=== PATIENT | male | born 2000 | race Caucasian/White ===

== ENCOUNTER → 2019-08-12 14:57 | Outpatient (BNVA) | payer MEDICAID, SELFPAY | PROVIDERS: Visit Provider Nurse Practitioner Family | DX: Z20.828 Contact with and (suspected) exposure to other viral communicable diseases (principal) | CPT/HCPCS: 87804 ==

== ENCOUNTER → 2019-10-12 12:10 | Outpatient (BNVA) | payer MEDICAID, SELFPAY | PROVIDERS: Visit Provider Nurse Practitioner Family | DX: R31.9 Hematuria, unspecified (principal); R31.0 Gross hematuria; R30.0 Dysuria | CPT/HCPCS: 80053; 81003; 85025; 87077; 87086; 87186 ==

== ENCOUNTER 2019-10-18 08:19 | Outpatient (CLI) | payer MEDICAID, SELFPAY ==
--- NOTE | 2019-10-18 09:15 | CT_ITS ---
WS: [id number] CT ABDOMEN PELVIS TECHNIQUE: Noncontrast CT of the abdomen and pelvis with coronal and sagittal reformatted images. CLINICAL INFORMATION: hematuria; right flank pain COMPARISON: None. DLP: 1061.[address] scans at [facility] use at least one of these dose optimization techniques: automat ed exposure control; mA and/or kV adjustment per patient size (includes targeted exams where dose is matched to clinical indication); or iterative reconstruction. FINDINGS: Noncontrast liver is normal. Normal adrenal glands. Noncontrast spleen is normal. Normal GE junction. Patchy subpleural groundglass infiltrates in the right lower lobe suspicious for pneumonitis. This c an be seen with viral pneumonia. Recommend chest CT for further evaluation. Recommend follow-up to re solution. Left lung base is well aerated. No ureteral calculi. No hydronephrosis. Normal caliber abdominal aorta. Scattered stool in the colon. Mild to moderate transverse colon constipation. Appendix is normal. No periaortic lymphadenopathy. N o inguinal lymphadenopathy. CT/CT kidney stone [id number] IMPRESSION: 1. No renal or ureteral calculi. No hydronephrosis. 2. Appendix in the right lower quadrant is air-filled and normal. 3. No abdominal lymphadenopathy. 4. Patchy groundglass subpleural infiltrates in the right lower lobe suspiciou s for pneumonia. This can be seen with viral pneumonia. Recommend further evalu ation with chest CT and follow-up to resolution.
== END 2019-10-18 08:20 | disposition home or self-care (01) ==
LOC: RADWPI 08:23
PROVIDERS: PCP Nurse Practitioner Family; Visit Provider Nurse Practitioner Family
DX: R31.0 Gross hematuria (principal); R10.9 Unspecified abdominal pain; R91.8 Other nonspecific abnormal finding of lung field
CPT/HCPCS: 74176

== ENCOUNTER → 2019-10-22 08:40 | Outpatient (BNVA) | payer MEDICAID, SELFPAY | PROVIDERS: PCP Nurse Practitioner Family; Visit Provider Nurse Practitioner Family | DX: N30.01 Acute cystitis with hematuria (principal); R30.0 Dysuria | CPT/HCPCS: 81001 ==

== ENCOUNTER → 2019-10-25 16:50 | Outpatient (BNVA) | payer MEDICAID, SELFPAY | PROVIDERS: PCP Nurse Practitioner Family; Visit Provider Nurse Practitioner Family | DX: N30.01 Acute cystitis with hematuria (principal); J30.2 Other seasonal allergic rhinitis; R56.9 Unspecified convulsions | CPT/HCPCS: 80053; 81000 ==

== ENCOUNTER 2019-11-09 13:56 | Outpatient (CLI) | payer MEDICAID, SELFPAY ==
--- NOTE | 2019-11-09 14:30 | CT_ITS ---
WS: [id number] CT CHEST WITH INTRAVENOUS CONTRAST HISTORY: hemoptysis 3 days ago and f/u from abd/pelv CT TECHNIQUE: Contiguous 5 mm axial imaging performed on the thorax. Coronal and sagittal reformats are submitted. All CT scans at [facility] use at least one of these dose optimization techniq ues: automated exposure control; mA and/or kV adjustment per patient size (includes targeted exams wh ere dose is matched to clinical indication); or iterative reconstruction. CONTRAST: Visipaque 320; 75 mL IV. DLP: 516.95 mGycm COMPARISON: CT 10/18/2019 Lungs and central airway: Resolved RIGHT lower lobe opacification. Lungs are clear. No pneumonia. Pleura: Normal. No pleural effusion. Heart and pericardium: Normal size heart. No pericardial effusion. Mediastinum and feliberto: No mediastinum or hilar adenopathy. Vessels: Normal size aortic and pulmonary artery. No coronary artery calcifications. Chest wall and lower neck: No soft tissue masses. Upper abdomen: Moderate distention of the transverse colon with fecal material. Visualized adrenal gl ands are normal. Osseous structures: No destructive process. CT/CT chest w con* [id number] IMPRESSION: Normal chest CT. Resolved RIGHT lower lobe pneumonia.
[2019-11-09] MEDS: iodixanol 320 mg/mL 100mL Btl IV (14:48)
== END 2019-11-09 13:57 | disposition home or self-care (01) ==
LOC: RADWPI 14:02
PROVIDERS: PCP Nurse Practitioner Family; Visit Provider Nurse Practitioner Family
DX: R04.2 Hemoptysis (principal)
CPT/HCPCS: 71260; Q9967

== ENCOUNTER → 2020-04-26 15:14 | Outpatient (BNVA) | payer MEDICAID, SELFPAY | PROVIDERS: PCP Nurse Practitioner Family; Visit Provider Urology | DX: N30.01 Acute cystitis with hematuria (principal) | CPT/HCPCS: 81003 ==

== ENCOUNTER → 2020-07-17 13:37 | Outpatient (BNVA) | payer MEDICAID, SELFPAY | PROVIDERS: PCP Nurse Practitioner Family; Visit Provider Nurse Practitioner Family | DX: N30.01 Acute cystitis with hematuria (principal) | CPT/HCPCS: 81003; 87086 ==

== ENCOUNTER → 2020-08-10 13:28 | Outpatient (BNVA) | payer MEDICAID, SELFPAY | PROVIDERS: PCP Nurse Practitioner Family; Visit Provider Psychiatry & Neurology Neurology | DX: R56.9 Unspecified convulsions (principal) | CPT/HCPCS: 80164 ==

== ENCOUNTER 2020-12-02 17:43 | Emergency (ER) | payer MEDICAID, SELFPAY ==
--- NOTE | 2020-12-02 03:22 | XRR_ITS ---
PROCEDURE INFORMATION: Exam: XR Chest Exam date and time: 12/02/2020 3:22 AM Age: 20 years old Clinical indication: Fever; Additional info: Fever AMS TECHNIQUE: Imaging protocol: XR of the chest. Views: 1 view. COMPARISON: CT chest w con* [id number] 11/09/2019 2:45 PM FINDINGS: Lungs: Unremarkable. No consolidation. Pleural spaces: Unremarkable. No pleural effusion. No pneumothorax. Heart/Mediastinum: Unremarkable. No cardiomegaly. Bones/joints: Unremarkable. XR/XR chest 1V portable [id number] IMPRESSION: No acute findings.
[2020-12-02 17:49] VITALS: BP 122/60; PULSE 100; RESP 17; TEMP 37.9; O2SAT 89; BMI 24.1
--- NOTE | 2020-12-02 18:33 | CTR_ITS ---
PROCEDURE INFORMATION: Exam: CT Head Without Contrast Exam date and time: 12/02/2020 6:33 PM Age: 20 years old Clinical indication: Condition or disease; Convulsions or seizures; Unspecified; Patient HX: Recent med changes - seizure x 2 today w fever; Additional info: Dimas MOSS TECHNIQUE: Imaging protocol: Computed tomography of the head without contrast. Radiation optimization: All CT scans at this facility use at least one of these dose optimization techniques: automated exposure control; mA and/or kV adjustment per patient size (includes targeted exams where dose is matched to clinical indication); or iterative reconstruction. COMPARISON: No relevant prior studies available. RADIATION DOSE METRICS: Total DLP (mGy-cm): 840.33 FINDINGS: Brain: Normal. No hemorrhage. Unremarkable white matter. No mass effect. Cerebral ventricles: No ventriculomegaly. Paranasal sinuses: Visualized sinuses are unremarkable. No fluid levels. Mastoid air cells: Visualized mastoid air cells are well aerated. Bones/joints: Unremarkable. No acute fracture. Soft tissues: Unremarkable. CT/CT head wo con* [id number] IMPRESSION: No acute intracranial abnormality. Radiation Dose CTDIVOL = (mGy): DLP = 840.33 (mGy-cm)
[2020-12-02 18:49] LABS: Basophils # 0.1 10^3/uL (0.0-0.1); Basophils % 0.6 %; Eosinophils # 0.2 10^3/uL (0.0-0.8); Hematocrit 42.3 % (42.0-52.0); Lymphocytes # 0.9 10^3/uL (0.8-4.8); Lymphocytes % 8.8 %; Mean Corpuscular HGB Conc 33.1 g/dL (30.0-36.0); Mean Corpuscular Hemoglobin 30.8 pg (28.0-34.0); Mean Corpuscular Volume 93.2 fL (80-94); Mean Platelet Volume 9.2 fL (7.4-10.4); Monocytes # 0.8 10^3/uL (0.2-0.9); Monocytes % 7.5 %; Neutrophils % 80.6 %; Nucleated Red Blood Cells % 0 %; Platelet Count 205 10^3/cmm (130-400); Red Blood Count 4.54 10^6/uL (4.1-5.3); Red Cell Distribution Width 11.9 % (12.1-15.1); White Blood Count 10.2 10^3/uL (4.0-10.0)
[2020-12-02] MEDS: ondansetron 2 mg/ML SDV 2 mL 4 MG IVP (18:51)
[2020-12-02] MEDS: sodium chloride 0.9% 1,000 ML 999 ML IV ×2 (18:51→20:46)
[2020-12-02] MEDS: ketorolac 30 mg/mL INJ IVP (18:51)
[2020-12-02] MEDS: LORazepam 2 mg/mL INJ 1 mL 1.5 MG IVP (18:51)
[2020-12-02 18:56] VITALS: BP 105/65; PULSE 94; RESP 16; O2SAT 95
[2020-12-02 19:09] LABS: Alanine Aminotransferase 13 U/L (0-41); Albumin Level 4.2 g/dL (3.5-5.2); Alkaline Phosphatase 69 IU/L (40-130); Anion Gap 15.8 (5-19); Aspartate Amino Transferase 18 U/L (0-40); Blood Urea Nitrogen 4 mg/dL (6-20); Calcium 9.2 mg/dL (8.5-10.5); Carbon Dioxide 25 mmol/L (22-29); Chloride 98 mmol/L (98-107); Creatine Phosphokinase 159 U/L (39-308); Globulin 2.5 g/dL (1.3-4.6); Glomerular Filtration Rate 120.9 mL/min (90-130); Glucose 105 mg/dL (65-115); Osmolality Calculated 277 mOsm/kg (285-295); Potassium 3.8 mmol/L (3.5-5.1); Sodium 135 mmol/L (136-145); Total Bilirubin 0.3 mg/dL (0.15-1.2); Total Protein 6.7 g/dL (6.6-8.7); Valproic Acid Level 63.5 ug/mL (50-100)
[2020-12-02 19:10] LABS: Lactate (Lactic Acid level) 3.1 mmol/L (0.5-2.2)
[2020-12-02 19:12] LABS: Alcohol Level < 10 mg/dL (0-10)
[2020-12-02 19:15] LABS: Procalcitonin 0.18 ng/mL (0-0.5)
[2020-12-02 20:15] LABS: Add Urine Microscopic? NO; Charge for UA Resulting for Rev
[2020-12-02 20:18] LABS: Bilirubin Urine Neg (Negative); Blood Urine Neg (Negative); Glucose Urine UA Norm (Normal); Ketones Urine Negative (Negative); Leukocyte Esterase Urine Negative (Negative); Nitrate Urine Negative (Negative); Protein Urine Neg (Negative); Specific Gravity, Urine 1.005 (1.005-1.030); Urine Appearance Clear (CLEAR); Urine Color Yellow (Yellow); Urobilinogen Urine Norm (Negative); pH Urine 7 (5-7)
[2020-12-02 20:28] LABS: Amphetamines Screen Urine Negative (Negative); Barbiturates Screen Urine Negative (Negative); Benzodiazepines Screen Urine Negative (Negative); Cocaine Screen Urine Negative (Negative); Opiate Screen Urine Negative (Negative); PCP Screen Urine Negative (Negative); THC Screen Urine Negative (Negative)
[2020-12-02 20:30] VITALS: BP 122/66; PULSE 96; RESP 21; O2SAT 98
--- NOTE | 2020-12-02 20:34 | CTR_ITS ---
PROCEDURE INFORMATION: Exam: CTA Chest With Contrast Exam date and time: 12/02/2020 8:34 PM Age: 20 years old Clinical indication: Chest pressure; Patient HX: C/O chest pain/pressure TECHNIQUE: Imaging protocol: Computed tomographic angiography of the chest with contrast. 3D rendering (Not supervised by radiologist): MIP and/or 3D reconstructed images were created by the technologist. Radiation optimization: All CT scans at this facility use at least one of these dose optimization techniques: automated exposure control; mA and/or kV adjustment per patient size (includes targeted exams where dose is matched to clinical indication); or iterative reconstruction. Contrast material: OMNI 350; Contrast volume: 55 ml; Contrast route: INTRAVENOUS (IV); COMPARISON: CT chest w con* [id number] 11/09/2019 2:45 PM RADIATION DOSE METRICS: Total DLP (mGy-cm): 540.41 FINDINGS: Pulmonary arteries: Normal. No pulmonary emboli. Aorta: Unremarkable. No aortic aneurysm. No aortic dissection. Lungs: Unremarkable. No consolidation. No masses. Pleural spaces: Unremarkable. No pneumothorax. No pleural effusion. Heart: Unremarkable. No cardiomegaly. No pericardial effusion. Lymph nodes: Unremarkable. No enlarged lymph nodes. Bones/joints: Unremarkable. No acute fracture. Soft tissues: Unremarkable. CT/CT angio chest PE protcl [id number] IMPRESSION: No acute findings. Radiation Dose CTDIVOL = (mGy): DLP = 540.41 (mGy-cm)
--- NOTE | 2020-12-02 21:18 | W.ED.FEVER ---
HPI - Fever General: Chief Complaint: Fever Stated Complaint: FEVER/seizure Time Seen by Provider: 12/02/20 17:55 History of Present Illness: HPI Narrative: 20-year-old male with a history of seizure disorder. He presents with a fever today. He has a history of developmental delay as well. His mother states he did not feel well yesterday. He had a seizure at 8:00 this morning, along with a fever. He had another seizure at noon and vomited as well at that time. He has been complaining of a headache. He is not been overly coughing or congested. He says that his throat is not sore. He has not missed any medication. No known exposure to illness. MD elicited complaint: fever Pertinent past history: other Onset (ago): day(s) Relieving factors: nothing Associated symptoms: Reports chills, confusion, headache(s), nasal congestion, nausea, rhinorrhea and vomiting; Deny abdominal pain, chest pain, cough or diarrhea Review of Systems Const: Reports: fever(s) and chills ENMT: Reports: nasal congestion Card: Denies: chest pain Resp: Denies: dyspnea, productive cough or non-productive cough GI: Reports: nausea and vomiting; Denies: abdominal pain or diarrhea Neuro: Reports: headache(s) and confusion PFSH ED PFSH: Medical History Acute cystitis Asthma Benign tumor of pituitary gland Constipation, chronic Seasonal allergies Seizures Surgical History History of tonsillectomy and adenoidectomy Hx of hernia repair Family History Father Heart disease Social History Smoking and tobacco status: current every day smoker smokeless tobacco Second hand smoke exposure: Yes Alcohol intake: never Caregiver/support person: No Lives independently: No Household members: family Marital status: Single service: No Current occupational status: disabled History of recent travel: No Current gender identity: Male Physical Exam Const: GENERAL APPEARANCE: lethargic and ill appearing ORIENTATION/CONSCIOUSNESS: Yes oriented to person, Yes oriented to place, Yes oriented to time and Yes lethargic HENMT: COMMON NORMALS: external ears normal and Normal external nose present FACE & SINUS: normal facial exam NOSE: Normal external nose present and No nasal discharge present EXTERNAL EAR: Yes external ears normal THROAT: posterior oropharynx normal; no peritonsillar mass Eye: COMMON NORMALS: Equal, round and reactive pupils present, EOMs intact bilaterally and conjunctivae normal EYELID: eyelids normal CONJUNCTIVA: Yes conjunctivae normal PUPIL: Yes Equal, round and reactive pupils present Neck/C-Spine: GENERAL: No tracheal deviation Chest: COMMONS NORMALS: normal inspection of the chest CHEST: No tenderness Resp: COMMON NORMALS: clear to auscultation bilaterally EFFORT & INSPECTION: No tachypneic, No respiratory distress, No retractions, No uses accessory muscles and No tracheal deviation AUSCULTATION: clear to auscultation bilaterally, no rhonchi, no wheezes and lung sounds not diminished Cardio: COMMON NORMALS: regular rate and regular rhythm RATE: regular rate RHYTHM: regular rhythm HEART SOUNDS: no murmurs PERIPHERAL PULSES: radial pulses present GI: INSPECTION: No abdominal distension AUSCULTATION: No Hyperactive bowel sounds present and No Hypoactive bowel sounds present PALPATION: No Guarding due to palpation present (GI) and No Rigid due to palpation PERCUSSION: no dullness to percussion and no tympanic to percussion Neuro: SENSORIUM/ORIENTATION: Yes oriented to person, Yes oriented to place, Yes oriented to time and Yes lethargic Psych: COMMON NORMALS: mental status grossly normal Skin: COMMON NORMALS: no rashes or lesions noted GENERAL SKIN EXAM: no rashes or lesions noted Course Vital Signs: Vital signs: Vital Signs Temperature 100.2 F H 12/02/20 17:49 Pulse Rate 76 12/02/20 23:56 Respiratory Rate 16 12/02/20 23:56 Blood Pressure 106/64 12/02/20 23:56 Pulse Oximetry 95 12/02/20 23:56 MDM - Fever MDM Narrative: Medical decision making narrative: 20-year-old male with developmental delay. He presents postictal following two seizures earlier today. He is vomited once. He has a fever here. The fever is broken after Toradol and IV fluid bolus. His white blood cell count is 10.2. His electrolytes are essentially normal. His chest x-ray is normal. His oxygenation was not good initially. His pulse ox was reading in the low 90s. He was placed on 2 L of oxygen. He is now on room air, breathing fine. Oxygen saturations 96 to 98% on room air. His heart rate is down now that his fever is broken in the 80s. His blood pressure is 93/47. He is talking. CTA of the chest was ordered, as there is some suspicion of aspiration when he vomited. It is pending. Patient now breathing room air, saturations are above 94%. CTA of the chest is negative. Is much more alert. He has walked in the ER. He will be allowed home. Lab Data: Labs: Lab Results 12/02/20 12/02/20 12/02/20 Range/Units 18:45 18:45 18:45 WBC 10.2 H (4.0-10.0) 10^3/ uL RBC 4.54 (4.1-5.3) 10^6/u L Hgb 14.0 (11.7-16.6) g/dL Hct 42.3 (42.0-52.0) % MCV 93.2 (80-94) fL MCH 30.8 (28.0-34.0) pg MCHC 33.1 (30.0-36.0) g/dL RDW 11.9 L (12.1-15.1) % Plt Count 205 (130-400) 10^3/c mm MPV 9.2 (7.4-10.4) fL Neut % (Auto) 80.6 % Lymph % (Auto) 8.8 % Harrison % (Auto) 7.5 % Eos % (Auto) 2.0 % Baso % (Auto) 0.6 % Neut # (Auto) 8.20 H (1.8-7.7) 10^3/u L Lymph # (Auto) 0.9 (0.8-4.8) 10^3/u L Harrison # (Auto) 0.8 (0.2-0.9) 10^3/u L Eos # (Auto) 0.2 (0.0-0.8) 10^3/u L Baso # (Auto) 0.1 (0.0-0.1) 10^3/u L Nucleated RBC % (a uto) 0 % Nucleated RBCs # 0.0 /100WBC Sodium 135 L (136-145) mmol/L Potassium 3.8 (3.5-5.1) mmol/L Chloride 98 (98-107) mmol/L Carbon Dioxide 25 (22-29) mmol/L Anion Gap 15.8 (5-19) BUN 4 L (6-20) mg/dL Creatinine 0.8 (0.7-1.2) mg/dL GFR Calculation 120.9 (90-130) mL/min Glucose 105 (65-115) mg/dL Calculated Osmolal ity 277 L (285-295) mOsm/k g Lactate 3.1 H (0.5-2.2) mmol/L Calcium 9.2 (8.5-10.5) mg/dL Total Bilirubin 0.3 (0.15-1.2) mg/dL AST 18 (0-40) U/L ALT 13 (0-41) U/L Alkaline Phosphata se 69 (40-130) IU/L Creatine Kinase 159 (39-308) U/L C-Reactive Protein 1.0 (0.0-4.9) mg/L Total Protein 6.7 (6.6-8.7) g/dL Albumin 4.2 (3.5-5.2) g/dL Globulin 2.5 (1.3-4.6) g/dL Procalcitonin 0.18 (0-0.5) ng/mL Urine Color (Yellow) Urine Appearance (CLEAR) Urine pH (5-7) Ur Specific Gravit y (1.005-1.030) Urine Protein (Negative) Urine Glucose (UA) (Normal) Urine Ketones (Negative) Urine Blood (Negative) Urine Nitrate (Negative) Urine Bilirubin (Negative) Urine Urobilinogen (Negative) mg/dL Ur Leukocyte Ita ase (Negative) Urine Opiates Scre en (Negative) ng/mL Ur Barbiturates Sc reen (Negative) ng/mL Valproic Acid 63.5 (50-100) ug/mL Ur Phencyclidine S crn (Negative) ng/mL Ur Amphetamines Sc reen (Negative) ng/mL U Benzodiazepines Scrn (Negative) ng/mL Urine Cocaine Scre en (Negative) ng/mL U Marijuana (THC) Screen (Negative) ng/mL Ethyl Alcohol < 10 (0-10) mg/dL SARS-CoV-2 Ag (Rap id) (Negative) 12/02/20 12/02/20 12/02/20 Range/Units 20:09 20:09 20:54 WBC (4.0-10.0) 10^3/ uL RBC (4.1-5.3) 10^6/u L Hgb (11.7-16.6) g/dL Hct (42.0-52.0) % MCV (80-94) fL MCH (28.0-34.0) pg MCHC (30.0-36.0) g/dL RDW (12.1-15.1) % Plt Count (130-400) 10^3/c mm MPV (7.4-10.4) fL Neut % (Auto) % Lymph % (Auto) % Harrison % (Auto) % Eos % (Auto) % Baso % (Auto) % Neut # (Auto) (1.8-7.7) 10^3/u L Lymph # (Auto) (0.8-4.8) 10^3/u L Harrison # (Auto) (0.2-0.9) 10^3/u L Eos # (Auto) (0.0-0.8) 10^3/u L Baso # (Auto) (0.0-0.1) 10^3/u L Nucleated RBC % (a uto) % Nucleated RBCs # /100WBC Sodium (136-145) mmol/L Potassium (3.5-5.1) mmol/L Chloride (98-107) mmol/L Carbon Dioxide (22-29) mmol/L Anion Gap (5-19) BUN (6-20) mg/dL Creatinine (0.7-1.2) mg/dL GFR Calculation (90-130) mL/min Glucose (65-115) mg/dL Calculated Osmolal ity (285-295) mOsm/k g Lactate (0.5-2.2) mmol/L Calcium (8.5-10.5) mg/dL Total Bilirubin (0.15-1.2) mg/dL AST (0-40) U/L ALT (0-41) U/L Alkaline Phosphata se (40-130) IU/L Creatine Kinase (39-308) U/L C-Reactive Protein (0.0-4.9) mg/L Total Protein (6.6-8.7) g/dL Albumin (3.5-5.2) g/dL Globulin (1.3-4.6) g/dL Procalcitonin (0-0.5) ng/mL Urine Color Yellow (Yellow) Urine Appearance Clear (CLEAR) Urine pH 7 (5-7) Ur Specific Gravit y 1.005 (1.005-1.030) Urine Protein Neg (Negative) Urine Glucose (UA) Norm (Normal) Urine Ketones Negative (Negative) Urine Blood Neg (Negative) Urine Nitrate Negative (Negative) Urine Bilirubin Neg (Negative) Urine Urobilinogen Norm (Negative) mg/dL Ur Leukocyte Ita ase Negative (Negative) Urine Opiates Scre en Negative (Negative) ng/mL Ur Barbiturates Sc reen Negative (Negative) ng/mL Valproic Acid (50-100) ug/mL Ur Phencyclidine S crn Negative (Negative) ng/mL Ur Amphetamines Sc reen Negative (Negative) ng/mL U Benzodiazepines Scrn Negative (Negative) ng/mL Urine Cocaine Scre en Negative (Negative) ng/mL U Marijuana (THC) Screen Negative (Negative) ng/mL Ethyl Alcohol (0-10) mg/dL SARS-CoV-2 Ag (Rap id) Negative (Negative) Discharge Plan Discharge Patient Disposition: Home Clinical Impression: Viral infection, Seizures Condition: Stable Prescriptions: New ondansetron 4 mg film 4 mg PO DAILY PRN (Reason: nausea and vomiting) Qty: 10 RF: 0 No Action latanoprost [Xalatan] 0.005 % drops 1 drop ophthalmic (eye) DAILY RF: 0 Combivent Respimat 20-100 mcg/actuation mist 1 puff INHALATION Q4H PRN (Reason: wheezing) Qty: 4 RF: 3 divalproex [Depakote] 500 mg tablet,delayed release (DR/EC) 500 mg PO DAILY Qty: 30 RF: 3 fluticasone propion-salmeterol [Advair Diskus] 100-50 mcg/dose blister with device 1 inh INHALATION BID Qty: 60 RF: 2 cetirizine [Zyrtec] 10 mg tablet 10 mg PO DAILY Qty: 30 RF: 11 montelukast 10 mg tablet 10 mg PO .HS Qty: 30 RF: 11 fluticasone propionate [Flonase Allergy Relief] 50 mcg/actuation spray,suspension 2 spray INTRANASAL DAILY Qty: 15.8 RF: 5 phenazopyridine [Azo Urinary Pain Relief] 95 mg tablet 95 mg PO TID PRNRF: 0 Discharge Orders: Discharge ED (Routine); Ordered 12/02/20 Ordered By: Patric Rea Referrals: Shima Larson, GARBAGE PERSON [Primary Care Provider] - 1-3 days Discharge Diet: Advance as tolerated and Clear Liquid Discharge Activity: Increase activity as tolerated Patient Instructions: Viral Syndrome (ED), Recurrent Seizures Adult (ED) Activity Restrictions/Additional Instructions: Stay hydrated. Check temperature often, and treat accordingly. Return for repeated episodes of seizure, vomiting liquids or medications, continued alteration of mental status, any other concerning symptoms. Coding Level of Care Code ED Air Chipper for [place] Fwd Exam Comprehensive
[2020-12-02 21:20] LABS: SARS Covid-2 Antigen Negative (Negative)
[2020-12-02] MEDS: iohexol 350 mg/mL 100 mL Btl IV (21:53)
[2020-12-02 22:29] VITALS: BP 105/52; PULSE 81; RESP 17; O2SAT 96
[2020-12-02 23:56] VITALS: BP 106/64; PULSE 76; RESP 16; O2SAT 95
[2020-12-04 12:27] LABS: Quest SARS-CoV-2 RNA NOT DETECTED (NOT DETECTED)
== END 2020-12-02 23:56 | disposition home or self-care (01) ==
PROVIDERS: Family Medicine; Emergency Provider Emergency Medicine; PCP Nurse Practitioner Family
DX: B34.9 Viral infection, unspecified (principal); R56.9 Unspecified convulsions; F17.210 Nicotine dependence, cigarettes, uncomplicated
CPT/HCPCS: 70450; 71045; 71275; 80053; 80164; 80306; 80307; 81003; 82550; 83605; 84145; 85025; 86140; 87426; 87635; 96361; 96374; 96375; 99284; J1885; J2060; J2405; J7030; Q9967

== ENCOUNTER → 2020-12-20 12:53 | Outpatient (BNVA) | payer MEDICAID, SELFPAY | PROVIDERS: PCP Nurse Practitioner Family; Visit Provider Urology | DX: N30.01 Acute cystitis with hematuria (principal) | CPT/HCPCS: 81003 ==

== ENCOUNTER → 2021-01-17 11:20 | Outpatient (BNVA) | payer MEDICAID, SELFPAY | PROVIDERS: PCP Nurse Practitioner Family; Visit Provider Nurse Practitioner Family | DX: Z20.822 Contact with and (suspected) exposure to COVID-19 (principal); Z11.52 Encounter for screening for COVID-19 | CPT/HCPCS: 87635 ==

== ENCOUNTER → 2021-01-23 16:08 | Outpatient (BNVA) | payer MEDICAID, SELFPAY | PROVIDERS: PCP Nurse Practitioner Family; Visit Provider Nurse Practitioner Family | DX: R30.0 Dysuria (principal) | CPT/HCPCS: 81003 ==

== ENCOUNTER 2021-05-12 11:40 | Emergency (ER) | payer MEDICAID, SELFPAY ==
--- NOTE | 2021-05-12 11:42 | W.ED.SEIZURE ---
HPI - Seizure General: Chief Complaint: Seizure Stated Complaint: SEIZURES Time Seen by Provider: 05/12/21 11:42 History of Present Illness: HPI Narrative: Mr. Man is a 20-year-old gentleman with significant past medical history of developmental delayed, asthma, and EEG proven epilepsy who presents to the emergency department due to seizure. His seizures are typically well controlled on his baseline Depakote 500 mg daily and he has periods of time where he goes months seizure-free. He has mostly been at his baseline health though mother does report one episode of dark brown emesis yesterday without significant associated abdominal discomfort or other changes noted. This morning, he was found to have a seizure which was described as generalized shaking and grinding his teeth. This is typical of his seizures. However, the atypical feature is that the first 1 lasted approximately 30 minutes and then 45 minutes later he had another 20-minute seizure. He does have associated postictal period and in the interval he had more last return to baseline though fatigue was still present. He has not taken his medications this morning however has not missed any recent doses otherwise. No other recent changes to health, known provoking, exacerbating, or alleviating factors identified. History provided by patient's mother at bedside. The patient currently follows with Dr. Martinez Review of Systems General: Reports: 10 or more systems reviewed and unremarkable except in HPI and below PFSH ED PFSH: Medical History Acute cystitis Asthma Benign tumor of pituitary gland Constipation, chronic Seasonal allergies Seizures Surgical History History of tonsillectomy and adenoidectomy Hx of hernia repair Family History Father Heart disease Social History Smoking and tobacco status: never smoked Second hand smoke exposure: Yes Alcohol intake: never Caregiver/support person: No Lives independently: No Household members: family Marital status: Single service: No Current occupational status: disabled History of recent travel: No Current gender identity: Male Physical Exam Narrative: EXAM NARRATIVE: GENERAL/CONSTITUTIONAL - well-appearing. No acute distress. Eyes - PERRL, no conjunctival injection ENMT - Atraumatic external nose and ears. No tongue trauma. Moist mucous membranes NECK - supple. trachea midline CARDIOVASCULAR - regular rate and rhythm. RESPIRATORY -clear to auscultation bilaterally. ABDOMEN/GI - Nontender/Nondistended. MSK - Extremities without obvious deformity or tenderness to palpation SKIN - Warm, Dry NEURO - alert and appropriately oriented. No focal neurologic deficits. Patient moves all extremities equally. Does not appear to be postictal. PSYCH/COGNITIVE - patient does appear to have some level of disability Course ED course: - Patient was seen and evaluated by me at bedside - Patient placed on cardiac monitors, IV access obtained - Initial evaluation notable for exam as noted above, no acute distress, not postictal. - Laboratory studies obtained. No acute abnormality to explain the patient's increase in seizure frequency. valproic acid level minimally subtherapeutic though he has not valproic acid yet this morning. Bolus ordered. - I tried to discuss the case with the patient's primary neurologist however he is not on-call and I ended up being connected with his organizations on-call neurologist in [place]. Initially I was thinking of requesting recommendations regarding medication adjustment however after discussion with the neurologist on-call he recommends transfer for further evaluation given that we do not have neurology on-call and do not have ability for EEG - I discussed this recommendation with the patient and his family. Unfortunately they were adamantly opposed to this primarily due to financial reasons. I discussed that hospitals have case management and social workers who can aid in the cost regarding medical care however they continue to decline transfer. - One of the discussions was regarding imaging when discussing with neurology, given that patient will not be transferred and have imaging at receiving facility he was agreeable to obtain CT here. No obvious abnormality to explain patient's seizures. - Ultimately, after thorough discussion of risks and benefits with both patient and his parents he is choosing to leave AGAINST MEDICAL ADVICE. I explained risks of prolonged seizures and the patient and his family verbalized understanding. This is a challenging situation given the patient's baseline cognitive status however given that his parents do not have legal guardianship the patient has to make his own decisions. To the best my ability I believe that he can understand the explanations provided to him and recommendations regarding medical treatment as well as risks for failing to abide by those recommendations - The patient left the emergency department AGAINST MEDICAL ADVICE Vital Signs: Vital signs: Vital Signs Temperature 98.6 F 05/12/21 12:26 Pulse Rate 83 05/12/21 12:26 Respiratory Rate 19 H 05/12/21 12:26 Blood Pressure 131/67 05/12/21 12:26 Pulse Oximetry 97 05/12/21 12:26 MDM - Seizure Medical Records: Attestation: I reviewed the patient's medical records. Lab Data: Attestation: I reviewed the patient's lab results. Labs: Lab Results 05/12/21 05/12/21 05/12/21 12:20 12:20 12:20 WBC 8.2 10^3/uL 10^3/ uL (4.0-10.0) RBC 4.69 10^6/uL 10^6 /uL (4.1-5.3) Hgb 13.9 g/dL g/dL (11.7-16.6) Hct 42.2 % % (42.0-52.0) MCV 90.0 fl fl (80-94) MCH 29.6 pg pg (28.0-34.0) MCHC 32.9 g/dL g/dL (30.0-36.0) RDW 12.6 % % (12.1-15.1) Plt Count 266 10^3/cmm 10^3 /cmm (130-400) MPV 9.4 fL fL (7.4-10.4) Neut % (Auto) 80.9 % % Lymph % (Auto) 9.2 % % [place] % (Auto) 8.2 % % Eos % (Auto) 0.9 % % Baso % (Auto) 0.4 % % Neut # (Auto) 6.61 10^3/uL 10^3 /uL (1.8-7.7) Lymph # (Auto) 0.8 10^3/uL 10^3/ uL (0.8-4.8) [place] # (Auto) 0.7 10^3/uL 10^3/ uL (0.2-0.9) Eos # (Auto) 0.1 10^3/uL 10^3/ uL (0.0-0.8) Baso # (Auto) 0.0 10^3/uL 10^3/ uL (0.0-0.1) Nucleated RBC % (a uto) 0 % % Nucleated RBCs # 0.0 /100WBC /100W BC PT 13.90 SECONDS SEC ONDS (12.1-14.9) INR 1.04 (0.8-1.2) Sodium 139 mmol/L mmol/L (136-145) Potassium 3.9 mmol/L mmol/L (3.5-5.1) Chloride 102 mmol/L mmol/L (98-107) Carbon Dioxide 25 mmol/L mmol/L (22-29) Anion Gap 15.9 (5-19) BUN 8 mg/dL mg/dL (6-20) Creatinine 0.7 mg/dL mg/dL (0.7-1.2) GFR Calculation 141.0 mL/min H mL /min (90-130) Glucose 80 mg/dL mg/dL (65-115) Calculated Osmolal ity 285 mOsm/kg mOsm/ kg (285-295) Calcium 9.0 mg/dL mg/dL (8.5-10.5) Total Bilirubin 0.4 mg/dL mg/dL (0.15-1.2) AST 13 U/L U/L (0-40) ALT 12 U/L U/L (0-41) Alkaline Phosphata se 68 IU/L IU/L (40-130) Total Protein 6.7 g/dL g/dL (6.6-8.7) Albumin 4.3 g/dL g/dL (3.5-5.2) Globulin 2.4 g/dL g/dL (1.3-4.6) Valproic Acid 48.8 ug/mL L ug/m L (50-100) Discharge Plan Discharge Patient Disposition: Home Clinical Impression: Generalized seizure, On valproic acid therapy Condition: Stable Prescriptions: New Diastat AcuDial 5-7.5-10 mg kit 10 mg WI ONCE PRN (Reason: seizure activity) Qty: 1 RF: 1 No Action latanoprost [Xalatan] 0.005 % drops 1 drop ophthalmic (eye) DAILY RF: 0 divalproex [Depakote] 500 mg tablet,delayed release (DR/EC) 500 mg PO DAILY Qty: 30 RF: 3 fluticasone propionate [Flonase Allergy Relief] 50 mcg/actuation spray,suspension 2 spray INTRANASAL DAILY Qty: 15.8 RF: 5 promethazine-DM 6.25-15 mg/5 mL syrup 5 ml PO Q6H PRN (Reason: cough) Qty: 150 RF: 0 meloxicam 15 mg tablet 15 mg PO DAILY Qty: 30 RF: 0 prednisone 20 mg tablet 40 mg PO BID 5 Days Qty: 20 RF: 0 ondansetron HCl [Zofran] 4 mg tablet 4 mg PO Q8H PRN (Reason: nausea and vomiting) Qty: 20 RF: 0 cetirizine [Zyrtec] 10 mg tablet 10 mg PO DAILY Qty: 30 RF: 11 fluticasone propion-salmeterol [Advair Diskus] 100-50 mcg/dose blister with device 1 inh INHALATION BID Qty: 60 RF: 2 Combivent Respimat 20-100 mcg/actuation mist 1 puff INHALATION Q4H PRN (Reason: wheezing) Qty: 4 RF: 3 cephalexin 500 mg capsule 500 mg PO TID 10 Days Qty: 30 RF: 0 montelukast 10 mg tablet 10 mg PO .HS Qty: 30 RF: 11 mupirocin 2 % ointment 1 applic topical TID Qty: 15 RF: 0 Discharge Orders: Discharge ED (Routine); Ordered 05/18/21 Ordered By: Migue Dixon Referrals: Shima Larson FNP [Primary Care Provider] - Discharge Diet: Usual diet Discharge Activity: Limit activity as instructed Patient Instructions: Epilepsy (ED) Activity Restrictions/Additional Instructions: Thank you for visiting the emergency department. You were seen and evaluated for seizure. The exact cause of your seizure is unclear however is likely related to your underlying seizure disorder. As discussed, in consultation with neurology, we recommend transfer and evaluation by a neurologist which you are declining. You are choosing to leave AGAINST MEDICAL ADVICE. Seizures, especially prolonged ones, can cause permanent damage and the longer a seizure persists the less likely it is to resolve on its own. Seizures can also lead to or worse. Please follow-up with your neurologist first thing on Friday. Please follow-up with your primary care provider. You are welcome to go to any emergency department for any reason at any time. Coding Level of Care Code ED Button Decorating Machine Operator for Marcus Cobos
[2021-05-12 11:44] VITALS: BP 131/67; PULSE 81; RESP 17; TEMP 37.1; O2SAT 97; BMI 24.1
[2021-05-12 12:25] LABS: Basophils % 0.4 %; Eosinophils # 0.1 10^3/uL (0.0-0.8); Eosinophils % 0.9 %; Hematocrit 42.2 % (42.0-52.0); Hemoglobin 13.9 g/dL (11.7-16.6); Lymphocytes # 0.8 10^3/uL (0.8-4.8); Lymphocytes % 9.2 %; Mean Corpuscular HGB Conc 32.9 g/dL (30.0-36.0); Mean Corpuscular Hemoglobin 29.6 pg (28.0-34.0); Mean Platelet Volume 9.4 fL (7.4-10.4); Monocytes # 0.7 10^3/uL (0.2-0.9); Monocytes % 8.2 %; Neutrophils # 6.61 10^3/uL (1.8-7.7); Neutrophils % 80.9 %; Nucleated Red Blood Cells % 0 %; Platelet Count 266 10^3/cmm (130-400); Red Blood Count 4.69 10^6/uL (4.1-5.3); Red Cell Distribution Width 12.6 % (12.1-15.1); White Blood Count 8.2 10^3/uL (4.0-10.0)
[2021-05-12 12:26] VITALS: BP 131/67; PULSE 83; RESP 19; TEMP 37; O2SAT 97
[2021-05-12 12:40] LABS: INR 1.04 (0.8-1.2)
[2021-05-12 12:50] LABS: Alanine Aminotransferase 12 U/L (0-41); Albumin Level 4.3 g/dL (3.5-5.2); Alkaline Phosphatase 68 IU/L (40-130); Anion Gap 15.9 (5-19); Aspartate Amino Transferase 13 U/L (0-40); Blood Urea Nitrogen 8 mg/dL (6-20); Carbon Dioxide 25 mmol/L (22-29); Chloride 102 mmol/L (98-107); Globulin 2.4 g/dL (1.3-4.6); Glucose 80 mg/dL (65-115); Osmolality Calculated 285 mOsm/kg (285-295); Potassium 3.9 mmol/L (3.5-5.1); Sodium 139 mmol/L (136-145); Total Bilirubin 0.4 mg/dL (0.15-1.2); Total Protein 6.7 g/dL (6.6-8.7); Valproic Acid Level 48.8 ug/mL (50-100)
[2021-05-12] MEDS: sodium chloride 0.9% 1,000 ML 999 ML IV (12:50)
--- NOTE | 2021-05-12 14:33 | CTR_ITS ---
PROCEDURE INFORMATION: Exam: CT Head Without Contrast Exam date and time: 05/12/2021 2:33 PM Age: 20 years old Clinical indication: Condition or disease; Convulsions or seizures; Epilepsy; Severity not specified; Unspecified; Patient HX: Multiple extended seizures today; Additional info: Seizure TECHNIQUE: Imaging protocol: Computed tomography of the head without contrast. Radiation optimization: All CT scans at this facility use at least one of these dose optimization techniques: automated exposure control; mA and/or kV adjustment per patient size (includes targeted exams where dose is matched to clinical indication); or iterative reconstruction. COMPARISON: CT head wo con* [id number] 12/02/2020 7:07 PM RADIATION DOSE METRICS: Total DLP (mGy-cm): 852.86 FINDINGS: Brain: No intracranial hemorrhage. Normal sanchez white differentiation. No evidence of edema or territorial infarct. No abnormal mass effect or midline shift. No extra-axial fluid collection. Cerebral ventricles: No ventriculomegaly. Paranasal sinuses: Visualized sinuses are unremarkable. No fluid levels. Mastoid air cells: Visualized mastoid air cells are well aerated. Bones/joints: No acute fracture. Soft tissues: Unremarkable. CT/CT head wo con* [id number] IMPRESSION: No acute intracranial abnormality. Radiation Dose CTDIVOL = (mGy): DLP = 852.86 (mGy-cm)
--- NOTE | 2021-05-12 14:56 | PC.NURSE ---
Pts mom at bedside, requesting a urinal for pt. Pt given a urinal and refused assistance from this RN and his mom. Mom spoke with this RN after pt was done and advised pt mostly missed the urinal and his clothes are now wet. Pt offered blue paper scrubs to get changed but refused. Mom advised this RN to call if pt changed his mind about the scrubs
--- NOTE | 2021-05-12 17:20 | PC.NURSE ---
Pt left AMA with parents. Dr. Dixon gave pt prescription and discharge paperwork
== END 2021-05-12 17:22 | disposition home or self-care (01) ==
PROVIDERS: Emergency Provider Emergency Medicine; PCP Nurse Practitioner Family
DX: G40.409 Other generalized epilepsy and epileptic syndromes, not intractable, without status epilepticus (principal); Z77.22 Contact with and (suspected) exposure to environmental tobacco smoke (acute) (chronic)
CPT/HCPCS: 70450; 80053; 80164; 85025; 85610; 96360; 99283; 99291; J7030

== ENCOUNTER 2021-06-10 02:42 | Emergency (ER) | payer MEDICAID, SELFPAY ==
[2021-06-10 02:43] VITALS: BMI 27.5
--- NOTE | 2021-06-10 02:47 | ED_ITS ---
HPI - Seizure General: Chief Complaint: Seizure Stated Complaint: seizures Time Seen by Provider: 06/10/21 02:44 Source: patient and EMS Mode of arrival: EMS Limitations: no limitations History of Present Illness: HPI Narrative: 21-year-old male has a history of epilepsy developmental delay he is on Depakote for his seizures at home. He has been taking his Depakote he has had 2 seizures today one yesterday morning and 1 tonight lasting roughly 2 to 3 minutes he is now awake alert at his baseline has no complaints denies having his head denies headache denies fever denies any recent illness. He had no vomiting or diarrhea. MD complaint: seizure Seizure History: Yes Associated symptoms: Deny chest pain, chills or fever(s) Review of Systems Const: Denies: fever(s), chills, body aches or change in appetite Eyes: Denies: blurry vision or eye discomfort ENMT: Denies: throat pain or dental pain Card: Denies: chest pain Resp: Denies: dyspnea GI: Denies: abdominal pain, nausea, vomiting or diarrhea : Denies: dysuria Musc: Denies: neck pain or back pain Skin/Breast: Denies: rash Neuro: Reports: seizure-like activity Psych: Denies: depression Partha/Lymph: Denies: easy bruising All/Imm: Denies: urticaria PFSH ED PFSH: Medical History Acute cystitis Asthma Benign tumor of pituitary gland Constipation, chronic Seasonal allergies Seizures Surgical History History of tonsillectomy and adenoidectomy Hx of hernia repair Family History Father Heart disease Social History Smoking and tobacco status: never smoked Second hand smoke exposure: Yes Alcohol intake: never Caregiver/support person: No Lives independently: No Household members: family Marital status: Single service: No Current occupational status: disabled History of recent travel: No Current gender identity: Male Physical Exam Const: COMMON NORMALS: no acute distress, patient oriented x3 and healthy appearing HENMT: COMMON NORMALS: normocephalic and atraumatic HEAD & SCALP: normocephalic and atraumatic Eye: COMMON NORMALS: Equal, round and reactive pupils present and EOMs intact bilaterally PUPIL: Yes Equal, round and reactive pupils present Neck/C-Spine: COMMON NORMALS: full ROM and supple Chest: COMMONS NORMALS: normal inspection of the chest and normal palpation of entire chest wall Resp: COMMON NORMALS: normal respiratory effort, No retractions, No use of accessory muscles and clear to auscultation bilaterally AUSCULTATION: clear to auscultation bilaterally Cardio: COMMON NORMALS: regular rate, regular rhythm and No murmurs present (Cardio) RATE: regular rate RHYTHM: regular rhythm GI: COMMON NORMALS: Normal to inspection, nondistended, normoactive bowel sounds present, Soft to palpation, non-tender and no masses PALPATION: Yes Soft to palpation Extremity: COMMON NORMALS: normal to inspection and full ROM Neuro: COMMON NORMALS: patient oriented x3, moves all extremities and no focal motor deficits Psych: COMMON NORMALS: mental status grossly normal, Normal thought process present and cooperative THOUGHT PROCESS: Normal thought process present Skin: COMMON NORMALS: no rashes or lesions noted and no wounds GENERAL SKIN EXAM: no rashes or lesions noted Course Vital Signs: Vital signs: Vital Signs Pulse Rate 122 H 06/10/21 05:08 Respiratory Rate 19 H 06/10/21 05:08 Blood Pressure 113/64 06/10/21 05:08 Pulse Oximetry 94 06/10/21 05:08 MDM - Seizure MDM Narrative: Medical decision making narrative: Patient presents here with multiple seizures at home he had another seizure here as well patient was given Ativan and Depakote blood work here is normal I did speak to physician at [place] and will transfer there for higher level of care as we do not have neurology on-call here and his neurologist is at [place] as well for recurrent seizures. Head CT here is normal. Lab Data: Labs: Lab Results 06/10/21 06/10/21 06/10/21 04:24 04:24 04:24 WBC 9.7 10^3/uL 10^3/ uL (4.0-10.0) RBC 5.01 10^6/uL 10^6 /uL (4.1-5.3) Hgb 14.4 g/dL g/dL (11.7-16.6) Hct 45.4 % % (42.0-52.0) MCV 90.6 fl fl (80-94) MCH 28.7 pg pg (28.0-34.0) MCHC 31.7 g/dL g/dL (30.0-36.0) RDW 12.4 % % (12.1-15.1) Plt Count 311 10^3/cmm 10^3 /cmm (130-400) MPV 9.9 fL fL (7.4-10.4) Neut % (Auto) 46.4 % % Lymph % (Auto) 34.8 % % [place] % (Auto) 15.4 % % Eos % (Auto) 2.5 % % Baso % (Auto) 0.7 % % Neut # (Auto) 4.50 10^3/uL 10^3 /uL (1.8-7.7) Lymph # (Auto) 3.4 10^3/uL 10^3/ uL (0.8-4.8) [place] # (Auto) 1.5 10^3/uL H 10^ 3/uL (0.2-0.9) Eos # (Auto) 0.2 10^3/uL 10^3/ uL (0.0-0.8) Baso # (Auto) 0.1 10^3/uL 10^3/ uL (0.0-0.1) Nucleated RBC % (a uto) 0 % % Nucleated RBCs # 0.0 /100WBC /100W BC Sodium 143 mmol/L mmol/L (136-145) Potassium 3.1 mmol/L L mmol /L (3.5-5.1) Chloride 99 mmol/L mmol/L (98-107) Carbon Dioxide 15 mmol/L L mmol/ L (22-29) Anion Gap 32.1 H (5-19) BUN 5 mg/dL L mg/dL (6-20) Creatinine 0.8 mg/dL mg/dL (0.7-1.2) GFR Calculation 119.8 mL/min mL/m in (90-130) Glucose 130 mg/dL H mg/dL (65-115) Calculated Osmolal ity 295 mOsm/kg mOsm/ kg (285-295) Calcium 9.2 mg/dL mg/dL (8.5-10.5) Valproic Acid 56.2 ug/mL ug/mL (50-100) Imaging Data^: CT Head: Attestation: I personally reviewed and interpreted this imaging study as follows: Radiologist's impression: [id number] [place] [address] CT Scan Report Signed Patient: Hussein Man Unit #: [id number] : 2000 Age/Sex: 21 / M ADM Date: 06/10/21 Loc: ER Room/Bed: Attending Dr: Ordering Provider/Ordering MD: Trinh Jade MD Date of Service: 06/10/21 Procedure(s): CT head wo con* [id number] Accession Number(s): [id number] Report Number: [id number] PROCEDURE INFORMATION: Exam: CT Head Without Contrast Exam date and time: 06/10/2021 3:17 AM Age: 21 years old Clinical indication: Patient HX: Seizure today. History of seizure disorder. History of benign pituitary tumor. TECHNIQUE: Imaging protocol: Computed tomography of the head without contrast. Radiation optimization: All CT scans at this facility use at least one of these dose optimization techniques: automated exposure control; mA and/or kV adjustment per patient size (includes targeted exams where dose is matched to clinical indication); or iterative reconstruction. COMPARISON: 1. CT head wo con* [id number] 2021-05-12 15:[address] head wo con* [id number] 2020-12-02 19:07 RADIATION DOSE METRICS: Total DLP (mGy-cm): 721.14 FINDINGS: Brain: Normal. No hemorrhage. Unremarkable white matter. No mass effect. Cerebral ventricles: No ventriculomegaly. Paranasal sinuses: Visualized sinuses are unremarkable. No fluid levels. Mastoid air cells: Visualized mastoid air cells are well aerated. Bones/joints: Unremarkable. No acute fracture. Soft tissues: Unremarkable. Other findings: Pituitary lesion probably too small to visualize, not visualized on present study. CT/CT head wo con* [id number] IMPRESSION: No acute abnormality or significant change. Dictated By: Cedric Nguyen MD Signed By: Cedric Nguyen MD Signed Date/Time: 06/10/21421 DD/ 0317 Discharge Plan Discharge Patient Disposition: Xfer Short-Term Hosp Clinical Impression: Epileptic seizure Condition: Stable Referrals: Shima Larson FNP [Primary Care Provider] - Coding Level of Care Code ED Data Communications Technician for Chg Fwd Exam Comprehensive
--- NOTE | 2021-06-10 03:17 | CTR_ITS ---
PROCEDURE INFORMATION: Exam: CT Head Without Contrast Exam date and time: 06/10/2021 3:17 AM Age: 21 years old Clinical indication: Patient HX: Seizure today. History of seizure disorder. History of benign pituitary tumor. TECHNIQUE: Imaging protocol: Computed tomography of the head without contrast. Radiation optimization: All CT scans at this facility use at least one of these dose optimization techniques: automated exposure control; mA and/or kV adjustment per patient size (includes targeted exams where dose is matched to clinical indication); or iterative reconstruction. COMPARISON: 1. CT head wo con* [id number] 2021-05-12 15:[address] head wo con* [id number] 2020-12-02 19:07 RADIATION DOSE METRICS: Total DLP (mGy-cm): 721.14 FINDINGS: Brain: Normal. No hemorrhage. Unremarkable white matter. No mass effect. Cerebral ventricles: No ventriculomegaly. Paranasal sinuses: Visualized sinuses are unremarkable. No fluid levels. Mastoid air cells: Visualized mastoid air cells are well aerated. Bones/joints: Unremarkable. No acute fracture. Soft tissues: Unremarkable. Other findings: Pituitary lesion probably too small to visualize, not visualized on present study. CT/CT head wo con* [id number] IMPRESSION: No acute abnormality or significant change.
[2021-06-10 03:55] VITALS: O2SAT 96
--- NOTE | 2021-06-10 03:56 | PC.NURSE ---
pt refuses most treatment; iv, meds, blood pressure being taken, name band being applied. pt however did consent to scans from fall from seizure.
--- NOTE | 2021-06-10 03:59 | PC.NURSE ---
this nurse called pt mother, who is pt jama, and pt mother stated they would not be able to to come to the ER. 'her tires are bad and its slick out' this nurse got the rest of the triage information and informed mother pt was not being cooperative. mother did not acknowledge to me what I said, she began having a disagreement with her . when asked how pt was supposed to get home, pt mother responded that we would need to 'ready transport' to get him home.
[2021-06-10] MEDS: LORazepam 2 mg/mL INJ 1 mL 1 MG IVP (04:20)
[2021-06-10 04:49] LABS: Anion Gap 32.1 (5-19); Blood Urea Nitrogen 5 mg/dL (6-20); Calcium 9.2 mg/dL (8.5-10.5); Carbon Dioxide 15 mmol/L (22-29); Chloride 99 mmol/L (98-107); Glomerular Filtration Rate 119.8 mL/min (90-130); Glucose 130 mg/dL (65-115); Osmolality Calculated 295 mOsm/kg (285-295); Potassium 3.1 mmol/L (3.5-5.1); Sodium 143 mmol/L (136-145)
[2021-06-10 04:56] LABS: Valproic Acid Level 56.2 ug/mL (50-100)
[2021-06-10 05:07] LABS: Basophils # 0.1 10^3/uL (0.0-0.1); Basophils % 0.7 %; Eosinophils # 0.2 10^3/uL (0.0-0.8); Eosinophils % 2.5 %; Hematocrit 45.4 % (42.0-52.0); Hemoglobin 14.4 g/dL (11.7-16.6); Lymphocytes # 3.4 10^3/uL (0.8-4.8); Lymphocytes % 34.8 %; Mean Corpuscular HGB Conc 31.7 g/dL (30.0-36.0); Mean Corpuscular Hemoglobin 28.7 pg (28.0-34.0); Mean Corpuscular Volume 90.6 fl (80-94); Mean Platelet Volume 9.9 fL (7.4-10.4); Monocytes # 1.5 10^3/uL (0.2-0.9); Monocytes % 15.4 %; Neutrophils % 46.4 %; Nucleated Red Blood Cells % 0 %; Platelet Count 311 10^3/cmm (130-400); Red Blood Count 5.01 10^6/uL (4.1-5.3); Red Cell Distribution Width 12.4 % (12.1-15.1); White Blood Count 9.7 10^3/uL (4.0-10.0)
[2021-06-10 05:08] VITALS: BP 113/64; PULSE 122; RESP 19; O2SAT 94
[2021-06-10] MEDS: valproic acid inj 1,000 MG in sodium chloride 0.9% 50 ML 55 MG IV (05:18)
--- NOTE | 2021-06-10 05:23 | PC.NURSE ---
this nurse called report to [facility] 6th floor.
[2021-06-10 06:38] VITALS: BP 110/61; PULSE 90; RESP 15; O2SAT 91
== END 2021-06-10 07:52 | disposition short-term general hospital (02) ==
PROVIDERS: Emergency Provider Emergency Medicine; PCP Nurse Practitioner Family
DX: G40.909 Epilepsy, unspecified, not intractable, without status epilepticus (principal); Z77.22 Contact with and (suspected) exposure to environmental tobacco smoke (acute) (chronic)
CPT/HCPCS: 70450; 80048; 80164; 85025; 96365; 96375; 99284; J2060

== ENCOUNTER → 2021-06-15 12:29 | Outpatient (BNVA) | payer MEDICAID, SELFPAY | PROVIDERS: PCP Nurse Practitioner Family; Visit Provider Nurse Practitioner Family | DX: Z20.822 Contact with and (suspected) exposure to COVID-19 (principal); Z11.52 Encounter for screening for COVID-19; R50.9 Fever, unspecified; R56.9 Unspecified convulsions; R05.9 Cough, unspecified; J01.00 Acute maxillary sinusitis, unspecified | CPT/HCPCS: 80053; 87635 ==

== ENCOUNTER → 2021-07-09 16:47 | Outpatient (BNVA) | payer MEDICAID, SELFPAY | PROVIDERS: PCP Nurse Practitioner Family; Visit Provider Nurse Practitioner Family | DX: Z20.822 Contact with and (suspected) exposure to COVID-19 (principal); R05.9 Cough, unspecified; J01.00 Acute maxillary sinusitis, unspecified; H91.92 Unspecified hearing loss, left ear; R50.9 Fever, unspecified | CPT/HCPCS: 87635 ==

== ENCOUNTER → 2021-08-28 10:57 | Outpatient (BNVA) | payer MEDICAID, SELFPAY | PROVIDERS: PCP Nurse Practitioner Family; Visit Provider Nurse Practitioner Family | DX: J45.909 Unspecified asthma, uncomplicated (principal); J30.2 Other seasonal allergic rhinitis; F41.9 Anxiety disorder, unspecified; R56.9 Unspecified convulsions | CPT/HCPCS: 87071; 87880 ==

== ENCOUNTER → 2021-11-01 14:42 | Outpatient (BNVA) | payer MEDICAID, SELFPAY | PROVIDERS: PCP Nurse Practitioner Family; Visit Provider Psychiatry & Neurology Neurology | DX: R56.9 Unspecified convulsions (principal) | CPT/HCPCS: 80164 ==

== ENCOUNTER → 2021-11-06 15:13 | Outpatient (BNVA) | payer MEDICAID, SELFPAY | PROVIDERS: PCP Nurse Practitioner Family; Visit Provider Nurse Practitioner Family | DX: R07.81 Pleurodynia (principal) | CPT/HCPCS: 71046; 80053; 80164 ==

== ENCOUNTER → 2021-11-07 17:00 | Outpatient (BNVA) | payer MEDICAID, SELFPAY | PROVIDERS: PCP Nurse Practitioner Family; Visit Provider Nurse Practitioner Family | DX: R73.9 Hyperglycemia, unspecified (principal) | CPT/HCPCS: 83036 ==

== ENCOUNTER → 2021-11-12 09:03 | Outpatient (BNVA) | payer MEDICAID, SELFPAY | PROVIDERS: PCP Nurse Practitioner Family; Visit Provider Surgery | DX: K21.9 Gastro-esophageal reflux disease without esophagitis (principal); R13.10 Dysphagia, unspecified | CPT/HCPCS: 99203 ==

== ENCOUNTER 2021-11-26 11:17 | Outpatient (CLI) | payer MEDICAID, SELFPAY ==
--- NOTE | 2021-11-26 11:28 | FL_ITS ---
WS: [id number] Exam: FL barium swallow [id number] Date/Time of Exam: 11/26/2021 11:31 AM Reason For Exam: DYSPHAGIA Fluoroscopy time: 1min [phone] minutes # of spot films: 7 The study is significantly limited due to the patient's inability to ingest the usual amount of carin um for the test. The visualized esophagus appears to be patent. No obvious stricture or mass. Barium spills freely int o the stomach. FL/FL barium swallow [id number] IMPRESSION: 1. Significantly limited exam due to the patient's inability to ingest the usua l volume of barium for the study. 2. The visualized esophagus appears to be patent without evidence of mass or st ricture. No aspiration was observed.
== END 2021-11-26 11:18 | disposition home or self-care (01) ==
LOC: RAD 11:21
PROVIDERS: PCP Nurse Practitioner Family; Visit Provider Specialist
DX: R13.10 Dysphagia, unspecified (principal)
CPT/HCPCS: 74220

== ENCOUNTER 2022-01-18 17:44 | Emergency (ER) | payer MEDICAID, SELFPAY ==
[2022-01-18 17:49] VITALS: BP 110/65; PULSE 113; RESP 16; TEMP 37.7; O2SAT 95; BMI 26.6
--- NOTE | 2022-01-18 17:57 | ECG_ITS ---
[facility] Test Date: 2022-01-18 Pat Name: Hussein Man Department: Room: Gender: Male Cloth Coverer: : 2000 Requested By: Trinh Jade Order Number: [id number] Elver MD: Sade Morgan M.D. Measurements Intervals [place] Rate: 109 P: 15 [place]: 129 QRS: 19 QRSD: 76 T: 18 QT: 290 QTc: 391 Interpretive Statements SINUS TACHYCARDIA ABNORMAL RHYTHM ECG Compared to ECG 09/23/2017 15:14:54 Sinus rhythm no longer present Electronically Signed On 01-18-2022 18:30:17 CDT by Sade Morgan M.D. [id number]
--- NOTE | 2022-01-18 18:02 | ED_ITS ---
HPI - Headache General: Chief Complaint: Headache Stated Complaint: ear pain, headache, fever Time Seen by Provider: 01/18/22 18:02 Limitations: physical limitation History of Present Illness: Mr. Man is a 21-year-old gentleman with significant past medical history of nonverbal autism who presents to the emergency department accompanied by mother due to headache, dizziness, nausea and vomiting since this morning. He had 1 episode of emesis around noon. Apparently he has been complaining of headache. Does not frequently get headaches. T-max at home 103 ?F. History otherwise limited by baseline medical condition. Onset (ago): hour(s) Review of Systems General: Reports: ROS unobtainable due to medical condition PFSH ED PFSH: Medical History Acute cystitis Asthma Benign tumor of pituitary gland Constipation, chronic Psychiatric care Seasonal allergies Seizures Surgical History History of tonsillectomy and adenoidectomy Hx of hernia repair Family History Father Heart disease Social History Smoking and tobacco status: current every day smoker smokeless tobacco Smokeless tobacco user: chewing tobacco Second hand smoke exposure: Yes Alcohol intake: never Caregiver/support person: No Lives independently: No Household members: family Marital status: Single service: No Current occupational status: disabled History of recent travel: No Current gender identity: Male Physical Exam Const: COMMON NORMALS: alert GENERAL APPEARANCE: cooperative and well developed HENMT: COMMON NORMALS: normocephalic, atraumatic, external ears normal, TM's normal bilaterally and Normal external nose present HEAD & SCALP: normocephalic and atraumatic NOSE: Normal external nose present EXTERNAL EAR: Yes external ears normal TYMPANIC MEMBRANE: TM's normal bilaterally Eye: COMMON NORMALS: conjunctivae normal CONJUNCTIVA: Yes conjunctivae normal SCLERA: sclerae normal Neck/C-Spine: COMMON NORMALS: supple GENERAL: Yes trachea midline Resp: COMMON NORMALS: normal respiratory effort and clear to auscultation bilaterally AUSCULTATION: clear to auscultation bilaterally Cardio: COMMON NORMALS: regular rate and regular rhythm RATE: regular rate RHYTHM: regular rhythm GI: COMMON NORMALS: Soft to palpation PALPATION: Yes Soft to palpation and No Tenderness to palpation present (GI) Extremity: GENERAL: Yes normal exam except as noted and No edema Neuro: COMMON NORMALS: moves all extremities SENSORIUM/ORIENTATION: Yes alert Procedures Lumbar Puncture Time Out Performed: Yes Patient Position: left lateral decubitus Skin Prep: Povidone-Iodine 1% Local Anesthetic: lidocaine 1% and with epi Amount of anesthesia used (mL): 10 Interspace Used: L4-L5 Complications: unable to obtain CSF Course ED course: - Patient was seen and evaluated by me at bedside - Patient placed on cardiac monitors, IV access obtained - Initial evaluation notable for exam as above. - Labs and xrays personally interpreted by me -Headache treatment and symptom treatment ordered - Labs notable for no leukocytosis, normal hemoglobin. Metabolic panel with mild evidence of dehydration and hypokalemia, replenishment ordered. CRP Mildly elevated however procalcitonin negative. No evidence of urinary tract infection. Viral studies negative. - Imaging notable for negative head CT for acute intracranial pathology. Chest x-ray without bibasilar opacities, no pneumothorax. CT chest negative for lobar consolidation/pneumonia. central adenopathy which is most likely reactive. -Patient subsequently had seizure activity and antiseizure medications ordered. -I discussed ED evaluation at this point with the patient's mother and father. Given uncertain etiology of symptoms at limitations in evaluation given patient's baseline mental status they were consented for lumbar puncture which was attempted but unfortunately not successful. - Upon serial reexamination after treatment the patient was improved and he returned to baseline - Based on patient history, evaluation, and testing as interpreted the most likely cause of the patient's condition is fever and headache of uncertain etiology. - The results of ED evaluation were discussed with the patient's parent including disposition options. I offered admission for further management however mother feels that patient is back to baseline and is comfortable with ED evaluation at this point being low risk for bacterial infection. I discussed prescriptions and/or symptomatic cares (if applicable) including appropriate and responsible use, followup plan, and return precautions. The patient verbalized understanding and felt safe for discharge. - Patient discharged in satisfactory condition. Note: Click bubbles or prepopulated warner in note writing are used for assistance with data collection and billing and are inherently more limited than narrative and other text portions of this note. Please use narrative for additional clinical history and defer to narrative/free test for any case of contradictory information. If information appears in only free text or click bubble it should be considered present or absent as reported. Please contact note marketing copywriter for clarifications of clinical information or contradictory information. MDM is a brief summary, contradictory or erroneous seeming information should be clarified and full note should be reviewed. Vital Signs: Vital signs: Vital Signs Temperature 98.5 F 01/19/22 00:15 Pulse Rate 80 01/19/22 02:41 Respiratory Rate 15 01/19/22 02:41 Blood Pressure 107/77 01/19/22 02:41 Pulse Oximetry 98 01/19/22 02:41 Oxygen Delivery Me thod 01/18/22 23:30 Oxygen Flow Rate 2 01/18/22 20:30 MDM - Headache Medical Decision Making 21-year-old male who is nonverbal with history of seizure disorder presenting with generalized illness including fevers. Patient did experience seizure while in the emergency department requiring multiple doses of medication. Overall no clear etiology identified for source of infection. I did attempt lumbar puncture however this was not successful. There is no leukocytosis and procalcitonin is negative however unfortunately viral panel was also negative. I discussed possible disposition options with the patient's parents. Overall very challenging situation. I explained that the safest option would be to admit the patient for further evaluation however the likelihood of bacterial infection appears to be low. Patient returned to baseline after seizure and parents were comfortable with discharge and continued close monitoring. Strict return precautions given. Medical Records I reviewed the patient's medical records. Lab Data I reviewed the patient's lab results. : 01/18/22 18:41 01/18/22 18:41 Radiology Impressions Chest X-Ray 01/18/22 18:19 IMPRESSION: 1. Bilateral hilar to lower lobe atelectasis versus minimal infiltrate. 2. Cardiomegaly. Head CT 01/18/22 19:58 IMPRESSION: 1. No CT evidence of acute intracranial pathology. 2. Additional findings, as above. Chest CT 01/18/22 22:11 IMPRESSION: 1. No pulmonary embolism or pneumonia. 2. Bibasilar atelectasis. 3. Central adenopathy is most likely reactive. Laboratory Results WBC 6.6 10^3/uL (4.0-10.0) 01/18/22 18:41 RBC 3.74 10^6/uL (4.1-5.3) L 01/18/22 18:41 Hgb 11.8 g/dL (11.7-16.6) 01/18/22 18:41 Hct 36.8 % (42.0-52.0) L 01/18/22 18:41 MCV 98.4 fl (80-94) H 01/18/22 18:41 MCH 31.6 pg (28.0-34.0) 01/18/22 18:41 MCHC 32.1 g/dL (30.0-36.0) 01/18/22 18:41 RDW 13.5 % (12.1-15.1) 01/18/22 18:41 Plt Count 127 10^3/cmm (130-400) L 01/18/22 18:41 MPV 9.6 fL (7.4-10.4) 01/18/22 18:41 Neut % (Auto) 66.0 % 01/18/22 18:41 Lymph % (Auto) 18.7 % 01/18/22 18:41 [place] % (Auto) 13.9 % 01/18/22 18:41 Eos % (Auto) 0.2 % 01/18/22 18:41 Baso % (Auto) 0.3 % 01/18/22 18:41 Neut # (Auto) 4.38 10^3/uL (1.8-7.7) 01/18/22 18:41 Lymph # (Auto) 1.2 10^3/uL (0.8-4.8) 01/18/22 18:41 [place] # (Auto) 0.9 10^3/uL (0.2-0.9) 01/18/22 18:41 Eos # (Auto) 0.0 10^3/uL (0.0-0.8) 01/18/22 18:41 Baso # (Auto) 0.0 10^3/uL (0.0-0.1) 01/18/22 18:41 Nucleated RBC % (auto) 0 % 01/18/22 18:41 Nucleated RBCs # 0.0 /100WBC 01/18/22 18:41 Specimen Type Arterial 01/18/22 19:54 Sample Site Radial, right 01/18/22 19:54 ABG pH 7.39 (7.35-7.45) 01/18/22 19:54 ABG pCO2 39.5 mmHg (35-45) 01/18/22 19:54 ABG pO2 195.0 mmHg (80.0-100.0) H 01/18/22 19:54 ABG HCO3 24.1 mmol/L (22-26) 01/18/22 19:54 ABG O2 Saturation 98.2 01/18/22 19:54 ABG Base Excess -0.7 mmol/L (-2.0-2.0) 01/18/22 19:54 Filiberto Test Pos 01/18/22 19:54 Hematocrit 34.5 % (42-52) L 01/18/22 19:54 Hgb O2 Saturation 97.1 % (95-100) 01/18/22 19:54 Carboxyhemoglobin 0.0 %THgb (0.4-20.1) L 01/18/22 19:54 Methemoglobin 1.1 % (0.4-1.5) 01/18/22 19:54 Total Hemoglobin 11.3 g/dL (14-18) L 01/18/22 19:54 Sodium 136.0 mmol/L (131-143) 01/18/22 19:54 Potassium 4.0 mmol/L (3.5-5.0) 01/18/22 19:54 Glucose 75.0 mg/dL (70-115) 01/18/22 19:54 Ionized Calcium 1.1 mmol/L (1.1-1.4) 01/18/22 19:54 O2 Delivery Device Nrb 01/18/22 19:54 O2 Liters/Min 10.0 % 01/18/22 19:54 Landscaping Supervisor ID [place] 01/18/22 19:54 Sodium 133 mmol/L (136-145) L 01/18/22 18:41 Potassium 3.0 mmol/L (3.5-5.1) L 01/18/22 18:41 Chloride 95 mmol/L (98-107) L 01/18/22 18:41 Carbon Dioxide 23 mmol/L (22-29) 01/18/22 18:41 Anion Gap 18.0 (5-19) 01/18/22 18:41 BUN 12 mg/dL (6-20) 01/18/22 18:41 Creatinine 0.7 mg/dL (0.7-1.2) 01/18/22 18:41 GFR Calculation 139.8 mL/min (90-130) H 01/18/22 18:41 Glucose 90 mg/dL (65-115) 01/18/22 18:41 Calculated Osmolality 275 mOsm/kg (285-295) L 01/18/22 18:41 Lactic Acid 1.3 mmol/L (0.5-2.2) 01/18/22 18:41 Calcium 8.3 mg/dL (8.5-10.5) L 01/18/22 18:41 Total Bilirubin 0.7 mg/dL (0.15-1.2) 01/18/22 18:41 AST 47 U/L (0-40) H 01/18/22 18:41 ALT 32 U/L (0-41) 01/18/22 18:41 Alkaline Phosphatase 57 IU/L (40-130) 01/18/22 18:41 C-Reactive Protein 38.6 mg/L (0.0-4.9) H 01/18/22 18:41 Total Protein 5.9 g/dL (6.6-8.7) L 01/18/22 18:41 Albumin 3.7 g/dL (3.5-5.2) 01/18/22 18:41 Globulin 2.2 g/dL (1.3-4.6) 01/18/22 18:41 Procalcitonin 0.12 ng/mL (0-0.5) 01/18/22 18:41 TSH 6.53 uIU/mL (0.27-4.20) H 01/18/22 18:41 Free T4 0.71 ng/dL (0.82-1.77) L 01/18/22 18:41 Urine Color Yellow (Yellow) 01/18/22 19:20 Urine Appearance Clear (CLEAR) 01/18/22 19:20 Urine pH 6 (5-7) 01/18/22 19:20 Ur Specific [place] 1.005 (1.005-1.030) 01/18/22 19:20 Urine Protein Neg (Negative) 01/18/22 19: Urine Glucose (UA) Norm (Normal) 01/18/22 19:20 Urine Ketones Negative (Negative) 01/18/22 19:20 Urine Blood 2+ (Negative) H 01/18/22 19:20 Urine Nitrate Negative (Negative) 01/18/22 19:20 Urine Bilirubin Neg (Negative) 01/18/22 19:20 Urine Urobilinogen Neg mg/dL (Negative) 01/18/22 19:20 Ur Leukocyte Esterase Negative (Negative) 01/18/22 19:20 Urine RBC 0-4 /hpf (0-2) H 01/18/22 19:20 Urine WBC 0-4 /hpf (0-5) H 01/18/22 19:20 Ur Squamous Epith Cells 0-4 /hpf (0-5) H 01/18/22 19:20 Amorphous Sediment Not Reportable 01/18/22 19:20 Urine Bacteria None /hpf (NONE) 01/18/22 19:20 Urine Mucus Trace /hpf 01/18/22 19:20 Nasal Influ A H1 2009 PCR Not detected (NOT DETECT) 01/18/22 18:20 RSV Nasal Swab Cancelled 01/18/22 18:20 RSV Nasal Swab Int Cntl Cancelled 01/18/22 18:20 Adenovirus (PCR) Cancelled 01/18/22 18:20 Adenovirus (PCR) Not detected (NOT DETECT) 01/18/22 18:20 C. pneumoniae DNA (PCR) Not detected (NOT DETECT) 01/18/22 18:20 Coronavirus 229E (PCR) Not detected (NOT DETECT) 01/18/22 18:20 Human Metapneumovir PCR Cancelled 01/18/22 18:20 Human Metapneumovir PCR Not detected (NOT DETECT) 01/18/22 18:20 Influenza A (RT-PCR) Cancelled 01/18/22 18:20 Influenza A (H1) PCR Cancelled 01/18/22 18:20 Influenza A (H1) PCR Not detected (NOT DETECT) 01/18/22 18:20 Influenza A (H3) PCR Cancelled 01/18/22 18:20 Influenza A (H3) PCR Not detected (NOT DETECT) 01/18/22 18:20 Influenza Type A (PCR) Not detected (NOT DETECT) 01/18/22 18:20 Influenza B (RT-PCR) Cancelled 01/18/22 18:20 Influenza Type B (PCR) Not detected (NOT DETECT) 01/18/22 18:20 M. pneumoniae (PCR) Not detected (NOT DETECT) 01/18/22 18:20 Parainfluenzae Type 1 Cancelled 01/18/22 18:20 Parainfluenza 1 (PCR) Not detected (NOT DETECT) 01/18/22 18:20 Parainfluenzae Type 2 Cancelled 01/18/22 18:20 Parainfluenza 2 (PCR) Not detected (NOT DETECT) 01/18/22 18:20 Parainfluenzae Type 3 Cancelled 01/18/22 18:20 Parainfluenza 3 (PCR) Not detected (NOT DETECT) 01/18/22 18:20 Parainfluenza 4 (PCR) Not detected (NOT DETECT) 01/18/22 18:20 RSV Ab Comment Cancelled 01/18/22 18:20 RSV Type A (PCR) Not detected (NOT DETECT) 01/18/22 18:20 RSV Type B (PCR) Not detected (NOT DETECT) 01/18/22 18:20 Rhinovirus (PCR) Cancelled 01/18/22 18:20 Entero/Rhino (PCR) Not detected (NOT DETECT) 01/18/22 18:20 SARS-CoV-2 (PCR) Not detected (NOT DETECT) 01/18/22 18:20 Critical Care Time Critical Care Time: Critical Care Time: Yes Total Critical Care Time: 80 Attestation: Due to a high probability of clinically significant, possibly life threatening deterioration, the patient required my highest level of attention and preparedness to intervene emergently and I personally spent this critical care time directly and personally managing the patient. This critical care time inclu ded obtaining a history; examining the patient; pulse oximetry; ordering and review of laboratory and imaging studies; arranging urgent treatment with development of a management plan; evaluation of patient's response to treatment; frequent reassessment; and, discussions with other providers as applicable. It was exclusive of separately billable procedures. Primary symptom involved is neuro Discharge Plan Discharge Patient Disposition: Home Clinical Impression: Headache, Fever, Seizure Condition: Stable Prescriptions: New diazepam 10 mg/spray (0.1 mL) spray,non-aerosol 10 mg intranasal Q15M PRN (Reason: seizure) Qty: 2 0RF Rx Instructions: seizure longer than 5 min or 2 seizures without return to baseline No Action montelukast 10 mg tablet 10 mg PO .HS Qty: 30 11RF levocetirizine [Xyzal] 5 mg tablet 5 mg PO DAILY 90 Days Qty: 90 1RF fluticasone propion-salmeterol [Advair Diskus] 100-50 mcg/dose blister with device 1 inh INHALATION BID Qty: 60 2RF Combivent Respimat 20-100 mcg/actuation mist 1 puff INHALATION Q4H PRN (Reason: wheezing) Qty: 4 3RF pantoprazole [Protonix] 40 mg tablet,delayed release (DR/EC) 40 mg PO DAILY 90 Days Qty: 90 0RF (DME) nebulizers Misc See Rx Instructions .Route Qty: 1 0RF Rx Instructions: 1 nebulizer with all required supplies As directed ipratropium-albuterol 0.5 mg-3 mg(2.5 mg base)/3 mL solution for nebulization 3 ml inhalation Q4H PRN (Reason: wheezing) Qty: 180 6RF albuterol sulfate [ProAir HFA] 90 mcg/actuation HFA aerosol inhaler 1 inh inhalation QID PRN (Reason: Shortness Of Breath) fluticasone propionate [Flonase Allergy Relief] 50 mcg/actuation spray,suspens ion 2 spray INTRANASAL DAILY Qty: 15.8 11RF Rx Instructions: administer into each nostril citalopram [Celexa] 40 mg tablet 40 mg PO DAILY Qty: 30 4RF cetirizine 10 mg Tablet 10 mg PO DAILY divalproex [Depakote] 500 mg tablet,delayed release (DR/EC) 500 mg PO BID Discharge Orders: Discharge ED (Routine); Ordered 01/19/22 Ordered By: Migue Dixon Referrals: Shima Larson, FORESTRY ADVISER [Primary Care Provider] - Discharge Diet: Usual diet Discharge Activity: Increase activity as tolerated Patient Instructions: Fever in Adults (ED), Recurrent Seizures in Adults (ED), General Headache (ED) Activity Restrictions/Additional Instructions: Thank you for visiting the emergency department. You were seen and evaluated for headache and fever. The exact cause of the symptoms is unclear as discussed. You had a seizure while in the emergency department. Please continue your usual medication regimen. You may use Tylenol and/or ibuprofen for fevers and pain however please do not exceed the daily recommended dosage. Please follow-up with your primary care provider. Please return to the emergency department for worsening symptoms or anything else that you are concerned about a feel needs emergency department evaluation. Coding Level of Care Code ED Floor Installer for Marcus Cobos Exam Comprehensive
--- NOTE | 2022-01-18 18:19 | XRR_ITS ---
PROCEDURE INFORMATION: Exam: XR Chest Exam date and time: 01/18/2022 6:30 PM Age: 21 years old Clinical indication: Fever TECHNIQUE: Imaging protocol: Radiologic exam of the chest. Views: 1 view. COMPARISON: CR XR chest 2V* [id number] 11/06/2021 3:18 PM FINDINGS: Lungs: Bilateral hilar to lower lobe atelectasis versus minimal infiltrate. Pleural spaces: Unremarkable. No pleural effusion. No pneumothorax. Heart/Mediastinum: Cardiomegaly. Bones/joints: Unremarkable. XR/XR chest 1V portable [id number] IMPRESSION: 1. Bilateral hilar to lower lobe atelectasis versus minimal infiltrate. 2. Cardiomegaly.
[2022-01-18 18:57] LABS: Basophils % 0.3 %; Eosinophils % 0.2 %; Hematocrit 36.8 % (42.0-52.0); Hemoglobin 11.8 g/dL (11.7-16.6); Lymphocytes # 1.2 10^3/uL (0.8-4.8); Lymphocytes % 18.7 %; Mean Corpuscular HGB Conc 32.1 g/dL (30.0-36.0); Mean Corpuscular Hemoglobin 31.6 pg (28.0-34.0); Mean Corpuscular Volume 98.4 fl (80-94); Mean Platelet Volume 9.6 fL (7.4-10.4); Monocytes # 0.9 10^3/uL (0.2-0.9); Monocytes % 13.9 %; Neutrophils # 4.38 10^3/uL (1.8-7.7); Nucleated Red Blood Cells % 0 %; Platelet Count 127 10^3/cmm (130-400); Red Blood Count 3.74 10^6/uL (4.1-5.3); Red Cell Distribution Width 13.5 % (12.1-15.1); White Blood Count 6.6 10^3/uL (4.0-10.0)
[2022-01-18] MEDS: acetaminophen 1,000 MG/100 ML PIGGYBACK 400 MG IV (19:00)
[2022-01-18 19:09] LABS: Lactic Sepsis W/Reflex 1.3 mmol/L (0.5-2.2)
[2022-01-18 19:22] LABS: Procalcitonin 0.12 ng/mL (0-0.5); Thyroid Stimulating Hormone 6.53 uIU/mL (0.27-4.20)
[2022-01-18] MEDS: diphenhydrAMINE 50 mg/mL SDV 1mL 25 MG IVP (19:25)
[2022-01-18] MEDS: ondansetron 2 mg/ML SDV 2 mL 4 MG IVP (19:25)
[2022-01-18] MEDS: metoclopramide 5 mg/mL SDV 2 mL 10 MG IVP (19:25)
[2022-01-18] MEDS: lactated ringers 1,000 ML 999 ML IV (19:28)
[2022-01-18 19:33] LABS: Alanine Aminotransferase 32 U/L (0-41); Albumin Level 3.7 g/dL (3.5-5.2); Alkaline Phosphatase 57 IU/L (40-130); Aspartate Amino Transferase 47 U/L (0-40); Blood Urea Nitrogen 12 mg/dL (6-20); C Reactive Protein 38.6 mg/L (0.0-4.9); Calcium 8.3 mg/dL (8.5-10.5); Carbon Dioxide 23 mmol/L (22-29); Chloride 95 mmol/L (98-107); Globulin 2.2 g/dL (1.3-4.6); Glomerular Filtration Rate 139.8 mL/min (90-130); Glucose 90 mg/dL (65-115); Osmolality Calculated 275 mOsm/kg (285-295); Sodium 133 mmol/L (136-145); Total Bilirubin 0.7 mg/dL (0.15-1.2); Total Protein 5.9 g/dL (6.6-8.7)
[2022-01-18] MEDS: midazolam 1 mg/mL INJ 2 mL 2 MG IVP ×3 (19:33→19:45)
[2022-01-18] MEDS: valproic acid 500 mg/5 mL SDV 1451.5 MG IV (19:49)
--- NOTE | 2022-01-18 19:58 | CTR_ITS ---
PROCEDURE INFORMATION: Exam: CT Head Without Contrast Exam date and time: 01/18/2022 8:27 PM Age: 21 years old Clinical indication: Patient HX: Fever; Weakness; Seizure; Limited HX due to PT condition; Scanned 2x due to PT movement; Additional info: Headache, fever, AMS TECHNIQUE: Imaging protocol: Computed tomography of the head without contrast. Axial, coronal and sagittal reformatted images were created and reviewed. Radiation optimization: All CT scans at this facility use at least one of these dose optimization techniques: automated exposure control; mA and/or kV adjustment per patient size (includes targeted exams where dose is matched to clinical indication); or iterative reconstruction. COMPARISON: CT head wo con* [id number] 06/10/2021 3:28 AM RADIATION DOSE METRICS: Total DLP (mGy-cm): 1168 FINDINGS: Brain: No CT evidence of acute intracranial hemorrhage or acute territorial infarction. No significant mass effect or midline shift. Basal cisterns patent. Cerebral ventricles: Prominence of the cortical sulci, cisterns and ventricular system, consistent with cerebral and cerebellar volume loss. Paranasal sinuses: Unremarkable. No fluid levels. Mastoid air cells: Grossly unremarkable. Bones/joints: No acute osseous abnormality. Soft tissues: Grossly unremarkable. CT/CT head wo con* [id number] IMPRESSION: 1. No CT evidence of acute intracranial pathology. 2. Additional findings, as above.
[2022-01-18 20:03] VITALS: BP 110/54; PULSE 116; RESP 20; O2SAT 100
[2022-01-18 20:07] LABS: ABG PCO2 39.5 mmHg (35-45); ABG PH Result 7.39 (7.35-7.45); Arterial Blood Gas Hematocrit 34.5 % (42-52); Base Excess ABG -0.7 mmol/L (-2.0-2.0); Blood Gas Allen Test Pos; Blood Gas Operator Identificat MONRO; Blood Gas Sample Site Radial, right; Blood Gas Sample Type Arterial; HCO3 ABG 24.1 mmol/L (22-26); HGB O2 Sat 97.1 % (95-100); Ionized Calcium Level - ABG 1.1 mmol/L (1.1-1.4); Methemoglobin 1.1 % (0.4-1.5); Oxygen Device NRB; Oxygen Saturation ABG 98.2; Total Hemoglobin 11.3 g/dL (14-18)
[2022-01-18] MEDS: lidocaine 1% 5 ML in potassium chloride premix 100 ML 25 ML IV (20:14)
[2022-01-18 20:16] LABS: Urine Appearance Clear (CLEAR); Urine Color Yellow (Yellow)
[2022-01-18 20:17] LABS: Add Urine Microscopic? YES; Bilirubin Urine Neg (Negative); Blood Urine 2+ (Negative); Glucose Urine UA Norm (Normal); Ketones Urine Negative (Negative); Leukocyte Esterase Urine Negative (Negative); Nitrate Urine Negative (Negative); Protein Urine Neg (Negative); Specific Gravity, Urine 1.005 (1.005-1.030); Urobilinogen Urine Neg (Negative); pH Urine 6 (5-7)
[2022-01-18 20:20] LABS: Add Urine Culture? No; Mucus Urine TRACE /hpf; RBC Urine 0-4 /hpf (0-2); Squamous Epithelial Cell Urine 0-4 /hpf (0-5); WBC Urine 0-4 /hpf (0-5)
[2022-01-18 20:30] VITALS: BP 100/57; PULSE 101; RESP 21; O2SAT 98
[2022-01-18 20:51] LABS: Free T4 Free Thyroxine 0.71 ng/dL (0.82-1.77)
[2022-01-18 21:07] VITALS: BP 91/51; PULSE 95; RESP 20; TEMP 36.9; O2SAT 98
[2022-01-18 21:26] LABS: Adenovirus Not Detected (NOT DETECT); Chlamydia Pneumoniae Not Detected (NOT DETECT); Coronavirus 229E,HKU1,NL63,OC4 Not Detected (NOT DETECT); Human Metapneumovirus Not Detected (NOT DETECT); Human Rhinovirus/Enterovirus Not Detected (NOT DETECT); Influenza A Not Detected (NOT DETECT); Influenza A H1 Not Detected (NOT DETECT); Influenza A H1-2009 Not Detected (NOT DETECT); Influenza A H3 Not Detected (NOT DETECT); Influenza B Not Detected (NOT DETECT); Mycoplasma Pneumoniae Not Detected (NOT DETECT); Parainfluenza Virus Type 1 Not Detected (NOT DETECT); Parainfluenza Virus Type 2 Not Detected (NOT DETECT); Parainfluenza Virus Type 3 Not Detected (NOT DETECT); Parainfluenza Virus Type 4 Not Detected (NOT DETECT); Respiratory Syncytial Virus A Not Detected (NOT DETECT); Respiratory Syncytial Virus B Not Detected (NOT DETECT); SARS-COV-2 Not Detected (NOT DETECT)
--- NOTE | 2022-01-18 22:11 | CTR_ITS ---
PROCEDURE INFORMATION: Exam: CT Chest With Contrast; Diagnostic Exam date and time: 01/18/2022 10:27 PM Age: 21 years old Clinical indication: Abnormal findings; Abnormal radiologic exam of lung or chest; Patient HX: Possible pneumonia on cxr TECHNIQUE: Imaging protocol: Diagnostic computed tomography of the chest with contrast. Radiation optimization: All CT scans at this facility use at least one of these dose optimization techniques: automated exposure control; mA and/or kV adjustment per patient size (includes targeted exams where dose is matched to clinical indication); or iterative reconstruction. Contrast material: OMNI 350; Contrast volume: 80 ml; Contrast route: INTRAVENOUS (IV); COMPARISON: CT angio chest PE protcl [id number] 12/02/2020 9:43 PM RADIATION DOSE METRICS: Total DLP (mGy-cm): 313.36 FINDINGS: Lungs: There is bibasilar dependent atelectasis. No definite pneumonia. No pulmonary mass. Pleural spaces: Unremarkable. No pneumothorax. No pleural effusion. Heart: Unremarkable. No cardiomegaly. No pericardial effusion. Lymph nodes: There is bilateral hilar adenopathy measuring up to 1.9 cm on the right and 1.4 cm on the left. A paratracheal node measures 1.5 cm. A prevascular node measures 1.7 cm. These are most likely reactive. Vasculature: Unremarkable. No aortic aneurysm. Liver: The visualized portions of the liver and spleen are unremarkable. Bones/joints: Unremarkable. No acute fracture. Soft tissues: Unremarkable. CT/CT chest w con* [id number] IMPRESSION: 1. No pulmonary embolism or pneumonia. 2. Bibasilar atelectasis. 3. Central adenopathy is most likely reactive.
[2022-01-18] MEDS: iohexol 350 mg/mL 100 mL Btl IV (22:35)
[2022-01-18] MEDS: sodium chloride 0.9% 1,000 ML 999 ML IV (23:00)
[2022-01-18 23:30] VITALS: BP 105/80; PULSE 95; O2SAT 92
[2022-01-18] MEDS: midazolam 1 mg/mL INJ 2 mL 2 MG (23:34)
[2022-01-19 00:15] VITALS: TEMP 36.9
[2022-01-19 01:00] VITALS: BP 101/59; PULSE 86; RESP 14; O2SAT 98
[2022-01-19 02:41] VITALS: BP 107/77; PULSE 80; RESP 15; O2SAT 98
== END 2022-01-19 02:30 | disposition home or self-care (01) ==
PROVIDERS: Emergency Provider Emergency Medicine; PCP Nurse Practitioner Family
DX: R51.9 Headache, unspecified (principal); R56.9 Unspecified convulsions; R50.9 Fever, unspecified; F17.220 Nicotine dependence, chewing tobacco, uncomplicated; Z20.822 Contact with and (suspected) exposure to COVID-19
CPT/HCPCS: 36600; 62270; 70450; 71045; 71260; 80051; 80053; 81001; 82330; 82805; 83605; 84145; 84439; 84443; 85025; 86140; 87040; 87486; 87581; 87633; 93005; 96365; 96366; 96367; 96375; 99285; J1200; J2250; J2405; J2765; J3475; J3480; J7030; Q9967

== ENCOUNTER 2022-02-19 07:47 | Outpatient (CLI) | payer MEDICAID, SELFPAY ==
--- NOTE | 2022-02-19 07:57 | CT_ITS ---
WS: [id number] CT NECK WITH CONTRAST HISTORY: DYSPHAGIA TECHNIQUE: Contiguous 5 mm axial images are performed through the neck with intravenous contrast. Sag ittal and coronal reformats are also submitted. All CT scans at [facility] use at least one o f these dose optimization techniques: automated exposure control; mA and/or kV adjustment per patient size (includes targeted exams where dose is matched to clinical indication); or iterative reconstruc tion. CONTRAST: CONTRAST: Omnipaque 350; 95 mL IV. DLP: 231.37 mGy.cm COMPARISON: None available. Nasopharynx, oropharynx, hypopharynx and larynx are unremarkable. No soft tissue masses or abnormal e nhancement. Torus tubarius and fossa of Rosenmuller and parapharyngeal fat are normal. No significant lymphadenopathy is identified. Thyroid gland and salivary glands are normally enhancing with no masses. No osseous abnormalities. Visualized portions of the skull base demonstrate no abnormalities. Orbits and globes are within norm al limits. No soft tissue masses. Visualized paranasal sinuses and mastoid air cells are normal. Lung apices are clear. CT/CT neck w con* [id number] IMPRESSION: Unremarkable neck CT.
[2022-02-19] MEDS: iohexol 350 mg/mL 100 mL Btl IV (08:26)
== END 2022-02-19 07:48 | disposition home or self-care (01) ==
LOC: RAD 07:48
PROVIDERS: PCP Nurse Practitioner Family; Visit Provider Specialist
DX: R13.10 Dysphagia, unspecified (principal)
CPT/HCPCS: 70491

== ENCOUNTER → 2022-04-16 14:37 | Outpatient (BNVA) | payer MEDICAID, SELFPAY | PROVIDERS: PCP Nurse Practitioner Family; Visit Provider Nurse Practitioner Family | DX: R25.2 Cramp and spasm (principal); R73.9 Hyperglycemia, unspecified | CPT/HCPCS: 80053; 80061; 82607; 83036; 83735; 84443; 85025 ==

== ENCOUNTER → 2022-05-08 09:35 | Outpatient (BNVA) | payer MEDICAID, SELFPAY | PROVIDERS: PCP Nurse Practitioner Family; Visit Provider Podiatrist Foot & Ankle Surgery | DX: M20.41 Other hammer toe(s) (acquired), right foot (principal); M20.42 Other hammer toe(s) (acquired), left foot; M21.071 Valgus deformity, not elsewhere classified, right ankle | CPT/HCPCS: 73630; 99204 ==

== ENCOUNTER 2022-07-04 15:25 | Outpatient (CLI) | payer MEDICAID, SELFPAY ==
--- NOTE | 2022-07-04 15:45 | US_ITS ---
WS: [id number] THYROID ULTRASOUND HISTORY: E03.9 - Hypothyroidism, unspecified COMPARISON: None available. Right lobe: 1.5 cm x 1.9 cm x 4.4 cm (w x ap x l). Volume: 6.4 cm3. Normal size and echotexture. No significant are dominant nodules are present. Left lobe: 1.3 cm x 1.7 cm x 3.8 cm (w x ap x l). Volume: 4.6 cm3. Normal size and echotexture. No significant or dominant nodules are present. Isthmus: 0.3 cm. US/US thyroid [id number] IMPRESSION: Normal thyroid ultrasound.
== END 2022-07-04 15:26 | disposition home or self-care (01) ==
LOC: RAD 15:25
PROVIDERS: PCP Nurse Practitioner Family; Visit Provider Nurse Practitioner Family
DX: E03.9 Hypothyroidism, unspecified (principal)
CPT/HCPCS: 76536

== ENCOUNTER → 2022-07-12 15:49 | Outpatient (BNVA) | payer MEDICAID, SELFPAY | PROVIDERS: PCP Nurse Practitioner Family; Visit Provider Nurse Practitioner Family | DX: R39.9 Unspecified symptoms and signs involving the genitourinary system (principal); N39.0 Urinary tract infection, site not specified; E03.9 Hypothyroidism, unspecified | CPT/HCPCS: 81000 ==

== ENCOUNTER → 2022-07-23 13:58 | Outpatient (BNVA) | payer MEDICAID, SELFPAY | PROVIDERS: PCP Nurse Practitioner Family; Visit Provider Nurse Practitioner Family | DX: R30.0 Dysuria (principal); R32 Unspecified urinary incontinence; L03.113 Cellulitis of right upper limb; E03.9 Hypothyroidism, unspecified | CPT/HCPCS: 80053; 81000; 81003; 82306; 82607; 84443; 85025; 87086 ==

== ENCOUNTER 2022-08-07 13:14 | Outpatient (CLI) | payer MEDICAID, SELFPAY ==
--- NOTE | 2022-08-07 15:15 | US_ITS ---
WS: [id number] Ultrasound pelvis, male. HISTORY: R10.32 - Left lower quadrant pain COMPARISON: None available. Urinary bladder is well distended. No intraluminal filling defect. No free fluid. Urinary bladder is only minimally distended. No significant or asymmetric wall thickening taking into consideration the underdistention. There is no free fluid or pelvic mass. US/US pelvic complete* [id number] IMPRESSION: Negative pelvic ultrasound male patient.
== END 2022-08-07 13:15 | disposition home or self-care (01) ==
LOC: RAD 13:17
PROVIDERS: PCP Nurse Practitioner Family; Visit Provider Nurse Practitioner Family
DX: R10.32 Left lower quadrant pain (principal); M20.42 Other hammer toe(s) (acquired), left foot; M20.41 Other hammer toe(s) (acquired), right foot
CPT/HCPCS: 76856; 99213

== ENCOUNTER → 2022-08-20 15:52 | Outpatient (BNVA) | payer MEDICAID, SELFPAY | PROVIDERS: PCP Nurse Practitioner Family; Visit Provider Nurse Practitioner Family | DX: D72.819 Decreased white blood cell count, unspecified (principal); E55.9 Vitamin D deficiency, unspecified | CPT/HCPCS: 85025 ==

== ENCOUNTER → 2022-10-03 11:50 | Outpatient (BNVA) | payer MEDICAID, SELFPAY | PROVIDERS: PCP Nurse Practitioner Family; Visit Provider Nurse Practitioner Family | DX: E55.9 Vitamin D deficiency, unspecified (principal); E03.9 Hypothyroidism, unspecified; R56.9 Unspecified convulsions; J30.9 Allergic rhinitis, unspecified; E53.8 Deficiency of other specified B group vitamins | CPT/HCPCS: 80164; 82306; 82607; 84443 ==

== ENCOUNTER → 2023-01-13 11:55 | Outpatient (BNVA) | payer MEDICAID, SELFPAY | PROVIDERS: PCP Nurse Practitioner Family; Visit Provider Nurse Practitioner Family | DX: E53.8 Deficiency of other specified B group vitamins (principal); E03.9 Hypothyroidism, unspecified; R07.9 Chest pain, unspecified; R73.9 Hyperglycemia, unspecified; E55.9 Vitamin D deficiency, unspecified | CPT/HCPCS: 80053; 80061; 82306; 82607; 83036; 83735; 84443; 85025; 93005 ==

== ENCOUNTER → 2023-01-28 13:27 | Outpatient (BNVA) | payer MEDICAID, SELFPAY | PROVIDERS: PCP Nurse Practitioner Family; Visit Provider Podiatrist Foot & Ankle Surgery | DX: M20.41 Other hammer toe(s) (acquired), right foot; M20.42 Other hammer toe(s) (acquired), left foot; M20.11 Hallux valgus (acquired), right foot; M20.12 Hallux valgus (acquired), left foot | CPT/HCPCS: 99213 ==

== ENCOUNTER 2023-03-03 13:27 | Emergency (ER) | payer MEDICAID, SELFPAY ==
[2023-03-03 13:30] VITALS: BP 122/89; PULSE 114; RESP 12; TEMP 36.9; O2SAT 98; BMI 31.1
[2023-03-03 13:41] LABS: Glucose Point of Care 101 mg/dL (70-110)
--- NOTE | 2023-03-03 13:57 | ECG_ITS ---
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 Measurements Intervals [place] Rate: 98 P: 42 NE: 123 QRS: 27 QRSD: 79 T: 51 QT: 341 QTc: 436 Interpretive Statements SINUS RHYTHM MODERATE ST DEPRESSION [0.05+ mV ST DEPRESSION] Compared to ECG 01/18/2022 17:56:32 ST (T wave) deviation now present Sinus tachycardia no longer present Electronically Signed On 03-03-2023 16:14:32 CDT by Marcel Ingram M.D. [email or web address]
--- NOTE | 2023-03-03 14:05 | CT_ITS ---
WS: [id number] CT HEAD NONCONTRAST HISTORY: ams, stuttering speech TECHNIQUE: Contiguous axial imaging performed through the brain in 2.5 mm imaging. Bone and soft tiss ue windows. Sagittal and coronal reformats reviewed. All CT scans at [facility] use at least one of these dose optimization techniques: automated exposure control; mA and/or kV adjustment per pa tient size (includes targeted exams where dose is matched to clinical indication); or iterative recon struction. DLP: 1018.49 mGy.cm COMPARISON: 01/18/2022 No acute intracranial hemorrhage, midline shift or mass effect. No atrophy or prior infarcts or herniation. Ventricles: Normal size with no hydrocephalus. No inferior displacement of cerebellar tonsils. Paranasal sinuses: Moderate mucoperiosteal thickening in the sphenoid sinuses. No air-fluid levels Mastoid air cells: Well pneumatized. Calvarium and scalp: Skull is intact with no soft tissue edema or swelling. IMPRESSION: Negative head CT.
--- NOTE | 2023-03-03 14:05 | XRR_ITS ---
PROCEDURE INFORMATION: Exam: XR Chest Exam date and time: 03/03/2023 2:23 PM Age: 22 years old Clinical indication: Other: AMS TECHNIQUE: Imaging protocol: Radiologic exam of the chest. Views: 1 view. COMPARISON: CT chest w con* [id number] 01/18/2022 10:27 PM FINDINGS: Lungs: Unremarkable. No consolidation. Pleural spaces: Unremarkable. No pleural effusion. No pneumothorax. Heart/Mediastinum: Unremarkable. No cardiomegaly. Bones/joints: Unremarkable. XR/XR chest 1V portable [id number] IMPRESSION: No acute findings.
[2023-03-03 14:20] LABS: Basophils % 0.2 %; Eosinophils % 0.4 %; Hematocrit 30.9 % (37-53); Lymphocytes # 0.9 10^3/uL (0.8-4.8); Lymphocytes % 15.7 %; Mean Corpuscular HGB Conc 33.3 g/dL (30-55); Mean Corpuscular Hemoglobin 30.5 pg (27-33); Mean Corpuscular Volume 91.4 fl (82-101); Mean Platelet Volume 9.8 fL (7.4-10.4); Monocytes # 0.4 10^3/uL (0.2-0.9); Monocytes % 6.4 %; Neutrophils # 4.21 10^3/uL (1.8-7.7); Neutrophils % 76.6 %; Nucleated Red Blood Cells % 0.7 %; Platelet Count 152 10^3/cmm (157-399); Red Blood Count 3.38 10^6/uL (3.85-5.65); Red Cell Distribution Width 14.4 % (12.1-15.1); White Blood Count 5.49 10^3/uL (3.29-11.43)
--- NOTE | 2023-03-03 14:20 | ED_ITS ---
HPI - Altered Mental Status General: Chief Complaint: Altered Mental Status Stated Complaint: stroke like symptoms Time Seen by Provider: 03/03/23 13:57 History of Present Illness: Patient presents to the ER with complaints of being slow to respond. Patient walking with unsteady gait. Patient does take Depakote. Patient is also had a fever the last several days. 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 Patient does have seizures and is mentally challenged. Review of Systems General: Reports: 10 or more systems reviewed and unremarkable except in HPI and below PFSH ED PFSH: Medical History Acute cystitis Asthma Benign tumor of pituitary gland Constipation, chronic Psychiatric care Seasonal allergies Seizures Vitamin D deficiency Surgical History History of tonsillectomy and adenoidectomy Hx of hernia repair Family History Father Heart disease Social History Smoking and tobacco status: current every day smoker smokeless tobacco Smokeless tobacco user: chewing tobacco Smokeless tobacco details: One can/Day Quit status (tobacco): not considering quitting Second hand smoke exposure: No Smoking risk assessment/counseling performed?: No Alcohol intake: never Desire information about alcohol rehabilitation?: No Counseling given: No Substance/Drug Use: never Desire information about substance/drug rehabilitation?: No Counseling given: No Caregiver/support person: No Lives independently: No Household members: family Marital status: Single service: No Current occupational status: disabled Current gender identity: Male Physical Exam Const: COMMON NORMALS: no acute distress, average body habitus, no limitations, healthy appearing, alert and well nourished HENMT: COMMON NORMALS: normocephalic, hearing grossly normal bilaterally, external ears normal, Normal external nose present and moist oral mucous membr anes HEAD & SCALP: normocephalic NOSE: Normal external nose present EXTERNAL EAR: Yes external ears normal Eye: COMMON NORMALS: Equal, round and reactive pupils present, EOMs intact bilaterally, conjunctivae normal and no scleral icterus CONJUNCTIVA: Yes conjunctivae normal PUPIL: Yes Equal, round and reactive pupils present Neck/C-Spine: COMMON NORMALS: full ROM, no lymphadenopathy, supple, no meningeal signs, no JVD and Thyroid normal THYROID: Thyroid normal Lymph: LYMPHATIC: no lymphadenopathy noted Chest: COMMONS NORMALS: normal inspection of the chest and normal palpation of entire chest wall Resp: COMMON NORMALS: normal respiratory effort, No retractions, No use of accessory muscles and clear to auscultation bilaterally AUSCULTATION: clear to auscultation bilaterally Cardio: COMMON NORMALS: no JVD, regular rate, regular rhythm, S1 normal heart sound present, S2 normal heart sound present, No gallops present (Cardio), No clicks present (Cardio), No murmurs present (Cardio) and No rub (Cardio) RATE: regular rate RHYTHM: regular rhythm HEART SOUNDS: S1 normal heart sound present and S2 normal heart sound present GI: COMMON NORMALS: Normal to inspection, nondistended, normoactive bowel sounds present, Soft to palpation, non-tender, No hepatosplenomegaly present and no masses PALPATION: Yes Soft to palpation and Yes No hepatosplenomegaly present : COMMON NORMALS: Yes no CVA tenderness BLADDER/KIDNEY EXAM: Yes no CVA t enderness Back/Pelvis: COMMON NORMALS: no CVA tenderness Neuro: SENSORIUM/ORIENTATION: Yes alert MENINGEAL SIGNS: Yes no meningeal signs Course Vital Signs: Vital signs: Vital Signs Temperature 98.5 F 03/03/23 13:30 Pulse Rate 114 H 03/03/23 13:30 Respiratory Rate 12 03/03/23 13:30 Blood Pressure 122/89 03/03/23 13:30 Pulse Oximetry 98 03/03/23 13:30 Oxygen Delivery Me thod Room Air 03/03/23 13:30 MDM - Altered Mental Status Medical Decision Making Lab work was obtained chest x-ray showed no acute findings. Lab work essentially showed no acute changes other than urinary tract infection. P atient's Depakote was 130 which is high however multiple times in the past has been as high with no change. Patient was given Cipro 400 mg IV and will be discharged with Cipro 500 mg twice daily x7 days. Patient should follow-up with his PCP during this time. Lab Data 03/03/23 14:13 03/03/23 14:13 Radiology Impressions Chest X-Ray 03/03/23 14:05 IMPRESSION: No acute findings. Laboratory Results WBC 5.49 10^3/uL (3.29-11.43) 03/03/23 14:13 RBC 3.38 10^6/uL (3.85-5.65) L 03/03/23 14:13 Hgb 10.30 g/dL (11.27-16.99) L 03/03/23 14:13 Hct 30.9 % (37-53) L 03/03/23 14:13 MCV 91.4 fl (82-101) 03/03/23 14:13 MCH 30.5 pg (27-33) 03/03/23 14:13 MCHC 33.3 g/dL (30-55) 03/03/23 14:13 RDW 14.4 % (12.1-15.1) 03/03/23 14:13 Plt Count 152 10^3/cmm (157-399) L 03/03/23 14:13 MPV 9.8 fL (7.4-10.4) 03/03/23 14:13 Neut % (Auto) 76.6 % 03/03/23 14:13 Lymph % (Auto) 15.7 % 03/03/23 14:13 [place] % (Auto) 6.4 % 03/03/23 14:13 Eos % (Auto) 0.4 % 03/03/23 14:13 Baso % (Auto) 0.2 % 03/03/23 14:13 Neut # (Auto) 4.21 10^3/uL (1.8-7.7) 03/03/23 14:13 Lymph # (Auto) 0.9 10^3/uL (0.8-4.8) 03/03/23 14:13 [place] # (Auto) 0.4 10^3/uL (0.2-0.9) 03/03/23 14:13 Eos # (Auto) 0.0 10^3/uL (0.0-0.8) 03/03/23 14:13 Baso # (Auto) 0.0 10^3/uL (0.0-0.1) 03/03/23 14:13 Nucleated RBC % (auto) 0.7 % 03/03/23 14:13 Nucleated RBCs # 0.0 /100WBC 03/03/23 14:13 PT 16.60 SECONDS (12.1-14.9) H 03/03/23 14:13 INR 1.30 (0.8-1.2) H 03/03/23 14:13 Sodium 135 mmol/L (136-145) L 03/03/23 14:13 Potassium 3.4 mmol/L (3.5-5.1) L 03/03/23 14:13 Chloride 92 mmol/L (98-107) L 03/03/23 14:13 Carbon Dioxide 29 mmol/L (22-29) 03/03/23 14:13 Anion Gap 17.4 (5-19) 03/03/23 14:13 BUN 24 mg/dL (6-20) H 03/03/23 14:13 Creatinine 0.8 mg/dL (0.7-1.2) 03/03/23 14:13 GFR Calculation 118.8 mL/min (90-130) 03/03/23 14:13 Glucose 85 mg/dL (65-115) 03/03/23 14:13 POC Glucose 101 mg/dL (70-110) 03/03/23 13:37 Calculated Osmolality 283 mOsm/kg (285-295) L 03/03/23 14:13 Calcium 9.6 mg/dL (8.5-10.5) 03/03/23 14:13 Phosphorus 3.7 mg/dL (2.5-4.5) 03/03/23 14:13 Magnesium 1.6 mg/dL (1.7-2.3) L 03/03/23 14:13 Total Bilirubin 1.0 mg/dL (0.15-1.2) 03/03/23 14:13 AST 19 U/L (0-40) 03/03/23 14:13 ALT 13 U/L (0-41) 03/03/23 14:13 Alkaline Phosphatase 61 U/L (40-130) 03/03/23 14:13 Troponin T Gen 5 ng/L 11 ng/L (0-15) 03/03/23 14:13 Total Protein 7.1 g/dL (6.6-8.7) 03/03/23 14:13 Albumin 4.0 g/dL (3.5-5.2) 03/03/23 14:13 Globulin 3.1 g/dL (1.3-4.6) 03/03/23 14:13 TSH 11.06 uIU/mL (0.27-4.20) H 03/03/23 14:13 Urine Color Yellow (Yellow) 03/03/23 18:36 Urine Appearance Turbid (CLEAR) A 03/03/23 18:36 Urine pH 5 (5-7) 03/03/23 18:36 Ur Specific [place] 1.020 (1.005-1.030) 03/03/23 18:36 Urine Protein 3+ (Negative) H 03/03/23 18:36 Urine Glucose (UA) Norm (Normal) 03/03/23 18:36 Urine Ketones 1+ (Negative) H 03/03/23 18:36 Urine Blood 3+ (Negative) H 03/03/23 18:36 Urine Nitrate Negative (Negative) 03/03/23 18:36 Urine Bilirubin Neg (Negative) 03/03/23 18:36 Urine Urobilinogen 4 mg/dL (Negative) H 03/03/23 18:36 Ur Leukocyte Esterase 2+ (Negative) H 03/03/23 18:36 Urine RBC 25-40 /hpf (0-2) H 03/03/23 18:36 Urine WBC Too numerous to cnt /hpf (0-5) H 03/03/23 18:36 Ur Squamous Epith Cells 0-4 /hpf (0-5) H 03/03/23 18:36 Amorphous Sediment Not Reportable 03/03/23 18:36 Urine Bacteria 1+ /hpf (NONE) H 03/03/23 18:36 Urine Opiates Screen Negative ng/mL (Negative) 03/03/23 18:36 Ur Barbiturates Screen Negative ng/mL (Negative) 03/03/23 18:36 Valproic Acid 133.2 ug/mL (50-100) H 03/03/23 14:13 Ur Phencyclidine Scrn Negative ng/mL (Negative) 03/03/23 18:36 Ur Amphetamines Screen Negative ng/mL (Negative) 03/03/23 18:36 U Benzodiazepines Scrn Negative ng/mL (Negative) 03/03/23 18:36 Urine Cocaine Screen Negative ng/mL (Negative) 03/03/23 18:36 U Marijuana (THC) Screen Negative ng/mL (Negative) 03/03/23 18:36 All radiology interpretation(s) finalized by discharge EKG Data EKG 1: I personally reviewed and interpreted this EKG as follows: EKG interpretation date: 03/03/23 EKG interpretation time: 14:30 Prior EKG tracings: not available for review Interpretation: EKG shows ventricular rate 98 bpm, LA interval 123, QRS duration 79, QTc 396, sinus rhythm, moderate ST depression Discharge Plan Discharge Patient Disposition: Home Clinical Impression: Urinary tract infection Qualifiers: Urinary tract infection type: acute cystitis Hematuria presence: with hematuria Qualified Code(s): N30.01 - Acute cystitis with hematuria Condition: Stable Prescriptions: New ciprofloxacin HCl 500 mg tablet 500 mg PO Q12H Qty: 14 0RF No Action albuterol sulfate [ProAir HFA] 90 mcg/actuation HFA aerosol inhaler 1 inh inhalation QID PRN (Reason: Shortness Of Breath) triamcinolone acetonide 0.1 % cream 1 applic topical BID 14 Days Qty: 80 0RF divalproex [Depakote] 500 mg tablet,delayed release (DR/EC) 500 mg PO QAM Tylenol Ex Str Rapid Release 500 mg Tablet 1,000 mg PO Q6H PRN (Reason: Pain) trazodone 50 mg tablet 100 mg PO BEDTIME PRN (Reason: insomnia) cetirizine 10 mg tablet 10 mg PO QAM sertraline 100 mg tablet 100 mg PO QAM levothyroxine 50 mcg tablet 50 mcg PO DAILY montelukast 10 mg tablet 10 mg PO BEDTIME Flonase Allergy Relief 50 mcg/actuation spray,suspension 2 spray INTRANASAL DAILY PRN (Reason: Allergy Symptoms) Rx Instructions: administer into each nostril Discharge Orders: Discharge ED (Routine); Ordered 03/03/23 Ordered By: Chandra Larson Referrals: Shima Larson FNP [Primary Care Provider] - 1 week Patient Instructions: Urinary Tract Infection - Men Activity Restrictions/Additional Instructions: Please take all your antibiotics as prescribed. Please follow-up with your family practice physician within the next 7 days as needed for further evaluation and treatment. Coding Level of Care Code ED Embossing Toolsetter for Marcus Cobos
--- NOTE | 2023-03-03 14:25 | PC.PHAR ---
Addendum entered by Christelle Smith 03/03/23 14:27: pts mother states the pt takes zoloft 100mg qam rx filled 02/24/23 30d/s 200mg daily Original Note: pts mother verified pts medications-pts mother states the pt no longer uses the advair inhaler-pts mother states the levothyroxine 50mcg was dced states the pt just finished on ext shows filled 01/10/23 30d/s-notes are made in the pharmacy comments
[2023-03-03 14:35] LABS: Valproic Acid Level 133.2 ug/mL (50-100)
[2023-03-03 14:47] LABS: Alanine Aminotransferase 13 U/L (0-41); Alkaline Phosphatase 61 U/L (40-130); Anion Gap 17.4 (5-19); Aspartate Amino Transferase 19 U/L (0-40); Blood Urea Nitrogen 24 mg/dL (6-20); Calcium 9.6 mg/dL (8.5-10.5); Carbon Dioxide 29 mmol/L (22-29); Chloride 92 mmol/L (98-107); Globulin 3.1 g/dL (1.3-4.6); Glomerular Filtration Rate 118.8 mL/min (90-130); Glucose 85 mg/dL (65-115); Magnesium 1.6 mg/dL (1.7-2.3); Osmolality Calculated 283 mOsm/kg (285-295); Phosphorus 3.7 mg/dL (2.5-4.5); Potassium 3.4 mmol/L (3.5-5.1); Sodium 135 mmol/L (136-145); Thyroid Stimulating Hormone 11.06 uIU/mL (0.27-4.20); Total Protein 7.1 g/dL (6.6-8.7)
[2023-03-03 15:00] LABS: Troponin T (5th) Once 11 ng/L (0-15)
[2023-03-03] MEDS: sodium chloride 0.9% 1,000 ML 999 ML IV (15:21)
[2023-03-03 18:46] LABS: Urine Appearance Turbid (CLEAR); Urine Color Yellow (Yellow); pH Urine 5 (5-7)
[2023-03-03 18:47] LABS: Add Urine Culture? Yes; Add Urine Microscopic? YES; Bacteria Urine 1+ /hpf; Bilirubin Urine Neg (Negative); Blood Urine 3+ (Negative); Glucose Urine UA Norm (Normal); Ketones Urine 1+ (Negative); Leukocyte Esterase Urine 2+ (Negative); Nitrate Urine Negative (Negative); Protein Urine 3+ (Negative); RBC Urine 25-40 /hpf (0-2); Squamous Epithelial Cell Urine 0-4 /hpf (0-5); Urobilinogen Urine 4 mg/dL (Negative); WBC Urine TOO NUMEROUS TO CNT /hpf (0-5)
[2023-03-03 18:49] LABS: Amphetamines Screen Urine Negative (Negative); Barbiturates Screen Urine Negative (Negative); Benzodiazepines Screen Urine Negative (Negative); Cocaine Screen Urine Negative (Negative); Opiate Screen Urine Negative (Negative); PCP Screen Urine Negative (Negative); THC Screen Urine Negative (Negative)
[2023-03-03] MEDS: ciprofloxacin 400 MG/200 ML PREMIX 200 MG IV (19:25)
== END 2023-03-03 20:34 | disposition home or self-care (01) ==
PROVIDERS: Emergency Provider Emergency Medicine; PCP Nurse Practitioner Family
DX: N30.01 Acute cystitis with hematuria (principal); F17.220 Nicotine dependence, chewing tobacco, uncomplicated; M20.41 Other hammer toe(s) (acquired), right foot; M20.42 Other hammer toe(s) (acquired), left foot; M20.11 Hallux valgus (acquired), right foot; M20.12 Hallux valgus (acquired), left foot
CPT/HCPCS: 36416; 70450; 71045; 80053; 80164; 80306; 81001; 82962; 83735; 84100; 84443; 84484; 85025; 85610; 87077; 87086; 87186; 93005; 96361; 96374; 99213; 99285; J0744; J7030

== ENCOUNTER 2023-03-16 19:01 | Inpatient (IN) | payer MEDICAID, SELFPAY ==
[2023-03-16] VITALS (7 sets, daily range): BP systolic 125–145; BP diastolic 72–100; PULSE 112–129; RESP 15–18; TEMP 36.9; O2SAT 95–99; BMI 23.0
--- NOTE | 2023-03-16 19:45 | CTR_ITS ---
PROCEDURE INFORMATION: Exam: CT Head Without Contrast Exam date and time: 03/16/2023 7:55 PM Age: 22 years old Clinical indication: Condition or disease; Convulsions or seizures; Patient HX: Witnessed seizure. History of seizure disorder. ; Additional info: Sz TECHNIQUE: Imaging protocol: Computed tomography of the head without contrast. Axial, coronal and sagittal reformatted images were created and reviewed. Radiation optimization: All CT scans at this facility use at least one of these dose optimization techniques: automated exposure control; mA and/or kV adjustment per patient size (includes targeted exams where dose is matched to clinical indication); or iterative reconstruction. REPORTING DATA: Count of CT and Cardiac NM exams in prior 12 months: This patient has received [address] and 0 known cardiac nuclear medicine studies in the 12 months prior to the current study. COMPARISON: CT head wo con* [id number] 03/03/2023 2:18 PM RADIATION DOSE METRICS: Total DLP (mGy-cm): 1100.67 FINDINGS: Brain: No CT evidence of acute intracranial hemorrhage or acute territorial infarction. No significant mass effect or midline shift. Basal cisterns patent. Cerebral ventricles: Prominence of the cortical sulci, cisterns and ventricular system, consistent with cerebral and cerebellar volume loss. Paranasal sinuses: Minimal polypoid left sphenoid sinus mucosal thickening. No fluid levels. Mastoid air cells: Grossly unremarkable. Bones/joints: No acute osseous abnormality. Soft tissues: Grossly unremarkable. CT/CT head wo con* [id number] IMPRESSION: 1[address] No CT evidence of acute intracranial pathology. 2. Additional findings, as above.
--- NOTE | 2023-03-16 19:45 | XRR_ITS ---
PROCEDURE INFORMATION: Exam: XR Chest Exam date and time: 03/16/2023 8:07 PM Age: 22 years old Clinical indication: Patient HX: Cough; Seizure; Recent UTI TECHNIQUE: Imaging protocol: Radiologic exam of the chest. Views: 1 view. COMPARISON: CR XR chest 1V portable [id number] 03/03/2023 2:23 PM FINDINGS: Lungs: Unremarkable. No consolidation. Pleural spaces: Unremarkable. No pleural effusion. No pneumothorax. Heart/Mediastinum: Unremarkable. No cardiomegaly. Bones/joints: Unremarkable. XR/XR chest 1V portable [id number] IMPRESSION: No acute radiographic findings.
[2023-03-16 20:00] LABS: Basophils % 0.2 %; Eosinophils % 0.2 %; Hematocrit 23.4 % (37-53); Lymphocytes # 0.9 10^3/uL (0.8-4.8); Lymphocytes % 16.3 %; Mean Corpuscular HGB Conc 34.2 g/dL (30-55); Mean Corpuscular Hemoglobin 30.4 pg (27-33); Mean Platelet Volume 10.4 fL (7.4-10.4); Monocytes # 0.1 10^3/uL (0.2-0.9); Monocytes % 2.5 %; Neutrophils # 4.17 10^3/uL (1.8-7.7); Nucleated Red Blood Cells % 0.4 %; Platelet Count 103 10^3/cmm (157-399); Red Blood Count 2.63 10^6/uL (3.85-5.65); Red Cell Distribution Width 13.7 % (12.1-15.1); White Blood Count 5.21 10^3/uL (3.29-11.43)
--- NOTE | 2023-03-16 20:12 | ED_ITS ---
HPI - Seizure General: Chief Complaint: Seizure Stated Complaint: SEIZURE Time Seen by Provider: 03/16/23 19:05 Source: patient History of Present Illness: HPI Narrative: 22-year-old male with a history of seizure disorder. He has had several seizure episodes today, the last one lasting around 3 minutes or so. He evidently loses consciousness and shakes with the seizures. He does not have memories of these events. He has a postictal phase. He presents with generalized weakness. His mother states that he either cannot or will not get out of bed. He has significant problems walking. His speech is slurred. He was diagnosed with a urinary tract infection several days ago, and evidently finished his antibiotics. She wonders if this was incompletely treated. complaint: seizure Onset (ago): minute(s) Description of Episode: loss of consciousness and tonic-clonic movement Trauma: No Seizure History: Yes Place: Home Associated symptoms: Reports fever(s) (Subjective Per mother); Deny chest pain Review of Systems Const: Reports: fever(s) (Subjective Per mother) ENMT: Denies: throat pain Card: Denies: chest pain or palpitations Resp: Denies: dyspnea, productive cough or non-productive cough GI: Reports: nausea and vomiting (3 days ago); Denies: abdominal pain Musc: Reports: back pain Neuro: Reports: weakness in extremities, behavioral changes and Slurred speech present [facility] ED PFSH: Medical History Acute cystitis Asthma Benign tumor of pituitary gland Constipation, chronic Psychiatric care Seasonal allergies Seizures Vitamin D deficiency Surgical History History of tonsillectomy and adenoidectomy Hx of hernia repair Family History Father Heart disease Social History Smoking and tobacco status: current every day smoker smokeless tobacco Smokeless tobacco user: chewing tobacco Smokeless tobacco details: One can/Day Quit status (tobacco): not considering quitting Second hand smoke exposure: No Smoking risk assessment/counseling performed?: No Alcohol intake: never Desire information about alcohol rehabilitation?: No Counseling given: No Substance/Drug Use: never Desire information about substance/drug rehabilitation?: No Counseling given: No Caregiver/support person: No Lives independently: No Household members: family Marital status: Single service: No Current occupational status: disabled Current gender identity: Male Physical Exam Const: COMMON NORMALS: alert GENERAL APPEARANCE: cooperative, ill appearing and frail appearing ORIENTATION/CONSCIOUSNESS: Yes oriented to person and Yes oriented to place; not oriented to time HENMT: COMMON NORMALS: atraumatic and Normal external nose present HEAD & SCALP: atraumatic FACE & SINUS: face symmetric NOSE: Normal external nose present and Normal nares present MOUTH: tongue normal Eye: COMMON NORMALS: Equal, round and reactive pupils present and EOMs intact bilaterally PUPIL: Yes Equal, round and reactive pupils present Neck/C-Spine: GENERAL: Yes trachea midline Chest: CHEST: Yes Symmetrical chest wall rise Resp: COMMON NORMALS: normal respiratory effort, No retractions, No use of accessory muscles and clear to auscultation bilaterally AUSCULTATION: clear to auscultation bilaterally Cardio: COMMON NORMALS: regular rhythm RATE: tachycardic RHYTHM: regular rhythm GI: COMMON NORMALS: Normal to inspection, nondistended, normoactive bowel sounds present PALPATION: Yes Tenderness to palpation present (GI) (Mild) Neuro: SENSORIUM/ORIENTATION: Yes alert, Yes oriented to person, Yes oriented to place and No oriented to time CRANIAL NERVES: Yes CN normal except as noted COORDINATION/BALANCE: No [id number] test normal SPEECH: abnormal speech (Mild) Details: slurred MOTOR EXAM: Abnormal muscle tone present (Decreased proximal muscle tone. Diffuse.) COORDINATION: [id number] test abnormal Course Vital Signs: Vital signs: Vital Signs Temperature 98.5 F 03/16/23 19:01 Pulse Rate 129 H 03/16/23 23:01 Respiratory Rate 17 03/16/23 23:01 Blood Pressure 137/72 03/16/23 23:01 Pulse Oximetry 98 03/16/23 23:01 Oxygen Delivery Me thod Room Air 03/16/23 23:01 MDM - Seizure MDM Narrative Medical decision making narrative: 22-year-old male patient with a history of seizure disorder and multiple seizures today. Vitals are stable. His hemoglobin is 8. It was 10 in February. Depakote level is appropriate. Potassium mildly low, and is replete d here. Urinalysis is negative. Lactic acid is 1. CK is low. Other laboratory is benign. Head CT reveals no acute findings. Chest x-ray is nonacute as well. This patient is significantly deconditioned. He has had intractable seizures and worsening anemia. He will be observed. Hospitalist zach harper see the patient. Lab Data 03/16/23 19:09 03/16/23 19:09 Labs: Radiology Impressions Chest X-Ray 03/16/23:45 IMPRESSION: No acute radiographic findings. Head CT 03/16/23:45 IMPRESSION: 1. No CT evidence of acute intracranial pathology. 2. Additional findings, as above. Laboratory Results WBC 5.21 10^3/uL (3.29-11.43) 03/16/23 19: RBC 2.63 10^6/uL (3.85-5.65) L 03/16/23 19: Hgb 8.00 g/dL (11.27-16.99) L 03/16/23 19: Hct 23.4 % (37-53) L 03/16/23 19: MCV 89.0 fl (82-101) 03/16/23 19: MCH 30.4 pg (27-33) 03/16/23 19: MCHC 34.2 g/dL (30-55) 03/16/23 19: RDW 13.7 % (12.1-15.1) 03/16/23 19: Plt Count 103 10^3/cmm (157-399) L 03/16/23 19: MPV 10.4 fL (7.4-10.4) 03/16/23 19: Neut % (Auto) 80.0 % 03/16/23 19: Lymph % (Auto) 16.3 % 03/16/23 19: [place] % (Auto) 2.5 % 03/16/23 19: Eos % (Auto) 0.2 % 03/16/23 19: Baso % (Auto) 0.2 % 03/16/23 19: Neut # (Auto) 4.17 10^3/uL (1.8-7.7) 03/16/23 19: Lymph # (Auto) 0.9 10^3/uL (0.8-4.8) 03/16/23 19:09 [place] # (Auto) 0.1 10^3/uL (0.2-0.9) L 03/16/23 19:09 Eos # (Auto) 0.0 10^3/uL (0.0-0.8) 03/16/23 19:09 Baso # (Auto) 0.0 10^3/uL (0.0-0.1) 03/16/23 19:09 Nucleated RBC % (auto) 0.4 % 03/16/23 19:09 Nucleated RBCs # 0.0 /100WBC 03/16/23 19:09 Sodium 134 mmol/L (136-145) L 03/16/23 19:09 Potassium 3.3 mmol/L (3.5-5.1) L 03/16/23 19:09 Chloride 92 mmol/L (98-107) L 03/16/23 19:09 Carbon Dioxide 27 mmol/L (22-29) 03/16/23 19:09 Anion Gap 18.3 (5-19) 03/16/23 19:09 BUN 15 mg/dL (6-20) 03/16/23 19:09 Creatinine 0.6 mg/dL (0.7-1.2) L 03/16/23 19:09 GFR Calculation 165.5 mL/min (90-130) H 03/16/23 19:09 Glucose 78 mg/dL (65-115) 03/16/23 19:09 Calculated Osmolality 278 mOsm/kg (285-295) L 03/16/23 19:09 Lactic Acid 1.0 mmol/L (0.5-2.2) 03/16/23 19:09 Calcium 9.4 mg/dL (8.5-10.5) 03/16/23 19:09 Phosphorus 3.2 mg/dL (2.5-4.5) 03/16/23 19:09 Magnesium 1.6 mg/dL (1.7-2.3) L 03/16/23 19:09 Total Bilirubin 0.7 mg/dL (0.15-1.2) 03/16/23 19:09 AST 17 U/L (0-40) 03/16/23 19:09 ALT 16 U/L (0-41) 03/16/23 19:09 Alkaline Phosphatase 59 U/L (40-130) 03/16/23 19:09 Creatine Kinase 13 U/L (39-308) L 03/16/23 19:09 C-Reactive Protein 63.5 mg/L (0.0-4.9) H 03/16/23 19:09 Total Protein 6.9 g/dL (6.6-8.7) 03/16/23 19:09 Albumin 3.8 g/dL (3.5-5.2) 03/16/23 19:09 Globulin 3.1 g/dL (1.3-4.6) 03/16/23 19:09 TSH 8.32 uIU/mL (0.27-4.20) H 03/16/23 19:09 Urine Color [place] (Yellow) 03/16/23 20:48 Urine Appearance Clear (CLEAR) 03/16/23 20:48 Urine pH 5 (5-7) 03/16/23 20:48 Ur Specific [place] 1.025 (1.005-1.030) 03/16/23 20:48 Urine Protein 1+ (Negative) H 03/16/23 20:48 Urine Glucose (UA) Norm (Normal) 03/16/23 20:48 Urine Ketones 3+ (Negative) H 03/16/23 20:48 Urine Blood Neg (Negative) 03/16/23 20:48 Urine Nitrate Negative (Negative) 03/16/23 20:48 Urine Bilirubin 1+ (Negative) H 03/16/23 20:48 Urine Urobilinogen 4 mg/dL (Negative) H 03/16/23 20:48 Ur Leukocyte Esterase Trace (Negative) H 03/16/23 20:48 Urine RBC 0-4 /hpf (0-2) H 03/16/23 20:48 Urine WBC 5-10 /hpf (0-5) H 03/16/23 20:48 Ur Squamous Epith Cells 0-4 /hpf (0-5) H 03/16/23 20:48 Amorphous Sediment 1+ /hpf 03/16/23 20:48 Urine Bacteria Trace /hpf (NONE) 03/16/23 20:48 Urine Mucus 3+ /hpf 03/16/23 20:48 Urine Opiates Screen Negative ng/mL (Negative) 03/16/23 20:48 Ur Barbiturates Screen Negative ng/mL (Negative) 03/16/23 20:48 Valproic Acid 110.1 ug/mL (50-100) H 03/16/23 19:09 Ur Phencyclidine Scrn Negative ng/mL (Negative) 03/16/23 20:48 Ur Amphetamines Screen Negative ng/mL (Negative) 03/16/23 20:48 U Benzodiazepines Scrn Positive ng/mL (Negative) H 03/16/23 20:48 Urine Cocaine Screen Negative ng/mL (Negative) 03/16/23 20:48 U Marijuana (THC) Screen Negative ng/mL (Negative) 03/16/23 20:48 Ethyl Alcohol < 10 mg/dL (0-10) 03/16/23 19:09 All radiology interpretation(s) finalized by discharge Discharge Plan Discharge Patient Disposition: Placed in Observation Admit Provider: Mateo Mackenzie Clinical Impression: Generalized weakness, Anemia, Seizures Coding Level of Care Code ED Unloading Checker for Marcus Cobos
[2023-03-16 20:20] LABS: Alanine Aminotransferase 16 U/L (0-41); Albumin Level 3.8 g/dL (3.5-5.2); Alcohol Level < 10 mg/dL (0-10); Alkaline Phosphatase 59 U/L (40-130); Anion Gap 18.3 (5-19); Aspartate Amino Transferase 17 U/L (0-40); Blood Urea Nitrogen 15 mg/dL (6-20); C Reactive Protein 63.5 mg/L (0.0-4.9); Calcium 9.4 mg/dL (8.5-10.5); Carbon Dioxide 27 mmol/L (22-29); Chloride 92 mmol/L (98-107); Creatine Phosphokinase 13 U/L (39-308); Globulin 3.1 g/dL (1.3-4.6); Glomerular Filtration Rate 165.5 mL/min (90-130); Glucose 78 mg/dL (65-115); Magnesium 1.6 mg/dL (1.7-2.3); Osmolality Calculated 278 mOsm/kg (285-295); Phosphorus 3.2 mg/dL (2.5-4.5); Potassium 3.3 mmol/L (3.5-5.1); Sodium 134 mmol/L (136-145); Thyroid Stimulating Hormone 8.32 uIU/mL (0.27-4.20); Total Bilirubin 0.7 mg/dL (0.15-1.2); Total Protein 6.9 g/dL (6.6-8.7)
[2023-03-16] MEDS: sodium chloride 0.9% 1,000 ML 999 ML IV (20:30)
[2023-03-16 20:52] LABS: Valproic Acid Level 110.1 ug/mL (50-100)
[2023-03-16 21:15] LABS: Protein Urine 1+ (Negative); Specific Gravity, Urine 1.025 (1.005-1.030); Urine Appearance Clear (CLEAR); Urine Color Amber (Yellow); pH Urine 5 (5-7)
[2023-03-16 21:16] LABS: Add Urine Microscopic? YES; Amorphous Sediment Urine 1+ /hpf; Bacteria Urine TRACE /hpf; Bilirubin Urine 1+ (Negative); Blood Urine Neg (Negative); Glucose Urine UA Norm (Normal); Ketones Urine 3+ (Negative); Leukocyte Esterase Urine Trace (Negative); Mucus Urine 3+ /hpf; Nitrate Urine Negative (Negative); RBC Urine 0-4 /hpf (0-2); Squamous Epithelial Cell Urine 0-4 /hpf (0-5); Urobilinogen Urine 4 mg/dL (Negative)
[2023-03-16 21:17] LABS: Add Urine Culture? No; Amphetamines Screen Urine Negative (Negative); Barbiturates Screen Urine Negative (Negative); Benzodiazepines Screen Urine Positive (Negative); Cocaine Screen Urine Negative (Negative); Opiate Screen Urine Negative (Negative); PCP Screen Urine Negative (Negative); THC Screen Urine Negative (Negative)
[2023-03-16] MEDS: potassium chloride oral liq 20 mEq/15 mL UDC 40 MEQ PO (22:22)
--- NOTE | 2023-03-16 22:37 | PM.HP ---
Providers/Chief Complaint Primary Care Provider: SPENSER Quezada Chief Complaint: SEIZURE History of Present Illness Hussein Man is a 22 year old male with a past medical history of seizures, hypothyroidism, history of developmental delay, who presents to [facility] due to breakthrough seizures, weakness, currently patient is alert to person, not to place, not to time, his mother is not at bedside, nursing staff tell me that patient's mom has reported recurrent breakthrough seizures, he had 3 breakthrough seizures today, has been taking only seizure medications, he is also has a UTI for which he is taking antibiotics, she tells her that for the last few days he is not able to ambulate, she has noted some right-sided weakness, according to patient, he denies any chest pain, no shortness of breath no abdominal pain, no focal weakness he can follow commands, able to move bilateral upper and lower extremities, I cannot discern any focal weakness no facial droop, he tells me that he has fallen but he does not tell me exactly timeframe of falling, he tells me he normally ambulates in a walker, he denies any flank pain, no back pain no lower extremity pain, he reports he is taking all his medications, Review of Systems Const: Denies: fever(s) Card: Denies: chest pain GI: Denies: abdominal pain Musc: Denies: neck pain or back pain Medications/Allergies Home Medications Medication Instructions Recorded Confirmed Last Taken Type albuterol sulfate 90 mcg/actuation 1 inh inhalation QID PRN Shortness 11/12/21 03/03/23 Unknown History aerosol inhaler (ProAir HFA) Of Breath divalproex 500 mg tablet,delayed 500 mg PO QAM 12/13/21 03/03/23 03/03/23 History release (Depakote) triamcinolone acetonide 0.1 % 1 applic topical BID 14 days #80 02/19/23 03/03/23 Unknown Rx topical cream grams acetaminophen 500 mg tablet 1,000 mg PO Q6H PRN Pain 03/03/23 03/03/23 Unknown History cetirizine 10 mg tablet 10 mg PO QAM 03/03/23 03/03/23 03/03/23 History ciprofloxacin HCl 500 mg tablet 500 mg PO Q12H #14 tabs 03/03/23 Unknown Rx fluticasone propionate 50 2 spray intranasal DAILY PRN 03/03/23 03/03/23 Unknown History mcg/actuation nasal Allergy Symptoms spray,suspension (Flonase Allergy Relief) montelukast 10 mg tablet 10 mg PO BEDTIME 03/03/23 03/03/23 Unknown History sertraline 100 mg tablet 100 mg PO QAM 03/03/23 03/03/23 03/03/23 History rx filled 200mg qam trazodone 50 mg tablet 100 mg PO BEDTIME PRN insomnia 03/03/23 03/03/23 Unknown History levothyroxine 75 mcg tablet 75 mcg PO DAILY #30 tabs 03/10/23 Unknown Rx Allergies Allergy/AdvReac Type Severity Reaction Status Date / Time No Known Allergies Allergy Verified 03/16/23 19:07 PFSH Acute PFSH: Medical History Acute cystitis Asthma Benign tumor of pituitary gland Constipation, chronic Psychiatric care Seasonal allergies Seizures Vitamin D deficiency Surgical History History of tonsillectomy and adenoidectomy Hx of hernia repair Family History Father Heart disease Social History Smoking and tobacco status: current every day smoker smokeless tobacco Smokeless tobacco user: chewing tobacco Smokeless tobacco details: One can/Day Quit status (tobacco): not considering quitting Second hand smoke exposure: No Smoking risk assessment/counseling performed?: No Alcohol intake: never Desire information about alcohol rehabilitation?: No Counseling given: No Substance/Drug Use: never Desire information about substance/drug rehabilitation?: No Counseling given: No Caregiver/support person: No Lives independently: No Household members: family Marital status: Single service: No Current occupational status: disabled Current gender identity: Male Vitals/I&O/Wt Last Vital Signs Temp 98.5 F 03/16/23 19:01 Pulse 114 H 03/16/23 22:16 Resp 18 03/16/23 22:16 BP 139/95 03/16/23 22:16 Pulse Ox 97 03/16/23 22:16 O2 Del Method Room Air 03/16/23 22:16 03/16/23 03/16/23 03/16/23 06:59 14:59 22:59 Intake Total 1000 / 1000 Balance 1000 / 1000 Weight last 48 hrs Weight 58.967 kg Physical Exam Const: COMMON NORMALS: no acute distress ORIENTATION/CONSCIOUSNESS: Yes awake, Yes oriented to person and Yes confused; not oriented to place and not oriented to time Eye: OTHER: Pupils dilated, reactive to light Neck/C-Spine: COMMON NORMALS: full ROM and no lymphadenopathy Resp: COMMON NORMALS: normal respiratory effort, No retractions, No use of accessory muscles and clear to auscultation bilaterally AUSCULTATION: clear to auscultation bilaterally Cardio: COMMON NORMALS: regular rate, regular rhythm, S1 normal heart sound present and S2 normal heart sound present RATE: regular rate RHYTHM: regular rhythm HEART SOUNDS: S1 normal heart sound present and S2 normal heart sound present GI: COMMON NORMALS: Normal to inspection, nondistended, normoactive bowel sounds present, Soft to palpation and non-tender : COMMON NORMALS: Yes no CVA tenderness Extremity: COMMON NORMALS: no pedal edema Neuro: COMMON NORMALS: CN's II-XII intact bilaterally, moves all extremities and no focal motor deficits OTHER: Difficult to follow neurologic testing Data 03/16/23 19:09 03/16/23 19:09 A&P Assessment and plan (1) Breakthrough seizure: (2) Anemia: (3) Urinary tract infection: Qualifiers: Hematuria presence: with hematuria Urinary tract infection type: acute cystitis Qualified Code(s): N30.01 - Acute cystitis with hematuria (4) Generalized weakness: Plan Breakthrough seizures -Seizure precautions -Continue home Depakote -Start Keppra 500 mg twice daily IV for now UTI, follow urine cultures, Rocephin Dehydration, IV fluids Anemia, iron, ferritin, B12, Hemoccult stool,, TIBC Generalized weakness, PT OT, speech therapy eval Weakness, x-ray pelvis, x-ray lumbar spine Full code CTs reviewed prophylaxis, Lovenox relatively contraindicated given anemia Attestations Medical Necessity Statement*: Patient requires hospitalization due to breakthrough seizures, generalized weakness, UTI, hypokalemia, anemia, inpatient, greater than 2 midnights Diagnoses Breakthrough seizure G40.919 Anemia D64.9 Urinary tract infection N30.01 Hematuria presence: with hematuria Urinary tract infection type: acute cystitis Generalized weakness R53.1
--- NOTE | 2023-03-16 22:46 | XRR_ITS ---
PROCEDURE INFORMATION: Exam: XR Bilateral Hips Exam date and time: 03/16/2023 10:53 PM Age: 22 years old Clinical indication: Injury or trauma; Blunt trauma (contusions or hematomas); Bilateral; Pelvic region; Prior surgery; Surgery date: 6+ months; Surgery type: Hernia repair; Patient HX: Recent fall. C/O low back and pelvic pain. TECHNIQUE: Imaging protocol: Radiologic exam of the bilateral hips. Views: 2 views of hips with pelvis when performed. COMPARISON: CT kidney stone [id number] 10/18/2019 9:07 AM FINDINGS: Bones/joints: The sacroiliac joints and pubic symphysis are congruent. Sclerosis of the weight-bearing portion of the left femoral head with curvilinear lucency. Mild osteoarthrosis of the left hip. Soft tissues: Unremarkable. XR/XR hip BI 2V wo/w pel [id number] IMPRESSION: 1. Sclerosis and curvilinear lucency involving the weight-bearing portion of the left femoral head, suspicious for avascular necrosis with subchondral fracture . 2. Mild left hip osteoarthrosis.
--- NOTE | 2023-03-16 22:46 | XRR_ITS ---
PROCEDURE INFORMATION: Exam: XR Lumbosacral Spine Exam date and time: 03/16/2023 11:02 PM Age: 22 years old Clinical indication: Injury or trauma; Blunt trauma (contusions or hematomas); Prior surgery; Surgery date: 6+ months; Surgery type: Hernia repair; Patient HX: Recent fall. C/O low back and pelvic pain. TECHNIQUE: Imaging protocol: Radiologic exam of the lumbosacral spine. Views: 2 or 3 views. COMPARISON: CR XR hip BI 2V wo/w pel [id number] 03/16/2023 10:53 PM FINDINGS: Bones/joints: There are 5 lumbar type vertebral bodies. No acute fracture or malalignment of the lumbosacral spine. Vertebral body heights are maintained. Normal vertebral alignment. The sacroiliac joints are congruent.. Soft tissues: Unremarkable. XR/XR lumbar spine 2-3V* [id number] IMPRESSION: No acute osseous abnormality of the lumbosacral spine.
[2023-03-16] MEDS: sodium chloride 0.9% 1,000 ML 100 ML IV (23:09)
[2023-03-16] MEDS: pantoprazole 40 mg SDV IVP (23:12)
[2023-03-16 23:18] LABS: Procalcitonin 0.09 ng/mL (0-0.5); T3 Free 1.6 PG/ML (2.0-4.4)
[2023-03-16 23:28] LABS: C Reactive Protein 55.3 mg/L (0.0-4.9)
[2023-03-16] MEDS: cefTRIAXone 1,000 MG in sodium chloride 0.9% (plus) 50 ML 100 MG IV (23:34)
[2023-03-16 23:45] LABS: INR 1.11 (0.8-1.2)
[2023-03-17] VITALS (17 sets, daily range): BP systolic 122–144; BP diastolic 76–88; PULSE 103–123; RESP 15–20; TEMP 36.2–36.8; O2SAT 96–98
[2023-03-17 00:23] LABS: Ferritin 556 ng/mL (30-400); Iron 40 ug/dL (59-158); Percent Saturation 17.6 % (20-50); Total Iron Binding Capacity 227 mcg/dl; Unsaturated Iron Binding 187 ug/dL (112-347)
[2023-03-17 04:56] LABS: Lymphocytes # 0.6 10^3/uL (0.8-4.8); Lymphocytes % 14.3 %; Mean Corpuscular HGB Conc 33.5 g/dL (30-55); Mean Corpuscular Hemoglobin 30.8 pg (27-33); Mean Platelet Volume 10.4 fL (7.4-10.4); Monocytes # 0.1 10^3/uL (0.2-0.9); Neutrophils # 3.27 10^3/uL (1.8-7.7); Neutrophils % 81.7 %; Nucleated Red Blood Cells % 0 %; Platelet Count 86 10^3/cmm (157-399); Red Blood Count 2.24 10^6/uL (3.85-5.65); Red Cell Distribution Width 13.8 % (12.1-15.1)
[2023-03-17 05:11] LABS: Anion Gap 15.2 (5-19); Blood Urea Nitrogen 11 mg/dL (6-20); Calcium 8.9 mg/dL (8.5-10.5); Carbon Dioxide 26 mmol/L (22-29); Chloride 94 mmol/L (98-107); Glomerular Filtration Rate 204.3 mL/min (90-130); Glucose 78 mg/dL (65-115); Magnesium 1.6 mg/dL (1.7-2.3); Osmolality Calculated 272 mOsm/kg (285-295); Potassium 3.2 mmol/L (3.5-5.1); Sodium 132 mmol/L (136-145)
[2023-03-17 05:15] LABS: Hematocrit 20.6 % (37-53)
[2023-03-17] MEDS: potassium chloride ER 20 mEq Tablet 40 MEQ PO (05:46)
[2023-03-17] MEDS: divalproex DR 500 mg Tablet PO (05:46)
[2023-03-17] MEDS: sertraline 100 mg Tablet PO (05:46)
[2023-03-17] MEDS: levothyroxine 75 mcg Tablet PO (08:29)
[2023-03-17] MEDS: sodium chloride 0.9% 1,000 ML 100 ML IV (08:30)
--- NOTE | 2023-03-17 11:22 | PM.PN ---
Subjective Subjective: Patient transfused 1 pRBC early this morning. He denies additional seizures since admission. Denies fevers, chills, nausea, or emesis. Repeatedly requests to go home. No family bedside. Medications: Reviewed: Yes Vitals/I&O/Wt Last Vital Signs Temp 97.6 F 03/17/23 10:20 Pulse 112 H 03/17/23 10:20 Resp 16 03/17/23 10:20 BP 138/82 03/17/23 10:20 Pulse Ox 97 03/17/23 10:20 O2 Del Method Room Air 03/17/23 08:05 FiO2 21 03/17/23 00:15 03/16/23 03/17/23 03/17/23 22:59 06:59 14:59 Intake Total 1000 / 1000 215 / 1215 1283.333 / 1283.333 Balance 1000 / 1000 215 / 1215 1283.333 / 1283.333 Weight last 48 hrs Weight 58.967 kg Physical Exam Narrative: General: Patient is awake. Head: Normocephalic. Atraumatic. EOM intact. Neck: No JVD. Cardiovascular: No gallops. No murmurs. Lungs: Clear to auscultation, no use of accessory muscles, no crackles or wheezes. Skin: No jaundice. No rashes. Abdomen: Normal bowel sounds, abdomen soft and nontender. Extremities: No cyanosis or clubbing. Musculoskeletal:No erythematous joints. Neurological: Moves all 4 extremities. No myoclonus. Poverty of words. Data 03/17/23 11:00 03/17/23 04:20 A&P Assessment and plan (1) Breakthrough seizure: History of seizure disorder On Depakote Started on Keppra, continue for now Seizure precautions Neurology consult given blood counts (2) Urinary tract infection: Urine culture pending Continue ceftriaxone Qualifiers: Hematuria presence: with hematuria Urinary tract infection type: acute cystitis Qualified Code(s): N30.01 - Acute cystitis with hematuria (3) Bicytopenia: Recent leukopenia, now w/ anemia and thrombocytopenia Tranfusing 1 pRBC this morning, follow up post transfusion H&H Emperic PPI Trend Follow up anemia labs (4) Hypokalemia: Status post replacement Check Mg Continue to monitor (5) Generalized weakness: Treat underlying infection Tranfusing Supportive care (6) Asthma: Not in acute exacerbation Qualifiers: Asthma severity: unspecified severity Asthma persistence: unspecified Asthma complication type: unspecified Qualified Code(s): J45.909 - Unspecified asthma, uncomplicated (7) Hypothyroid: Continue Synthroid (8) Intellectual disability: Suspect mentation is close to baseline Continue to monitor Plan DVT ppx: SCD Code Status: Full Code Attestations Medical Necessity Statement*: Patient requires ongoing hospitalization for blood transfusion, IV fluids, IV antibiotics, IV AEDs, IV PPI, and supportive care. Coding Level of Care Code Acute Code for Chg Fwd Diagnoses Breakthrough seizure G40.919 Urinary tract infection N30.01 Hematuria presence: with hematuria Urinary tract infection type: acute cystitis Bicytopenia D75.89 Hypokalemia E87.6 Generalized weakness R53.1 Asthma J45.909 Asthma severity: unspecified severity Asthma persistence: unspecified Asthma complication type: unspecified Hypothyroid E03.9 Intellectual disability F79
--- NOTE | 2023-03-17 14:02 | PM.CONSULT ---
Providers/Reason For Consult Consulting Physician/Specialty*: Tom Sánchez MD neurology and epilepsy Reason for Consult*: Intractable epilepsy with recurrent seizures Attending Physician: Maxx Baird MD Primary Care Provider: SPENSER Quezada History of Present Illness History of Present Illness Hussein Man is a 22 year old male who is mentally challenged with developmental delay. Patient has a history of intractable epilepsy treated with Depakote. Patient admitted with recurrent seizures and urinary tract infection. Patient was also observed to have thrombocytopenia of unclear etiology but possibility of Depakote causing the low platelet count is of concern. Patient was apparently started on Keppra and neurology/epilepsy consult was obtained to assist in the patient's care. The patient is currently alert and in no apparent distress. He is currently receiving IV blood. Patient is poor historian and unable to give any details with regards to his epilepsy. His mother nor any other family member was present at the patient's bedside. The patient reports a history of chronic weakness. He denies pain, headaches, swallowing difficulty, chest pain shortness of breath or abdominal pain or visual difficulty. Past medical history: Intractable epilepsy Urinary tract infection Generalized weakness Developmental delay Home medications: Depakote ER 500 mg p.o. every morning Zyrtec 10 mg p.o. every morning Flonase nasal spray 1 inhalation 4 times a day as needed Tylenol elixir 1000 mg p.o. every 6 hours as needed for pain Albuterol multidose inhaler 90 mcg per accusation 1 puff every 4 hours as needed Synthroid 75 mcg p.o. daily Singulair 10 mg p.o. daily Zoloft 100 mg p.o. every morning Trazodone 100 mg p.o. nightly as needed for sleep Drug allergies: None Habits: Unknown Family history: Unknown Social history: The patient reports that he lives with his mother, father and a brother Review of Systems General: Reports: 10 or more systems reviewed and unremarkable except in HPI and below Medications/Allergies Home Medications Medication Instructions Recorded Confirmed Last Taken Type albuterol sulfate 90 mcg/actuation 1 inh inhalation QID PRN Shortness 11/12/21 03/17/23 Unknown History aerosol inhaler (ProAir HFA) Of Breath divalproex 500 mg tablet,delayed 500 mg PO QAM 12/13/21 03/17/23 03/16/23 History release (Depakote) triamcinolone acetonide 0.1 % 1 applic topical BID 14 days #80 02/19/23 03/17/23 Unknown Rx topical cream grams acetaminophen 500 mg tablet 1,000 mg PO Q6H PRN Pain 03/03/23 03/17/23 Unknown History cetirizine 10 mg tablet 10 mg PO QAM 03/03/23 03/17/23 03/16/23 History fluticasone propionate 50 2 spray intranasal DAILY PRN 03/03/23 03/17/23 Unknown History mcg/actuation nasal Allergy Symptoms spray,suspension (Flonase Allergy Relief) montelukast 10 mg tablet 10 mg PO BEDTIME 03/03/23 03/17/23 03/16/23 History sertraline 100 mg tablet 100 mg PO QAM 03/03/23 03/17/23 03/16/23 History trazodone 50 mg tablet 100 mg PO BEDTIME PRN insomnia 03/03/23 03/17/23 Unknown History levothyroxine 75 mcg tablet 75 mcg PO DAILY #30 tabs 03/10/23 03/17/23 03/16/23 Rx Allergies Allergy/AdvReac Type Severity Reaction Status Date / Time No Known Allergies Allergy Verified 03/16/23 19:07 Current Medications Generic Name Dose Route Start Last Admin Trade Name Ad PRN Reason Stop Dose Admin Divalproex Sodium 500 mg 03/17/23 06:00 03/17/23 05:[address] 500 Mg Tablet PO 500 mg QAM BUD Administration Ceftriaxone Sodium 1,000 mg/ 50 mls @ 100 mls/hr 03/16/23 22:30 03/17/23 00:02 Sodium Chloride IV Infused Q24H BUD Infusion Protocol Levetiracetam 500 mg/ Sodium 105 mls @ 420 mls/hr 03/17/23 12:15 03/17/23 13:23 Chloride IV Infused Q12H BUD Infusion Levothyroxine Sodium 75 mcg 03/17/23 09:00 03/17/23 08:29 Levothyroxine 75 Mcg Tablet PO 75 mcg DAILY BUD Administration Sertraline HCl 100 mg 03/17/23 06:00 03/17/23 05:46 Sertraline 100 Mg Tablet PO 100 mg QAM BUD Administration PFSH Acute PFSH: Medical History (Updated 03/17/23 @ 14:13 by Tom Sánchez MD) Acute cystitis Allergic rhinitis Anxiety Asthma Benign tumor of pituitary gland Bilateral foot pain Chest pain Constipation, chronic Difficulty swallowing Encounter for screening for COVID-19 Gross hematuria Hallux valgus (acquired) Hearing loss in left ear Hemoptysis Hyperglycemia Lt inguinal pain Mid back pain on left side Muscle cramps Psychiatric care Seasonal allergies Seizures Urinary incontinence Vitamin B12 deficiency Vitamin D deficiency Surgical History History of tonsillectomy and adenoidectomy Hx of hernia repair Family History Father Heart disease Social History Smoking and tobacco status: current every day smoker smokeless tobacco Smokeless tobacco user: chewing tobacco Smokeless tobacco details: One can/Day Quit status (tobacco): not considering quitting Second hand smoke exposure: No Smoking risk assessment/counseling performed?: No Alcohol intake: never Desire information about alcohol rehabilitation?: No Counseling given: No Substance/Drug Use: never Desire information about substance/drug rehabilitation?: No Counseling given: No Caregiver/support person: No Lives independently: No Household members: family Marital status: Single service: No Current occupational status: disabled Current gender identity: Male Vitals/I&O/Wt Last Vital Signs Temp 98.1 F 03/17/23 11:30 Pulse 107 H 03/17/23 11:30 Resp 18 03/17/23 11:30 BP 127/80 03/17/23 11:30 Pulse Ox 96 03/17/23 11:30 O2 Del Method Room Air 03/17/23 11:30 FiO2 21 03/17/23 00:15 03/16/23 03/17/23 03/17/23 22:59 06:59 14:59 Intake Total 1000 / 1000 215 / 1215 1388.333 / 1388.333 Balance 1000 / 1000 215 / 1215 1388.333 / 1388.333 Weight last 48 hrs Weight 130 lb Physical Exam Narrative: The patient is alert and oriented to person. He was in no apparent distress. Patient displays some intellectual disability. Patient does follow commands. Head atraumatic. Neck supple. Cranial nerves II through XII grossly intact. Pupils 4 mm. Pupils equal round and reactive to light and accommodation. Extraocular movements intact. Motor examination revealed left lower extremity weakness. Patient is able to move the left leg but had trouble lifting it against gravity. Patient able to lift all the other extremities against gravity. The patient reports that this is chronic. Sensory examination intact to gross modalities. Plantar responses flexor bilaterally. Throat clear. Lungs clear. Heart regular rhythm and rate. Extremities were negative for clubbing or cyanosis. Data 03/17/23 11:00 03/17/23 04:20 A&P Assessment and plan (1) Intractable epilepsy: Impression: 1. Intractable epilepsy with reports of recurrent seizures on 03/16/2023 2. Developmental delay with intellectual disability 3. Thrombocytopenia etiology unclear. Must consider thrombocytopenia being related to Depakote Plan: 1. Agree with discontinuing Depakote 2. Agree with using Keppra IV 500 mg twice daily 3. Trough Keppra level in a.m. 4. Monitor platelets 5. Seizure precautions 6. Ativan 1 mg IV every 6 hours as needed seizures Consult Attestations Medical Necessity Statement: Patient evaluated by neurology for history of intractable epilepsy and recurrent seizures Coding Level of Care Code 48950 Diagnoses Intractable epilepsy G40.919
--- NOTE | 2023-03-17 15:48 | PC.NURSE ---
This nurse and CRAFT RECRUITER, Login K, have offered to change pt to gown throughout shift and pt refuses. Pt has refused attempts to change brief throughout the day but allowed Login to change him at approximately 1535.
[2023-03-17] MEDS: magnesium sulfate premix 2 GM/50 ML PIGGYBACK IV (15:53)
[2023-03-17] MEDS: pantoprazole 40 mg SDV IVP (16:08)
[2023-03-17] MEDS: cefTRIAXone 1,000 MG in sodium chloride 0.9% (plus) 50 ML 100 MG IV (21:56)
[2023-03-18] MEDS: pantoprazole 40 mg SDV IVP (01:19)
[2023-03-18 04:12] VITALS: BP 132/83; PULSE 100; RESP 16; TEMP 36.8; O2SAT 98
[2023-03-18 05:30] LABS: Eosinophils % 0.2 %; Hematocrit 26.6 % (37-53); Lymphocytes # 0.7 10^3/uL (0.8-4.8); Lymphocytes % 16.1 %; Mean Corpuscular HGB Conc 33.5 g/dL (30-55); Mean Corpuscular Volume 89.6 fl (82-101); Mean Platelet Volume 9.9 fL (7.4-10.4); Monocytes # 0.2 10^3/uL (0.2-0.9); Neutrophils # 3.34 10^3/uL (1.8-7.7); Neutrophils % 78.1 %; Nucleated Red Blood Cells % 0 %; Platelet Count 65 10^3/cmm (157-399); Red Blood Count 2.97 10^6/uL (3.85-5.65); Red Cell Distribution Width 13.6 % (12.1-15.1); White Blood Count 4.28 10^3/uL (3.29-11.43)
[2023-03-18] MEDS: sertraline 100 mg Tablet PO (05:39)
[2023-03-18 05:51] LABS: Alanine Aminotransferase 15 U/L (0-41); Albumin Level 3.6 g/dL (3.5-5.2); Alkaline Phosphatase 56 U/L (40-130); Anion Gap 16.6 (5-19); Aspartate Amino Transferase 17 U/L (0-40); Blood Urea Nitrogen 7 mg/dL (6-20); Calcium 9.5 mg/dL (8.5-10.5); Carbon Dioxide 27 mmol/L (22-29); Chloride 95 mmol/L (98-107); Globulin 2.9 g/dL (1.3-4.6); Glomerular Filtration Rate 165.5 mL/min (90-130); Glucose 88 mg/dL (65-115); Magnesium 1.5 mg/dL (1.7-2.3); Osmolality Calculated 277 mOsm/kg (285-295); Phosphorus 3.3 mg/dL (2.5-4.5); Potassium 3.6 mmol/L (3.5-5.1); Sodium 135 mmol/L (136-145); Total Bilirubin 0.6 mg/dL (0.15-1.2); Total Protein 6.5 g/dL (6.6-8.7)
[2023-03-18 06:00] VITALS: PULSE 83
[2023-03-18 07:48] VITALS: BP 134/86; PULSE 96; RESP 20; TEMP 36.1; O2SAT 100
[2023-03-18 08:00] VITALS: PULSE 100; RESP 16; O2SAT 98
--- NOTE | 2023-03-18 08:41 | PM.PN ---
Subjective Subjective: History of Present Illness Hussein Man is a 22 year old male who is mentally challenged with developmental delay.? Patient has a history of intractable epilepsy treated with Depakote.? Patient admitted with recurrent seizures and urinary tract infection.? Patient was also observed to have thrombocytopenia of unclear etiology but possibility of Depakote causing the low platelet count is of concern.? Patient was apparently started on Keppra and neurology/epilepsy consult was obtained to assist in the patient's care.? The patient is currently alert and in no apparent distress.? He is currently receiving IV blood.? Patient is poor historian and unable to give any details with regards to his epilepsy.? His mother nor any other family member was present at the patient's bedside.? The patient reports a history of chronic weakness.? He denies pain, headaches, swallowing difficulty, chest pain shortness of breath or abdominal pain or visual difficulty. Past medical history: Intractable epilepsy Urinary tract infection Generalized weakness Developmental delay Home medications: Depakote ER 500 mg p.o. every morning Zyrtec 10 mg p.o. every morning Flonase nasal spray 1 inhalation 4 times a day as needed Tylenol elixir 1000 mg p.o. every 6 hours as needed for pain Albuterol multidose inhaler 90 mcg per accusation 1 puff every 4 hours as needed Synthroid 75 mcg p.o. daily Singulair 10 mg p.o. daily Zoloft 100 mg p.o. every morning Trazodone 100 mg p.o. nightly as needed for sleep Drug allergies: None Habits: Unknown Family history: Unknown Social history: The patient reports that he lives with his mother, father and a brother Review of Systems General:?? Reports: 10 or mor e systems reviewed and unremarkable except in HPI and below Vitals/I&O/Wt Last Vital Signs Temp 96.9 F L 03/18/23 07:48 Pulse 96 03/18/23 07:48 Resp 20 H 03/18/23 07:48 BP 134/86 03/18/23 07:48 Pulse Ox 100 03/18/23 07:48 O2 Del Method Room Air 03/18/23 07:48 FiO2 21 03/17/23 00:15 03/17/23 03/18/23 03/18/23 22:59 06:59 14:59 Intake Total 155 / 1745.000 50 / 1795.000 Balance 155 / 1745.000 50 / 1795.000 Weight last 48 hrs Weight 130 lb Physical Exam Narrative: The patient is alert and oriented to person.? He was in no apparent distress.? Patient displays some intellectual disability.? Patient does follow commands.? Head atraumatic.? Neck supple.? Cranial nerves II through XII grossly intact.? Pupils 4 mm.? Pupils equal round and reactive to light and accommodation.? Extraocular movements intact.? Motor examination revealed left lower extremity weakness.? Patient is able to move the left leg but had trouble lifting it against gravity.? Patient able to lift all the other extremities against gravity.? The patient reports that this is chronic.? Sensory examination intact to gross modalities.? Plantar responses flexor bilaterally.? Throat clear.? Lungs clear.? Heart regular rhythm and rate.? Extremities were negative for clubbing or cyanosis. Data 03/18/23 05:21 03/18/23 05:21 A&P Assessment and plan (1) Intractable epilepsy: Impression: 1.? Intractable epilepsy with reports of recurrent seizures on 03/16/2023 2.? Developmental delay with intellectual disability 3.? Thrombocytopenia etiology unclear.? Must consider thrombocytopenia being related to Depakote 4. Anemia and thrombocytopenia status post blood transfusion on 03/17/2023 Plan: 1. Please schedule patient for outpatient surface EEG recording for 42 minutes to assess for subclinical seizure activity following medication change from Depakote to Keppra 2. Awaiting trough Keppra level 3. Okay to change Keppra from IV to oral Keppra at 500 mg p.o. twice daily 4. Will adjust Keppra as needed/tolerated 5. Continue seizure precautions per state law 6. Please schedule patient for follow-up in the [facility] neurology clinic 2 weeks after discharge 7. Please prescribe Valium nasal spray (Valtoco) 5 mg per 0.1 mL 1 spray in 1 nostril as needed for seizures may repeat x1 in 4 hours if needed for breakthrough seizures 8. Patient stable from neurological standpoint for discharge planning Attestations Medical Necessity Statement*: Patient evaluated by neurology for intractable epilepsy and thrombocytopenia most likely related to Depakote Coding Level of Care Code 60809 Diagnoses Intractable epilepsy G40.919
--- NOTE | 2023-03-18 09:10 | P.PN_ITS ---
Subjective Subjective: Patient denies further seizures since admission. Poverty of words persist. Repeatedly asks to go home. Attempted to discuss medical treatment plan. Health literacy appears quite limited. Medications: Reviewed: Yes Vitals/I&O/Wt Last Vital Signs Temp 96.9 F L 03/18/23 07:48 Pulse 96 03/18/23 07:48 Resp 20 H 03/18/23 07:48 BP 134/86 03/18/23 07:48 Pulse Ox 100 03/18/23 07:48 O2 Del Method Room Air 03/18/23 07:48 FiO2 21 03/17/23 00:15 03/17/23 03/18/23 03/18/23 22:59 06:59 14:59 Intake Total 155 / 1745.000 50 / 1795.000 Balance 155 / 1745.000 50 / 1795.000 Weight last 48 hrs Weight 58.967 kg Physical Exam Narrative: General: Patient is awake. Alert. Head: EOM intact. Neck: No JVD. Cardiovascular: No gallops. No murmurs. Lungs: Clear to auscultation, no use of accessory muscles, no crackles or whe ezes. Skin: No jaundice. No rashes. Abdomen: Normal bowel sounds, abdomen soft and nontender. Extremities: No cyanosis or clubbing. Musculoskeletal:No erythematous joints. Neurological: Moves all 4 extremities. No myoclonus. Poverty of words, unchanged. Data 03/18/23 05:21 03/18/23 05:21 A&P Assessment and plan (1) Bicytopenia: Suspected 2/2 Depakote versus infection Platelets continue to downtrend, continue to monitor HGB may have stabalized post transfusion, continue to monitor Emperic PPI (2) Breakthrough seizure: History of seizure disorder Neurology following, appreciate recommendations Off Depakote d/t concern for marrow SE Rotate to oral Keppra Level pending Neurology follow up w/ EEG as outpt (3) Urinary tract infection: Hx of E coli UTI Continue ceftriaxone Qualifiers: Hematuria presence: with hematuria Urinary tract infection type: acute cystitis Qualified Code(s): N30.01 - Acute cystitis with hematuria (4) Hypokalemia: Status post replacement (5) Generalized weakness: Improving w/ treatment (6) Asthma: Not in acute exacerbation Qualifiers: Asthma severity: unspecified severity Asthma persistence: unspecified Asthma complication type: unspecified Qualified Code(s): J45.909 - Unspecified asthma, uncomplicated (7) Hypothyroid: Continue Synthroid (8) Intellectual disability: Mentation appears to be at baseline Plan DVT ppx: SCD Code Status: Full Code Attestations Medical Necessity Statement*: Patient requires ongoing hospitalization due to worsening thrombocytopenia despite treatment, antibiotics, rotation of AEDs,PPI, and supportive care Coding Level of Care Code Acute Code for Chg Fwd Diagnoses Bicytopenia D75.89 Breakthrough seizure G40.919 Urinary tract infection N30.01 Hematuria presence: with hematuria Urinary tract infection type: acute cystitis Hypokalemia E87.6 Generalized weakness R53.1 Asthma J45.909 Asthma severity: unspecified severity Asthma persistence: unspecified Asthma complication type: unspecified Hypothyroid E03.9 Intellectual disability F79
[2023-03-18] MEDS: magnesium sulfate premix 2 GM/50 ML PIGGYBACK IV (09:51)
--- NOTE | 2023-03-18 12:36 | PC.OT ---
OT TREATMENT ATTEMPTED; OFFERED GROOMING; PATIENT GRUFFLY STATED, NO! . OFFERED ARM EXERCISES; PATIENT GRUFFLY STATED, NO, GO HOME!. OT TO ATTEMPT TREATMENT AGAIN IN P.M.
[2023-03-18 19:31] VITALS: BP 150/80; PULSE 97; RESP 18; TEMP 36.8; O2SAT 97
[2023-03-18 20:00] VITALS: PULSE 110; RESP 15; O2SAT 98
[2023-03-18] MEDS: cefdinir 300 MG CAPSULE PO (20:14)
[2023-03-18] MEDS: levETIRAcetam 1,000 mg/10 mL UDC 500 MG PO (20:14)
--- NOTE | 2023-03-18 22:18 | PC.NURSE ---
went in to check on pt and asked pt if I could check him and see if he was wet. Pt then yelled at me I am not wet! Josh GRANDE notified
[2023-03-19] VITALS: BP 150/60; PULSE 96; RESP 18; TEMP 36.4; O2SAT 96
[2023-03-19 04:55] VITALS: BP 133/60; PULSE 98; RESP 18; TEMP 37; O2SAT 97
--- NOTE | 2023-03-19 04:56 | PC.NURSE ---
Addendum entered by Gerri Larson 03/19/23 05:21: Josh and I changed pt around 0500 and pt was pleasant brief and gown was change Original Note: pt is wet and refuses for staff to change him. nurse is aware. pt has voided this shift
[2023-03-19 04:59] LABS: Basophils % 0.3 %; Hematocrit 25.9 % (37-53); Lymphocytes # 0.7 10^3/uL (0.8-4.8); Lymphocytes % 18.2 %; Mean Corpuscular HGB Conc 34.4 g/dL (30-55); Mean Corpuscular Hemoglobin 30.6 pg (27-33); Monocytes # 0.2 10^3/uL (0.2-0.9); Monocytes % 5.6 %; Neutrophils # 2.96 10^3/uL (1.8-7.7); Neutrophils % 74.6 %; Nucleated Red Blood Cells % 0 %; Platelet Count 77 10^3/cmm (157-399); Red Blood Count 2.91 10^6/uL (3.85-5.65); Red Cell Distribution Width 13.5 % (12.1-15.1); White Blood Count 3.96 10^3/uL (3.29-11.43)
[2023-03-19] MEDS: sertraline 100 mg Tablet PO (05:17)
[2023-03-19 05:25] LABS: Albumin Level 3.7 g/dL (3.5-5.2); Anion Gap 18.5 (5-19); Blood Urea Nitrogen 12 mg/dL (6-20); Calcium 9.5 mg/dL (8.5-10.5); Carbon Dioxide 26 mmol/L (22-29); Chloride 93 mmol/L (98-107); Glomerular Filtration Rate 165.5 mL/min (90-130); Glucose 89 mg/dL (65-115); Magnesium 1.5 mg/dL (1.7-2.3); Phosphorus 3.5 mg/dL (2.5-4.5); Potassium 3.5 mmol/L (3.5-5.1); Sodium 134 mmol/L (136-145)
[2023-03-19 08:00] VITALS: BP 147/89; PULSE 108; PULSE 110; RESP 16; RESP 19; TEMP 36.8; O2SAT 97; O2SAT 98
--- NOTE | 2023-03-19 08:33 | P.PN_ITS ---
Subjective Subjective: History of Present Illness History of Present Illness Hussein Man is a 22 year old male who is mentally challenged with developmental delay.? Patient has a history of intractable epilepsy treated with Depakote.? Patient admitted with recurrent seizures and urinary tract infection.? Patient was also observed to have thrombocytopenia of unclear etiology but possibility of Depakote causing the low platelet count is of concern.? Patient was apparently started on Keppra and neurology/epilepsy consult was obtained to assist in the patient's care.? The patient is currently alert and in no apparent distress.? He is currently receiving IV blood.? Patient is poor historian and unable to give any details with regards to his epilepsy.? His mother nor any other family member was present at the patient's bedside.? The patient reports a history of chronic weakness.? He denies pain, headaches, swallowing difficulty, chest pain shortness of breath or abdominal pain or v isual difficulty. During his hospitalization, Depakote was discontinued secondary to thrombocytopenia. Patient was started on IV Keppra. He has continued on IV Keppra 500 mg twice a day. Trough Keppra level pending. Patient was reported to have what was described as possible pseudoseizures on 1 where he was speaking with the nurse and told the nurse to, Watch this , and proceeded to have a spell with the nurse that is caring for the patient this morning could not give any further details. This morning the patient is alert and in no apparent distress and wants to go home. I tried to get more information from the patient regarding the episodes on 03/18/2023 but patient refused to talk about it and stated that he did not want to discuss it. Again patient asked to go home. He is alert and in no apparent distress. Past medical history: Intractable epilepsy Urinary tract infection Generalized weakness Developmental delay Current medications: IV Keppra 500 mg twice daily Zyrtec 10 mg p.o. every morning Flonase nasal spray 1 inhalation 4 times a day as needed Tylenol elixir 1000 mg p.o. every 6 hours as needed for pain Albuterol multidose inhaler 90 mcg per accusation 1 puff every 4 hours as needed Synthroid 75 mcg p.o. daily Singulair 10 mg p.o. daily Zoloft 100 mg p.o. every morning Trazodone 100 mg p.o. nightly as needed for sleep Drug allergies: Depakote which resulted in thrombocytopenia requiring blood transfusion Past medications: Depakote which resulted in thrombocytopenia Habits: Unknown Family history: Unknown Social history: The patient reports that he lives with his mother, father and a brother Review of Systems General:?? Reports: 10 or mor e systems reviewed and unremarkable except in HPI and below Vitals/I&O/Wt Last Vital Signs Temp 98.2 F 03/19/23 08:00 Pulse 108 H 03/19/23 08:00 Resp 19 H 03/19/23 08:00 BP 147/89 03/19/23 08:00 Pulse Ox 97 03/19/23 08:00 O2 Del Method Room Air 03/19/23 08:00 FiO2 21 03/17/23 00:15 03/18/23 03/19/23 03/19/23 22:59 06:59 14:59 Intake Total 170 / 170 120 / 290 Balance 170 / 170 120 / 290 Physical Exam Narrative: The patient is alert and oriented to person.? He was in no apparent distress.? Patient displays some intellectual disability.? Patient does follow commands.? Head atraumatic.? Neck supple.? Cranial nerves II through XII grossly intact.? Pupils 4 mm.? Pupils equal round and reactive to light and accommodation.? Extraocular movements intact.? Motor examination revealed left lower extremity weakness.? Patient is able to move the left leg but had trouble lifting it against gravity.? Patient able to lift all the other extremities against gr avity.? The patient reports that this is chronic.? Sensory examination intact to gross modalities.? Plantar responses flexor bilaterally.? Throat clear.? Lungs clear.? Heart regular rhythm and rate.? Extremities were negative for clubbing or cyanosis. Data 03/19/23 04:40 03/19/23 04:40 A&P Assessment and plan (1) Intractable epilepsy: (1) Intractable epilepsy: Impression: 1.? Intractable epilepsy with reports of recurrent seizures on 03/16/2023 1a. Possible pseudoseizures (nonepileptic event) on 03/18/2023 2.? Developmental delay with intellectual disability 3.? Thrombocytopenia etiology unclear.? Must consider thrombocytopenia being related to Depakote since platelet count appears to be improving since discontinuing Depakote 4.? Anemia and thrombocytopenia status post blood transfusion on 03/17/2023 Plan: 1.? Please schedule patient for outpatient surface EEG recording for 42 minutes to assess for subclinical seizure activity following medication change from Depakote to Keppra 2.? Awaiting trough Keppra level 3.? Okay to change Keppra from IV to oral Keppra at 500 mg p.o. twice daily 4.? Will adjust Keppra as needed/tolerated 5.? Continue seizure precautions per state law 6.? Please schedule patient for follow-up in the [facility] neurology clinic 2 weeks after discharge 7.? Please prescribe Valium nasal spray (Valtoco) 5 mg per 0.1 mL 1 spray in 1 nostril as needed for seizures may repeat x1 in 4 hours if needed for breakthrough seizures 8.? Patient stable from neurological standpoint for discharge planning Attestations Medical Necessity Statement*: Patient evaluated by neurology for seizures and history of epilepsy and thrombocytopenia on Depakote therefore patient also seen for anticonvulsant medication change Coding Level of Care Code 00236 Diagnoses Intractable epilepsy G40.919
[2023-03-19] MEDS: levETIRAcetam 1,000 mg/10 mL UDC 500 MG PO (08:45)
[2023-03-19] MEDS: levothyroxine 75 mcg Tablet PO (08:46)
[2023-03-19] MEDS: cefdinir 300 MG CAPSULE PO (08:46)
--- NOTE | 2023-03-19 09:44 | PM.DCS ---
Discharge Providers Date of Admission: 03/16/23 22:07 Date of Discharge: March 19, 2023 Attending Provider at Admission: Mateo Mackenzie MD Attending Provider at Discharge: Maxx Baird MD Consults: Neurology Primary Care Provider: SPENSER Quezada Diagnoses at Discharge Discharge Diagnosis (1) Intractable epilepsy: Status: Acute Reason for Visit Reason for Visit: SEIZURE Hospital Course Hospital Course Hussein Man is a 22-year-old male with a past medical history significant for seizure disorder, hypothyroidism, and developmental delay who presented with generalized weakness and breakthrough seizures, found to have urinary tract infection, breakthrough seizure, and bicytopenia. UTI was treated with ceftriaxone, and rotated to cefdinir. Neurology consulted for guidance on seizure management. Depakote discontinued and patient started on Keppra. He remained seizure-free. He will follow-up with neurology in clinic with EEG. Patient is not to operate machinery or drive until released by physician due to seizure disorder. Patient also found to have bicytopenia. He was noted to have leukopenia over the summer as well. He required a transfusion 1 packed red blood cell. Etiology of his bicytopenia felt to be secondary to Depakote. Depakote was discontinued. Blood counts started to show improvement afterwards. Patient would benefit from having his blood counts rechecked within 2 to 4 weeks. Patient has a history of developmental delay. He refused multiple aspects of his care. He was persistent to be discharged at every interaction. He was occasionally redirectable. His symptomatology improved. He was discharged home in stable condition. Physical Exam Narrative: General: Patient is awake.? Alert. No acute distress. Head:? EOM intact. Neck: No JVD. Cardiovascular: No gallops. No murmurs. Lungs: Clear to auscultation, no use of accessory muscles, no crackles or wheezes. Skin: No jaundice. No rashes. Abdomen: Normal bowel sounds, abdomen soft and nontender. Extremities: No cyanosis or clubbing. Musculoskeletal:No erythematous joints. Neurological: Moves all 4 extremities. No myoclonus.? Poverty of words. Discharge Data Studies Completed and Pending Completed Studies During Hospitalization Category Date Time Status CT head wo con* [id number] Stat Cat Scan 03/16/23 19:45 Completed XR chest 1V portable [id number] Stat Exams 03/16/23 19:45 Completed XR hip BI 2V wo/w pel [id number] Stat Exams 03/16/23 22:46 Completed XR lumbar spine 2-3V* [id number] Stat Exams 03/16/23 22:46 Completed Pending at discharge Category Date Time Status Occult Blood Stool [Immunochemical Fecal OCB] Routine Lab 03/16/23 22:30 Uncollected Radiology Impressions Chest X-Ray 03/16/23 19:45 IMPRESSION: No acute radiographic findings. Head CT 03/16/23 19:45 IMPRESSION: 1. No CT evidence of acute intracranial pathology. 2. Additional findings, as above. Hip/Pelvis X-Ray 03/16/23 22:46 IMPRESSION: 1. Sclerosis and curvilinear lucency involving the weight-bearing portion of the left femoral head, suspicious for avascular necrosis with subchondral fracture . 2. Mild left hip osteoarthrosis. Lumbar Spine X-Ray 03/16/23 22:46 IMPRESSION: No acute osseous abnormality of the lumbosacral spine. Laboratory Results WBC 3.96 10^3/uL (3.29-11.43) 03/19/23 04:40 RBC 2.91 10^6/uL (3.85-5.65) L 03/19/23 04:40 Hgb 8.90 g/dL (11.27-16.99) L 03/19/23 04:40 Hct 25.9 % (37-53) L 03/19/23 04:40 MCV 89.0 fl (82-101) 03/19/23 04:40 MCH 30.6 pg (27-33) 03/19/23 04:40 MCHC 34.4 g/dL (30-55) 03/19/23 04:40 RDW 13.5 % (12.1-15.1) 03/19/23 04:40 Plt Count 77 10^3/cmm (157-399) L 03/19/23 04:40 MPV 10.0 fL (7.4-10.4) 03/19/23 04:40 Neut % (Auto) 74.6 % 03/19/23 04:40 Lymph % (Auto) 18.2 % 03/19/23 04:40 Edgar % (Auto) 5.6 % 03/19/23 04:40 Eos % (Auto) 0.0 % 03/19/23 04:40 Baso % (Auto) 0.3 % 03/19/23 04:40 Neut # (Auto) 2.96 10^3/uL (1.8-7.7) 03/19/23 04:40 Lymph # (Auto) 0.7 10^3/uL (0.8-4.8) L 03/19/23 04:40 Edgar # (Auto) 0.2 10^3/uL (0.2-0.9) 03/19/23 04:40 Eos # (Auto) 0.0 10^3/uL (0.0-0.8) 03/19/23 04:40 Baso # (Auto) 0.0 10^3/uL (0.0-0.1) 03/19/23 04:40 Nucleated RBC % (auto) 0 % 03/19/23 04:40 Nucleated RBCs # 0.0 /100WBC 03/19/23 04:40 PT 14.70 SECONDS (12.1-14.9) 03/16/23 23:25 INR 1.11 (0.8-1.2) 03/16/23 23:25 Sodium 134 mmol/L (136-145) L 03/19/23 04:40 Potassium 3.5 mmol/L (3.5-5.1) 03/19/23 04:40 Chloride 93 mmol/L (98-107) L 03/19/23 04:40 Carbon Dioxide 26 mmol/L (22-29) 03/19/23 04:40 Anion Gap 18.5 (5-19) 03/19/23 04:40 BUN 12 mg/dL (6-20) 03/19/23 04:40 Creatinine 0.6 mg/dL (0.7-1.2) L 03/19/23 04:40 GFR Calculation 165.5 mL/min (90-130) H 03/19/23 04:40 Glucose 89 mg/dL (65-115) 03/19/23 04:40 Calculated Osmolality 277 mOsm/kg (285-295) L 03/18/23 05:21 Lactic Acid 1.0 mmol/L (0.5-2.2) 03/16/23 19:09 Calcium 9.5 mg/dL (8.5-10.5) 03/19/23 04:40 Phosphorus 3.5 mg/dL (2.5-4.5) 03/19/23 04:40 Magnesium 1.5 mg/dL (1.7-2.3) L 03/19/23 04:40 Iron 40 ug/dL (59-158) L 03/16/23 22:45 TIBC 227 mcg/dl 03/16/23 22:45 % Saturation 17.6 % (20-50) L 03/16/23 22:45 Unsat Iron Binding 187 ug/dL (112-347) 03/16/23 22:45 Ferritin 556 ng/mL (30-400) H 03/16/23 22:45 Total Bilirubin 0.6 mg/dL (0.15-1.2) 03/18/23 05:21 AST 17 U/L (0-40) 03/18/23 05:21 ALT 15 U/L (0-41) 03/18/23 05:21 Alkaline Phosphatase 56 U/L (40-130) 03/18/23 05:21 Creatine Kinase 13 U/L (39-308) L 03/16/23 19:09 C-Reactive Protein 55.3 mg/L (0.0-4.9) H 03/16/23 22:45 Total Protein 6.5 g/dL (6.6-8.7) L 03/18/23 05:21 Albumin 3.7 g/dL (3.5-5.2) 03/19/23 04:40 Globulin 2.9 g/dL (1.3-4.6) 03/18/23 05:21 Procalcitonin 0.09 ng/mL (0-0.5) 03/16/23 22:45 TSH 8.32 uIU/mL (0.27-4.20) H 03/16/23 19:09 Free T4 1.30 ng/dL (0.82-1.77) 03/16/23 22:45 Free T3 1.6 PG/ML (2.0-4.4) L 03/16/23 22:45 Urine Color Kaylan (Yellow) 03/16/23 20:48 Urine Appearance Clear (CLEAR) 03/16/23 20:48 Urine pH 5 (5-7) 03/16/23 20:48 Ur Specific Pompey 1.025 (1.005-1.030) 03/16/23 20:48 Urine Protein 1+ (Negative) H 03/16/23 20:48 Urine Glucose (UA) Norm (Normal) 03/16/23 20:48 Urine Ketones 3+ (Negative) H 03/16/23 20:48 Urine Blood Neg (Negative) 03/16/23 20:48 Urine Nitrate Negative (Negative) 03/16/23 20:48 Urine Bilirubin 1+ (Negative) H 03/16/23 20:48 Urine Urobilinogen 4 mg/dL (Negative) H 03/16/23 20:48 Ur Leukocyte Esterase Trace (Negative) H 03/16/23 20:48 Urine RBC 0-4 /hpf (0-2) H 03/16/23 20:48 Urine WBC 5-10 /hpf (0-5) H 03/16/23 20:48 Ur Squamous Epith Cells 0-4 /hpf (0-5) H 03/16/23 20:48 Amorphous Sediment 1+ /hpf 03/16/23 20:48 Urine Bacteria Trace /hpf (NONE) 03/16/23 20:48 Urine Mucus 3+ /hpf 03/16/23 20:48 Urine Opiates Screen Negative ng/mL (Negative) 03/16/23 20:48 Ur Barbiturates Screen Negative ng/mL (Negative) 03/16/23 20:48 Valproic Acid 110.1 ug/mL (50-100) H 03/16/23 19:09 Ur Phencyclidine Scrn Negative ng/mL (Negative) 03/16/23 20:48 Ur Amphetamines Screen Negative ng/mL (Negative) 03/16/23 20:48 U Benzodiazepines Scrn Positive ng/mL (Negative) H 03/16/23 20:48 Urine Cocaine Screen Negative ng/mL (Negative) 03/16/23 20:48 U Marijuana (THC) Screen Negative ng/mL (Negative) 03/16/23 20:48 Ethyl Alcohol < 10 mg/dL (0-10) 03/16/23 19:09 Blood Type O Positive 03/17/23 05:32 Rho(D) Type Positive 03/17/23 05:32 Antibody Screen Negative 03/17/23 05:32 Crossmatch See Detail 03/17/23 05:32 Vitals Last Vital Signs Temp 98.2 F 03/19/23 08:00 Pulse 108 H 03/19/23 08:00 Resp 19 H 03/19/23 08:00 BP 147/89 03/19/23 08:00 Pulse Ox 97 03/19/23 08:00 O2 Del Method Room Air 03/19/23 08:00 FiO2 21 03/17/23 00:15 Discharge Plan Discharge Patient Disposition: Home Condition: Stable Prescriptions: New cefdinir 300 mg Capsule 300 mg PO BID 5 Days Qty: 10 0RF levetiracetam 100 mg/mL Solution 500 mg PO BID 30 Days Qty: 300 1RF Valtoco 5 mg/spray (0.1 mL) spray,non-aerosol 5 mg intranasal Q4H PRN (Reason: Seizure) Qty: 2 0RF pantoprazole 40 mg tablet,delayed release (DR/EC) 40 mg PO DAILY Qty: 30 1RF Continued albuterol sulfate [ProAir HFA] 90 mcg/actuation HFA aerosol inhaler 1 inh inhalation QID PRN (Reason: Shortness Of Breath) triamcinolone acetonide 0.1 % cream 1 applic topical BID 14 Days Qty: 80 0RF levothyroxine 75 mcg tablet 75 mcg PO DAILY Qty: 30 2RF acetaminophen 500 mg Tablet 1,000 mg PO Q6H PRN (Reason: Pain) trazodone 50 mg tablet 100 mg PO BEDTIME PRN (Reason: insomnia) cetirizine 10 mg tablet 10 mg PO QAM sertraline 100 mg tablet 100 mg PO QAM montelukast 10 mg tablet 10 mg PO BEDTIME fluticasone propionate [Flonase Allergy Relief] 50 mcg/actuation spray,suspension 2 spray INTRANASAL DAILY PRN (Reason: Allergy Symptoms) Rx Instructions: administer into each nostril No Action divalproex [Depakote] 500 mg tablet,delayed release (DR/EC) 500 mg PO QAM Discharge Orders: Discharge Order (Routine); Ordered 03/19/23 Ordered By: Maxx Baird Other Ambulatory Orders: EEG electroencephalogram (Routine) Timeframe: 1 Week Facility: [facility] - Location: Neurology Ordered By: Maxx Baird Referrals: Tom Sánchez MD [Physician] - 2 weeks (Follow up with EEG. We have notified your physician's clinic of the need for a follow-up appointment to be scheduled. If you have not heard from them within the next 2 business days, please call them directly. You may also reach out to our reimbursement manager at [phone] and she can assist you.) Shima Larson FNP [Primary Care Provider] - 1-3 days (We have notified your physician's clinic of the need for a follow-up appointment to be scheduled. If you have not heard from them within the next 2 business days, please call them directly. You may also reach out to our reimbursement manager at [phone] and she can assist you.) Discharge Diet: Advance as tolerated and Usual diet Discharge Activity: Resume usual activity and Increase activity as tolerated Patient Instructions: Cefdinir (By mouth), Levetiracetam (By mouth), Diazepam (Into the nose), Epilepsy (GEN), Opioid Safety Activity Restrictions/Additional Instructions: 1. Take medications as prescribed. 2. Follow up for outpatient EEG. 3. Neurology follow up. 4. Follow up with PCP. 5. No driving or operating machinery until released by physician to do so. 6. Increase activity as tolerated. Discharge Attestations Time Spent in Discharge Care*: greater than 30 min Quality Metrics Clinical Quality Measures [ No reported AMI, CVA or VTE this stay] Coding Level of Care Code Acute Code for Chg Fwd Diagnoses Intractable epilepsy G40.919
--- NOTE | 2023-03-19 10:13 | PC.NURSE ---
Discharge awaiting transportation. Brother will be coming to pick pt up.
--- NOTE | 2023-03-19 11:07 | PC.NURSE ---
Patients mom called the floor and stated that nobody was able to come up and pick pt up following discharge from here. Ash notified to set up transport.
[2023-03-19 11:58] VITALS: BP 129/97; PULSE 130; RESP 18; TEMP 36.2; O2SAT 98
--- NOTE | 2023-03-19 14:09 | PC.NURSE ---
Patients clothes were soiled and he did not wish to take them with him. Pt wore watch out of hospital.
== END 2023-03-19 13:40 | disposition home or self-care (01) | DRG 101 ==
LOC: ER 20:42 → MEDSURG 22:52
PROVIDERS: Admitting Provider Family Medicine; Emergency Provider Emergency Medicine; PCP Nurse Practitioner Family; Visit Provider Internal Medicine
DX: G40.919 Epilepsy, unspecified, intractable, without status epilepticus (principal); N39.0 Urinary tract infection, site not specified; E03.9 Hypothyroidism, unspecified; F79 Unspecified intellectual disabilities; R31.9 Hematuria, unspecified; D69.59 Other secondary thrombocytopenia; T42.6X5A Adverse effect of other antiepileptic and sedative-hypnotic drugs, initial encounter; J45.909 Unspecified asthma, uncomplicated; K59.09 Other constipation; F17.220 Nicotine dependence, chewing tobacco, uncomplicated; Z91.81 History of falling; E86.0 Dehydration; E87.6 Hypokalemia; F41.9 Anxiety disorder, unspecified; H91.92 Unspecified hearing loss, left ear
CPT/HCPCS: 36415; 36430; 70450; 71045; 72100; 73521; 80048; 80053; 80069; 80164; 80306; 80307; 81001; 82550; 82728; 83540; 83550; 83605; 83735; 84100; 84145; 84439; 84443; 84481; 85014; 85018; 85025; 85610; 86140; 86850; 86900; 86920; 92526; 92610; 94664; 96365; 96367; 96375; 97161; 97165; 97530; 99285; C9113; G0378; J0696; J1953; J3475; J7030; P9016

== ENCOUNTER 2023-04-06 17:57 | Inpatient (IN) | payer MEDICAID, SELFPAY ==
[2023-04-06] VITALS (37 sets, daily range): BP systolic 72–130; BP diastolic 49–95; PULSE 119–143; RESP 12–25; TEMP 35.9; O2SAT 81–100; BMI 21.2
[2023-04-06 18:01] LABS: Glucose Point of Care 150 mg/dL (70-110)
--- NOTE | 2023-04-06 18:14 | CTR_ITS ---
PROCEDURE INFORMATION: Exam: CT Abdomen And Pelvis With Contrast Exam date and time: 04/06/2023 8:11 PM Age: 22 years old Clinical indication: Abnormal findings; Abnormal lab test; Elevated wbc; Patient HX: Vomiting with hypotension and hypothermia. Wbc of 17k. ; Additional info: AMS vomiting TECHNIQUE: Imaging protocol: Computed tomography of the abdomen and pelvis with contrast. Radiation optimization: All CT scans at this facility use at least one of these dose optimization techniques: automated exposure control; mA and/or kV adjustment per patient size (includes targeted exams where dose is matched to clinical indication); or iterative reconstruction. Contrast material: OMNI 350; Contrast volume: 75 ml; Contrast route: INTRAVENOUS (IV); REPORTING DATA: Count of CT and Cardiac NM exams in prior 12 months: This patient has received 2 known CTs and 0 known cardiac nuclear medicine studies in the 12 months prior to the current study. COMPARISON: CT kidney stone [id number] 10/18/2019 9:07 AM RADIATION DOSE METRICS: Total DLP (mGy-cm): 1417.01 FINDINGS: Lungs: Left lower lobe consolidation, favored to represent pneumonia such as aspiration related. Liver: The liver is normal in size. There are no enhancing liver masses. Gallbladder and bile ducts: No calcified gallstones are identified. There is no pericholecystic fluid. Pancreas: The pancreas is normal. Spleen: The spleen is normal in size and density. Adrenal glands: The adrenal glands are normal. Kidneys and ureters: There is no hydronephrosis. No renal or obstructive ureteral calculi are identified. Stomach and bowel: There is a whirl in the upper abdomen with mild partial small bowel obstruction suspicious for intermittent volvulus (10/22 - , 08/26 - ). Presently, there is gas and stool throughout the colon. Appendix: A normal appendix is identified. Intraperitoneal space: There is no free fluid or free air in the peritoneal cavity. Vasculature: There superior mesenteric artery and superior mesenteric vein are in the whirl but remain patent. There is no abdominal aortic aneurysm or dissection.The celiac trunk, SMA and MARYLOU are widely patent. No evidence of gas in the portal vein. Lymph nodes: No enlarged retroperitoneal or mesenteric lymph nodes. Urinary bladder: The bladder shows a normal contour and is free of calcific opacities. Reproductive: Unremarkable as visualized. Bones/joints: No acute fracture. Deformity and serpentine sclerosis of the femoral heads suspicious for osteonecrosis femoral heads. Presently there is partial collapse and otherwise nondisplaced fracture of the left femoral head. Soft tissues: Normal. CT/CT abdomen pelvis w con* [id number] IMPRESSION: 1. There is a whirl in the upper abdomen with mild partial small bowel obstruction suspicious for intermittent volvulus (10/22 - , 08/26 - ). 2. Left lower lobe consolidation, favored to represent pneumonia such as aspiration related. 3. Deformity and serpentine sclerosis of the femoral heads suspicious for osteonecrosis femoral heads. Presently there is partial collapse and otherwise nondisplaced fracture of the left femoral head.
--- NOTE | 2023-04-06 18:14 | CTR_ITS ---
PROCEDURE INFORMATION: Exam: CT Head Without Contrast Exam date and time: 04/06/2023 6:30 PM Age: 22 years old Clinical indication: Altered mental status/memory loss; Confusion or disorientation; Additional info: AMS TECHNIQUE: Imaging protocol: Computed tomography of the head without contrast. Radiation optimization: All CT scans at this facility use at least one of these dose optimization techniques: automated exposure control; mA and/or kV adjustment per patient size (includes targeted exams where dose is matched to clinical indication); or iterative reconstruction. REPORTING DATA: Count of CT and Cardiac NM exams in prior 12 months: This patient has received 2 known CTs and 0 known cardiac nuclear medicine studies in the 12 months prior to the current study. COMPARISON: CT head wo con* [id number] 03/16/2023 7:55 PM RADIATION DOSE METRICS: Total DLP (mGy-cm): 1013.18 FINDINGS: Brain: There is no evidence of intracranial hemorrhage. No mass effect or midline shift. No territorial edema. Unremarkable white matter. Cerebral ventricles: Mild cerebral and cerebellar volume loss and commensurate ventricular size, similar to prior examinations. Paranasal sinuses: There are no air-fluid levels. Mastoid air cells: The visualized mastoid air cells are well aerated. Bones/joints: No acute fracture. Soft tissues: Unremarkable. CT/CT head wo con* [id number] IMPRESSION: 1. No acute intracranial findings. 2. Additional findings as above.
--- NOTE | 2023-04-06 18:14 | XRR_ITS ---
PROCEDURE INFORMATION: Exam: XR Chest Exam date and time: 04/06/2023 6:33 PM Age: 22 years old Clinical indication: Device placement; Patient HX: AMS; Tachycardia; Central line placement TECHNIQUE: Imaging protocol: Radiologic exam of the chest. Views: 1 view. COMPARISON: CR (CHEST, ) 03/16/2023 8:07 PM FINDINGS: Tubes, catheters and devices: Interim placement of a right internal jugular central venous line with its tip in the superior vena cava, near the cavoatrial junction. EKG monitoring leads overlie the thoracic wall. Lungs: There is no consolidation. Pleural spaces: No pleural effusion or pneumothorax. Heart/Mediastinum: The heart and mediastinum are normal in size. Bones/joints: Unremarkable. XR/XR chest 1V portable [id number] IMPRESSION: 1. Interim placement of a right internal jugular central venous line with its tip in the superior vena cava. 2. No pneumothorax post procedure on this supine examination. Consider follow-up upright view of the chest. 3. No acute findings.
[2023-04-06] MEDS: sodium chloride 0.9% 1,000 ML 999 ML IV ×2 (18:22→20:59)
[2023-04-06] MEDS: ondansetron 2 mg/ML SDV 2 mL 4 MG IVP (18:28)
--- NOTE | 2023-04-06 18:28 | W.ED.AMS ---
HPI - Altered Mental Status General: Chief Complaint: Altered Mental Status Stated Complaint: WEAKNESS; AMS Time Seen by Provider: 04/06/23 18:14 Source: patient and EMS History of Present Illness: 22-year-old male with a history of seizure disorder, anemia, deconditioning. He was admitted on 03/16 for repetitive seizures and deconditioning. He went home a couple of days later. He presents today with continued deconditioning, vomiting, generalized weakness and altered mental status. He was evidently unresponsive when family called EMS. EMS found him to be in bed, minimally responsive, unobtainable blood pressure. According to his mother, he has not had any significant oral intake in several days. According to her, he refuses to get out of bed. The press setter on scene found his bed to be essentially decomposing under him. They found what they thought to be was coffee grounds in his bed from hematemesis. No coffee-ground's appear to be snuff. MD complaint: altered mental status, decreased responsiveness and weakness Review of Systems General: Reports: ROS unobtainable due to mental status Const: Denies: fever(s) ENMT: Reports: throat pain Card: Denies: chest pain GI: Reports: vomiting and coffee ground emesis (potentially); Denies: abdominal pain : Reports: dysuria Skin/Breast: Reports: rash PFSH ED PFSH: Medical History Acute cystitis Allergic rhinitis Anemia Anxiety Asthma Asthma Benign tumor of pituitary gland Bicytopenia Bilateral foot pain Chest pain Constipation, chronic Difficulty swallowing Encounter for screening for COVID-19 Generalized weakness Gross hematuria Hallux valgus (acquired) Hearing loss in left ear Hemoptysis Hyperglycemia Hypothyroid Intellectual disability Intractable epilepsy Lt inguinal pain Mid back pain on left side Muscle cramps Psychiatric care Seasonal allergies Seizures Urinary incontinence Vitamin B12 deficiency Vitamin D deficiency Surgical History History of tonsillectomy and adenoidectomy Hx of hernia repair Family History Father Heart disease Social History Smoking and tobacco/nicotine status: current every day tobacco/nicotine user smokeless tobacco Smokeless tobacco user: chewing tobacco Smokeless tobacco details: One can/Day Quit status (tobacco/nicotine): not considering quitting Second hand smoke exposure: No Alcohol intake: never Substance/Drug Use: never Caregiver/support person: No Lives independently: No Household members: family Marital status: Single service: No Current occupational status: disabled Current gender identity: Male Physical Exam Const: GENERAL APPEARANCE: lethargic, ill appearing and frail appearing ORIENTATION/CONSCIOUSNESS: Yes lethargic HENMT: COMMON NORMALS: atraumatic and Normal external nose present HEAD & SCALP: atraumatic FACE & SINUS: face symmetric NOSE: Normal external nose present Eye: COMMON NORMALS: Equal, round and reactive pupils present and EOMs intact bilaterally PUPIL: Yes Equal, round and reactive pupils present Neck/C-Spine: COMMON NORMALS: full ROM GENERAL: Yes trachea midline Chest: CHEST: Yes Symmetrical chest wall rise Resp: COMMON NORMALS: clear to auscultation bilaterally EFFORT & INSPECTION: Yes tachypneic AUSCULTATION: clear to auscultation bilaterally Cardio: COMMON NORMALS: regular rhythm RATE: tachycardic RHYTHM: regular rhythm GI: COMMON NORMALS: Soft to palpation PALPATION: Yes Soft to palpation Extremity: COMMON NORMALS: no pedal edema Neuro: MARITZA COMA SCALE: document GCS findings [place] coma scale eye opening: Spontaneous [place] coma scale verbal response: Confused [place] coma scale motor response: Obey commands [place] coma scale total score: 14 SENSORIUM/ORIENTATION: Yes lethargic Procedures Central Line Placement Right IJ: Time Out Performed: No Patient Placed on Monitor/Pulse Ox: Yes MD Prep: mask, gown and gloves Central Line Prep: Chlorhexidine scrub Local Anesthetic: lidocaine 1% Amount of anesthesia used (mL): 3 Ultrasound Used for Placement: Yes Central Line Lumen Inserted: triple Post Procedure: sutured in place, good blood return, all ports aspirated, flushed, capped and sterile dressing applied Post Procedure X-Ray: tip of catheter in good position and no pneumothorax seen Patient Tolerated Procedure: well and no complications Complications: none Course Vital Signs: Vital signs: Vital Signs Temperature 99.5 F 04/07/23 00:45 Pulse Rate 126 H 04/07/23 00:45 Respiratory Rate 19 H 04/07/23 00:45 Blood Pressure 111/78 10/30/23 00:45 Pulse Oximetry 97 04/07/23 00:45 Oxygen Delivery Me thod Nasal Cannula 04/07/23 00:45 Oxygen Flow Rate 2 04/07/23 00:45 MDM - Altered Mental Status Medical Decision Making Patient's blood pressure is improved. Norepinephrine did not have to be used. He has received a total of 3 L of fluid. Potassium is 2.5, potassium is added to his maintenance fluid at 40 mill equivalents per liter. White blood cell count is 17 with a hemoglobin of 10. There is likely some degree of hemoconcentration. CT of the head shows no acute findings. Chest x-ray shows placement of a right IJ in correct position without complication. Lactic acid is 4.7. CRP is 41. He is covered empirically with vancomycin and Zosyn. Urinalysis is negative. Tox screens are negative. Given history of vomiting, abdominal CT was ordered, and results are pending. Spoke with hospitalist. He will go to the ICU. His core temp was quite cold on arrival, 96. He is placed on a Sabina hugger, with a core temp now of 99.3. Bear hugger has been discontinued. Lab Data 04/06/23 19:52 04/06/23 19:52 Radiology Impressions Abdomen/Pelvis CT 04/06/23 18:14 IMPRESSION: 1. There is a whirl in the upper abdomen with mild partial small bowel obstruction suspicious for intermittent volvulus (10/22 - 27, 08/26 - 36). 2. Left lower lobe consolidation, favored to represent pneumonia such as aspiration related. 3. Deformity and serpentine sclerosis of the femoral heads suspicious for osteonecrosis femoral heads. Presently there is partial collapse and otherwise nondisplaced fracture of the left femoral head. ADDENDUM: 04/06/23 [id number] THIS REPORT CONTAINS FINDINGS THAT MAY BE CRITICAL TO PATIENT CARE. The findings were verbally communicated via telephone conference with MISSAEL MILLIGAN at 9:53 PM CDT on 04/06/2023. The findings were acknowledged and understood. Head CT 04/06/23 18:14 IMPRESSION: 1. No acute intracranial findings. 2. Additional findings as above. Chest X-Ray 04/06/23 22:57 IMPRESSION: Right internal jugular central venous line not significantly changed in position from the comparison study. The line appears kinked or acutely bent outside of the patient at the level of the dressing. Laboratory Results WBC 17.14 10^3/uL (3.29-11.43) H 04/06/23 19:52 RBC 3.20 10^6/uL (3.85-5.65) L 04/06/23 19:52 Hgb 10.00 g/dL (11.27-16.99) L 04/06/23 19:52 Hct 30.0 % (37-53) L 04/06/23 19:52 MCV 93.8 fl (82-101) 04/06/23 19:52 MCH 31.3 pg (27-33) 04/06/23 19:52 MCHC 33.3 g/dL (30-55) 04/06/23 19:52 RDW 16.9 % (12.1-15.1) H 04/06/23 19:52 Plt Count 263 10^3/cmm (157-399) 04/06/23 19:52 MPV 10.9 fL (7.4-10.4) H 04/06/23 19:52 Neut % (Auto) 91.1 % 04/06/23 19:52 Lymph % (Auto) 3.8 % 04/06/23 19:52 Tom[place]kins % (Auto) 4.2 % 04/06/23 19:52 Eos % (Auto) 0.1 % 04/06/23 19:52 Baso % (Auto) 0.2 % 04/06/23 19:52 Neut # (Auto) 15.62 10^3/uL (1.8-7.7) H 04/06/23 19:52 Lymph # (Auto) 0.7 10^3/uL (0.8-4.8) L 04/06/23 19:52 [place]kins # (Auto) 0.7 10^3/uL (0.2-0.9) 04/06/23 19:52 Eos # (Auto) 0.0 10^3/uL (0.0-0.8) 04/06/23 19:52 Baso # (Auto) 0.0 10^3/uL (0.0-0.1) 04/06/23 19:52 Nucleated RBC % (auto) 0.1 % 04/06/23 19:52 Nucleated RBCs # 0.0 /100WBC 04/06/23 19:52 PT 17.70 SECONDS (12.1-14.9) H 04/06/23 19:52 INR 1.41 (0.8-1.2) H 04/06/23 19:52 APTT 23.1 SECONDS (23.9-36.7) L 04/06/23 19:52 Specimen Type Arterial 04/06/23 18:18 Sample Site Radial, right 04/06/23 18:18 ABG pH 7.53 (7.35-7.45) H 04/06/23 18:18 ABG pCO2 27.5 mmHg (35-45) L 04/06/23 18:18 ABG pO2 426.0 mmHg (80.0-100.0) H 04/06/23 18:18 ABG HCO3 23.0 mmol/L (22-26) 04/06/23 18:18 ABG Base Excess 1.0 mmol/L (-2.0-2.0) 04/06/23 18:18 Filiberto Test Pos 04/06/23 18:18 Hematocrit 33.5 % (42-52) L 04/06/23 18:18 O2 Delivery Device Nrb 04/06/23 18:18 O2 Liters/Min 15.0 % 04/06/23 18:18 Sales Relationship Manager ID Adi 04/06/23 18:18 Sodium 136 mmol/L (136-145) 04/06/23 19:52 Potassium 2.5 mmol/L (3.5-5.1) L* 04/06/23 19:52 Chloride 93 mmol/L (98-107) L 04/06/23 19:52 Carbon Dioxide 26 mmol/L (22-29) 04/06/23 19:52 Anion Gap 19.5 (5-19) H 04/06/23 19:52 BUN 26 mg/dL (6-20) H 04/06/23 19:52 Creatinine 0.4 mg/dL (0.7-1.2) L 04/06/23 19:52 GFR Calculation 264.3 mL/min (90-130) H 04/06/23 19:52 Glucose 125 mg/dL (65-115) H 04/06/23 19:52 POC Glucose 150 mg/dL (70-110) H 04/06/23 17:58 Calculated Osmolality 288 mOsm/kg (285-295) 04/06/23 19:52 Lactic Acid 4.7 mmol/L (0.5-2.2) H* 04/06/23 19:52 Calcium 9.3 mg/dL (8.5-10.5) 04/06/23 19:52 Phosphorus 2.9 mg/dL (2.5-4.5) 04/06/23 19:52 Magnesium 1.6 mg/dL (1.7-2.3) L 04/06/23 19:52 Total Bilirubin 1.2 mg/dL (0.15-1.2) 04/06/23 19:52 AST 25 U/L (0-40) 04/06/23 19:52 ALT 83 U/L (0-41) H 04/06/23 19:52 Alkaline Phosphatase 99 U/L (40-130) 04/06/23 19:52 Creatine Kinase 35 U/L (39-308) L 04/06/23 19:52 C-Reactive Protein 41.5 mg/L (0.0-4.9) H 04/06/23 19:52 Total Protein 6.2 g/dL (6.6-8.7) L 04/06/23 19:52 Albumin 3.5 g/dL (3.5-5.2) 04/06/23 19:52 Globulin 2.7 g/dL (1.3-4.6) 04/06/23 19:52 TSH 5.36 uIU/mL (0.27-4.20) H 04/06/23 19:52 Free T4 1.71 ng/dL (0.82-1.77) 04/06/23 19:52 Urine Color Kaylan (Yellow) 04/06/23 20:35 Urine Appearance Clear (CLEAR) 04/06/23 20:35 Urine pH 5 (5-7) 04/06/23 20:35 Ur Specific [place] 1.020 (1.005-1.030) 04/06/23 20:35 Urine Protein 1+ (Negative) H 04/06/23 20:35 Urine Glucose (UA) Trace (Normal) H 04/06/23 20:35 Urine Ketones 1+ (Negative) H 04/06/23 20:35 Urine Blood 2+ (Negative) H 04/06/23 20:35 Urine Nitrate Positive (Negative) H 04/06/23 20:35 Urine Bilirubin 1+ (Negative) H 04/06/23 20:35 Urine Urobilinogen 1 mg/dL (Negative) H 04/06/23 20:35 Ur Leukocyte Esterase Trace (Negative) H 04/06/23 20:35 Urine RBC 0-4 /hpf (0-2) H 04/06/23 20:35 Urine WBC 0-4 /hpf (0-5) H 04/06/23 20:35 Ur Squamous Epith Cells 0-4 /hpf (0-5) H 04/06/23 20:35 Amorphous Sediment 2+ /hpf 04/06/23 20:35 Urine Bacteria Trace /hpf (NONE) 04/06/23 20:35 Hyaline Casts 0-4 /lpf H 04/06/23 20:35 Urine Mucus 3+ /hpf 04/06/23 20:35 Salicylates < 0.3 mg/dL (3-10) L 04/06/23 19:52 Urine Opiates Screen Negative ng/mL (Negative) 04/06/23 20:35 Acetaminophen < 5.0 ug/mL (10-30) L 04/06/23 19:52 Ur Barbiturates Screen Negative ng/mL (Negative) 04/06/23 20:35 Valproic Acid 2.8 ug/mL (50-100) L 04/06/23 19:52 Ur Phencyclidine Scrn Negative ng/mL (Negative) 04/06/23 20:35 Ur Amphetamines Screen Negative ng/mL (Negative) 04/06/23 20:35 U Benzodiazepines Scrn Negative ng/mL (Negative) 04/06/23 20:35 Urine Cocaine Screen Negative ng/mL (Negative) 04/06/23 20:35 U Marijuana (THC) Screen Negative ng/mL (Negative) 04/06/23 20:35 Ethyl Alcohol < 10 mg/dL (0-10) 04/06/23 19:52 All radiology interpretation(s) finalized by discharge Critical Care Time Critical Care Time: Critical Care Time: Yes Total Critical Care Time: 40 Attestation: This case had a high probability of a clinically significant, sudden, or life threatening deterioration of this patient's condition which required my full and direct attention, intervention and personal management. Time is independent of any procedures performed. Discharge Plan Discharge Patient Disposition: Admitted As Inpatient Admit Provider: Parminder Medeiros Clinical Impression: Altered mental status, Sepsis, Acute hypotension, Acute hypokalemia Condition: Stable Coding Level of Care Code ED Flight Operations Manager for Marcus Cobos
[2023-04-06 18:30] LABS: ABG PCO2 27.5 mmHg (35-45); ABG PH Result 7.53 (7.35-7.45); Arterial Blood Gas Hematocrit 33.5 % (42-52); Blood Gas Allen Test Pos; Blood Gas Sample Site Radial, right; Blood Gas Sample Type Arterial; Oxygen Device NRB
[2023-04-06 20:08] LABS: Basophils % 0.2 %; Eosinophils % 0.1 %; Lymphocytes # 0.7 10^3/uL (0.8-4.8); Lymphocytes % 3.8 %; Mean Corpuscular HGB Conc 33.3 g/dL (30-55); Mean Corpuscular Hemoglobin 31.3 pg (27-33); Mean Corpuscular Volume 93.8 fl (82-101); Mean Platelet Volume 10.9 fL (7.4-10.4); Monocytes # 0.7 10^3/uL (0.2-0.9); Monocytes % 4.2 %; Neutrophils # 15.62 10^3/uL (1.8-7.7); Neutrophils % 91.1 %; Nucleated Red Blood Cells % 0.1 %; Platelet Count 263 10^3/cmm (157-399); Red Cell Distribution Width 16.9 % (12.1-15.1); White Blood Count 17.14 10^3/uL (3.29-11.43)
[2023-04-06 20:23] LABS: INR 1.41 (0.8-1.2)
[2023-04-06] MEDS: iohexol 350 mg/mL 500 mL Btl (per mL) IV (20:23)
[2023-04-06 20:24] LABS: Partial Thromboplastin Time 23.1 SECONDS (23.9-36.7)
[2023-04-06 20:33] LABS: Lactic Sepsis W/Reflex 4.7 mmol/L (0.5-2.2)
[2023-04-06 20:55] LABS: Alanine Aminotransferase 83 U/L (0-41); Albumin Level 3.5 g/dL (3.5-5.2); Alkaline Phosphatase 99 U/L (40-130); Anion Gap 19.5 (5-19); Aspartate Amino Transferase 25 U/L (0-40); Blood Urea Nitrogen 26 mg/dL (6-20); C Reactive Protein 41.5 mg/L (0.0-4.9); Calcium 9.3 mg/dL (8.5-10.5); Carbon Dioxide 26 mmol/L (22-29); Chloride 93 mmol/L (98-107); Creatine Phosphokinase 35 U/L (39-308); Globulin 2.7 g/dL (1.3-4.6); Glomerular Filtration Rate 264.3 mL/min (90-130); Glucose 125 mg/dL (65-115); Magnesium 1.6 mg/dL (1.7-2.3); Osmolality Calculated 288 mOsm/kg (285-295); Sodium 136 mmol/L (136-145); Thyroid Stimulating Hormone 5.36 uIU/mL (0.27-4.20); Total Bilirubin 1.2 mg/dL (0.15-1.2); Total Protein 6.2 g/dL (6.6-8.7)
[2023-04-06 20:58] LABS: Acetaminophen < 5.0 ug/mL (10-30); Alcohol Level < 10 mg/dL (0-10); Salicylate < 0.3 mg/dL (3-10)
[2023-04-06 20:59] LABS: Potassium 2.5 mmol/L (3.5-5.1)
[2023-04-06 21:05] LABS: Amphetamines Screen Urine Negative (Negative); Barbiturates Screen Urine Negative (Negative); Benzodiazepines Screen Urine Negative (Negative); Cocaine Screen Urine Negative (Negative); Opiate Screen Urine Negative (Negative); PCP Screen Urine Negative (Negative); THC Screen Urine Negative (Negative)
[2023-04-06 21:09] LABS: Valproic Acid Level 2.8 ug/mL (50-100)
[2023-04-06 21:10] LABS: Add Urine Culture? Yes; Add Urine Microscopic? YES; Amorphous Sediment Urine 2+ /hpf; Bacteria Urine TRACE /hpf; Bilirubin Urine 1+ (Negative); Blood Urine 2+ (Negative); Glucose Urine UA Trace (Normal); Hyaline Casts Urine 0-4 /lpf; Ketones Urine 1+ (Negative); Leukocyte Esterase Urine Trace (Negative); Mucus Urine 3+ /hpf; Nitrate Urine Positive (Negative); Protein Urine 1+ (Negative); RBC Urine 0-4 /hpf (0-2); Squamous Epithelial Cell Urine 0-4 /hpf (0-5); Urine Appearance Clear (CLEAR); Urine Color Amber (Yellow); Urobilinogen Urine 1 mg/dL (Negative); WBC Urine 0-4 /hpf (0-5); pH Urine 5 (5-7)
[2023-04-06] MEDS: sodium chlor 0.9% + KCl 40 mEq 40 MEQ/1,000 ML BAG 250 MEQ IV (21:17)
[2023-04-06 21:51] LABS: Reflex Lactate Order REFLEX LACTIC ORDERD
[2023-04-06] MEDS: piperacillin-tazobactam 4.5 GM in sodium chloride 0.9% (plus) 50 ML IV (21:51)
--- NOTE | 2023-04-06 22:57 | XRR_ITS ---
PROCEDURE INFORMATION: Exam: XR Chest Exam date and time: 04/06/2023 11:02 PM Age: 22 years old Clinical indication: Device placement; Patient HX: Reassess patency of central line; Possibly pulled on during dressing change TECHNIQUE: Imaging protocol: Radiologic exam of the chest. Views: 1 view. COMPARISON: CR (CHEST, ) 04/06/2023 6:33 PM FINDINGS: Tubes, catheters and devices: A right internal jugular central venous line is present with its tip in the superior vena cava near the cavoatrial junction. The line appears kinked or acutely bent outside of the patient, likely at the level of the dressing. EKG monitoring leads overlie the thoracic wall. Lungs: No pulmonary consolidation. Pleural spaces: There is no pneumothorax on this supine examination. No pleural fluid collections. Heart/Mediastinum: Normal in size. Bones/joints: No acute fracture is identified. XR/XR chest 1V portable [id number] IMPRESSION: Right internal jugular central venous line not significantly changed in position from the comparison study. The line appears kinked or acutely bent outside of the patient at the level of the dressing.
--- NOTE | 2023-04-06 23:00 | PC.NURSE ---
Arrival to ICU: Pt arrived to ICU 11 @2220 04/06/23 via stretcher from ER. Skin assessment noted scattered pale bruising (in various stages of healing) on arms and legs, petechiae to bilateral ankles, large amounts of petechiae across the back, and severe excoriation in the groin/scrotum area. This RN asked the pt how he got his bruising, pt looked at this nurse but declined to answer. This RN asked pt if he felt safe at home, pt stated No , this RN did not ask the pt to elaborate. Dr. Medeiros sent images of skin concerns via [employer] system. No new orders received. R. Neck central line has approximately 8cm of catheter exposed, but is sutured in place- Dr. Medeiros made aware and gave a verbal order that it is okay to use central line. When attempting to complete admission questions, pt repeatedly answered, You'd have to ask my mom . Admission assessment retimed for 0900, no family present at bedside.
--- NOTE | 2023-04-06 23:30 | P.HP_ITS ---
Providers/Chief Complaint Admitting Physician: Parminder Medeiros Primary Care Provider: SPENSER Quezada Chief Complaint: WEAKNESS; AMS History of Present Illness 22-year-old gentleman with developmental delay, seizure disorder, hypothyroidism, recently admitted due to breakthrough seizures, weakness, UTI. His seizure regimen was adjusted. He received treatment with antibiotic and received 5 more days to complete of cefdinir, Keppra, as needed diazepam, referral for outpatient EEG and follow-up with neurology when he discharged home with his parents. He has been more inactive recently, lacking motivation. Not getting out of bed. EMS was called today due to recurrence of the symptoms with worsening, with generalized weakness, deconditioning, on arrival of EMS was minimally responsive, blood pressure could not be obtained. Disheveled. Bed in very poor condition underneath him. Some fluids possibly with coffee-ground appearance possibly after emesis noted on the bed. [place] access was placed, he received a bolus of fluid, started on epi drip. In ER he is hypotensive, with sinus tachycardia, leukocytosis, minimally responsive, received additional 2 L of boluses, with noted electrolyte abnormalities. Noted purpura large bruises, skin breakdown on and around genitals with moisture damage in the groin, scrotum, around the meatus. Central line was placed. Empirically received Zosyn, pressors ordered, but blood pressure appears to have started to improve. He is more responsive. With regards to his medical conditions he tells me that he takes seizure medications. Does not recalling details from prior hospitalization other than he went to the CT scanner 3 times. He tells me that he is in the hospital. He does not remember the current year. Review of Systems General: Reports: ROS unobtainable due to mental status Medications/Allergies Home Medications Medication Instructions Recorded Confirmed Last Taken Type albuterol sulfate 90 mcg/actuation 1 inh inhalation QID PRN Shortness 11/12/21 03/17/23 Unknown History aerosol inhaler (ProAir HFA) Of Breath divalproex 500 mg tablet,delayed 500 mg PO QAM 12/13/21 03/17/23 03/16/23 History release (Depakote) triamcinolone acetonide 0.1 % 1 applic topical BID 14 days #80 02/19/23 03/17/23 Unknown Rx topical cream grams acetaminophen 500 mg tablet 1,000 mg PO Q6H PRN Pain 03/03/23 03/17/23 Unknown History cetirizine 10 mg tablet 10 mg PO QAM 03/03/23 03/17/23 03/16/23 History fluticasone propionate 50 2 spray intranasal DAILY PRN 03/03/23 03/17/23 Unknown History mcg/actuation nasal Allergy Symptoms spray,suspension (Flonase Allergy Relief) montelukast 10 mg tablet 10 mg PO BEDTIME 03/03/23 03/17/23 03/16/23 History sertraline 100 mg tablet 100 mg PO QAM 03/03/23 03/17/23 03/16/23 History trazodone 50 mg tablet 100 mg PO BEDTIME PRN insomnia 03/03/23 03/17/23 Unknown History levothyroxine 75 mcg tablet 75 mcg PO DAILY #30 tabs 03/10/23 03/17/23 03/16/23 Rx diazepam 5 mg/spray (0.1 mL) nasal 5 mg (0.1 mL) intranasal Q4H PRN 03/19/23 Unknown Rx spray (Valtoco) Seizure #2 sprays levetiracetam 100 mg/mL oral 500 mg (5 mL) PO BID 30 days #300 03/19/23 Unknown Rx solution mL pantoprazole 40 mg tablet,delayed 40 mg PO DAILY #30 tabs 03/19/23 Unknown Rx release Allergies Allergy/AdvReac Type Severity Reaction Status Date / Time No Known Allergies Allergy Verified 03/16/23 19:07 PFSH Acute PFSH: Medical History Acute cystitis Allergic rhinitis Anemia Anxiety Asthma Asthma Benign tumor of pituitary gland Bicytopenia Bilateral foot pain Chest pain Constipation, chronic Difficulty swallowing Encounter for screening for COVID-19 Generalized weakness Gross hematuria Hallux valgus (acquired) Hearing loss in left ear Hemoptysis Hyperglycemia Hypothyroid Intellectual disability Intractable epilepsy Lt inguinal pain Mid back pain on left side Muscle cramps Psychiatric care Seasonal allergies Seizures Urinary incontinence Vitamin B12 deficiency Vitamin D deficiency Surgical History History of tonsillectomy and adenoidectomy Hx of hernia repair Family History Father Heart disease Social History Smoking and tobacco/nicotine status: current every day tobacco/nicotine user smokeless tobacco Smokeless tobacco user: chewing tobacco Smokeless tobacco details: One can/Day Quit status (tobacco/nicotine): not considering quitting Second hand smoke exposure: No Alcohol intake: never Substance/Drug Use: never Caregiver/support person: No Lives independently: No Household members: family Marital status: Single service: No Current occupational status: disabled Current gender identity: Male Vitals/I&O/Wt Last Vital Signs Temp 96.7 F L 04/06/23 18:04 Pulse 122 H 04/06/23 22:10 Resp 16 04/06/23 22:10 BP 120/79 04/06/23 22:25 Pulse Ox 94 04/06/23 22:10 O2 Del Method Nasal Cannula 04/06/23 21:21 O2 Flow Rate 8 04/06/23 21:35 04/06/23 04/06/23 04/07/23 14:59 22:59 06:59 Intake Total 1000 / 1000 Balance 1000 / 1000 Weight last 48 hrs Weight 54.431 kg Physical Exam Const: GENERAL APPEARANCE: cooperative and disheveled ORIENTATION/CONSCIOUSNESS: Yes awake, Yes oriented to person and Yes oriented to place; not oriented to time HENMT: COMMON NORMALS: oropharynx normal Neck/C-Spine: COMMON NORMALS: no JVD Resp: COMMON NORMALS: normal respiratory effort and clear to auscultation bilaterally AUSCULTATION: clear to auscultation bilaterally Cardio: COMMON NORMALS: no JVD, regular rhythm, S1 normal heart sound present, S2 normal heart sound present and No murmurs present (Cardio) RHYTHM: regular rhythm HEART SOUNDS: S1 normal heart sound present and S2 normal heart sound present GI: COMMON NORMALS: Normal to inspection, nondistended, normoactive bowel sounds present, Soft to palpation and non-tender PALPATION: Yes Soft to palpation Extremity: COMMON NORMALS: no joint enlargement and no pedal edema Neuro: COMMON NORMALS: patient oriented x3 and moves all extremities SENSORIUM/ORIENTATION: Yes alert Skin: COMMON NORMALS: no rashes or lesions noted OTHER: Purpura like rash over buttocks and lower back, purpura like lines over sock elastic bands over ankles. Redness, skin breakdown and moisture damage of groin, scrotum. Urinary Catheter Management: [place]: Cath Placed During This Visit: yes Urinary Catheter Date of Insertion: 04/06/23 Urinary Catheter Time of Insertion: 20:36 Data 04/06/23 19:52 04/06/23 19:52 Micro: Microbiology 04/06/23 20:56 Blood Culture - Preliminary Blood SPECIMEN COLLECTED 04/06/23 19:52 Blood Culture - Preliminary Blood SPECIMEN COLLECTED A&P Assessment and plan (1) Shock: Reviewed vitals, CBC, CMP, INR, TSH, UA, UDS, chest x-ray, abdomen pelvis CT, head CT. Discussed with ER physician, aortic mentation reviewed. Appears likely multifactorial shock both hypovolemic as well as possibly septic shock with pneumonia with leukocytosis, sinus tachycardia, lactic acidosis 4.7, with acute encephalopathy. Central line was placed in ER. Received 3 L boluses in ER, norepinephrine requested. Blood pressure does appear to have responded, however. Continue IV fluid. For now n.p.o. given partial small bowel obstruction. Possible intermittent volvulus. Question of possible coffee-ground emesis with some coffee-ground appearing fluid found on his bed by EMS. He had anemia during prior hospitalization, hemoglobin around 8.9, currently hemoglobin 10, although may be hemoconcentrated. Some signs of partial SBO noted on CT. would suspect some transient bowel ischemia secondary to shock. Condition appears to be improving. Follow-up lactic acid is pending. His abdomen is soft, nontender. No additional vomiting. Will reassess blood counts. Central line with proximal loop there appears may have been pulled out somewhat, requested repeat chest x-ray to confirm positioning. (2) Altered mental status: Acute encephalopathy, combination acute metabolic encephalopathy with multiple electrolyte abnormalities as well as acute encephalopathy secondary to sepsis and septic shock. No reports of seizure. So far appears to be improving with resuscitation. Continue to treat underlying conditions. Continue to ree valuate. (3) Acute hypokalemia: Will replace. Recheck potassium level. Replace magnesium. (4) Hypomagnesemia: Replacement requested. Follow-up magnesium level. (5) Pneumonia: Left lower lobe consolidation, pneumonia with sepsis, septic shock. Suspect possible aspiration pneumonia. Continue Zosyn, vancomycin empirically for now. Sputum culture if able to provide. Blood cultures have been sent out, follow- up. Respiratory viral panel has been requested. Isolation for now. Continue oxygen support, wean down as tolerating. Has come down to 2-3 L nasal cannula. (6) Partial small bowel obstruction: Mild/partial SBO noted on CT abdomen pelvis. Would suspect secondary to shock. Some consideration of possible intermittent volvulus. Currently abdomen exam is benign. No pain, soft, bowel sounds present. He is requesting for a soft drink. For now, her, will keep on bowel rest pending reassessment and surgical assessment. Continue IV fluid support. Currently no nausea or vomiting. Zofran as needed. At risk of electrolyte abnormalities, reassess chemistry. Monitor telemetry. (7) Volvulus of intestine: Possible intermittent volvulus on CT scan based on prior studies also back in October and August. Discussed with surgery, surgical consultation requested. N.p.o. for now. (8) Coffee ground emesis: Possible coffee-ground contents/emesis fluid noted on the bed at home by EMS. Suspect secondary to transient hypoperfusion of the gut with shock, on imaging mild/partial SBO, possibility of intermittent volvulus. Requested surgical consultation. Initially DVT prophylaxis with Lovenox ordered, but for now we will hold off anticoagulation, SCD only. PPI IV twice daily. Reassess hemoglobin. (9) Abnormal urinalysis: UTI during recent hospitalization with resistant organism on review of prior culture. Currently UA positive for nitrate, but only 0-4 WBC. 0-4 RBC, 0-4 SECs. no signs of obstructive uropathy on CAT scan. Urine culture has been sent out. Follow-up. Empiric broad-spectrum antibiotic coverage for now. (10) Declining functional status: Significant progressive functional decline recently with self-neglect, not getting out of bed, not eating. Seems to gotten worse not better despite improvement in condition during last hospitalization. Unclear how much of this may be secondary to worsening of depression. He will need psychiatric evaluation once he is more stable. Additionally he at least at current time does not appear to understand his medical condition. Question will be whether this will improve with recovery from the acute condition or whether he may end up requiring guardianship. (11) Self neglect: Does not appear to have good insight into his condition at least at this time. Question will be whether this will improve with improvement in his acute condition given recent progressive decline despite recent hospitalization. Will benefit from additional assessment by psychiatry to further assess for depression. Guardianship may end up being needed. (12) Rash: Noted dependent purpuric rash on his buttocks, lower back. As well as around the ankles at the level of sock elastic bands. No blistering. No oral lesions. For now Blane Smith is not suspected, but monitor for any changes in condition. Reposition frequently. (13) Tinea cruris: Terbinafine cream twice daily. Terbinafine cream twice daily. Plan MDD: At the moment unclear how much worsening of depression may be contributing to his progressive lack of self-care, self-neglect, functional decline. Once he is more stable, will need psychiatry consultation for additional assessment. Continue sertraline for now. Developmental delay Seizure disorder: Continue Keppra, transition to IV for now. Hypothyroidism: TSH noted mildly elevated 5.36, but free T4 is WNL. Continue levothyroxine. Consider reassessment of thyroid function in a few weeks or sooner in case of symptoms. Asthma: Currently not in exacerbation. Attestations Medical Necessity Statement*: Admission of over 2 midnights is may be needed for assessment management of admission of over 2 midnights colectomy needed for assessment management of multifactorial shock, encephalopathy, pneumonia, partial SBO, additional medical problems as above. Coding Level of Care Code Critical Care >/= 30 minutes Critical care time (in minutes): 35 The high probability of a clinically significant, sudden or life threatening deterioration, as referenced in this documentation, required my full and direct attention, intervention and personal management. The critical care time shown is in addition to time spent performing any reported separately billable procedures and includes the following: [x] Data and vital sign review and interpretation [x ] Patient assessment, examination and intervention [x] Medication orders and management [x] Patient/Family updates as able [x] Care Coordination and Documentation. Diagnoses Shock R57.9 Altered mental status R41.82 Acute hypokalemia E87.6 Hypomagnesemia E83.42 Pneumonia J18.9 Partial small bowel obstruction K56.600 Volvulus of intestine K56.2 Coffee ground emesis K92.0 Abnormal urinalysis R82.90 Declining functional status R53.81 Self neglect R46.89 Rash R21 Tinea cruris B35.6
[2023-04-06 23:35] LABS: Phosphorus 2.9 mg/dL (2.5-4.5)
[2023-04-06] MEDS: vancomycin 1,000 MG in sodium chloride 0.9% 250 ML 250 MG IV (23:36)
[2023-04-06 23:42] LABS: Free T4 Free Thyroxine 1.71 ng/dL (0.82-1.77)
[2023-04-06] MEDS: magnesium sulfate premix 2 GM/50 ML PIGGYBACK IV (23:44)
[2023-04-06] MEDS: enoxaparin 40 mg/0.4 mL Syringe SUBCUT (23:46)
[2023-04-06] MEDS: pantoprazole 40 mg SDV IVP (23:52)
[2023-04-06] MEDS: lactated ringers 1,000 ML 100 ML IV (23:53)
[2023-04-07] VITALS (100 sets, daily range): BP systolic 87–138; BP diastolic 61–100; PULSE 97–161; RESP 11–22; TEMP 37.1–37.5; O2SAT 91–100
[2023-04-07] MEDS: lidocaine 1% 5 ML in potassium chloride premix 100 ML 26.25 ML IV (00:07)
[2023-04-07 01:44] LABS: Adenovirus Not Detected (NOT DETECT); Chlamydia Pneumoniae Not Detected (NOT DETECT); Coronavirus 229E,HKU1,NL63,OC4 Not Detected (NOT DETECT); Human Metapneumovirus Not Detected (NOT DETECT); Human Rhinovirus/Enterovirus Not Detected (NOT DETECT); Influenza A Not Detected (NOT DETECT); Influenza A H1 Not Detected (NOT DETECT); Influenza A H1-2009 Not Detected (NOT DETECT); Influenza A H3 Not Detected (NOT DETECT); Influenza B Not Detected (NOT DETECT); Mycoplasma Pneumoniae Not Detected (NOT DETECT); Parainfluenza Virus Type 1 Not Detected (NOT DETECT); Parainfluenza Virus Type 2 Not Detected (NOT DETECT); Parainfluenza Virus Type 3 Not Detected (NOT DETECT); Parainfluenza Virus Type 4 Not Detected (NOT DETECT); Respiratory Syncytial Virus A Not Detected (NOT DETECT); Respiratory Syncytial Virus B Not Detected (NOT DETECT); SARS-COV-2 Not Detected (NOT DETECT)
--- NOTE | 2023-04-07 02:02 | PC.NURSE ---
EMS brought patient to ED and reported the bed was disintegrating underneath the patient. Patient was reported extremely cold, pale, and mottled at their interaction. Axillary temp was around 96 upon their assessment. Patient was alert to painful stimuli for EMS and covered in what they believed was coffee ground emesis. Patient brought to ED where he was cared for by day shift RN and reported the above to me. Upon my assessment I noted the patient to be responsive to voice and oriented to name and place only. Patient was under a bear hugger and adult depend was under patient. Dried blood noted around penis tip. Skin breakdown noted in skin creases under scrotum, groin area, and leg/groin crease area. Skin was mottled and cold. Patient smelled strong of body odor and oily hair. Patient was covered in what appeared to be chewing tobacco, coffee grounds, or coffee ground emesis under his back, in his armpits, on his chest and in his groin. Patient back had multiple discolorations to back including petechiae and bruising. Bruising was also noted to patient's heels and back of leg. Depend under patient had been undone and had packing tape on the elastic waist band. Day shift nurse reported family had used the tape to keep the depend on the patient. Patient was re-warmed in ED and appeared to have discoloration around forearm/wrist area appoximately 1 inch wide circumferentially. Patient was questioned about state of home and how he became so cold and how he had developed bruises. Patient was unable to answer. Mother entered room and discussed nature of this. Mother had stated patient had been in this current condition since 03/16 and she decided to call EMS today because she had become tired of caring for him. It has become too much and I can't keep doing this. Mother stated physical ailments as to why she couldn't keep caring for him. Mother states prior to 03/16 patient was able to walk and talk just like us. Mother reports patient conitnued to go downhill. Mother reports patient refused to eat or drink due to pains and has only been sucking on skittles since 03/16. Mother reports that patient is stubborn and won't allow her to care for him while also stating that the patient has been near unresponsive. Mother reports that tonight the patient was wanting to go to [facility] for care tonight but EMS stated patient needed to come here and patient was not responsive enough to convey his wishes of destination.
[2023-04-07 03:00] LABS: Lactic Acid level (Lactate) 1.6 mmol/L (0.5-2.2)
[2023-04-07 04:15] LABS: Basophils % 0.2 %; Hematocrit 23.6 % (37-53); Lymphocytes % 7.6 %; Mean Corpuscular HGB Conc 33.1 g/dL (30-55); Mean Corpuscular Hemoglobin 31.3 pg (27-33); Mean Corpuscular Volume 94.8 fl (82-101); Mean Platelet Volume 10.8 fL (7.4-10.4); Monocytes # 0.7 10^3/uL (0.2-0.9); Monocytes % 5.1 %; Neutrophils # 11.09 10^3/uL (1.8-7.7); Neutrophils % 86.6 %; Nucleated Red Blood Cells % 0 %; Platelet Count 224 10^3/cmm (157-399); Red Blood Count 2.49 10^6/uL (3.85-5.65); Red Cell Distribution Width 17.1 % (12.1-15.1)
[2023-04-07 04:35] LABS: Alanine Aminotransferase 64 U/L (0-41); Albumin Level 2.9 g/dL (3.5-5.2); Alkaline Phosphatase 95 U/L (40-130); Anion Gap 12.6 (5-19); Aspartate Amino Transferase 25 U/L (0-40); Blood Urea Nitrogen 18 mg/dL (6-20); Calcium 8.2 mg/dL (8.5-10.5); Carbon Dioxide 26 mmol/L (22-29); Chloride 105 mmol/L (98-107); Globulin 2.3 g/dL (1.3-4.6); Glomerular Filtration Rate 264.3 mL/min (90-130); Glucose 106 mg/dL (65-115); Magnesium 2.1 mg/dL (1.7-2.3); Osmolality Calculated 292 mOsm/kg (285-295); Potassium 3.6 mmol/L (3.5-5.1); Sodium 140 mmol/L (136-145); Total Bilirubin 0.9 mg/dL (0.15-1.2); Total Protein 5.2 g/dL (6.6-8.7)
--- NOTE | 2023-04-07 04:49 | CTR_ITS ---
PROCEDURE INFORMATION: Exam: CTA Chest With Contrast Exam date and time: 04/07/2023 5:12 AM Age: 22 years old Clinical indication: Patient HX: Persistent tachycardia. ; Additional info: Assess for pe TECHNIQUE: Imaging protocol: Computed tomographic angiography of the chest with contrast. Exam focused on the arteries. 3D rendering (Not supervised by radiologist): MIP and/or 3D reconstructed images were created by the technologist. Radiation optimization: All CT scans at this facility use at least one of these dose optimization techniques: automated exposure control; mA and/or kV adjustment per patient size (includes targeted exams where dose is matched to clinical indication); or iterative reconstruction. Contrast material: OMNI 350; Contrast volume: 46 ml; Contrast route: INTRAVENOUS (IV); REPORTING DATA: Count of CT and Cardiac NM exams in prior 12 months: This patient has received 4 known CTs and 0 known cardiac nuclear medicine studies in the 12 months prior to the current study. COMPARISON: CT angio chest PE protcl [id number] 12/02/2020 9:43 PM RADIATION DOSE METRICS: Total DLP (mGy-cm): 492.32 FINDINGS: Tubes, catheters and devices: There is a right internal jugular central venous line with its tip at the cavoatrial junction. Pulmonary arteries: No filling defects in the pulmonary arteries to suggest pulmonary emboli. Aorta: There is no thoracic aortic aneurysm or dissection. Lungs: In the left lower lobe, there is an area of dependent consolidation. In the right lower lobe there is a smaller area of consolidation. Pleural spaces: Unremarkable. No pneumothorax. No pleural effusion. Heart: The heart is normal in size. There are no pericardial fluid collections. Lymph nodes: Normal sized and mildly prominent hilar lymph nodes as large as 12 mm in short dimension, likely reactive. In the left lower lobe, there is an oblong juxtapleural nodule or lymph node for which no follow-up is recommended. Bones/joints: No acute fracture is seen. Soft tissues: Unremarkable. Other findings: No acute findings in the included upper abdomen. CT/CT angio chest PE protcl [id number] IMPRESSION: 1. No evidence of pulmonary embolus. 2. Dependent consolidation in the bilateral lower lobes, favored to represent pneumonia such as aspiration related. 3. Mildly prominent hilar mediastinal lymph nodes, likely reactive.
[2023-04-07] MEDS: iohexol 350 mg/mL 500 mL Btl (per mL) IV (05:24)
[2023-04-07] MEDS: piperacillin-tazobactam 3.375 GM in sodium chloride 0.9% (plus) 50 ML IV ×3 (05:54→19:55)
[2023-04-07] MEDS: vancomycin 1,250 MG/250 ML PIGGYBACK 250 MG IV ×3 (06:36→22:59)
--- NOTE | 2023-04-07 06:53 | P.CONIM_ITS ---
Providers/Reason For Consult Consulting Physician/Specialty*: General surgery Reason for Consult*: Possible partial small bowel obstruction Attending Physician: Parminder Medeiros Primary Care Provider: SPENSER Quezada History of Present Illness History of Present Illness Hussein Man is a 22 year old male with significant history concerning for developmental delay, epilepsy, who requires 24-hour care by his parents. Patient was transported to the hospital yesterday after parents noted him to be unresponsive, blood pressure was unable to be obtained at the scene and he was noted to be in poor clinical condition with the area around the patient soiled. Patient was unable to provide any history at that time. Emergency department evaluation showed evidence of altered mental status, elevated white count, elevated lactate. A CAT scan of the abdomen was obtained due to reports of possible vomiting and show evidence of a possible partial small bowel obstructi on with a possible swirling of the mesentery in the upper abdomen concerning for intermittent volvulus I was consulted for this finding. In the last 8 hours patient was resuscitated with fluids, white count trended down, lactate normalized. Patient now alert And answering questions she denies any nausea, no abdominal pain, states that he is feeling better. Review of Systems Narrative: 10 point review of system was unable to be concluded due to patient clinical condition Medications/Allergies Home Medications Medication Instructions Recorded Confirmed Last Taken Type albuterol sulfate 90 mcg/actuation 1 inh inhalation QID PRN Shortness 11/12/21 03/17/23 Unknown History aerosol inhaler (ProAir HFA) Of Breath divalproex 500 mg tablet,delayed 500 mg PO QAM 12/13/21 03/17/23 03/16/23 History release (Depakote) triamcinolone acetonide 0.1 % 1 applic topical BID 14 days #80 02/19/23 03/17/23 Unknown Rx topical cream grams acetaminophen 500 mg tablet 1,000 mg PO Q6H PRN Pain 03/03/23 03/17/23 Unknown History cetirizine 10 mg tablet 10 mg PO QAM 03/03/23 03/17/23 03/16/23 History fluticasone propionate 50 2 spray intranasal DAILY PRN 03/03/23 03/17/23 Unknown History mcg/actuation nasal Allergy Symptoms spray,suspension (Flonase Allergy Relief) montelukast 10 mg tablet 10 mg PO BEDTIME 03/03/23 03/17/23 03/16/23 History sertraline 100 mg tablet 100 mg PO QAM 03/03/23 03/17/23 03/16/23 History trazodone 50 mg tablet 100 mg PO BEDTIME PRN insomnia 03/03/23 03/17/23 Unknown History levothyroxine 75 mcg tablet 75 mcg PO DAILY #30 tabs 03/10/23 03/17/23 03/16/23 Rx diazepam 5 mg/spray (0.1 mL) nasal 5 mg (0.1 mL) intranasal Q4H PRN 03/19/23 Unknown Rx spray (Valtoco) Seizure #2 sprays levetiracetam 100 mg/mL oral 500 mg (5 mL) PO BID 30 days #300 03/19/23 Unknown Rx solution mL pantoprazole 40 mg tablet,delayed 40 mg PO DAILY #30 tabs 03/19/23 Unknown Rx release Allergies Allergy/AdvReac Type Severity Reaction Status Date / Time No Known Allergies Allergy Verified 03/16/23 19:07 Current Medications Generic Name Dose Route Start Last Admin Trade Name Freq PRN Reason Stop Dose Admin Piperacillin Sod/Tazobactam 50 mls @ 12.5 mls/hr 04/07/23 05:00 04/07/23 05:54 Sod 3.375 gm/ Sodium Chloride IV 12.5 mls/hr Q8H BUD Administration Protocol Levetiracetam 500 mg/ Sodium 105 mls @ 420 mls/hr 04/06/23 22:50 04/06/23 23:55 Chloride IV Infused BID@0900,2100 BUD Infusion Lactated Ringer's 1,000 mls @ 100 mls/hr 04/06/23 23:00 04/07/23 06:00 Lactated Ringers IV 100 mls/hr .Q10H BUD Infusion Vancomycin/PEG/NADA/Lysine/Water 1,250 mg in 250 mls @ 250 mls/hr 04/07/23 07:30 04/07/23 06:36 Vancocin IV 250 mls/hr Q8H BUD Administration PFSH Acute PFSH: Medical History Acute cystitis Allergic rhinitis Anemia Anxiety Asthma Asthma Benign tumor of pituitary gland Bicytopenia Bilateral foot pain Chest pain Constipation, chronic Difficulty swallowing Encounter for screening for COVID-19 Generalized weakness Gross hematuria Hallux valgus (acquired) Hearing loss in left ear Hemoptysis Hyperglycemia Hypothyroid Intellectual disability Intractable epilepsy Lt inguinal pain Mid back pain on left side Muscle cramps Psychiatric care Seasonal allergies Seizures Urinary incontinence Vitamin B12 deficiency Vitamin D deficiency Surgical History History of tonsillectomy and adenoidectomy Hx of hernia repair Family History Father Heart disease Social History Smoking and tobacco/nicotine status: current every day tobacco/nicotine user smokeless tobacco Smokeless tobacco user: chewing tobacco Smokeless tobacco details: One can/Day Quit status (tobacco/nicotine): not considering quitting Second hand smoke exposure: No Alcohol intake: never Substance/Drug Use: never Caregiver/support person: No Lives independently: No Household members: family Marital status: Single service: No Current occupational status: disabled Current gender identity: Male Vitals/I&O/Wt Last Vital Signs Temp 99.4 F 04/07/23 06:00 Pulse 118 H 04/07/23 06:15 Resp 14 04/07/23 06:15 BP 127/85 04/07/23 06:15 Pulse Ox 99 04/07/23 06:15 O2 Del Method Room Air 04/07/23 06:15 O2 Flow Rate 2 04/07/23 00:45 04/06/23 04/06/23 04/07/23 14:59 22:59 06:59 Intake Total 2049 1621.667 / 3671.667 Output Total 375 / 375 Balance 2049 1246.667 / 3296.667 Weight last 48 hrs Weight 134 lb 6.4 oz Weight 120 lb Physical Exam Const: OTHER: Patient laying in bed, appears frail, alert, cognitive delays noted GI: OTHER: Abdomen is soft, nontender, nondistended, benign in nature Urinary Catheter Management: Winslow: Cath Placed During This Visit: yes Reason for Continuing Indwelling Catheter: Accurate Measurement of Urinary Output in Critically Ill Patients Urinary Catheter Date of Insertion: 04/06/23 Urinary Catheter Time of Insertion: 20:36 Data 04/07/23 03:41 04/07/23 03:41 Micro: Microbiology 04/06/23 20:56 Blood Culture - Preliminary Blood SPECIMEN COLLECTED 04/06/23 19:52 Blood Culture - Preliminary Blood SPECIMEN COLLECTED A&P Assessment and plan (1) Partial small bowel obstruction: Plan After complete history, physical examination and review of all available clinical data the following is my assessment. I have personally reviewed the CT scan of the abdomen, there is no concerning findings for bowel ischemia, perfo ration or any other findings concerning for significant GI source of patient clinical status. Finding report that it is more likely to be incidental in nature, this is supported by quick improvement of patient with resuscitation as well as downtrend of the lactate level and white count and normal abdominal exam. I will recommend to continue maximal resuscitation by medical team, in the case of recurrent vomiting episodes consider NG tube for decompression and may consider a Gastrografin small bowel follow-through to rule out intestinal obstruction. At this point there is no need for any acute surgical intervention. I will reassess the patient during hospital stay to ensure adequate abdominal exam. Coding Level of Care Code 90789 Diagnoses Partial small bowel obstruction K56.600
[2023-04-07] MEDS: lactated ringers 1,000 ML 100 ML IV (08:49)
--- NOTE | 2023-04-07 08:51 | PC.PHAR ---
PTS' FATHER WENT OVER MED LIST 8:50AM. HE WAS UNSURE OF THE ANTI SEIZURE MEDICATION VALTOCO 5MG/SPRAY. FILLED 03/20 30DS. 04/07/23
[2023-04-07] MEDS: terbinafine 1% Cream 15 gm 1 APPLIC TOPICAL ×2 (08:59→18:15)
[2023-04-07] MEDS: dextrose 5%-sod chloride 0.9% 1,000 ML 75 ML IV (12:06)
[2023-04-07] MEDS: pantoprazole 40 mg SDV IVP ×2 (12:06→22:59)
--- NOTE | 2023-04-07 17:07 | PM.PN ---
Subjective Subjective: Hospital course, labs appreciated. On examination laying comfortably in bed, that baseline seems to be hypoverbal. Patient is following in the room with his eyes, awake and alert, has delayed responses but seems AOx3. He states he is not in pain, feeling fine. He denies feeling hungry. Has remained hemodynamically stable and afebrile. On room air, not on Levophed. Blood work appreciated for white count within normal 12.8, hemoglobin today down to 7.8, CMP showing sodium level 140, creatinine 3.6, UA positive for nitrate and leukoesterase, respiratory viral panel negative. Vitals/I&O/Wt Last Vital Signs Temp 98.7 F 04/07/23 11:00 Pulse 106 H 04/07/23 16:30 Resp 16 04/07/23 16:30 BP 112/85 04/07/23 16:30 Pulse Ox 96 04/07/23 16:30 O2 Del Method Room Air 04/07/23 07:42 O2 Flow Rate 2 04/07/23 00:45 04/07/23 04/07/23 04/07/23 06:59 14:59 22:59 Intake Total 1621.667 / 3671.667 686.667 / 686.667 300 / 986.667 Output Total 375 / 375 Balance 1246.667 / 3296.667 686.667 / 686.667 300 / 986.667 Weight last 48 hrs Weight 60.963 kg Weight 54.431 kg Physical Exam Const: COMMON NORMALS: patient oriented x3 and alert GENERAL APPEARANCE: cooperative and disheveled ORIENTATION/CONSCIOUSNESS: Yes awake, Yes oriented to person and Yes oriented to place; not oriented to time HENMT: COMMON NORMALS: oropharynx normal Neck/C-Spine: COMMON NORMALS: no JVD Resp: COMMON NORMALS: normal respiratory effort and clear to auscultation bilaterally AUSCULTATION: clear to auscultation bilaterally Cardio: COMMON NORMALS: no JVD, regular rhythm, S1 normal heart sound present, S2 normal heart sound present and No murmurs present (Cardio) RHYTHM: regular rhythm HEART SOUNDS: S1 normal heart sound present and S2 normal heart sound present GI: COMMON NORMALS: Normal to inspection, nondistended, normoactive bowel sounds present, Soft to palpation and non-tender PALPATION: Yes Soft to palpation Extremity: COMMON NORMALS: no joint enlargement and no pedal edema Neuro: COMMON NORMALS: patient oriented x3 and moves all extremities SENSORIUM/ORIENTATION: Yes alert, Yes oriented to person, Yes oriented to place and No oriented to time Skin: COMMON NORMALS: no rashes or lesions noted GENERAL SKIN EXAM: no rashes or lesions noted OTHER: Purpura like rash over buttocks and lower back, purpura like lines over sock elastic bands over ankles. Redness, skin breakdown and moisture damage of groin, scrotum. Urinary Catheter Management: Winslow: Cath Placed During This Visit: yes Reason for Continuing Indwelling Catheter: Accurate Measurement of Urinary Output in Critically Ill Patients Urinary Catheter Date of Insertion: 04/06/23 Urinary Catheter Time of Insertion: 20:36 Data 04/07/23 03:41 04/07/23 03:41 Micro: Microbiology 04/06/23 20:56 Blood Culture - Preliminary Blood SPECIMEN COLLECTED 04/06/23 19:52 Blood Culture - Preliminary Blood SPECIMEN COLLECTED A&P Assessment and plan (1) Shock: Resolved. Most likely hypovolemic on admission. Continues to have leukocytosis though trending down. Keep mean artery pressure 65. Hold off on Levophed for now. Continue with IV hydration at 100 cc/h. Switch to D5 NS from Ringer lactate. Monitor hemoglobin. Target hemoglobin will be in more than 7. Baseline hemoglobin seems to be around 8.9. (2) Altered mental status: Resolving. We will request physical therapy. On admission encephalopathy most likely in setting of dehydration. Patient does have history of seizure disorder. No seizures reported. Continue to monitor. We will request for PT and speech evaluation. (3) Pneumonia: Possible aspiration pneumonia. Respiratory viral panel negative. Cannot rule out aspiration pneumonia. MRSA swab and sputum culture still pending. Continue with vancomycin and Zosyn for now. Restart diet as per speech evaluation. (4) Partial small bowel obstruction: With possible volvulus. Appreciate surgical recommendations. Most likely intermittent in setting of dehydration. Hold off on diet for now. IV hydration as above. Next continue Zofran as needed, Protonix twice daily for now Monitor electrolytes daily. (5) Volvulus of intestine: Appreciate surgical recommendation (6) Coffee ground emesis: Possible coffee-ground contents/emesis fluid noted on the bed at home by EMS. Suspect secondary to transient hypoperfusion of the gut with shock, on imaging mild/partial SBO, possibility of intermittent volvulus. Initially DVT prophylaxis with Lovenox ordered, but for now we will hold off anticoagulation, SCD only. PPI IV twice daily. Reassess hemoglobin daily. (7) Abnormal urinalysis: Follow-up urine culture. Continue antibiotics as above. Winslow placed in ER. For now we will continue given need for fluid status monitoring. We will discontinue the next 24 hours if remains hemodynamically stable. (8) Declining functional status: Significant progressive functional decline recently with self-neglect, not getting out of bed, not eating. Seems to gotten worse not better despite improvement in condition during last hospitalization. Unclear how much of this may be secondary to worsening of depression. He will need psychiatric evaluation once he is more stable. Additionally he at least at current time does not appear to understand his medical condition. Question will be whether this will improve with recovery from the acute condition or whether he may end up requiring guardianship. (9) Self neglect: Does not appear to have good insight into his condition at least at this time. Question will be whether this will improve with improvement in his acute condition given recent progressive decline despite recent hospitalization. Will benefit from additional assessment by psychiatry to further assess for depression. Guardianship may end up being needed. (10) Acute hypokalemia: Resolved. (11) Hypomagnesemia: Resolved. (12) Rash: Noted dependent purpuric rash on his buttocks, lower back. As well as around the ankles at the level of sock elastic bands. No blistering. No oral lesions. For now Blane Luis is not suspected, but monitor for any changes in condition. Reposition frequently. (13) Tinea cruris: Terbinafine cream twice daily. Terbinafine cream twice daily. Plan MDD: At the moment unclear how much worsening of depression versus considerable developmental delay may be contributing to his progressive lack of self-care, self-neglect, functional decline. Once he is more stable, will need psychiatry consultation for additional assessment. Continue sertraline for now. Developmental delay Seizure disorder: Continue Keppra, transition to IV for now. Hypothyroidism: TSH noted mildly elevated 5.36, but free T4 is WNL. Continue levothyroxine. Consider reassessment of thyroid function in a few weeks or sooner in case of symptoms. Asthma: Currently not in exacerbation. Full code NPO. Advance as per speech evaluation. Protonix for PUD prophylaxis. SCDs for DVT prophylaxis. Continue care at ICU for today. If remains hemodynamically [facility] Attestations Medical Necessity Statement*: Requires further hospitalization for management of shock in setting of hypovolemia, pneumonia with possibility of aspiration, acute encephalopathy in setting of worsening depression versus considerable developmental delay as caregiver neglect cannot be ruled out Diagnoses Shock R57.9 Altered mental status R41.82 Pneumonia J18.9 Partial small bowel obstruction K56.600 Volvulus of intestine K56.2 Coffee ground emesis K92.0 Abnormal urinalysis R82.90 Declining functional status R53.81 Self neglect R46.89 Acute hypokalemia E87.6 Hypomagnesemia E83.42 Rash R21 Tinea cruris B35.6
[2023-04-07 17:18] LABS: Glucose Point of Care 95 mg/dL (70-110)
--- NOTE | 2023-04-07 19:51 | PC.NURSE ---
Spoke with Dr Martinez regarding PO medications. Received instruction to give PO medications.
[2023-04-07] MEDS: trazodone 50 mg Tablet 100 MG PO (19:55)
[2023-04-07 22:53] LABS: Vancomycin Trough 18.9 ug/mL (10-15)
[2023-04-08] VITALS (15 sets, daily range): BP systolic 114–143; BP diastolic 69–96; PULSE 112–144; RESP 14–22; TEMP 36.6–36.7; O2SAT 93–100
[2023-04-08] MEDS: dextrose 5%-sod chloride 0.9% 1,000 ML 75 ML IV (00:30)
[2023-04-08] MEDS: piperacillin-tazobactam 3.375 GM in sodium chloride 0.9% (plus) 50 ML IV ×3 (05:04→21:25)
[2023-04-08] MEDS: sertraline 100 mg Tablet PO (05:05)
[2023-04-08] MEDS: levothyroxine 75 mcg Tablet PO (05:05)
[2023-04-08 05:13] LABS: Basophils % 0.3 %; Eosinophils % 0.2 %; Hematocrit 24.7 % (37-53); Lymphocytes # 0.8 10^3/uL (0.8-4.8); Lymphocytes % 8.8 %; Mean Corpuscular Hemoglobin 30.9 pg (27-33); Mean Corpuscular Volume 96.5 fl (82-101); Mean Platelet Volume 10.3 fL (7.4-10.4); Monocytes # 0.4 10^3/uL (0.2-0.9); Monocytes % 4.2 %; Neutrophils % 85.8 %; Nucleated Red Blood Cells % 0 %; Platelet Count 190 10^3/cmm (157-399); Red Blood Count 2.56 10^6/uL (3.85-5.65); Red Cell Distribution Width 16.8 % (12.1-15.1); White Blood Count 8.75 10^3/uL (3.29-11.43)
[2023-04-08] MEDS: ondansetron 2 mg/ML SDV 2 mL 4 MG IVP (05:28)
[2023-04-08 05:31] LABS: Magnesium 1.5 mg/dL (1.7-2.3)
[2023-04-08 05:35] LABS: Alanine Aminotransferase 58 U/L (0-41); Albumin Level 3.4 g/dL (3.5-5.2); Alkaline Phosphatase 97 U/L (40-130); Anion Gap 12.2 (5-19); Aspartate Amino Transferase 28 U/L (0-40); Blood Urea Nitrogen 6 mg/dL (6-20); Calcium 8.4 mg/dL (8.5-10.5); Carbon Dioxide 27 mmol/L (22-29); Chloride 96 mmol/L (98-107); Glomerular Filtration Rate 588.1 mL/min (90-130); Glucose 115 mg/dL (65-115); Osmolality Calculated 273 mOsm/kg (285-295); Potassium 3.2 mmol/L (3.5-5.1); Sodium 132 mmol/L (136-145); Total Bilirubin 0.6 mg/dL (0.15-1.2); Total Protein 5.4 g/dL (6.6-8.7)
[2023-04-08] MEDS: nicotine 21 mg Patch 1 PATCH TRANSDERMA (05:56)
[2023-04-08] MEDS: vancomycin 1,250 MG/250 ML PIGGYBACK 250 MG IV ×3 (06:26→23:31)
--- NOTE | 2023-04-08 08:22 | PM.PN ---
Subjective Subjective: Patient has remained stable, vitals and on laboratory work-up have improved significantly. Leukocytosis has resolved, lactic acidosis has resolved. Patient does not complain of abdominal pain, he is not interested in allowing examination during my visit. Vitals/I&O/Wt Last Vital Signs Temp 98.1 F 04/08/23 01:06 Pulse 113 H 04/08/23 08:00 Resp 16 04/08/23 08:00 BP 120/91 04/08/23 08:00 Pulse Ox 99 04/08/23 08:00 O2 Del Method Room Air 04/08/23 08:00 O2 Flow Rate 2 04/07/23 00:45 04/07/23 04/08/23 04/08/23 22:59 06:59 14:59 Intake Total 2006.25 / 2692.917 618.75 / 3311.667 250 / 250 Output Total 2600 / 2600 1800 / 4400 Balance -593.75 / 92.917 -1181.25 / -1088.333 250 / 250 Weight last 48 hrs Weight 134 lb 12.8 oz Weight 134 lb 6.4 oz Weight 120 lb Physical Exam GI: OTHER: Abdomen is nondistended, nontender per patient report, he refused examination as he indicates that he does not have any issues with his abdomen. Urinary Catheter Management: Winslow: Cath Placed During This Visit: yes Reason for Continuing Indwelling Catheter: Acute Urinary Retention or Obstruction Urinary Catheter Date of Insertion: 04/06/23 Urinary Catheter Time of Insertion: 20:36 Data 04/08/23 05:00 04/08/23 05:00 Micro: Microbiology 04/06/23 20:56 Blood Culture - Preliminary Blood NEGATIVE TO DATE 04/06/23 19:52 Blood Culture - Preliminary Blood NEGATIVE TO DATE A&P Assessment and plan (1) Volvulus of intestine: Plan Patient stable from the general surgery standpoint. No evidence of a small bowel obstruction, laboratory work-up and vital signs have been steadily improving. Patient still appears to be weak. Continues resuscitation by medical ICU team is recommended. Once patient is resuscitated I think will be appropriate to start p.o. intake and advance as tolerated. No surgical intervention is planned at this point. Attestations Medical Necessity Statement*: Patient will need to continue hospital stay for management of underlying medical conditions, epilepsy, malnutrition and self-neglect. Coding Level of Care Code Acute Code for Chg Fwd Diagnoses Volvulus of intestine K56.2
[2023-04-08] MEDS: terbinafine 1% Cream 15 gm 1 APPLIC TOPICAL ×2 (09:11→17:21)
[2023-04-08] MEDS: ferrous gluconate 324 mg Tablet PO (11:49)
[2023-04-08] MEDS: magnesium sulfate premix 2 GM/50 ML PIGGYBACK IV (11:49)
[2023-04-08] MEDS: pantoprazole 40 mg SDV IVP ×2 (11:49→23:26)
[2023-04-08] MEDS: potassium chloride ER 20 mEq Tablet 40 MEQ PO (11:49)
[2023-04-08] MEDS: potassium phosphate (mEq K) 40 MEQ in sodium chloride 0.9% (100 ml) 100 ML 27.27 MEQ IV (11:49)
[2023-04-08] MEDS: sodium chloride 0.9% 1,000 ML 75 ML IV (12:28)
--- NOTE | 2023-04-08 13:28 | P.PN_ITS ---
Subjective Subjective: No acute events overnight. Patient has remained hemodynamically stable and afebrile though heart rate continues to remain more than 110. As per the nursing staff patient has been reluctant in cooperating with his care. He is refusing any oral care, to be moved in bed. He is continuing his oral medications when given to him. On examination patient is laying comfortably in bed, awake, hypoverbal. States he is feeling fine without any pain. States he is not hungry and does not want anything to eat. We discussed that if he does not eat he will get more malnourished and can even after which he is agreeable to take chicken in his meals. Has remained on room air. Blood work today shows resolution of leukocytosis, stable hemoglobin of 7.9, CMP showing mild hyponatremia down to 132, hypokalemia 3.2, stable creatinine, hypomagnesemia at 1.5. Document urine output of 4.4 L yesterday. Vitals/I&O/Wt Last Vital Signs Temp 98.1 F 04/08/23 01:06 Pulse 118 H 04/08/23 10:00 Resp 19 H 04/08/23 10:00 BP 127/96 04/08/23 10:00 Pulse Ox 99 04/08/23 10:00 O2 Del Method Room Air 04/08/23 10:00 O2 Flow Rate 2 04/07/23 00:45 04/07/23 04/08/23 04/08/23 22:59 06:59 14:59 Intake Total 2006.25 / 2692.917 618.75 / 3311.667 405 / 405 Output Total 2600 / 2600 1800 / 4400 900 / 900 Balance -593.75 / 92.917 -1181.25 / -1088.333 -495 / -495 Weight last 48 hrs Weight 61.144 kg Weight 60.963 kg Weight 54.431 kg Physical Exam Const: COMMON NORMALS: patient oriented x3 and alert EXAM LIMITATIONS: behavioral limitations GENERAL APPEARANCE: cooperative and disheveled NUTRITIONAL APPEARANCE: thin ORIENTATION/CONSCIOUSNESS: Yes awake, Yes oriented to person and Yes oriented to place; not oriented to time HENMT: COMMON NORMALS: oropharynx normal Eye: COMMON NORMALS: Equal, round and reactive pupils present, negative for conjunctivae normal and no scleral icterus CONJUNCTIVA: No conjunctivae normal PUPIL: Yes Equal, round and reactive pupils present Neck/C-Spine: COMMON NORMALS: no JVD Resp: COMMON NORMALS: normal respiratory effort and clear to auscultation bilaterally AUSCULTATION: clear to auscultation bilaterally Cardio: COMMON NORMALS: no JVD, regular rhythm, S1 normal heart sound present, S2 normal heart sound present and No murmurs present (Cardio) RHYTHM: regular rhythm HEART SOUNDS: S1 normal heart sound present and S2 normal heart sound present GI: COMMON NORMALS: Normal to inspection, nondistended, normoactive bowel sounds present, Soft to palpation and non-tender PALPATION: Yes Soft to palpation Extremity: COMMON NORMALS: no joint enlargement and no pedal edema Neuro: COMMON NORMALS: patient oriented x3 and moves all extremities SENSORIUM/ORIENTATION: Yes alert, Yes oriented to person, Yes oriented to place and No oriented to time Skin: COMMON NORMALS: no rashes or lesions noted GENERAL SKIN EXAM: no rashes or lesions noted OTHER: Purpura like rash over buttocks and lower back, purpura like lines over sock elastic bands over ankles. Redness, skin breakdown and moisture damage of groin, scrotum. Urinary Catheter Management: Winslow: Cath Placed During This Visit: yes Reason for Continuing Indwelling Catheter: Acute Urinary Retention or Obstruction Urinary Catheter Date of Insertion: 04/06/23 Urinary Catheter Time of Insertion: 20:36 Data 04/08/23 05:00 04/08/23 05:00 Micro: Microbiology 04/06/23 20:35 Urine Culture - Final Urine,Clean Catch 04/06/23 20:56 Blood Culture - Preliminary Blood NEGATIVE TO DATE 04/06/23 19:52 Blood Culture - Preliminary Blood NEGATIVE TO DATE A&P Assessment and plan (1) Pneumonia: Possible aspiration pneumonia. Respiratory viral panel negative. Cannot rule out aspiration pneumonia. MRSA swab and sputum culture still pending. Continue with vancomycin and Zosyn for now. Restart diet as per speech evaluation. (2) Shock: Resolved. Most likely hypovolemic on admission. Continues to have leukocytosis though trending down. Keep mean artery pressure 65. Hold off on Levophed for now. Continue with IV hydration at 100 cc/h. Monitor hemoglobin. Target hemoglobin will be in more than 7. Baseline hemoglobin seems to be around 8.9. (3) Altered mental status: Resolving. We will request physical therapy. On admission encephalopathy most likely in setting of dehydration. Patient does have history of seizure disorder. No seizures reported. Continue to monitor. We will request for PT and speech evaluation. (4) Partial small bowel obstruction: With possible volvulus. Appreciate surgical recommendations. Most likely intermittent in setting of dehydration. Hold off on diet for now. IV hydration as above. Next continue Zofran as needed, Protonix twice daily for now Monitor electrolytes daily. (5) Volvulus of intestine: Appreciate surgical recommendation (6) Coffee ground emesis: Possible coffee-ground contents/emesis fluid noted on the bed at home by EMS. Suspect secondary to transient hypoperfusion of the gut with shock, on imaging mild/partial SBO, possibility of intermittent volvulus. Initially DVT prophylaxis with Lovenox ordered, but for now we will hold off anticoagulation, SCD only. PPI IV twice daily. Reassess hemoglobin daily. (7) Abnormal urinalysis: Follow-up urine culture. Continue antibiotics as above. Winslow placed in ER. For now we will continue given need for fluid status monitoring. We will discontinue the next 24 hours if remains hemodynamically stable. (8) Declining functional status: Significant progressive functional decline recently with self-neglect, not getting out of bed, not eating. Seems to gotten worse not better despite improvement in condition during last hospitalization. Unclear how much of this may be secondary to worsening of depression. He will need psychiatric evaluation once he is more stable. Additionally he at least at current time does not appear to understand his medical condition. Question will be whether this will improve with recovery from the acute condition or whether he may end up requiring guardianship. (9) Self neglect: Does not appear to have good insight into his condition at least at this time. Question will be whether this will improve with improvement in his acute condition given recent progressive decline despite recent hospitalization. Will benefit from additional assessment by psychiatry to further assess for depression. Guardianship may end up being needed. (10) Acute hypokalemia: Resolved. (11) Hypomagnesemia: Resolved. (12) Rash: Noted dependent purpuric rash on his buttocks, lower back. As well as around the ankles at the level of sock elastic bands. No blistering. No oral lesions. For now Blane Luis is not suspected, but monitor for any changes in condition. Reposition frequently. (13) Tinea cruris: Terbinafine cream twice daily. Terbinafine cream twice daily. (14) Protein-energy malnutrition: (15) Major depressive disorder, recurrent, moderate: Plan MDD: At the moment unclear how much worsening of depression versus considerable developmental delay may be contributing to his progressive lack of self-care, self-neglect, functional decline. Once he is more stable, will need psychiatry consultation for additional assessment. Continue sertraline for now. Developmental delay Seizure disorder: Continue Keppra, transition to IV for now. Hypothyroidism: TSH noted mildly elevated 5.36, but free T4 is WNL. Continue levothyroxine. Consider reassessment of thyroid function in a few weeks or s ooner in case of symptoms. Asthma: Currently not in exacerbation. Full code Full liquid diet, advance to levels 6 dysphagia diet gradually. Protonix for PUD prophylaxis. SCDs for DVT prophylaxis. Plan for the day: Continue with hydration with normal saline at 75 cc/h. Patient developing hyponatremia so we will switch from D5 NS to normal saline today. Monitor urine output. Maintaining mean artery pressure 65. Holding off on Levophed for now. If remains hemodynamically stable in next 24 hours we will add low-dose beta- buddy for persistent tachycardia. Continue vancomycin and Zosyn for now. Follow-up blood culture and sputum culture. MRSA swab pending. If remains hemodynamically stable for next 24 hours can switch to oral antibiotics to finish a 5-day course. High concern for refeeding syndrome. Replace oral potassium 40 mEq, IV potassium phosphate, 2 g IV magnesium. Follow-up magnesium and phosphorus daily. Advance diet as per speech therapy. As per speech and advance to level 6 dysphagia diet. As patient is recovering from volvulus for now we will advance to liquid diet. High concerns for severe depression. Discussed in detail with psychiatry. Will consult. For now continue with home dose of sertraline and trazodone. Have not been able to get in touch with patient's family. As per nursing staff family was hotline in the ER. Patient would most likely need to pursue guardianship. Case management alerted. Transfer out of ICU to [facility] floor. Attestations Medical Necessity Statement*: Requires further hospitalization for management of resolving hypovolemic shock, dehydration, possible aspiration pneumonia, severe protein energy malnourishment, developing refeeding syndrome while safe discharge planning and guardianship is sought. Diagnoses Pneumonia J18.9 Shock R57.9 Altered mental status R41.82 Partial small bowel obstruction K56.600 Volvulus of intestine K56.2 Coffee ground emesis K92.0 Abnormal urinalysis R82.90 Declining functional status R53.81 Self neglect R46.89 Acute hypokalemia E87.6 Hypomagnesemia E83.42 Rash R21 Tinea cruris B35.6 Protein-energy malnutrition E46 Major depressive disorder, recurrent, moderate F33.1
--- NOTE | 2023-04-08 15:14 | PC.NURSE ---
Patient transferred to second floor, charge nurse took report. Paper chart and meds left with nurse who was at bedside. Skin assessment completed with MS nurse to ensure continuity of care. Patient resting in bed with pillow to turn towards right side. HOB 30. Zosyn and fluids infusing. RA, see vitals charting.
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
[2023-04-08] MEDS: metoprolol tartrate 1 mg/1 mL SDV 5 mL 5 MG IVP (20:18)
[2023-04-08] MEDS: metoprolol tartrate 25 mg Tablet PO (21:24)
--- NOTE | 2023-04-08 22:47 | PC.NURSE ---
2029 patient's heart rate was in 140's in sinus tach bp stable, Dr Martinez notified and order recieved for Iv metoprolol 5mg once. Patient's heart rate went down into the 100s for a while then around 2114 his hr went up to 127, Dr. Martinez ordered metoprolol BID 25mg with first dose now. 2229 patient's hr in the 130's with bp still stable Dr. Leon said to wait for po metoprolol to work and we can give iv if over 130 in an hour.
[2023-04-09] VITALS (12 sets, daily range): BP systolic 105–120; BP diastolic 70–76; PULSE 97–135; RESP 16–23; TEMP 36.3–36.8; O2SAT 95–98
[2023-04-09] MEDS: sodium chloride 0.9% 1,000 ML 75 ML IV ×2 (01:19→15:53)
[2023-04-09] MEDS: metoprolol tartrate 1 mg/1 mL SDV 5 mL 5 MG IVP (03:06)
[2023-04-09] MEDS: piperacillin-tazobactam 3.375 GM in sodium chloride 0.9% (plus) 50 ML IV ×3 (04:36→20:46)
[2023-04-09] MEDS: levothyroxine 75 mcg Tablet PO (05:09)
[2023-04-09] MEDS: sertraline 100 mg Tablet PO (05:09)
--- NOTE | 2023-04-09 06:15 | PC.NURSE ---
Patient recieved another dose of iv metoprolol 5mg at around 3 am for tachycardia, heart rate went down to 100s but is now back in the 130s, Dr. Leon notified and ordered to give this morning's scheduled Po metoprolol early now.
[2023-04-09 06:22] LABS: Basophils % 0.3 %; Eosinophils % 0.2 %; Hematocrit 27.9 % (37-53); Lymphocytes % 7.9 %; Mean Corpuscular HGB Conc 31.9 g/dL (30-55); Mean Corpuscular Hemoglobin 31.1 pg (27-33); Mean Corpuscular Volume 97.6 fl (82-101); Mean Platelet Volume 10.5 fL (7.4-10.4); Monocytes # 0.5 10^3/uL (0.2-0.9); Monocytes % 4.3 %; Neutrophils % 86.7 %; Nucleated Red Blood Cells % 0 %; Platelet Count 255 10^3/cmm (157-399); Red Blood Count 2.86 10^6/uL (3.85-5.65); Red Cell Distribution Width 16.8 % (12.1-15.1); White Blood Count 12.22 10^3/uL (3.29-11.43)
[2023-04-09] MEDS: metoprolol tartrate 25 mg Tablet PO ×2 (06:23→20:22)
[2023-04-09 06:46] LABS: Alanine Aminotransferase 71 U/L (0-41); Albumin Level 3.2 g/dL (3.5-5.2); Alkaline Phosphatase 101 U/L (40-130); Blood Urea Nitrogen 8 mg/dL (6-20); Calcium 8.9 mg/dL (8.5-10.5); Carbon Dioxide 21 mmol/L (22-29); Chloride 101 mmol/L (98-107); Globulin 2.8 g/dL (1.3-4.6); Glomerular Filtration Rate 368.3 mL/min (90-130); Glucose 125 mg/dL (65-115); Osmolality Calculated 278 mOsm/kg (285-295); Sodium 134 mmol/L (136-145); Total Bilirubin 0.6 mg/dL (0.15-1.2)
[2023-04-09 06:51] LABS: Magnesium 1.9 mg/dL (1.7-2.3)
[2023-04-09 06:52] LABS: Anion Gap 15.5 (5-19); Aspartate Amino Transferase 31 U/L (0-40); Phosphorus 2.1 mg/dL (2.5-4.5); Potassium 3.5 mmol/L (3.5-5.1)
[2023-04-09] MEDS: vancomycin 1,250 MG/250 ML PIGGYBACK 250 MG IV ×3 (07:10→23:05)
[2023-04-09] MEDS: terbinafine 1% Cream 15 gm 1 APPLIC TOPICAL ×2 (09:57→17:46)
[2023-04-09] MEDS: nicotine 21 mg Patch 1 PATCH TRANSDERMA (09:58)
[2023-04-09] MEDS: pantoprazole 40 mg SDV IVP ×2 (14:03→23:29)
--- NOTE | 2023-04-09 14:12 | P.PN_ITS ---
Subjective Subjective: Overnight patient had heart rate running in 130s for which she received IV metoprolol and was started on oral metoprolol. Today morning heart rate is better controlled but still remains more than 100. Patient is slightly more awake. Having some more conversation today. He is asking to have more Dr. Ibarra. Appetite remains poor. Otherwise hemodynamically stable and afebrile. Blood work appreciated for white count 12.2, hemoglobin improving to 8.9 from 7.9 yesterday, CMP showing sodium improving to 134, creatinine stable at 0.3, low phosphorus of 2.1, stable calcium and magnesium levels. Vitals/I&O/Wt Last Vital Signs Temp 98.2 F 04/09/23 11:06 Pulse 110 H 04/09/23 11:06 Resp 19 H 04/09/23 11:06 BP 113/73 04/09/23 11:06 Pulse Ox 96 04/09/23 11:06 O2 Del Method Room Air 04/09/23 11:06 O2 Flow Rate 2 04/07/23 00:45 04/08/23 04/09/23 04/09/23 22:59 06:59 14:59 Intake Total 1563.5106 / 2018.5106 1263.75 / 3282.2606 1005 / 1005 Output Total 500 / 1400 300 / 1700 Balance 1063.5106 / 618.5106 963.75 / 1582.2606 1005 / 1005 Weight last 48 hrs Weight 61.144 kg Physical Exam Const: COMMON NORMALS: patient oriented x3 and alert EXAM LIMITATIONS: behavioral limitations GENERAL APPEARANCE: cooperative and disheveled NUTRITIONAL APPEARANCE: thin ORIENTATION/CONSCIOUSNESS: Yes awake, Yes oriented to person and Yes oriented to place; not oriented to time HENMT: COMMON NORMALS: oropharynx normal Eye: COMMON NORMALS: Equal, round and reactive pupils present, negative for conjunctivae normal and no scleral icterus CONJUNCTIVA: No conjunctivae normal PUPIL: Yes Equal, round and reactive pupils present Neck/C-Spine: COMMON NORMALS: no JVD Resp: COMMON NORMALS: normal respiratory effort and clear to auscultation bilaterally AUSCULTATION: clear to auscultation bilaterally Cardio: COMMON NORMALS: no JVD, regular rhythm, S1 normal heart sound present, S2 normal heart sound present and No murmurs present (Cardio) RHYTHM: regular rhythm HEART SOUNDS: S1 normal heart sound present and S2 normal heart sound present GI: COMMON NORMALS: Normal to inspection, nondistended, normoactive bowel sounds present, Soft to palpation and non-tender PALPATION: Yes Soft to palpation Extremity: COMMON NORMALS: no joint enlargement and no pedal edema Neuro: COMMON NORMALS: patient oriented x3 and moves all extremities SENSORIUM/ORIENTATION: Yes alert, Yes oriented to person, Yes oriented to place and No oriented to time Skin: COMMON NORMALS: no rashes or lesions noted GENERAL SKIN EXAM: no rashes or lesions noted OTHER: Purpura like rash over buttocks and lower back, purpura like lines over sock el astic bands over ankles. Redness, skin breakdown and moisture damage of groin, scrotum. Urinary Catheter Management: Winslow: Cath Placed During This Visit: yes Reason for Continuing Indwelling Catheter: Acute Urinary Retention or Obstruction Urinary Catheter Date of Insertion: 04/06/23 Urinary Catheter Time of Insertion: 20:36 Data 04/09/23 06:15 04/09/23 06:15 Micro: Microbiology 04/06/23 20:35 Urine Culture - Final Urine,Clean Catch A&P Assessment and plan (1) Altered mental status: Resolving. We will request physical therapy. On admission encephalopathy most likely in setting of dehydration. Patient does have history of seizure disorder. No seizures reported. Continue to monitor. Appreciate PT and speech evaluation. Patient seems to have significant component of severe depression as well. Appreciate psychiatric recommendations. (2) Major depressive disorder, recurrent, moderate: Appreciate psychiatric recommendations. Will uptitrate Zoloft to 150 mg today. Target dose of Zoloft to 200 mg as per his outpatient [facility] physician. (3) Protein-energy malnutrition: Patient has minimal to low oral intake. We will consult dietitian. Diet will be advanced as per speech evaluation. Patient is at high risk of refeeding syndrome. Continue to monitor magnesium, phosphorus along with potassium daily. Repeat phosphorus today. (4) Pneumonia: Possible aspiration pneumonia. Respiratory viral panel negative. Cannot rule out aspiration pneumonia. MRSA swab and sputum culture still pending. Continue with vancomycin and Zosyn for now. Will finish a 5-day course. Restart diet as per speech evaluation. (5) Partial small bowel obstruction: With possible volvulus. Appreciate surgical recommendations. Most likely intermittent in setting of dehydration. Patient tolerating liquid diet so far. Will uptitrate as per speech evaluation. IV hydration as above. Next continue Zofran as needed, Protonix twice daily for now Monitor electrolytes daily. (6) Declining functional status: Significant progressive functional decline recently with self-neglect, not getting out of bed, not eating. Seems to gotten worse not better despite improvement in condition during last hospitalization. Unclear how much of this may be secondary to worsening of depression. Appreciate psychiatric evaluation and assessment. Patient deemed not a good candidate to make medical decisions or take care of himself. Will consult case management for possible guardianship. (7) Coffee ground emesis: Possible coffee-ground contents/emesis fluid noted on the bed at home by EMS. Suspect secondary to transient hypoperfusion of the gut with shock, on imaging mild/partial SBO, possibility of intermittent volvulus. Hemoglobin has remained stable. Patient has not had any further episodes of emesis. Will restart heparin 5000 every 8 hourly today for DVT prophylaxis. (8) Shock: Resolved. Most likely hypovolemic on admission. Continues to have leukocytosis though trending down. Keep mean artery pressure 65. Hold off on Levophed for now. Continue with IV hydration with NS at 75 cc/h. Monitor hemoglobin. Target hemoglobin will be in more than 7. Hb back to baseline. (9) Volvulus of intestine: Appreciate surgical recommendation (10) Abnormal urinalysis: Follow-up urine culture. Continue antibiotics as above. (11) Self neglect: Does not appear to have good insight into his condition at least at this time. (12) Acute hypokalemia: Resolved. (13) Hypomagnesemia: Resolved. (14) Rash: Noted dependent purpuric rash on his buttocks, lower back. As well as around the ankles at the level of sock elastic bands. No blistering. No oral lesions. For now Blane Luis is not suspected, but monitor for any changes in condition. Reposition frequently. (15) Tinea cruris: Terbinafine cream twice daily. Terbinafine cream twice daily. Plan MDD: At the moment unclear how much worsening of depression versus considerable developmental delay may be contributing to his progressive lack of self-care, self-neglect, functional decline. Once he is more stable, will need psychiatry consultation for additional assessment. Continue sertraline for now. Developmental delay Seizure disorder: Continue Keppra, transition to IV for now. Hypothyroidism: TSH noted mildly elevated 5.36, but free T4 is WNL. Continue levothyroxine. Consider reassessment of thyroid function in a few weeks or sooner in case of symptoms. Asthma: Currently not in exacerbation. Full code Full liquid diet, advance to levels 6 dysphagia diet gradually. Protonix for PUD prophylaxis. SCDs for DVT prophylaxis. Attestations Medical Necessity Statement*: Requires further hospitalization for management of altered mental status in setting of severe depression, severe protein energy malnutrition with high risk for refeeding syndrome, partial small bowel obstruction in setting of dehydration while safe discharge planning and guardianship is sought. Diagnoses Altered mental status R41.82 Major depressive disorder, recurrent, moderate F33.1 Protein-energy malnutrition E46 Pneumonia J18.9 Partial small bowel obstruction K56.600 Declining functional status R53.81 Coffee ground emesis K92.0 Shock R57.9 Volvulus of intestine K56.2 Abnormal urinalysis R82.90 Self neglect R46.89 Acute hypokalemia E87.6 Hypomagnesemia E83.42 Rash R21 Tinea cruris B35.6
[2023-04-09 15:30] LABS: Vancomycin Trough 20.5 ug/mL (10-15)
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
[2023-04-10] VITALS (9 sets, daily range): BP systolic 91–137; BP diastolic 47–86; PULSE 108–126; RESP 16–20; TEMP 36.7–38.2; O2SAT 91–99
[2023-04-10] MEDS: sodium chloride 0.9% 1,000 ML 75 ML IV ×2 (04:07→18:10)
[2023-04-10] MEDS: piperacillin-tazobactam 3.375 GM in sodium chloride 0.9% (plus) 50 ML IV ×3 (04:07→21:37)
--- NOTE | 2023-04-10 05:22 | PC.NURSE ---
pt agreeable to take meds but once in mouth pt would not swallow and spat meds out. swallowing appears difficult for pt at this time
[2023-04-10 06:18] LABS: Basophils % 0.2 %; Eosinophils # 0.1 10^3/uL (0.0-0.8); Eosinophils % 0.4 %; Hematocrit 25.6 % (37-53); Lymphocytes # 0.8 10^3/uL (0.8-4.8); Lymphocytes % 6.3 %; Mean Corpuscular Hemoglobin 31.2 pg (27-33); Mean Corpuscular Volume 97.3 fl (82-101); Mean Platelet Volume 10.6 fL (7.4-10.4); Monocytes # 0.4 10^3/uL (0.2-0.9); Monocytes % 3.1 %; Neutrophils # 11.94 10^3/uL (1.8-7.7); Neutrophils % 89.3 %; Nucleated Red Blood Cells % 0 %; Platelet Count 229 10^3/cmm (157-399); Red Blood Count 2.63 10^6/uL (3.85-5.65); Red Cell Distribution Width 16.5 % (12.1-15.1); White Blood Count 13.38 10^3/uL (3.29-11.43)
[2023-04-10 06:41] LABS: Alanine Aminotransferase 39 U/L (0-41); Albumin Level 2.8 g/dL (3.5-5.2); Alkaline Phosphatase 90 U/L (40-130); Aspartate Amino Transferase 16 U/L (0-40); Blood Urea Nitrogen 7 mg/dL (6-20); Calcium 8.3 mg/dL (8.5-10.5); Carbon Dioxide 20 mmol/L (22-29); Chloride 102 mmol/L (98-107); Globulin 2.5 g/dL (1.3-4.6); Glomerular Filtration Rate 204.3 mL/min (90-130); Glucose 93 mg/dL (65-115); Osmolality Calculated 274 mOsm/kg (285-295); Sodium 133 mmol/L (136-145); Total Bilirubin 0.6 mg/dL (0.15-1.2); Total Protein 5.3 g/dL (6.6-8.7)
[2023-04-10 06:44] LABS: Anion Gap 14.3 (5-19); Magnesium 1.6 mg/dL (1.7-2.3); Phosphorus 2.1 mg/dL (2.5-4.5); Potassium 3.3 mmol/L (3.5-5.1)
[2023-04-10] MEDS: vancomycin 1,250 MG/250 ML PIGGYBACK 250 MG IV (06:58)
[2023-04-10] MEDS: ferrous gluconate 324 mg Tablet PO (08:30)
[2023-04-10] MEDS: metoprolol tartrate 25 mg Tablet PO ×2 (08:30→21:37)
[2023-04-10] MEDS: terbinafine 1% Cream 15 gm 1 APPLIC TOPICAL ×2 (08:34→18:10)
--- NOTE | 2023-04-10 09:00 | PC.NURSE ---
Pt refused Nicotine patch yelling NO! at this nurse. Previous Nicotine patch removed. Notified Dr. Martinez.
[2023-04-10] MEDS: pantoprazole 40 mg SDV IVP (13:00)
[2023-04-10 14:14] LABS: Methicillin-Resist S.aureu PCR NOT DETECTED (NOT DETECTED)
--- NOTE | 2023-04-10 15:18 | P.PN_ITS ---
Subjective Subjective: No acute events overnight. Patient has remained hemodynamically stable and afebrile. He remains on room air. He continues to refuse and have limited oral intake. Patient has been refusing his oral medications on and off. Blood work appreciated for persistent leukocytosis of 14.3, hemoglobin of 8.2, CMP showing stable sodium of 133, creatinine 0.5, potassium of 3.3 with hypomagnesemia and hypophosphatemia. Vitals/I&O/Wt Last Vital Signs Temp 99.5 F 04/10/23 12:00 Pulse 125 H 04/10/23 12:00 Resp 18 04/10/23 12:00 BP 110/79 04/10/23 12:00 Pulse Ox 98 04/10/23 12:00 O2 Del Method Room Air 04/10/23 08:00 O2 Flow Rate 2 04/07/23 00:45 04/10/23 04/10/23 04/10/23 06:59 14:59 22:59 Intake Total 1217.5 / 3987.5 525 / 525 Output Total 350 / 1200 Balance 867.5 / 2787.5 525 / 525 Weight last 48 hrs Weight 66.706 kg Physical Exam Const: COMMON NORMALS: patient oriented x3 and alert EXAM LIMITATIONS: behavioral limitations GENERAL APPEARANCE: cooperative and disheveled NUTRITIONAL APPEARANCE: thin ORIENTATION/CONSCIOUSNESS: Yes awake, Yes oriented to person and Yes oriented to place; not oriented to time HENMT: COMMON NORMALS: oropharynx normal Eye: COMMON NORMALS: Equal, round and reactive pupils present, negative for conjunctivae normal and no scleral icterus CONJUNCTIVA: No conjunctivae normal PUPIL: Yes Equal, round and reactive pupils present Neck/C-Spine: COMMON NORMALS: no JVD Resp: COMMON NORMALS: normal respiratory effort and clear to auscultation margaux aterally AUSCULTATION: clear to auscultation bilaterally Cardio: COMMON NORMALS: no JVD, regular rhythm, S1 normal heart sound present, S2 normal heart sound present and No murmurs present (Cardio) RHYTHM: regular rhythm HEART SOUNDS: S1 normal heart sound present and S2 normal heart sound present GI: COMMON NORMALS: Normal to inspection, nondistended, normoactive bowel sounds present, Soft to palpation and non-tender PALPATION: Yes Soft to palpation Extremity: COMMON NORMALS: no joint enlargement and no pedal edema Neuro: COMMON NORMALS: patient oriented x3 and moves all extremities SENSORIUM/ORIENTATION: Yes alert, Yes oriented to person, Yes oriented to place and No oriented to time Skin: COMMON NORMALS: no rashes or lesions noted GENERAL SKIN EXAM: no ra shes or lesions noted OTHER: Purpura like rash over buttocks and lower back, purpura like lines over sock elastic bands over ankles. Redness, skin breakdown and moisture damage of groin, scrotum. Urinary Catheter Management: Winslow: Cath Placed During This Visit: yes Reason for Continuing Indwelling Catheter: Acute Urinary Retention or Obstruction Urinary Catheter Date of Insertion: 04/06/23 Urinary Catheter Time of Insertion: 20:36 Data 04/10/23 05:40 04/10/23 05:40 A&P Assessment and plan (1) Altered mental status: Resolving. We will request physical therapy. On admission encephalopathy most likely in setting of dehydration. Patient does have history of seizure disorder. No seizures reported. Continue to monitor. Appreciate PT and speech evaluation. Patient seems to have significant component of severe depression as well. Appreciate psychiatric recommendations. (2) Major depressive disorder, recurrent, moderate: Appreciate psychiatric recommendations. Will uptitrate Zoloft to 150 mg today. Target dose of Zoloft to 200 mg as per his outpatient [facility] physician. (3) Protein-energy malnutrition: Patient has minimal to low oral intake. We will consult dietitian. Diet will be advanced as per speech evaluation. Patient is at high risk of refeeding syndrome. Continue to monitor magnesium, phosphorus along with potassium daily. Repeat phosphorus today. (4) Pneumonia: Possible aspiration pneumonia. Respiratory viral panel negative. Cannot rule out aspiration pneumonia. MRSA swab and sputum culture still pending. Continue with vancomycin and Zosyn for now. Will finish a 5-day course. Restart diet as per speech evaluation. (5) Partial small bowel obstruction: With possible volvulus. Appreciate surgical recommendations. Most likely intermittent in setting of dehydration. Patient tolerating liquid diet so far. Will uptitrate as per speech evaluation. IV hydration as above. Next continue Zofran as needed, Protonix twice daily for now Monitor electrolytes daily. (6) Declining functional status: Significant progressive functional decline recently with self-neglect, not getting out of bed, not eating. Seems to gotten worse not better despite improvement in condition during last hospitalization. Unclear how much of this may be secondary to worsening of depression. Appreciate psychiatric evaluation and assessment. Patient deemed not a good candidate to make medical decisions or take care of himself. Will consult case management for possible guardianship. (7) Coffee ground emesis: Possible coffee-ground contents/emesis fluid noted on the bed at home by EMS. Suspect secondary to transient hypoperfusion of the gut with shock, on imaging mild/partial SBO, possibility of intermittent volvulus. Hemoglobin has remained stable. Patient has not had any further episodes of emesis. Will restart heparin 5000 every 8 hourly today for DVT prophylaxis. (8) Shock: Resolved. Most likely hypovolemic on admission. Continues to have leukocytosis though trending down. Keep mean artery pressure 65. Hold off on Levophed for now. Continue with IV hydration with NS at 75 cc/h. Monitor hemoglobin. Target hemoglobin will be in more than 7. Hb back to baseline. (9) Volvulus of intestine: Appreciate surgical recommendation (10) Abnormal urinalysis: Follow-up urine culture. Continue antibiotics as above. (11) Self neglect: Does not appear to have good insight into his condition at least at this time. (12) Acute hypokalemia: Resolved. (13) Hypomagnesemia: Resolved. (14) Rash: Noted dependent purpuric rash on his buttocks, lower back. As well as around the ankles at the level of sock elastic bands. No blistering. No oral lesions. For now Blane Luis is not suspected, but monitor for any changes in condition. Reposition frequently. (15) Tinea cruris: Terbinafine cream twice daily. Terbinafine cream twice daily. Plan MDD: At the moment unclear how much worsening of depression versus considerable developmental delay may be contributing to his progressive lack of self-care, self-neglect, functional decline. Once he is more stable, will need psychiatry consultation for additional assessment. Continue sertraline for now. Developmental delay Seizure disorder: Continue Keppra, transition to IV for now. Hypothyroidism: TSH noted mildly elevated 5.36, but free T4 is WNL. Continue levothyroxine. Consider reassessment of thyroid function in a few weeks or sooner in case of symptoms. Asthma: Currently not in exacerbation. Plan for the day: Continue with current IV antibiotics for overall 5 days. No signs of infection so far other than persistent mild leukocytosis. Cannot rule out occasional aspiration. Diet advanced to dysphagia level 6 as per speech therapy. Appreciate dietitian recommendations. Replace potassium, magnesium and phosphorus. Continue to monitor daily. Appreciate psych evaluation. Increase Zoloft to 150 mg daily. Will plan to eventually increase to home dose of 200 mg. Patient refusing nicotine patch. Given social discord, concerns for functional decline with concerns for neglect placement to SNF and guardianship is being sought. Full code Level 6 dysphagia diet. Protonix for PUD prophylaxis. SCDs for DVT prophylaxis. Attestations Medical Necessity Statement*: Requires further hospitalization for management of severe depression, devel opmental delay with concerns for severe protein energy malnutrition, possibility of refeeding syndrome while guardianship and safe discharge planning is sought. Diagnoses Altered mental status R41.82 Major depressive disorder, recurrent, moderate F33.1 Protein-energy malnutrition E46 Pneumonia J18.9 Partial small bowel obstruction K56.600 Declining functional status R53.81 Coffee ground emesis K92.0 Shock R57.9 Volvulus of intestine K56.2 Abnormal urinalysis R82.90 Self neglect R46.89 Acute hypokalemia E87.6 Hypomagnesemia E83.42 Rash R21 Tinea cruris B35.6
[2023-04-10] MEDS: magnesium sulfate premix 2 GM/50 ML PIGGYBACK IV (18:06)
[2023-04-10] MEDS: vancomycin 1,000 MG in sodium chloride 0.9% 250 ML 250 MG IV (18:13)
[2023-04-10] MEDS: potassium phosphate (mEq K) 40 MEQ in sodium chloride 0.9% (100 ml) 100 ML 27.27 MEQ IV (18:33)
[2023-04-11] VITALS (12 sets, daily range): BP systolic 108–142; BP diastolic 60–112; PULSE 107–140; RESP 19–27; TEMP 37.7–39.2; O2SAT 92–100; BMI 26.9
[2023-04-11] MEDS: pantoprazole 40 mg SDV IVP ×3 (00:07→23:49)
[2023-04-11] MEDS: vancomycin 1,000 MG in sodium chloride 0.9% 250 ML 250 MG IV ×3 (03:07→18:57)
[2023-04-11 05:13] LABS: Basophils % 0.1 %; Eosinophils % 0.3 %; Hematocrit 23.3 % (37-53); Lymphocytes # 0.8 10^3/uL (0.8-4.8); Lymphocytes % 5.7 %; Mean Corpuscular HGB Conc 32.6 g/dL (30-55); Mean Corpuscular Hemoglobin 30.9 pg (27-33); Mean Corpuscular Volume 94.7 fl (82-101); Mean Platelet Volume 10.3 fL (7.4-10.4); Monocytes # 0.5 10^3/uL (0.2-0.9); Monocytes % 3.2 %; Neutrophils # 12.99 10^3/uL (1.8-7.7); Neutrophils % 89.7 %; Nucleated Red Blood Cells % 0 %; Platelet Count 245 10^3/cmm (157-399); Red Blood Count 2.46 10^6/uL (3.85-5.65); Red Cell Distribution Width 16.5 % (12.1-15.1); White Blood Count 14.49 10^3/uL (3.29-11.43)
[2023-04-11] MEDS: levothyroxine 75 mcg Tablet PO (05:27)
[2023-04-11] MEDS: piperacillin-tazobactam 3.375 GM in sodium chloride 0.9% (plus) 50 ML IV ×2 (05:27→13:05)
[2023-04-11] MEDS: sertraline 100 mg Tablet 150 MG PO (05:28)
[2023-04-11 05:41] LABS: Alanine Aminotransferase 29 U/L (0-41); Albumin Level 2.7 g/dL (3.5-5.2); Alkaline Phosphatase 109 U/L (40-130); Anion Gap 14.1 (5-19); Aspartate Amino Transferase 14 U/L (0-40); Blood Urea Nitrogen 6 mg/dL (6-20); Calcium 8.3 mg/dL (8.5-10.5); Carbon Dioxide 22 mmol/L (22-29); Chloride 104 mmol/L (98-107); Globulin 2.3 g/dL (1.3-4.6); Glomerular Filtration Rate 588.1 mL/min (90-130); Glucose 96 mg/dL (65-115); Osmolality Calculated 281 mOsm/kg (285-295); Potassium 3.1 mmol/L (3.5-5.1); Sodium 137 mmol/L (136-145); Total Bilirubin 0.5 mg/dL (0.15-1.2)
[2023-04-11 05:43] LABS: Magnesium 1.6 mg/dL (1.7-2.3); Phosphorus 2.7 mg/dL (2.5-4.5)
--- NOTE | 2023-04-11 09:12 | CTR_ITS ---
PROCEDURE INFORMATION: Exam: CT Chest Without Contrast; Diagnostic Exam date and time: 04/11/2023 3:28 PM Age: 22 years old Clinical indication: Condition or disease; Lung condition and disease; Pneumonia; Additional info: Pna TECHNIQUE: Imaging protocol: Diagnostic computed tomography of the chest without contrast. Radiation optimization: All CT scans at this facility use at least one of these dose optimization techniques: automated exposure control; mA and/or kV adjustment per patient size (includes targeted exams where dose is matched to clinical indication); or iterative reconstruction. REPORTING DATA: Count of CT and Cardiac NM exams in prior 12 months: This patient has received 5 known CTs and 0 known cardiac nuclear medicine studies in the 12 months prior to the current study. COMPARISON: 1. CT chest w con* [id number] 01/18/2022 10:[address] angio chest PE protcl [id number] 04/07/2023 5:12 AM RADIATION DOSE METRICS: Total DLP (mGy-cm): 488.06 FINDINGS: Limitations: Evaluation of the mediastinum and vascular structures is limited without intravenous contrast. Respiratory motion artifact on multiple images that can limit evaluation. Tubes, catheters and devices: Right internal jugular central line with the tip at the cavoatrial junction. Trachea: Tracheobronchial structures are patent. Lungs: Bronchial wall thickening and mucous plugging in the left lower lobe. Reticulonodular interstitial thickening and scattered ground-glass opacities in both lungs with more focal airspace disease in the posterior left lower lobe. Findings are new compared with the prior study and are suspicious for pneumonia. Area of ground-glass opacification in the superior left lower lobe has resolved. Noncalcified nodule in the left lower lobe with an average measurement of 5 mm (series 4, image 34). This is new compared with 01/08/2022. Pleural spaces: No pneumothorax. No pleural effusion. Heart: Stable mild enlargement of the heart. No coronary artery calcification. Esophagus: The esophagus is unremarkable. Mediastinal space: No mediastinal hematoma. No pneumomediastinum. Lymph nodes: Multiple mildly enlarged mediastinal and hilar lymph nodes measuring up to 1.3 cm in short axis, stable compared with 01/18/2022. Vasculature: No evidence for aortic aneurysm. Pulmonary arteries are unremarkable. Pulmonary veins are unremarkable. Bones/joints: No acute fracture. Soft tissues: No acute abnormality in the extrathoracic soft tissues. CT/CT chest wo con [id number] IMPRESSION: 1. Bronchial wall thickening and mucous plugging in the left lower lobe. Reticulonodular interstitial thickening and scattered ground-glass opacities in both lungs with more focal airspace disease in the posterior left lower lobe. Findings are new compared with the prior study and are suspicious for pneumonia. Recommend followup chest imaging to insure resolution of these findings. 2. Multiple mildly enlarged mediastinal and hilar lymph nodes are stable compared with 01/18/2022. 3. Area of ground-glass opacification in the superior left lower lobe has resolved. 4. Noncalcified nodule in the left lower lobe with an average measurement of 5 mm (series 4, image 34). This is new compared with 01/08/2022. For patients at low risk (minimal or absent history of smoking and of other known risk factors), no routine follow-up is indicated. For patients at high risk (history of smoking or of other known risk factors), consider optional CT Chest at 12 months. (Reference: Angie) 5. Incidental/nonacute findings are listed in the report. REFERENCES: Angie Garcia, et al. Guidelines for Management of Incidental Pulmonary Nodules Detected on CT Images: From the Fleischner Society 2017. Radiology. 2017;284(1):228-243.
--- NOTE | 2023-04-11 09:12 | CT_ITS ---
WS: [id number] CT HEAD TECHNIQUE: Noncontrast CT of the head obtained from the skullbase to the vertex. CLINICAL INFORMATION: Break through seizures COMPARISON: CT 04/06/2023 DLP: 1875.[address] scans at [facility] use at least one of these dose optimization techniques: automated e xposure control; mA and/or kV adjustment per patient size (includes targeted exams where dose is matc hed to clinical indication); or iterative reconstruction. FINDINGS: No evidence of intracranial hemorrhage or mass effect. Ventricular system and basal cisterns are marrero nt. Mild small vessel changes with moderate parenchymal volume loss. No extra-axial fluid collections . No evidence of mass or mass effect. Normal sanchez-white differentiation. Paranasal sinuses and mastoid air cells are well aerated. .Normal visualized soft tissues. IMPRESSION: 1. No evidence of intracranial hemorrhage or mass effect. 2. Mild small vessel changes. Moderate parenchymal volume loss. 3. No acute intracranial findings.
[2023-04-11] MEDS: albuterol 2.5 mg/3 mL Neb NEBULIZER ×2 (09:16→19:55)
[2023-04-11] MEDS: multivitamin therapeutic Tablet 1 TAB PO (09:24)
[2023-04-11] MEDS: metoprolol tartrate 25 mg Tablet PO ×2 (09:25→20:15)
[2023-04-11] MEDS: acetaminophen 1,000 MG/100 ML PIGGYBACK 400 MG IV (09:32)
[2023-04-11] MEDS: terbinafine 1% Cream 15 gm 1 APPLIC TOPICAL (09:34)
[2023-04-11] MEDS: sodium chloride 0.9% 1,000 ML 75 ML IV (10:31)
[2023-04-11] MEDS: magnesium sulfate premix 2 GM/50 ML PIGGYBACK IV (10:32)
--- NOTE | 2023-04-11 10:50 | PC.NURSE ---
0900 - this RN witnesses pt with eyes closed, not responding to voice, frothing at mouth. This last approx. 5 seconds. Mouth suctioned, pt opens eyes dilated and non-reactive. Pt then says a few garbled words, eyes reactive at this point. Notified Dr. Martinez, new orders put in and completed.
[2023-04-11] MEDS: lidocaine 1% 5 ML in potassium chloride premix 100 ML 25 ML IV (11:48)
[2023-04-11 12:13] LABS: Add Urine Culture? No; Add Urine Microscopic? YES; Bacteria Urine TRACE /hpf; Bilirubin Urine Neg (Negative); Blood Urine 2+ (Negative); Glucose Urine UA Norm (Normal); Ketones Urine Negative (Negative); Leukocyte Esterase Urine Negative (Negative); Nitrate Urine Negative (Negative); Protein Urine Neg (Negative); RBC Urine 0-4 /hpf (0-2); Squamous Epithelial Cell Urine 0-4 /hpf (0-5); Urine Appearance Clear (CLEAR); Urine Color Yellow (Yellow); Urobilinogen Urine Norm (Negative); WBC Urine 0-4 /hpf (0-5); pH Urine 5 (5-7)
--- NOTE | 2023-04-11 14:28 | PM.PN ---
Subjective Subjective: No acute events overnight. Today morning patient spiked a fever of more than 102. As per the nurse after spiking fever patient had an elevated heart rate and he also had a breakthrough seizure in which she was noticed to have frothing from the mouth which was witnessed only at the end of the seizure and it was witnessed for only for few seconds. Patient was suctioned during the process and maintain his saturations. When seen postprocedure patient is slightly postictal, waking up to verbal stimulus and following with eyes though not able to have conversation, remains on room air. Vitals/I&O/Wt Last Vital Signs Temp 1001.1 F H 04/11/23 11:44 Pulse 107 H 04/11/23 11:44 Resp 22 H 04/11/23 11:44 BP 120/71 04/11/23 11:44 Pulse Ox 92 04/11/23 11:44 O2 Del Method Room Air 04/11/23 11:44 O2 Flow Rate 2 04/07/23 00:45 04/10/23 04/11/23 04/11/23 22:59 06:59 14:59 Intake Total 1593.5106 / 2118.5106 300 / 2418.5106 1760 / 1760 Output Total 700 / 700 650 / 650 Balance 1593.5106 / 2118.5106 -400 / 1718.5106 1110 / 1110 Weight last 48 hrs Weight 69.037 kg Weight 66.706 kg Physical Exam Const: COMMON NORMALS: patient oriented x3 and alert EXAM LIMITATIONS: behavioral limitations GENERAL APPEARANCE: cooperative and disheveled NUTRITIONAL APPEARANCE: thin ORIENTATION/CONSCIOUSNESS: Yes awake, Yes oriented to person and Yes oriented to place; not oriented to time HENMT: COMMON NORMALS: oropharynx normal Eye: COMMON NORMALS: Equal, round and reactive pupils present, negative for conjunctivae normal and no scleral icterus CONJUNCTIVA: No conjunctivae normal PUPIL: Yes Equal, round and reactive pupils present Neck/C-Spine: COMMON NORMALS: no JVD Resp: COMMON NORMALS: normal respiratory effort and clear to auscultation bilaterally AUSCULTATION: clear to auscultation bilaterally Cardio: COMMON NORMALS: no JVD, regular rhythm, S1 normal heart sound present, S2 normal heart sound present and No murmurs present (Cardio) RHYTHM: regular rhythm HEART SOUNDS: S1 normal heart sound present and S2 normal heart sound present GI: COMMON NORMALS: Normal to inspection, nondistended, normoactive bowel sounds present, Soft to palpation and non-tender PALPATION: Yes Soft to palpation Extremity: COMMON NORMALS: no joint enlargement and no pedal edema Neuro: COMMON NORMALS: patient oriented x3 and moves all extremities SENSORIUM/ORIENTATION: Yes alert, Yes oriented to person, Yes oriented to place and No oriented to time Skin: COMMON NORMALS: no rashes or lesions noted GENERAL SKIN EXAM: no rashes or lesions noted OTHER: Purpura like rash over buttocks and lower back, purpura like lines over sock elastic bands over ankles. Redness, skin breakdown and moisture damage of groin, scrotum. Urinary Catheter Management: Winslow: Cath Placed During This Visit: yes Reason for Continuing Indwelling Catheter: Acute Urinary Retention or Obstruction Urinary Catheter Date of Insertion: 04/06/23 Urinary Catheter Time of Insertion: 20:36 Data 04/11/23 04:58 04/11/23 04:58 Micro: Microbiology 04/11/23 09:16 Blood Culture - Preliminary Blood SPECIMEN COLLECTED 04/11/23 09:10 Blood Culture - Preliminary Blood SPECIMEN COLLECTED A&P Assessment and plan (1) Breakthrough seizure: Not sure if it is a breakthrough seizure versus febrile seizure or if fever was because of the seizure. Loaded with 1 g Keppra. Recheck Keppra levels prior to given the loading dose. CT head. Will consult neurology for further recommendations. Seizure and aspiration precautions. Sitter at bedside as patient is having possible breakthrough seizures though unwitnessed. Can plan for EEG but will await neurology recommendations. (2) Altered mental status: Resolving. We will request physical therapy. On admission encephalopathy most likely in setting of dehydration. Patient does have history of seizure disorder. No seizures reported. Continue to monitor. Appreciate PT and speech evaluation. Patient seems to have significant component of severe depression as well. Appreciate psychiatric recommendations. (3) Major depressive disorder, recurrent, moderate: Appreciate psychiatric recommendations. Will uptitrate Zoloft to 150 mg today. Target dose of Zoloft to 200 mg as per his outpatient [facility] physician. (4) Protein-energy malnutrition: Patient continues to have poor oral intake. Appreciate dietitian recommendations. Patient seems to be doing better with liquid diet so we will switch to full liquid. Add diet stimulant with Ritalin 10 mg twice daily 8 AM and 2 PM before meals. Patient is at high risk of refeeding syndrome. Continue to monitor magnesium, phosphorus along with potassium daily. Repeat phosphorus today. (5) Fever: Patient having persistent fever since last night. Has remained hemodynamically stable. White count persistently but stable elevated around 14,000. Repeat blood culture, respiratory viral panel urinalysis. Repeat CT chest with concerns for aspiration pneumonia though less likely as patient remains on room air. We will also do CT abdomen pelvis. Switch to imipenem, stop Zosyn. Continue with IV vancomycin. (6) Pneumonia: Diet changed as per speech evaluation. Rest of treatment as above. (7) Acute hypokalemia: Repeat 40 mg of IV along with 40 minutes of potassium phosphate. Recheck in AM. (8) Hypomagnesemia: Replete 2 g again. (9) Partial small bowel obstruction: With possible volvulus. Appreciate surgical recommendations. Most likely intermittent in setting of dehydration. Patient tolerating liquid diet so far. Will uptitrate as per speech evaluation. IV hydration as above. Next continue Zofran as needed, Protonix twice daily for now Monitor electrolytes daily. (10) Declining functional status: Significant progressive functional decline recently with self-neglect, not getting out of bed, not eating. Seems to gotten worse not better despite improvement in condition during last hospitalization. Unclear how much of this may be secondary to worsening of depression. Appreciate psychiatric evaluation and assessment. Patient deemed not a good candidate to make medical decisions or take care of himself. Will consult case management for possible guardianship. (11) Coffee ground emesis: Possible coffee-ground contents/emesis fluid noted on the bed at home by EMS. Suspect secondary to transient hypoperfusion of the gut with shock, on imaging mild/partial SBO, possibility of intermittent volvulus. Hemoglobin has remained stable. Patient has not had any further episodes of emesis. Will restart heparin 5000 every 8 hourly today for DVT prophylaxis. (12) Shock: Resolved. Most likely hypovolemic on admission. Continues to have leukocytosis though trending down. Keep mean artery pressure 65. Hold off on Levophed for now. Continue with IV hydration with NS at 75 cc/h. Monitor hemoglobin. Target hemoglobin will be in more than 7. Hb back to baseline. (13) Volvulus of intestine: Appreciate surgical recommendation (14) Abnormal urinalysis: Follow-up urine culture. Continue antibiotics as above. (15) Self neglect: Does not appear to have good insight into his condition at least at this time. (16) Rash: Noted dependent purpuric rash on his buttocks, lower back. As well as around the ankles at the level of sock elastic bands. No blistering. No oral lesions. For now Blane Smith is not suspected, but monitor for any changes in condition. Reposition frequently. (17) Tinea cruris: Terbinafine cream twice daily. Terbinafine cream twice daily. Plan MDD: At the moment unclear how much worsening of depression versus considerable developmental delay may be contributing to his progressive lack of self-care, self-neglect, functional decline. Once he is more stable, will need psychiatry consultation for additional assessment. Continue sertraline for now. Developmental delay Seizure disorder: Continue Keppra, transition to IV for now. Hypothyroidism: TSH noted mildly elevated 5.36, but free T4 is WNL. Continue levothyroxine. Consider reassessment of thyroid function in a few weeks or sooner in case of symptoms. Asthma: Currently not in exacerbation. Given social discord, concerns for functional decline with concerns for neglect placement to SNF and guardianship is being sought. Full code Level 6 dysphagia diet. Protonix for PUD prophylaxis. SCDs for DVT prophylaxis. Attestations Medical Necessity Statement*: Requires further hospitalization for safe discharge planning and guardianship is sought, breakthrough seizure, febrile episode while infectious causes are ruled out. Diagnoses Breakthrough seizure G40.919 Altered mental status R41.82 Major depressive disorder, recurrent, moderate F33.1 Protein-energy malnutrition E46 Fever R50.9 Pneumonia J18.9 Acute hypokalemia E87.6 Hypomagnesemia E83.42 Partial small bowel obstruction K56.600 Declining functional status R53.81 Coffee ground emesis K92.0 Shock R57.9 Volvulus of intestine K56.2 Abnormal urinalysis R82.90 Self neglect R46.89 Rash R21 Tinea cruris B35.6
--- NOTE | 2023-04-11 14:46 | CTR_ITS ---
PROCEDURE INFORMATION: Exam: CT Abdomen And Pelvis With Contrast Exam date and time: 04/11/2023 3:31 PM Age: 22 years old Clinical indication: Fever; Additional info: Infectious source rule out TECHNIQUE: Imaging protocol: Computed tomography of the abdomen and pelvis with contrast. Radiation optimization: All CT scans at this facility use at least one of these dose optimization techniques: automated exposure control; mA and/or kV adjustment per patient size (includes targeted exams where dose is matched to clinical indication); or iterative reconstruction. Contrast material: OMNI 350; Contrast volume: 100 ml; Contrast route: INTRAVENOUS (IV); REPORTING DATA: Count of CT and Cardiac NM exams in prior 12 months: This patient has received 5 known CTs and 0 known cardiac nuclear medicine studies in the 12 months prior to the current study. COMPARISON: CT abdomen pelvis w con* [id number] 04/06/2023 8:11 PM RADIATION DOSE METRICS: Total DLP (mGy-cm): 553.25 FINDINGS: Limitations: Motion artifact on multiple images that can limit evaluation. Liver: The liver is unremarkable. Gallbladder and bile ducts: The gallbladder is unremarkable. No biliary ductal dilatation. Pancreas: The pancreas is unremarkable. No pancreatic ductal dilatation. Spleen: The spleen is unremarkable. Adrenal glands: The right and left adrenal glands are unremarkable. Kidneys and ureters: The right and left kidneys are unremarkable. The right and left ureters are unremarkable. Stomach and bowel: Interval development of mild wall thickening with surrounding mild inflammation of the entire colon. No acute abnormality in the small bowel. The stomach is unremarkable for the degree of distension. Tiny focus of increased density in the lumen of the cecum (series 5, image 23). Appendix: Interval development of mild dilatation of the appendix measuring 9.1 mm (series 3, image 57). There is also interval development of mild wall thickening of the appendix. Intraperitoneal space: No free intraperitoneal air. No ascites. No loculated fluid collections to suggest an abscess. Vasculature: No evidence for aortic aneurysm or aortic dissection. Hepatic veins, portal veins, splenic vein, and SMV are patent. Lymph nodes: No lymphadenopathy. Urinary bladder: The bladder is decompressed by a Winslow catheter. Air in the bladder, likely related to Winslow catheter placement. Reproductive: Unremarkable as visualized. Bones/joints: Linear areas of sclerosis at the superior right and left femoral heads and mild fragmentation at the left femoral head. Findings are stable and suspicious for avascular necrosis. Soft tissues: No acute abnormality in the extra-abdominal soft tissues. CT/CT abdomen pelvis w con* [id number] IMPRESSION: 1. Interval development of findings consistent with mild pancolitis. Findings may be infectious or inflammatory in nature, or could suggest pseudomembranous colitis in the appropriate clinical situation. Recommend clinical correlation. 2. Interval development of mild inflammatory changes involving the appendix, it is uncertain whether this may be due to primary appendicitis or secondary to development of colitis. 3. Tiny focus of increased density in the lumen of the cecum (series 5, image 23). A colonic bleed can not be ruled out. Nuclear medicine imaging with tagged red blood cell scan may be obtained for further evaluation as clinically indicated. 4. 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 5. Incidental/nonacute findings are listed in the report. COMMENTS: THIS REPORT CONTAINS FINDINGS THAT MAY BE CRITICAL TO PATIENT CARE. The findings were verbally communicated via telephone conference with EMIL Neumann at 5:27 PM CDT on 04/11/2023. The findings were acknowledged and understood.
--- NOTE | 2023-04-11 15:08 | P.PN_ITS ---
Subjective Subjective: History of Present Illness Hussein Man is a 22 year old male who is mentally challenged with developmental delay.? Patient has a history of intractable epilepsy treated with Depakote.? Patient admitted with recurrent seizures and urinary tract infection.? Patient was also observed to have thrombocytopenia of unclear etiology but possibility of Depakote causing the low platelet count is of concern.? Patient was apparently started on Keppra and neurology/epilepsy c onsult was obtained to assist in the patient's care.? The patient is currently alert and in no apparent distress.? He is currently receiving IV blood.? Patient is poor historian and unable to give any details with regards to his epilepsy.? His mother nor any other family member was present at the patient's bedside.? The patient reports a history of chronic weakness.? He denies pain, headaches, swallowing difficulty, chest pain shortness of breath or abdominal pain or visual difficulty.? During his hospitalization, Depakote was discontinued secondary to thrombocytopenia.? Patient was started on IV Keppra.? He has continued on IV Keppra 500 mg twice a day.? Trough Keppra level pending.? De larson was reported to have what was described as possible pseudoseizures on 03/18/2023 where he was speaking with the nurse and told the nurse to, Watch this , and proceeded to have a spell with the nurse that is caring for the patient this morning could not give any further details.?I was contacted today on 04/11/2023 to reevaluate the patient secondary to patient experiencing a seizure. His temperature was reported to be 102. Patient was loaded with IV Keppra and continued on IV Keppra 500 mg p.o. twice daily. Repeat head CT ordered but has not been completed at the time of this dictation. Patient currently lying in bed. He is arousable to verbal stimuli but does not speak or follow commands. Past medical history: Intractable epilepsy Urinary tract infection Generalized weakness Developmental delay Current medications: IV Keppra 500 mg twice daily Diazepam (Valtoco) 5 mg (0.1 mL) every 4 hours as needed for seizures Zyrtec 10 mg p.o. every morning Flonase nasal spray 1 inhalation 4 times a day as needed Tylenol elixir 1000 mg p.o. every 6 hours as needed for pain Albuterol multidose inhaler 90 mcg per accusation 1 puff every 4 hours as needed Synthroid 75 mcg p.o. daily Singulair 10 mg p.o. daily Zoloft 100 mg p.o. every morning Trazodone 100 mg p.o. nightly as needed for sleep Protonix 40 mg p.o. nightly Drug allergies: Depakote which resulted in thrombocytopenia requiring blood transfusion Past medications: Depakote which resulted in thrombocytopenia Habits: Unknown Family history: Unknown Social history: The patient reports that he lives with his mother, father and a brother Review of systems: Unable to obtain secondary to patient's medical condition Vitals/I&O/Wt Last Vital Signs Temp 1001.1 F H 04/11/23 11:44 Pulse 107 H 04/11/23 11:44 Resp 22 H 04/11/23 11:44 BP 120/71 04/11/23 11:44 Pulse Ox 92 04/11/23 11:44 O2 Del Method Room Air 04/11/23 11:44 O2 Flow Rate 2 04/07/23 00:45 04/11/23 04/11/23 04/11/23 06:59 14:59 22:59 Intake Total 300 / 2418.5106 1760 / 1760 Output Total 700 / 700 650 / 650 Balance -400 / 1718.5106 1110 / 1110 Weight last 48 hrs Weight 152 lb 3.2 oz Weight 147 lb 1 oz Physical Exam Narrative: The patient is Arousable to verbal stimuli but was nonverbal. He moves spont aneously and then goes back to sleep.? He was in no apparent distress.? Patient has a history of some intellectual disability.? Patient does follow commands.? Head atraumatic.? Neck supple.? Cranial nerves II through XII grossly intact.? Pupils 4 mm.? Pupils equal round and reactive to light and accommodation.? Motor examination revealed left lower extremity weakness.? Sensory examination intact to gross modalities.? Plantar responses flexor bilaterally.? Throat clear.? Lungs clear.? Heart regular rhythm and rate.? Extremities were negative for clubbing or cyanosis. Urinary Catheter Management: Winslow: Cath Placed During This Visit: yes Reason for Continuing Indwelling Catheter: Acute Urinary Retention or Obstruction Urinary Catheter Date of Insertion: 04/06/23 Urinary Catheter Time of Insertion: 20:36 Data 04/11/23 04:58 11/03/23 04:58 Micro: Microbiology 04/11/23 09:16 Blood Culture - Preliminary Blood SPECIMEN COLLECTED 04/11/23 09:10 Blood Culture - Preliminary Blood SPECIMEN COLLECTED A&P Assessment and plan (1) Intractable epilepsy: Impression: 1.? Intractable epilepsy with reports of recurrent seizures on 04/11/2023 1a.? Possible pseudoseizures (nonepileptic event) on 03/18/2023 2.? Developmental delay with intellectual disability 3.? Thrombocytopenia etiology unclear.? Must consider thrombocytopenia being related to Depakote since platelet count appears to be improving since discontinuing Depakote 4.? Anemia and thrombocytopenia status post blood transfusion on 03/17/2023 Plan: 1.? Will schedule surface EEG recording for 42 minutes to assess for subclinical seizure activity if the patient's mental status and seizures do not remain stable 2.? Awaiting Keppra level 3.? Will adjust Keppra as needed/tolerated 5.? Continue seizure precautions per state law 6. Valium nasal spray (Valtoco) 5 mg per 0.1 mL 1 spray in 1 nostril as needed for seizures may repeat x1 in 4 hours if needed for breakthrough seizures 7. We will consider IV Ativan, IV fosphenytoin, or IV Vimpat if needed (2) Breakthrough seizure: Attestations Medical Necessity Statement*: The patient was reevaluated by neurology secondary to reports of breakthrough seizures and patient with history of intractable epilepsy and developmental delay Coding Level of Care Code 53140 Diagnoses Intractable epilepsy G40.919 Breakthrough seizure G40.919
--- NOTE | 2023-04-11 15:16 | PC.NURSE ---
Sitter reports pt had another seizure lasting approx 30 seconds. States that his eyes rolled in the back of his head and his right arm stiffened and convulsed. Notified Dr. Martinez. Ativan given per orders. Transferred to ICU p CT scan.
[2023-04-11] MEDS: LORazepam 2 mg/mL INJ 1 mL 1 MG IVP (15:49)
--- NOTE | 2023-04-11 15:59 | PC.NURSE ---
Arrived from [facility]. opens eyes to physical stimuli, lethargic at this time
[2023-04-11] MEDS: meropenem 1,000 MG in sodium chloride 0.9% (plus) 50 ML 100 MG IV ×2 (16:18→22:21)
[2023-04-11 18:03] LABS: Erythrocyte Sedimentation Rate 11 mm/hr (0-10)
[2023-04-11 18:36] LABS: C Reactive Protein 103.6 mg/L (0.0-4.9)
[2023-04-11 18:48] LABS: Adenovirus Not Detected (NOT DETECT); Chlamydia Pneumoniae Not Detected (NOT DETECT); Coronavirus 229E,HKU1,NL63,OC4 Not Detected (NOT DETECT); Human Metapneumovirus Not Detected (NOT DETECT); Human Rhinovirus/Enterovirus Not Detected (NOT DETECT); Influenza A Not Detected (NOT DETECT); Influenza A H1 Not Detected (NOT DETECT); Influenza A H1-2009 Not Detected (NOT DETECT); Influenza A H3 Not Detected (NOT DETECT); Influenza B Not Detected (NOT DETECT); Mycoplasma Pneumoniae Not Detected (NOT DETECT); Parainfluenza Virus Type 1 Not Detected (NOT DETECT); Parainfluenza Virus Type 2 Not Detected (NOT DETECT); Parainfluenza Virus Type 3 Not Detected (NOT DETECT); Parainfluenza Virus Type 4 Not Detected (NOT DETECT); Respiratory Syncytial Virus A Not Detected (NOT DETECT); Respiratory Syncytial Virus B Not Detected (NOT DETECT); SARS-COV-2 Not Detected (NOT DETECT)
[2023-04-11 19:00] LABS: Vancomycin Trough 16.6 ug/mL (10-15)
[2023-04-11] MEDS: vancomycin 125 mg Capsule PO (20:15)
[2023-04-12] VITALS (29 sets, daily range): BP systolic 81–147; BP diastolic 65–106; PULSE 116–149; RESP 18–28; TEMP 37.5–38.8; O2SAT 90–97
[2023-04-12] MEDS: vancomycin 125 mg Capsule PO ×3 (01:57→13:09)
[2023-04-12] MEDS: vancomycin 1,000 MG in sodium chloride 0.9% 250 ML 250 MG IV ×3 (02:48→19:26)
[2023-04-12] MEDS: sodium chloride 0.9% 1,000 ML 75 ML IV ×2 (02:50→16:30)
--- NOTE | 2023-04-12 03:15 | PC.NURSE ---
Notified Dr. Leon of patients temp of 101.8 axillary. Order given for tylenol 650mg PO every 6 hours prn elevated temp.
[2023-04-12] MEDS: acetaminophen 325 mg Tablet 650 MG PO (04:10)
[2023-04-12 04:49] LABS: Basophils % 0.1 %; Eosinophils % 0.2 %; Hematocrit 22.2 % (37-53); Lymphocytes % 6.7 %; Mean Corpuscular Hemoglobin 31.1 pg (27-33); Mean Corpuscular Volume 97.4 fl (82-101); Monocytes # 0.7 10^3/uL (0.2-0.9); Monocytes % 4.3 %; Neutrophils # 13.11 10^3/uL (1.8-7.7); Neutrophils % 87.6 %; Nucleated Red Blood Cells % 0.2 %; Platelet Count 276 10^3/cmm (157-399); Red Blood Count 2.28 10^6/uL (3.85-5.65); White Blood Count 14.98 10^3/uL (3.29-11.43)
[2023-04-12 05:11] LABS: Alanine Aminotransferase 21 U/L (0-41); Albumin Level 2.5 g/dL (3.5-5.2); Alkaline Phosphatase 137 U/L (40-130); Anion Gap 14.1 (5-19); Aspartate Amino Transferase 13 U/L (0-40); Blood Urea Nitrogen 4 mg/dL (6-20); Carbon Dioxide 22 mmol/L (22-29); Chloride 108 mmol/L (98-107); Globulin 2.4 g/dL (1.3-4.6); Glomerular Filtration Rate 368.3 mL/min (90-130); Glucose 91 mg/dL (65-115); Osmolality Calculated 288 mOsm/kg (285-295); Potassium 3.1 mmol/L (3.5-5.1); Sodium 141 mmol/L (136-145); Total Bilirubin 0.5 mg/dL (0.15-1.2); Total Protein 4.9 g/dL (6.6-8.7)
[2023-04-12 05:31] LABS: Slide Review Slide Review Perform
[2023-04-12] MEDS: levothyroxine 75 mcg Tablet PO (05:35)
[2023-04-12] MEDS: sertraline 100 mg Tablet 150 MG PO (05:35)
[2023-04-12] MEDS: meropenem 1,000 MG in sodium chloride 0.9% (plus) 50 ML 100 MG IV ×3 (06:17→22:55)
[2023-04-12 08:14] LABS: Levetiracetam Immunoassy 9.2 mcg/mL (6.0-46.0)
[2023-04-12] MEDS: nicotine 21 mg Patch 1 PATCH TRANSDERMA (08:38)
[2023-04-12] MEDS: metoprolol tartrate 25 mg Tablet PO (08:38)
[2023-04-12] MEDS: methylphenidate 10 mg Tablet PO ×2 (08:38→13:11)
[2023-04-12] MEDS: multivitamin therapeutic Tablet 1 TAB PO (08:38)
[2023-04-12] MEDS: ferrous gluconate 324 mg Tablet PO (08:40)
[2023-04-12] MEDS: terbinafine 1% Cream 15 gm 1 APPLIC TOPICAL (08:58)
--- NOTE | 2023-04-12 10:19 | P.PN_ITS ---
Subjective Subjective: 22-year-old male who is known to me for imaging suggestive of possible intestinal volvulus during this admission. Over the last 24 hours patient has had worsening his clinical status and therefore was transferred to the ICU, a repeat CT of the abdomen and pelvis is now remarkable for pancolitis. This new finding is highly suggestive for infectious etiology probably C. difficile, additional differential includes ulcerative colitis, but this is lowering the possibility due to lack of clinical history and severely acute onset. On bedside examination patient is minimally communicative, does not complain of abdominal pain at this time. Vitals/I&O/Wt Last Vital Signs Temp 100.8 F H 04/12/23 08:00 Pulse 136 H 04/12/23 08:00 Resp 20 H 04/12/23 08:00 BP 112/88 04/12/23 08:00 Pulse Ox 95 04/12/23 08:00 O2 Del Method Room Air 04/12/23 07:56 O2 Flow Rate 2 04/07/23 00:45 04/11/23 04/12/23 04/12/23 22:59 06:59 14:59 Intake Total 860 / 2620 960 / 3580 165 / 165 Output Total 1750 / 2400 Balance 860 / 1970 -790 / 1180 165 / 165 Weight last 48 hrs Weight 152 lb Weight 152 lb 3.2 oz Physical Exam Const: OTHER: Patient communicates minimally, appears with mild distress. Chest: OTHER: Patient is tachypneic GI: OTHER: Abdomen is soft, nondistended, there is minimal tenderness in the colonic margin, no evidence of peritonitis. Urinary Catheter Management: Winslow: Cath Placed During This Visit: yes Reason for Continuing Indwelling Catheter: Accurate Measurement of Urinary Output in Critically Ill Patients Urinary Catheter Date of Insertion: 04/06/23 Urinary Catheter Time of Insertion: 20:36 Data 04/12/23 04:20 04/12/23 04:20 Micro: Microbiology 04/11/23 09:16 Blood Culture - Preliminary Blood NEGATIVE TO DATE 04/11/23 09:10 Blood Culture - Preliminary Blood NEGATIVE TO DATE 04/06/23 20:56 Blood Culture - Final Blood NO GROWTH AFTER 5 DAYS 04/06/23 19:52 Blood Culture - Final Blood NO GROWTH AFTER 5 DAYS A&P Assessment and plan (1) Intractable epilepsy: (2) Protein-energy malnutrition: (3) Pancolitis: Plan After complete history physical examination and review of all available clinical data the following is my assessment. Patient noted to have pancolitis, likely etiology in the current clinical setting is C. difficile colitis. Empiric vancomycin has been started and C. difficile sample has been collected. If no improvement over the next 24 to 48 hours it may be appropriate to start steroids as a second differential is inflammatory bowel disease. If patient continues clinical worsening, requiring intubation and shows no evidence of improvement to therapy, referral to tertiary center with GI availability should be considered by primary team for further work-up of cause of pancolitis. At the moment there is no indication for surgical intervention, general surgery will closely follow- up. Attestations Medical Necessity Statement*: Patient will require ongoing care for 72 or more hours for intractable epilepsy and pancolitis. Coding Level of Care Code 96721 Diagnoses Intractable epilepsy G40.919 Protein-energy malnutrition E46 Pancolitis K51.00
[2023-04-12 11:19] LABS: Magnesium 1.6 mg/dL (1.7-2.3)
[2023-04-12] MEDS: magnesium sulfate premix 1 GM/100 ML PIGGYBACK IV (11:49)
[2023-04-12] MEDS: pantoprazole 40 mg SDV IVP (11:51)
[2023-04-12] MEDS: acetaminophen 1,000 MG/100 ML PIGGYBACK 400 MG IV (11:53)
[2023-04-12] MEDS: lidocaine 1% 5 ML in potassium chloride premix 100 ML 26.25 ML IV ×2 (12:02→15:04)
[2023-04-12] MEDS: lacosamide 100 MG in sodium chloride 0.9% 50 ML 120 MG IV (12:04)
[2023-04-12 12:46] LABS: HIV 1 & 2 Antibody Non-Reactive (Non-Reactiv); HIV 1 & 2 Antigen Non-Reactive (Non-Reactiv)
[2023-04-12] MEDS: ibuprofen 200 mg Tablet 400 MG PO (13:11)
[2023-04-12] MEDS: albuterol 2.5 mg/3 mL Neb NEBULIZER (16:05)
[2023-04-12] MEDS: AA-Dex 4.25%-5% w/Lytes 1,000 ML with multivitamin inj 10 ML IV (16:05)
--- NOTE | 2023-04-12 16:52 | PM.PN ---
Subjective Subjective: No acute events overnight. As per nursing staff patient did not have any further episode of seizure. Patient does remain poorly responsive to waking up with physical stimulus. Not responding verbally. Has remained hemodynamically stable. Tmax of 101 Fahrenheit. Patient is persistently febrile. Blood work shows persistent leukocytosis, hemoglobin of 7.1, CMP showing potassium of 3.1, creatinine stable at 0.3, lactate at 1, Keppra level appropriate. Appreciate CT abdomen pelvis done yesterday. Vitals/I&O/Wt Last Vital Signs Temp 99.6 F 04/12/23 16:00 Pulse 124 H 04/12/23 16:16 Resp 22 H 04/12/23 16:05 BP 113/81 04/12/23 16:00 Pulse Ox 96 04/12/23 16:05 O2 Del Method Room Air 04/12/23 16:05 O2 Flow Rate 2 04/07/23 00:45 04/12/23 04/12/23 04/12/23 06:59 14:59 22:59 Intake Total 960 / 3580 675 / 675 1479.625 / 2154.625 Output Total 1750 / 2400 Balance -790 / 1180 675 / 675 1479.625 / 2154.625 Weight last 48 hrs Weight 68.946 kg Weight 69.037 kg Physical Exam Const: COMMON NORMALS: patient oriented x3 and alert; apparent distress, negative for average body habitus, negative for healthy appearing and negative for well nourished EXAM LIMITATIONS: altered mental status and behavioral limitations GENERAL APPEARANCE: cooperative and disheveled; not well kempt NUTRITIONAL APPEARANCE: thin and underweight ORIENTATION/CONSCIOUSNESS: Yes awake, Yes oriented to person and Yes oriented to place; not oriented to time OTHER: GCS: E3 M4 V2, maintaining airway HENMT: COMMON NORMALS: oropharynx normal Eye: COMMON NORMALS: Equal, round and reactive pupils present, negative for conjunctivae normal and no scleral icterus CONJUNCTIVA: No conjunctivae normal PUPIL: Yes Equal, round and reactive pupils present Neck/C-Spine: COMMON NORMALS: no JVD Resp: COMMON NORMALS: normal respiratory effort and clear to auscultation bilaterally AUSCULTATION: clear to auscultation bilaterally Cardio: COMMON NORMALS: no JVD, regular rhythm, S1 normal heart sound present, S2 normal heart sound present and No murmurs present (Cardio) RHYTHM: regular rhythm HEART SOUNDS: S1 normal heart sound present and S2 normal heart sound present GI: COMMON NORMALS: Normal to inspection, nondistended, normoactive bowel sounds present, Soft to palpation and non-tender PALPATION: Yes Soft to palpation Extremity: COMMON NORMALS: no joint enlargement and no pedal edema Neuro: COMMON NORMALS: patient oriented x3 and moves all extremities SENSORIUM/ORIENTATION: Yes alert, Yes oriented to person, Yes oriented to place and No oriented to time Psych: APPEARANCE: No well kempt Skin: COMMON NORMALS: no rashes or lesions noted GENERAL SKIN EXAM: no rashes or lesions noted OTHER: Purpura like rash over buttocks and lower back, purpura like lines over sock elastic bands over ankles. Redness, skin breakdown and moisture damage of groin, scrotum. Urinary Catheter Management: Winslow: Cath Placed During This Visit: yes Reason for Continuing Indwelling Catheter: Accurate Measurement of Urinary Output in Critically Ill Patients Urinary Catheter Date of Insertion: 04/06/23 Urinary Catheter Time of Insertion: 20:36 Data 04/12/23 04:20 04/12/23 04:20 Micro: Microbiology 04/11/23 09:16 Blood Culture - Preliminary Blood NEGATIVE TO DATE 04/11/23 09:10 Blood Culture - Preliminary Blood NEGATIVE TO DATE 04/06/23 20:56 Blood Culture - Final Blood NO GROWTH AFTER 5 DAYS 04/06/23 19:52 Blood Culture - Final Blood NO GROWTH AFTER 5 DAYS A&P Assessment and plan (1) Breakthrough seizure: Not sure if it is a breakthrough seizure versus febrile seizure or if fever was because of the seizure. Keppra levels are reported normal. Appreciate neurology recommendations. CT head negative for acute abnormality. Patient's mentation continues to remain poor, not sure if patient is having subclinical seizures. Discussed in detail with neurology. Plan for EEG as per neurology when available. For now we will start on Vimpat 100 mg twice daily. Seizure precaution. Also discussed with neurology that given persistent fever, leukocytosis with these breakthrough seizures cannot rule out meningitis the patient has been covered with vancomycin and Zosyn since admission. Neurology wants to get lumbar puncture with radiology when available. Goal will be low yield as patient is consistently on antibiotics. (2) Altered mental status: Worsening again. Most likely in setting of seizures. Seizure precaution, aspiration precaution. Plan for PT again once patient's mentation is improving. Appreciate psych recommendations. (3) Major depressive disorder, recurrent, moderate: Appreciate psychiatric recommendations. Will uptitrate Zoloft to 150 mg today. Target dose of Zoloft to 200 mg as per his outpatient [facility] physician. (4) Protein-energy malnutrition: Patient continues to have poor oral intake. Appreciate dietitian recommendations. Patient's oral intake continues to remain poor. Started on Ritalin 10 mg 8 AM and 8 PM before meals today. Patient having refeeding syndrome. Started on TPN. Central line in place. Monitor electrolytes, magnesium and phosphorus daily. (5) Fever: With persistent leukocytosis. Appreciate CT chest abdomen pelvis results. Follow-up blood culture, stool studies. Continue with vancomycin, broaden coverage with IV meropenem. IV Tylenol 1 g every 8 hours as needed. Start on trial of Motrin 200 mg every 6 hourly. (6) Pancolitis: Seen on CT abdomen pelvis done on 04/11. Most likely infectious in nature as did not have colitis on scan on admission. Lactate normal. Await stool studies. Stool studies will take few days to come back for now we will start patient on oral vancomycin 125 mg every 6 hourly. Switch to TPN. Currently patient is having poor oral intake. IV Protonix 40 mg twice daily. Appreciate surgical recommendations. (7) Pneumonia: Diet changed as per speech evaluation. Rest of treatment as above. (8) Acute hypokalemia: Replete 80 mg IV again. Monitor daily. (9) Hypomagnesemia: Replete 1 g again. (10) Partial small bowel obstruction: With possible volvulus. Appreciate surgical recommendations. Most likely intermittent in setting of dehydration. Patient tolerating liquid diet so far. Will uptitrate as per speech evaluation. IV hydration as above. Next continue Zofran as needed, Protonix twice daily for now Monitor electrolytes daily. (11) Declining functional status: Significant progressive functional decline recently with self-neglect, not getting out of bed, not eating. Seems to gotten worse not better despite improvement in condition during last hospitalization. Unclear how much of this may be secondary to worsening of depression. Appreciate psychiatric evaluation and assessment. Patient deemed not a good candidate to make medical decisions or take care of himself. Will consult case management for possible guardianship. (12) Coffee ground emesis: Possible coffee-ground contents/emesis fluid noted on the bed at home by EMS. Suspect secondary to transient hypoperfusion of the gut with shock, on imaging mild/partial SBO, possibility of intermittent volvulus. Hemoglobin has remained stable. Patient has not had any further episodes of emesis. Will restart heparin 5000 every 8 hourly today for DVT prophylaxis. (13) Shock: Resolved. Most likely hypovolemic on admission. Continues to have leukocytosis though trending down. Keep mean artery pressure 65. Hold off on Levophed for now. Continue with IV hydration with NS at 75 cc/h. Once TPN is at target we will decrease the dose of IV fluids. Monitor hemoglobin. Target hemoglobin will be in more than 7. Hb back to baseline. (14) Volvulus of intestine: Appreciate surgical recommendation (15) Abnormal urinalysis: Follow-up urine culture. Continue antibiotics as above. (16) Self neglect: Does not appear to have good insight into his condition at least at this time. (17) Rash: Noted dependent purpuric rash on his buttocks, lower back. As well as around the ankles at the level of sock elastic bands. No blistering. No oral lesions. For now Blane Luis is not suspected, but monitor for any changes in condition. Reposition frequently. (18) Tinea cruris: Terbinafine cream twice daily. Terbinafine cream twice daily. Plan MDD: At the moment unclear how much worsening of depression versus considerable developmental delay may be contributing to his progressive lack of self-care, self-neglect, functional decline. Once he is more stable, will need psychiatry consultation for additional assessment. Continue sertraline for now. Developmental delay Seizure disorder: Continue Keppra, transition to IV for now. Hypothyroidism: TSH noted mildly elevated 5.36, but free T4 is WNL. Continue levothyroxine. Consider reassessment of thyroid function in a few weeks or sooner in case of symptoms. Asthma: Currently not in exacerbation. Given social discord, concerns for functional decline with concerns for neglect placement to SNF and guardianship is being sought. Full code N.p.o. once patient is more awake and alert. On liquid diet. TPN. Protonix for PUD prophylaxis. SCDs for DVT prophylaxis. Attestations Medical Necessity Statement*: Requires further hospitalization for management of breakthrough seizures, intractable seizures, pancolitis with aspiration pneumonia in a patient with baseline seizure disorder, developmental mental delay while safe discharge planning and guardianship is sought Diagnoses Breakthrough seizure G40.919 Altered mental status R41.82 Major depressive disorder, recurrent, moderate F33.1 Protein-energy malnutrition E46 Fever R50.9 Pancolitis K51.00 Pneumonia J18.9 Acute hypokalemia E87.6 Hypomagnesemia E83.42 Partial small bowel obstruction K56.600 Declining functional status R53.81 Coffee ground emesis K92.0 Shock R57.9 Volvulus of intestine K56.2 Abnormal urinalysis R82.90 Self neglect R46.89 Rash R21 Tinea cruris B35.6
[2023-04-12 16:57] LABS: Hepatitis A Antibody IgM Non-Reactive (Nonreactive); Hepatitis B Core AB, Total Non-Reactive (Nonreactive); Hepatitis B Surface AB 4.7 (11.5-1000); Hepatitis B Surface Antigen Non-Reactive (Nonreactive); Hepatitis C Virus Antibody Non-Reactive (Nonreactive)
--- NOTE | 2023-04-12 17:46 | XRR_ITS ---
PROCEDURE INFORMATION: Exam: XR Chest Exam date and time: 04/12/2023 6:11 PM Age: 22 years old Clinical indication: Device placement; Ng tube; Additional info: Ng placement TECHNIQUE: Imaging protocol: Radiologic exam of the chest. Views: 1 view. COMPARISON: CT chest wo con [id number] 04/11/2023 3:28 PM FINDINGS: Tubes, catheters and devices: NG tube tip over the left lower lobe consistent with placement within the tracheobronchial tree. Lungs: Mild left basilar atelectasis and/or pneumonia. Poor inspiratory effort with some crowding of pulmonary markings and possible accentuation of the apparent heart size. Pleural spaces: Unremarkable. No pleural effusion. No pneumothorax. Heart/Mediastinum: See Lungs finding. Bones/joints: Unremarkable. XR/XR chest 1V portable [id number] IMPRESSION: 1. NG tube tip over the left lower lobe consistent with placement within the tracheobronchial tree. 2. Mild left basilar atelectasis and/or pneumonia.
[2023-04-12] MEDS: LORazepam 2 mg/mL INJ 1 mL 1 MG IVP ×2 (18:06→20:13)
--- NOTE | 2023-04-12 18:23 | PC.NURSE ---
Multiple attempts at NG tube placement. Xray ordered awaiting radiology report. Placement unlikely in correct position
--- NOTE | 2023-04-12 19:03 | PC.NURSE ---
NG tube in left lung per vrad report. Removed tube.
[2023-04-12] MEDS: oxymetazoline 0.05% Nasal Spray 15 mL 2 SPRAY NOSTRIL-B (22:46)
--- NOTE | 2023-04-12 23:26 | XRR_ITS ---
PROCEDURE INFORMATION: Exam: XR Chest Exam date and time: 04/12/2023 11:33 PM Age: 22 years old Clinical indication: Device placement; Ng tube; Patient HX: Check S/P new ng placement TECHNIQUE: Imaging protocol: Radiologic exam of the chest. Views: 1 view. COMPARISON: CR (CHEST, ) 04/12/2023 6:11 PM FINDINGS: Tubes, catheters and devices: Enteric tube looped over the fundus with tip over the body directed inferiorly into the right. There is a right central line. Lungs: Unremarkable. No consolidation. Pleural spaces: Unremarkable. No pleural effusion. No pneumothorax. Heart/Mediastinum: Unremarkable. No cardiomegaly. Bones/joints: Unremarkable. XR/XR chest 1V portable [id number] IMPRESSION: Enteric tube looped over the fundus with tip over the body directed inferiorly into the right.
[2023-04-13] VITALS (22 sets, daily range): BP systolic 101–145; BP diastolic 72–119; PULSE 77–131; RESP 17–24; TEMP 36.4–38.1; O2SAT 85–100; BMI 26.9
[2023-04-13] MEDS: pantoprazole 40 mg SDV IVP ×3 (00:05→23:31)
[2023-04-13] MEDS: metoprolol tartrate 25 mg Tablet PO ×3 (00:07→21:02)
[2023-04-13] MEDS: vancomycin 100 mg/1 mL Oral Syringe 125 MG PO ×5 (00:33→23:31)
[2023-04-13] MEDS: lacosamide 100 MG in sodium chloride 0.9% 50 ML 120 MG IV ×3 (01:11→23:23)
[2023-04-13] MEDS: vancomycin 1,000 MG in sodium chloride 0.9% 250 ML 250 MG IV ×3 (04:07→19:31)
--- NOTE | 2023-04-13 04:36 | PC.NURSE ---
12Fr NG tube inserted with Xray confirmation. Patient tolerated well. Afrin utilized to reduce edema and visualized discharge. Patient has exhibited little response to staff. Will open eyes and did allow for oral care. Patient appears to have labored breathing but is holding sp02 of 94%+ on room air. Frequent turns provided throughout shift.
[2023-04-13 05:17] LABS: Magnesium 1.5 mg/dL (1.7-2.3); Phosphorus 2.9 mg/dL (2.5-4.5)
--- NOTE | 2023-04-13 05:24 | XRR_ITS ---
PROCEDURE INFORMATION: Exam: XR Chest Exam date and time: 04/13/2023 6:33 AM Age: 22 years old Clinical indication: Shortness of breath; Patient HX: Worsening labored breathing with hypoxia. ; Additional info: Assess for pneumonia TECHNIQUE: Imaging protocol: Radiologic exam of the chest. Views: 1 view. COMPARISON: CR (CHEST, ) 04/12/2023 11:33 PM FINDINGS: Tubes, catheters and devices: Right-sided central venous line noted with the distal tip at the cavoatrial junction. An enteric tube is noted with the distal tip below the level of the diaphragm in the region of the stomach. Lungs: Minimal ground-glass density in the left lung base may be related to pleural effusion versus mild atelectasis. The remainder of the lung parenchyma is clear. Pleural spaces: Small left-sided pleural effusion similar to prior exam. Heart/Mediastinum: The cardiomediastinal silhouette is within normal limits. Bones/joints: Unremarkable. XR/XR chest 1V portable [id number] IMPRESSION: 1. Small left-sided pleural effusion similar to prior exam. 2. Minimal ground-glass density in the left lung base may be related to pleural effusion versus mild atelectasis. The remainder of the lung parenchyma is clear.
[2023-04-13] MEDS: sodium chloride 0.9% 1,000 ML 75 ML IV (05:40)
[2023-04-13] MEDS: sertraline 100 mg Tablet 150 MG PO (05:42)
[2023-04-13] MEDS: levothyroxine 75 mcg Tablet PO (05:43)
[2023-04-13] MEDS: meropenem 1,000 MG in sodium chloride 0.9% (plus) 50 ML 100 MG IV ×3 (06:51→23:03)
--- NOTE | 2023-04-13 08:00 | MRR_ITS ---
PROCEDURE INFORMATION: Exam: MR Head Without Contrast Exam date and time: 04/13/2023 10:43 AM Age: 22 years old Clinical indication: Altered mental status/memory loss; Additional info: Persistent fever, seizure TECHNIQUE: Imaging protocol: Magnetic resonance imaging of the head without contrast. COMPARISON: CT head wo con* [id number] 04/11/2023 3:25 PM FINDINGS: Brain: No areas of restricted diffusion concerning for acute infarct. No signal loss on gradient imaging concerning for hemorrhage. No significant abnormal signal on axial FLAIR imaging. No significant edema. No mass effect. Cerebral ventricles: Unremarkable. Bones/joints: Unremarkable. Paranasal sinuses: Unremarkable. Mastoid air cells: Unremarkable. Orbital cavities: Unremarkable. Soft tissues: Unremarkable. MR/MR head wo con* [id number] IMPRESSION: No acute intracranial abnormality identified.
--- NOTE | 2023-04-13 08:00 | MRR_ITS ---
PROCEDURE INFORMATION: Exam: MRA Head Without Contrast; Arteriography Exam date and time: 04/13/2023 11:00 AM Age: 22 years old Clinical indication: Convulsions / seizures; Type not specified; Additional info: Possible vasculitis, seizure TECHNIQUE: Imaging protocol: Magnetic resonance angiography head without contrast. [id number] (TOF) technique was utilized for this exam. Exam focused on the arteries. COMPARISON: MR head wo con* [id number] 04/13/2023 10:43 AM FINDINGS: ANTERIOR CIRCULATION: Right internal carotid artery: Intracranial segment is patent with no significant stenosis. No aneurysm. Right middle cerebral artery: No occlusion or significant stenosis. No aneurysm. Right anterior cerebral artery: No occlusion or significant stenosis. No aneurysm. Left internal carotid artery: Intracranial segment is patent with no significant stenosis. No aneurysm. Left middle cerebral artery: No occlusion or significant stenosis. No aneurysm. Left anterior cerebral artery: No occlusion or significant stenosis. No aneurysm. POSTERIOR CIRCULATION: Right vertebral artery: No occlusion or significant stenosis. No aneurysm. Left vertebral artery: No occlusion or significant stenosis. No aneurysm. Basilar artery: No occlusion or significant stenosis. No aneurysm. Right posterior cerebral artery: No occlusion or significant stenosis. No aneurysm. Left posterior cerebral artery: No occlusion or significant stenosis. No aneurysm. origin of the left [employer]. MR/MR angio head wo con [id number] IMPRESSION: No stenosis or occlusion.
[2023-04-13] MEDS: multivitamin therapeutic Tablet 1 TAB PO (08:25)
[2023-04-13] MEDS: methylphenidate 10 mg Tablet PO (08:25)
[2023-04-13] MEDS: terbinafine 1% Cream 15 gm 1 APPLIC TOPICAL ×2 (08:26→17:36)
[2023-04-13 08:36] LABS: Basophils # 0.1 10^3/uL (0.0-0.1); Basophils % 0.5 %; Eosinophils # 0.1 10^3/uL (0.0-0.8); Eosinophils % 0.9 %; Hematocrit 29.5 % (37-53); Lymphocytes # 0.9 10^3/uL (0.8-4.8); Lymphocytes % 6.7 %; Mean Corpuscular HGB Conc 32.2 g/dL (30-55); Mean Corpuscular Hemoglobin 30.6 pg (27-33); Mean Corpuscular Volume 95.2 fl (82-101); Mean Platelet Volume 10.4 fL (7.4-10.4); Monocytes # 0.5 10^3/uL (0.2-0.9); Monocytes % 3.9 %; Neutrophils # 11.02 10^3/uL (1.8-7.7); Neutrophils % 87.2 %; Nucleated Red Blood Cells % 0.2 %; Platelet Count 286 10^3/cmm (157-399); Red Cell Distribution Width 17.7 % (12.1-15.1); White Blood Count 12.64 10^3/uL (3.29-11.43)
[2023-04-13] MEDS: acyclovir 1,000 MG in sodium chloride 0.9% 250 ML 270 MG IV ×2 (08:37→17:34)
[2023-04-13 09:00] LABS: Alanine Aminotransferase 20 U/L (0-41); Albumin Level 2.1 g/dL (3.5-5.2); Alkaline Phosphatase 103 U/L (40-130); Anion Gap 13.3 (5-19); Aspartate Amino Transferase 15 U/L (0-40); Blood Urea Nitrogen 5 mg/dL (6-20); Carbon Dioxide 21 mmol/L (22-29); Chloride 107 mmol/L (98-107); Globulin 2.5 g/dL (1.3-4.6); Glomerular Filtration Rate 204.3 mL/min (90-130); Glucose 89 mg/dL (65-115); Osmolality Calculated 283 mOsm/kg (285-295); Potassium 3.3 mmol/L (3.5-5.1); Sodium 138 mmol/L (136-145); Total Bilirubin 0.7 mg/dL (0.15-1.2); Total Protein 4.6 g/dL (6.6-8.7)
[2023-04-13 09:01] LABS: Vancomycin Trough 19.2 ug/mL (10-15)
--- NOTE | 2023-04-13 09:02 | P.PN_ITS ---
Subjective Subjective: Patient evaluated this morning at the bedside, patient noted to be in delicate clinical condition but is stable. Mental status fluctuates, but this still remains significantly altered. Per nursing report there has been 2 or 3 bowel movements in the last 24 hours, no evidence of blood in the stool. Vitals/I&O/Wt Last Vital Signs Temp 100.5 F H 04/13/23 07:00 Pulse 123 H 04/13/23 08:00 Resp 23 H 04/13/23 08:00 BP 139/119 04/13/23 08:00 Pulse Ox 96 04/13/23 08:00 O2 Del Method Room Air 04/12/23 20:00 O2 Flow Rate 2 04/07/23 00:45 04/12/23 04/13/23 04/13/23 23:59 06:59 14:59 Intake Total 829.167 / 829.167 Output Total Balance 829.167 / 829.167 Weight last 48 hrs Weight 152 lb Weight 152 lb Physical Exam Const: OTHER: Patient with decreased mental status, somnolent. Chest: OTHER: Continues to be tachypneic GI: OTHER: Abdomen continues to be soft, minimally distended, minimally tender. Urinary Catheter Management: Winslow: Cath Placed During This Visit: yes Reason for Continuing Indwelling Catheter: Accurate Measurement of Urinary Output in Critically Ill Patients Urinary Catheter Date of Insertion: 04/06/23 Urinary Catheter Time of Insertion: 20:36 Data 04/13/23 08:18 04/13/23 08:18 Micro: Microbiology 04/11/23 09:16 Blood Culture - Preliminary Blood NEGATIVE TO DATE 04/11/23 09:10 Blood Culture - Preliminary Blood NEGATIVE TO DATE A&P Assessment and plan (1) Pancolitis: (2) Intractable epilepsy: (3) Fever: (4) Declining functional status: Plan After an evaluation of the ablated clinical data and oratory work-up the following is my assessment. White count shows downtrend from 14-12, this is likely indicative that colitis may be infectious in nature and with a high likelihood of possible C. difficile colitis as patient shows improvement in the white count after initiation of oral vancomycin. From the surgical standpoint abdominal exam remains benign, there is no indication for surgical intervention. We should continue with maximal medical therapy as guided by the medical ICU team, continue to trend white count. Mental status should continue to be monitored and further work-up will be conducted by the medical ICU team and neurology. No additional surgical intervention indicated at this time I will c ontinue to follow. Attestations Medical Necessity Statement*: Patient will continue to require tensive care for ultimate status and pancolitis. Coding Level of Care Code 98901 Diagnoses Pancolitis K51.00 Intractable epilepsy G40.919 Fever R50.9 Declining functional status R53.81
--- NOTE | 2023-04-13 09:20 | PM.PN ---
Subjective Subjective: Hussein Man is a 22 year old male who is mentally challenged with developmental delay.? Patient has a history of intractable epilepsy treated with Depakote.? Patient admitted with recurrent seizures and urinary tract infection.? Patient was also observed to have thrombocytopenia of unclear etiology but possibility of Depakote causing the low platelet (thrombocytopenia) could not be excluded the therefore Depakote was discontinued and the patient was started on Keppra and Neurology/Epilepsy consult was obtained to assist in the patient's care.? During the patient's initial neurological assessment he was alert and in no apparent distress.? Patient displays signs of developmental delay and was a poor historian and unable to give any details with regards to his epilepsy.? The patient's mother nor any other family member was present at the patient's bedside.? The patient reports a history of chronic weakness worse in his legs.? He denies pain, headaches, swallowing difficulty, chest pain shortness of breath or abdominal pain or visual difficulty.? The patient was reported to have what was described as possible pseudoseizures on 03/18/2023 where he was speaking with the nurse and told the nurse to, Watch this , and proceeded to have a spell with the nurse that was caring for the patient but the nurse that took over the patient's care could not give any further details regarding the seizure-like episode. Since the patient was stable and there were plans for discharge planning, I signed off on the patient's case. ?I was contacted today on 04/11/2023 to reevaluate the patient secondary to patient experiencing a seizure.? His temperature was reported to be 102.? Patient was loaded with IV Keppra and continued on IV Keppra 500 mg p.o. twice daily. Repeat head CT ordered an was negative for any acute findings. On 04/11/2023 the patient was lying in bed.? He was arousable to verbal stimuli but did not speak or follow commands. He was contacted by the attending physician who informed me that the patient continue to experience a fever and decreased level of consciousness and therefore he was transferred to the intensive care unit bed #4. Patient is currently on IV antibiotics including acyclovir. The nurse caring for the patient this morning reported that the patient's Tmax was 101 yesterday and currently 100.5. Patient is receiving Tylenol for fever. Patient is still displaying decreased level consciousness. There is no obvious signs of any seizure activity. According to the patient nurse who is caring for the patient this morning, the patient has been scheduled for a head MRI as well as lumbar puncture under fluoroscopy by radiology. I contacted the commercial service technician this morning who will perform surface EEG study today to assess for any subclinical status epilepticus although the patient's clinical picture is suggestive of a metabolic encephalopathy. Also instructed the patient's nurse to discontinue IV Keppra in case this medication is causing sedation especially since the patient has reported breakthrough seizures. Patient will be continued on IV Vimpat 100 mg twice a day and will be started on fosphenytoin 500 mg IV load x1 dose followed by 100 mg IV twice a day with plans for trough Dilantin level and albumin level in a.m. on 04/14/2023. Past medical history: Intractable epilepsy Urinary tract infection Generalized weakness Developmental delay Current medications: Fosphenytoin 100 mg IV twice a day (starting 04/13/2023) Vimpat 100 mg IV twice a day Diazepam (Valtoco) 5 mg (0.1 mL) every 4 hours as needed for seizures Zyrtec 10 mg p.o. every morning Flonase nasal spray 1 inhalation 4 times a day as needed Tylenol elixir 1000 mg p.o. every 6 hours as needed for pain Albuterol multidose inhaler 90 mcg per accusation 1 puff every 4 hours as needed Synthroid 75 mcg p.o. daily Singulair 10 mg p.o. daily Zoloft 100 mg p.o. every morning Trazodone 100 mg p.o. nightly as needed for sleep Protonix 40 mg p.o. nightly Ritalin Drug allergies: Depakote which resulted in thrombocytopenia requiring blood transfusion Past medications: Depakote which resulted in thrombocytopenia, IV Keppra Habits: Unknown Family history: Unknown Social history: The patient reports that he lives with his mother, father and a brother Review of systems: Unable to obtain secondary to patient's medical condition Vitals/I&O/Wt Last Vital Signs Temp 100.5 F H 04/13/23 07:00 Pulse 123 H 04/13/23 08:00 Resp 23 H 04/13/23 08:00 BP 139/119 04/13/23 08:00 Pulse Ox 96 04/13/23 08:00 O2 Del Method Room Air 04/12/23 20:00 O2 Flow Rate 2 04/07/23 00:45 04/12/23 04/13/23 04/13/23 23:59 06:59 14:59 Intake Total 829.167 / 829.167 Output Total Balance 829.167 / 829.167 Weight last 48 hrs Weight 152 lb Weight 152 lb Physical Exam Narrative: Is currently lying inThe patient. In a supine position. He has a NG tube in his nose. Patient has central line and is on IV antibiotics. Tmax 101 current temperature 100.5 ?F. Patient is slightly arousable to tactile stimuli. Pupils 5 to 6 mm bilaterally but reactive to light. Patient nonverbal. Patient moves his extremities upper extremities spontaneously. He does not follow commands. Head atraumatic. Neck appears supple. Deep tendon reflexes revealed plantar responses bilaterally. There is no clonus. Sensory examination was intact to tactile stimuli. Throat clear. Lungs revealed no obvious wheezes. Heart revealed sinus tachycardia with heart rate of 121. O2 saturations 96% on room air. Urinary Catheter Management: [place]: Cath Placed During This Visit: yes Reason for Continuing Indwelling Catheter: Accurate Measurement of Urinary Output in Critically Ill Patients Urinary Catheter Date of Insertion: 04/06/23 Urinary Catheter Time of Insertion: 20:36 Data 04/13/23 08:18 04/13/23 08:18 Micro: Microbiology 04/11/23 09:16 Blood Culture - Preliminary Blood NEGATIVE TO DATE 04/11/23 09:10 Blood Culture - Preliminary Blood NEGATIVE TO DATE A&P Assessment and plan (1) Intractable epilepsy: Impression: 1.? Intractable epilepsy with reports of recurrent seizures on 04/11/2023 2. Acute encephalopathy 3.? Possible pseudoseizures (nonepileptic event) on 03/18/2023 4. Fever 5.? Developmental delay with intellectual disability 6.? Thrombocytopenia etiology unclear.? Must consider thrombocytopenia being related to Depakote since platelet count appears to be improving since discontinuing Depakote 7.? Anemia and thrombocytopenia status post blood transfusion on 03/17/2023 8. Chronic lower extremity weakness left greater than right of unclear etiology Plan: 1.? Surface EEG recording for 41 minutes today to assess for subclinical status epilepticus (I spoke with our commercial service technician who will perform EEG study today). We will consider continuing EEG monitoring if needed in ICU with video 2. Awaiting head MRI 3. Awaiting lumbar puncture under fluoroscopy by radiology to assess for infection 4. Discontinue IV Keppra in case this medication may be contributing to sedation and reports of continued recurrent seizures 5. Continue IV Vimpat 100 mg twice a day 6. Start fosphenytoin 500 mg IV load at 100 mg/min x 1 dose then 100 mg twice a day 7. Trial of Dilantin level and albumin level in a.m. on 04/14/2023 8. Recommend discontinuing trazodone in case his medication may be contributing to his sedation 9. Decrease Zoloft to 50 mg p.o. daily 10. We will continue to monitor neurological condition 11. Ativan 1 mg IV every 6 hours as needed seizures lasting greater than 1 minute or greater than 2 seizures within a 2-hour period (2) Encephalopathy acute: (3) Fever: Attestations Medical Necessity Statement*: The patient was evaluated by neurology on 04/13/2023 secondary to encephalopathy and recurrent seizures in a patient with history of intractable epilepsy. Coding Level of Care Code 57108 Diagnoses Intractable epilepsy G40.919 Encephalopathy acute G93.40 Fever R50.9
[2023-04-13] MEDS: LORazepam 2 mg/mL INJ 1 mL IVP (10:32)
[2023-04-13] MEDS: potassium chloride oral liq 20 mEq/15 mL UDC 40 MEQ PO (12:01)
[2023-04-13 12:18] LABS: ABG PCO2 32.3 mmHg (35-45); ABG PH Result 7.43 (7.35-7.45); Alveolar-Arterial Oxygen Gradi 13.6 mmHg (5-10); Arterial Blood Gas Hematocrit 28.4 % (42-52); Base Excess ABG -2.3 mmol/L (-2.0-2.0); Blood Gas Allen Test Pos; Blood Gas Operator Identificat MONRO; Blood Gas Sample Site Brachial, left; Blood Gas Sample Type Arterial; Carboxyhemoglobin 1.8 %THgb (0.4-20.1); HCO3 ABG 21.5 mmol/L (22-26); HGB O2 Sat 95.5 % (95-100); Ionized Calcium Level - ABG 1.2 mmol/L (1.1-1.4); Methemoglobin 0.4 % (0.4-1.5); Oxygen Device NC; Oxygen Saturation ABG 97.7; PO2 ABG 83.2 mmHg (80.0-100.0); Potassium Level - ABG 3.5 mmol/L (3.5-5.0); Total Hemoglobin 9.3 g/dL (14-18)
[2023-04-13] MEDS: lidocaine 1% 5 ML in potassium chloride premix 100 ML 26.25 ML IV ×2 (12:47→16:00)
[2023-04-13] MEDS: FUROsemide 10 mg/mL SDV 4mL 40 MG IVP (12:48)
[2023-04-13] MEDS: magnesium sulfate premix 2 GM/50 ML PIGGYBACK IV (12:50)
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
[2023-04-13] MEDS: AA-Dex 4.25%-5% w/Lytes 1,000 ML with multivitamin inj 10 ML 31 ML IV (16:14)
--- NOTE | 2023-04-13 16:58 | PM.PN ---
Subjective Subjective: Patient continues to remain encephalopathic without any improvement. Today morning on examination patient is opening eyes on and off to physical stimulus. Not following commands. Fever curve seems to be improving with.'s of afebrile since yesterday afternoon. Tmax today morning 100.5 Fahrenheit. Heart rate remains in the 110s. Blood work today shows slight improvement in leukocytosis down to 12.5, hemoglobin of 9.5, ABG done because of concerns for hypoventilation with pH of 7.4, PCO2 32, PO2 of 83 on 3 L of oxygen supplementation, CMP showing persistent hypokalemia 3.3, creatinine 0.5, sodium 138, hypomagnesemia down to 1.5, Vanco trough of 19.2 Vitals/I&O/Wt Last Vital Signs Temp 100.5 F H 04/13/23 07:00 Pulse 111 H 04/13/23 16:00 Resp 17 04/13/23 16:00 BP 115/80 04/13/23 16:00 Pulse Ox 98 04/13/23 16:00 O2 Del Method Nasal Cannula 04/13/23 08:00 O2 Flow Rate 2 04/13/23 08:00 04/13/23 04/13/23 04/13/23 06:59 14:59 22:59 Intake Total 2193.667 / 2193.667 431.521 / 2625.188 Output Total 3250 / 3250 Balance 2193.667 / 2193.667 -2818.479 / -624.812 Weight last 48 hrs Weight 68.946 kg Weight 68.946 kg Physical Exam Const: COMMON NORMALS: patient oriented x3; apparent distress, negative for average body habitus, negative for healthy appearing, negative for alert and negative for well nourished EXAM LIMITATIONS: altered mental status and behavioral limitations GENERAL APPEARANCE: cooperative and disheveled; not well kempt NUTRITIONAL APPEARANCE: thin and underweight ORIENTATION/CONSCIOUSNESS: Yes awake, Yes oriented to person and Yes oriented to place; not oriented to time OTHER: GCS: E3 M4 V2, maintaining airway HENMT: COMMON NORMALS: oropharynx normal Eye: COMMON NORMALS: Equal, round and reactive pupils present, negative for conjunctivae normal and no scleral icterus CONJUNCTIVA: No conjunctivae normal PUPIL: Yes Equal, round and reactive pupils present Neck/C-Spine: COMMON NORMALS: no JVD Resp: COMMON NORMALS: normal respiratory effort and clear to auscultation bilaterally AUSCULTATION: clear to auscultation bilaterally Cardio: COMMON NORMALS: no JVD, regular rhythm, S1 normal heart sound present, S2 normal heart sound present and No murmurs present (Cardio) RHYTHM: regular rhythm HEART SOUNDS: S1 normal heart sound present and S2 normal heart sound present GI: COMMON NORMALS: Normal to inspection, nondistended, normoactive bowel sounds present, Soft to palpation and non-tender PALPATION: Yes Soft to palpation Extremity: COMMON NORMALS: no joint enlargement and no pedal edema Neuro: COMMON NORMALS: patient oriented x3 and moves all extremities SENSORIUM/ORIENTATION: No alert, Yes oriented to person, Yes oriented to place and No oriented to time Psych: APPEARANCE: No well kempt Skin: COMMON NORMALS: no rashes or lesions noted GENERAL SKIN EXAM: no rashes or lesions noted OTHER: Purpura like rash over buttocks and lower back, purpura like lines over sock elastic bands over ankles. Redness, skin breakdown and moisture damage of groin, scrotum. Urinary Catheter Management: [place]: Cath Placed During This Visit: yes Reason for Continuing Indwelling Catheter: Accurate Measurement of Urinary Output in Critically Ill Patients Urinary Catheter Date of Insertion: 04/06/23 Urinary Catheter Time of Insertion: 20:36 Data 04/13/23 08:18 04/13/23 08:18 A&P Assessment and plan (1) Breakthrough seizure: Not sure if it is a breakthrough seizure versus febrile seizure or if fever was because of the seizure. Keppra levels are reported normal. Appreciate neurology recommendations. CT head negative for acute abnormality. Patient's mentation continues to remain poor, not sure if patient is having subclinical seizures. Discussed in detail with neurology. Plan for EEG. Continue with Vimpat 100 mg twice daily. Keppra itself can cause encephalopathy so we will discuss about switching Keppra to a different kind of antiepileptic. Cannot rule out status epilepticus currently given significant encephalopathy. Seizure precaution. (2) Encephalopathy acute: Cannot rule out status epilepticus currently given significant encephalopathy. Above. Plan to switch from Keppra to a different antiepileptic. Also discussed with neurology that given persistent fever, leukocytosis with these breakthrough seizures cannot rule out meningitis the patient has been covered with vancomycin and Zosyn since admission. Neurology wants to get lumbar puncture with radiology when available. Currently low yield as patient is consistently on antibiotics. Given concerns for persistent encephalopathy with possibility of delay in lumbar puncture for now we will start patient on IV acyclovir 1 g 3 times daily. Respiratory viral panel so far has been negative. We will stop trazodone, decrease dose of Zoloft back to 100 mg daily. Trying not to go further down in the dose as patient has a history of severe depression causing severe decline in status as outpatient dose is around 200 mg. (3) Altered mental status: As above. Along with concerns for major depressive disorder. Given significant encephalopathy with breakthrough seizures, and colitis in a young patient cannot rule out vasculitis. CRP elevated, ESR borderline normal. ELYSSA panel pending. For now we will plan with MRI head and MRA head and neck for further evaluation. Appreciate neurology recommendations. (4) Major depressive disorder, recurrent, moderate: Appreciate psychiatric recommendations. Target dose actions per psychiatry and [facility] [place] of 200 mg of Zoloft. Currently weaned down to 100 mg given concerns for severe encephalopathy. (5) Protein-energy malnutrition: Patient continues to have poor oral intake. Appreciate dietitian recommendations. Patient's oral intake continues to remain poor. Was started on Ritalin during the hospitalization which has so far stopped given concerns for encephalopathy. Patient having refeeding syndrome. Continue with TPN. Plan to reach goal of 40 cc/h. (6) Fever: With persistent leukocytosis. Appreciate CT chest abdomen pelvis results. Follow-up blood culture, stool studies. Concerns for significant colitis on CT abdomen pelvis. Cannot rule out meningitis as above. Continue with vancomycin, broaden coverage with IV meropenem. Started on acyclovir on 04/13. IV Tylenol 1 g every 8 hours as needed. Start on trial of Motrin 200 mg every 6 hourly for next 2 days. (7) Pancolitis: Seen on CT abdomen pelvis done on 04/11. Most likely infectious in nature as did not have colitis on scan on admission. Lactate normal. Await stool studies. Stool studies will take few days to come back for now we will start patient on oral vancomycin 125 mg every 6 hourly. Uptitrate TPN to reach goal. Currently patient is having poor oral intake. IV Protonix 40 mg twice daily. Appreciate surgical recommendations. (8) Pneumonia: High concerns for aspiration pneumonia. Currently patient n.p.o. NG tube placed for medications. Will do speech evaluation once patient is more awake. (9) Acute hypokalemia: Replete 80 mg IV again. Monitor daily. (10) Hypomagnesemia: Replete 1 g again. (11) Partial small bowel obstruction: With possible volvulus. Appreciate surgical recommendations. Most likely intermittent in setting of dehydration. Patient tolerating liquid diet so far. Will uptitrate as per speech evaluation. IV hydration as above. Next continue Zofran as needed, Protonix twice daily for now Monitor electrolytes daily. (12) Declining functional status: Significant progressive functional decline recently with self-neglect, not getting out of bed, not eating. Seems to gotten worse not better despite improvement in condition during last hospitalization. Unclear how much of this may be secondary to worsening of depression. Appreciate psychiatric evaluation and assessment. Patient deemed not a good candidate to make medical decisions or take care of himself. Will consult case management for possible guardianship. (13) Coffee ground emesis: Possible coffee-ground contents/emesis fluid noted on the bed at home by EMS. Suspect secondary to transient hypoperfusion of the gut with shock, on imaging mild/partial SBO, possibility of intermittent volvulus. Hemoglobin has remained stable. Patient has not had any further episodes of emesis. Will restart heparin 5000 every 8 hourly today for DVT prophylaxis. (14) Shock: Resolved. Most likely hypovolemic on admission. Continues to have leukocytosis though trending down. Keep mean artery pressure 65. Hold off on Levophed for now. Continue with IV hydration with NS at 75 cc/h. Once TPN is at target we will decrease the dose of IV fluids. Monitor hemoglobin. Target hemoglobin will be in more than 7. Hb back to baseline. (15) Volvulus of intestine: Appreciate surgical recommendation (16) Self neglect: Does not appear to have good insight into his condition at least at this time. (17) Rash: Noted dependent purpuric rash on his buttocks, lower back. As well as around the ankles at the level of sock elastic bands. No blistering. No oral lesions. For now Blane Smith is not suspected, but monitor for any changes in condition. Reposition frequently. Plan MDD: At the moment unclear how much worsening of depression versus considerable developmental delay may be contributing to his progressive lack of self-care, self-neglect, functional decline. Once he is more stable, will need psychiatry consultation for additional assessment. Continue sertraline for now. Developmental delay with non verbal autism Hypothyroidism: TSH noted mildly elevated 5.36, but free T4 is WNL. Continue levothyroxine. Consider reassessment of thyroid function in a few weeks or sooner in case of symptoms. Asthma: Currently not in exacerbation. Given social discord, concerns for functional decline with concerns for neglect placement to SNF and guardianship is being sought. Plan for the day: Appreciate neurology recommendations. Switching from Keppra to possible Dilantin. Continue with Vimpat. Because of persistent encephalopathy will stop trazodone. Decrease dose of Zoloft to 100 mg daily. Stat MRI head and MRI brain to rule out structural abnormality given possibility of status epilepticus. EEG. Possibility of a lumbar puncture at the earliest. Continue with broad-spectrum antibiotics and add acyclovir. Persistent pancolitis. Continue with broad-spectrum antibiotics as above along with oral vancomycin as we await C. difficile studies. Concerns for aspiration so NG tube in place. Currently n.p.o. for nutrition. Continue with TPN. Stop IV fluids. Concerns for mild fluid overload. IV Lasix 40 mg one-time. Strict input output charting. May need repeat dose later in the day. 80 mg of IV potassium along with 40 mg of oral potassium. Repeat BMP in evening. Full code N.p.o. once patient is more awake and alert. On liquid diet. TPN. Protonix for PUD prophylaxis. SCDs for DVT prophylaxis. Attestations Medical Necessity Statement*: Requires further hospitalization for management of severe encephalopathy, breakthrough seizures with concerns for status epilepticus, and colitis with refeeding syndrome and protein energy malnutrition while safe discharge planning and guardianship is sought Critical Care Time: The high probability of a clinically significant, sudden or life threatening deterioration of the patient's neurology, renal, social, ID system(s) required my full and direct attention, intervention and personal management. The critical care time is as shown. This time is in addition to time spent performing any reported procedures but includes the following: [x] Data and vital sign review and interpretation [x] Patient assessment, examination and intervention [x] Documentation [x] Medication orders and management Coding Level of Care Code Critical Care >/= 30 minutes Critical care time (in minutes): 70 The high probability of a clinically significant, sudden or life threatening deterioration, as referenced in this documentation, required my full and direct attention, intervention and personal management. The critical care time shown is in addition to time spent performing any reported separately billable procedures and includes the following: [x] Data and vital sign review and interpretation [x] Patient assessment, examination and intervention [x] Medication orders and management [x] Patient/Family updates as able [x] Care Coordination and Documentation. Diagnoses Breakthrough seizure G40.919 Encephalopathy acute G93.40 Altered mental status R41.82 Major depressive disorder, recurrent, moderate F33.1 Protein-energy malnutrition E46 Fever R50.9 Pancolitis K51.00 Pneumonia J18.9 Acute hypokalemia E87.6 Hypomagnesemia E83.42 Partial small bowel obstruction K56.600 Declining functional status R53.81 Coffee ground emesis K92.0 Shock R57.9 Volvulus of intestine K56.2 Self neglect R46.89 Rash R21
--- NOTE | 2023-04-13 17:19 | XRR_ITS ---
PROCEDURE INFORMATION: Exam: XR Chest Exam date and time: 04/13/2023 6:35 PM Age: 22 years old Clinical indication: Shortness of breath; Patient HX: O2 desat; Increased SOB TECHNIQUE: Imaging protocol: Radiologic exam of the chest. Views: 1 view. COMPARISON: CR (CHEST, ) 04/13/2023 6:33 AM FINDINGS: Tubes, catheters and devices: Central line in place with its tip entering the right atrium. NG tube tip distal stomach. Lungs: Left basilar infiltrate. This has not significantly changed. Pleural spaces: Unremarkable. No pleural effusion. No pneumothorax. Heart/Mediastinum: Unremarkable. No cardiomegaly. Bones/joints: Unremarkable. XR/XR chest 1V portable [id number] IMPRESSION: Left basilar infiltrate. This has not significantly changed.
--- NOTE | 2023-04-13 18:08 | CTR_ITS ---
PROCEDURE INFORMATION: Exam: CTA Chest With Contrast Exam date and time: 04/13/2023 10:29 PM Age: 22 years old Clinical indication: Shortness of breath; Patient HX: Worsening hypoxia. ; Additional info: Desat TECHNIQUE: Imaging protocol: Computed tomographic angiography of the chest with contrast. Exam focused on the arteries. 3D rendering (Not supervised by radiologist): MIP and/or 3D reconstructed images were created by the technologist. Radiation optimization: All CT scans at this facility use at least one of these dose optimization techniques: automated exposure control; mA and/or kV adjustment per patient size (includes targeted exams where dose is matched to clinical indication); or iterative reconstruction. Contrast material: OMNI 350; Contrast volume: 46 ml; Contrast route: INTRAVENOUS (IV); REPORTING DATA: Count of CT and Cardiac NM exams in prior 12 months: This patient has received 8 known CTs and 0 known cardiac nuclear medicine studies in the 12 months prior to the current study. COMPARISON: CT angio chest PE protcl [id number] 04/07/2023 5:12 AM RADIATION DOSE METRICS: Total DLP (mGy-cm): 342.63 FINDINGS: Tubes, catheters and devices: Right-sided Port-A-Cath. Enteric tube tip the stomach. Pulmonary arteries: Normal. No pulmonary emboli. Aorta: Unremarkable. No aortic aneurysm. No aortic dissection. Lungs: Patchy bilateral largely left lower lobe pneumonic infiltrates. Pleural spaces: Small left pleural effusion. Heart: Unremarkable. No cardiomegaly. No pericardial effusion. Lymph nodes: Scattered prominent mediastinal lymph nodes measuring up to 16 mm, nonspecific. Liver: Hepatic steatosis. Bones/joints: Unremarkable. No acute fracture. Soft tissues: Unremarkable. CT/CT angio chest PE protcl [id number] IMPRESSION: 1. Negative for pulmonary embolus. 2. Small left pleural effusion. 3. Patchy bilateral largely left lower lobe pneumonic infiltrates. 4. Right-sided Port-A-Cath. 5. Enteric tube tip the stomach. 6. Hepatic steatosis. 7. Scattered prominent mediastinal lymph nodes measuring up to 16 mm, nonspecific.
[2023-04-13 18:37] LABS: Anion Gap 14.7 (5-19); Blood Urea Nitrogen 5 mg/dL (6-20); Calcium 8.3 mg/dL (8.5-10.5); Carbon Dioxide 22 mmol/L (22-29); Chloride 104 mmol/L (98-107); Glomerular Filtration Rate 588.1 mL/min (90-130); Glucose 90 mg/dL (65-115); Osmolality Calculated 279 mOsm/kg (285-295); Potassium 4.7 mmol/L (3.5-5.1); Sodium 136 mmol/L (136-145)
[2023-04-13 20:36] LABS: Glucose Point of Care 101 mg/dL (70-110)
--- NOTE | 2023-04-13 21:00 | PC.NURSE ---
Seizure-like Activity At approximately 2015, patient's arms moved back and forth in rhythmic, seizure-like movements. Seizure-like activity lasted for about one minute; no change in vital signs noted. Dr. Martinez and Dr. Sánchez notified; no new orders received.
[2023-04-13] MEDS: iohexol 350 mg/mL 500 mL Btl (per mL) IV (21:25)
[2023-04-14] VITALS (28 sets, daily range): BP systolic 84–133; BP diastolic 50–92; PULSE 108–137; RESP 17–28; TEMP 36.3–37.3; O2SAT 90–98; BMI 26.2
[2023-04-14] MEDS: FUROsemide 10 mg/mL SDV 2mL 20 MG IVP (00:16)
[2023-04-14] MEDS: acyclovir 1,000 MG in sodium chloride 0.9% 250 ML 270 MG IV ×3 (00:17→18:22)
--- NOTE | 2023-04-14 00:20 | PC.NURSE ---
Lasix Upon initial assessment of patient at 1945, patient's lungs sounded slightly coarse with crackles. At 0000, patient's lungs sounded increasingly more coarse with coarse crackles. Dr. Leon contacted and order received for 20 mg lasix IVP once now. See MAR for details.
[2023-04-14] MEDS: vancomycin 1,000 MG in sodium chloride 0.9% 250 ML 250 MG IV ×3 (03:04→18:23)
[2023-04-14 05:05] LABS: Basophils # 0.1 10^3/uL (0.0-0.1); Basophils % 0.5 %; Eosinophils # 0.2 10^3/uL (0.0-0.8); Eosinophils % 1.7 %; Hematocrit 30.1 % (37-53); Lymphocytes # 0.8 10^3/uL (0.8-4.8); Lymphocytes % 6.6 %; Mean Corpuscular HGB Conc 32.2 g/dL (30-55); Mean Corpuscular Hemoglobin 29.9 pg (27-33); Mean Corpuscular Volume 92.9 fl (82-101); Mean Platelet Volume 10.2 fL (7.4-10.4); Monocytes # 0.5 10^3/uL (0.2-0.9); Monocytes % 4.2 %; Neutrophils # 11.02 10^3/uL (1.8-7.7); Neutrophils % 86.1 %; Nucleated Red Blood Cells # 0.1 /100WBC; Nucleated Red Blood Cells % 0.4 %; Platelet Count 307 10^3/cmm (157-399); Red Blood Count 3.24 10^6/uL (3.85-5.65); Red Cell Distribution Width 16.8 % (12.1-15.1); White Blood Count 12.79 10^3/uL (3.29-11.43)
[2023-04-14 05:28] LABS: Glucose Point of Care 100 mg/dL (70-110)
[2023-04-14 05:32] LABS: Magnesium 1.5 mg/dL (1.7-2.3); Phosphorus 3.1 mg/dL (2.5-4.5)
[2023-04-14 05:33] LABS: Phenytoin Dilantin 7.1 ug/mL (10-20)
[2023-04-14 05:40] LABS: Alanine Aminotransferase 18 U/L (0-41); Albumin Level 2.3 g/dL (3.5-5.2); Alkaline Phosphatase 124 U/L (40-130); Anion Gap 15.5 (5-19); Aspartate Amino Transferase 18 U/L (0-40); Blood Urea Nitrogen 5 mg/dL (6-20); Calcium 8.1 mg/dL (8.5-10.5); Carbon Dioxide 22 mmol/L (22-29); Chloride 99 mmol/L (98-107); Globulin 2.7 g/dL (1.3-4.6); Glomerular Filtration Rate 204.3 mL/min (90-130); Glucose 83 mg/dL (65-115); Osmolality Calculated 270 mOsm/kg (285-295); Potassium 4.5 mmol/L (3.5-5.1); Sodium 132 mmol/L (136-145); Total Bilirubin 0.6 mg/dL (0.15-1.2)
[2023-04-14 05:52] LABS: Slide Review Slide Review Perform
[2023-04-14] MEDS: sertraline 100 mg Tablet PO (06:30)
[2023-04-14] MEDS: meropenem 1,000 MG in sodium chloride 0.9% (plus) 50 ML 100 MG IV ×3 (06:30→23:28)
[2023-04-14] MEDS: vancomycin 100 mg/1 mL Oral Syringe 125 MG PO ×4 (06:30→23:29)
[2023-04-14] MEDS: levothyroxine 75 mcg Tablet PO (06:30)
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
[2023-04-14] MEDS: multivitamin therapeutic Tablet 1 TAB PO (10:09)
[2023-04-14] MEDS: metoprolol tartrate 25 mg Tablet PO ×3 (10:09→19:26)
[2023-04-14] MEDS: ferrous gluconate 324 mg Tablet PO (10:09)
[2023-04-14] MEDS: terbinafine 1% Cream 15 gm 1 APPLIC TOPICAL ×2 (10:25→18:23)
--- NOTE | 2023-04-14 11:40 | PC.NURSE ---
Felicia Siddharthareta, mother, called for an update. Update provided. She talked about his asthma at home and how she would tell him to use his inhaler, but he is 22 years old, what are you going to do, you know?
[2023-04-14] MEDS: pantoprazole 40 mg SDV IVP ×2 (12:36→23:29)
[2023-04-14] MEDS: lacosamide 100 MG in sodium chloride 0.9% 50 ML 120 MG IV ×2 (12:45→23:43)
--- NOTE | 2023-04-14 12:49 | PM.PN ---
Subjective Subjective: Patient awakens to verbal and physical stimulation. Most of his speech is incomprehensible. Does not follow most of my commands which limits further history. Medications: Reviewed: Yes Vitals/I&O/Wt Last Vital Signs Temp 98 F 04/14/23 04:00 Pulse 133 H 04/14/23 08:00 Resp 28 H 04/14/23 08:00 BP 127/85 04/14/23 07:00 Pulse Ox 98 04/14/23 08:00 O2 Del Method Nasal Cannula 04/14/23 08:00 O2 Flow Rate 5 04/14/23 08:00 04/13/23 04/14/23 04/14/23 22:59 06:59 14:59 Intake Total 701.521 / 2895.188 1207 / 4102.188 50 / 50 Output Total 4150 / 4150 3000 / 7150 Balance -3448.479 / -1254.812 -1793 / -3047.812 50 / 50 Weight last 48 hrs Weight 68.039 kg Weight 68.946 kg Physical Exam Const: OTHER: GEN: AWAKE. HEAD: EOMI. NECK: NO JVD. CARDIAC: NORMAL S1 AND S2. NO MURMUR. NO GALLOP. NO HEAVE. NO EDEMA. RESPIRATORY: BREATH SOUNDS ARE COURSE. DECREASED AT BILATERAL BASES. FAINT RHONCHI. NO WHEEZING. ON SUPPLEMENTAL SUPPORT GI: NOT DISTENDED. NOT TENDER. BOWEL SOUNDS ARE PRESENT. : URINARY CATHETER LAD: NO LAD EXTREMITIES: POOR MUSCULAR DEVELOPMENT FOR DEMOGRAPHIC NEURO: MOVES ALL 4 EXTREMITIES. NO MYOCLONUS. SPEECH NOTED ABOVE. Urinary Catheter Management: Winslow: Cath Placed During This Visit: yes Reason for Continuing Indwelling Catheter: Accurate Measurement of Urinary Output in Critically Ill Patients Urinary Catheter Date of Insertion: 04/06/23 Urinary Catheter Time of Insertion: 20:36 Data 04/14/23 04:43 04/14/23 04:43 A&P Assessment and plan (1) Encephalopathy acute: Likely multifactorial Neurology following Treat underlying sepsis Optimize comorbidities LP is pending Continue empiric Acyclovir for now Ddx includes vasculitis, ELYSSA profile is pending (2) Sepsis: Source: C diff colitis Treat underlying sepsis Continue IV meropenem Continue IV vancomycin (3) Pancolitis: C diff colitis Continue oral vancomycin C diff precautions (4) Hypomagnesemia: Replace as needed (5) Intractable epilepsy: Neuro following Defer AED management to neuro Seizure precautions (6) Protein-energy malnutrition: Currently TPN, rotate to enteral feeds Continue speech therapy (7) Difficulty swallowing: Continue NGT, high risk for self extubation as he improves Continue working with speech therapy Discontinue TPN Start enteral feedings (8) Coffee ground emesis: Continue IV PPI, high risk for stress ulcer Monitoring blood counts (9) Major depressive disorder, recurrent, moderate: Continue sertraline Plan DVT ppx: SCD Code: Full Code Attestations Medical Necessity Statement*: Patient requires ongoing hospitalization for nutritional support via TPN to enteral feeding via NGT, IV abx, serial labs, IV AED, and supportive care. Coding Level of Care Code Acute Code for g Fwd Diagnoses Encephalopathy acute G93.40 Sepsis A41.9 Pancolitis K51.00 Hypomagnesemia E83.42 Intractable epilepsy G40.919 Protein-energy malnutrition E46 Difficulty swallowing R13.10 Coffee ground emesis K92.0 Major depressive disorder, recurrent, moderate F33.1
--- NOTE | 2023-04-14 13:37 | P.PN_ITS ---
Subjective Subjective: In the last 24 hours daily of result has been obtained and patient is positive for C. difficile. He has been started on controlled precautions. Oral vancomycin has been continued. Clinical examination remains the same, patient has poor mental status, suspected status epilepticus and continues to be tachycardic and tachypneic. His temperature is starting to improve. White count has remained stable at 12. Vitals/I&O/Wt Last Vital Signs Temp 98 F 04/14/23 04:00 Pulse 133 H 04/14/23 08:00 Resp 28 H 04/14/23 08:00 BP 127/85 04/14/23 07:00 Pulse Ox 98 04/14/23 08:00 O2 Del Method Nasal Cannula 04/14/23 08:00 O2 Flow Rate 5 04/14/23 08:00 04/13/23 04/14/23 04/14/23 22:59 06:59 14:59 Intake Total 701.521 / 2895.188 1207 / 4102.188 50 / 50 Output Total 4150 / 4150 3000 / 7150 Balance -3448.479 / -1254.812 -1793 / -3047.812 50 / 50 Weight last 48 hrs Weight 150 lb Weight 152 lb Physical Exam GI: OTHER: Abdomen is soft, nondistended, no evidence of grimacing upon deep palpation Urinary Catheter Management: Winslow: Cath Placed During This Visit: yes Reason for Continuing Indwelling Catheter: Accurate Measurement of Urinary Output in Critically Ill Patients Urinary Catheter Date of Insertion: 04/06/23 Urinary Catheter Time of Insertion: 20:36 Data 04/14/23 04:43 04/14/23 04:43 A&P Assessment and plan (1) C. difficile colitis: Plan After a complete physical examination review of all new clinical data the following is my assessment. Patient has been confirmed to have C. difficile colitis, continues with same clinical picture, abdominal exam is benign, soft, nondistended, unable to evaluate for tenderness due to patient mental status but no evidence of grimacing upon deep palpation. Recommendation will be can for continued medical management of C. difficile colitis. ? Consider stopping all antibiotics except for vancomycin to facilitate treatment of C. difficile colitis. ? If lack of clinical improvement consider adding metronidazole or switching to Fidaxomicin as needed ?Consider vancomycin enemas to facilitate resolution of infection -No surgical intervention indicated at this time ? All other management per medical team and neurology. Attestations Medical Necessity Statement*: Patient will require continued hospitalization for C. difficile colitis and possible status of electrical Coding Level of Care Code Acute Code for [facility] Diagnoses C. difficile colitis A04.72
[2023-04-14] MEDS: magnesium sulfate premix 2 GM/50 ML PIGGYBACK IV (13:38)
--- NOTE | 2023-04-14 13:49 | PC.NUTR ---
Addendum entered by Den Carrillo 04/17/23 13:19: If out of Osmolite 1.2 or Jevity 1.2, substitute with Glucerna 1.2. starting at 20ml/hr increase 20ml/hr q8 until goal of 60 ml/hr is reached. Dr. Baird agreed ([facility]) to increase TFs Addendum entered by Den Carrillo 04/16/23 09:58: If out of Jevity 1.2, substitute with Osmolite 1.2 Original Note: Brief Medical Nutrition Therapy Note - Begin weaning TPN at by decreasing rate 50% x24 hours then dc - Initiate EN via NG following RD recs below - Jevity 1.2 @20 ml/hr x24 hours then advance 20 ml/hr q8 until goal of 60 ml/hr is reached. - Obtain CMP, Mag, and Phos daily 2/2 risk for refeeding syndrome
[2023-04-14] MEDS: metoprolol tartrate 25 mg Tablet 50 MG PO (14:28)
[2023-04-14 15:58] LABS: Anti-Double Strand DNA AB <1 IU/mL; Jo-1 Antibody <1.0 NEG AI (<1.0 NEG); SM/RNP Antibodies <1.0 NEG AI (<1.0 NEG); SS-B/LA IGG <1.0 NEG AI (<1.0 NEG); Scleroderma Ab(Scl-70) Ab <1.0 NEG AI (<1.0 NEG); Ss-A/Ro Igg <1.0 NEG AI (<1.0 NEG)
--- NOTE | 2023-04-14 18:00 | PC.NURSE ---
CVL: has slight kink in white part of line. Sterile dressing change compleed. STeri- strips placed over white part of cath to alleviate kink for better cath flow.
--- NOTE | 2023-04-14 19:07 | PC.NURSE ---
Shift summary: Pt remained resting in bed throughout the shift. Pt able to nod head yes/no and follow commands when he wants to. No seizure activity noted this shift. His heart rate has been 120's mst of the shift, he did have a moment where it was 89, whcih was after care was provided for his fecal incontinence. He has generalized edema,mariela. in his hands. He indicated he did not want to squeeze our hands/fingers when we asked. TPN stopped today. Jevity 1.2 started at 20ml/hr with 200ml every 4hr flushes, as ordered. He only had 1 loose BM today. He had 1350ml of urine output this shift. His bottom/ perineal is rashy/excoriated. Lamictal applied as ordered to his perineal area.
[2023-04-14 20:19] LABS: Glucose Point of Care 96 mg/dL (70-110)
[2023-04-15] VITALS (24 sets, daily range): BP systolic 91–151; BP diastolic 65–118; PULSE 110–134; RESP 16–35; TEMP 36.7–38.4; O2SAT 87–98; BMI 25.8
[2023-04-15] MEDS: acyclovir 1,000 MG in sodium chloride 0.9% 250 ML 270 MG IV (00:40)
[2023-04-15] MEDS: metoprolol tartrate 25 mg Tablet PO ×4 (00:49→20:15)
[2023-04-15] MEDS: acetaminophen 500 mg Tablet 1000 MG PO ×2 (00:52→13:58)
[2023-04-15 03:24] LABS: Basophils # 0.1 10^3/uL (0.0-0.1); Basophils % 0.4 %; Eosinophils # 0.2 10^3/uL (0.0-0.8); Lymphocytes # 0.8 10^3/uL (0.8-4.8); Lymphocytes % 4.6 %; Mean Corpuscular HGB Conc 32.1 g/dL (30-55); Mean Corpuscular Hemoglobin 30.9 pg (27-33); Mean Corpuscular Volume 96.3 fl (82-101); Mean Platelet Volume 10.8 fL (7.4-10.4); Monocytes # 0.7 10^3/uL (0.2-0.9); Monocytes % 4.3 %; Neutrophils # 15.04 10^3/uL (1.8-7.7); Neutrophils % 88.9 %; Nucleated Red Blood Cells % 0.1 %; Platelet Count 332 10^3/cmm (157-399); Red Blood Count 3.01 10^6/uL (3.85-5.65); Red Cell Distribution Width 16.3 % (12.1-15.1); White Blood Count 16.91 10^3/uL (3.29-11.43)
[2023-04-15] MEDS: vancomycin 1,000 MG in sodium chloride 0.9% 250 ML 250 MG IV (03:24)
[2023-04-15 03:31] LABS: Glucose Point of Care 100 mg/dL (70-110)
[2023-04-15 03:41] LABS: Alanine Aminotransferase 23 U/L (0-41); Albumin Level 2.1 g/dL (3.5-5.2); Alkaline Phosphatase 130 U/L (40-130); Anion Gap 12.7 (5-19); Aspartate Amino Transferase 25 U/L (0-40); Blood Urea Nitrogen 5 mg/dL (6-20); Calcium 8.3 mg/dL (8.5-10.5); Carbon Dioxide 26 mmol/L (22-29); Chloride 101 mmol/L (98-107); Globulin 2.9 g/dL (1.3-4.6); Glomerular Filtration Rate 588.1 mL/min (90-130); Glucose 105 mg/dL (65-115); Osmolality Calculated 280 mOsm/kg (285-295); Potassium 3.7 mmol/L (3.5-5.1); Sodium 136 mmol/L (136-145); Total Bilirubin 0.4 mg/dL (0.15-1.2)
[2023-04-15 03:56] LABS: Slide Review Slide Review Perform
[2023-04-15 04:11] LABS: Magnesium 1.4 mg/dL (1.7-2.3); Phosphorus 3.4 mg/dL (2.5-4.5)
[2023-04-15] MEDS: sertraline 100 mg Tablet PO (05:32)
[2023-04-15] MEDS: vancomycin 100 mg/1 mL Oral Syringe 125 MG PO ×3 (05:32→18:06)
[2023-04-15] MEDS: levothyroxine 75 mcg Tablet PO (05:32)
[2023-04-15] MEDS: meropenem 1,000 MG in sodium chloride 0.9% (plus) 50 ML 100 MG IV (06:40)
[2023-04-15] MEDS: magnesium sulfate premix 2 GM/50 ML PIGGYBACK IV (07:30)
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
[2023-04-15] MEDS: terbinafine 1% Cream 15 gm 1 APPLIC TOPICAL ×2 (09:38→18:03)
[2023-04-15] MEDS: multivitamin therapeutic Tablet 1 TAB PO (09:39)
[2023-04-15 10:21] LABS: Vancomycin Trough 19.6 ug/mL (10-15)
--- NOTE | 2023-04-15 11:02 | PM.PN ---
Subjective Subjective: Patient awake and alert. Follows basic commands. Denies pain. Medications: Reviewed: Yes Vitals/I&O/Wt Last Vital Signs Temp 100.4 F H 04/15/23 08:00 Pulse 116 H 04/15/23 10:00 Resp 23 H 04/15/23 10:00 BP 110/76 04/15/23 10:00 Pulse Ox 92 04/15/23 10:00 O2 Del Method Nasal Cannula 04/15/23 09:00 O2 Flow Rate 3 04/15/23 08:00 04/14/23 04/15/23 04/15/23 22:59 06:59 14:59 Intake Total 1589.15 / 2381.15 1404 / 3785.15 50 / 50 Output Total 1875 / 1875 1100 / 2975 Balance -285.85 / 506.15 304 / 810.15 50 / 50 Weight last 48 hrs Weight 66.224 kg Weight 67.132 kg Physical Exam Const: OTHER: GEN: AWAKE. ALERT. ILL APPEARING. HEAD: EOMI. NECK: NO JVD. CARDIAC: NORMAL S1 AND S2. NO MURMUR. NO GALLOP. NO HEAVE. RESPIRATORY: BREATH SOUNDS ARE COURSE. DECREASED AT BILATERAL BASES. FAINT RHONCHI. NO WHEEZING. ON SUPPLEMENTAL SUPPORT GI: NOT DISTENDED. NOT TENDER. BOWEL SOUNDS ARE PRESENT. : URINARY CATHETER LAD: NO LAD EXTREMITIES: POOR MUSCULAR DEVELOPMENT FOR DEMOGRAPHIC NEURO: MOVES ALL 4 EXTREMITIES WITH LOWER EXTREMITIES ~1/5 FOR STRENGTH. UNABLE TO MOVE UPPER EXTREMITIES AGAINST GRAVITY. NO MYOCLONUS. SPEECH NOTED ABOVE. Urinary Catheter Management: Winslow: Cath Placed During This Visit: yes Reason for Continuing Indwelling Catheter: Accurate Measurement of Urinary Output in Critically Ill Patients Urinary Catheter Date of Insertion: 04/06/23 Urinary Catheter Time of Insertion: 20:36 Data 04/15/23 03:16 04/15/23 03:16 A&P Assessment and plan (1) Encephalopathy acute: Likely multifactorial Neurology following Treat underlying sepsis Optimize comorbidities ELYSSA unremarkable Neuro exam is improving with treatment, he remains severely weak (2) Sepsis: Source: C diff colitis Treat underlying sepsis Discontinue meropenem and vancomycin Monitor fever curve closely, low threshold for reinitiation of abx Removing central line (3) Pancolitis: C diff colitis Continue oral vancomycin C diff precautions Monitor progress, may need to escalate treatment pending clinical course General surgery is following (4) Hypomagnesemia: Replace as needed (5) Intractable epilepsy: Neuro following Defer AED management to neuro Seizure precautions (6) Difficulty swallowing: Continue speech therapy Continue NGT w/ enteral feeds for now, progress towards goal Nutrition following, appreciate reccomendations Monitor for refeeding syndrome (7) Protein-energy malnutrition: TF as above (8) Coffee ground emesis: Continue IV PPI, high risk for stress ulcer Monitoring blood counts (9) Major depressive disorder, recurrent, moderate: Continue sertraline Plan DVT ppx: SCD Code: Full Code Attestations Medical Necessity Statement*: Patient requires ongoing hospitalization for nutritional support via NGT, serial labs, AED, and supportive care. Coding Level of Care Code Acute Code for [facility] Fwd Diagnoses Encephalopathy acute G93.40 Sepsis A41.9 Pancolitis K51.00 Hypomagnesemia E83.42 Intractable epilepsy G40.919 Difficulty swallowing R13.10 Protein-energy malnutrition E46 Coffee ground emesis K92.0 Major depressive disorder, recurrent, moderate F33.1
[2023-04-15] MEDS: pantoprazole 40 mg SDV IVP (11:18)
[2023-04-15] MEDS: lacosamide 100 MG in sodium chloride 0.9% 50 ML 120 MG IV (11:19)
--- NOTE | 2023-04-15 12:22 | PM.PN ---
Subjective Subjective: Clinical condition remains a stable but guarded. Patient remains minimally responsive, does not complain of abdominal pain. Per primary team recommendation when he is awake does not have any pain. 1 bowel movement this morning Still with mucus. White count noted to be uptrending. Vitals/I&O/Wt Last Vital Signs Temp 100.4 F H 04/15/23 08:00 Pulse 116 H 04/15/23 10:00 Resp 23 H 04/15/23 10:00 BP 110/76 04/15/23 10:00 Pulse Ox 92 04/15/23 10:00 O2 Del Method Nasal Cannula 04/15/23 09:00 O2 Flow Rate 3 04/15/23 08:00 04/14/23 04/15/23 04/15/23 22:59 06:59 14:59 Intake Total 1589.15 / 2381.15 1404 / 3785.15 102 / 102 Output Total 1875 / 1875 1100 / 2975 Balance -285.85 / 506.15 304 / 810.15 102 / 102 Weight last 48 hrs Weight 146 lb Weight 148 lb Physical Exam GI: OTHER: Abdominal exam is completely benign, abdomen is soft, nondistended, no evidence of tenderness Urinary Catheter Management: Winslow: Cath Placed During This Visit: yes Reason for Continuing Indwelling Catheter: Accurate Measurement of Urinary Output in Critically Ill Patients Urinary Catheter Date of Insertion: 04/06/23 Urinary Catheter Time of Insertion: 20:36 Data 04/15/23 03:16 04/15/23 03:16 A&P Assessment and plan (1) C. difficile colitis: Plan 22-year-old male with multiple medical comorbidities admitted with a status epilepticus, deconditioning, self-neglect. 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 difficile. Patient continues to be febrile and has noted to have an uptrend in the white count. His difficult to pinpoint these changes only to the colitis as patient also had an episode of aspiration and possible sepsis from this earlier in his hospital stay. Abdominal exam is completely benign and does not appear to have evidence of bowel compromise. The recommendation is to aggressively treat C. difficile colitis, consider escalation of antibiotics or switch to fidaxomicin, can also consider vancomycin enemas. If considered appropriate by primary team infectious disease consult should be obtained. No acute surgical intervention at the moment. General surgery will continue to follow. Attestations Medical Necessity Statement*: Patient will need ongoing hospital stay for C. difficile colitis and multiple medical comorbidities. Coding Level of Care Code Acute Code for [facility] Diagnoses C. difficile colitis A04.72
[2023-04-15 14:28] LABS: Glucose Point of Care 100 mg/dL (70-110)
--- NOTE | 2023-04-15 19:11 | PC.NURSE ---
Uneventful shift. Patient rested in bed throughout the day. 2 bowel movements. Mouth is very dry and lips have dried skin on them. NUrse has attempted to swab mouth and clean lips, but patient refuses, tightly closes lips and moves head side to side to prevent oral care. Patient unable to answer person, place, time, or situation questions as his voice is very mumbled and raspy, unable to understand responses, though patient appears to fully understand. Unable to communicate through writing dut to severe weakness and unable to do much movement with hands/arms.
[2023-04-16] VITALS (30 sets, daily range): BP systolic 99–127; BP diastolic 63–90; PULSE 97–141; RESP 15–30; TEMP 36.8–38; O2SAT 89–97
[2023-04-16] MEDS: metoprolol tartrate 25 mg Tablet PO (00:22)
[2023-04-16] MEDS: lacosamide 100 MG in sodium chloride 0.9% 50 ML 120 MG IV ×3 (00:22→22:39)
[2023-04-16] MEDS: vancomycin 100 mg/1 mL Oral Syringe 125 MG PO ×4 (00:22→17:57)
[2023-04-16] MEDS: pantoprazole 40 mg SDV IVP ×2 (00:22→12:24)
[2023-04-16 04:46] LABS: Basophils # 0.1 10^3/uL (0.0-0.1); Basophils % 0.3 %; Eosinophils # 0.1 10^3/uL (0.0-0.8); Eosinophils % 0.6 %; Hematocrit 28.9 % (37-53); Lymphocytes % 5.2 %; Mean Corpuscular HGB Conc 31.5 g/dL (30-55); Mean Corpuscular Hemoglobin 30.4 pg (27-33); Mean Corpuscular Volume 96.7 fl (82-101); Mean Platelet Volume 11.1 fL (7.4-10.4); Monocytes # 0.9 10^3/uL (0.2-0.9); Monocytes % 4.9 %; Nucleated Red Blood Cells % 0 %; Platelet Count 389 10^3/cmm (157-399); Red Blood Count 2.99 10^6/uL (3.85-5.65); Red Cell Distribution Width 16.6 % (12.1-15.1); White Blood Count 18.62 10^3/uL (3.29-11.43)
[2023-04-16 05:13] LABS: Alanine Aminotransferase 26 U/L (0-41); Albumin Level 2.2 g/dL (3.5-5.2); Alkaline Phosphatase 177 U/L (40-130); Anion Gap 12.9 (5-19); Aspartate Amino Transferase 27 U/L (0-40); Blood Urea Nitrogen 8 mg/dL (6-20); Calcium 8.5 mg/dL (8.5-10.5); Carbon Dioxide 26 mmol/L (22-29); Chloride 103 mmol/L (98-107); Glomerular Filtration Rate 264.3 mL/min (90-130); Glucose 103 mg/dL (65-115); Magnesium 1.9 mg/dL (1.7-2.3); Osmolality Calculated 285 mOsm/kg (285-295); Potassium 3.9 mmol/L (3.5-5.1); Sodium 138 mmol/L (136-145); Total Bilirubin 0.3 mg/dL (0.15-1.2); Total Protein 5.2 g/dL (6.6-8.7)
[2023-04-16] MEDS: sertraline 100 mg Tablet PO (05:22)
[2023-04-16] MEDS: levothyroxine 75 mcg Tablet PO (05:22)
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
[2023-04-16] MEDS: metoprolol tartrate 25 mg Tablet 50 MG PO ×3 (08:04→22:39)
[2023-04-16 08:10] LABS: Glucose Point of Care 130 mg/dL (70-110)
--- NOTE | 2023-04-16 08:17 | P.PN_ITS ---
Subjective Subjective: Evaluated the patient this morning at the bedside, he was alert and awake during my evaluation. He did not complain of any pain. Bedside nurse report patient had a more formed bowel movement overnight, but this still some mucus with the stool. No complaint at the moment from patient is that NG tube is still in place. Vitals/I&O/Wt Last Vital Signs Temp 98.7 F 04/16/23 00:00 Pulse 130 H 04/16/23 06:00 Resp 30 H 04/16/23 06:00 BP 127/75 04/16/23 06:00 Pulse Ox 91 04/16/23 06:00 O2 Del Method Nasal Cannula 04/15/23 20:00 O2 Flow Rate 3 04/15/23 20:00 04/15/23 04/16/23 04/16/23 22:59 06:59 14:59 Intake Total 939 / 1241 60 / 1301 Balance 939 / 741 60 / 801 Weight last 48 hrs Weight 145 lb 3.2 oz Weight 146 lb Physical Exam GI: OTHER: Abdominal exam is completely benign, soft, nondistended, nontender to deep palpation. Urinary Catheter Management: Winslow: Cath Placed During This Visit: yes Reason for Continuing Indwelling Catheter: Accurate Measurement of Urinary Output in Critically Ill Patients Urinary Catheter Date of Insertion: 04/06/23 Urinary Catheter Time of Insertion: 20:36 Data 04/16/23 03:50 04/16/23 03:50 A&P Assessment and plan (1) C. difficile colitis: Plan 22-year-old male who is known to my service for pancolitis due to C. difficile. Patient has also multiple medical comorbidities including epilepsy acute encephalopathy, self-neglect and malnutrition. She is also being managed for sepsis. From the general surgery standpoint there has been improvement in pa gasper clinical status and symptomatology of pancolitis. Despite this improvement it is also apparent that patient white count continues to increase and now is 18,000. Further work-up per primary team may be necessary to identify the source of infection or if need for further escalation of therapy is needed at the moment. Clinically as mentioned there is improvement in the abdominal exam and consistency of bowel movements. General surgery will continue to closely follow, no intervention planned at the moment. Attestations Medical Necessity Statement*: Patient requires continued hospital stay for multiple medical comorbidities and C. difficile pancolitis. Coding Level of Care Code 72989 Diagnoses C. difficile colitis A04.72
[2023-04-16] MEDS: multivitamin therapeutic Tablet 1 TAB PO (09:51)
[2023-04-16] MEDS: acetaminophen 500 mg Tablet 1000 MG PO (09:51)
[2023-04-16] MEDS: terbinafine 1% Cream 15 gm 1 APPLIC TOPICAL ×2 (09:52→17:57)
--- NOTE | 2023-04-16 12:34 | PM.PN ---
Subjective Subjective: Per report, bowel movements are slightly more formed. Patient awake and alert. Still following basic commands. Denies abdominal pain. Medications: Reviewed: Yes Vitals/I&O/Wt Last Vital Signs Temp 100.4 F H 04/16/23 08:20 Pulse 140 H 04/16/23 08:00 Resp 18 04/16/23 08:00 BP 127/75 04/16/23 06:00 Pulse Ox 94 04/16/23 08:00 O2 Del Method Nasal Cannula 04/16/23 08:00 O2 Flow Rate 4 04/16/23 08:00 04/15/23 04/16/23 04/16/23 22:59 06:59 14:59 Intake Total 939 / 1241 60 / 1301 939 / 939 Output Total 300 / 300 Balance 939 / 741 60 / 801 639 / 639 Weight last 48 hrs Weight 65.862 kg Weight 66.224 kg Physical Exam Const: OTHER: GEN: AWAKE. ALERT. ILL APPEARING. HEAD: EOMI. NGT. NECK: NO JVD. CARDIAC: NORMAL S1 AND S2. NO MURMUR. NO GALLOP. NO HEAVE. RESPIRATORY: BREATH SOUNDS ARE COURSE. FAINT RHONCHI. NO WHEEZING. ON SUPPLEMENTAL SUPPORT GI: NOT DISTENDED. NOT TENDER. BOWEL SOUNDS ARE PRESENT. : URINARY CATHETER LAD: NO LAD EXTREMITIES: POOR MUSCULAR DEVELOPMENT FOR DEMOGRAPHIC NEURO: MOVES ALL 4 EXTREMITIES WITH LOWER EXTREMITIES ~1/5 FOR STRENGTH. UNABLE TO MOVE UPPER EXTREMITIES AGAINST GRAVITY. NO MYOCLONUS. SPEECH NOTED ABOVE. Urinary Catheter Management: Winslow: Cath Placed During This Visit: yes Reason for Continuing Indwelling Catheter: Accurate Measurement of Urinary Output in Critically Ill Patients Urinary Catheter Date of Insertion: 04/06/23 Urinary Catheter Time of Insertion: 20:36 Data 04/16/23 03:50 04/16/23 03:50 Micro: Microbiology 04/11/23 09:16 Blood Culture - Final Blood NO GROWTH AFTER 5 DAYS 04/11/23 09:10 Blood Culture - Final Blood NO GROWTH AFTER 5 DAYS A&P Assessment and plan (1) Encephalopathy acute: Likely multifactorial, query critical illness polyneuropathy/myopathy Neurology following Treat underlying sepsis Optimize comorbidities (2) Sepsis: Source: C diff colitis Treat underlying sepsis (3) Pancolitis: C diff colitis Continue oral vancomycin C diff precautions Monitor progress, may need to escalate treatment pending clinical course (4) Hypomagnesemia: Replace as needed (5) Intractable epilepsy: Neuro following Defer AED management to neuro Seizure precautions (6) Difficulty swallowing: Continue speech therapy Continue NGT w/ enteral feeds, progress towards goal Nutrition following, appreciate recommendations Monitor for refeeding syndrome (7) Protein-energy malnutrition: TF as above (8) Coffee ground emesis: Continue PPI, high risk for stress ulcer Monitoring blood counts (9) Major depressive disorder, recurrent, moderate: Continue sertraline Plan DVT ppx: SCD Code: Full Code Attestations Medical Necessity Statement*: Patient requires ongoing hospitalization for nutritional support via NGT, serial labs, AED, and supportive care. Coding Level of Care Code Acute Code for g Fwd Diagnoses Encephalopathy acute G93.40 Sepsis A41.9 Pancolitis K51.00 Hypomagnesemia E83.42 Intractable epilepsy G40.919 Difficulty swallowing R13.10 Protein-energy malnutrition E46 Coffee ground emesis K92.0 Major depressive disorder, recurrent, moderate F33.1
[2023-04-16 19:51] LABS: Glucose Point of Care 111 mg/dL (70-110)
--- NOTE | 2023-04-16 20:10 | PC.NURSE ---
SHift Summary: Uneventful shift. Patient was up to a chair for about 8 hours today. Used draw sheet and total support from nursing staff to transfer to chair, no assistance provided form patient. Still severe weakness in all 4 limbs, but patient is now able to lift arms. Speech is a little improved compared to yesterday, able to make out about half the words in a sentence. 2 bowel movements today which continue to be mucoid and loose but with some solid pieces.
[2023-04-17] VITALS (50 sets, daily range): BP systolic 84–129; BP diastolic 58–103; PULSE 99–138; RESP 14–32; TEMP 36.7–37.8; O2SAT 87–99; BMI 25.5
[2023-04-17] MEDS: pantoprazole 40 mg SDV IVP ×3 (00:05→23:20)
[2023-04-17] MEDS: vancomycin 100 mg/1 mL Oral Syringe 125 MG PO ×2 (00:05→06:02)
[2023-04-17 04:54] LABS: Basophils % 0.3 %; Eosinophils # 0.2 10^3/uL (0.0-0.8); Eosinophils % 1.4 %; Hematocrit 29.7 % (37-53); Lymphocytes % 8.8 %; Mean Corpuscular HGB Conc 31.3 g/dL (30-55); Mean Corpuscular Hemoglobin 30.1 pg (27-33); Mean Corpuscular Volume 96.1 fl (82-101); Mean Platelet Volume 10.6 fL (7.4-10.4); Monocytes # 0.8 10^3/uL (0.2-0.9); Neutrophils # 9.66 10^3/uL (1.8-7.7); Neutrophils % 81.9 %; Nucleated Red Blood Cells % 0 %; Platelet Count 440 10^3/cmm (157-399); Red Blood Count 3.09 10^6/uL (3.85-5.65); Red Cell Distribution Width 16.4 % (12.1-15.1); White Blood Count 11.77 10^3/uL (3.29-11.43)
[2023-04-17 05:13] LABS: Alanine Aminotransferase 46 U/L (0-41); Albumin Level 2.4 g/dL (3.5-5.2); Alkaline Phosphatase 165 U/L (40-130); Anion Gap 11.3 (5-19); Aspartate Amino Transferase 54 U/L (0-40); Blood Urea Nitrogen 11 mg/dL (6-20); Calcium 8.8 mg/dL (8.5-10.5); Carbon Dioxide 28 mmol/L (22-29); Chloride 100 mmol/L (98-107); Globulin 2.9 g/dL (1.3-4.6); Glomerular Filtration Rate 368.3 mL/min (90-130); Glucose 115 mg/dL (65-115); Magnesium 1.7 mg/dL (1.7-2.3); Osmolality Calculated 280 mOsm/kg (285-295); Potassium 4.3 mmol/L (3.5-5.1); Sodium 135 mmol/L (136-145); Total Bilirubin 0.2 mg/dL (0.15-1.2); Total Protein 5.3 g/dL (6.6-8.7)
[2023-04-17] MEDS: ondansetron 2 mg/ML SDV 2 mL 4 MG IVP ×2 (05:14→20:05)
[2023-04-17 05:23] LABS: Glucose Point of Care 107 mg/dL (70-110)
[2023-04-17] MEDS: metoprolol tartrate 25 mg Tablet 50 MG PO ×3 (06:00→23:21)
[2023-04-17] MEDS: levothyroxine 75 mcg Tablet PO (06:01)
[2023-04-17] MEDS: sertraline 100 mg Tablet PO (06:01)
--- NOTE | 2023-04-17 07:22 | PC.NURSE ---
Nausea Patient complaining of nausea and dry heaving, zofran administered per AUG. Dr. Medeiros notified and order received to pause tube feed for 2 hours. Tube feed paused at 0545. Receiving nurse aware of pause.
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
[2023-04-17] MEDS: multivitamin therapeutic Tablet 1 TAB PO (08:58)
[2023-04-17] MEDS: terbinafine 1% Cream 15 gm 1 APPLIC TOPICAL ×2 (08:59→17:48)
--- NOTE | 2023-04-17 10:24 | PM.PN ---
Subjective Subjective: Per overnight signout, patient found to be nauseous this morning. Tube feeds were held with minimal residual. Patient is feeling better upon evaluation. He is slightly stronger in his upper extremities but overall they remain exceptionally weak. He denies any fevers, chills, or pains. Bowel movements reportedly still loose. Tmax 100.4. Medications: Reviewed: Yes Vitals/I&O/Wt Last Vital Signs Temp 98.1 F 04/17/23 04:00 Pulse 116 H 04/17/23 09:59 Resp 18 04/17/23 09:59 BP 114/76 04/17/23 08:30 Pulse Ox 92 04/17/23 09:59 O2 Del Method Room Air 04/17/23 09:59 O2 Flow Rate 4 04/16/23 08:00 04/16/23 04/17/23 04/17/23 22:59 06:59 14:59 Intake Total 52 / 1935 347 / 2282 0 / 0 Output Total 500 / 800 1000 / 1000 Balance -448 / 1135 347 / 1482 -1000 / -1000 Weight last 48 hrs Weight 65.408 kg Weight 65.862 kg Physical Exam Const: OTHER: GEN: AWAKE. ALERT. STILL ILL APPEARING. LAYING IN BED. HEAD: EOMI. NGT. NECK: NO JVD. CARDIAC: NORMAL S1 AND S2. NO MURMUR. NO GALLOP. NO HEAVE. RESPIRATORY: BREATH SOUNDS ARE COURSE. NO WHEEZING. GI: NOT DISTENDED. NOT TENDER. BOWEL SOUNDS ARE PRESENT. : URINARY CATHETER LAD: NO LAD EXTREMITIES: POOR MUSCULAR DEVELOPMENT FOR DEMOGRAPHIC NEURO: MOVES ALL 4 EXTREMITIES WITH LOWER EXTREMITIES ~1/5 FOR STRENGTH, UNCHANGED FROM PRIOR. UPPER EXTREMITIES SHOWING SOME MOVEMENT AGAINST GRAVITY ALBIET VERY ATAXIC. NO MYOCLONUS. ANSWERS YES AND NO QUESTIONS MOSTLY APPROPRIATELY. VOICE STILL VERY SOFT. Urinary Catheter Management: Winslow: Cath Placed During This Visit: yes Reason for Continuing Indwelling Catheter: Accurate Measurement of Urinary Output in Critically Ill Patients Urinary Catheter Date of Insertion: 04/06/23 Urinary Catheter Time of Insertion: 20:36 Data 04/17/23 04:45 04/17/23 04:45 Micro: Microbiology 04/11/23 09:16 Blood Culture - Final Blood NO GROWTH AFTER 5 DAYS 04/11/23 09:10 Blood Culture - Final Blood NO GROWTH AFTER 5 DAYS A&P Assessment and plan (1) Encephalopathy acute: Likely multifactorial, query critical illness polyneuropathy/myopathy Neurology following Optimize comorbidities (2) Sepsis: Source: C diff colitis Treat underlying sepsis (3) Pancolitis: C diff colitis Continue oral vancomycin C diff precautions (4) Hypomagnesemia: Replace as needed (5) Intractable epilepsy: Neuro following Defer AED management to neuro Seizure precautions (6) Difficulty swallowing: Continue speech therapy Continue NGT w/ enteral feeds Nutrition following, appreciate recommendations Monitor for refeeding syndrome (7) Protein-energy malnutrition: TF as above (8) Coffee ground emesis: Continue PPI, high risk for stress ulcer Monitoring blood counts (9) Major depressive disorder, recurrent, moderate: Continue sertraline, dose adjusted by neurology Plan DVT ppx: SCD Code: Full Code Attestations Medical Necessity Statement*: Patient requires ongoing hospitalization for nutritional support via NGT, serial labs, AED, and supportive care. Coding Level of Care Code Acute Code for Chg Fwd Diagnoses Encephalopathy acute G93.40 Sepsis A41.9 Pancolitis K51.00 Hypomagnesemia E83.42 Intractable epilepsy G40.919 Difficulty swallowing R13.10 Protein-energy malnutrition E46 Coffee ground emesis K92.0 Major depressive disorder, recurrent, moderate F33.1
[2023-04-17] MEDS: vancomycin 125 mg Capsule PO ×3 (12:40→20:56)
[2023-04-17] MEDS: lacosamide 100 MG in sodium chloride 0.9% 50 ML 120 MG IV ×2 (12:51→23:20)
--- NOTE | 2023-04-17 13:03 | PM.PN ---
Subjective Subjective: 22-year-old male with C. difficile colitis, in the last 24 hours there has been significant improvement of the patient clinical condition. He is more awake, complains of only minimal abdominal pain upon deep palpation. Has continued to have loose stools with a small amount of mucus. Tmax has been 100.4. White count has trended down to 11. Vitals/I&O/Wt Last Vital Signs Temp 98.1 F 04/17/23 04:00 Pulse 125 H 04/17/23 10:30 Resp 23 H 04/17/23 10:30 BP 109/85 04/17/23 10:30 Pulse Ox 96 04/17/23 10:30 O2 Del Method Room Air 04/17/23 10:30 O2 Flow Rate 4 04/16/23 08:00 04/16/23 04/17/23 04/17/23 22:59 06:59 14:59 Intake Total 52 / 1935 347 / 2282 52 / 52 Output Total 500 / 800 1000 / 1000 Balance -448 / 1135 347 / 1482 -948 / -948 Weight last 48 hrs Weight 144 lb 3.2 oz Weight 145 lb 3.2 oz Physical Exam GI: OTHER: [place] minimal ecchymosis in the anterior abdominal wall, no abdomen is soft, minimally tender to palpation, no peritoneal signs, no distention Urinary Catheter Management: Winslow: Cath Placed During This Visit: yes Reason for Continuing Indwelling Catheter: Accurate Measurement of Urinary Output in Critically Ill Patients Urinary Catheter Date of Insertion: 04/06/23 Urinary Catheter Time of Insertion: 20:36 Data 04/17/23 04:45 04/17/23 04:45 Micro: Microbiology 04/11/23 09:16 Blood Culture - Final Blood NO GROWTH AFTER 5 DAYS 04/11/23 09:10 Blood Culture - Final Blood NO GROWTH AFTER 5 DAYS A&P Assessment and plan (1) C. difficile colitis: Plan Appears to be improving from the general surgery standpoint, has continued to receive oral vancomycin, but still has some diarrhea. May consider escalation of coverage for C. difficile colitis as guided per primary team. No surgical intervention is indicated at this time. Recommend to continue maximal medical management. Attestations Medical Necessity Statement*: Patient will continue to require hospital stay for management of C. difficile colitis on additional medical comorbidities Coding Level of Care Code Acute Code for Chg Fwd Diagnoses C. difficile colitis A04.72
--- NOTE | 2023-04-17 20:34 | PC.NURSE ---
Hospitalist notified of patient's nausea/emesis. Tube feedings paused and stomach was decompressed along with zofran administered. Hospitalist gave order to hold feeding/flushes overnight. Nausea was relieved almost instantly with decompression through NG tube. Residual amount of about 50 mls noted however NG confirmation shows end of tube laying in the fundus.
[2023-04-18] VITALS (45 sets, daily range): BP systolic 99–135; BP diastolic 64–117; PULSE 106–139; RESP 15–29; TEMP 36.7–37.7; O2SAT 91–99
--- NOTE | 2023-04-18 01:16 | PC.NURSE ---
Patient was bathed and wounds assessed. Left heel blister was covered with optifoam due to leaking. lotion applied to dry skin along with ointments. Patient tolerated well. Patient did become irritated around 0100 telling this nurse I want to go home . He also shook his head indicated he did not want to be treated. This nurse instructed him as to the importance of his antibiotic therapy to treat his bacterial infection. Patient's agitation level has somewhat increased.
--- NOTE | 2023-04-18 03:14 | PC.NURSE ---
Patient had been increasingly agitated through the animal behaviorist. This nurse checked on the patient after med administration in another patient's room to find the patient had pulled his NG tube and it was sitting on his lap. This nurse asked why he pulled it out and the patient reported I do not want it . This nurse instructed him on why he needed the NG tube for medications and feedings. I asked the patient what he would do if we put another in and he stated I do not want it . Hospitalist notified of concerns about reinsertion of the NG tube. Hospitalist agreed to wait and have the dayshift hospitalist assess the situation. Patient's Vanc was adjusted to rectal to ensure treatment for CDIFF.
--- NOTE | 2023-04-18 05:32 | PC.NURSE ---
Patient refused to attempt bedside swallow with this nurse. Patient was asked to try ice and was not cooperative.
[2023-04-18 06:52] LABS: Basophils % 0.4 %; Eosinophils # 0.2 10^3/uL (0.0-0.8); Eosinophils % 1.8 %; Hematocrit 30.5 % (37-53); Lymphocytes # 1.1 10^3/uL (0.8-4.8); Lymphocytes % 11.2 %; Mean Corpuscular HGB Conc 31.5 g/dL (30-55); Mean Corpuscular Hemoglobin 30.4 pg (27-33); Mean Corpuscular Volume 96.5 fl (82-101); Mean Platelet Volume 10.8 fL (7.4-10.4); Monocytes # 0.6 10^3/uL (0.2-0.9); Monocytes % 6.5 %; Neutrophils # 7.68 10^3/uL (1.8-7.7); Neutrophils % 79.5 %; Nucleated Red Blood Cells % 0 %; Platelet Count 529 10^3/cmm (157-399); Red Blood Count 3.16 10^6/uL (3.85-5.65); Red Cell Distribution Width 15.9 % (12.1-15.1); White Blood Count 9.66 10^3/uL (3.29-11.43)
[2023-04-18 07:11] LABS: Alanine Aminotransferase 63 U/L (0-41); Albumin Level 2.5 g/dL (3.5-5.2); Alkaline Phosphatase 157 U/L (40-130); Anion Gap 14.1 (5-19); Aspartate Amino Transferase 53 U/L (0-40); Blood Urea Nitrogen 8 mg/dL (6-20); Carbon Dioxide 25 mmol/L (22-29); Chloride 101 mmol/L (98-107); Globulin 3.2 g/dL (1.3-4.6); Glomerular Filtration Rate 368.3 mL/min (90-130); Glucose 93 mg/dL (65-115); Magnesium 1.7 mg/dL (1.7-2.3); Osmolality Calculated 280 mOsm/kg (285-295); Phosphorus 4.5 mg/dL (2.5-4.5); Potassium 4.1 mmol/L (3.5-5.1); Sodium 136 mmol/L (136-145); Total Bilirubin 0.3 mg/dL (0.15-1.2); Total Protein 5.7 g/dL (6.6-8.7)
--- NOTE | 2023-04-18 07:50 | P.PN_ITS ---
Subjective Subjective: Patient evaluated this morning at the bedside, he removed his NG tube overnight. He seems to be doing better, he is more alert and cooperative. Still appears dehydrated. Does not complain of abdominal pain. Per nursing report he had 1 bowel movement overnight, consistency seems to be improving. The white count is normal for the first time in the last week currently 9. Vitals/I&O/Wt Last Vital Signs Temp 99.5 F 04/18/23 05:00 Pulse 131 H 04/18/23 07:00 Resp 21 H 04/18/23 07:00 BP 113/78 04/18/23 07:00 Pulse Ox 95 04/18/23 07:00 O2 Del Method Nasal Cannula 04/17/23 20:01 O2 Flow Rate 3 04/17/23 20:01 04/17/23 04/18/23 04/18/23 22:59 06:59 14:59 Intake Total 833 / 945 415 / 1360 Output Total 750 / 2450 Balance 833 / -755 -335 / -1090 Weight last 48 hrs Weight 142 lb Weight 144 lb 3.2 oz Physical Exam GI: OTHER: Abdomen is soft, nontender, nondistended, ecchymoses noted on exam yesterday has improved. Urinary Catheter Management: Winslow: Cath Placed During This Visit: yes Reason for Continuing Indwelling Catheter: Accurate Measurement of Urinary Output in Critically Ill Patients Urinary Catheter Date of Insertion: 04/06/23 Urinary Catheter Time of Insertion: 20:36 Data 04/18/23 05:00 04/18/23 05:00 A&P Assessment and plan (1) Encephalopathy acute: (2) C. difficile colitis: (3) Protein-energy malnutrition: Plan 22-year-old male with history of epilepsy, self-neglect, malnutrition and C. difficile colitis. Progressing well from the general surgery standpoint, abd ominal exam is completely benign. White count close normalized. He had been tolerating tube feeds until NG tube was discontinued by the patient yesterday night. He needs to continue on oral vancomycin and possible consideration of vancomycin enemas per primary team. Per my discussion with the bedside nurse plan is to get speech pathology to do a bedside swallow study after which p.o. diet will likely be initiated. No surgical intervention is being considered at this time, general surgery will continue to follow. Attestations Medical Necessity Statement*: Patient will continue to require hospital stay for multiple medical comorbidities sensitive colitis Coding Level of Care Code 31517 Diagnoses Encephalopathy acute G93.40 C. difficile colitis A04.72 Protein-energy malnutrition E46
[2023-04-18] MEDS: terbinafine 1% Cream 15 gm 1 APPLIC TOPICAL ×2 (09:37→17:09)
[2023-04-18] MEDS: metoprolol tartrate 25 mg Tablet 50 MG PO ×2 (09:54→22:02)
[2023-04-18] MEDS: vancomycin 125 mg Capsule PO ×3 (09:57→22:31)
--- NOTE | 2023-04-18 11:19 | PM.PN ---
Subjective Subjective: Patient's mother and brother reportedly visited him yesterday. Per signout, patient had issues with nausea again last night. He self extubated his gastric tube. This morning, he again states that he wants to go home. Denies abdominal pains. Fever curve improving. Medications: Reviewed: Yes Vitals/I&O/Wt Last Vital Signs Temp 98.9 F 04/18/23 10:12 Pulse 128 H 04/18/23 09:30 Resp 20 H 04/18/23 09:30 BP 118/75 04/18/23 09:30 Pulse Ox 96 04/18/23 09:30 O2 Del Method Nasal Cannula 04/18/23 09:00 O2 Flow Rate 2 04/18/23 09:00 04/17/23 04/18/23 04/18/23 22:59 06:59 14:59 Intake Total 833 / 945 415 / 1360 60 / 60 Output Total 750 / 2450 200 / 200 Balance 833 / -755 -335 / -1090 -140 / -140 Weight last 48 hrs Weight 64.41 kg Weight 65.408 kg Physical Exam Const: OTHER: General: Patient is awake. Frail-appearing. Head: Chronically ill-appearing. Neck: No JVD. Cardiovascular: Rhythm is regular. Tachycardic. No gallops. No murmurs. Dependent edema is present. Lungs: Breath sounds are diminish in bilateral bases, no use of accessory muscles, no crackles or wheezes. Skin: No jaundice. Abdomen: Normal bowel sounds, abdomen soft and nontender. Extremities: No cyanosis. Musculoskeletal: For muscular development for his demographic. Neurological: Strength ~1/5 lower extremities. He is able to raise his upper extremities against gravity but they remain very ataxic. This is slightly improved as compared to 's exam. He is able to voice words but volume remains quite low. Urinary Catheter Management: Winslow: Cath Placed During This Visit: yes Reason for Continuing Indwelling Catheter: Accurate Measurement of Urinary Output in Critically Ill Patients Urinary Catheter Date of Insertion: 04/06/23 Urinary Catheter Time of Insertion: 20:36 Data 04/18/23 05:00 04/18/23 05:00 A&P Assessment and plan (1) Encephalopathy acute: Likely multifactorial, query critical illness polyneuropathy/myopathy Neurology following Optimize comorbidities Encourage mobilization, OOB, therapy Avoid sedating medications Delirium precautions (2) Sepsis: Source: C diff colitis Treat underlying sepsis (3) Pancolitis: C diff colitis Continue oral vancomycin C diff precautions (4) Hypomagnesemia: Replace as needed (5) Intractable epilepsy: Neuro following Defer AED management to neuro Seizure precautions (6) Difficulty swallowing: Continue speech therapy, will request evaluation today given NGT has been removed Further management regarding feeds will depend on ST evaluation Nutrition following, appreciate recommendations Monitor for refeeding syndrome (7) Protein-energy malnutrition: Nutrition following, appreciate recommendations (8) Coffee ground emesis: Continue PPI, high risk for stress ulcer Monitoring blood counts (9) Major depressive disorder, recurrent, moderate: Continue sertraline, dose adjusted by neurology Plan DVT ppx: SCD Code: Full Code Attestations Medical Necessity Statement*: Patient requires ongoing hospitalization for serial labs, AED, therapy, and supportive care. Coding Level of Care Code Acute Code for [facility] Diagnoses Encephalopathy acute G93.40 Sepsis A41.9 Pancolitis K51.00 Hypomagnesemia E83.42 Intractable epilepsy G40.919 Difficulty swallowing R13.10 Protein-energy malnutrition E46 Coffee ground emesis K92.0 Major depressive disorder, recurrent, moderate F33.1
[2023-04-18] MEDS: pantoprazole 40 mg SDV IVP (12:30)
[2023-04-18] MEDS: lacosamide 100 MG in sodium chloride 0.9% 50 ML 120 MG IV ×2 (12:31→23:11)
[2023-04-19] VITALS (24 sets, daily range): BP systolic 111–132; BP diastolic 73–89; PULSE 113–153; RESP 14–24; TEMP 36.5–37.9; O2SAT 88–98
[2023-04-19] MEDS: pantoprazole 40 mg SDV IVP ×2 (02:11→14:06)
[2023-04-19 04:32] LABS: Basophils # 0.1 10^3/uL (0.0-0.1); Basophils % 0.5 %; Eosinophils # 0.2 10^3/uL (0.0-0.8); Eosinophils % 1.9 %; Hematocrit 31.3 % (37-53); Lymphocytes # 1.2 10^3/uL (0.8-4.8); Mean Corpuscular Hemoglobin 29.9 pg (27-33); Mean Corpuscular Volume 96.6 fl (82-101); Mean Platelet Volume 10.6 fL (7.4-10.4); Monocytes # 0.7 10^3/uL (0.2-0.9); Monocytes % 6.3 %; Neutrophils # 8.96 10^3/uL (1.8-7.7); Neutrophils % 79.6 %; Nucleated Red Blood Cells % 0 %; Platelet Count 624 10^3/cmm (157-399); Red Blood Count 3.24 10^6/uL (3.85-5.65); Red Cell Distribution Width 15.7 % (12.1-15.1); White Blood Count 11.26 10^3/uL (3.29-11.43)
[2023-04-19 04:57] LABS: Alanine Aminotransferase 85 U/L (0-41); Albumin Level 2.8 g/dL (3.5-5.2); Alkaline Phosphatase 160 U/L (40-130); Anion Gap 15.8 (5-19); Aspartate Amino Transferase 76 U/L (0-40); Blood Urea Nitrogen 8 mg/dL (6-20); Calcium 9.4 mg/dL (8.5-10.5); Carbon Dioxide 25 mmol/L (22-29); Chloride 103 mmol/L (98-107); Globulin 3.4 g/dL (1.3-4.6); Glomerular Filtration Rate 368.3 mL/min (90-130); Glucose 97 mg/dL (65-115); Magnesium 1.6 mg/dL (1.7-2.3); Osmolality Calculated 288 mOsm/kg (285-295); Phosphorus 3.8 mg/dL (2.5-4.5); Potassium 3.8 mmol/L (3.5-5.1); Sodium 140 mmol/L (136-145); Total Bilirubin 0.3 mg/dL (0.15-1.2); Total Protein 6.2 g/dL (6.6-8.7)
[2023-04-19] MEDS: levothyroxine 75 mcg Tablet PO (05:58)
[2023-04-19] MEDS: sertraline 100 mg Tablet 50 MG PO (05:59)
[2023-04-19] MEDS: metoprolol tartrate 25 mg Tablet 50 MG PO ×3 (05:59→23:33)
[2023-04-19] MEDS: magnesium sulfate premix 2 GM/50 ML PIGGYBACK IV (07:49)
[2023-04-19] MEDS: multivitamin therapeutic Tablet 1 TAB PO (09:33)
[2023-04-19] MEDS: vancomycin 100 mg/1 mL Oral Syringe 125 MG PO ×4 (09:34→21:14)
[2023-04-19] MEDS: terbinafine 1% Cream 15 gm 1 APPLIC TOPICAL ×2 (09:35→17:47)
[2023-04-19] MEDS: lacosamide 100 MG in sodium chloride 0.9% 50 ML 120 MG IV ×2 (10:37→23:33)
--- NOTE | 2023-04-19 11:04 | PM.PN ---
Subjective Subjective: Patient reportedly tolerating diet. This morning, he is sleeping but awakens easily to name. He denies pain, fevers or chills. Remains severely weak. Medications: Reviewed: Yes Vitals/I&O/Wt Last Vital Signs Temp 97.7 F 04/19/23 06:00 Pulse 116 H 04/19/23 07:53 Resp 20 H 04/19/23 07:53 BP 132/80 04/19/23 06:00 Pulse Ox 97 04/19/23 07:53 O2 Del Method Nasal Cannula 04/19/23 07:53 O2 Flow Rate 2 04/19/23 07:53 04/18/23 04/19/23 04/19/23 22:59 06:59 14:59 Intake Total 420 / 532 112 / 644 Output Total 200 / 400 325 / 725 Balance 220 / 132 -213 / -81 Weight last 48 hrs Weight 64.864 kg Weight 64.41 kg Physical Exam Const: OTHER: General: Patient is awake. Frail-appearing. Laying in bed. Head: Chronically ill-appearing. Neck: No JVD. Cardiovascular: Rhythm is regula and tachycardic. No gallops. No murmurs. Dependent edema is present. Lungs: Breath sounds are diminish in bilateral bases, no use of accessory muscles, no crackles or wheezes. Skin: No jaundice. Abdomen: Normal bowel sounds, abdomen soft and nontender. Extremities: No cyanosis. Musculoskeletal: For muscular development for his demographic. Neurological: Strength ~1/5 in lower extremities, unchanged. He is able to raise his upper extremities against gravity but they remain very ataxic; exam similar to yesterday. Able to voice words but volume remains low. Urinary Catheter Management: Winslow: Cath Placed During This Visit: yes Reason for Continuing Indwelling Catheter: Accurate Measurement of Urinary Output in Critically Ill Patients Urinary Catheter Date of Insertion: 04/06/23 Urinary Catheter Time of Insertion: 20:36 Data 04/19/23 03:55 04/19/23 03:55 A&P Assessment and plan (1) Encephalopathy acute: Likely multifactorial, query critical illness polyneuropathy/myopathy Mentation is improving, approaching his baseline; however he remains severely weak Neurology following Encourage mobilization, OOB, therapy Avoid sedating medications Delirium precautions (2) Sepsis: Source: C diff colitis Treat underlying sepsis (3) Pancolitis: C diff colitis Continue oral vancomycin C diff precautions (4) Intractable epilepsy: Neuro following Defer AED management to neuro Seizure precautions (5) Difficulty swallowing: Speech therapy is following Defer diet consistency to ST Monitor for aspiration (6) Protein-energy malnutrition: Nutrition following, appreciate recommendations (7) Coffee ground emesis: Resolved, on PPI (8) Major depressive disorder, recurrent, moderate: Continue sertraline Plan DVT ppx: SCD Code: Full Code Attestations Medical Necessity Statement*: Patient requires ongoing hospitalization for serial labs, AED, therapy, and supportive care. Coding Level of Care Code Acute Code for Chg Fwd Diagnoses Encephalopathy acute G93.40 Sepsis A41.9 Pancolitis K51.00 Intractable epilepsy G40.919 Difficulty swallowing R13.10 Protein-energy malnutrition E46 Coffee ground emesis K92.0 Major depressive disorder, recurrent, moderate F33.1
[2023-04-20] VITALS (11 sets, daily range): BP systolic 108–125; BP diastolic 63–86; PULSE 114–157; RESP 16–22; TEMP 36.5–37.4; O2SAT 91–100
[2023-04-20] MEDS: ondansetron 2 mg/ML SDV 2 mL 4 MG IVP (01:53)
[2023-04-20] MEDS: pantoprazole 40 mg SDV IVP ×2 (01:53→13:40)
[2023-04-20 04:52] LABS: Basophils # 0.1 10^3/uL (0.0-0.1); Basophils % 0.5 %; Eosinophils # 0.2 10^3/uL (0.0-0.8); Eosinophils % 1.2 %; Hematocrit 32.2 % (37-53); Lymphocytes # 1.3 10^3/uL (0.8-4.8); Lymphocytes % 9.3 %; Mean Corpuscular HGB Conc 30.7 g/dL (30-55); Mean Corpuscular Hemoglobin 29.8 pg (27-33); Mean Platelet Volume 10.4 fL (7.4-10.4); Monocytes # 0.7 10^3/uL (0.2-0.9); Monocytes % 4.9 %; Neutrophils # 11.96 10^3/uL (1.8-7.7); Neutrophils % 83.3 %; Nucleated Red Blood Cells % 0 %; Platelet Count 758 10^3/cmm (157-399); Red Blood Count 3.32 10^6/uL (3.85-5.65); Red Cell Distribution Width 15.8 % (12.1-15.1); White Blood Count 14.34 10^3/uL (3.29-11.43)
[2023-04-20 05:18] LABS: Alanine Aminotransferase 73 U/L (0-41); Albumin Level 3.2 g/dL (3.5-5.2); Alkaline Phosphatase 150 U/L (40-130); Anion Gap 14.5 (5-19); Aspartate Amino Transferase 37 U/L (0-40); Blood Urea Nitrogen 9 mg/dL (6-20); Calcium 9.6 mg/dL (8.5-10.5); Carbon Dioxide 26 mmol/L (22-29); Chloride 101 mmol/L (98-107); Globulin 3.5 g/dL (1.3-4.6); Glomerular Filtration Rate 264.3 mL/min (90-130); Glucose 106 mg/dL (65-115); Magnesium 1.5 mg/dL (1.7-2.3); Osmolality Calculated 285 mOsm/kg (285-295); Phosphorus 4.2 mg/dL (2.5-4.5); Potassium 3.5 mmol/L (3.5-5.1); Sodium 138 mmol/L (136-145); Total Bilirubin 0.3 mg/dL (0.15-1.2); Total Protein 6.7 g/dL (6.6-8.7)
[2023-04-20] MEDS: sertraline 100 mg Tablet 50 MG PO (06:31)
[2023-04-20] MEDS: metoprolol tartrate 25 mg Tablet 50 MG PO ×2 (06:31→21:48)
[2023-04-20] MEDS: levothyroxine 75 mcg Tablet PO (06:32)
[2023-04-20] MEDS: multivitamin therapeutic Tablet 1 TAB PO (10:28)
[2023-04-20] MEDS: vancomycin 100 mg/1 mL Oral Syringe 125 MG PO ×4 (10:28→21:49)
[2023-04-20] MEDS: terbinafine 1% Cream 15 gm 1 APPLIC TOPICAL ×2 (10:28→18:15)
[2023-04-20] MEDS: lacosamide 100 MG in sodium chloride 0.9% 50 ML IV (11:22)
--- NOTE | 2023-04-20 14:17 | PC.NURSE ---
pts hr is staying around 140s, notified giving po dose of metoprolol early
--- NOTE | 2023-04-20 14:56 | PM.PN ---
Subjective Subjective: Patient's only complaint is persistent desire to go home. He denies nausea, abdominal pain, fevers or chills. Per report, diarrhea has significantly improved. Medications: Reviewed: Yes Vitals/I&O/Wt Last Vital Signs Temp 99.0 F 04/20/23 12:00 Pulse 132 H 04/20/23 12:00 Resp 17 04/20/23 12:00 BP 110/63 04/20/23 12:00 Pulse Ox 93 04/20/23 12:00 O2 Del Method Room Air 04/20/23 09:20 O2 Flow Rate 3 04/19/23 21:15 04/19/23 04/20/23 04/20/23 22:59 06:59 14:59 Intake Total 402 / 554 60 / 614 272 / 272 Output Total 400 / 400 Balance 402 / 554 -340 / 214 272 / 272 Weight last 48 hrs Weight 66.361 kg Weight 64.864 kg Physical Exam Const: OTHER: General: Patient is awake. Frail-appearing. Laying in bed. Head: Chronically ill-appearing. Neck: No JVD. Cardiovascular: Rhythm is regular and tachycardic. No gallops. No murmurs. Dependent edema is unchanged. Lungs: Breath sounds are diminish in bilateral bases, no use of accessory muscles, no crackles or wheezes. Skin: No jaundice. Abdomen: Normal bowel sounds, abdomen soft and nontender. Extremities: No cyanosis. Musculoskeletal: For muscular development for his demographic. Neurological: Strength 1/5 in lower extremities, slightly improved possibly from Friday. He is able to raise his upper extremities against gravity but they remain very ataxic; exam similar to yesterday but with improved strength. Able to voice words with volume improving. Urinary Catheter Management: Winslow: Cath Placed During This Visit: yes Reason for Continuing Indwelling Catheter: Accurate Measurement of Urinary Output in Critically Ill Patients Urinary Catheter Date of Insertion: 04/06/23 Urinary Catheter Time of Insertion: 20:36 Data 04/20/23 04:28 04/20/23 04:28 A&P Assessment and plan (1) Encephalopathy acute: Mentation appears close to baseline; however he remains severely weak with lower extremities weaker than upper extremities Neurology following May benefit from additional spinal imaging given persist lower extremity weakness, defer decision to neurology Encourage mobilization, OOB, therapy Delirium precautions (2) Sepsis: Source: C diff colitis Treat underlying sepsis Leukocytosis and worsening thrombocytosis concerning for worsening condition Check urinalysis (3) Pancolitis: C diff colitis Continue oral vancomycin C diff precautions (4) Intractable epilepsy: Neuro following Defer AED management to neuro Seizure precautions (5) Difficulty swallowing: ST following, defer diet consistency to ST, currently dysphagia level 6 Monitoring for aspiration (6) Protein-energy malnutrition: Nutrition following, appreciate recommendations (7) Coffee ground emesis: Holding pharmacological DVT ppx Continue PPI (8) Major depressive disorder, recurrent, moderate: Continue sertraline Plan DVT ppx: SCD Code: Full Code Attestations Medical Necessity Statement*: Patient requires ongoing hospitalization for serial labs, AED, therapy, and supportive care. Coding Level of Care Code Acute Code for [facility] Fwd Diagnoses Encephalopathy acute G93.40 Sepsis A41.9 Pancolitis K51.00 Intractable epilepsy G40.919 Difficulty swallowing R13.10 Protein-energy malnutrition E46 Coffee ground emesis K92.0 Major depressive disorder, recurrent, moderate F33.1
--- NOTE | 2023-04-20 15:18 | XRR_ITS ---
PROCEDURE INFORMATION: Exam: XR Chest Exam date and time: 04/20/2023 6:53 PM Age: 22 years old Clinical indication: Condition or disease; Patient HX: Hypoxia; Tachycardia; Low o2 sat; Leukocytosis TECHNIQUE: Imaging protocol: Radiologic exam of the chest. Views: 1 view. COMPARISON: CR (CHEST, ) 04/13/2023 6:35 PM FINDINGS: Tubes, catheters and devices: The right internal jugular central line in the enteric tube have been removed. Lungs: Decreasing left lower lobe atelectasis versus pneumonia. Pleural spaces: Interval development of a small left pleural effusion. No pneumothorax. Heart/Mediastinum: The cardiac silhouette and mediastinal contours are unremarkable. Bones/joints: Unremarkable for age. XR/XR chest 1V portable [id number] IMPRESSION: 1. Decreasing left lower lobe atelectasis versus pneumonia. Follow-up to ensure complete resolution is recommended. 2. Interval development of a small left pleural effusion. 3. Incidental/nonacute findings are listed in the report.
[2023-04-20] MEDS: metoprolol tartrate 1 mg/1 mL SDV 5 mL 2.5 MG IVP (15:22)
[2023-04-20 15:35] LABS: C Reactive Protein 38.1 mg/L (0.0-4.9)
[2023-04-20 15:42] LABS: Procalcitonin 0.56 ng/mL (0-0.5)
[2023-04-20] MEDS: LORazepam 0.5 mg Tablet PO (16:29)
--- NOTE | 2023-04-20 16:53 | PC.NURSE ---
pt repeatedly pulling off oxygen mask and tele leads. nurse replaced multiple times, with in 5 minutes they are off again. pt doesn't have the capacity to understand the importance of needing tele and the oxygen mask on. refusung to cooperate
[2023-04-20] MEDS: lacosamide 100 MG in sodium chloride 0.9% 50 ML 120 MG IV (21:38)
[2023-04-21] VITALS (11 sets, daily range): BP systolic 113–134; BP diastolic 69–87; PULSE 99–141; RESP 16–20; TEMP 36.6–37.2; O2SAT 93–96
[2023-04-21] MEDS: pantoprazole 40 mg SDV IVP ×3 (00:51→22:17)
[2023-04-21 04:36] LABS: Basophils # 0.1 10^3/uL (0.0-0.1); Basophils % 0.6 %; Eosinophils # 0.2 10^3/uL (0.0-0.8); Eosinophils % 1.8 %; Hematocrit 31.5 % (37-53); Lymphocytes # 1.1 10^3/uL (0.8-4.8); Lymphocytes % 9.2 %; Mean Corpuscular HGB Conc 30.5 g/dL (30-55); Mean Corpuscular Hemoglobin 30.3 pg (27-33); Mean Corpuscular Volume 99.4 fl (82-101); Mean Platelet Volume 10.3 fL (7.4-10.4); Monocytes # 0.6 10^3/uL (0.2-0.9); Monocytes % 4.6 %; Neutrophils # 9.97 10^3/uL (1.8-7.7); Neutrophils % 83.2 %; Nucleated Red Blood Cells % 0 %; Platelet Count 729 10^3/cmm (157-399); Red Blood Count 3.17 10^6/uL (3.85-5.65); White Blood Count 11.97 10^3/uL (3.29-11.43)
[2023-04-21 04:56] LABS: Chloride 102 mmol/L (98-107); Sodium 141 mmol/L (136-145)
[2023-04-21 05:15] LABS: Magnesium 1.4 mg/dL (1.7-2.3); Phosphorus 4.1 mg/dL (2.5-4.5)
[2023-04-21 05:23] LABS: Alanine Aminotransferase 54 U/L (0-41); Aspartate Amino Transferase 28 U/L (0-40); Blood Urea Nitrogen 9 mg/dL (6-20); Calcium 9.7 mg/dL (8.5-10.5); Carbon Dioxide 26 mmol/L (22-29); Glomerular Filtration Rate 368.3 mL/min (90-130); Glucose 87 mg/dL (65-115); Osmolality Calculated 290 mOsm/kg (285-295); Total Bilirubin 0.3 mg/dL (0.15-1.2); Total Protein 6.3 g/dL (6.6-8.7)
[2023-04-21 05:28] LABS: Anion Gap 15.9 (5-19)
[2023-04-21 05:29] LABS: Albumin Level 3.1 g/dL (3.5-5.2); Alkaline Phosphatase 136 U/L (40-130); Globulin 3.2 g/dL (1.3-4.6)
[2023-04-21 05:30] LABS: Potassium 2.9 mmol/L (3.5-5.1)
[2023-04-21] MEDS: levothyroxine 75 mcg Tablet PO (05:31)
[2023-04-21] MEDS: sertraline 100 mg Tablet 50 MG PO (05:31)
[2023-04-21] MEDS: metoprolol tartrate 25 mg Tablet 50 MG PO ×3 (06:06→22:17)
[2023-04-21] MEDS: potassium chloride oral liq 20 mEq/15 mL UDC 40 MEQ PO (06:54)
--- NOTE | 2023-04-21 07:55 | PM.PN ---
Subjective Subjective: Patient evaluated at bedside this morning. Does not complain of abdominal pain. Still appears significantly weak. Bedside nursing report states that patient had 2 bowel movements overnight, more formed but still some looseness. Over the last 48 hours White count trended up to 14 and today she has trended down to 11.9 Vitals/I&O/Wt Last Vital Signs Temp 98.8 F 04/21/23 04:00 Pulse 99 04/21/23 07:48 Resp 20 H 04/21/23 07:48 BP 121/69 04/21/23 04:00 Pulse Ox 95 04/21/23 07:48 O2 Del Method Room Air 04/21/23 07:48 O2 Flow Rate 5 04/20/23 20:00 04/20/23 04/21/23 04/21/23 22:59 06:59 14:59 Intake Total 352 / 744 Output Total 350 / 350 Balance 352 / 744 -350 / 394 Weight last 48 hrs Weight 137 lb 8 oz Weight 146 lb 4.8 oz Physical Exam GI: OTHER: Abdomen is soft, nontender, nondistended Urinary Catheter Management: Winslow: Cath Placed During This Visit: yes Reason for Continuing Indwelling Catheter: Acute Urinary Retention or Obstruction Urinary Catheter Date of Insertion: 04/06/23 Urinary Catheter Time of Insertion: 20:36 Data 04/21/23 03:09 04/21/23 03:09 A&P Assessment and plan (1) C. difficile colitis: Plan 22-year-old male known to me for pancolitis due to C. difficile. Patient appears to be improving from his pancolitis, but he still has some loose bowel movements. While there is improvement, escalation of therapy may be considered by primary team as Bowel movements are not completely formed yet. Physical exam has remained unremarkable with a soft and nontender abdomen. Patient has multiple other medical problems that required attention of both the primary team and urology team, from the surgical standpoint he is slowly improving. No acute surgical intervention is indicated at this time. Attestations Medical Necessity Statement*: Patient will require continued hospital stay for management of pancolitis, intractable epilepsy, encephalopathy and malnutrition. Coding Level of Care Code Acute Code for [facility] Diagnoses C. difficile colitis A04.72
[2023-04-21 09:08] LABS: Add Urine Microscopic? YES; Bilirubin Urine Neg (Negative); Blood Urine 3+ (Negative); Glucose Urine UA Norm (Normal); Ketones Urine Negative (Negative); Leukocyte Esterase Urine 1+ (Negative); Nitrate Urine Negative (Negative); Protein Urine 2+ (Negative); Urine Appearance Cloudy (CLEAR); Urine Color Yellow (Yellow); Urobilinogen Urine Neg (Negative); pH Urine 5 (5-7)
[2023-04-21 09:21] LABS: Add Urine Culture? Yes; Bacteria Urine TRACE /hpf; Mucus Urine 1+ /hpf; RBC Urine 40-50 /hpf (0-2); Squamous Epithelial Cell Urine 0-4 /hpf (0-5); WBC Urine 0-4 /hpf (0-5)
[2023-04-21] MEDS: lacosamide 100 MG in sodium chloride 0.9% 50 ML 120 MG IV ×2 (10:55→21:00)
[2023-04-21] MEDS: vancomycin 100 mg/1 mL Oral Syringe 125 MG PO ×4 (10:57→21:05)
[2023-04-21] MEDS: terbinafine 1% Cream 15 gm 1 APPLIC TOPICAL ×2 (10:58→17:12)
[2023-04-21 11:33] LABS: D Dimer 1.87 ug/mLFEU (0-0.59)
--- NOTE | 2023-04-21 13:44 | P.PN_ITS ---
Subjective Subjective: Tachycardia noted No signs of PE I believe this is related to dehydration We will request venous Doppler Patient is requesting to be discharged home He was watching television when I entered the room Vitals/I&O/Wt Last Vital Signs Temp 98.6 F 04/21/23 11:12 Pulse 118 H 04/21/23 11:12 Resp 16 04/21/23 11:12 BP 116/70 04/21/23 11:12 Pulse Ox 96 04/21/23 11:12 O2 Del Method Room Air 04/21/23 11:12 O2 Flow Rate 5 04/20/23 20:00 04/20/23 04/21/23 04/21/23 22:59 06:59 14:59 Intake Total 352 / 744 112 / 112 Output Total 350 / 350 Balance 352 / 744 -350 / 394 112 / 112 Weight last 48 hrs Weight 62.369 kg Weight 66.361 kg Physical Exam Narrative: Awake and alert Watching television Nonfocal neuro exam Muffled voice No respiratory distress Abdomen soft Winslow catheter in place S1, S2 tachycardia Urinary Catheter Management: Winslow: Cath Placed During This Visit: yes Reason for Continuing Indwelling Catheter: Acute Urinary Retention or O bstruction Urinary Catheter Date of Insertion: 04/06/23 Urinary Catheter Time of Insertion: 20:36 Data 04/21/23 03:09 04/21/23 03:09 A&P Assessment and plan (1) Intractable epilepsy: (2) Encephalopathy acute: (3) C. difficile colitis: (4) Difficulty swallowing: (5) Pancolitis: (6) Protein-energy malnutrition: (7) Coffee ground emesis: (8) Pneumonia: (9) Hypomagnesemia: (10) Sepsis: (11) Major depressive disorder, recurrent, moderate: (12) Generalized anxiety disorder: Plan Acute encephalopathy: Patient back to baseline Sepsis: Fever improving Mild leukocytosis with thrombocytosis Leukocytosis slightly better than yesterday C. difficile colitis In case of further worsening we might have to Escalate, continue p.o. vancomycin for now Intractable epilepsy currently on IV antiseizure medications Difficulty swallowing Currently on dysphagia diet Coffee-ground emesis no recurrence I will add DVT prophylaxis with heparin High D-dimer no signs of PE request venous Doppler Full code Hypomagnesemia: Repleted Attestations Medical Necessity Statement*: Continue medical management Diagnoses Intractable epilepsy G40.919 Encephalopathy acute G93.40 C. difficile colitis A04.72 Difficulty swallowing R13.10 Pancolitis K51.00 Protein-energy malnutrition E46 Coffee ground emesis K92.0 Pneumonia J18.9 Hypomagnesemia E83.42 Sepsis A41.9 Major depressive disorder, recurrent, moderate F33.1 Generalized anxiety disorder F41.1
--- NOTE | 2023-04-21 15:48 | ECG_ITS ---
[facility] Test Date: 2023-04-21 Pat Name: Hussein Man Department: Room: 260 Gender: Male P[employer]: : 2000 Requested By: Lindsay Avalos Order Number: [id number] Elver MD: Tiffany Johnson M.D. Measurements Intervals [place] Rate: 136 P: 46 PA: 150 QRS: 54 QRSD: 71 T: 35 QT: 281 QTc: 423 Interpretive Statements SINUS TACHYCARDIA MINIMAL ST DEPRESSION [0.025+ mV ST DEPRESSION] ABNORMAL RHYTHM ECG Compared to ECG 03/03/2023 14:30:31 Sinus rhythm no longer present ST (T wave) deviation still present Electronically Signed On 04-21-2023 18:30:45 [employer]NEY[employer] by Tiffany Johnson M.D. [id number]
[2023-04-21] MEDS: heparin 5,000 unit/mL INJ 1 mL 5000 UNIT SUBCUT (17:12)
--- NOTE | 2023-04-21 19:07 | XRR_ITS ---
PROCEDURE INFORMATION: Exam: XR Chest Exam date and time: 04/21/2023 8:18 PM Age: 22 years old Clinical indication: Device placement; Picc; Additional info: Invasive line placement TECHNIQUE: Imaging protocol: Radiologic exam of the chest. Views: 1 view. COMPARISON: CR (CHEST, ) 04/20/2023 6:53 PM FINDINGS: Tubes, catheters and devices: New right-sided PICC line with distal tip overlying the distal SVC. Lungs: Low lung volumes bilaterally. Left lower lobe atelectasis versus infiltrate, unchanged. Mild right perihilar atelectasis, unchanged. Pleural spaces: No pleural effusion. No pneumothorax. Heart/Mediastinum: No cardiomegaly. Bones/joints: Unremarkable. XR/XR chest 1V portable [id number] IMPRESSION: 1. New right-sided PICC line with distal tip overlying the distal SVC. 2. Left lower lobe atelectasis versus infiltrate, unchanged.
--- NOTE | 2023-04-21 19:34 | PC.NURSE ---
Consulted for placement of PICC r/t TPN therapy. Staff called father for consent upon my arrival as pt is unable to give consent himself. Explained procedure and answered questions. Consent obtained. Assessed RUE and noted basilic to be good target vessel at 4.5 mm in diameter and free of evidence of thrombus or stenosis. Using US guidance, MST, and sterile technique the RUE basilic vein was accessed x 1 stick. Device fed easily. Device secured and dressed. All 3 ports aspirate and flush easily. EBL 5ml. Device is 39 cm hubbed to skin. Noted RUE is 28 cm in circumference at 10 cm above the AC fossa. Pt tolerated well. Report to primary nurse. Chest xray ordered and performed.
--- NOTE | 2023-04-21 20:15 | PC.NURSE ---
Called Brayan to notify of x-ray results being back. He stated okay to use PICC now.
[2023-04-21] MEDS: magnesium sulfate premix 1 GM/100 ML PIGGYBACK IV (20:27)
[2023-04-22] VITALS (10 sets, daily range): BP systolic 118–140; BP diastolic 75–90; PULSE 116–139; RESP 14–18; TEMP 36.4–36.7; O2SAT 94–98
--- NOTE | 2023-04-22 00:39 | PC.NURSE ---
When going to turn patient, patient states, no, don't. Patient educated that turns are needed in order to prevent pressure injuries. Patient becomes frustrated with staff when being turned.
[2023-04-22] MEDS: heparin 5,000 unit/mL INJ 1 mL 5000 UNIT SUBCUT ×2 (01:27→15:11)
--- NOTE | 2023-04-22 03:08 | PC.NURSE ---
When going in room to turn patient, patient shakes his head no. Patient educated on why we are turning him.
--- NOTE | 2023-04-22 03:47 | PC.NURSE ---
Addendum entered by Melissa Smith RN 04/22/23 04:58: Correction: Dr. Baird notified. Original Note: Patient only had 100 ml urine output in kelly this shift. Per documentation, he had 200 ml during day shift. He is taking in very little orally. His heart rate has been 120s-140s sinus tach. Dr. Medeiros notified.
[2023-04-22] MEDS: levothyroxine 75 mcg Tablet PO (05:27)
[2023-04-22] MEDS: sertraline 100 mg Tablet 50 MG PO (05:27)
[2023-04-22] MEDS: metoprolol tartrate 25 mg Tablet 50 MG PO ×3 (05:28→23:12)
[2023-04-22] MEDS: lanolin oint 7 gm 1 APPLIC TOPICAL (05:28)
[2023-04-22 05:44] LABS: Basophils # 0.1 10^3/uL (0.0-0.1); Basophils % 0.6 %; Eosinophils # 0.2 10^3/uL (0.0-0.8); Eosinophils % 1.5 %; Hematocrit 30.4 % (37-53); Lymphocytes # 1.2 10^3/uL (0.8-4.8); Lymphocytes % 10.1 %; Mean Corpuscular HGB Conc 30.6 g/dL (30-55); Mean Corpuscular Hemoglobin 30.2 pg (27-33); Mean Corpuscular Volume 98.7 fl (82-101); Mean Platelet Volume 10.1 fL (7.4-10.4); Monocytes # 0.6 10^3/uL (0.2-0.9); Monocytes % 4.6 %; Neutrophils # 9.92 10^3/uL (1.8-7.7); Neutrophils % 82.7 %; Nucleated Red Blood Cells % 0 %; Platelet Count 747 10^3/cmm (157-399); Red Blood Count 3.08 10^6/uL (3.85-5.65); White Blood Count 11.99 10^3/uL (3.29-11.43)
[2023-04-22 06:05] LABS: Anion Gap 16.4 (5-19); Blood Urea Nitrogen 8 mg/dL (6-20); Calcium 9.3 mg/dL (8.5-10.5); Carbon Dioxide 25 mmol/L (22-29); Chloride 102 mmol/L (98-107); Glomerular Filtration Rate 368.3 mL/min (90-130); Glucose 90 mg/dL (65-115); Osmolality Calculated 288 mOsm/kg (285-295); Potassium 3.4 mmol/L (3.5-5.1); Sodium 140 mmol/L (136-145)
[2023-04-22 06:06] LABS: Magnesium 1.5 mg/dL (1.7-2.3)
--- NOTE | 2023-04-22 10:21 | PM.PN ---
Subjective Subjective: Afebrile leukocytosis trending down Patient is still asking when he could be discharged home Potassium 3.4 No significant overnight events Patient is still tachycardic however slightly better heart rate around 110 Low magnesium and potassium noted PICC line was placed for difficult IV access yesterday Vitals/I&O/Wt Last Vital Signs Temp 98.1 F 04/22/23 07:28 Pulse 116 H 04/22/23 07:28 Resp 16 04/22/23 07:28 BP 128/83 04/22/23 07:28 Pulse Ox 94 04/22/23 07:28 O2 Del Method Room Air 04/22/23 07:28 O2 Flow Rate 5 04/20/23 20:00 04/21/23 04/22/23 04/22/23 22:59 06:59 14:59 Intake Total 382 / 494 120 / 614 Output Total 200 / 200 175 / 375 Balance 182 / 294 -55 / 239 Weight last 48 hrs Weight 61.643 kg Weight 62.369 kg Physical Exam Narrative: Sinus tachycardia heart rate around 110 Signs of dehydration improved Abdomen soft Winslow catheter in place Muffled voice Able to follow commands Patient was asking if he could be discharged home Watching television Lower extremity no significant swelling Urinary Catheter Management: Winslow: Cath Placed During This Visit: yes Reason for Continuing Indwelling Catheter: Other Urinary Catheter Date of Insertion: 04/06/23 Urinary Catheter Time of Insertion: 20:36 Data 04/22/23 05:22 04/22/23 05:22 Micro: Microbiology 04/21/23 08:46 Urine Culture - Preliminary Urine,Clean Catch Yeast species A&P Assessment and plan (1) Intractable epilepsy: (2) Encephalopathy acute: (3) C. difficile colitis: (4) Difficulty swallowing: (5) Pancolitis: (6) Protein-energy malnutrition: (7) Coffee ground emesis: (8) Pneumonia: (9) Hypomagnesemia: (10) Sepsis: (11) Major depressive disorder, recurrent, moderate: (12) Generalized anxiety disorder: Plan Sepsis: Resolving C. difficile colitis: Improving continue p.o. vancomycin Intractable epilepsy continue IV antiepileptics PICC line has been placed 04/21 Appreciate speech therapy recommendations No recurrence of coffee-ground emesis Currently on heparin for DVT prophylaxis Awaiting venous Doppler CTA did not show PE Full code We will replenish potassium and magnesium today as well Attestations Medical Necessity Statement*: Continue medical management Diagnoses Intractable epilepsy G40.919 Encephalopathy acute G93.40 C. difficile colitis A04.72 Difficulty swallowing R13.10 Pancolitis K51.00 Protein-energy malnutrition E46 Coffee ground emesis K92.0 Pneumonia J18.9 Hypomagnesemia E83.42 Sepsis A41.9 Major depressive disorder, recurrent, moderate F33.1 Generalized anxiety disorder F41.1
[2023-04-22] MEDS: multivitamin therapeutic Tablet 1 TAB PO (10:28)
[2023-04-22] MEDS: sodium chloride 0.9% 1,000 ML 75 ML IV ×2 (10:28→23:12)
[2023-04-22] MEDS: terbinafine 1% Cream 15 gm 1 APPLIC TOPICAL ×2 (10:28→18:21)
[2023-04-22] MEDS: vancomycin 100 mg/1 mL Oral Syringe 125 MG PO ×4 (10:28→21:19)
[2023-04-22] MEDS: lacosamide 100 MG in sodium chloride 0.9% 50 ML 120 MG IV ×2 (11:28→21:20)
[2023-04-22] MEDS: potassium chloride ER 20 mEq Tablet 40 MEQ PO (12:22)
[2023-04-22] MEDS: pantoprazole 40 mg SDV IVP ×2 (12:22→23:12)
[2023-04-22] MEDS: magnesium sulfate premix 2 GM/50 ML PIGGYBACK IV (12:22)
--- NOTE | 2023-04-22 12:51 | PM.PN ---
Subjective Subjective: Patient clinical status remain the same. Per nursing report in the last 12 hours patient has had 2 semiloose bowel movements. He has remained afebrile and does not complain of abdominal pain. Vitals/I&O/Wt Last Vital Signs Temp 98.1 F 04/22/23 11:17 Pulse 128 H 04/22/23 11:17 Resp 17 04/22/23 11:17 BP 132/75 04/22/23 11:17 Pulse Ox 96 04/22/23 11:17 O2 Del Method Room Air 04/22/23 11:17 O2 Flow Rate 5 04/20/23 20:00 04/21/23 04/22/23 04/22/23 22:59 06:59 14:59 Intake Total 382 / 494 120 / 614 52 / 52 Output Total 200 / 200 175 / 375 Balance 182 / 294 -55 / 239 52 / 52 Weight last 48 hrs Weight 135 lb 14.4 oz Weight 137 lb 8 oz Physical Exam GI: OTHER: Abdomen is soft, nontender, nondistended. Urinary Catheter Management: Winslow: Cath Placed During This Visit: yes Reason for Continuing Indwelling Catheter: Other Urinary Catheter Date of Insertion: 04/06/23 Urinary Catheter Time of Insertion: 20:36 Data 04/22/23 05:22 04/22/23 05:22 Micro: Microbiology 04/21/23 08:46 Urine Culture - Preliminary Urine,Clean Catch Yeast species A&P Assessment and plan (1) C. difficile colitis: Plan Is a 22-year-old male known to my service due to C. difficile colitis, he has several medical comorbidities including intractable epilepsy and acute encephalopathy. From the C. difficile colitis, he has shown improvement on his biochemical markers, his abdominal exam has remained benign and is actually improved over the last 2 days. Despite this improvement he still continues to have multiple semiliquid bowel movements per day, which indicates that clinical picture has not completely resolved. In the setting it may be reported consideration of escalation of therapy to feed Oxymycin or even consideration for possible outside GI consultation for fecal transplant. At the moment there is no indication for surgical intervention. Surgery will continue to follow-up in the periphery Attestations Medical Necessity Statement*: Patient with C. difficile colitis, continues to improve, will require several days of hospital stay due to multiple medical comorbidities. Coding Level of Care Code Acute Code for Chg Fwd Diagnoses C. difficile colitis A04.72
[2023-04-22] MEDS: metroNIDAZOLE 500 MG Tablet PO ×2 (15:11→21:20)
[2023-04-23] VITALS (9 sets, daily range): BP systolic 116–133; BP diastolic 67–89; PULSE 102–131; RESP 16–18; TEMP 36.5–36.9; O2SAT 94–97
[2023-04-23] MEDS: heparin 5,000 unit/mL INJ 1 mL 5000 UNIT SUBCUT ×2 (02:37→14:16)
[2023-04-23 05:26] LABS: Basophils # 0.1 10^3/uL (0.0-0.1); Basophils % 0.6 %; Eosinophils # 0.2 10^3/uL (0.0-0.8); Eosinophils % 1.4 %; Hematocrit 28.7 % (37-53); Lymphocytes # 0.9 10^3/uL (0.8-4.8); Lymphocytes % 8.9 %; Mean Corpuscular Hemoglobin 30.8 pg (27-33); Mean Corpuscular Volume 99.3 fl (82-101); Mean Platelet Volume 9.7 fL (7.4-10.4); Monocytes # 0.5 10^3/uL (0.2-0.9); Monocytes % 4.7 %; Neutrophils # 8.83 10^3/uL (1.8-7.7); Neutrophils % 83.8 %; Nucleated Red Blood Cells % 0 %; Platelet Count 658 10^3/cmm (157-399); Red Blood Count 2.89 10^6/uL (3.85-5.65); Red Cell Distribution Width 15.9 % (12.1-15.1); White Blood Count 10.53 10^3/uL (3.29-11.43)
[2023-04-23 05:45] LABS: Anion Gap 17.6 (5-19); Blood Urea Nitrogen 5 mg/dL (6-20); Calcium 8.8 mg/dL (8.5-10.5); Carbon Dioxide 23 mmol/L (22-29); Chloride 103 mmol/L (98-107); Glomerular Filtration Rate 588.1 mL/min (90-130); Glucose 92 mg/dL (65-115); Osmolality Calculated 287 mOsm/kg (285-295); Potassium 3.6 mmol/L (3.5-5.1); Sodium 140 mmol/L (136-145)
[2023-04-23] MEDS: sertraline 100 mg Tablet 50 MG PO (06:11)
[2023-04-23] MEDS: levothyroxine 75 mcg Tablet PO (06:11)
[2023-04-23] MEDS: metoprolol tartrate 25 mg Tablet 50 MG PO ×3 (06:11→22:13)
--- NOTE | 2023-04-23 06:51 | PM.PN ---
Subjective Subjective: Electrolytes improved Sinus tachycardia we will request another EKG Patient is afebrile Currently on room air Poor p.o. intake Vitals/I&O/Wt Last Vital Signs Temp 98.4 F 04/23/23 04:18 Pulse 123 H 04/23/23 05:35 Resp 17 04/23/23 04:18 BP 133/89 04/23/23 04:18 Pulse Ox 97 04/23/23 04:18 O2 Del Method Room Air 04/23/23 04:18 O2 Flow Rate 5 04/20/23 20:00 04/22/23 04/22/23 04/23/23 14:59 22:59 06:59 Intake Total 162 / 162 287.883 / 449.883 955 / 1404.883 Output Total 150 / 150 400 / 550 Balance 162 / 162 137.883 / 299.883 555 / 854.883 Weight last 48 hrs Weight 61.944 kg Weight 61.643 kg Physical Exam Narrative: Sinus tachycardia Hemodynamically stable Currently on room air Abdomen soft Winslow catheter in place Able to answer simple questions Nonfocal neuro exam Intellectually challenged, Urinary Catheter Management: Winslow: Cath Placed During This Visit: yes Reason for Continuing Indwelling Catheter: Other Urinary Catheter Date of Insertion: 04/06/23 Urinary Catheter Time of Insertion: 20:36 Data 04/23/23 05:15 04/23/23 05:15 Micro: Microbiology 04/21/23 08:46 Urine Culture - Preliminary Urine,Clean Catch Yeast species A&P Assessment and plan (1) Intractable epilepsy: (2) Encephalopathy acute: (3) C. difficile colitis: (4) Difficulty swallowing: (5) Pancolitis: (6) Protein-energy malnutrition: (7) Coffee ground emesis: (8) Pneumonia: (9) Hypomagnesemia: (10) Sepsis: (11) Generalized anxiety disorder: Plan Persistent sinus tachycardia Despite being on metoprolol I will request another EKG Patient did not respond very well to IV fluid hydration Patient has poor p.o. intake Does have clinical signs of dehydration No signs of PE Venous Doppler is pending Afebrile Currently on room air Electrolytes replenished Awaiting court date mother is applying for guardianship Plan is to send him to a nursing facility C. difficile colitis: Monitor bowel movement continue p.o. vancomycin, Full code DVT prophylaxis added Hemoglobin change noted today Attestations Medical Necessity Statement*: Continue medical management Diagnoses Intractable epilepsy G40.919 Encephalopathy acute G93.40 C. difficile colitis A04.72 Difficulty swallowing R13.10 Pancolitis K51.00 Protein-energy malnutrition E46 Coffee ground emesis K92.0 Pneumonia J18.9 Hypomagnesemia E83.42 Sepsis A41.9 Generalized anxiety disorder F41.1
--- NOTE | 2023-04-23 10:33 | ECG_ITS ---
[facility] Test Date: 2023-04-23 Pat Name: Hussein Man Department: Room: 260 Gender: Male Manager Book: : 2000 Requested By: Lindsay Avalos Order Number: [id number] Elver MD: Cachorro Mariee M.D. Measurements Intervals [place] Rate: 114 P: 49 CA: 174 QRS: 64 QRSD: 76 T: 58 QT: 310 QTc: 427 Interpretive Statements SINUS TACHYCARDIA ABNORMAL RHYTHM ECG Compared to ECG 04/21/2023 16:00:04 ST (T wave) deviation no longer present Electronically Signed On 04-23-2023 15:12:30 MILL SET UP by Cachorro Mariee M.D. [id number]
[2023-04-23] MEDS: lacosamide 100 MG in sodium chloride 0.9% 50 ML 120 MG IV ×2 (10:38→22:13)
[2023-04-23] MEDS: terbinafine 1% Cream 15 gm 1 APPLIC TOPICAL ×2 (10:38→18:56)
[2023-04-23] MEDS: diphenhydrAMINE 50 mg/mL SDV 1mL 12.5 MG IVP (11:14)
[2023-04-23] MEDS: dexamethasone 4 mg/mL INJ IVP (11:16)
[2023-04-23] MEDS: pantoprazole 40 mg SDV IVP ×2 (11:20→23:28)
[2023-04-23] MEDS: sodium chloride 0.9% 1,000 ML 100 ML IV ×2 (14:01→23:28)
[2023-04-23] MEDS: vancomycin 100 mg/1 mL Oral Syringe 125 MG PO ×3 (14:10→22:13)
--- NOTE | 2023-04-23 15:00 | PC.NURSE ---
Pt kept removing telemetry and stated he did not want to have it on.
[2023-04-23] MEDS: metroNIDAZOLE 500 MG Tablet PO ×2 (16:24→22:13)
[2023-04-24] VITALS (31 sets, daily range): BP systolic 109–133; BP diastolic 61–80; PULSE 29–132; RESP 12–25; TEMP 36.3–37.1; O2SAT 97–99; BMI 24.3
[2023-04-24] MEDS: heparin 5,000 unit/mL INJ 1 mL 5000 UNIT SUBCUT ×2 (03:25→15:41)
[2023-04-24] MEDS: levothyroxine 75 mcg Tablet PO (06:06)
[2023-04-24] MEDS: metoprolol tartrate 25 mg Tablet 50 MG PO ×3 (06:06→21:53)
[2023-04-24] MEDS: sertraline 100 mg Tablet 50 MG PO (06:06)
[2023-04-24] MEDS: multivitamin therapeutic Tablet 1 TAB PO (08:40)
[2023-04-24] MEDS: potassium chloride ER 20 mEq Tablet 40 MEQ PO (08:40)
[2023-04-24] MEDS: metroNIDAZOLE 500 MG Tablet PO ×3 (08:40→21:07)
[2023-04-24] MEDS: lacosamide 100 MG in sodium chloride 0.9% 50 ML 120 MG IV ×2 (09:33→20:31)
[2023-04-24] MEDS: terbinafine 1% Cream 15 gm 1 APPLIC TOPICAL (09:36)
[2023-04-24] MEDS: vancomycin 100 mg/1 mL Oral Syringe 125 MG PO ×4 (09:36→21:12)
[2023-04-24] MEDS: sodium chloride 0.9% 1,000 ML 100 ML IV ×2 (09:37→21:52)
--- NOTE | 2023-04-24 10:12 | P.PN_ITS ---
Subjective Subjective: Patient only eating 20% of his meals His rash has not improved significantly Afebrile Tachycardia slightly better Continue IV fluids 1 bowel movement since yesterday Vitals/I&O/Wt Last Vital Signs Temp 97.8 F 04/24/23 07:30 Pulse 109 H 04/24/23 08:00 Resp 16 04/24/23 08:00 BP 133/80 04/24/23 07:30 Pulse Ox 97 04/24/23 08:00 O2 Del Method Room Air 04/24/23 08:00 O2 Flow Rate 5 04/20/23 20:00 04/23/23 04/24/23 04/24/23 22:59 06:59 14:59 Intake Total 52 / 1264 1005 / 2269 1112 / 1112 Output Total 800 / 800 350 / 1150 Balance -748 / 464 655 / 1119 1112 / 1112 Weight last 48 hrs Weight 62.171 kg Weight 61.944 kg Physical Exam Narrative: Allergic rash slightly better but still present Sinus rhythm tachycardia Blood pressure stable Signs of dehydration present Currently on room air No new focal deficit Abdomen soft Urinary Catheter Management: Winslow: Cath Placed During This Visit: yes Reason for Continuing Indwelling Catheter: Chronic Indwelling Urinary Catheter on Admission Urinary Catheter Date of Insertion: 04/06/23 Urinary Catheter Time of Insertion: 20:36 Data 04/23/23 05:15 04/23/23 05:15 Micro: Microbiology 04/21/23 08:46 Urine Culture - Preliminary Urine,Clean Catch Yeast species A&P Assessment and plan (1) Intractable epilepsy: (2) Encephalopathy acute: (3) C. difficile colitis: (4) Difficulty swallowing: (5) Pancolitis: (6) Protein-energy malnutrition: Plan Patient is tachycardic secondary to poor p.o. intake he is only eating 20% of meals 1 bowel movement since yesterday I will continue IV fluids Sinus tachycardia has improved with improvement of rate of IV fluids 200 mill per hour Patient to finish 10 days of p.o. vancomycin, I have added p.o. metronidazole as well A[place] [facility] Mother has applied for guardianship 48 hours ago Full code DVT prophylaxis added Continue IV epileptics Attestations Medical Necessity Statement*: Continue medical management Coding Level of Care Code 48348 Straight Forward/Low MDM includes number and complexity of problems actively addressed during encounter, amount and/or complexity of data reviewed/ordered and described risk of complication, morbidity or mortality of management as doc umented Diagnoses Intractable epilepsy G40.919 Encephalopathy acute G93.40 C. difficile colitis A04.72 Difficulty swallowing R13.10 Pancolitis K51.00 Protein-energy malnutrition E46
[2023-04-24] MEDS: pantoprazole 40 mg SDV IVP (13:22)
[2023-04-25] VITALS (9 sets, daily range): BP systolic 105–141; BP diastolic 61–94; PULSE 112–135; RESP 16–19; TEMP 36.4–37.4; O2SAT 93–97
[2023-04-25] MEDS: pantoprazole 40 mg SDV IVP (00:44)
[2023-04-25] MEDS: heparin 5,000 unit/mL INJ 1 mL 5000 UNIT SUBCUT ×2 (02:22→13:31)
[2023-04-25 05:13] LABS: Basophils # 0.1 10^3/uL (0.0-0.1); Basophils % 0.7 %; Eosinophils # 0.2 10^3/uL (0.0-0.8); Eosinophils % 1.7 %; Hematocrit 28.8 % (37-53); Lymphocytes % 9.9 %; Mean Corpuscular HGB Conc 30.2 g/dL (30-55); Mean Corpuscular Hemoglobin 30.1 pg (27-33); Mean Corpuscular Volume 99.7 fl (82-101); Monocytes # 0.5 10^3/uL (0.2-0.9); Monocytes % 5.2 %; Neutrophils # 8.41 10^3/uL (1.8-7.7); Neutrophils % 81.9 %; Nucleated Red Blood Cells % 0 %; Platelet Count 627 10^3/cmm (157-399); Red Blood Count 2.89 10^6/uL (3.85-5.65); Red Cell Distribution Width 16.4 % (12.1-15.1); White Blood Count 10.25 10^3/uL (3.29-11.43)
[2023-04-25 05:31] LABS: Anion Gap 23.9 (5-19); Carbon Dioxide 18 mmol/L (22-29); Chloride 101 mmol/L (98-107); Glomerular Filtration Rate 368.3 mL/min (90-130); Glucose 69 mg/dL (65-115); Sodium 140 mmol/L (136-145)
[2023-04-25 05:47] LABS: Blood Urea Nitrogen 1 mg/dL (6-20); Osmolality Calculated 284 mOsm/kg (285-295); Potassium 2.9 mmol/L (3.5-5.1)
[2023-04-25] MEDS: potassium chloride ER 20 mEq Tablet 40 MEQ PO (06:05)
[2023-04-25] MEDS: sertraline 100 mg Tablet 50 MG PO (06:07)
[2023-04-25] MEDS: levothyroxine 75 mcg Tablet PO (06:07)
[2023-04-25] MEDS: metoprolol tartrate 25 mg Tablet 50 MG PO ×3 (06:07→21:54)
[2023-04-25] MEDS: lacosamide 100 MG in sodium chloride 0.9% 50 ML 120 MG IV ×2 (10:01→21:54)
[2023-04-25] MEDS: terbinafine 1% Cream 15 gm 1 APPLIC TOPICAL (10:02)
[2023-04-25] MEDS: sodium chloride 0.9% 1,000 ML 100 ML IV ×2 (10:22→20:10)
--- NOTE | 2023-04-25 10:34 | PM.PN ---
Subjective Subjective: Patient was sleepy when I entered the room Patient woke up with physical touch on the sternum Potassium repleted this morning PPN to be started Tachycardia Patient is only eating 15 to 20% of his meals Vitals/I&O/Wt Last Vital Signs Temp 97.9 F 04/25/23 07:21 Pulse 119 H 04/25/23 08:00 Resp 18 04/25/23 08:00 BP 118/84 04/25/23 07:21 Pulse Ox 94 04/25/23 08:00 O2 Del Method Room Air 04/25/23 08:00 O2 Flow Rate 5 04/20/23 20:00 04/24/23 04/25/23 04/25/23 22:59 06:59 14:59 Intake Total 1172 / 2344 1120 / 1120 Output Total 1650 / 1650 550 / 2200 Balance -478 / 694 -550 / 144 1120 / 1120 Weight last 48 hrs Weight 61.008 kg Weight 62.171 kg Physical Exam Narrative: Abdomen soft Awake and alert GCS 15 No new focal deficit Cognitive impairment Full voice Abdomen is soft Winslow catheter in place Clinical signs of dehydration S1, S2 tachycardia Currently on room air Urinary Catheter Management: Winslow: Cath Placed During This Visit: yes Reason for Continuing Indwelling Catheter: Other Urinary Catheter Date of Insertion: 04/06/23 Urinary Catheter Time of Insertion: 20:36 Data 04/25/23 04:43 04/25/23 04:43 A&P Assessment and plan (1) Intractable epilepsy: (2) Encephalopathy acute: (3) Difficulty swallowing: (4) Pancolitis: (5) C. difficile colitis: (6) Protein-energy malnutrition: (7) Coffee ground emesis: (8) Pneumonia: (9) Hypomagnesemia: (10) Sepsis: (11) Sinus tachycardia: (12) Dehydration: Plan Severe hypokalemia: Repleted Patient to finish 10 days of p.o. vancomycin and metronidazole Severe dehydration start PPN Appreciate dietary recommendations Patient is still tachycardic Only eating 15 to 20% of his meals Afebrile Continue antiepileptics IV Full code DVT prophylaxis on board Attestations Medical Necessity Statement*: Awaiting placement Diagnoses Intractable epilepsy G40.919 Encephalopathy acute G93.40 Difficulty swallowing R13.10 Pancolitis K51.00 C. difficile colitis A04.72 Protein-energy malnutrition E46 Coffee ground emesis K92.0 Pneumonia J18.9 Hypomagnesemia E83.42 Sepsis A41.9 Sinus tachycardia R00.0 Dehydration E86.0
[2023-04-25] MEDS: lidocaine 1% 5 ML in potassium chloride premix 100 ML 26.25 ML IV ×2 (10:51→15:02)
[2023-04-25] MEDS: multivitamin therapeutic Tablet 1 TAB PO (12:05)
[2023-04-25] MEDS: metroNIDAZOLE 500 MG Tablet PO ×3 (12:05→20:15)
[2023-04-25] MEDS: vancomycin 100 mg/1 mL Oral Syringe 125 MG PO ×4 (12:06→20:16)
[2023-04-25] MEDS: AA-Dex 4.25%-5% w/Lytes 1,000 ML 23 ML IV (16:11)
--- NOTE | 2023-04-25 16:29 | PC.NURSE ---
1x1 cm skin tear left inner heal/ankle just below the ankle bone. Optifoam applied.
[2023-04-26] VITALS (7 sets, daily range): BP systolic 116–131; BP diastolic 69–88; PULSE 114–136; RESP 15–20; TEMP 36.5–36.8; O2SAT 92–96
[2023-04-26] MEDS: heparin 5,000 unit/mL INJ 1 mL 5000 UNIT SUBCUT ×2 (02:48→14:24)
[2023-04-26 04:52] LABS: Phosphorus 3.4 mg/dL (2.5-4.5)
[2023-04-26 05:06] LABS: Alanine Aminotransferase 17 U/L (0-41); Albumin Level 3.3 g/dL (3.5-5.2); Alkaline Phosphatase 113 U/L (40-130); Anion Gap 23.9 (5-19); Aspartate Amino Transferase 15 U/L (0-40); Calcium 9.2 mg/dL (8.5-10.5); Carbon Dioxide 21 mmol/L (22-29); Chloride 100 mmol/L (98-107); Globulin 2.6 g/dL (1.3-4.6); Glomerular Filtration Rate 368.3 mL/min (90-130); Glucose 88 mg/dL (65-115); Potassium 3.9 mmol/L (3.5-5.1); Sodium 141 mmol/L (136-145); Total Bilirubin 0.2 mg/dL (0.15-1.2); Total Protein 5.9 g/dL (6.6-8.7)
[2023-04-26 05:07] LABS: Blood Urea Nitrogen 1 mg/dL (6-20); Osmolality Calculated 287 mOsm/kg (285-295)
[2023-04-26] MEDS: sodium chloride 0.9% 1,000 ML 100 ML IV ×2 (05:58→16:23)
[2023-04-26] MEDS: metoprolol tartrate 25 mg Tablet 50 MG PO ×3 (05:59→22:15)
[2023-04-26] MEDS: sertraline 100 mg Tablet 50 MG PO (05:59)
[2023-04-26] MEDS: levothyroxine 75 mcg Tablet PO (05:59)
[2023-04-26] MEDS: diphenhydrAMINE 12.5 mg/5 mL UDC 10 mL PO (06:39)
--- NOTE | 2023-04-26 08:24 | PM.PN ---
Subjective Subjective: Patient has been started on TPN along IV fluids Sinus tachycardia has not improved patient has been refusing most of his oral medications Potassium 3.9 today Magnesium 1.0 extremely low we will give 2 g Phosphorus normal Vitals/I&O/Wt Last Vital Signs Temp 97.7 F 04/26/23 07:37 Pulse 115 H 04/26/23 07:37 Resp 17 04/26/23 07:37 BP 123/88 04/26/23 07:37 Pulse Ox 92 04/26/23 07:37 O2 Del Method Room Air 04/26/23 07:37 O2 Flow Rate 5 04/20/23 20:00 04/25/23 04/26/23 04/26/23 22:59 06:59 14:59 Intake Total 1197 / 2774 1161.7 / 3935.7 Output Total 1300 / 1300 800 / 2100 Balance -103 / 1474 361.7 / 1835.7 Weight last 48 hrs Weight 64.977 kg Weight 61.008 kg Physical Exam Narrative: Patient laying supine Was sleeping when I entered the room however woke up with verbal command Abdomen soft Signs of dehydration present Patient made eye contact Then went back to sleep Currently on room air SCDs on S1, S2 tachycardia Urinary Catheter Management: Winslow: Cath Placed During This Visit: yes Reason for Continuing Indwelling Catheter: Other Urinary Catheter Date of Insertion: 04/06/23 Urinary Catheter Time of Insertion: 20:36 Data 04/25/23 04:43 04/26/23 03:37 Micro: Microbiology 04/21/23 08:46 Urine Culture - Final Urine,Clean Catch Jessika albicans A&P Assessment and plan (1) Dehydration: (2) Sinus tachycardia: (3) Intractable epilepsy: (4) Encephalopathy acute: (5) C. difficile colitis: (6) Difficulty swallowing: (7) Pancolitis: (8) Protein-energy malnutrition: (9) Hypomagnesemia: (10) Hypokalemia: Plan I will give 2 g of magnesium and 40 mEq IV potassium Continue TPN and IV fluids Patient has been refusing metoprolol CTA rule out PE Will reorder venous Doppler Appreciate dietary recommendations Continue antiepileptics Awaiting court date, patient will go to residential once mother gets guardianship Attestations Medical Necessity Statement*: Awaiting placement Diagnoses Dehydration E86.0 Sinus tachycardia R00.0 Intractable epilepsy G40.919 Encephalopathy acute G93.40 C. difficile colitis A04.72 Difficulty swallowing R13.10 Pancolitis K51.00 Protein-energy malnutrition E46 Hypomagnesemia E83.42 Hypokalemia E87.6
--- NOTE | 2023-04-26 08:26 | USR_ITS ---
PROCEDURE INFORMATION: Exam: US Duplex Lower Extremity Veins, Bilateral Exam date and time: 04/26/2023 10:53 AM Age: 22 years old Clinical indication: Swelling (edema) of limb; Lower extremity, bilateral; Additional info: Tachycardia, leg swelling TECHNIQUE: Imaging protocol: Real-time duplex ultrasound of the bilateral extremities with 2-D sanchez scale, color Doppler flow and spectral waveform analysis including responses to compression and other maneuvers (when performed) with image documentation. Complete exam focused on the lower extremity veins. COMPARISON: No relevant prior studies available. FINDINGS: Right deep veins: Unremarkable. The common femoral, femoral, proximal profunda femoral and popliteal veins are patent without thrombus. Normal Doppler waveforms. Normal compressibility and/or augmentation response. Interrogated peroneal and posterior tibial veins are patent. Left deep veins: Unremarkable. The common femoral, femoral, proximal profunda femoral and popliteal veins are patent without thrombus. Normal Doppler waveforms. Normal compressibility and/or augmentation response. Interrogated peroneal and posterior tibial veins are patent. Superficial veins: Bilateral saphenofemoral junctions are patent without thrombus. Soft tissues: Unremarkable. US/[place] [id number] IMPRESSION: No evidence of deep vein thrombosis.
[2023-04-26] MEDS: vancomycin 100 mg/1 mL Oral Syringe 125 MG PO (09:25)
[2023-04-26] MEDS: multivitamin therapeutic Tablet 1 TAB PO (09:25)
[2023-04-26] MEDS: metroNIDAZOLE 500 MG Tablet PO (09:25)
[2023-04-26] MEDS: lacosamide 100 MG in sodium chloride 0.9% 50 ML 120 MG IV ×2 (09:25→22:14)
[2023-04-26] MEDS: lidocaine 1% 5 ML in potassium chloride premix 100 ML 25 ML IV (09:34)
[2023-04-26] MEDS: magnesium sulfate premix 2 GM/50 ML PIGGYBACK IV (09:41)
[2023-04-26] MEDS: diphenhydrAMINE 50 mg/mL SDV 1mL 25 MG IVP (10:37)
[2023-04-26] MEDS: AA-Dex 4.25%-5% w/Lytes 1,000 ML 83 ML IV (16:03)
[2023-04-26] MEDS: dexamethasone 10 mg/mL INJ IVP (17:28)
[2023-04-27] VITALS (9 sets, daily range): BP systolic 101–125; BP diastolic 65–87; PULSE 59–129; RESP 15–19; TEMP 36.7–37.7; O2SAT 92–96
[2023-04-27] MEDS: sodium chloride 0.9% 1,000 ML 100 ML IV ×2 (03:10→13:11)
[2023-04-27] MEDS: heparin 5,000 unit/mL INJ 1 mL 5000 UNIT SUBCUT ×2 (03:10→14:06)
[2023-04-27] MEDS: AA-Dex 4.25%-5% w/Lytes 1,000 ML 83 ML IV ×2 (03:25→16:04)
[2023-04-27] MEDS: sertraline 100 mg Tablet 50 MG PO (05:32)
[2023-04-27] MEDS: levothyroxine 75 mcg Tablet PO (05:32)
[2023-04-27] MEDS: metoprolol tartrate 25 mg Tablet 50 MG PO ×3 (05:33→22:02)
[2023-04-27 06:37] LABS: Blood Urea Nitrogen 6 mg/dL (6-20); Calcium 8.7 mg/dL (8.5-10.5); Carbon Dioxide 23 mmol/L (22-29); Chloride 104 mmol/L (98-107); Glomerular Filtration Rate 588.1 mL/min (90-130); Glucose 122 mg/dL (65-115); Magnesium 1.6 mg/dL (1.7-2.3); Osmolality Calculated 291 mOsm/kg (285-295); Sodium 141 mmol/L (136-145)
[2023-04-27] MEDS: multivitamin therapeutic Tablet 1 TAB PO (09:56)
[2023-04-27] MEDS: lacosamide 100 MG in sodium chloride 0.9% 50 ML 120 MG IV ×2 (09:57→21:58)
--- NOTE | 2023-04-27 10:36 | PM.PN ---
Subjective Subjective: Skin rash has improved I will give another dose of Decadron Seizure treatment finished discontinue metronidazole and vancomycin Patient can also have p.o. diet Despite TPN TPN was used to just supplement his poor p.o. intake Tachycardia improving Magnesium replenished Vitals/I&O/Wt Last Vital Signs Temp 98.5 F 04/27/23 07:25 Pulse 59 L 04/27/23 07:25 Resp 17 04/27/23 07:25 BP 122/82 04/27/23 07:25 Pulse Ox 96 04/27/23 07:58 O2 Del Method Room Air 04/27/23 07:58 O2 Flow Rate 5 04/20/23 20:00 04/26/23 04/27/23 04/27/23 22:59 06:59 14:59 Intake Total 2143.567 / 2305.567 2423.433 / 4729.000 Output Total 750 / 750 3300 / 4050 Balance 1393.567 / 1555.567 -876.567 / 679.000 Weight last 48 hrs Weight 61.552 kg Weight 64.977 kg Physical Exam Narrative: Laying supine Rash improving GCS 15 Currently on room air No new focal acid Winslow catheter in place S1, S2 sinus tachycardia Urinary Catheter Management: Winslow: Cath Placed During This Visit: yes Reason for Continuing Indwelling Catheter: Other Urinary Catheter Date of Insertion: 04/06/23 Urinary Catheter Time of Insertion: 20:36 Data 04/25/23 04:43 04/27/23 05:42 A&P Assessment and plan (1) Hypokalemia: (2) Dehydration: (3) Sinus tachycardia: (4) Intractable epilepsy: (5) Encephalopathy acute: (6) C. difficile colitis: (7) Difficulty swallowing: (8) Pancolitis: (9) Protein-energy malnutrition: (10) Coffee ground emesis: (11) Sepsis: Plan Continue TPN We will check magnesium phosphorus triglyceride and CMP tomorrow Replenish magnesium Sinus tachycardia has not improved significantly We will give 1 dose of metoprolol IV Patient has been refusing p.o. medications Awaiting guardianship documentation and court date from mother We will touch with telephonic case manager on Friday I will give another dose of Decadron for skin rash I do believe patient has developed rash to one of the antiepileptics His antiepileptics will need to be changed to p.o. regimen at the time of discharge I will continue IV as patient is not taking any p.o. at this point Sinus tachycardia no signs of PE or DVT Attestations Medical Necessity Statement*: Continue medical management Diagnoses Hypokalemia E87.6 Dehydration E86.0 Sinus tachycardia R00.0 Intractable epilepsy G40.919 Encephalopathy acute G93.40 C. difficile colitis A04.72 Difficulty swallowing R13.10 Pancolitis K51.00 Protein-energy malnutrition E46 Coffee ground emesis K92.0 Sepsis A41.9
[2023-04-27] MEDS: dilTIAZem 5 mg/mL SDV 5 mL IVP (10:52)
[2023-04-27] MEDS: dexamethasone 10 mg/mL INJ IVP (10:52)
[2023-04-27] MEDS: magnesium sulfate premix 1 GM/100 ML PIGGYBACK IV (10:52)
--- NOTE | 2023-04-27 22:17 | PC.NURSE ---
This nurse gave patient 50 po metoprolol in two tablets and patient only took one and spit the other pill out and refused to take it.
[2023-04-28] VITALS (7 sets, daily range): BP systolic 111–129; BP diastolic 68–91; PULSE 108–137; RESP 14–20; TEMP 36.6–37.7; O2SAT 91–95
[2023-04-28] MEDS: sodium chloride 0.9% 1,000 ML 100 ML IV ×3 (00:02→20:03)
[2023-04-28] MEDS: heparin 5,000 unit/mL INJ 1 mL 5000 UNIT SUBCUT (03:19)
[2023-04-28 03:46] LABS: Triglycerides 280 mg/dL (0-150)
[2023-04-28 03:53] LABS: Alanine Aminotransferase 16 U/L (0-41); Alkaline Phosphatase 86 U/L (40-130); Aspartate Amino Transferase 32 U/L (0-40); Blood Urea Nitrogen 8 mg/dL (6-20); Calcium 8.7 mg/dL (8.5-10.5); Carbon Dioxide 23 mmol/L (22-29); Chloride 103 mmol/L (98-107); Globulin 2.4 g/dL (1.3-4.6); Glomerular Filtration Rate 204.3 mL/min (90-130); Glucose 107 mg/dL (65-115); Magnesium 1.6 mg/dL (1.7-2.3); Osmolality Calculated 285 mOsm/kg (285-295); Phosphorus 3.4 mg/dL (2.5-4.5); Sodium 138 mmol/L (136-145); Total Bilirubin 0.2 mg/dL (0.15-1.2); Total Protein 5.4 g/dL (6.6-8.7)
[2023-04-28 03:58] LABS: Anion Gap 16.2 (5-19); Potassium 4.2 mmol/L (3.5-5.1)
[2023-04-28] MEDS: AA-Dex 4.25%-5% w/Lytes 1,000 ML 83 ML IV ×2 (04:49→17:49)
--- NOTE | 2023-04-28 05:24 | PC.NURSE ---
A the beginning of the shift patient had a rash on his torso with small red bumps, and peeling skin all over body, This am the red bumps on torso are not present but skin is peeling.
[2023-04-28] MEDS: sertraline 100 mg Tablet 50 MG PO (06:10)
[2023-04-28] MEDS: levothyroxine 75 mcg Tablet PO (06:10)
[2023-04-28] MEDS: metoprolol tartrate 25 mg Tablet 50 MG PO ×2 (06:10→22:30)
[2023-04-28] MEDS: lacosamide 100 MG in sodium chloride 0.9% 50 ML 120 MG IV ×2 (09:41→21:52)
[2023-04-28] MEDS: multivitamin therapeutic Tablet 1 TAB PO (09:41)
--- NOTE | 2023-04-28 15:37 | P.PN_ITS ---
Subjective Subjective: seen today no acute events Vitals/I&O/Wt Last Vital Signs Temp 98.6 F 04/28/23 11:44 Pulse 108 H 04/28/23 11:44 Resp 15 04/28/23 11:44 BP 119/68 04/28/23 11:44 Pulse Ox 93 04/28/23 11:44 O2 Del Method Room Air 04/28/23 11:44 O2 Flow Rate 5 04/20/23 20:00 04/28/23 04/28/23 04/28/23 06:59 14:59 22:59 Intake Total 2240 / 4504 1078.667 / 1078.667 Output Total 2500 / 2500 1600 / 1600 Balance -260 / 2004 -521.333 / -521.333 Weight last 48 hrs Weight 63.673 kg Weight 61.552 kg Physical Exam Narrative: Laying supine Rash improving GCS 15 Currently on room air No new focal acid Winslow catheter in place S1, S2 sinus tachycardia Urinary Catheter Management: Winslow: Cath Placed During This Visit: yes Reason for Continuing Indwelling Catheter: Other Urinary Catheter Date of Insertion: 04/06/23 Urinary Catheter Time of Insertion: 20:36 Data 04/25/23 04:43 04/28/23 02:57 A&P Assessment and plan (1) Hypokalemia: (2) Dehydration: (3) Sinus tachycardia: (4) Intractable epilepsy: (5) Encephalopathy acute: (6) C. difficile colitis: (7) Difficulty swallowing: (8) Pancolitis: (9) Protein-energy malnutrition: (10) Coffee ground emesis: (11) Sepsis: Plan Continue TPN We will check magnesium phosphorus triglyceride and CMP tomorrow Replenish magnesium Patient has been refusing p.o. medications Awaiting guardianship documentation and court date from mother We will touch with case packer and sealer on Friday I do believe patient has developed rash to one of the antiepileptics His antiepileptics will need to be changed to p.o. regimen at the time of discharge I will continue IV as patient is not taking any p.o. at this point Sinus tachycardia no signs of PE or DVT Attestations Medical Necessity Statement*: Continue medical management Diagnoses Hypokalemia E87.6 Dehydration E86.0 Sinus tachycardia R00.0 Intractable epilepsy G40.919 Encephalopathy acute G93.40 C. difficile colitis A04.72 Difficulty swallowing R13.10 Pancolitis K51.00 Protein-energy malnutrition E46 Coffee ground emesis K92.0 Sepsis A41.9
[2023-04-29] VITALS (33 sets, daily range): BP systolic 103–127; BP diastolic 59–88; PULSE 84–160; RESP 13–35; TEMP 36.8–38.1; O2SAT 89–97
[2023-04-29] MEDS: heparin 5,000 unit/mL INJ 1 mL 5000 UNIT SUBCUT ×2 (02:03→14:01)
--- NOTE | 2023-04-29 06:01 | XRR_ITS ---
PROCEDURE INFORMATION: Exam: XR Chest Exam date and time: 04/29/2023 7:12 AM Age: 22 years old Clinical indication: Other: Seizure, possible aspiration TECHNIQUE: Imaging protocol: Radiologic exam of the chest. Views: 1 view. COMPARISON: CR (CHEST, ) 04/21/2023 8:18 PM FINDINGS: Tubes, catheters and devices: Stable PICC line entering from the right and terminates near the atrial caval junction. Lungs: Persistent atelectasis or infiltrate in the left lower lobe. Pleural spaces: Unremarkable. No pleural effusion. No pneumothorax. Heart/Mediastinum: Unremarkable. No cardiomegaly. Bones/joints: Unremarkable. XR/XR chest 1V portable [id number] IMPRESSION: No significant change. Persistent atelectasis or consolidation the left lower lobe.
--- NOTE | 2023-04-29 06:07 | CTR_ITS ---
PROCEDURE INFORMATION: Exam: CT Head Without Contrast Exam date and time: 04/29/2023 6:32 AM Age: 22 years old Clinical indication: Other: Seizure; Additional info: Seizures TECHNIQUE: Imaging protocol: Computed tomography of the head without contrast. Radiation optimization: All CT scans at this facility use at least one of these dose optimization techniques: automated exposure control; mA and/or kV adjustment per patient size (includes targeted exams where dose is matched to clinical indication); or iterative reconstruction. REPORTING DATA: Count of CT and Cardiac NM exams in prior 12 months: This patient has received 9 known CTs and 0 known cardiac nuclear medicine studies in the 12 months prior to the current study. COMPARISON: MR angio head wo con [id number] 04/13/2023 11:00 AM RADIATION DOSE METRICS: Total DLP (mGy-cm): 996.49 FINDINGS: Brain: Normal. No hemorrhage. Unremarkable white matter. No mass effect. Cerebral ventricles: No ventriculomegaly. Paranasal sinuses: Visualized sinuses are unremarkable. No fluid levels. Mastoid air cells: Visualized mastoid air cells are well aerated. Bones/joints: Unremarkable. No acute fracture. Soft tissues: Unremarkable. CT/CT head wo con* [id number] IMPRESSION: No acute intracranial abnormality.
[2023-04-29] MEDS: dilTIAZem 5 mg/mL SDV 5 mL IVP (06:11)
[2023-04-29 06:19] LABS: D Dimer 0.72 ug/mLFEU (0-0.59)
[2023-04-29] MEDS: AA-Dex 4.25%-5% w/Lytes 1,000 ML 83 ML IV ×2 (06:20→16:59)
--- NOTE | 2023-04-29 06:35 | W.PM.EVENTAC ---
Event Notes Attestations Time Spent in Patient Care: Response to call for seizure Patient blood sugar was normal Hemodynamically stable sinus tachycardia around 140s Rapid response was called for seizure Which resolved spontaneously He is already on [address] head without contrast chest x-ray Patient opening eyes to verbal command Able to protect airways Currently on 3 L facemask Sinus tachycardia given Cardizem 5 mg IV push heart rate was around 145 Request D-dimer Continue TPN Continue IV antibiotics No fever Last bowel movement was loose stools last night No signs of DVT or PE
[2023-04-29 06:42] LABS: Anion Gap 20.6 (5-19); Blood Urea Nitrogen 9 mg/dL (6-20); Calcium 9.1 mg/dL (8.5-10.5); Carbon Dioxide 18 mmol/L (22-29); Chloride 101 mmol/L (98-107); Glomerular Filtration Rate 588.1 mL/min (90-130); Glucose 124 mg/dL (65-115); Magnesium 1.8 mg/dL (1.7-2.3); Osmolality Calculated 280 mOsm/kg (285-295); Potassium 4.6 mmol/L (3.5-5.1); Sodium 135 mmol/L (136-145)
--- NOTE | 2023-04-29 06:53 | PC.NURSE ---
Rapid Response [id number] 04/29/23 This nurse was in patient's room drawing am labs and patient began to have a seizure, the seizure lasted approximately 45 seconds. After seizure patient was unresponsive and agonal breathing. Spo2 was at 50% and heart rate was 140's. Temp and bp wnl. Patient was placed on 15L nonrebreather and spo2 came up to 95%. Rapid response called. Dr. Avalos came to patient's room and ordered 5mg cardizem ivp, chest x-ray, head ct, and d-dimer. Dr. Avalos also ordered 2mg ativan ivp prn to give if patient has another seizure. Patient was placed on 2L nc and spo2 staying at 95%. Patient was taken to ct scan and transported back to room. When back in patient's room patient was opening eyes spontaneously and stated his name.
[2023-04-29 07:03] LABS: Glucose Point of Care 135 mg/dL (70-110)
[2023-04-29] MEDS: lacosamide 100 MG in sodium chloride 0.9% 50 ML 120 MG IV (08:02)
[2023-04-29] MEDS: multivitamin therapeutic Tablet 1 TAB PO (08:04)
[2023-04-29] MEDS: metoprolol tartrate 25 mg Tablet PO (11:04)
[2023-04-29] MEDS: LORazepam 2 mg/mL INJ 1 mL IVP (11:54)
[2023-04-29 11:56] LABS: Glucose Point of Care 153 mg/dL (70-110)
--- NOTE | 2023-04-29 12:25 | PC.NURSE ---
This nurse entered patients room at around 1140 for rounds. This nurse was talking to patient and unhooking IV at same time. When attempting to leave patients room this nurse noticed that patient's eyes were rolling backwards and the patient began to shake. This nurse assisted patient to his side and called out for help. Help arrived almost instantly. Vital signs were obtained. Patient placed on oxygen for support. Vital signs all WNL. This nurse attempted to notify the provider 3 times with no success. During the time of trying to notify the provider the patient became sloan in color and developed severe agonal breathing. Patient now unresponsive. This nurse activated rapid response. Rapid response called at approximately 1151. PLOW AND BORING MACHINE TENDER responded quickly. Per Dr Zheng, patient is believed to be postictal now, no new orders at this time. Will continue to monitor patient. Patient is currently resting in bed on his side. Vital signs remain WNL. Patient on telemetry. Will continue to monitor patient frequently and update physician as needed and with any changes that occur.
--- NOTE | 2023-04-29 13:20 | PM.PN ---
Subjective Subjective: seen this am pt had a seizure that self resolved overnight this morning There was a rapid response called and patient had another seizure. He received 2 mg of Ativan. Vitals/I&O/Wt Last Vital Signs Temp 98.8 F 04/29/23 12:00 Pulse 137 H 04/29/23 12:00 Resp 16 04/29/23 09:55 BP 121/59 04/29/23 12:00 Pulse Ox 97 04/29/23 12:00 O2 Del Method Room Air 04/29/23 12:00 O2 Flow Rate 5 04/20/23 20:00 04/28/23 04/29/23 04/29/23 22:59 06:59 14:59 Intake Total 2352 / 3430.667 2000 / 5430.667 112 / 112 Output Total 1800 / 3400 1250 / 4650 Balance 552 / 30.667 750 / 780.667 112 / 112 Weight last 48 hrs Weight 65.862 kg Weight 63.673 kg Physical Exam Narrative: Laying supine Currently on room air No new focal deficits Winslow catheter in place S1, S2 sinus tachycardia Urinary Catheter Management: Winslow: Cath Placed During This Visit: yes Reason for Continuing Indwelling Catheter: Other Urinary Catheter Date of Insertion: 04/06/23 Urinary Catheter Time of Insertion: 20:36 Data 04/25/23 04:43 04/29/23 05:51 A&P Assessment and plan (1) Hypokalemia: (2) Dehydration: (3) Sinus tachycardia: (4) Intractable epilepsy: (5) Encephalopathy acute: (6) C. difficile colitis: (7) Difficulty swallowing: (8) Pancolitis: (9) Protein-energy malnutrition: (10) Coffee ground emesis: (11) Sepsis: Plan Continue TPN We will check magnesium phosphorus triglyceride and CMP tomorrow Replenish magnesium Patient has been refusing p.o. medications Awaiting guardianship documentation and court date from mother We will touch with comp field case manager on Friday I do believe patient has developed rash to one of the antiepileptics His antiepileptics will need to be changed to p.o. regimen at the time of discharge I will continue IV as patient is not taking any p.o. at this point Sinus tachycardia no signs of PE or DVT Breakthrough seizure Discussed with Dr. Amado, neurology. She has adjusted antiepileptic doses. Attestations Medical Necessity Statement*: Awaiting guardianship and placement Diagnoses Hypokalemia E87.6 Dehydration E86.0 Sinus tachycardia R00.0 Intractable epilepsy G40.919 Encephalopathy acute G93.40 C. difficile colitis A04.72 Difficulty swallowing R13.10 Pancolitis K51.00 Protein-energy malnutrition E46 Coffee ground emesis K92.0 Sepsis A41.9
[2023-04-29 15:47] LABS: Phenytoin Dilantin 1.1 ug/mL (10-20)
--- NOTE | 2023-04-29 16:38 | XRR_ITS ---
PROCEDURE INFORMATION: Exam: XR Chest Exam date and time: 04/29/2023 5:47 PM Age: 22 years old Clinical indication: Fever; Additional info: Possible aspiration pna TECHNIQUE: Imaging protocol: Radiologic exam of the chest. Views: 1 view. COMPARISON: CR (CHEST, ) 04/29/2023 7:12 AM FINDINGS: Tubes, catheters and devices: Right PICC line is stable in positioning. Lungs: Previously described left lower lobe opacity less conspicuous on current study. No new or worsening consolidations. Pleural spaces: Unremarkable. No pleural effusion. No pneumothorax. Heart/Mediastinum: Unremarkable. No cardiomegaly. Bones/joints: Unremarkable. XR/XR chest 1V portable [id number] IMPRESSION: No acute findings.
[2023-04-29 16:54] LABS: ABG PCO2 35.6 mmHg (35-45); ABG PH Result 7.51 (7.35-7.45); Alveolar-Arterial Oxygen Gradi 4.3 mmHg (5-10); Arterial Blood Gas Hematocrit 32.7 % (42-52); Blood Gas Operator Identificat AMH; Blood Gas Sample Site Brachial, left; Blood Gas Sample Type Arterial; Carboxyhemoglobin 1.3 %THgb (0.4-20.1); HCO3 ABG 28.2 mmol/L (22-26); HGB O2 Sat 94.1 % (95-100); Ionized Calcium Level - ABG 1.2 mmol/L (1.1-1.4); Methemoglobin 0.3 % (0.4-1.5); Oxygen Device ROOM AIR; Oxygen Saturation ABG 95.6; PO2 ABG 72.5 mmHg (80.0-100.0); PO2 FiO2 Ratio Arterial Blood 0; Potassium Level - ABG 4.2 mmol/L (3.5-5.0); Total Hemoglobin 10.7 g/dL (14-18)
[2023-04-29] MEDS: metoprolol tartrate 1 mg/1 mL SDV 5 mL 5 MG IVP (16:58)
--- NOTE | 2023-04-29 17:20 | PC.NURSE ---
patient arrived to ICU at 1716 from [place]
[2023-04-29 18:30] LABS: Glucose Point of Care 114 mg/dL (70-110)
[2023-04-29 18:30] LABS: Glucose Point of Care 109 mg/dL (70-110)
[2023-04-29] MEDS: lacosamide 200 MG in sodium chloride 0.9% 50 ML 120 MG IV (18:46)
[2023-04-29 19:48] LABS: Glucose Point of Care 120 mg/dL (70-110)
--- NOTE | 2023-04-29 19:56 | ECG_ITS ---
[facility] Test Date: 2023-04-29 Pat Name: Hussein Man Department: Room: ICU10 Gender: Male Health Associate: : 2000 Requested By: Lindsay Avalos Order Number: [id number] Elver MD: Miriam Marcus M.D. Measurements Intervals Jensen Rate: 151 P: 23 RI: 127 QRS: 52 QRSD: 71 T: 52 QT: 261 QTc: 414 Interpretive Statements SINUS TACHYCARDIA with heart rate 151 bpm No other abnormality noted Compared to ECG 04/23/2023 10:33:58 Heart rate increased Electronically Signed On 05-01-2023 13:28:44 VIDEO ENGINEER by Miriam Marcus M.D. [email or web address] [email or web address] memorial [email or web address]/OM/[id number]
--- NOTE | 2023-04-29 20:01 | PC.NURSE ---
Increased HR: Called Dr. Avalos @1952 to notify of a HR of 160. New order for EKG NOW and Lanatolol 10mg IVP NOW. EKG results sent via VOLT.
[2023-04-29] MEDS: labetalol 5 mg/mL SDV 20mL 10 MG IVP (20:25)
[2023-04-29] MEDS: piperacillin-tazobactam 3.375 GM in sodium chloride 0.9% (plus) 50 ML IV (20:25)
[2023-04-29 21:11] LABS: Procalcitonin 0.07 ng/mL (0-0.5)
[2023-04-29] MEDS: metoprolol tartrate 25 mg Tablet 50 MG PO (22:50)
[2023-04-29 22:54] LABS: Adenovirus Not Detected (NOT DETECT); Chlamydia Pneumoniae Not Detected (NOT DETECT); Coronavirus 229E,HKU1,NL63,OC4 Not Detected (NOT DETECT); Human Metapneumovirus Not Detected (NOT DETECT); Human Rhinovirus/Enterovirus Not Detected (NOT DETECT); Influenza A Not Detected (NOT DETECT); Influenza A H1 Not Detected (NOT DETECT); Influenza A H1-2009 Not Detected (NOT DETECT); Influenza A H3 Not Detected (NOT DETECT); Influenza B Not Detected (NOT DETECT); Mycoplasma Pneumoniae Not Detected (NOT DETECT); Parainfluenza Virus Type 1 Not Detected (NOT DETECT); Parainfluenza Virus Type 2 Not Detected (NOT DETECT); Parainfluenza Virus Type 3 Not Detected (NOT DETECT); Parainfluenza Virus Type 4 Not Detected (NOT DETECT); Respiratory Syncytial Virus A Not Detected (NOT DETECT); Respiratory Syncytial Virus B Not Detected (NOT DETECT); SARS-COV-2 Not Detected (NOT DETECT)
[2023-04-30] VITALS (32 sets, daily range): BP systolic 93–146; BP diastolic 70–106; PULSE 84–155; RESP 15–23; TEMP 36.9–37.3; O2SAT 88–98
[2023-04-30 01:05] LABS: Glucose Point of Care 117 mg/dL (70-110)
[2023-04-30] MEDS: heparin 5,000 unit/mL INJ 1 mL 5000 UNIT SUBCUT ×2 (03:03→14:05)
[2023-04-30] MEDS: piperacillin-tazobactam 3.375 GM in sodium chloride 0.9% (plus) 50 ML IV ×3 (03:03→20:51)
[2023-04-30] MEDS: AA-Dex 4.25%-5% w/Lytes 1,000 ML 83 ML IV ×2 (04:54→16:23)
[2023-04-30 05:32] LABS: Basophils # 0.1 10^3/uL (0.0-0.1); Basophils % 0.8 %; Eosinophils # 0.1 10^3/uL (0.0-0.8); Eosinophils % 2.1 %; Hematocrit 38.8 % (37-53); Lymphocytes # 0.8 10^3/uL (0.8-4.8); Lymphocytes % 13.1 %; Mean Corpuscular HGB Conc 30.4 g/dL (30-55); Mean Corpuscular Hemoglobin 30.5 pg (27-33); Mean Corpuscular Volume 100.3 fl (82-101); Mean Platelet Volume 10.6 fL (7.4-10.4); Monocytes # 0.7 10^3/uL (0.2-0.9); Monocytes % 10.4 %; Neutrophils % 72.5 %; Nucleated Red Blood Cells % 0 %; Platelet Count 355 10^3/cmm (157-399); Red Blood Count 3.87 10^6/uL (3.85-5.65); Red Cell Distribution Width 16.7 % (12.1-15.1); White Blood Count 6.34 10^3/uL (3.29-11.43)
[2023-04-30] MEDS: metoprolol tartrate 25 mg Tablet 50 MG PO ×3 (05:56→21:56)
[2023-04-30] MEDS: levothyroxine 75 mcg Tablet PO (05:56)
[2023-04-30] MEDS: sertraline 100 mg Tablet 50 MG PO (05:56)
[2023-04-30 06:00] LABS: Carbon Dioxide 26 mmol/L (22-29); Glucose 115 mg/dL (65-115); Magnesium 1.8 mg/dL (1.7-2.3)
[2023-04-30 06:31] LABS: Blood Urea Nitrogen 12 mg/dL (6-20); Calcium 9.8 mg/dL (8.5-10.5); Chloride 96 mmol/L (98-107); Glomerular Filtration Rate 588.1 mL/min (90-130); Osmolality Calculated 281 mOsm/kg (285-295); Sodium 135 mmol/L (136-145)
[2023-04-30] MEDS: lacosamide 200 MG in sodium chloride 0.9% 50 ML 120 MG IV ×2 (06:44→18:19)
[2023-04-30 07:08] LABS: Glucose Point of Care 115 mg/dL (70-110)
[2023-04-30] MEDS: multivitamin therapeutic Tablet 1 TAB PO (10:07)
[2023-04-30] MEDS: sodium chloride 0.9% 250 ML IV (11:05)
[2023-04-30 11:50] LABS: Glucose Point of Care 121 mg/dL (70-110)
--- NOTE | 2023-04-30 16:17 | P.PN_ITS ---
Subjective Subjective: Seen this morning. Patient doing well. Blood pressure stable, saturating 95% on room air. Still sinus tachycardic. Phenytoin level low. Discussed with neurology. Patient having diarrhea Vitals/I&O/Wt Last Vital Signs Temp 98.6 F 04/30/23 08:32 Pulse 136 H 04/30/23 14:00 Resp 18 04/30/23 12:00 BP 131/85 04/30/23 12:00 Pulse Ox 95 04/30/23 12:00 O2 Del Method Room Air 04/30/23 12:00 O2 Flow Rate 5 04/20/23 20:00 04/30/23 04/30/23 04/30/23 06:59 14:59 22:59 Intake Total 871.7 / 2217.033 532 / 532 Output Total 1650 / 3250 600 / 600 Balance -778.3 / -1032.967 -68 / -68 Weight last 48 hrs Weight 61.008 kg Weight 61.235 kg Weight 65.862 kg Physical Exam Narrative: sitting up in chair Currently on room air No new focal deficits Winslow catheter in place S1, S2 sinus tachycardia abd soft Urinary Catheter Management: Winslow: Cath Placed During This Visit: yes Reason for Continuing Indwelling Catheter: Other Urinary Catheter Date of Insertion: 04/06/23 Urinary Catheter Time of Insertion: 20:36 Data 04/30/23 05:00 04/30/23 05:00 Micro: Microbiology 04/29/23 19:41 Bacterial Antigens - Final Urine,Clean Catch 04/29/23 19:41 Legionella Urinary Antigen - Final Urine Catheterized 04/29/23 19:56 Blood Culture - Preliminary Blood SPECIMEN COLLECTED 04/29/23 19:52 Blood Culture - Preliminary Blood SPECIMEN COLLECTED A&P Assessment and plan (1) Hypokalemia: (2) Dehydration: (3) Sinus tachycardia: (4) Intractable epilepsy: (5) Encephalopathy acute: (6) C. difficile colitis: (7) Difficulty swallowing: (8) Pancolitis: (9) Protein-energy malnutrition: (10) Coffee ground emesis: (11) Sepsis: Plan Continue TPN We will check magnesium phosphorus triglyceride and CMP tomorrow Replenish magnesium Patient has been refusing p.o. medications and has very poor oral intake i will touchbase with patients mom regarding a possible peg tube as we cannot continue TPN indefinately. Awaiting guardianship documentation and court date from mother Sinus tachycardia no signs of PE or DVT Breakthrough seizure Discussed with Dr. Amado, neurology. She has adjusted antiepileptic doses. Phenytoin level low stop dilantin place on keppra 1000 bid continue vimpat 200 bid #Diarrhea - check lactic acid - order c.diff , stool culture, ova parasite screen - he may have recurrant c.diff - restart empiric oral vanc while awaiting results - check ct abd pelvis to r/o worsening colitis, last scan apr 11 - ns 250 cc bolus ordered this am Attestations Medical Necessity Statement*: Awaiting guardianship and placement Coding Level of Care Code 07995 Moderate MDM includes number and complexity of problems actively addressed during encounter, amount and/or complexity of data reviewed/ordered and described risk of complication, morbidity or mortality of management as documen koby Diagnoses Hypokalemia E87.6 Dehydration E86.0 Sinus tachycardia R00.0 Intractable epilepsy G40.919 Encephalopathy acute G93.40 C. difficile colitis A04.72 Difficulty swallowing R13.10 Pancolitis K51.00 Protein-energy malnutrition E46 Coffee ground emesis K92.0 Sepsis A41.9
--- NOTE | 2023-04-30 16:19 | CTR_ITS ---
PROCEDURE INFORMATION: Exam: CT Chest With Contrast; Diagnostic Exam date and time: 04/30/2023 5:07 PM Age: 22 years old Clinical indication: Diarrhea; Pna TECHNIQUE: Imaging protocol: Diagnostic computed tomography of the chest with contrast. Radiation optimization: All CT scans at this facility use at least one of these dose optimization techniques: automated exposure control; mA and/or kV adjustment per patient size (includes targeted exams where dose is matched to clinical indication); or iterative reconstruction. Contrast material: OMNI 350; Contrast volume: 100 ml; Contrast route: INTRAVENOUS (IV); REPORTING DATA: Count of CT and Cardiac NM exams in prior 12 months: This patient has received 10 known CTs and 0 known cardiac nuclear medicine studies in the 12 months prior to the current study. COMPARISON: CT angio chest PE protcl [id number] 04/13/2023 10:29 PM RADIATION DOSE METRICS: Total DLP (mGy-cm): 761 FINDINGS: Lungs: Yzsq-vqpffzy-wdxp-right lower lobe consolidation with air bronchograms, improved but still persistent from prior comparison. Few scattered pulmonary nodules measuring up to 5 mm unchanged. Pleural spaces: No pneumothorax or pleural effusion. Heart: No pericardial effusion. Lymph nodes: Similar mediastinal/hilar adenopathy. Vasculature: No aortic aneurysm. Bones/joints: No acute findings Soft tissues: No acute findings. PROCEDURE INFORMATION: Exam: CT Abdomen And Pelvis With Contrast Exam date and time: 04/30/2023 5:07 PM Age: 22 years old Clinical indication: Other: Diarrhea; Other: Pna TECHNIQUE: Imaging protocol: Computed tomography of the abdomen and pelvis with contrast. Radiation optimization: All CT scans at this facility use at least one of these dose optimization techniques: automated exposure control; mA and/or kV adjustment per patient size (includes targeted exams where dose is matched to clinical indication); or iterative reconstruction. Contrast material: OMNI 350; Contrast volume: 100 ml; Contrast route: INTRAVENOUS (IV); REPORTING DATA: Count of CT and Cardiac NM exams in prior 12 months: This patient has received 10 known CTs and 0 known cardiac nuclear medicine studies in the 12 months prior to the current study. COMPARISON: CT abdomen pelvis w con* [id number] 04/11/2023 3:31 PM RADIATION DOSE METRICS: Total DLP (mGy-cm): 761 FINDINGS: Liver: No acute findings. Gallbladder and bile ducts: No calcified stones. No ductal dilation. Pancreas: No ductal dilation. Spleen: No splenomegaly. Adrenal glands: No mass. Kidneys and ureters: No hydronephrosis. Stomach and bowel: No obstruction or acute inflammation. Diffuse submucosal fatty deposition throughout the colon, nonspecific Appendix: Similar mild dilation/thickening of the appendix. Intraperitoneal space: No free air. No significant fluid collection. Vasculature: No abdominal aortic aneurysm. Lymph nodes: No enlarged lymph nodes. Urinary bladder: Decompressed around a Winslow catheter. Reproductive: Unremarkable as visualized. Bones/joints: Degenerative changes without acute findings. 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 Soft tissues: Unremarkable. CT/CT chest abdpel w/*[id number] IMPRESSION: Improved but residual kopd-fjuejbc-znap-right lower lobe consolidation. IMPRESSION: No new/acute abdominal findings or significant short interval change.
[2023-04-30] MEDS: iohexol 350 mg/mL 500 mL Btl (per mL) IV (17:13)
[2023-04-30 17:22] LABS: Lactate (Lactic Acid level) 0.9 mmol/L (0.5-2.2)
[2023-04-30 18:13] LABS: Glucose Point of Care 94 mg/dL (70-110)
[2023-04-30] MEDS: levETIRAcetam 1,000 MG/100 ML PREMIX 400 MG IV (22:07)
[2023-05-01] VITALS (34 sets, daily range): BP systolic 98–122; BP diastolic 66–84; PULSE 111–144; RESP 14–25; TEMP 36.6–37.1; O2SAT 91–100
[2023-05-01 00:37] LABS: Glucose Point of Care 100 mg/dL (70-110)
[2023-05-01] MEDS: AA-Dex 4.25%-5% w/Lytes 1,000 ML 83 ML IV ×2 (01:10→14:12)
[2023-05-01 02:03] LABS: Blood Urea Nitrogen 17 mg/dL (6-20); Calcium 9.8 mg/dL (8.5-10.5); Carbon Dioxide 26 mmol/L (22-29); Chloride 101 mmol/L (98-107); Glomerular Filtration Rate 588.1 mL/min (90-130); Glucose 115 mg/dL (65-115); Osmolality Calculated 288 mOsm/kg (285-295); Sodium 138 mmol/L (136-145)
[2023-05-01] MEDS: heparin 5,000 unit/mL INJ 1 mL 5000 UNIT SUBCUT ×2 (03:38→13:26)
[2023-05-01] MEDS: piperacillin-tazobactam 3.375 GM in sodium chloride 0.9% (plus) 50 ML IV ×2 (03:40→12:26)
[2023-05-01 05:17] LABS: Basophils # 0.1 10^3/uL (0.0-0.1); Basophils % 0.9 %; Eosinophils # 0.2 10^3/uL (0.0-0.8); Eosinophils % 2.6 %; Hematocrit 35.6 % (37-53); Lymphocytes % 15.4 %; Mean Corpuscular HGB Conc 29.8 g/dL (30-55); Mean Corpuscular Hemoglobin 30.5 pg (27-33); Mean Corpuscular Volume 102.3 fl (82-101); Mean Platelet Volume 10.3 fL (7.4-10.4); Monocytes # 0.7 10^3/uL (0.2-0.9); Monocytes % 10.6 %; Neutrophils # 4.51 10^3/uL (1.8-7.7); Neutrophils % 69.6 %; Nucleated Red Blood Cells % 0 %; Platelet Count 328 10^3/cmm (157-399); Red Blood Count 3.48 10^6/uL (3.85-5.65); White Blood Count 6.49 10^3/uL (3.29-11.43)
[2023-05-01 05:29] LABS: Alanine Aminotransferase 50 U/L (0-41); Albumin Level 3.1 g/dL (3.5-5.2); Alkaline Phosphatase 98 U/L (40-130); Aspartate Amino Transferase 46 U/L (0-40); Blood Urea Nitrogen 15 mg/dL (6-20); Calcium 9.9 mg/dL (8.5-10.5); Carbon Dioxide 24 mmol/L (22-29); Chloride 100 mmol/L (98-107); Globulin 3.1 g/dL (1.3-4.6); Glomerular Filtration Rate 588.1 mL/min (90-130); Glucose 99 mg/dL (65-115); Osmolality Calculated 283 mOsm/kg (285-295); Sodium 136 mmol/L (136-145); Total Bilirubin 0.2 mg/dL (0.15-1.2); Total Protein 6.2 g/dL (6.6-8.7)
[2023-05-01 05:34] LABS: Anion Gap 16.1 (5-19); Potassium 4.1 mmol/L (3.5-5.1)
[2023-05-01 05:35] LABS: Glucose Point of Care 114 mg/dL (70-110)
[2023-05-01] MEDS: levothyroxine 75 mcg Tablet PO (06:33)
[2023-05-01] MEDS: sertraline 100 mg Tablet 50 MG PO (06:33)
[2023-05-01] MEDS: metoprolol tartrate 25 mg Tablet 50 MG PO ×2 (06:34→21:56)
[2023-05-01] MEDS: lacosamide 200 MG in sodium chloride 0.9% 50 ML 120 MG IV ×2 (06:53→18:12)
[2023-05-01 11:31] LABS: Thyroid Stimulating Hormone 5.06 uIU/mL (0.27-4.20)
[2023-05-01] MEDS: levETIRAcetam 1,000 MG/100 ML PREMIX 400 MG IV ×2 (12:26→21:56)
--- NOTE | 2023-05-01 12:56 | PM.PN ---
Subjective Subjective: seen today no acute events overnight spoke to patients' mom on the phone she is concerned for his oral intake and dysphagia. she says he has not had any workup of dysphagia. I do see a barium swallow that was done in 2021 which was aborted because patient could not ingest the contrast. Patient is also had MRI and MRA brain on April 13 which ruled out stroke. I discussed all of the above with the patient's mother. She states he is also a picky eater. She states that he has had longstanding issues with dysphagia and this is not a new problem. Ultimately she says she would like him transferred to [facility] because his neurologist is there. I also discussed with her the possibility of a PEG tube she says she is not sure about and will think about it. I also let Hussein know that we were thinking of transferring him to [place] and he said he wanted to go there as well. I discussed with him regarding a feeding tube but he answered me saying no he does not want that in his stomach.Patient's mom also states that she does not want Dr. Amado on his case at all. Vitals/I&O/Wt Last Vital Signs Temp 98.8 F 05/01/23 00:30 Pulse 131 H 05/01/23 12:30 Resp 17 05/01/23 12:30 BP 106/75 05/01/23 11:30 Pulse Ox 96 05/01/23 12:30 O2 Del Method Nasal Cannula 05/01/23 08:29 O2 Flow Rate 2 05/01/23 08:29 04/30/23 05/01/23 05/01/23 22:59 06:59 14:59 Intake Total 1653.675 / 2185.675 778.792 / 2964.467 20.833 / 20.833 Output Total 900 / 1900 Balance 1653.675 / 1185.675 -121.208 / 1064.467 20.833 / 20.833 Weight last 48 hrs Weight 61.008 kg Weight 61.235 kg Physical Exam Narrative: sitting up in chair Currently on room air No new focal deficits Winslow catheter in place S1, S2 sinus tachycardia abd soft Urinary Catheter Management: Winslow: Cath Placed During This Visit: yes Reason for Continuing Indwelling Catheter: Accurate Measurement of Urinary Output in Critically Ill Patients Urinary Catheter Date of Insertion: 04/06/23 Urinary Catheter Time of Insertion: 20:36 Data 05/01/23 04:15 05/01/23 04:15 Micro: Microbiology 04/29/23 19:41 Legionella Urinary Antigen - Final Urine Catheterized Urine Culture - Preliminary Yeast species 04/29/23 19:56 Blood Culture - Preliminary Blood NEGATIVE TO DATE 04/29/23 19:52 Blood Culture - Preliminary Blood NEGATIVE TO DATE 04/29/23 19:41 Bacterial Antigens - Final Urine,Clean Catch A&P Assessment and plan (1) Hypokalemia: (2) Dehydration: (3) Sinus tachycardia: (4) Intractable epilepsy: (5) Encephalopathy acute: (6) C. difficile colitis: (7) Difficulty swallowing: (8) Pancolitis: (9) Protein-energy malnutrition: (10) Coffee ground emesis: (11) Sepsis: Plan Continue TPN We will check magnesium phosphorus triglyceride and CMP tomorrow Replenish magnesium Patient has been refusing p.o. medications and has very poor oral intake Awaiting guardianship documentation and court date from mother Sinus tachycardia no signs of PE or DVT talked with patient's mom, she is requesting transfer to [facility] She is undecided on the peg tube Breakthrough seizure Discussed with Dr. Amado, neurology. She has adjusted antiepileptic doses. Phenytoin level low stop dilantin place on keppra 1000 bid continue vimpat 200 bid #Diarrhea - improved - check lactic acid, normal - order c.diff , stool culture, sample obtained - had 1 bm overnight. - hold off on abx - CT abd pelvis reviewed, no changes. full code Attestations Medical Necessity Statement*: Awaiting guardianship and placement Diagnoses Hypokalemia E87.6 Dehydration E86.0 Sinus tachycardia R00.0 Intractable epilepsy G40.919 Encephalopathy acute G93.40 C. difficile colitis A04.72 Difficulty swallowing R13.10 Pancolitis K51.00 Protein-energy malnutrition E46 Coffee ground emesis K92.0 Sepsis A41.9
[2023-05-01 14:06] LABS: Glucose Point of Care 102 mg/dL (70-110)
--- NOTE | 2023-05-01 14:21 | PC.NURSE ---
This nursed tried administering patients order metoprolol per AUG. This nurse told patient that the medication would help maintain a regular heart rate. Patients heart rate is currently 125bpm. Patient told this nurse he would take the medication. This nurse crushed meds and put it in applesauce. Patient refused to take medication. MD notified. No further concerns at this time.
[2023-05-01 18:21] LABS: Glucose Point of Care 120 mg/dL (70-110)
[2023-05-01 23:43] LABS: Glucose Point of Care 108 mg/dL (70-110)
[2023-05-02] VITALS (9 sets, daily range): BP systolic 104–121; BP diastolic 56–83; PULSE 112–130; RESP 14–18; TEMP 36.6–37; O2SAT 94–98
[2023-05-02] MEDS: AA-Dex 4.25%-5% w/Lytes 1,000 ML 83 ML IV ×3 (01:53→23:15)
[2023-05-02] MEDS: heparin 5,000 unit/mL INJ 1 mL 5000 UNIT SUBCUT ×2 (02:28→17:18)
[2023-05-02 06:18] LABS: Glucose Point of Care 107 mg/dL (70-110)
[2023-05-02] MEDS: metoprolol tartrate 25 mg Tablet 50 MG PO ×3 (06:18→23:11)
[2023-05-02] MEDS: sertraline 100 mg Tablet 50 MG PO (06:18)
[2023-05-02] MEDS: levothyroxine 75 mcg Tablet PO (06:19)
[2023-05-02 06:53] LABS: Basophils # 0.1 10^3/uL (0.0-0.1); Basophils % 0.5 %; Eosinophils # 0.1 10^3/uL (0.0-0.8); Eosinophils % 1.5 %; Lymphocytes # 0.8 10^3/uL (0.8-4.8); Lymphocytes % 8.8 %; Mean Corpuscular HGB Conc 30.6 g/dL (30-55); Mean Platelet Volume 10.4 fL (7.4-10.4); Monocytes # 0.7 10^3/uL (0.2-0.9); Monocytes % 7.8 %; Neutrophils # 7.46 10^3/uL (1.8-7.7); Neutrophils % 80.8 %; Nucleated Red Blood Cells % 0 %; Platelet Count 361 10^3/cmm (157-399); Red Blood Count 3.47 10^6/uL (3.85-5.65); Red Cell Distribution Width 16.3 % (12.1-15.1); White Blood Count 9.24 10^3/uL (3.29-11.43)
[2023-05-02 07:15] LABS: Alanine Aminotransferase 59 U/L (0-41); Albumin Level 3.3 g/dL (3.5-5.2); Alkaline Phosphatase 108 U/L (40-130); Aspartate Amino Transferase 47 U/L (0-40); Blood Urea Nitrogen 15 mg/dL (6-20); Calcium 9.1 mg/dL (8.5-10.5); Carbon Dioxide 24 mmol/L (22-29); Chloride 101 mmol/L (98-107); Globulin 2.8 g/dL (1.3-4.6); Glomerular Filtration Rate 204.3 mL/min (90-130); Glucose 103 mg/dL (65-115); Magnesium 1.8 mg/dL (1.7-2.3); Osmolality Calculated 285 mOsm/kg (285-295); Phosphorus 4.1 mg/dL (2.5-4.5); Sodium 137 mmol/L (136-145); Total Bilirubin 0.2 mg/dL (0.15-1.2); Total Protein 6.1 g/dL (6.6-8.7)
[2023-05-02] MEDS: fluconazole 100 mg Tablet 150 MG PO (09:58)
[2023-05-02] MEDS: lacosamide 200 MG in sodium chloride 0.9% 50 ML 120 MG IV ×2 (09:58→21:03)
[2023-05-02 11:29] LABS: Glucose Point of Care 119 mg/dL (70-110)
[2023-05-02] MEDS: levETIRAcetam 1,000 MG/100 ML PREMIX 400 MG IV ×2 (12:18→23:20)
--- NOTE | 2023-05-02 13:10 | PM.PN ---
Subjective Subjective: seen today no acute events overnight family undecided on peg tube talked with nursing staff, patient swallows tablets and water ok, he is extremely picky on what he accepts to eat but refuses food usually Vitals/I&O/Wt Last Vital Signs Temp 98.3 F 05/02/23 08:00 Pulse 122 H 05/02/23 09:48 Resp 16 05/02/23 09:48 BP 104/56 05/02/23 08:00 Pulse Ox 95 05/02/23 09:48 O2 Del Method Room Air 05/02/23 09:48 O2 Flow Rate 2 05/01/23 08:29 05/01/23 05/02/23 05/02/23 22:59 06:59 14:59 Intake Total 170 / 585.730 0276 / 1977.583 649.617 / 649.617 Output Total 800 / 800 400 / 1200 Balance -630 / 177.583 600 / 777.583 649.617 / 649.617 Weight last 48 hrs Weight 60.526 kg Physical Exam Narrative: sitting up in chair Currently on room air No new focal deficits Winslow catheter in place S1, S2 sinus tachycardia abd soft Urinary Catheter Management: Winslow: Cath Placed During This Visit: yes Reason for Continuing Indwelling Catheter: Acute Urinary Retention or Obstruction Urinary Catheter Date of Insertion: 04/06/23 Urinary Catheter Time of Insertion: 20:36 Data 05/02/23 06:07 05/02/23 06:07 Micro: Microbiology 04/29/23 19:41 Legionella Urinary Antigen - Final Urine Catheterized Urine Culture - Preliminary Yeast species A&P Assessment and plan (1) Hypokalemia: (2) Dehydration: (3) Sinus tachycardia: (4) Intractable epilepsy: (5) Encephalopathy acute: (6) C. difficile colitis: (7) Difficulty swallowing: (8) Pancolitis: (9) Protein-energy malnutrition: (10) Coffee ground emesis: (11) Sepsis: Plan Continue TPN We will check magnesium phosphorus triglyceride and CMP tomorrow Replenish magnesium Patient has been refusing p.o. medications and has very poor oral intake Awaiting guardianship documentation and court date from mother Sinus tachycardia no signs of PE or DVT talked with patient's mom, she is [facility] talked with [facility], they declined to accept transfer at this time due to it being a lateral transfer. She is undecided on the peg tube Breakthrough seizure Discussed with Dr. Amado, neurology. She has adjusted antiepileptic doses. Phenytoin level low stop dilantin place on keppra 1000 bid continue vimpat 200 bid check kepra level #Diarrhea - improved - check lactic acid, normal - order c.diff , stool culture, sample obtained - had 1 bm overnight. - hold off on abx - CT abd pelvis reviewed, no changes. full code Attestations Medical Necessity Statement*: Awaiting guardianship and placement Diagnoses Hypokalemia E87.6 Dehydration E86.0 Sinus tachycardia R00.0 Intractable epilepsy G40.919 Encephalopathy acute G93.40 C. difficile colitis A04.72 Difficulty swallowing R13.10 Pancolitis K51.00 Protein-energy malnutrition E46 Coffee ground emesis K92.0 Sepsis A41.9
[2023-05-02 15:57] LABS: Glucose Point of Care 111 mg/dL (70-110)
[2023-05-02 21:12] LABS: Glucose Point of Care 118 mg/dL (70-110)
[2023-05-03] VITALS (11 sets, daily range): BP systolic 95–119; BP diastolic 41–87; PULSE 17–146; RESP 16–18; TEMP 36.6–37; O2SAT 95–97
[2023-05-03] MEDS: heparin 5,000 unit/mL INJ 1 mL 5000 UNIT SUBCUT ×2 (02:28→17:43)
[2023-05-03] MEDS: sertraline 100 mg Tablet 50 MG PO (05:46)
[2023-05-03] MEDS: metoprolol tartrate 25 mg Tablet 50 MG PO (05:46)
[2023-05-03] MEDS: levothyroxine 75 mcg Tablet PO (05:47)
[2023-05-03 06:36] LABS: Basophils # 0.1 10^3/uL (0.0-0.1); Basophils % 0.5 %; Eosinophils # 0.1 10^3/uL (0.0-0.8); Eosinophils % 0.6 %; Hematocrit 34.8 % (37-53); Lymphocytes # 0.8 10^3/uL (0.8-4.8); Lymphocytes % 8.7 %; Mean Corpuscular Hemoglobin 30.7 pg (27-33); Mean Corpuscular Volume 98.9 fl (82-101); Mean Platelet Volume 10.8 fL (7.4-10.4); Monocytes # 0.7 10^3/uL (0.2-0.9); Monocytes % 7.4 %; Neutrophils # 7.67 10^3/uL (1.8-7.7); Neutrophils % 82.1 %; Nucleated Red Blood Cells % 0 %; Platelet Count 363 10^3/cmm (157-399); Red Blood Count 3.52 10^6/uL (3.85-5.65); Red Cell Distribution Width 16.2 % (12.1-15.1); White Blood Count 9.35 10^3/uL (3.29-11.43)
[2023-05-03 07:04] LABS: Anion Gap 16.3 (5-19); Blood Urea Nitrogen 11 mg/dL (6-20); Calcium 9.6 mg/dL (8.5-10.5); Carbon Dioxide 22 mmol/L (22-29); Chloride 96 mmol/L (98-107); Glomerular Filtration Rate 204.3 mL/min (90-130); Glucose 249 mg/dL (65-115); Osmolality Calculated 276 mOsm/kg (285-295); Potassium 5.3 mmol/L (3.5-5.1); Sodium 129 mmol/L (136-145)
[2023-05-03] MEDS: FUROsemide 10 mg/mL SDV 2mL IVP (09:33)
[2023-05-03] MEDS: fluconazole 100 mg Tablet 150 MG PO (09:33)
[2023-05-03] MEDS: lacosamide 200 MG in sodium chloride 0.9% 50 ML 120 MG IV (09:35)
[2023-05-03 09:40] LABS: Levetiracetam Immunoassy 5.4 mcg/mL (6.0-46.0)
[2023-05-03 10:11] LABS: Anion Gap 16.1 (5-19); Blood Urea Nitrogen 11 mg/dL (6-20); Calcium 9.3 mg/dL (8.5-10.5); Carbon Dioxide 22 mmol/L (22-29); Chloride 98 mmol/L (98-107); Glomerular Filtration Rate 204.3 mL/min (90-130); Glucose 114 mg/dL (65-115); Osmolality Calculated 274 mOsm/kg (285-295); Potassium 4.1 mmol/L (3.5-5.1); Sodium 132 mmol/L (136-145)
[2023-05-03] MEDS: sodium chloride 0.9% 1,000 ML 999 ML IV (12:09)
--- NOTE | 2023-05-03 12:14 | ECG_ITS ---
[facility] Test Date: 2023-05-03 Pat Name: Hussein Man Department: Room: 279 Gender: Male Manager Adobe: : 2000 Requested By: Shelbie Zheng Order Number: [id number] Elver MD: Miriam Marcus M.D. Measurements Intervals Gibson Rate: 128 P: 32 LA: 130 QRS: 42 QRSD: 72 T: 62 QT: 286 QTc: 418 Interpretive Statements SINUS TACHYCARDIA ABNORMAL RHYTHM ECG Compared to ECG 04/29/2023 20:02:59 No significant changes Electronically Signed On 05-03-2023 13:50:03 KERFER MACHINE OPERATOR by Miriam Marcus M.D. [email or web address] luther hospital medical centerPURE [employer]/store/OM/[id number]
[2023-05-03] MEDS: levETIRAcetam 1,000 MG/100 ML PREMIX 400 MG IV ×2 (12:45→22:57)
[2023-05-03 13:00] LABS: Clostridium Difficile PCR NOT DETECTED (NOT DETECTED)
[2023-05-03 13:02] LABS: Glucose Point of Care 101 mg/dL (70-110)
--- NOTE | 2023-05-03 13:24 | PM.PN ---
Subjective Subjective: Seen this morning. Patient states his back is itching. He would like the cream removed that was placed earlier. He also stated that he is not hungry and that is why he does not eat. He does not report any dysphagia or pain upon swallowing otherwise. Later on he asked the nurses for Dr. Ibarra and chicken strips. Labs reviewed this morning. Hyponatremia, hyperkalemia noted. Repeat BMP done 2 hours later was normal. Vitals/I&O/Wt Last Vital Signs Temp 97.9 F 05/03/23 11:28 Pulse 136 H 05/03/23 11:28 Resp 16 05/03/23 11:28 BP 95/41 05/03/23 11:28 Pulse Ox 95 05/03/23 11:28 O2 Del Method Room Air 05/03/23 11:28 O2 Flow Rate 2 05/01/23 08:29 05/02/23 05/03/23 05/03/23 22:59 06:59 14:59 Intake Total 1000 / 1749.617 170 / 1919.617 Output Total 1050 / 1850 700 / 2550 Balance -50 / -100.383 -530 / -630.383 Weight last 48 hrs Weight 62.227 kg Weight 60.526 kg Physical Exam Narrative: sitting up in bed Currently on room air No new focal deficits Winslow catheter in place S1, S2 sinus tachycardia abd soft back covered with zinc oxide skin on dependent areas is flaky and peeling off Urinary Catheter Management: Winslow: Cath Placed During This Visit: yes Reason for Continuing Indwelling Catheter: Acute Urinary Retention or Obstruction Urinary Catheter Date of Insertion: 04/06/23 Urinary Catheter Time of Insertion: 20:36 Data 05/03/23 05:52 05/03/23 09:28 A&P Assessment and plan (1) Hypokalemia: (2) Dehydration: (3) Sinus tachycardia: (4) Intractable epilepsy: (5) Encephalopathy acute: (6) C. difficile colitis: (7) Difficulty swallowing: (8) Pancolitis: (9) Protein-energy malnutrition: (10) Coffee ground emesis: (11) Sepsis: Plan Continue TPN We will check magnesium phosphorus triglyceride and CMP tomorrow Replenish magnesium Patient has been refusing p.o. medications and has very poor oral intake Awaiting guardianship documentation and court date from mother Sinus tachycardia no signs of PE or DVT talked with patient's mom, she is requesting transfer to [facility]. talked with [facility], they declined to accept transfer at this time due to it being a lateral transfer. She is undecided on the peg tube Breakthrough seizure Discussed with Dr. Amado, neurology. She has adjusted antiepileptic doses. Family states they DO NOT want Dr. Amado to see their son. Continue keppra 1000 bid continue vimpat 200 bid check kepra level Pt has been seizure free on above regimen #Skin Rash on Back - Rash present on dependent areas with skin peeling off - Hydrocortisone 1% ordered for itching - Frequent position encouraged. Pt refuses to work with therapy. #Diarrhea - improved - check lactic acid, normal - order c.diff , stool culture, sample obtained - had 1 bm overnight. - hold off on abx - CT abd pelvis reviewed, no changes. Patient refuses to work with PT. Requesting chicken strips and dr. ibarra. denies dysphagia or odynophagia when asked.I believe patient's poor intake is secondary to choice and him being a picky eater, i dont think its due to other cause. However we will still go ahead and do a barium swallow as per family request in AM. Discussion needs to take place with family after MBS regarding PEG tube vs hospice. TPN is not sustainable termite helper and carries a risk of infection (i did explain this to the family) #Hypotension #sinus tachycardic - BP 96/41 earlier - ordered NS 500 CC bolus - Recheck BP after bolus. COntinue to monitor - Continue metoprolol 50 q8 hours - Check EKG - shows sinus tachycardia Full Code Attestations Medical Necessity Statement*: Awaiting guardianship and placement Diagnoses Hypokalemia E87.6 Dehydration E86.0 Sinus tachycardia R00.0 Intractable epilepsy G40.919 Encephalopathy acute G93.40 C. difficile colitis A04.72 Difficulty swallowing R13.10 Pancolitis K51.00 Protein-energy malnutrition E46 Coffee ground emesis K92.0 Sepsis A41.9
--- NOTE | 2023-05-03 15:11 | ECG_ITS ---
[facility] Test Date: 2023-05-03 Pat Name: Hussein Man Department: Room: 279 Gender: Male Home Furnishings Sales Representative: : 2000 Requested By: Mateo Mackenzie Order Number: [id number] Elver MD: Miriam Marcus M.D. Measurements Intervals [employer] Rate: 132 P: 41 SD: 132 QRS: 39 QRSD: 76 T: 48 QT: 288 QTc: 427 Interpretive Statements SINUS TACHYCARDIA NONSPECIFIC T-WAVE ABNORMALITY ABNORMAL RHYTHM ECG Compared to ECG 05/03/2023 13:14:07 T-wave abnormality now present Electronically Signed On 05-04-2023 13:46:23 ELECTROTHERAPIST by Miriam Marcus M.D. [email or web address] [email or web address] mississippi medical centerShidonniohiohealth van wert hospitalZimbra/store/OM/[id number]/[id number]
--- NOTE | 2023-05-03 15:13 | XRR_ITS ---
PROCEDURE INFORMATION: Exam: XR Chest Exam date and time: 05/03/2023 6:19 PM Age: 22 years old Clinical indication: Condition or disease; Other: Sinus tachycardia TECHNIQUE: Imaging protocol: Radiologic exam of the chest. Views: 1 view. COMPARISON: CT chest abdpel w/*[id number] 04/30/2023 5:07 PM FINDINGS: Tubes, catheters and devices: Right-sided PICC redemonstrated. Lungs: Subtle opacities in the left lung base laterally. Pleural spaces: Unremarkable. No pleural effusion. No pneumothorax. Heart/Mediastinum: Unremarkable. No cardiomegaly. Bones/joints: Unremarkable. XR/XR chest 1V portable [id number] IMPRESSION: Subtle opacities in the left lung base laterally.
[2023-05-03 15:37] LABS: ABG PCO2 36.7 mmHg (35-45); ABG PH Result 7.44 (7.35-7.45); Arterial Blood Gas Hematocrit 33.9 % (42-52); Blood Gas Operator Identificat AMH; Blood Gas Sample Site Brachial, left; Blood Gas Sample Type Arterial; Oxygen Device ROOM AIR; PO2 ABG 76.7 mmHg (80.0-100.0); PO2 FiO2 Ratio Arterial Blood 0
[2023-05-03] MEDS: hydrocortisone 1% cream 28 gm 1 APPLIC TOPICAL (16:07)
[2023-05-03] MEDS: AA-Dex 4.25%-5% w/Lytes 1,000 ML 83 ML IV (16:09)
[2023-05-03 16:23] LABS: Reflex FDPQ test REFLEX FDP QUEST TES
[2023-05-03 16:28] LABS: Basophils # 0.1 10^3/uL (0.0-0.1); Basophils % 0.5 %; Eosinophils # 0.1 10^3/uL (0.0-0.8); Hematocrit 33.9 % (37-53); Lymphocytes # 1.1 10^3/uL (0.8-4.8); Lymphocytes % 11.1 %; Mean Corpuscular HGB Conc 31.9 g/dL (30-55); Mean Corpuscular Hemoglobin 30.2 pg (27-33); Mean Corpuscular Volume 94.7 fl (82-101); Mean Platelet Volume 10.8 fL (7.4-10.4); Monocytes # 0.9 10^3/uL (0.2-0.9); Monocytes % 9.2 %; Neutrophils # 7.58 10^3/uL (1.8-7.7); Neutrophils % 77.6 %; Nucleated Red Blood Cells % 0 %; Platelet Count 355 10^3/cmm (157-399); Red Blood Count 3.58 10^6/uL (3.85-5.65); Red Cell Distribution Width 15.9 % (12.1-15.1); White Blood Count 9.78 10^3/uL (3.29-11.43)
[2023-05-03 16:50] LABS: INR 2.29 (0.8-1.2); Partial Thromboplastin Time 39.1 SECONDS (23.9-36.7)
[2023-05-03 16:53] LABS: Ammonia 26 umol/L (16-60); D Dimer 0.59 ug/mLFEU (0-0.59); Lactic Sepsis W/Reflex 0.9 mmol/L (0.5-2.2)
[2023-05-03 16:56] LABS: Troponin(5th) Baseline 45 ng/L (0-15)
[2023-05-03 16:57] LABS: Fibrinogen 529 mg/dL (174-498)
[2023-05-03 17:03] LABS: Procalcitonin 0.15 ng/mL (0-0.5)
[2023-05-03 17:14] LABS: Alanine Aminotransferase 59 U/L (0-41); Albumin Level 3.4 g/dL (3.5-5.2); Alkaline Phosphatase 104 U/L (40-130); Anion Gap 18.6 (5-19); Aspartate Amino Transferase 31 U/L (0-40); Blood Urea Nitrogen 10 mg/dL (6-20); C Reactive Protein 14.9 mg/L (0.0-4.9); Calcium 9.4 mg/dL (8.5-10.5); Carbon Dioxide 22 mmol/L (22-29); Chloride 94 mmol/L (98-107); Globulin 2.9 g/dL (1.3-4.6); Glomerular Filtration Rate 204.3 mL/min (90-130); Glucose 93 mg/dL (65-115); Magnesium 1.5 mg/dL (1.7-2.3); Osmolality Calculated 271 mOsm/kg (285-295); Phosphorus 3.7 mg/dL (2.5-4.5); Potassium 3.6 mmol/L (3.5-5.1); Sodium 131 mmol/L (136-145); Total Bilirubin 0.2 mg/dL (0.15-1.2); Total Protein 6.3 g/dL (6.6-8.7)
[2023-05-03 17:21] LABS: Erythrocyte Sedimentation Rate 45 mm/hr (0-10)
[2023-05-03 17:36] LABS: Ferritin 543 ng/mL (30-400)
--- NOTE | 2023-05-03 17:42 | PC.NURSE ---
Dr. Zheng notified of patient low blood pressure. Dr. Zheng gave verbal order to hold lopressor.
[2023-05-03 17:58] LABS: Thyroid Stimulating Hormone 6.03 uIU/mL (0.27-4.20)
--- NOTE | 2023-05-03 18:22 | PC.NURSE ---
Patient has been tachycardic all day today in the 130s-140s. Dr. Zheng notified. Bolus and labs ordered.
[2023-05-03 18:58] LABS: Troponin 5 2HR 44.97 ng/L (0-15)
[2023-05-03 18:59] LABS: Troponin 5 2HR Delta -0.03 ABS# (0-10)
[2023-05-03 19:18] LABS: Adenovirus Not Detected (NOT DETECT); Chlamydia Pneumoniae Not Detected (NOT DETECT); Coronavirus 229E,HKU1,NL63,OC4 Not Detected (NOT DETECT); Human Metapneumovirus Not Detected (NOT DETECT); Human Rhinovirus/Enterovirus Not Detected (NOT DETECT); Influenza A Not Detected (NOT DETECT); Influenza A H1 Not Detected (NOT DETECT); Influenza A H1-2009 Not Detected (NOT DETECT); Influenza A H3 Not Detected (NOT DETECT); Influenza B Not Detected (NOT DETECT); Mycoplasma Pneumoniae Not Detected (NOT DETECT); Parainfluenza Virus Type 1 Not Detected (NOT DETECT); Parainfluenza Virus Type 2 Not Detected (NOT DETECT); Parainfluenza Virus Type 3 Not Detected (NOT DETECT); Parainfluenza Virus Type 4 Not Detected (NOT DETECT); Respiratory Syncytial Virus A Not Detected (NOT DETECT); Respiratory Syncytial Virus B Not Detected (NOT DETECT); SARS-COV-2 Not Detected (NOT DETECT)
--- NOTE | 2023-05-03 21:12 | ECG_ITS ---
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 Measurements Intervals [place] Rate: 145 P: 57 IN: 126 QRS: 46 QRSD: 74 T: 54 QT: 270 QTc: 421 Interpretive Statements SINUS TACHYCARDIA NONSPECIFIC T-WAVE ABNORMALITY ABNORMAL RHYTHM ECG Compared to ECG 05/03/2023 15:48:55 No significant changes Electronically Signed On 05-04-2023 13:53:25 ADJ[employer]CT PROFESSOR [employer] by Miriam Marcus M.D. [id number]
--- NOTE | 2023-05-03 21:23 | CTR_ITS ---
PROCEDURE INFORMATION: Exam: CT Thoracic Spine With Contrast Exam date and time: 05/04/2023 9:58 AM Age: 22 years old Clinical indication: Other: R/O spinal abscess TECHNIQUE: Imaging protocol: Computed tomography of the thoracic spine with contrast. Radiation optimization: All CT scans at this facility use at least one of these dose optimization techniques: automated exposure control; mA and/or kV adjustment per patient size (includes targeted exams where dose is matched to clinical indication); or iterative reconstruction. Contrast material: OMNI 350; Contrast volume: 50 ml; Contrast route: INTRAVENOUS (IV); REPORTING DATA: Count of CT and Cardiac NM exams in prior 12 months: This patient has received 11 known CTs and 0 known cardiac nuclear medicine studies in the 12 months prior to the current study. COMPARISON: CT lumbar spine w con [id number] 05/04/2023 9:54 AM RADIATION DOSE METRICS: Total DLP (mGy-cm): 576.91 FINDINGS: Bones/joints: No acute fracture. Normal alignment. No significant disc bulge or herniation. No severe spinal canal stenosis. No significant neural foraminal narrowing. Spinal cord: 10 mm x 3 mm x 2 mm area of focal enhancement in the left spinal cord at the lower T10 level. Soft tissues: Unremarkable. Lymph nodes: Bilateral supraclavicular lymphadenopathy. Mediastinal lymphadenopathy. Bilateral pulmonary hilar lymphadenopathy. Lungs: 5 mm solid noncalcified nodule right lung with similar smaller nodule left lung. Bilateral atelectasis and/or pneumonitis. CT/CT thoracic spine w con [id number] IMPRESSION: 1. 10 mm x 3 mm x 2 mm focal enhancement in the left spinal cord at the T10 level could be inflammatory or neoplastic. 2. Lymphadenopathy could be reactive or neoplastic. 3. No abscess. 4. Small bilateral noncalcified pulmonary nodules.For patients at low risk (minimal or absent history of smoking and of other known risk factors), no routine follow-up is indicated. For patients at high risk (history of smoking or of other known risk factors), consider optional CT Chest at 12 months. (Reference: Angie) REFERENCES: Angie Garcia et al. Guidelines for Management of Incidental Pulmonary Nodules Detected on CT Images: From the Fleischner Society 2017. Radiology. 2017;284(1):228-243.
--- NOTE | 2023-05-03 21:23 | CTR_ITS ---
PROCEDURE INFORMATION: Exam: CT Lumbar Spine With Contrast Exam date and time: 05/04/2023 9:54 AM Age: 22 years old Clinical indication: Other: R/O spinal abscess TECHNIQUE: Imaging protocol: Computed tomography of the lumbar spine with contrast. Radiation optimization: All CT scans at this facility use at least one of these dose optimization techniques: automated exposure control; mA and/or kV adjustment per patient size (includes targeted exams where dose is matched to clinical indication); or iterative reconstruction. Contrast material: OMNI 350; Contrast volume: 80 ml; Contrast route: INTRAVENOUS (IV); REPORTING DATA: Count of CT and Cardiac NM exams in prior 12 months: This patient has received 11 known CTs and 0 known cardiac nuclear medicine studies in the 12 months prior to the current study. COMPARISON: CR XR lumbar spine 2-3V* [id number] 03/16/2023 11:02 PM RADIATION DOSE METRICS: Total DLP (mGy-cm): 478.86 FINDINGS: Bones/joints: No acute fracture. Normal alignment. No significant disc bulge or herniation. No severe spinal canal stenosis. No significant neural foraminal narrowing. Soft tissues: Unremarkable. CT/CT lumbar spine w con [id number] IMPRESSION: No acute findings. No abscess.
[2023-05-03] MEDS: magnesium sulfate premix 1 GM/100 ML PIGGYBACK IV (22:24)
[2023-05-03 23:13] LABS: Troponin 5 6HR 47.26 ng/L (0-15)
[2023-05-03 23:15] LABS: Troponin 5 6HR Delta 2.26 ng/L (0-12)
[2023-05-03] MEDS: amiodarone 150 MG/100 ML PREMIX 400 MG IV (23:18)
[2023-05-03 23:24] LABS: Glucose Point of Care 138 mg/dL (70-110)
[2023-05-04] VITALS (9 sets, daily range): BP systolic 87–113; BP diastolic 54–76; PULSE 103–144; RESP 16–23; TEMP 36.3–37.6; O2SAT 94–98
[2023-05-04] MEDS: metoprolol tartrate 25 mg Tablet 50 MG PO ×2 (00:16→05:48)
[2023-05-04] MEDS: micafungin 100 MG in sodium chloride 0.9% (plus) 100 ML IV (00:17)
[2023-05-04 01:02] LABS: Free T4 Free Thyroxine 1.91 ng/dL (0.82-1.77)
[2023-05-04] MEDS: heparin 5,000 unit/mL INJ 1 mL 5000 UNIT SUBCUT ×2 (01:49→16:07)
[2023-05-04] MEDS: AA-Dex 4.25%-5% w/Lytes 1,000 ML 83 ML IV ×2 (03:50→17:13)
[2023-05-04 05:43] LABS: Basophils # 0.1 10^3/uL (0.0-0.1); Basophils % 0.7 %; Eosinophils # 0.1 10^3/uL (0.0-0.8); Eosinophils % 0.8 %; Hematocrit 33.1 % (37-53); Lymphocytes # 0.7 10^3/uL (0.8-4.8); Lymphocytes % 8.1 %; Mean Corpuscular Hemoglobin 31.1 pg (27-33); Mean Corpuscular Volume 97.1 fl (82-101); Mean Platelet Volume 10.7 fL (7.4-10.4); Monocytes # 0.9 10^3/uL (0.2-0.9); Monocytes % 9.3 %; Neutrophils # 7.35 10^3/uL (1.8-7.7); Neutrophils % 80.2 %; Nucleated Red Blood Cells % 0 %; Platelet Count 347 10^3/cmm (157-399); Red Blood Count 3.41 10^6/uL (3.85-5.65); Red Cell Distribution Width 15.9 % (12.1-15.1); White Blood Count 9.15 10^3/uL (3.29-11.43)
[2023-05-04] MEDS: levothyroxine 75 mcg Tablet PO (05:47)
[2023-05-04] MEDS: sertraline 100 mg Tablet 50 MG PO (05:48)
[2023-05-04 06:03] LABS: Anion Gap 12.9 (5-19); Blood Urea Nitrogen 12 mg/dL (6-20); Calcium 9.3 mg/dL (8.5-10.5); Carbon Dioxide 25 mmol/L (22-29); Chloride 95 mmol/L (98-107); Glomerular Filtration Rate 204.3 mL/min (90-130); Glucose 110 mg/dL (65-115); Magnesium 1.9 mg/dL (1.7-2.3); Osmolality Calculated 268 mOsm/kg (285-295); Potassium 3.9 mmol/L (3.5-5.1); Sodium 129 mmol/L (136-145)
[2023-05-04 06:05] LABS: Glucose Point of Care 113 mg/dL (70-110)
--- NOTE | 2023-05-04 08:25 | USR_ITS ---
PROCEDURE INFORMATION: Exam: US Soft Tissue Head and Neck, Thyroid Exam date and time: 05/04/2023 11:24 AM Age: 22 years old Clinical indication: Abnormal findings; Abnormal thyroid lab test; Additional info: Elevated tsh, t4 TECHNIQUE: Imaging protocol: Real-time ultrasound scan of the neck with image documentation. Exam focused on the thyroid. COMPARISON: US thyroid [id number] 07/04/2022 3:55 PM FINDINGS: Right thyroid lobe: No nodules. Normal. Not hypervascular. 4.1 cm x 1.6 cm x 1.5 cm. Left thyroid lobe: No nodules. Normal. Not hypervascular. 3.6 cm x 1.4 cm x 1.4 cm. Isthmus: No nodules. Normal. 0.27 cm in thickness. US/US thyroid [id number] IMPRESSION: Unremarkable thyroid.
[2023-05-04] MEDS: iohexol 350 mg/mL 500 mL Btl (per mL) IV ×2 (10:08)
--- NOTE | 2023-05-04 10:33 | PM.PN ---
Subjective Subjective: Awaiting fungal cultures. Patient laying in bed appearing comfortable at this time. Saturating 97% on room air. Tachycardic however denies the feeling of palpitations. INR 2.29, D-dimer 0.59. He went for CT lumbar and thoracic spine this morning. Results are pending. Patient's heart rate went up to 150 overnight and received 150 amiodarone push. TSH 6, free T41.91. Vitals/I&O/Wt Last Vital Signs Temp 98.7 F 05/04/23 08:00 Pulse 109 H 05/04/23 08:00 Resp 16 05/04/23 08:00 BP 98/54 05/04/23 08:00 Pulse Ox 94 05/04/23 08:00 O2 Del Method Room Air 05/04/23 08:00 O2 Flow Rate 2 05/01/23 08:29 05/03/23 05/04/23 05/04/23 22:59 06:59 14:59 Intake Total 1369.717 / 3539.717 Output Total 900 / 900 Balance -900 / 1270 1369.717 / 2639.717 Weight last 48 hrs Weight 60.328 kg Weight 62.227 kg Physical Exam Narrative: Laying in bed Currently on room air No new focal deficits Kelly catheter in place S1, S2 sinus tachycardia abd soft skin on dependent areas is flaky and peeling off Urinary Catheter Management: Kelly: Cath Placed During This Visit: yes, but has since been removed by the nurse Reason for Continuing Indwelling Catheter: Decision to DC Catheter Urinary Catheter Date of Insertion: 04/06/23 Urinary Catheter Time of Insertion: 20:36 Date Urinary Catheter Removed: 05/03/28 Time Urinary Catheter Discontinued: 22:00 Data 05/04/23 05:04 05/04/23 05:04 Micro: Microbiology 05/03/23 22:34 Blood Culture - Preliminary Blood SPECIMEN COLLECTED 05/03/23 22:31 Blood Culture - Preliminary Blood SPECIMEN COLLECTED 04/29/23 19:41 Legionella Urinary Antigen - Final Urine Catheterized Urine Culture - Final Jessika zeylanoides A&P Assessment and plan (1) Hypokalemia: (2) Dehydration: (3) Sinus tachycardia: (4) Intractable epilepsy: (5) Encephalopathy acute: (6) C. difficile colitis: (7) Difficulty swallowing: (8) Pancolitis: (9) Protein-energy malnutrition: (10) Coffee ground emesis: (11) Sepsis: Plan Continue TPN We will check magnesium phosphorus triglyceride and CMP tomorrow Replenish magnesium Patient has been refusing p.o. medications and has very poor oral intake Awaiting guardianship documentation and court date from mother Sinus tachycardia no signs of PE or DVT talked with patient's mom, she is requesting transfer to [facility]. talked with [facility], they declined to accept transfer at this time due to it being a lateral transfer. She is undecided on the peg tube Breakthrough seizure Discussed with Dr. Amado, neurology. She has adjusted antiepileptic doses. Family states they DO NOT want Dr. Amado to see their son. Continue keppra 1000 bid continue vimpat 200 bid check kepra level Pt has been seizure free on above regimen #Skin Rash on Back - Rash present on dependent areas with skin peeling off - Hydrocortisone 1% ordered for itching - Frequent position encouraged. Pt refuses to work with therapy. #Diarrhea - improved - check lactic acid, normal - order c.diff , stool culture, sample obtained - had 1 bm overnight. - hold off on abx - CT abd pelvis reviewed, no changes. Patient refuses to work with PT. I believe patient's poor intake is secondary to choice and him being a picky eater, i dont think its due to other cause. However we will still go ahead and do a barium swallow as per family request in AM. Discussion needs to take place with family after MBS regarding PEG tube vs hospice. TPN is not sustainable intermediate designer and carries a risk of infection (i did explain this to the family). Family will be coming in on Friday for another family meeting. #Hypotension #sinus tachycardic - BP 96/41 earlier - ordered NS 500 CC bolus - Recheck BP after bolus. COntinue to monitor - Continue metoprolol 50 q8 hours. Stop metoprolol. We will place on propanolol 10 twice daily. - Check EKG - shows sinus tachycardia ? Received 150 amiodarone push last night. #Hypothyroidism TSH 6.0 Free T41.91. I will dose reduce levothyroxine to 50 daily. urine culture positive for jessika zeylanoides kelly removed yesterday check blood culture for fungal cultures stop fluconazole continue micafungin 100 mg q24H crp 14 esr 45 Full Code Attestations Medical Necessity Statement*: Awaiting guardianship and placement Diagnoses Hypokalemia E87.6 Dehydration E86.0 Sinus tachycardia R00.0 Intractable epilepsy G40.919 Encephalopathy acute G93.40 C. difficile colitis A04.72 Difficulty swallowing R13.10 Pancolitis K51.00 Protein-energy malnutrition E46 Coffee ground emesis K92.0 Sepsis A41.9
[2023-05-04 11:46] LABS: Glucose Point of Care 102 mg/dL (70-110)
[2023-05-04] MEDS: levETIRAcetam 1,000 MG/100 ML PREMIX 400 MG IV ×2 (12:01→22:31)
[2023-05-04 16:31] LABS: Glucose Point of Care 112 mg/dL (70-110)
[2023-05-04] MEDS: propranolol 20 mg Tablet 10 MG PO (17:12)
[2023-05-05] VITALS (9 sets, daily range): BP systolic 106–116; BP diastolic 54–87; PULSE 103–129; RESP 15–18; TEMP 36.4–36.7; O2SAT 93–98
[2023-05-05] MEDS: micafungin 100 MG in sodium chloride 0.9% (plus) 100 ML IV (00:50)
[2023-05-05 01:30] LABS: Glucose Point of Care 108 mg/dL (70-110)
[2023-05-05] MEDS: heparin 5,000 unit/mL INJ 1 mL 5000 UNIT SUBCUT ×2 (03:07→15:12)
[2023-05-05] MEDS: AA-Dex 4.25%-5% w/Lytes 1,000 ML 83 ML IV ×2 (05:03→17:22)
[2023-05-05] MEDS: levothyroxine 75 mcg Tablet 50 MCG PO (05:10)
[2023-05-05] MEDS: sertraline 100 mg Tablet 50 MG PO (05:11)
[2023-05-05] MEDS: propranolol 20 mg Tablet 10 MG PO ×2 (05:11→17:22)
[2023-05-05 06:17] LABS: Anion Gap 16.2 (5-19); Blood Urea Nitrogen 10 mg/dL (6-20); Calcium 9.9 mg/dL (8.5-10.5); Carbon Dioxide 26 mmol/L (22-29); Chloride 97 mmol/L (98-107); Glomerular Filtration Rate 588.1 mL/min (90-130); Glucose 108 mg/dL (65-115); Magnesium 1.7 mg/dL (1.7-2.3); Osmolality Calculated 280 mOsm/kg (285-295); Potassium 4.2 mmol/L (3.5-5.1); Sodium 135 mmol/L (136-145)
[2023-05-05 06:43] LABS: Glucose Point of Care 116 mg/dL (70-110)
--- NOTE | 2023-05-05 08:00 | FL_ITS ---
WS: [id number] MODIFIED BARIUM SWALLOW HISTORY: Oral dysphagia FLUOROSCOPY TIME: 1min [id number] # of spot films: 1 Modified barium swallow was performed by the speech pathologist. Fluoroscopy was provided with the pa tient in a lateral projection. Multiple food consistencies were provided. Patient follows all food consistencies without difficulty. There is mild spillage into the piriform s inuses with difficulty clearing the piriform sinuses with additional swallowing. No aspiration or lar yngeal penetration. Barium tablet was swallowed without difficulty. IMPRESSION: No laryngeal aspiration or penetration. Please see speech therapist report also for recommendations.
[2023-05-05] MEDS: levETIRAcetam 1,000 MG/100 ML PREMIX 400 MG IV ×2 (10:30→21:52)
[2023-05-05 12:44] LABS: Glucose Point of Care 109 mg/dL (70-110)
[2023-05-05 16:46] LABS: Glucose Point of Care 112 mg/dL (70-110)
--- NOTE | 2023-05-05 16:47 | PM.PN ---
Subjective Subjective: Chart reviewed extensively. Mother is at bedside today, asking me when that can be completed. Results of modified barium swallow currently pending. Medications: Reviewed: Yes Vitals/I&O/Wt Last Vital Signs Temp 98.1 F 05/05/23 12:00 Pulse 103 H 05/05/23 12:00 Resp 15 05/05/23 12:00 BP 108/71 05/05/23 12:00 Pulse Ox 96 05/05/23 12:00 O2 Del Method Room Air 05/05/23 12:00 O2 Flow Rate 2 05/01/23 08:29 05/05/23 05/05/23 05/05/23 06:59 14:59 22:59 Intake Total 1082.167 / 2402.167 100 / 100 Balance 1082.167 / 2402.167 100 / 100 Weight last 48 hrs Weight 60.328 kg Weight 60.328 kg Physical Exam Narrative: General: Awake, alert, however extremely slow to respond to questions. HEENT: PERRLA, pupils bilaterally equal and reactive, pallors not present Chest: Normal vesicular breath sounds, no added sounds, equal good air entry bilaterally CVS: S1-S2 regular, no murmurs, no tachycardia, no gallops, no rubs Abdomen: Soft, nontender, no organomegaly, bowel sounds present Urinary Catheter Management: Winslow: Cath Placed During This Visit: yes, but has since been removed by the nurse Reason for Continuing Indwelling Catheter: Decision to DC Catheter Urinary Catheter Date of Insertion: 04/06/23 Urinary Catheter Time of Insertion: 20:36 Date Urinary Catheter Removed: 05/03/28 Time Urinary Catheter Discontinued: 22:00 Data 05/07/23 05:55 05/06/23 05:51 Micro: Microbiology 05/03/23 22:34 Blood Culture - Preliminary Blood NEGATIVE TO DATE 05/03/23 22:31 Blood Culture - Preliminary Blood NEGATIVE TO DATE 04/29/23 19:56 Blood Culture - Final Blood NO GROWTH AFTER 5 DAYS 04/29/23 19:52 Blood Culture - Final Blood NO GROWTH AFTER 5 DAYS A&P Assessment and plan (1) Sinus tachycardia: (2) Intractable epilepsy: (3) C. difficile colitis: (4) Difficulty swallowing: (5) Protein-energy malnutrition: Plan Hussein Man is a 22 year old male who is mentally challenged with developmental delay.? Patient has a history of intractable epilepsy. He was recently admitted here for UTI and intractable seizures. His current hospitalization dates back to April 06, 2023 at which time he had presented with C. difficile diarrhea for which she has been treated. He has had a prolonged hospital admission due to his fluctuating mental status. According to the mother patient has deteriorated significantly since February 2023. He is currently not taking any oral intake, refuses to eat most meals. Has been losing weight steadily. There is also additional issue of guardianship. Patient has himself has been refusing most interventions, however it does not appear he has capacity to make these decisions at this time. His mother is in the process of getting guardianship, upcoming court date on May 09, 2023. Active issues as follows. #C. difficile colitis No active diarrhea Previously treated during this admission. Completed course of oral vancomycin. Closely monitor for any recurrence of symptoms. #Progressive neurological decline. At baseline patient is mentally challenged with developmental delay. Per pratik rhe was fairly independent, used to ambulate until February 2023 when he started having breakthrough seizures. At this present time patient is able to speak a few words in conversation, however unable to hold a sentence together. He is able to answer his name, speech is slow and slurred. Will attempt to discuss patient with his outpatient neurologist to estbalish baseline. MRI and MRA of the head performed during this admission were negative for any acute stroke. He does not walk currently, refuses to participate with physical therapy. We do not have the capability for video EEG monitoring at our center. Patient currently refuses to eat. A modified barium swallow was performed to assess for any aspiration or other swallowing difficulties which would impair his eating. On 05/05 multiple food consistencies were tolerated without difficulty. There was mild spillage into the piriform sinuses with difficulty clearing however there were no cadence signs of aspiration or laryngeal penetration. Patient has also been noted to be eating chicken nuggets and foods he likes during this admission but refuses to eat other meals. He is on TPN currently for this reason with plans for PEG to maintain his caloric intake. Neurology consult was initially obtained with Dr. Sánchez, thereafter call switched to Dr. Amado, patient and family adamantly refused to be seen by Dr. Amado. Patient and his family requested a transfer to [facility] so that they could be assessed by his regular neurologist home they trust, however transfers was not accepted when the previous hospitalist called them over the weekend. #Malnutrition, inadequate caloric intake Currently on TPN Plans for PEG once guardianship is established. I do not believe patient has capacity to make these decisions at this time. His mother is agreeable for PEG tube #Sinus tachycardia. Currently on propanolol for the same. Heart rate ranging mostly in the 100 range. Additional metoprolol added, will uptitrate today should his blood pressure tolerate. TSH 6.0, levothyroxine dose was adjusted to 50mcg daily He is afberile check echocardiogram DVT ppx: heparin,change to once daily lovenox for patient comfort Full code Attestations Medical Necessity Statement*: pending appropriate disposition Coding Level of Care Code Acute Code for Chg Fwd Diagnoses Sinus tachycardia R00.0 Intractable epilepsy G40.919 C. difficile colitis A04.72 Difficulty swallowing R13.10 Protein-energy malnutrition E46
--- NOTE | 2023-05-05 19:33 | PC.NURSE ---
dressing to left inner foot changed, thick green drainage pocketed on top of wound, no odor noted, wound cleaned and new dressing applied. pt denied having BM to day, per report pt has had BM today. denied pain or nausea. watching TV, refused oral intake offered (food and drink) educated about repositioning, pt resistive with idea of turning side to side, explained need for positioning considering open areas to bilat buttocks, continue to state NO .
[2023-05-06] VITALS (8 sets, daily range): BP systolic 95–137; BP diastolic 53–82; PULSE 106–129; RESP 15–20; TEMP 36.6–36.9; O2SAT 93–97
[2023-05-06 00:57] LABS: Glucose Point of Care 105 mg/dL (70-110)
[2023-05-06] MEDS: heparin 5,000 unit/mL INJ 1 mL 5000 UNIT SUBCUT ×2 (01:39→15:15)
[2023-05-06] MEDS: micafungin 100 MG in sodium chloride 0.9% (plus) 100 ML IV (01:39)
[2023-05-06] MEDS: propranolol 20 mg Tablet 10 MG PO (04:21)
[2023-05-06 08:22] LABS: Glucose Point of Care 118 mg/dL (70-110)
[2023-05-06 08:28] LABS: Alanine Aminotransferase 56 U/L (0-41); Albumin Level 3.5 g/dL (3.5-5.2); Alkaline Phosphatase 102 U/L (40-130); Anion Gap 16.2 (5-19); Aspartate Amino Transferase 24 U/L (0-40); Blood Urea Nitrogen 12 mg/dL (6-20); Calcium 9.7 mg/dL (8.5-10.5); Carbon Dioxide 26 mmol/L (22-29); Chloride 96 mmol/L (98-107); Glomerular Filtration Rate 204.3 mL/min (90-130); Glucose 114 mg/dL (65-115); Osmolality Calculated 279 mOsm/kg (285-295); Phosphorus 4.4 mg/dL (2.5-4.5); Potassium 4.2 mmol/L (3.5-5.1); Sodium 134 mmol/L (136-145); Total Bilirubin 0.3 mg/dL (0.15-1.2); Total Protein 6.5 g/dL (6.6-8.7)
[2023-05-06] MEDS: levETIRAcetam 1,000 MG/100 ML PREMIX 400 MG IV ×2 (10:36→23:00)
--- NOTE | 2023-05-06 11:26 | USCV_ITS ---
Hussein Man Age: 22 Gender: M : 2000 Exam Date: 05/06/2023 15:51 Ordering Phys: Pat Leon MD Technologist: Donovan East Exam Location: [facility] Indication: VENT TACH BP: 132 / 75 HR: 121 Rhythm: Sinus Technical Quality: Adequate MEASUREMENTS (Male / Female) Normal Values 2D ECHO LV Diastolic Diameter PLAX 3.2 cm 4.2 - 5.9 / 3.9 - 5.3 cm LV Systolic Diameter PLAX 2.4 cm IVS Diastolic Thickness 1.0 cm 0.6 - 1.0 / 0.6 - 0.9 cm IVS Systolic Thickness 1.1 cm LVPW Diastolic Thickness 1.0 cm 0.6 - 1.0 / 0.6 - 0.9 cm LVPW Systolic Thickness 1.1 cm LVOT Diameter 2.0 cm LV Ejection Fraction 2D Teich 51.1 % LV Ejection Fraction MOD 2C 61.0 % LV Ejection Fraction 2C AL 61.9 % LA Diameter 3.0 cm M-MODE Aortic Annulus Diameter 2.8 cm LA Ao Ratio MM 1.1 MV E Point Septal Separation 0.9 cm DOPPLER AV Peak Velocity 115.0 cm/s LVOT Peak Velocity 74.0 cm/s AV Area Cont Eq vti 2.2 cm squared AV Area Cont Eq pk 2.0 cm squared MV Area PHT 16.9 cm squared Mitral E to A Ratio 1.5 MV E' Velocity 34.5 cm/s Mitral E to MV E' Ratio 11.5 Mitral E to LV E' Lateral Ratio 9.8 Mitral E to LV E' Septal Ratio 14.4 TR Peak Velocity 111.0 cm/s TR Peak Gradient 4.9 mmHg TV Peak E Velocity 88.0 cm/s Right Atrial Pressure 3.0 mmHg Pulmonary Artery Systolic Pressu 7.9 mmHg RV Acceleration Time 0.2 s FINDINGS Left Ventricle Normal left ventricular size. There is no LVH. LV systolic function is mild to moderately reduced with LVEF at 45-50% with mid anterior and anteroseptal hypokinesis. Right Ventricle Normal right ventricular size and systolic function. Right Atrium Normal right atrial size. Left Atrium Normal left atrial size. Mitral Valve Structurally normal mitral valve. No mitral valve regurgitation. Aortic Valve Structurally normal trileaflet aortic valve. Tricuspid Valve Structurally normal tricuspid valve. Trace tricuspid valve regurgitation. Pulmonic Valve Structurally normal pulmonic valve. Trace pulmonary valve regurgitation. Pericardium No pericardial effusion. Aorta Normal size aortic root and proximal ascending aorta. IVC Normal IVC dimension with >50% respiratory change of the inferior vena cava. CONCLUSIONS LV systolic function mild to moderately reduced with LVEF estimated at 45-50% with mid anterior and anteroseptal hypokinesis. No significant valvular abnormality noted. Normal chamber sizes. Normal right heart and pulmonary pressures. Miriam Marcus MD (Electronically Signed) Final Date: 07 May 2023 09:32 S
[2023-05-06 14:14] LABS: Glucose Point of Care 105 mg/dL (70-110)
--- NOTE | 2023-05-06 14:33 | P.CONIM_ITS ---
Providers/Reason For Consult 2 Consulting Physician/Specialty*: General surgery Reason for Consult*: PEG tube placement Attending Physician: Pat Leon MD Primary Care Provider: SPENSER Quezada History of Present Illness History of Present Illness Hussein Man is a 22 year old male with history of epilepsy and C. difficile colitis who is known to my service as I have evaluated him during this hospitalization during the acute phase of his C. difficile colitis. I have been consulted to evaluate for possible PEG tube placement as patient is severely malnourished and refuses to eat. Patient has been noted to have colonic tissue difficulties and is unclear if he has a capacity to decide on his medical care. Currently he is on the process of guardianship by his parents. During my examination he is unable to provide much of a history but he is adamant that he will not want any kind of intervention. Review of Systems 2 General: Reports: ROS unobtainable due to medical condition Medications/Allergies Home Medications Medication Instructions Recorded Confirmed Last Taken Type albuterol sulfate 90 mcg/actuation 1 inh inhalation QID PRN Shortness 11/12/21 04/13/23 Unknown History aerosol inhaler (ProAir HFA) Of Breath triamcinolone acetonide 0.1 % 1 applic topical BID 14 days #80 02/19/23 04/13/23 Unknown Rx topical cream grams acetaminophen 500 mg tablet 1,000 mg PO Q6H PRN Pain 03/03/23 04/13/23 Unknown History cetirizine 10 mg tablet 10 mg PO QAM 03/03/23 04/13/23 04/06/23 History fluticasone propionate 50 2 spray intranasal DAILY PRN 03/03/23 04/13/23 Unknown History mcg/actuation nasal Allergy Symptoms spray,suspension (Flonase Allergy Relief) montelukast 10 mg tablet 10 mg PO BEDTIME 03/03/23 04/13/23 04/06/23 History sertraline 100 mg tablet 100 mg PO QAM 03/03/23 04/13/23 04/06/23 History trazodone 50 mg tablet 100 mg PO BEDTIME PRN insomnia 03/03/23 04/13/23 04/06/23 History diazepam 5 mg/spray (0.1 mL) nasal 5 mg (0.1 mL) intranasal Q4H PRN 03/19/23 04/13/23 Unknown Rx spray (Valtoco) Seizure #2 sprays levetiracetam 100 mg/mL oral 500 mg (5 mL) PO BID 30 days #300 03/19/23 04/13/23 04/06/23 Rx solution mL levothyroxine 75 mcg tablet 75 mcg PO QAM 04/07/23 04/13/23 04/06/23 History pantoprazole 40 mg tablet,delayed 40 mg PO QAM 04/07/23 04/13/23 04/06/23 History release Allergies Allergy/AdvReac Type Severity Reaction Status Date / Time No Known Allergies Allergy Verified 04/13/23 12:29 Current Medications Generic Name Dose Route Start Last Admin Trade Name Freq PRN Reason Stop Dose Admin Albuterol Sulfate 2.5 mg 04/07/23 03:07 04/12/23 16:05 Albuterol 2.5 Mg/3 Ml Neb NEBULIZER 2.5 mg QID.RESPIRATORY PRN Administration SHORTNESS OF BREATH Calamine 1 applic 04/26/23 10:12 04/26/23 10:39 Calamine Lotion 177 Ml Btl TOPICAL 1 applic Q4H PRN Administration ITCHING Heparin Sodium (Porcine) 5,000 unit 04/21/23 14:15 05/06/23 01:39 Heparin 5,000 Unit/Ml Inj 1 Ml SUBCUT 5,000 unit Q12H BUD Administration AA-Dex 4.25%-5% w/Lytes 1,000 mls @ 83 mls/hr 04/25/23 16:00 05/06/23 14:28 Clinimix E 4.25%-5% IV Not Given .Q12H3M BUD Levetiracetam 1,000 mg in 100 mls @ 400 mls/hr 04/30/23 22:30 05/06/23 11:36 Keppra IV Infused Q12H BUD Infusion Lanolin 1 applic 04/22/23 03:00 04/22/23 05:28 Lanolin Oint 7 Gm TOPICAL 1 applic PRN PRN Administration DRYNESS Levothyroxine Sodium 50 mcg 05/05/23 06:00 05/06/23 14:30 Levothyroxine 75 Mcg Tablet PO Not Given QAM BUD Ondansetron HCl 4 mg 04/06/23 22:47 04/20/23 01:53 Ondansetron 2 Mg/Ml Sdv 2 Ml IVP 4 mg Q8H PRN Administration vomiting, or N/V if npo Propranolol HCl 10 mg 05/04/23 17:15 05/06/23 14:29 Propranolol 20 Mg Tablet PO Not Given Q12H BUD Sertraline HCl 50 mg 04/18/23 06:00 05/06/23 14:30 Sertraline 100 Mg Tablet PO Not Given QAM BUD PFSH Acute 2 PFSH: Medical History (Updated 04/26/23 @ 08:25 by Lindsay Avalos MD) Autism MDD (major depressive disorder) Tinea cruris Rash Self neglect Declining functional status Abnormal urinalysis Volvulus of intestine Partial small bowel obstruction Shock Acute hypokalemia Acute hypotension Altered mental status Intractable epilepsy Bicytopenia Generalized weakness Anemia Breakthrough seizure Hallux valgus (acquired) Chest pain Vitamin B12 deficiency Allergic rhinitis Vitamin D deficiency Urinary incontinence Hypothyroid Lt inguinal pain Intellectual disability Nicotine dependence, chewing tobacco, uncomplicated Muscle cramps Bilateral foot pain Panic disorder Psychiatric care Hyperglycemia Chronic GERD Difficulty swallowing Anxiety Hearing loss in left ear Fever Encounter for screening for COVID-19 Mid back pain on left side Hemoptysis Constipation, chronic Benign tumor of pituitary gland Asthma Seasonal allergies Seizures Acute cystitis Gross hematuria Asthma Surgical History History of tonsillectomy and adenoidectomy Hx of hernia repair Family History Father Heart disease Social History Smoking and tobacco/nicotine status: current every day tobacco/nicotine user smokeless tobacco Smokeless tobacco user: chewing tobacco Smokeless tobacco details: One can/Day Quit status (tobacco/nicotine): not considering quitting Second hand smoke exposure: No Alcohol intake: never Substance/Drug Use: never Caregiver/support person: No Lives independently: No Household members: family Marital status: Single service: No Current occupational status: disabled Current gender identity: Male Vitals/I&O/Wt Last Vital Signs Temp 97.9 F 05/06/23 12:00 Pulse 110 H 05/06/23 12:00 Resp 17 05/06/23 12:00 BP 137/72 05/06/23 12:00 Pulse Ox 93 05/06/23 12:00 O2 Del Method Room Air 05/06/23 12:00 O2 Flow Rate 2 05/01/23 08:29 05/05/23 05/06/23 05/06/23 22:59 06:59 14:59 Intake Total 1220 / 1320 100 / 1420 100 / 100 Balance 1220 / 1320 100 / 1420 100 / 100 Weight last 48 hrs Weight 133 lb Physical Exam 2 Narrative: Patient appears severely debilitated, malnourished Chest: Equal chest rise bilaterally Abdomen: Abdomen is soft, nontender, nondistended. Urinary Catheter Management: Winslow: Cath Placed During This Visit: yes, but has since been removed by the nurse Reason for Continuing Indwelling Catheter: Decision to DC Catheter Urinary Catheter Date of Insertion: 04/06/23 Urinary Catheter Time of Insertion: 20:36 Date Urinary Catheter Removed: 05/03/28 Time Urinary Catheter Discontinued: 22:00 Data 05/04/23 05:04 05/06/23 05:51 Micro: Microbiology 05/01/23 05:36 E. coli Shiga-like Toxin (PCR) - Final Stool Salmonella/Shigella Culture - Final Campylobacter (PCR) - Final A&P Assessment and plan (1) Hypokalemia: (2) Dehydration: (3) Intractable epilepsy: (4) Encephalopathy acute: (5) C. difficile colitis: (6) Protein-energy malnutrition: Plan After complete history, physical examination and review of all available clinical data the following is my assessment. I agree that patient may benefit from PEG tube placement for long-term nutrition that he refuses to eat. At this time when he was approached regarding surgical intervention he is very adamant that he is does not want to have any intervention done. It is not clear if he has enough capacity to understand the severity of his condition. At the moment we are waiting for guardianship court for hearing for his parents to become guardian's. I will recommend that at this moment we obtain a capacity assessment either by primary team or psychiatry in order to determine his capacity make medical decisions, if he is deemed him capable of deciding for his medical care I will be willing to proceed with PEG tube placement after obtaining consent from the parents. If we are unable to obtain a capacity assessment, the second option is to wait until the guardianship papers are done in order to proceed. I will continue to follow. Coding Level of Care Code 66155 Diagnoses Hypokalemia E87.6 Dehydration E86.0 Intractable epilepsy G40.919 Encephalopathy acute G93.40 C. difficile colitis A04.72 Protein-energy malnutrition E46
[2023-05-06] MEDS: AA-Dex 4.25%-5% w/Lytes 1,000 ML 83 ML IV ×2 (15:11→15:15)
--- NOTE | 2023-05-06 16:32 | P.PN_ITS ---
Subjective 2 Subjective: Barium swallow completed yesterday did not show any obvious aspiration or swallowing difficulties. No acute interim events in the meantime. Medications: Reviewed: Yes Vitals/I&O/Wt Last Vital Signs Temp 97.9 F 05/06/23 12:00 Pulse 110 H 05/06/23 12:00 Resp 17 05/06/23 12:00 BP 137/72 05/06/23 12:00 Pulse Ox 93 05/06/23 12:00 O2 Del Method Room Air 05/06/23 12:00 O2 Flow Rate 2 05/01/23 08:29 05/06/23 05/06/23 05/06/23 06:59 14:59 22:59 Intake Total 100 / 1420 100 / 100 5.533 / 105.533 Balance 100 / 1420 100 / 100 5.533 / 105.533 Weight last 48 hrs Weight 60.328 kg Physical Exam 2 Narrative: General: Awake, alert, however extremely slow to respond to questions. HEENT: PERRLA, pupils bilaterally equal and reactive, pallors not present Chest: Normal vesicular breath sounds, no added sounds, equal good air entry bilaterally CVS: S1-S2 regular, no murmurs, no tachycardia, no gallops, no rubs Abdomen: Soft, nontender, no organomegaly, bowel sounds present Urinary Catheter Management: Winslow: Cath Placed During This Visit: yes, but has since been removed by the nurse Reason for Continuing Indwelling Catheter: Decision to DC Catheter Urinary Catheter Date of Insertion: 04/06/23 Urinary Catheter Time of Insertion: 20:36 Date Urinary Catheter Removed: 05/03/28 Time Urinary Catheter Discontinued: 22:00 Data 05/07/23 05:55 05/06/23 05:51 Micro: Microbiology 05/01/23 05:36 E. coli Shiga-like Toxin (PCR) - Final Stool Salmonella/Shigella Culture - Final Campylobacter (PCR) - Final A&P Assessment and plan (1) Sinus tachycardia: (2) Intractable epilepsy: (3) C. difficile colitis: (4) Difficulty swallowing: (5) Protein-energy malnutrition: Plan Hussein Man is a 22 year old male who is mentally challenged with developmental delay.? Patient has a history of intractable epilepsy. He was recently admitted here for UTI and intractable seizures. His current hospitalization dates back to April 06, 2023 at which time he had presented with C. difficile diarrhea for which she has been treated. He has had a prolonged hospital admission due to his fluctuating mental status. According to the mother patient has deteriorated significantly since February 2023. He is currently not taking any oral intake, refuses to eat most meals. Has been losing weight steadily. There is also additional issue of guardianship. Patient has himself has been refusing most interventions, however it does not appear he has capacity to make these decisions at this time. His mother is in the process of getting guardianship, upcoming court date on May 09, 2023. Active issues as follows. #C. difficile colitis No active diarrhea Previously treated during this admission. Completed course of oral vancomycin. Closely monitor for any recurrence of symptoms. #Progressive neurological decline. At baseline patient is mentally challenged with developmental delay. I called and discussed his case extensively with his outpatient neurologist Dr. Bustos who practices at [place]. It appears as recently as September patient was able to hold a conversation, was able to play video games, was able to ambulate independently and even played some sports. Mother reports that he stopped doing that in February 2023 when he developed breakthrough persistent seizures. He was thought to be having subclinical seizures contributing to his progressive neurological decline. At this present time patient is able to speak a few words in conversation, however unable to hold a sentence together. He is able to answer his name, speech is slow and slurred. MRI and MRA of the head performed during this admission were negative for any acute stroke. He does not walk currently, refuses to participate with physical therapy. CT of the lumbar and thoracic spine was performed which showed an incidental 10 mm x 3 mm x 2 mm focal enhancement at the left spinal cord at the T10 level thought to be inflammatory versus neoplastic. There was no gross signs of cord compression. Will obtain MRI to better characterize. We do not have the capability for video EEG monitoring. Patient currently refuses to eat. A modified barium swallow was performed to assess for any aspiration or other swallowing difficulties which would impair his eating. On 112 multiple food consistencies were tolerated without difficulty. There was mild spillage into the piriform sinuses with difficulty clearing however there were no cadence signs of aspiration or laryngeal penetration. Patient has also been noted to be eating chicken nuggets and foods he likes during this admission but refuses to eat other meals. He is on TPN currently for this reason with plans for PEG to maintain his caloric intake. Neurology consult was initially obtained with Dr. Sánchez, thereafter called switch to Dr. Amado, patient and family adamantly refused to be seen by Dr. Amado. Patient and his family requested a transfer to [facility] so that they could be assessed by his regular neurologist home they trust, however transfers was not accepted when the previous hospitalist called them over the weekend. We might try to attempt this again tomorrow as his neurologist is willing to see him in consult if he gets accepted at [facility]. #Malnutrition, inadequate caloric intake Currently on TPN Plans for PEG once guardianship is established. I do not believe patient has capacity to make these decisions at this time. His mother is agreeable for PEG tube #Sinus tachycardia. Currently on propanolol for the same. Heart rate ranging mostly in the 100 range. Additional metoprolol added, will uptitrate today should his blood pressure tolerate. TSH 6.0, levothyroxine dose was adjusted to 50mcg daily He is afberile DVT ppx: heparin,change to once daily lovenox for patient comfort Full code Attestations 2 Medical Necessity Statement*: appropriate disposition planning Coding Level of Care Code Acute Code for Chg Fwd Diagnoses Sinus tachycardia R00.0 Intractable epilepsy G40.919 C. difficile colitis A04.72 Difficulty swallowing R13.10 Protein-energy malnutrition E46
[2023-05-06 17:27] LABS: Glucose Point of Care 109 mg/dL (70-110)
[2023-05-06 23:57] LABS: Glucose Point of Care 106 mg/dL (70-110)
[2023-05-07] VITALS (10 sets, daily range): BP systolic 101–135; BP diastolic 64–90; PULSE 98–136; RESP 15–17; TEMP 36.5–37.7; O2SAT 93–98
[2023-05-07] MEDS: heparin 5,000 unit/mL INJ 1 mL 5000 UNIT SUBCUT ×2 (01:54→14:13)
[2023-05-07] MEDS: AA-Dex 4.25%-5% w/Lytes 1,000 ML 83 ML IV ×3 (03:27→22:01)
[2023-05-07] MEDS: propranolol 20 mg Tablet 10 MG PO (04:31)
[2023-05-07 06:10] LABS: Glucose Point of Care 107 mg/dL (70-110)
[2023-05-07 06:40] LABS: Basophils # 0.1 10^3/uL (0.0-0.1); Basophils % 0.7 %; Eosinophils # 0.1 10^3/uL (0.0-0.8); Eosinophils % 1.1 %; Hematocrit 35.1 % (37-53); Lymphocytes # 0.8 10^3/uL (0.8-4.8); Lymphocytes % 8.5 %; Mean Corpuscular HGB Conc 32.2 g/dL (30-55); Mean Corpuscular Hemoglobin 30.8 pg (27-33); Mean Corpuscular Volume 95.6 fl (82-101); Mean Platelet Volume 11.1 fL (7.4-10.4); Monocytes # 0.9 10^3/uL (0.2-0.9); Monocytes % 9.7 %; Neutrophils # 7.08 10^3/uL (1.8-7.7); Neutrophils % 79.3 %; Nucleated Red Blood Cells % 0 %; Platelet Count 373 10^3/cmm (157-399); Red Blood Count 3.67 10^6/uL (3.85-5.65); Red Cell Distribution Width 15.2 % (12.1-15.1); White Blood Count 8.93 10^3/uL (3.29-11.43)
--- NOTE | 2023-05-07 09:30 | MR_ITS ---
WS: [id number] MRI THORACIC SPINE with and without contrast. HISTORY: inflammatory vs neoplastic lesion on CT thoracic spine COMPARISON: CT thoracic spine 05/04/2023 TECHNIQUE: Multiplanar sequences are performed in sagittal and axial planes. MultiHance 10 mL IV. Study is extremely limited by motion artifact. All sequences are significantly degraded by motion. Mi ld curvature of the thoracic spine. There is no obvious cord compression. No cord enlargement. This study is not adequate to exclude subtle masses or signal abnormality or abscess. IMPRESSION: Nondiagnostic evaluation to exclude mass or abscess. No cord compression of any significance identifi ed.
[2023-05-07] MEDS: gadobenate dimeglumine 20 mL vial IV (11:12)
[2023-05-07] MEDS: levETIRAcetam 1,000 MG/100 ML PREMIX 400 MG IV ×2 (11:31→22:01)
[2023-05-07 11:51] LABS: Glucose Point of Care 107 mg/dL (70-110)
--- NOTE | 2023-05-07 17:16 | PM.PN ---
Subjective Subjective: MRI completed. Grossly limited by motion artifact. No signs of cord compression noted. No acute interval change. Medications: Reviewed: Yes Vitals/I&O/Wt Last Vital Signs Temp 97.8 F 05/07/23 12:00 Pulse 109 H 05/07/23 12:00 Resp 16 05/07/23 12:00 BP 120/82 05/07/23 12:00 Pulse Ox 97 05/07/23 12:00 O2 Del Method Room Air 05/07/23 08:49 O2 Flow Rate 2 05/01/23 08:29 05/07/23 05/07/23 05/07/23 06:59 14:59 22:59 Intake Total 1100 / 1205.533 100 / 100 1000 / 1100 Balance 1100 / 1205.533 100 / 100 1000 / 1100 Weight last 48 hrs Weight 58.712 kg Physical Exam Narrative: General: Awake, alert, however extremely slow to respond to questions. HEENT: PERRLA, pupils bilaterally equal and reactive, pallors not present Chest: Normal vesicular breath sounds, no added sounds, equal good air entry bilaterally CVS: S1-S2 regular, no murmurs, no tachycardia, no gallops, no rubs Abdomen: Soft, nontender, no organomegaly, bowel sounds present Urinary Catheter Management: Winslow: Cath Placed During This Visit: yes, but has since been removed by the nurse Reason for Continuing Indwelling Catheter: Decision to DC Catheter Urinary Catheter Date of Insertion: 04/06/23 Urinary Catheter Time of Insertion: 20:36 Date Urinary Catheter Removed: 05/03/28 Time Urinary Catheter Discontinued: 22:00 Data 05/07/23 05:55 05/06/23 05:51 A&P Assessment and plan (1) Sinus tachycardia: (2) Intractable epilepsy: (3) C. difficile colitis: (4) Difficulty swallowing: (5) Protein-energy malnutrition: Plan Hussein Man is a 22 year old male who is mentally challenged with developmental delay.? Patient has a history of intractable epilepsy. He was recently admitted here for UTI and intractable seizures. His current hospitalization dates back to April 06, 2023 at which time he had presented with C. difficile diarrhea for which she has been treated. He has had a prolonged hospital admission due to his fluctuating mental status. According to the mother patient has deteriorated significantly since February 2023. He is currently not taking any oral intake, refuses to eat most meals. Has been losing weight steadily. There is also additional issue of guardianship. Patient has himself has been refusing most interventions, however it does not appear he has capacity to make these decisions at this time. His mother is in the process of getting guardianship, upcoming court date on May 09, 2023. Active issues as follows. #C. difficile colitis No active diarrhea Previously treated during this admission. Completed course of oral vancomycin. Closely monitor for any recurrence of symptoms. #Progressive neurological decline. At baseline patient is mentally challenged with developmental delay. I discussed this patient extensively with his outpatient neurologist Dr. Bustos who was practices at [place]. It appears as recently as September patient was able to hold a conversation, was able to play video games, was able to ambulate independently and even played some sports. Mother reports that he stopped doing that in February 2023 when he developed breakthrough persistent seizures. He was thought to be having subclinical seizures contributing to his progressive neurological decline. At this present time patient is able to speak a few words in conversation, however unable to hold a sentence together. He is able to answer his name, speech is slow and slurred. MRI and MRA of the head performed during this admission were negative for any acute stroke. He does not walk currently, refuses to participate with physical therapy. CT of the lumbar and thoracic spine was performed which showed an incidental 10 mm x 3 mm x 2 mm focal enhancement at the left spinal cord at the T10 level thought to be inflammatory versus neoplastic. There was no gross signs of cord compression. MRI of the lumbar spine with contrast was performed today to further evaluate. Study was There is also the additional degraded by motion artifact, however no obvious signs of cord compression were noted. We do not have the capability for video EEG monitoring. Patient currently refuses to eat. A modified barium swallow was performed to assess for any aspiration or other swallowing difficulties which would impair his eating. On 1127 multiple food consistencies were tolerated without difficulty. There was mild spillage into the piriform sinuses with difficulty clearing however there were no cadence signs of aspiration or laryngeal penetration. Patient has also been noted to be eating chicken nuggets and foods he likes during this admission but refuses to eat other meals. He is on TPN currently for this reason with plans for PEG to maintain his caloric intake. Neurology consult was initially obtained with Dr. Sánchez, thereafter called switch to Dr. Amado, patient and family adamantly refused to be seen by Dr. Amado. Patient and his family requested a transfer to [facility] so that they could be assessed by his regular neurologist home they trust, however transfers was not accepted when the previous hospitalist called them over the weekend. We might try to attempt this again tomorrow as his neurologist is willing to see him in consult if he gets accepted at [place]. #Malnutrition, inadequate caloric intake Currently on TPN Plans for PEG once guardianship is established. I do not believe patient has capacity to make these decisions at this time. His mother is agreeable for PEG tube #Sinus tachycardia. Currently on propanolol for the same. Heart rate ranging mostly in the 100 range. Additional metoprolol added, will uptitrate today should his blood pressure tolerate. TSH 6.0, levothyroxine dose was adjusted to 50mcg daily He is afberile DVT ppx: heparin,change to once daily lovenox for patient comfort Full code Attestations Medical Necessity Statement*: Awaiting PEG placement and disposition planning. Coding Level of Care Code Acute Code for Chg Fwd Diagnoses Sinus tachycardia R00.0 Intractable epilepsy G40.919 C. difficile colitis A04.72 Difficulty swallowing R13.10 Protein-energy malnutrition E46
[2023-05-07 17:18] LABS: Glucose Point of Care 103 mg/dL (70-110)
--- NOTE | 2023-05-07 17:52 | PC.NURSE ---
Pt refused 1700 PO propranolol.
[2023-05-07 21:25] LABS: Fungitell 1-3-B Glucan Assay <31 pg/mL; Interpretation NEGATIVE
[2023-05-07] MEDS: metoprolol tartrate 1 mg/1 mL SDV 5 mL 2.5 MG IVP (22:37)
--- NOTE | 2023-05-07 23:19 | PC.NURSE ---
at 1999 pt repositioned and changed, pt resistive initially.
--- NOTE | 2023-05-07 23:22 | PC.NURSE ---
2200 pt repositioned, facial expressions indicated pain, pt denied pain. prn metoprolol used due to heart rate 140's-147. pt had been refusing oral meds
[2023-05-08] VITALS (13 sets, daily range): BP systolic 98–120; BP diastolic 60–87; PULSE 99–141; RESP 14–20; TEMP 36.1–38.5; O2SAT 94–98; BMI 22.6
--- NOTE | 2023-05-08 01:26 | PC.NURSE ---
diltiazem held per due to current BP of 98/60, vanc not given due to not available and waiting for pharmacy to open.
[2023-05-08] MEDS: enoxaparin 40 mg/0.4 mL Syringe SUBCUT (02:34)
[2023-05-08] MEDS: metoprolol tartrate 1 mg/1 mL SDV 5 mL 2.5 MG IVP (06:17)
[2023-05-08 07:55] LABS: Glucose Point of Care 107 mg/dL (70-110)
[2023-05-08 08:25] LABS: Fibrinogen Degradation Product <5 mcg/mL (LESS THAN 5)
[2023-05-08] MEDS: vancomycin 100 mg/1 mL Oral Syringe 125 MG PO ×3 (10:00→20:37)
[2023-05-08] MEDS: levETIRAcetam 1,000 MG/100 ML PREMIX 400 MG IV ×2 (10:01→22:47)
[2023-05-08] MEDS: AA-Dex 4.25%-5% w/Lytes 1,000 ML 83 ML IV ×2 (10:23→22:47)
--- NOTE | 2023-05-08 10:51 | PC.CHAP ---
Pastoral Care Encounter/Spiritual Assessment Type of Contact [] Declined senior php software developer visit [] Patient/Family/Request visit [] Outpatient visit [] Follow-up visit [] Physician referral [] Code/Alert [x] Routine visit [] Staff referral [] Actively dying [] Patient sleeping [] Family support [] [] Out of room [] Palliative care [] [x] Receiving care in room [] Pre-surgical visit [] Trauma [] Long length of stay [] ICU visit [] Other: Relational/Emotional Strength [x] Patient feels connected with others/family/visitors/staff [] Distress [] Loneliness/isolation [] Abandonment Spirituality of Patient [] Person of Lily [] Attends Mandaen of their Lily [] Believes in Prayer [] Reads Bible or Adventism materials [] There are Spiritual issues to be addressed Gynecological Assistant Interventions [] Prayer [] Active listening [] Non-anxious presence [] Spiritual/emotional support [] Crisis/trauma care [] Spiritual counseling [] Bereavement support [] Provided bereavement packet [] Provided Bible/devotional materials [] Provided toy/stuffed animal, coloring book to patient or family member [] Provided Communion [] Anointing/Beulah [] Salvation [] Completed spiritual assessment [] Other: Impact on Illness or Injury [] Angry [] Fearful [] Anxious [] Often cries [] Exhaustion [] Unable to work [] Unable to attend confucianist [] Unable to walk/stand [] Unable to read [] Unable to drive [] Unable to eat/drink [] Unable to sleep [] Unable to be with family [] Patient intubated [] Other: Summary he is sure about his health or what needs to be done Time spent with patient 10 mins
[2023-05-08 10:58] LABS: Glucose Point of Care 93 mg/dL (70-110)
[2023-05-08] MEDS: dilTIAZem 30 mg Tablet PO ×3 (12:21→22:53)
--- NOTE | 2023-05-08 12:42 | PC.NUTR ---
Once PEG access is obtained. Begin EN following RD recs below - Continuous: Jevity 1.2 @ 20 ml/hr and increase 20ml q8 until at goal of 60 ml/hr x24 hours - [facility]: 150 ml q8 If bolus is desired for discharge - Bolus: Jevity 1.2 @ 480 ml TID - [facility]: 150 ml q8 See most recent RD assessment for details
[2023-05-08 15:43] LABS: Adenovirus Not Detected (NOT DETECT); Chlamydia Pneumoniae Not Detected (NOT DETECT); Coronavirus 229E,HKU1,NL63,OC4 Not Detected (NOT DETECT); Human Metapneumovirus Not Detected (NOT DETECT); Human Rhinovirus/Enterovirus Not Detected (NOT DETECT); Influenza A Not Detected (NOT DETECT); Influenza A H1 Not Detected (NOT DETECT); Influenza A H1-2009 Not Detected (NOT DETECT); Influenza A H3 Not Detected (NOT DETECT); Influenza B Not Detected (NOT DETECT); Mycoplasma Pneumoniae Not Detected (NOT DETECT); Parainfluenza Virus Type 1 Not Detected (NOT DETECT); Parainfluenza Virus Type 2 Not Detected (NOT DETECT); Parainfluenza Virus Type 3 Not Detected (NOT DETECT); Parainfluenza Virus Type 4 Not Detected (NOT DETECT); Respiratory Syncytial Virus A Not Detected (NOT DETECT); Respiratory Syncytial Virus B Not Detected (NOT DETECT); SARS-COV-2 Not Detected (NOT DETECT)
--- NOTE | 2023-05-08 16:29 | P.PN_ITS ---
Subjective 2 Subjective: He is angry and upset. Refusing po medications , wishes to leave the room Medications: Reviewed: Yes Vitals/I&O/Wt Last Vital Signs Temp 97.7 F 05/08/23 16:00 Pulse 141 H 05/08/23 16:00 Resp 20 H 05/08/23 16:00 BP 118/77 05/08/23 16:00 Pulse Ox 95 05/08/23 16:00 O2 Del Method Room Air 05/08/23 08:00 O2 Flow Rate 2 05/01/23 08:29 05/08/23 05/08/23 05/08/23 06:59 14:59 22:59 Intake Total 1100 / 1100 Balance 1100 / 1100 Weight last 48 hrs Weight 58.117 kg Weight 58.712 kg Physical Exam 2 Narrative: General: Awake, alert, however uses minimal words in conversation , cachexic HEENT: PERRLA, pupils bilaterally equal and reactive, pallors not present Chest: Normal vesicular breath sounds, no added sounds, equal good air entry bilaterally CVS: S1-S2 regular, no murmurs, no tachycardia, no gallops, no rubs Abdomen: soft, non distended Urinary Catheter Management: Winslow: Cath Placed During This Visit: yes, but has since been removed by the nurse Reason for Continuing Indwelling Catheter: Decision to DC Catheter Urinary Catheter Date of Insertion: 04/06/23 Urinary Catheter Time of Insertion: 20:36 Date Urinary Catheter Removed: 05/03/28 Time Urinary Catheter Discontinued: 22:00 Data 05/07/23 05:55 05/06/23 05:51 Micro: Microbiology 05/08/23 13:25 Blood Culture - Preliminary Blood SPECIMEN COLLECTED 05/08/23 13:25 Blood Culture - Preliminary Blood SPECIMEN COLLECTED A&P Assessment and plan (1) Sinus tachycardia: (2) Intractable epilepsy: (3) C. difficile colitis: (4) Difficulty swallowing: (5) Protein-energy malnutrition: Plan Hussein Man is a 22 year old male who is mentally challenged with developmental delay.? Patient has a history of intractable epilepsy. He was recently admitted here for UTI and intractable seizures. His current hospitalization dates back to April 06, 2023 at which time he had presented with C. difficile diarrhea for which she has been treated. He has had a prolonged hospital admission due to his fluctuating mental status. According to the mother patient has deteriorated significantly since February 2023. He is currently not taking any oral intake, refuses to eat most meals. Has been losing weight steadily. There is also additional issue of guardianship. Patient has himself has been refusing most interventions, however it does not appear he has capacity to make these decisions at this time. His mother is in the process of getting guardianship, upcoming court date on May 09, 2023. Active issues as follows. #C. difficile colitis No active diarrhea Previously treated during this admission. Completed course of oral vancomycin. Closely monitor for any recurrence of symptoms. #Progressive neurological decline. At baseline patient is mentally challenged with developmental delay. Per pratik rhe was fairly independent, used to ambulate until February 2023 when he started having breakthrough seizures. At this present time patient is able to speak a few words in conversation, however unable to hold a sentence together. He is able to answer his name, speech is slow and slurred. Will attempt to discuss patient with his outpatient neurologist to estbalish baseline. MRI and MRA of the head performed during this admission were negative for any acute stroke. He does not walk currently, refuses to participate with physical therapy. We do not have the capability for video EEG monitoring at our center. Patient currently refuses to eat. A modified barium swallow was performed to assess for any aspiration or other swallowing difficulties which would impair his eating. On 05/05 multiple food consistencies were tolerated without difficulty. There was mild spillage into the piriform sinuses with difficulty clearing however there were no cadence signs of aspiration or laryngeal penetration. Patient has also been noted to be eating chicken nuggets and foods he likes during this admission but refuses to eat other meals. He is on TPN currently for this reason with plans for PEG to maintain his caloric intake. Neurology consult was initially obtained with Dr. Sánchez, thereafter call switched to Dr. Amado, patient and family adamantly refused to be seen by Dr. Amado. Patient and his family requested a transfer to [facility] so that they could be assessed by his regular neurologist home they trust, however transfer not accepted again today #Malnutrition, inadequate caloric intake Currently on TPN Plans for PEG once guardianship is established. I do not believe patient has capacity to make these decisions at this time. His mother is agreeable for PEG tube #Sinus tachycardia. unclear cause of persistence LVEF 45-50%, anteroseptal hypokinesis. no chest pain, no troponin elevation make ACS less likely, favor stress induced cardiomyopathy vs tachycardia induced CMP more likely. will provide cardiology referral at discharge increase metoprolol to 5 mg iv q6h prn Changed inderal to cardizem May be contributed by anxiety and pain- increase zoloft to 100mg daily, add prn xanax and add prn morphine d dimer negative 05/03, Pe less likely # fever: check blood cx, resume po vancomycin 125 qid, suspect recurrent c diff as also has diarrhea now check CXR DVT ppx: lovenox Full code Attestations 2 Medical Necessity Statement*: continued need for tpn, awaiting PEG, disposition planning, now febrile Coding Level of Care Code Acute Code for Chg Fwd Diagnoses Sinus tachycardia R00.0 Intractable epilepsy G40.919 C. difficile colitis A04.72 Difficulty swallowing R13.10 Protein-energy malnutrition E46
[2023-05-08] MEDS: morphine 4 mg/mL SDV 1 mL 1 MG IVP (16:54)
[2023-05-08] MEDS: metoprolol tartrate 1 mg/1 mL SDV 5 mL 5 MG IVP (17:56)
[2023-05-08 18:50] LABS: Alanine Aminotransferase 40 U/L (0-41); Albumin Level 3.9 g/dL (3.5-5.2); Alkaline Phosphatase 93 U/L (40-130); Anion Gap 17.8 (5-19); Aspartate Amino Transferase 25 U/L (0-40); Blood Urea Nitrogen 20 mg/dL (6-20); Calcium 9.8 mg/dL (8.5-10.5); Carbon Dioxide 24 mmol/L (22-29); Chloride 98 mmol/L (98-107); Glomerular Filtration Rate 204.3 mL/min (90-130); Glucose 106 mg/dL (65-115); Osmolality Calculated 285 mOsm/kg (285-295); Potassium 3.8 mmol/L (3.5-5.1); Sodium 136 mmol/L (136-145); Total Bilirubin 0.3 mg/dL (0.15-1.2); Total Protein 6.9 g/dL (6.6-8.7)
[2023-05-08 20:40] LABS: Glucose Point of Care 122 mg/dL (70-110)
[2023-05-09] VITALS (10 sets, daily range): BP systolic 88–115; BP diastolic 55–81; PULSE 107–142; RESP 13–20; TEMP 36.1–37.3; O2SAT 95–97
[2023-05-09] MEDS: metoprolol tartrate 1 mg/1 mL SDV 5 mL 5 MG IVP ×3 (00:07→15:12)
[2023-05-09] MEDS: enoxaparin 40 mg/0.4 mL Syringe SUBCUT (01:19)
[2023-05-09] MEDS: sertraline 100 mg Tablet PO (05:12)
[2023-05-09] MEDS: dilTIAZem 30 mg Tablet PO (05:12)
[2023-05-09] MEDS: levothyroxine 50 mcg Tablet PO (06:12)
[2023-05-09 06:14] LABS: Glucose Point of Care 115 mg/dL (70-110)
[2023-05-09 06:15] LABS: Basophils # 0.1 10^3/uL (0.0-0.1); Basophils % 0.6 %; Eosinophils # 0.2 10^3/uL (0.0-0.8); Eosinophils % 1.5 %; Hematocrit 37.9 % (37-53); Lymphocytes # 0.8 10^3/uL (0.8-4.8); Lymphocytes % 7.6 %; Mean Corpuscular HGB Conc 32.2 g/dL (30-55); Mean Corpuscular Hemoglobin 30.7 pg (27-33); Mean Corpuscular Volume 95.5 fl (82-101); Mean Platelet Volume 10.5 fL (7.4-10.4); Monocytes # 0.8 10^3/uL (0.2-0.9); Monocytes % 7.9 %; Neutrophils # 8.27 10^3/uL (1.8-7.7); Nucleated Red Blood Cells % 0 %; Platelet Count 371 10^3/cmm (157-399); Red Blood Count 3.97 10^6/uL (3.85-5.65); Red Cell Distribution Width 14.6 % (12.1-15.1); White Blood Count 10.09 10^3/uL (3.29-11.43)
[2023-05-09] MEDS: vancomycin 100 mg/1 mL Oral Syringe 125 MG PO ×3 (08:39→20:43)
[2023-05-09] MEDS: levETIRAcetam 1,000 MG/100 ML PREMIX 400 MG IV ×2 (10:05→21:57)
[2023-05-09] MEDS: AA-Dex 4.25%-5% w/Lytes 1,000 ML 83 ML IV (10:05)
[2023-05-09 11:30] LABS: Glucose Point of Care 124 mg/dL (70-110)
--- NOTE | 2023-05-09 16:18 | PC.NURSE ---
Patients mom informed ERNESTO Flores that she has guardianship and she wants Hussein to get the PEG tube. Case management is already gone for the day and won't return until Friday. Mom informed.
--- NOTE | 2023-05-09 17:59 | P.PN_ITS ---
Subjective 2 Subjective: Patient's mother has received guardianship today. This was able to be confirmed with court records. Legal paperwork would likely take a few days to come in. Mother is agreeable to proceeding with PEG. Tmax 99.2 Fahrenheit last 24 hours. Medications: Reviewed: Yes Vitals/I&O/Wt Last Vital Signs Temp 97.7 F 05/09/23 16:24 Pulse 114 H 05/09/23 16:24 Resp 16 05/09/23 16:24 BP 109/76 05/09/23 16:24 Pulse Ox 97 05/09/23 16:24 O2 Del Method Room Air 05/09/23 16:24 O2 Flow Rate 2 05/01/23 08:29 05/09/23 05/09/23 05/09/23 06:59 14:59 22:59 Intake Total 100 / 2200 1037.9 / 1037.9 Balance 100 / 2200 1037.9 / 1037.9 Weight last 48 hrs Weight 59.222 kg Weight 58.117 kg Physical Exam 2 Narrative: General: No acute distress HEENT: PERRLA, pupils bilaterally equal and reactive, pallors not present Chest: Normal vesicular breath sounds, no added sounds, equal good air entry bilaterally CVS: S1-S2 regular, no murmurs, no tachycardia, no gallops, no rubs Abdomen: Soft, nontender, no organomegaly, bowel sounds present Urinary Catheter Management: Winslow: Cath Placed During This Visit: yes, but has since been removed by the nurse Reason for Continuing Indwelling Catheter: Decision to DC Catheter Urinary Catheter Date of Insertion: 04/06/23 Urinary Catheter Time of Insertion: 20:36 Date Urinary Catheter Removed: 05/03/28 Time Urinary Catheter Discontinued: 22:00 Data 05/09/23 05:50 05/08/23 17:40 Micro: Microbiology 05/08/23 13:25 Blood Culture - Preliminary Blood NEGATIVE TO DATE 05/08/23 13:25 Blood Culture - Preliminary Blood Staphylococcus epidermidis 05/03/23 22:34 Blood Culture - Final Blood NO GROWTH AFTER 5 DAYS 05/03/23 22:31 Blood Culture - Final Blood NO GROWTH AFTER 5 DAYS A&P Assessment and plan (1) Sinus tachycardia: (2) Intractable epilepsy: (3) C. difficile colitis: (4) Difficulty swallowing: (5) Protein-energy malnutrition: Plan Hussein Man is a 22 year old male who is mentally challenged with developmental delay.? Patient has a history of intractable epilepsy. He was recently admitted here for UTI and intractable seizures. His current hospitalization dates back to April 06, 2023 at which time he had presented with C. difficile diarrhea for which she has been treated. He has had a prolonged hospital admission due to his fluctuating mental status. According to the mother patient has deteriorated significantly since February 2023. He is currently not taking any oral intake, refuses to eat most meals. Has been losing weight steadily. There is also additional issue of guardianship. Patient has himself has been refusing most interventions, however it does not appear he has capacity to make these decisions at this time. His mother is in the process of getting guardianship, upcoming court date on May 09, 2023. Active issues as follows. #C. difficile colitis Previously treated during this admission. Completed course of oral vancomycin. Now had one-time fever on May 08, 2023 of 101.3 Fahrenheit. Additionally developed recurrence of diarrhea. Resumed oral vancomycin. So far afebrile last 24 hours. #Progressive neurological decline. At baseline patient is mentally challenged with developmental delay. Per pratik rhe was fairly independent, used to ambulate until February 2023 when he started having breakthrough seizures. At this present time patient is able to speak a few words in conversation, however unable to hold a sentence together. He is able to answer his name, speech is slow and slurred. MRI and MRA of the head performed during this admission were negative for any acute stroke. He does not walk currently, refuses to participate with physical therapy. CT of lumbar spine had incidentally picked up 10 x 3 mm inflammatory focus at the T10 level, not seen on subsequent MRI. We do not have the capability for video EEG monitoring at our center. May feasibly have subclinical seizures. Patient's family requested transfer to [facility], however this was declined by the facility. Discussed with mom option of transferring to another center such as [facility], mother declines for now and wants to do for video EEG monitoring as an outpatient. Patient and family refusing to be evaluated by neurology here any further. #Malnutrition, inadequate caloric intake Currently on TPN Patient currently refuses to eat. A modified barium swallow was performed to assess for any aspiration or other swallowing difficulties which would impair his eating. On 05/05 multiple food consistencies were tolerated without difficulty. There was mild spillage into the piriform sinuses with difficulty clearing however there were no cadence signs of aspiration or laryngeal penetration. Patient has also been noted to be eating chicken nuggets and foods he likes during this admission but refuses to eat other meals. He is on TPN currently for this reason to maintain his caloric intake with plans for PEG to allow enteral intake. PEG placement was pending guardianship. Mother was able to obtain guardianship today. This was confirmed with the court records. Patient does not have capacity to make medical decisions at this time. #Sinus tachycardia. unclear cause of persistence LVEF 45-50%, anteroseptal hypokinesis. no chest pain, no troponin elevation make ACS less likely, favor stress induced cardiomyopathy vs tachycardia induced cardiomyopathy will provide cardiology referral at discharge continue metoprolol to 5 mg iv q6h prn Changed inderal to cardizem , however patient is refusing to take oral medications, hopefully once PEG is placed, he can get medicatiosn to better control HR May be contributed by anxiety and pain- increase zoloft to 100mg daily, add prn xanax and add prn morphine d dimer negative 05/03, PE less likely # fever: 06/12 blood cx + Thais epidermidis , resumed po vancomycin 125 qid, suspect recurrent c diff as also has diarrhea now check CXR DVT ppx: lovenox Full code Attestations 2 Medical Necessity Statement*: Planned PEG and transition to SNF Coding Level of Care Code Acute Code for Chg Fwd Diagnoses Sinus tachycardia R00.0 Intractable epilepsy G40.919 C. difficile colitis A04.72 Difficulty swallowing R13.10 Protein-energy malnutrition E46
[2023-05-09 18:03] LABS: Glucose Point of Care 115 mg/dL (70-110)
--- NOTE | 2023-05-09 18:11 | XRR_ITS ---
PROCEDURE INFORMATION: Exam: XR Chest Exam date and time: 05/09/2023 7:38 PM Age: 22 years old Clinical indication: Shortness of breath; Patient HX: Pneumonia; Chest congestion; Additional info: Assess for pneumonia TECHNIQUE: Imaging protocol: Radiologic exam of the chest. Views: 1 view. COMPARISON: CR (CHEST, ) 05/03/2023 6:19 PM FINDINGS: Tubes, catheters and devices: Right upper extremity PICC is stable in position with the tip at the cavoatrial junction. Lungs: Stable linear scarring in the left lingula. Pleural spaces: No pleural effusion. No pneumothorax. Heart/Mediastinum: The cardiac silhouette and mediastinal contours are unremarkable. Bones/joints: Unremarkable for age. XR/XR chest 1V portable [id number] IMPRESSION: 1. No acute cardiopulmonary process. 2. Incidental/nonacute findings are listed in the report.
[2023-05-09 19:28] LABS: Alanine Aminotransferase 37 U/L (0-41); Albumin Level 3.4 g/dL (3.5-5.2); Alkaline Phosphatase 75 U/L (40-130); Anion Gap 16.1 (5-19); Aspartate Amino Transferase 29 U/L (0-40); Blood Urea Nitrogen 13 mg/dL (6-20); Calcium 9.3 mg/dL (8.5-10.5); Carbon Dioxide 23 mmol/L (22-29); Chloride 92 mmol/L (98-107); Globulin 2.4 g/dL (1.3-4.6); Glomerular Filtration Rate 204.3 mL/min (90-130); Glucose 352 mg/dL (65-115); Magnesium 2.1 mg/dL (1.7-2.3); Osmolality Calculated 274 mOsm/kg (285-295); Potassium 6.1 mmol/L (3.5-5.1); Sodium 125 mmol/L (136-145); Total Bilirubin 0.3 mg/dL (0.15-1.2); Total Protein 5.8 g/dL (6.6-8.7)
[2023-05-09 20:10] LABS: Glucose Point of Care 118 mg/dL (70-110)
[2023-05-09] MEDS: sodium chloride 0.9% 1,000 ML 50 ML IV (20:42)
[2023-05-09 23:55] LABS: Glucose Point of Care 99 mg/dL (70-110)
[2023-05-10] VITALS (18 sets, daily range): BP systolic 102–121; BP diastolic 59–83; PULSE 85–139; RESP 13–22; TEMP 36.1–37.6; O2SAT 92–99
[2023-05-10] MEDS: dilTIAZem 30 mg Tablet PO ×4 (00:10→23:29)
[2023-05-10] MEDS: enoxaparin 40 mg/0.4 mL Syringe SUBCUT (03:23)
[2023-05-10] MEDS: vancomycin 100 mg/1 mL Oral Syringe 125 MG PO ×4 (03:25→21:30)
[2023-05-10] MEDS: metoprolol tartrate 1 mg/1 mL SDV 5 mL 5 MG IVP (04:51)
[2023-05-10 04:54] LABS: Basophils % 0.6 %; Eosinophils # 0.2 10^3/uL (0.0-0.8); Eosinophils % 2.8 %; Hematocrit 33.7 % (37-53); Lymphocytes # 0.8 10^3/uL (0.8-4.8); Lymphocytes % 10.8 %; Mean Corpuscular HGB Conc 31.8 g/dL (30-55); Mean Corpuscular Hemoglobin 30.5 pg (27-33); Mean Platelet Volume 10.3 fL (7.4-10.4); Monocytes # 0.6 10^3/uL (0.2-0.9); Monocytes % 8.9 %; Neutrophils # 5.43 10^3/uL (1.8-7.7); Neutrophils % 76.5 %; Nucleated Red Blood Cells % 0 %; Platelet Count 340 10^3/cmm (157-399); Red Blood Count 3.51 10^6/uL (3.85-5.65); Red Cell Distribution Width 14.6 % (12.1-15.1)
[2023-05-10] MEDS: sertraline 100 mg Tablet PO (06:04)
[2023-05-10] MEDS: levothyroxine 50 mcg Tablet PO (06:05)
[2023-05-10 06:32] LABS: Glucose Point of Care 99 mg/dL (70-110)
[2023-05-10 07:07] LABS: Alanine Aminotransferase 42 U/L (0-41); Albumin Level 3.7 g/dL (3.5-5.2); Alkaline Phosphatase 88 U/L (40-130); Anion Gap 16.5 (5-19); Aspartate Amino Transferase 27 U/L (0-40); Blood Urea Nitrogen 9 mg/dL (6-20); Calcium 9.4 mg/dL (8.5-10.5); Carbon Dioxide 24 mmol/L (22-29); Chloride 99 mmol/L (98-107); Globulin 2.7 g/dL (1.3-4.6); Glomerular Filtration Rate 204.3 mL/min (90-130); Glucose 93 mg/dL (65-115); Osmolality Calculated 280 mOsm/kg (285-295); Potassium 3.5 mmol/L (3.5-5.1); Sodium 136 mmol/L (136-145); Total Bilirubin 0.3 mg/dL (0.15-1.2); Total Protein 6.4 g/dL (6.6-8.7)
[2023-05-10] MEDS: levETIRAcetam 1,000 MG/100 ML PREMIX 400 MG IV ×2 (09:40→21:29)
--- NOTE | 2023-05-10 10:21 | P.PN_ITS ---
Vitals/I&O/Wt Last Vital Signs Temp 97.5 F L 05/10/23 08:08 Pulse 122 H 05/10/23 08:10 Resp 18 05/10/23 08:10 BP 112/68 05/10/23 08:08 Pulse Ox 96 05/10/23 08:10 O2 Del Method Room Air 05/10/23 08:10 O2 Flow Rate 2 05/01/23 08:29 05/09/23 05/10/23 05/10/23 22:59 06:59 14:59 Intake Total 950.75 / 1987.65 Balance 950.75 / 1987. Weight last 48 hrs Weight 133 lb 4 oz Weight 130 lb 9 oz Physical Exam 2 Narrative: General: No acute distress Cardiovascular, regular rate and rhythm Respiratory equal chest rise bilaterally no use of accessory muscles Urinary Catheter Management: Winslow: Cath Placed During This Visit: yes, but has since been removed by the nurse Reason for Continuing Indwelling Catheter: Decision to DC Catheter Urinary Catheter Date of Insertion: 04/06/23 Urinary Catheter Time of Insertion: 20:36 Date Urinary Catheter Removed: 05/03/28 Time Urinary Catheter Discontinued: 22:00 Data 05/10/23 04:28 05/10/23 04:28 Micro: Microbiology 05/08/23 13:25 Blood Culture - Preliminary Blood NEGATIVE TO DATE 05/08/23 13:25 Blood Culture - Preliminary Blood Staphylococcus epidermidis A&P Assessment and plan (1) Intractable epilepsy: (2) Protein-energy malnutrition: Plan I am taking over care of this patient for the weekend from Dr. Sanchez. Consent for percutaneous endoscopic gastrostomy tube was obtained by the patient's mother and legal guardian The risks and benefits of the procedure, including bleeding, infection, intestinal perforation requiring surgery, missed lesion were explained to the patient. The patient is understanding of the risks and wishes to proceed. Attestations 2 Medical Necessity Statement*: Per primary Coding Level of Care Code Acute Code for Chg Fwd Diagnoses Intractable epilepsy G40.919 Protein-energy malnutrition E46
--- NOTE | 2023-05-10 12:15 | PM.PN ---
Subjective Subjective: 1 episode of diarrhea yesterday. Status post PEG placement today. Tolerated procedure well. To be starting tube feeds tomorrow. We will wean off TPN once tube feeds started. Medications: Reviewed: Yes Vitals/I&O/Wt Last Vital Signs Temp 97 F L 05/10/23 10:50 Pulse 113 H 05/10/23 11:11 Resp 18 05/10/23 11:11 BP 118/71 05/10/23 11:11 Pulse Ox 95 05/10/23 11:11 O2 Del Method Room Air 05/10/23 11:11 O2 Flow Rate 3 05/10/23 10:50 05/09/23 05/10/23 05/10/23 22:59 06:59 14:59 Intake Total 950.75 / 1987.65 Balance 950.75 / 1987.65 Weight last 48 hrs Weight 60.441 kg Weight 59.222 kg Physical Exam Narrative: General: No acute distress HEENT: PERRLA, pupils bilaterally equal and reactive, pallors not present Chest: Normal vesicular breath sounds, no added sounds, equal good air entry bilaterally CVS: S1-S2 regular, no murmurs, no tachycardia, no gallops, no rubs Abdomen: Soft, nontender, no organomegaly, bowel sounds present Urinary Catheter Management: Winslow: Cath Placed During This Visit: yes, but has since been removed by the nurse Reason for Continuing Indwelling Catheter: Decision to DC Catheter Urinary Catheter Date of Insertion: 04/06/23 Urinary Catheter Time of Insertion: 20:36 Date Urinary Catheter Removed: 05/03/28 Time Urinary Catheter Discontinued: 22:00 Data 05/10/23 04:28 05/10/23 04:28 Micro: Microbiology 05/08/23 13:25 Blood Culture - Preliminary Blood NEGATIVE TO DATE 05/08/23 13:25 Blood Culture - Preliminary Blood Staphylococcus epidermidis A&P Assessment and plan (1) Sinus tachycardia: (2) Intractable epilepsy: (3) C. difficile colitis: (4) Difficulty swallowing: (5) Protein-energy malnutrition: Plan Hussein Man is a 22 year old male who is mentally challenged with developmental delay.? Patient has a history of intractable epilepsy. He was recently admitted here for UTI and intractable seizures. His current hospitalization dates back to April 06, 2023 at which time he had presented with C. difficile diarrhea for which she has been treated. He has had a prolonged hospital admission due to his fluctuating mental status. According to the mother patient has deteriorated significantly since February 2023. He is currently not taking any oral intake, refuses to eat most meals. Has been losing weight steadily. There is also additional issue of guardianship. Patient has himself has been refusing most interventions, however it does not appear he has capacity to make these decisions at this time. His mother was granted guardianship on 05/09/2023. This is confirmed per court records. Paperwork pending. #C. difficile colitis Previously treated during this admission. Completed course of oral vancomycin. Now had one-time fever on May 08, 2023 of 101.3 Fahrenheit. Additionally developed recurrence of diarrhea. Resumed oral vancomycin. Plan to discharge with either Dificid if not cost prohibitive versus vancomycin taper if cannot afford Dificid. He is now afebrile again. #Progressive neurological decline. At baseline patient is mentally challenged with developmental delay. Per pratik rhe was fairly independent, used to ambulate until February 2023 when he started having breakthrough seizures. At this present time patient is able to speak a few words in conversation, however unable to hold a sentence together. He is able to answer his name, speech is slow and slurred. MRI and MRA of the head performed during this admission were negative for any acute stroke. He does not walk currently, refuses to participate with physical therapy. CT of lumbar spine had incidentally picked up 10 x 3 mm inflammatory focus at the T10 level, not seen on subsequent MRI. We do not have the capability for video EEG monitoring at our center. May feasibly have subclinical seizures. Patient's family requested transfer to [facility] [place], however this was declined by the facility. Discussed with mom option of transferring to another center such as [facility], mother declines for now and wants to do for video EEG monitoring as an outpatient. Patient and family refusing to be evaluated by neurology here any further, willing to see Dr. Sánchez as outpatient. #Malnutrition, inadequate caloric intake Currently on TPN Patient currently refuses to eat. A modified barium swallow was performed to assess for any aspiration or other swallowing difficulties which would impair his eating. On 05/05 multiple food consistencies were tolerated without difficulty. There was mild spillage into the piriform sinuses with difficulty clearing however there were no cadence signs of aspiration or laryngeal penetration. Patient has also been noted to be eating chicken nuggets and foods he likes during this admission but refuses to eat other meals. He is on TPN currently for this reason to maintain his caloric intake. Nw s/p PEG today, with consent from mother To start using at 11Am tomorrow. Wean off TPN once starts PEG feeds #Sinus tachycardia. unclear cause of persistence LVEF 45-50%, anteroseptal hypokinesis. no chest pain, no troponin elevation make ACS less likely, favor stress induced cardiomyopathy vs tachycardia induced cardiomyopathy will provide cardiology referral at discharge continue metoprolol to 5 mg iv q6h prn Changed inderal to cardizem , however patient is refusing to take oral medications, hopefully once PEG is placed, he can get medicatiosn to better control HR May be contributed by anxiety and pain- increased zoloft to 100mg daily, add prn xanax and add prn morphine d dimer negative 05/03, PE less likely # fever: Now resolved / blood cx + Thais epidermidis , likely contaminant resumed po vancomycin 125 qid, suspect recurrent c diff CXR without consolidation DVT ppx: lovenox appropriate dispo planning ongoing- likely will benefit from continued rehab Full code Attestations Medical Necessity Statement*: s/p PEG today , dipsotioon planning, start tube feeds and wean off tpn next 24 hrs Coding Level of Care Code Acute Code for Chg Fwd Diagnoses Sinus tachycardia R00.0 Intractable epilepsy G40.919 C. difficile colitis A04.72 Difficulty swallowing R13.10 Protein-energy malnutrition E46
[2023-05-10 12:29] LABS: Glucose Point of Care 93 mg/dL (70-110)
[2023-05-10] MEDS: AA-Dex 4.25%-5% w/Lytes 1,000 ML 23 ML IV (13:06)
[2023-05-10 17:00] LABS: Glucose Point of Care 96 mg/dL (70-110)
[2023-05-10] MEDS: sodium chloride 0.9% 1,000 ML 50 ML IV (17:57)
[2023-05-10 23:23] LABS: Glucose Point of Care 117 mg/dL (70-110)
[2023-05-11] VITALS (9 sets, daily range): BP systolic 103–117; BP diastolic 60–77; PULSE 72–133; RESP 14–20; TEMP 36.4–37.6; O2SAT 92–97
[2023-05-11] MEDS: vancomycin 100 mg/1 mL Oral Syringe 125 MG PO ×3 (02:54→21:10)
[2023-05-11] MEDS: AA-Dex 4.25%-5% w/Lytes 1,000 ML 83 ML IV (02:54)
[2023-05-11 06:24] LABS: Glucose Point of Care 109 mg/dL (70-110)
[2023-05-11 11:22] LABS: Glucose Point of Care 120 mg/dL (70-110)
[2023-05-11 11:48] LABS: Basophils % 0.5 %; Eosinophils # 0.1 10^3/uL (0.0-0.8); Eosinophils % 1.2 %; Hematocrit 33.2 % (37-53); Lymphocytes # 0.6 10^3/uL (0.8-4.8); Lymphocytes % 7.5 %; Mean Corpuscular HGB Conc 31.9 g/dL (30-55); Mean Corpuscular Hemoglobin 30.5 pg (27-33); Mean Corpuscular Volume 95.4 fl (82-101); Mean Platelet Volume 10.5 fL (7.4-10.4); Monocytes # 0.6 10^3/uL (0.2-0.9); Monocytes % 6.7 %; Neutrophils # 7.11 10^3/uL (1.8-7.7); Neutrophils % 83.6 %; Nucleated Red Blood Cells % 0 %; Platelet Count 336 10^3/cmm (157-399); Red Blood Count 3.48 10^6/uL (3.85-5.65); Red Cell Distribution Width 14.3 % (12.1-15.1)
[2023-05-11 12:08] LABS: Alanine Aminotransferase 37 U/L (0-41); Albumin Level 3.5 g/dL (3.5-5.2); Alkaline Phosphatase 89 U/L (40-130); Anion Gap 14.4 (5-19); Aspartate Amino Transferase 17 U/L (0-40); Blood Urea Nitrogen 8 mg/dL (6-20); Calcium 9.4 mg/dL (8.5-10.5); Carbon Dioxide 25 mmol/L (22-29); Chloride 102 mmol/L (98-107); Globulin 2.7 g/dL (1.3-4.6); Glomerular Filtration Rate 588.1 mL/min (90-130); Glucose 113 mg/dL (65-115); Osmolality Calculated 285 mOsm/kg (285-295); Potassium 3.4 mmol/L (3.5-5.1); Sodium 138 mmol/L (136-145); Total Bilirubin 0.2 mg/dL (0.15-1.2); Total Protein 6.2 g/dL (6.6-8.7)
[2023-05-11] MEDS: levETIRAcetam 1,000 MG/100 ML PREMIX 400 MG IV ×2 (14:39→22:20)
[2023-05-11] MEDS: sodium chloride 0.9% 1,000 ML 50 ML IV (14:53)
--- NOTE | 2023-05-11 16:29 | P.PN_ITS ---
Subjective 2 Subjective: s/ PEG yesterday, no acute events, D/c TPN and start PEG feeding today. Medications: Reviewed: Yes Vitals/I&O/Wt Last Vital Signs Temp 98.5 F 05/12/23 18:09 Pulse 116 H 05/12/23 18:09 Resp 18 05/12/23 18:09 BP 105/70 05/12/23 18:09 Pulse Ox 96 05/12/23 18:09 O2 Del Method Room Air 05/12/23 16:14 O2 Flow Rate 95 05/12/23 07:23 Physical Exam 2 Narrative: General: No acute distress HEENT: PERRLA, pupils bilaterally equal and reactive, pallors not present Chest: Normal vesicular breath sounds, no added sounds, equal good air entry bilaterally CVS: S1-S2 regular, no murmurs, no tachycardia, no gallops, no rubs Abdomen: Soft, nontender, no organomegaly, bowel sounds present Urinary Catheter Management: [place]: Cath Placed During This Visit: yes, but has since been removed by the nurse Reason for Continuing Indwelling Catheter: Decision to DC Catheter Urinary Catheter Date of Insertion: 04/06/23 Urinary Catheter Time of Insertion: 20:36 Date Urinary Catheter Removed: 05/03/28 Time Urinary Catheter Discontinued: 22:00 Data 05/12/23 05:12 05/12/23 05:12 A&P Assessment and plan (1) Sinus tachycardia: (2) Intractable epilepsy: (3) C. difficile colitis: (4) Difficulty swallowing: (5) Protein-energy malnutrition: Plan Hussein Man is a 22 year old male who is mentally challenged with developmental delay.? Patient has a history of intractable epilepsy. He was recently admitted here for UTI and intractable seizures. His current hospitalization dates back to April 06, 2023 at which time he had presented with C. difficile diarrhea for which she has been treated. He has had a prolonged hospital admission due to his fluctuating mental status. Mom has guardianship now #C. difficile colitis Previously treated during this admission. Completed course of oral vancomycin. Now had one-time fever on May 08, 2023 of 101.3 Fahrenheit. Additionally developed recurrence of diarrhea. Resumed oral vancomycin. So far afebrile last 24 hours. Pln discharged with po dificid 200mg BID x 14 days #Progressive neurological decline. At baseline patient is mentally challenged with developmental delay. Per pratik kimber was fairly independent, used to ambulate until February 2023 when he started having breakthrough seizures. At this present time patient is able to speak a few words in conversation, however unable to hold a sentence together. He is able to answer his name, speech is slow and slurred. MRI and MRA of the head performed during this admission were negative for any acute stroke. He does not walk currently, refuses to participate with physical therapy. CT of lumbar spine had incidentally picked up 10 x 3 mm inflammatory focus at the T10 level, not seen on subsequent MRI. We do not have the capability for video EEG monitoring at our center. May feasibly have subclinical seizures. Patient's family requested transfer to [facility], however this was declined by the facility. Discussed with mom option of transferring to another center such as [facility], mother declines for now and wants to do for video EEG monitoring as an outpatient. Patient and family refusing to be evaluated by neurology here any further. #Malnutrition, inadequate caloric intake Currently on TPN, D/c today s/p PEG yesterday, start tube feeding diet today Consult staffing specialist #Sinus tachycardia. unclear cause of persistence LVEF 45-50%, anteroseptal hypokinesis. no chest pain, no troponin elevation make ACS less likely, favor stress induced cardiomyopathy vs tachycardia induced cardiomyopathy will provide cardiology referral at discharge continue metoprolol to 5 mg iv q6h prn Changed inderal to cardizem , however patient is refusing to take oral medications, hopefully once PEG is placed, he can get medicatiosn to better control HR May be contributed by anxiety and pain- increase zoloft to 100mg daily, add prn xanax and add prn morphine d dimer negative 05/03, PE less likely DVT ppx: lovenox Full code dispo: discharge to SNF, likely in the next 24-48 hrs Guardian: mother; patient has impaired capacity Attestations 2 Medical Necessity Statement*: start tube feeding diet via PEG today Coding Level of Care Code Acute Code for Chg Fwd Diagnoses Sinus tachycardia R00.0 Intractable epilepsy G40.919 C. difficile colitis A04.72 Difficulty swallowing R13.10 Protein-energy malnutrition E46
[2023-05-11] MEDS: dilTIAZem 60 mg Tablet PEG-TUBE ×2 (16:30→21:10)
[2023-05-11 16:48] LABS: Glucose Point of Care 97 mg/dL (70-110)
[2023-05-11 20:19] LABS: Glucose Point of Care 92 mg/dL (70-110)
[2023-05-12] VITALS (7 sets, daily range): BP systolic 96–105; BP diastolic 62–70; PULSE 116–132; RESP 15–19; TEMP 36.4–37.7; O2SAT 92–98
[2023-05-12 02:03] LABS: Glucose Point of Care 99 mg/dL (70-110)
[2023-05-12] MEDS: vancomycin 100 mg/1 mL Oral Syringe 125 MG PO ×3 (02:28→15:14)
[2023-05-12] MEDS: dilTIAZem 60 mg Tablet PEG-TUBE ×3 (02:28→15:14)
[2023-05-12] MEDS: enoxaparin 40 mg/0.4 mL Syringe SUBCUT (02:37)
[2023-05-12] MEDS: levothyroxine 50 mcg Tablet PEG-TUBE (05:42)
[2023-05-12] MEDS: sertraline 100 mg Tablet PEG-TUBE (05:42)
[2023-05-12 05:53] LABS: Basophils # 0.1 10^3/uL (0.0-0.1); Basophils % 0.6 %; Eosinophils # 0.2 10^3/uL (0.0-0.8); Eosinophils % 1.9 %; Hematocrit 34.1 % (37-53); Lymphocytes # 0.7 10^3/uL (0.8-4.8); Lymphocytes % 8.7 %; Mean Corpuscular HGB Conc 31.7 g/dL (30-55); Mean Corpuscular Hemoglobin 29.9 pg (27-33); Mean Corpuscular Volume 94.5 fl (82-101); Mean Platelet Volume 10.5 fL (7.4-10.4); Monocytes # 0.7 10^3/uL (0.2-0.9); Neutrophils # 6.51 10^3/uL (1.8-7.7); Neutrophils % 80.4 %; Nucleated Red Blood Cells % 0 %; Platelet Count 362 10^3/cmm (157-399); Red Blood Count 3.61 10^6/uL (3.85-5.65); Red Cell Distribution Width 14.4 % (12.1-15.1); White Blood Count 8.09 10^3/uL (3.29-11.43)
[2023-05-12 06:15] LABS: Alanine Aminotransferase 28 U/L (0-41); Albumin Level 3.4 g/dL (3.5-5.2); Alkaline Phosphatase 96 U/L (40-130); Anion Gap 17.6 (5-19); Aspartate Amino Transferase 16 U/L (0-40); Blood Urea Nitrogen 4 mg/dL (6-20); Calcium 9.3 mg/dL (8.5-10.5); Carbon Dioxide 23 mmol/L (22-29); Chloride 99 mmol/L (98-107); Globulin 2.8 g/dL (1.3-4.6); Glomerular Filtration Rate 204.3 mL/min (90-130); Glucose 112 mg/dL (65-115); Osmolality Calculated 280 mOsm/kg (285-295); Potassium 3.6 mmol/L (3.5-5.1); Sodium 136 mmol/L (136-145); Total Bilirubin 0.2 mg/dL (0.15-1.2); Total Protein 6.2 g/dL (6.6-8.7)
[2023-05-12 07:00] LABS: Glucose Point of Care 95 mg/dL (70-110)
[2023-05-12] MEDS: sodium chloride 0.9% 1,000 ML 50 ML IV (09:43)
[2023-05-12] MEDS: levETIRAcetam 1,000 MG/100 ML PREMIX 400 MG IV (09:45)
--- NOTE | 2023-05-12 10:08 | PC.NUTR ---
Consult received for bolus feeds. Recommend Jevity 1.5 - 240 mls or 1 carton - to be given @ 8am/ noon/ 4pm/ 8pm, with 60 mls FWF before and after bolus. Begin with 120 mls for first two bolus feeds, then full strength of 240 mls if tolerated by patient. *If wt loss, recommend additional 120-240 mls with 8pm feed. Details in RD assessment.
[2023-05-12 11:15] LABS: Glucose Point of Care 106 mg/dL (70-110)
--- NOTE | 2023-05-12 12:44 | PM.DCS ---
Discharge Providers Date of Admission: 04/06/23 22:20 Date of Discharge: May 12, 2023 Attending Provider at Admission: Parminder Medeiros Attending Provider at Discharge: Shelbie Zheng MD Primary Care Provider: SPENSER Quezada Diagnoses at Discharge Discharge Diagnosis (1) Sinus tachycardia: Status: Acute (2) Intractable epilepsy: Status: Acute (3) C. difficile colitis: Status: Acute (4) Difficulty swallowing: Status: Acute (5) Protein-energy malnutrition: Status: Acute Reason for Visit Reason for Visit: WEAKNESS; AMS Brief History: As per Dr. Prince 22-year-old gentleman with developmental delay, seizure disorder, hypothyroidism, recently admitted due to breakthrough seizures, weakness, UTI. His seizure regimen was adjusted. He received treatment with antibiotic and received 5 more days to complete of cefdinir, Keppra, as needed diazepam, referral for outpatient EEG and follow-up with neurology when he discharged home with his parents. He has been more inactive recently, lacking motivation. Not getting out of bed. EMS was called today due to recurrence of the symptoms with worsening, with generalized weakness, deconditioning, on arrival of EMS was minimally responsive, blood pressure could not be obtained. Disheveled. Bed in very poor condition underneath him. Some fluids possibly with coffee-ground appearance possibly after emesis noted on the bed. IL access was placed, he received a bolus of fluid, started on epi drip. In ER he is hypotensive, with sinus tachycardia, leukocytosis, minimally responsive, received additional 2 L of boluses, with noted electrolyte abnormalities. Noted purpura large bruises, skin breakdown on and around genitals with moisture damage in the groin, scrotum, around the meatus. Central line was placed. Empirically received Zosyn, pressors ordered, but blood pressure appears to have started to improve. He is more responsive. With regards to his medical conditions he tells me that he takes seizure medications. Does not recalling details from prior hospitalization other than he went to the CT scanner 3 times. He tells me that he is in the hospital. He does not remember the current year. Hospital Course Hospital Course Hussein Man is a 22 year old male who is mentally challenged with developmental delay.? Patient has a history of intractable epilepsy. He was recently admitted here for UTI and intractable seizures. His current hospitalization dates back to April 06, 2023 at which time he had presented with C. difficile diarrhea for which she has been treated. He has had a prolonged hospital admission due to his fluctuating mental status. According to the mother patient has deteriorated significantly since February 2023. He is currently not taking any oral intake, refuses to eat most meals. Has been losing weight steadily. PEG tube was placed and tube feeds have been started. During this hospital stay he is also had sinus tachycardia which has an unclear cause of persistence. Echo shows LVEF 45 to 50% and anteroseptal hypokinesis. No chest pain no troponin elevation. Stress-induced cardiomyopathy versus tachycardia induced cardiomyopathy favored. He will be given a cardiology follow-up at discharge. During hospital stay he has been tried on metoprolol, Cardizem, propranolol for sinus tachycardia. At time of discharge we will place him on Cardizem 30 every 8 hours, Toprol 12.5 daily. Hopefully he can tolerate these better through PEG tube. I have put parameters to hold medication if systolic pressure less than 90. He has had several CT angios to rule out PE. . Patient has had progressive neurological decline.At baseline patient is mentally challenged with developmental delay. Per pratik rhe was fairly independent, used to ambulate until February 2023 when he started having breakthrough seizures. At this present time patient is able to speak a few words in conversation, however unable to hold a sentence together. He is able to answer his name, speech is slow and slurred. MRI and MRA of the head performed during this admission were negative for any acute stroke. He does not walk currently, refuses to participate with physical therapy. CT of lumbar spine had incidentally picked up 10 x 3 mm inflammatory focus at the T10 level, not seen on subsequent MRI.We do not have the capability for video EEG monitoring at our center. May feasibly have subclinical seizures. Patient's family requested transfer to [facility], however this was declined by the facility. Discussed with mom option of transferring to another center such as [facility], mother declines for now and wants to do for video EEG monitoring as an outpatient. Patient and family refusing to be evaluated by neurology here any further. Patient did develop fever and diarrhea 2 days ago for which we have decided to treat him for recurrence of C. difficile at this time. We will send him on 10 days of Dificid. He has been afebrile since initiation of medication. 1 out of 2 blood culture positive for strep epidermidis which is most likely a contaminant. Guardianship has been obtained by patient's mother. He is tolerating his tube feeds today. He will be sent to [facility] in stable condition. PICC line was removed prior to discharge. Discussed with patient's father at discharge on the phone who told me that patient's mom Felicia Man was at [facility] getting everything ready for her son's arrival there. For further information please refer to H&P, progress notes for his 36-day hospital stay. Physical Exam Narrative: General: No acute distress HEENT: PERRLA, pupils bilaterally equal and reactive, pallors not present Chest: Normal vesicular breath sounds, no added sounds, equal good air entry bilaterally CVS: S1-S2 regular, no murmurs, no tachycardia, no gallops, no rubs Abdomen: Soft, nontender, no organomegaly, bowel sounds present Urinary Catheter Management: Winslow: Cath Placed During This Visit: yes, but has since been removed by the nurse Reason for Continuing Indwelling Catheter: Decision to DC Catheter Urinary Catheter Date of Insertion: 04/06/23 Urinary Catheter Time of Insertion: 20:36 Date Urinary Catheter Removed: 05/03/28 Time Urinary Catheter Discontinued: 22:00 Discharge Data Studies Completed and Pending Completed Studies During Hospitalization Category Date Time Status CT abdomen pelvis w con* [id number] Routine Cat Scan 04/11/23 14:[address] abdomen pelvis w con* [id number] Stat Cat Scan 04/06/23 18:[address] angio chest PE protcl [id number] Routine Cat Scan 04/13/23 18:[address] chest abdpel w/*[id number] Stat Cat Scan 04/30/23 16:[address] chest wo con [id number] Routine Cat Scan 04/11/23 09:[address] head wo con* [id number] Routine Cat Scan 04/11/23 09:[address] head wo con* [id number] Stat Cat Scan 04/06/23 18:[address] head wo con* [id number] Stat Cat Scan 04/29/23 06:[address] lumbar spine w con 30613 Urgent Cat Scan 05/03/23 21:[address] thoracic spine w con [id number] Urgent Cat Scan 05/03/23 21:23 Completed CTA chest [CT angio chest PE protcl [id number]] Routine Cat Scan 04/07/23 04:49 Completed CXRP [XR chest 1V portable [id number]] AM LABS Exams 05/09/23 18:11 Completed CXRP [XR chest 1V portable [id number]] Routine Exams 04/06/23 22:57 Completed CXRP [XR chest 1V portable 30488] Routine Exams 04/13/23 05:24 Completed CXRP [XR chest 1V portable [id number]] Routine Exams 04/20/23 15:18 Completed CXRP [XR chest 1V portable 12148] Stat Exams 04/29/23 06:01 Completed FL barium swallow modifd 15746 Routine Exams 05/05/23 08:00 Completed XR chest 1V portable [id number] Routine Exams 04/12/23 17:46 Completed XR chest 1V portable 70074 Routine Exams 04/13/23 17:19 Completed XR chest 1V portable 54590 Routine Exams 05/03/23 15:13 Completed XR chest 1V portable 48986 Stat Exams 04/06/23 18:14 Completed XR chest 1V portable 86920 Stat Exams 04/12/23 23:26 Completed XR chest 1V portable [id number] Stat Exams 04/21/23 19:07 Completed XR chest 1V portable 14238 Stat Exams 04/29/23 16:38 Completed Stool Culture - Enteric [Salmonella / Shigella / Campy] Lab 04/30/23 16:25 Completed Routine MR angio head wo con [id number] Stat MRI 04/13/23 08:00 Completed MR head wo con* [id number] Stat MRI 04/13/23 08:00 Completed MR thoracic spine wo/w 54589 Routine MRI 05/07/23 09:30 [place] [id number] Routine Ultrasound 04/26/23 08:26 Completed CV. echo complete* [id number] Routine Ultrasound 05/06/23 11:26 Completed [place] thyroid [id number] Urgent Ultrasound 05/04/23 08:25 Completed Pending at discharge Category Date Time Status Blood Culture Stat Lab 05/08/23 13:25 Results Lacosamide (Vimpat) Routine Lab 04/29/23 05:56 Received Sputum Culture and Gram Stain Stat Lab 04/29/23 18:49 Uncollected Urinalysis Routine Lab 05/03/23 15:11 Uncollected Radiology Impressions Chest CT 04/11/23 09:12 IMPRESSION: 1. Bronchial wall thickening and mucous plugging in the left lower lobe. Reticulonodular interstitial thickening and scattered ground-glass opacities in both lungs with more focal airspace disease in the posterior left lower lobe. Findings are new compared with the prior study and are suspicious for pneumonia. Recommend followup chest imaging to insure resolution of these findings. 2. Multiple mildly enlarged mediastinal and hilar lymph nodes are stable compared with 01/18/2022. 3. Area of ground-glass opacification in the superior left lower lobe has resolved. 4. Noncalcified nodule in the left lower lobe with an average measurement of 5 mm (series 4, image 34). This is new compared with 01/08/2022. For patients at low risk (minimal or absent history of smoking and of other known risk factors), no routine follow-up is indicated. For patients at high risk (history of smoking or of other known risk factors), consider optional CT Chest at 12 months. (Reference: Angie) 5. Incidental/nonacute findings are listed in the report. REFERENCES: Angie Garcia, et al. Guidelines for Management of Incidental Pulmonary Nodules Detected on CT Images: From the Fleischner Society 2017. Radiology. 2017;284(1):228-243. Abdomen/Pelvis CT 04/11/23 14:46 IMPRESSION: 1. Interval development of findings consistent with mild pancolitis. Findings may be infectious or inflammatory in nature, or could suggest pseudomembranous colitis in the appropriate clinical situation. Recommend clinical correlation. 2. Interval development of mild inflammatory changes involving the appendix, it is uncertain whether this may be due to primary appendicitis or secondary to development of colitis. 3. Tiny focus of increased density in the lumen of the cecum (series 5, image 23). A colonic bleed can not be ruled out. Nuclear medicine imaging with tagged red blood cell scan may be obtained for further evaluation as clinically indicated. 4. 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 5. Incidental/nonacute findings are listed in the report. COMMENTS: THIS REPORT CONTAINS FINDINGS THAT MAY BE CRITICAL TO PATIENT CARE. The findings were verbally communicated via telephone conference with EMIL Neumann at 5:27 PM CDT on 04/11/2023. The findings were acknowledged and understood. Head MRI 04/13/23 08:00 IMPRESSION: No acute intracranial abnormality identified. Head MRA 04/13/23 08:00 IMPRESSION: No stenosis or occlusion. Chest CTA 04/13/23 18:08 IMPRESSION: 1. Negative for pulmonary embolus. 2. Small left pleural effusion. 3. Patchy bilateral largely left lower lobe pneumonic infiltrates. 4. Right-sided Port-A-Cath. 5. Enteric tube tip the stomach. 6. Hepatic steatosis. 7. Scattered prominent mediastinal lymph nodes measuring up to 16 mm, nonspecific. Venous Duplex 04/26/23 08:26 IMPRESSION: No evidence of deep vein thrombosis. Head CT 04/29/23 06:07 IMPRESSION: No acute intracranial abnormality. Chest/Abdomen/Pelvis CT 04/30/23 16:19 IMPRESSION: Improved but residual utmx-hcekneh-twlm-right lower lobe consolidation. IMPRESSION: No new/acute abdominal findings or significant short interval change. Lumbar Spine CT 05/03/23 21:23 IMPRESSION: No acute findings. No abscess. Thoracic Spine CT 05/03/23 21:23 IMPRESSION: 1. 10 mm x 3 mm x 2 mm focal enhancement in the left spinal cord at the T10 level could be inflammatory or neoplastic. 2. Lymphadenopathy could be reactive or neoplastic. 3. No abscess. 4. Small bilateral noncalcified pulmonary nodules.For patients at low risk (minimal or absent history of smoking and of other known risk factors), no routine follow-up is indicated. For patients at high risk (history of smoking or of other known risk factors), consider optional CT Chest at 12 months. (Reference: Angie) REFERENCES: Farahokyree Garcia, et al. Guidelines for Management of Incidental Pulmonary Nodules Detected on CT Images: From the Fleischner Society 2017. Radiology. 2017;284(1):228-243. Thyroid Ultrasound 05/04/23 08:25 IMPRESSION: Unremarkable thyroid. Chest X-Ray 05/09/23 18:11 IMPRESSION: 1. No acute cardiopulmonary process. 2. Incidental/nonacute findings are listed in the report. Laboratory Results WBC 8.09 10^3/uL (3.29-11.43) 05/12/23 05:12 RBC 3.61 10^6/uL (3.85-5.65) L 05/12/23 05:12 Hgb 10.80 g/dL (11.27-16.99) L 05/12/23 05:12 Hct 34.1 % (37-53) L 05/12/23 05:12 MCV 94.5 fl (82-101) 05/12/23 05:12 MCH 29.9 pg (27-33) 05/12/23 05:12 MCHC 31.7 g/dL (30-55) 05/12/23 05:12 RDW 14.4 % (12.1-15.1) 05/12/23 05:12 Plt Count 362 10^3/cmm (157-399) 05/12/23 05:12 MPV 10.5 fL (7.4-10.4) H 05/12/23 05:12 Neut % (Auto) 80.4 % 05/12/23 05:12 Lymph % (Auto) 8.7 % 05/12/23 05:12 [place] % (Auto) 8.0 % 05/12/23 05:12 Eos % (Auto) 1.9 % 05/12/23 05:12 Baso % (Auto) 0.6 % 05/12/23 05:12 Neut # (Auto) 6.51 10^3/uL (1.8-7.7) 05/12/23 05:12 Lymph # (Auto) 0.7 10^3/uL (0.8-4.8) L 05/12/23 05:12 [place] # (Auto) 0.7 10^3/uL (0.2-0.9) 05/12/23 05:12 Eos # (Auto) 0.2 10^3/uL (0.0-0.8) 05/12/23 05:12 Baso # (Auto) 0.1 10^3/uL (0.0-0.1) 05/12/23 05:12 Nucleated RBC % (auto) 0 % 05/12/23 05:12 Nucleated RBCs # 0.0 /100WBC 05/12/23 05:12 ESR 45 mm/hr (0-10) H 05/03/23 16:11 PT 26.10 SECONDS (12.1-14.9) H 05/03/23 16:11 INR 2.29 (0.8-1.2) H 05/03/23 16:11 APTT 39.1 SECONDS (23.9-36.7) H 05/03/23 16:11 Fibrinogen 529 mg/dL (174-498) H 05/03/23 16:11 Fibrin Degrad Products <5 mcg/mL (LESS THAN 5) 05/03/23 16:23 D-Dimer 0.59 ug/mLFEU (0-0.59) 05/03/23 16:11 Specimen Type Arterial 05/03/23 15:26 Sample Site Brachial, left 05/03/23 15:26 ABG pH 7.44 (7.35-7.45) 05/03/23 15:26 ABG pCO2 36.7 mmHg (35-45) 05/03/23 15: ABG pO2 76.7 mmHg (80.0-100.0) L 05/03/23 15:26 ABG PO2/FiO2 Ratio 0 05/03/23 15: ABG HCO3 25.0 mmol/L (22-26) 05/03/23 15:26 ABG O2 Saturation 95.6 04/29/23 16:42 ABG Base Excess 1.0 mmol/L (-2.0-2.0) 05/03/23 15:26 Filiberto Test N/a 05/03/23 15:26 A-a O2 Gradient 4.3 mmHg (5-10) L 04/29/23 16:42 Hematocrit 33.9 % (42-52) L 05/03/23 15:26 Hgb O2 Saturation 94.1 % (95-100) L 04/29/23 16:42 Carboxyhemoglobin 1.3 %THgb (0.4-20.1) 04/29/23 16:42 Methemoglobin 0.3 % (0.4-1.5) L 04/29/23 16:42 Total Hemoglobin 10.7 g/dL (14-18) L 04/29/23 16:42 Sodium 135.0 mmol/L (131-143) 04/29/23 16:42 Potassium 4.2 mmol/L (3.5-5.0) 04/29/23 16:42 Glucose 111.0 mg/dL (70-115) 04/29/23 16:42 Ionized Calcium 1.2 mmol/L (1.1-1.4) 04/29/23 16:42 O2 Delivery Device Room air 05/03/23 15:26 O2 Liters/Min 3.0 % 04/13/23 12:06 FiO2 21.0 % 05/03/23 15:26 [employer] Professional ID Amh 05/03/23 15:26 Sodium 136 mmol/L (136-145) 05/12/23 05:12 Potassium 3.6 mmol/L (3.5-5.1) 05/12/23 05:12 Chloride 99 mmol/L (98-107) 05/12/23 05:12 Carbon Dioxide 23 mmol/L (22-29) 05/12/23 05:12 Anion Gap 17.6 (5-19) 05/12/23 05:12 BUN 4 mg/dL (6-20) L 05/12/23 05:12 Creatinine 0.5 mg/dL (0.7-1.2) L 05/12/23 05:12 GFR Calculation 204.3 mL/min (90-130) H 05/12/23 05:12 Glucose 112 mg/dL (65-115) 05/12/23 05:12 POC Glucose 106 mg/dL (70-110) 05/12/23 11:09 Calculated Osmolality 280 mOsm/kg (285-295) L 05/12/23 05:12 Lactic Acid 0.9 mmol/L (0.5-2.2) 05/03/23 16:11 Lactic Acid (Sepsis) 1.6 mmol/L (0.5-2.2) 04/07/23 02:18 Lactate 0.9 mmol/L (0.5-2.2) 04/30/23 16:30 Calcium 9.3 mg/dL (8.5-10.5) 05/12/23 05:12 Phosphorus 4.4 mg/dL (2.5-4.5) 05/06/23 05:51 Magnesium 2.1 mg/dL (1.7-2.3) 05/09/23 18:48 Ferritin 543 ng/mL (30-400) H 05/03/23 16:11 Total Bilirubin 0.2 mg/dL (0.15-1.2) 05/12/23 05:12 AST 16 U/L (0-40) 05/12/23 05:12 ALT 28 U/L (0-41) 05/12/23 05:12 Alkaline Phosphatase 96 U/L (40-130) 05/12/23 05:12 Ammonia 26 umol/L (16-60) 05/03/23 16:11 Creatine Kinase 35 U/L (39-308) L 04/06/23 19:52 Troponin T Baseline 45 ng/L (0-15) H 05/03/23 16:11 Troponin T 120 Minute 44.97 ng/L (0-15) H 05/03/23 18:19 Delta Troponin T -0.03 ABS# (0-10) L 05/03/23 18:19 Troponin T Hi Sens 6Hr 47.26 ng/L (0-15) H 05/03/23 22:31 Troponin T Hi Sens 6Hr Delta 2.26 ng/L (0-12) 05/03/23 22:31 C-Reactive Protein 14.9 mg/L (0.0-4.9) H 05/03/23 16:11 Total Protein 6.2 g/dL (6.6-8.7) L 05/12/23 05:12 Albumin 3.4 g/dL (3.5-5.2) L 05/12/23 05:12 Globulin 2.8 g/dL (1.3-4.6) 05/12/23 05:12 Triglycerides 280 mg/dL (0-150) H 04/28/23 02:57 Procalcitonin 0.15 ng/mL (0-0.5) 05/03/23 16:11 TSH 6.03 uIU/mL (0.27-4.20) H 05/03/23 16:11 Free T4 1.91 ng/dL (0.82-1.77) H 05/03/23 18:19 Urine Color Yellow (Yellow) 04/21/23 08:46 Urine Appearance Cloudy (CLEAR) A 04/21/23 08:46 Urine pH 5 (5-7) 04/21/23 08:46 Ur Specific Atkinson 1.020 (1.005-1.030) 04/21/23 08:46 Urine Protein 2+ (Negative) H 04/21/23 08:46 Urine Glucose (UA) Norm (Normal) 04/21/23 08:46 Urine Ketones Negative (Negative) 04/21/23 08:46 Urine Blood 3+ (Negative) H 04/21/23 08:46 Urine Nitrate Negative (Negative) 04/21/23 08:46 Urine Bilirubin Neg (Negative) 04/21/23 08:46 Urine Urobilinogen Neg mg/dL (Negative) 04/21/23 08:46 Ur Leukocyte Esterase 1+ (Negative) H 04/21/23 08:46 Urine RBC 40-50 /hpf (0-2) H 04/21/23 08:46 Urine WBC 0-4 /hpf (0-5) H 04/21/23 08:46 Ur Squamous Epith Cells 0-4 /hpf (0-5) H 04/21/23 08:46 Amorphous Sediment Not Reportable 04/21/23 08:46 Urine Bacteria Trace /hpf (NONE) 04/21/23 08:46 Hyaline Casts 0-4 /lpf H 04/06/23 20:35 Urine Mucus 1+ /hpf 04/21/23 08:46 Urine Yeast 3+ /hpf H 04/21/23 08:46 Nasal Influ A H1 2008 PCR Not detected (NOT DETECT) 05/08/23 11:46 Stl C. difficile Result See note A 04/11/23 18:55 Vancomycin Trough 19.6 ug/mL (10-15) H 04/15/23 09:51 Salicylates < 0.3 mg/dL (3-10) L 04/06/23 19:52 Urine Opiates Screen Negative ng/mL (Negative) 04/06/23 20:35 Acetaminophen < 5.0 ug/mL (10-30) L 04/06/23 19:52 Ur Barbiturates Screen Negative ng/mL (Negative) 04/06/23 20:35 Phenytoin 1.1 ug/mL (10-20) L 04/29/23 05:56 Valproic Acid 2.8 ug/mL (50-100) L 04/06/23 19:52 Lacosamide Level Cancelled 04/13/23 03:40 Levetiracetam 5.4 mcg/mL (6.0-46.0) L 05/01/23 11:08 Ur Phencyclidine Scrn Negative ng/mL (Negative) 04/06/23 20:35 Ur Amphetamines Screen Negative ng/mL (Negative) 04/06/23 20:35 U Benzodiazepines Scrn Negative ng/mL (Negative) 04/06/23 20:35 Urine Cocaine Screen Negative ng/mL (Negative) 04/06/23 20:35 U Marijuana (THC) Screen Negative ng/mL (Negative) 04/06/23 20:35 Ethyl Alcohol < 10 mg/dL (0-10) 04/06/23 19:52 MAXIMILIANO-1 Antibody <1.0 neg AI (<1.0 NEG) 04/11/23 18:33 SS-A/Ro IgG Antibody <1.0 neg AI (<1.0 NEG) 04/11/23 18:33 SS-B/La IgG Antibody <1.0 neg AI (<1.0 NEG) 04/11/23 18:33 Anti-nRNP/Sm IgG Ab <1.0 neg AI (<1.0 NEG) 04/11/23 18:33 Scl-70 Scleroderma Ab <1.0 neg AI (<1.0 NEG) 04/11/23 18:33 Anti-ds DNA IgG Ab <1 IU/mL 04/11/23 18:33 Adenovirus (PCR) Not detected (NOT DETECT) 05/08/23 11:46 C. pneumoniae DNA (PCR) Not detected (NOT DETECT) 05/08/23 11:46 C. difficile Tox (PCR) Not detected (NOT DETECTED) 05/01/23 05:36 Coronavirus 229E (PCR) Not detected (NOT DETECT) 05/08/23 11:46 Hepatitis A IgM Ab Non-reactive (Nonreactive) 04/12/23 04:20 Hep Bs Antigen Non-reactive (Nonreactive) 04/12/23 04:20 Hep Bs Antibody 4.7 (11.5-1000) L 04/12/23 04:20 Hep B Core Total Ab Non-reactive (Nonreactive) 04/12/23 04:20 Hepatitis C Antibody Non-reactive (Nonreactive) 04/12/23 04:20 HIV 1&2 Ab & HIV 1 Ag Non-reactive (Non-Reactiv) 04/12/23 04:20 HIV 1&2 Antibody Non-reactive (Non-Reactiv) 04/12/23 04:20 Human Metapneumovir PCR Not detected (NOT DETECT) 05/08/23 11:46 Influenza A (H1) PCR Not detected (NOT DETECT) 05/08/23 11:46 Influenza A (H3) PCR Not detected (NOT DETECT) 05/08/23 11:46 Influenza Type A (PCR) Not detected (NOT DETECT) 05/08/23 11:46 Influenza Type B (PCR) Not detected (NOT DETECT) 05/08/23 11:46 M. pneumoniae (PCR) Not detected (NOT DETECT) 05/08/23 11:46 Parainfluenza 1 (PCR) Not detected (NOT DETECT) 05/08/23 11:46 Parainfluenza 2 (PCR) Not detected (NOT DETECT) 05/08/23 11:46 Parainfluenza 3 (PCR) Not detected (NOT DETECT) 05/08/23 11:46 Parainfluenza 4 (PCR) Not detected (NOT DETECT) 05/08/23 11:46 RSV Type A (PCR) Not detected (NOT DETECT) 05/08/23 11:46 RSV Type B (PCR) Not detected (NOT DETECT) 05/08/23 11:46 Entero/Rhino (PCR) Not detected (NOT DETECT) 05/08/23 11:46 SARS-CoV-2 (PCR) Not detected (NOT DETECT) 05/08/23 11:46 MRSA (PCR) Not detected (NOT DETECTED) 04/09/23 01:40 Beta-(1,3)-D-Glucan <31 pg/mL 05/03/23 22:31 B-(1,3)-D-Glucan Intrp Negative 05/03/23 22:31 Blood Type O Positive 04/12/23 11:30 Rho(D) Type Positive 04/12/23 11:30 Antibody Screen Negative 04/12/23 11:30 Crossmatch See Detail 04/12/23 11:30 Vitals Last Vital Signs Temp 97.6 F 05/12/23 12:27 Pulse 118 H 05/12/23 12:27 Resp 18 05/12/23 12:27 BP 96/62 05/12/23 12:27 Pulse Ox 96 05/12/23 12:27 O2 Del Method Room Air 05/12/23 12:27 O2 Flow Rate 95 05/12/23 07:23 Discharge Plan Discharge Patient Disposition: Xfer SNF Condition: Stable Prescriptions: New metoprolol succinate [Toprol XL] 25 mg tablet extended release 24 hr 12.5 mg PO DAILY Qty: 30 0RF diltiazem HCl [Cardizem] 30 mg tablet 30 mg PO Q8H Qty: 90 0RF Rx Instructions: hold if bp systolic < 90 levothyroxine 50 mcg Tablet 50 mcg peg-tube QAM Qty: 30 0RF sertraline 100 mg Tablet 100 mg peg-tube QAM Qty: 30 0RF levetiracetam [Keppra] 1,000 mg tablet 1,000 mg PO BID Qty: 60 0RF Dificid 200 mg tablet 200 mg feeding tube BID 10 Days Qty: 20 0RF Continued albuterol sulfate [ProAir HFA] 90 mcg/actuation HFA aerosol inhaler 1 inh inhalation QID PRN (Reason: Shortness Of Breath) acetaminophen 500 mg Tablet 1,000 mg PO Q6H PRN (Reason: Pain) fluticasone propionate [Flonase Allergy Relief] 50 mcg/actuation spray,suspension 2 spray INTRANASAL DAILY PRN (Reason: Allergy Symptoms) Rx Instructions: administer into each nostril Discontinued triamcinolone acetonide 0.1 % cream 1 applic topical BID 14 Days Qty: 80 0RF trazodone 50 mg tablet 100 mg PO BEDTIME PRN (Reason: insomnia) cetirizine 10 mg tablet 10 mg PO QAM sertraline 100 mg tablet 100 mg PO QAM montelukast 10 mg tablet 10 mg PO BEDTIME levothyroxine 75 mcg tablet 75 mcg PO QAM pantoprazole 40 mg tablet,delayed release (DR/EC) 40 mg PO QAM levetiracetam 100 mg/mL Solution 500 mg PO BID 30 Days Qty: 300 1RF Valtoco 5 mg/spray (0.1 mL) spray,non-aerosol 5 mg intranasal Q4H PRN (Reason: Seizure) Qty: 2 0RF Discharge Orders: Discharge Order (Routine); Ordered 05/12/23 Ordered By: Shelbie Zheng Referrals: Marcel Ingram M.D [Physician] - 2 weeks (cardiomyopathy, sinus tachycardia) Shima Larson FNP [Primary Care Provider] - 4-7 days Discharge Diet: Start new tube feeds as directed Discharge Activity: Increase activity as tolerated Patient Instructions: Hyponatremia (ED), Benzodiazepine Use Disorder (ED), Dementia (ED), Non-diabetic Hypoglycemia (ED), Hypoglycemia in a Person with Diabetes (ED), Concussion (ED), Alcohol Intoxication (ED), Subarachnoid Hemorrhage (GEN), Altered Mental Status (ED), GI Discharge Instructions, Opioid Safety Activity Restrictions/Additional Instructions: Please follow up with neurology Dr. Siva Contreras at [facility] after dc within 4-7 days. Jevity 1.5 - 240 mls or 1 carton - to be given @ 8am/ noon/ 4pm/ 8pm, with 60 mls FWF before and after bolus. Begin with 120 mls for first two bolus feeds, then full strength of 240 mls if tolerated by patient. *If wt loss, recommend additional 120-240 mls with 8pm feed Discharge Attestations Time Spent in Discharge Care*: greater than 30 min Quality Metrics Clinical Quality Measures [ No reported AMI, CVA or VTE this stay] Coding Level of Care Code 38176 Total time (in minutes) for Discharge: 65 Diagnoses Sinus tachycardia R00.0 Intractable epilepsy G40.919 C. difficile colitis A04.72 Difficulty swallowing R13.10 Protein-energy malnutrition E46
--- NOTE | 2023-05-12 14:22 | PC.NURSE ---
This nurse called report to Vivian at [facility]. Updated on patients history and current status. All questions addressed and answered at this time.
[2023-05-12 18:01] LABS: Glucose Point of Care 97 mg/dL (70-110)
[2023-06-06 15:52] LABS: Lacosamide (Vimpat) 2.2
== END 2023-05-12 18:10 | disposition skilled nursing facility (03) | DRG 871 ==
LOC: ER 21:49 → ICU 22:10 → MEDSURG 04-08 15:32 → ICU 04-11 16:02 → MEDSURG 04-19 14:22 → ICU 04-29 17:08 → MEDSURG 05-01 13:57
PROVIDERS: Family Medicine; Internal Medicine; Psychiatry & Neurology Neurology; Student in an Organized Health Care Education/Training Program; Surgery; Admitting Provider Internal Medicine; Emergency Provider Emergency Medicine; PCP Nurse Practitioner Family; Visit Provider Internal Medicine
PROC: 0DJ08ZZ Inspection of Upper Intestinal Tract, Via Natural or Artificial Opening Endoscopic (ICD-10-PCS; CPT 43235; principal; 2023-05-10 11:00)
PROC: 0DH63UZ Insertion of Feeding Device into Stomach, Percutaneous Approach (ICD-10-PCS; CPT 43246; 2023-05-10 11:00)
DX: A41.9 Sepsis, unspecified organism (principal); E43 Unspecified severe protein-calorie malnutrition; J18.9 Pneumonia, unspecified organism; R65.21 Severe sepsis with septic shock; R57.1 Hypovolemic shock; K56.2 Volvulus; G93.41 Metabolic encephalopathy; A04.72 Enterocolitis due to Clostridium difficile, not specified as recurrent; G40.919 Epilepsy, unspecified, intractable, without status epilepticus; E87.1 Hypo-osmolality and hyponatremia; F33.9 Major depressive disorder, recurrent, unspecified; K92.0 Hematemesis; T76.01XA Adult neglect or abandonment, suspected, initial encounter; K56.600 Partial intestinal obstruction, unspecified as to cause; B37.49 Other urogenital candidiasis; R00.0 Tachycardia, unspecified; R13.10 Dysphagia, unspecified; Z68.22 Body mass index [BMI] 22.0-22.9, adult; F81.9 Developmental disorder of scholastic skills, unspecified; E03.9 Hypothyroidism, unspecified; F41.1 Generalized anxiety disorder; F41.0 Panic disorder [episodic paroxysmal anxiety]; E86.0 Dehydration; B35.6 Tinea cruris; R21 Rash and other nonspecific skin eruption; E83.42 Hypomagnesemia; E87.6 Hypokalemia; F17.220 Nicotine dependence, chewing tobacco, uncomplicated; J45.909 Unspecified asthma, uncomplicated; E83.39 Other disorders of phosphorus metabolism; D64.9 Anemia, unspecified; Z74.01 Bed confinement status; Z87.440 Personal history of urinary (tract) infections; Z11.52 Encounter for screening for COVID-19; Z75.1 Person awaiting admission to adequate facility elsewhere; Z88.8 Allergy status to other drugs, medicaments and biological substances
CPT/HCPCS: 36415; 36416; 36430; 36573; 36592; 36600; 43246; 51702; 70450; 70544; 70551; 71045; 71250; 71260; 71275; 72129; 72132; 72157; 74177; 74230; 76536; 80048; 80051; 80053; 80164; 80177; 80185; 80202; 80299; 80306; 80307; 81001; 82140; 82330; 82550; 82728; 82803; 82805; 82962; 83605; 83735; 84100; 84145; 84439; 84443; 84478; 84484; 85025; 85362; 85378; 85384; 85610; 85651; 85730; 86140; 86225; 86235; 86403; 86705; 86706; 86709; 86803; 86850; 86900; 86920; 87040; 87045; 87077; 87086; 87106; 87150; 87186; 87205; 87324; 87340; 87427; 87449; 87486; 87493; 87581; 87633; 87641; 87806; 92507; 92523; 92526; 92610; 92611; 93005; 93010; 93306; 93970; 94640; 94664; 94799; 95822; 96365; 96366; 96367; 96372; 96375; 96376; 97110; 97161; 97530; 99291; A4222; A9577; C1751; C9113; C9254; J0131; J0133; J0283; J1100; J1200; J1644; J1650; J1940; J1953; J2060; J2185; J2248; J2270; J2405; J2543; J2704; J3370; J3475; J3480; J3490; J7030; J7042; J7050; J7120; J7613; P9016; Q2009; Q3014; Q9967

== ENCOUNTER → 2023-07-15 10:27 | Outpatient (BNVA) | payer MEDICAID, SELFPAY | PROVIDERS: PCP Nurse Practitioner Family; Visit Provider Internal Medicine Cardiovascular Disease | DX: R00.0 Tachycardia, unspecified (principal); F41.1 Generalized anxiety disorder; F33.1 Major depressive disorder, recurrent, moderate; L89.313 Pressure ulcer of right buttock, stage 3; E63.9 Nutritional deficiency, unspecified; E88.9 Metabolic disorder, unspecified; I43 Cardiomyopathy in diseases classified elsewhere | CPT/HCPCS: 99204 ==

== ENCOUNTER → 2024-01-13 10:48 | Outpatient (BNVA) | payer MEDICAID, SELFPAY | PROVIDERS: PCP Nurse Practitioner Family; Visit Provider Internal Medicine Cardiovascular Disease | DX: R00.0 Tachycardia, unspecified (principal); E63.9 Nutritional deficiency, unspecified; E88.9 Metabolic disorder, unspecified; I43 Cardiomyopathy in diseases classified elsewhere; F41.1 Generalized anxiety disorder; F33.1 Major depressive disorder, recurrent, moderate; L89.323 Pressure ulcer of left buttock, stage 3 | CPT/HCPCS: 99213 ==

== ENCOUNTER 2024-05-03 10:43 | Observation (INO) | payer MEDICAID, SELFPAY ==
[2024-05-03] VITALS (13 sets, daily range): BP systolic 100–140; BP diastolic 53–79; PULSE 91–118; RESP 16–18; TEMP 36.7–37.4; O2SAT 90–98
--- NOTE | 2024-05-03 10:54 | ECG_ITS ---
Hosted [facility] Test Date: 2024-05-03 Pat Name: Hussein Man Department: Room: Gender: Male Director Of Cardiology Service Line: : 2000 Requested By: Jasmeet Mike Order Number: [id number] Reading MD: AVI BRISCOE Measurements Intervals [place] Rate: 87 P: 39 NE: 162 QRS: 14 QRSD: 84 T: 63 QT: 338 QTc: 409 Interpretive Statements SINUS RHYTHM NONSPECIFIC T-WAVE ABNORMALITY Compared to ECG 05/03/2023 21:12:42 Sinus tachycardia no longer present T-wave abnormality still present Electronically Signed On 05-03-2024 18:53:38 DATA ENTRY PROCESSOR by AVI BRISCOE [email or web address]
--- NOTE | 2024-05-03 10:54 | CT_ITS ---
WS: [id number] CT HEAD NONCONTRAST HISTORY: History of brain tumor TECHNIQUE: Contiguous axial imaging performed through the brain. Bone and soft tissue windows. Sagitt al and coronal reformats reviewed. All CT scans at [facility] use at least one of these dose optimization techniques: automated exposure control; mA and/or kV adjustment per patient size (includ es targeted exams where dose is matched to clinical indication); or iterative reconstruction. DLP: 1027.18 mGy.cm COMPARISON: 04/11/2023, 04/29/2023 No acute intracranial hemorrhage, midline shift or mass effect. As compared to the prior CT examinations there is effacement diffusely of the sulci. Sylvian fissures are nearly completely effaced. There were prominent extra-axial spaces on the prior examination but these are no longer present. There is no midline shift. No inferior displacement of the cerebellar to nsils. No obvious cerebral edema. No obvious infarct. Ventricles: Ventricles are more slitlike than they were on the prior examinations. Paranasal sinuses: As visualized are clear. Mastoid air cells: Well pneumatized. Calvarium and scalp: Skull is intact with no soft tissue edema or swelling. CT/CT head wo con* [id number] IMPRESSION: 1. Diffuse, new effacement of the sulci and extra-axial spaces as compared to 04/29/2023. There is no midline shift or inferior displacement of the cerebella r tonsils. Ventricles are more slitlike than on the prior examinations. Finding s are suspicious for cerebral edema. No obvious infarct. 2. No intracranial hemorrhage. Notified Jasmeet Fuentes DO at 05/03/2024 11:40 AM.
--- NOTE | 2024-05-03 10:55 | XR_ITS ---
WS: [id number] Portable AP upright chest, 05/03/2024 Clinical Data: dyspnea/cough Comparison: Portable chest, 05/09/2023 Findings: No nodules, masses or effusions are seen. The heart is slightly enlarged from a poor inspir ation. The pulmonary vascularity is not increased. No pneumonia or pneumothorax is seen. XR/XR chest 1V portable [id number] Impression: Cardiomegaly
--- NOTE | 2024-05-03 11:13 | ED_ITS ---
HPI - Seizure 2 General: Chief Complaint: Seizure Stated Complaint: post seizure Time Seen by Provider: 05/03/24 10:48 History of Present Illness: HPI Narrative: 23-year-old male presents to the emergen cy room with complaints of having had a seizure. Patient has known history of seizure disorder he is on Keppra and Lamictal. He resides at a senior care. He is postictal when he first arrives later when we reexamined he was speaking in full sentences. We did call to the senior care that he was back at his baseline he does speak and interact but for the most part sounds as if he needs to be directly addressed to get much of a reaction of him. He has no injury does not appear to be in any pain. Seizure History: Yes Related Data Home Medications Medication Instructions Recorded Confirmed baclofen 20 mg tablet 20 mg PO BID 01/13/24 05/03/24 acetaminophen 325 mg tablet 650 mg PO Q4H PRN Pain 05/03/24 05/03/24 levothyroxine 50 mcg tablet 50 mcg PO DAILY 05/03/24 05/03/24 magnesium hydroxide 400 mg/5 mL 30 ml PO DAILY 05/03/24 05/03/24 oral suspension (Milk of Magnesia) metoprolol tartrate 25 mg tablet 12.5 mg PO DAILY 05/03/24 05/03/24 risperidone 1 mg tablet 1.5 mg PO BID 05/03/24 05/03/24 vitamin B complex-zinc 3.6 30 ml PO TID 05/03/24 05/03/24 mg-manganese 0.75 mg/15 mL oral liquid (Eldertonic) Previous Rx's Medication Instructions Recorded diltiazem HCl 30 mg tablet 30 mg PO Q8H #90 tabs 05/12/23 (Cardizem) levetiracetam 1,000 mg tablet 1,000 mg PO BID #60 tabs 05/12/23 (Keppra) sertraline 100 mg tablet 100 mg peg-tube QAM #30 tabs 05/12/23 lamotrigine 25 mg tablet (Lamictal) 50 mg (2 x 25 mg) PO BID 14 days 05/04/24 #56 tabs Allergies Allergy/AdvReac Type Severity Reaction Status Date / Time No Known Allergies Allergy Verified 01/13/24 10:55 Review of Systems 2 General: Reports: ROS unobtainable due to medical condition and ROS unobtainable due to mental status PFSH ED 2 PFSH: Medical History Cardiomyopathy due metabolic or nutritional disease Autism MDD (major depressive disorder) Tinea cruris Rash Self neglect Declining functional status Abnormal urinalysis Volvulus of intestine Partial small bowel obstruction Shock Acute hypokalemia Acute hypotension Altered mental status Intractable epilepsy Bicytopenia Generalized weakness Anemia Breakthrough seizure Hallux valgus (acquired) Chest pain Vitamin B12 deficiency Allergic rhinitis Vitamin D deficiency Urinary incontinence Hypothyroid Lt inguinal pain Intellectual disability Nicotine dependence, chewing tobacco, uncomplicated Muscle cramps Bilateral foot pain Panic disorder Hyperglycemia Chronic GERD Difficulty swallowing Anxiety Hearing loss in left ear Fever Encounter for screening for COVID-19 Mid back pain on left side Hemoptysis Constipation, chronic Benign tumor of pituitary gland Asthma Seasonal allergies Seizures Acute cystitis Gross hematuria Asthma Surgical History History of tonsillectomy and adenoidectomy Hx of hernia repair Family History Father Heart disease Social History Smoking and tobacco/nicotine status: never used tobacco/nicotine Quit status (tobacco/nicotine): has quit using Second hand smoke exposure: No Alcohol intake: never Substance/Drug Use: never Caregiver/support person: Yes Lives independently: No Housing: [facility] Marital status: Single service: No Current occupational status: disabled Current gender identity: Male Physical Exam 2 Const: ORIENTATION/CONSCIOUSNESS: Yes awake HENMT: COMMON NORMALS: normocephalic and atraumatic HEAD & SCALP: n ormocephalic and atraumatic Resp: COMMON NORMALS: normal respiratory effort, No retractions, No use of accessory muscles and clear to auscultation bilaterally AUSCULTATION: clear to auscultation bilaterally Cardio: COMMON NORMALS: regular rate, regular rhythm and No murmurs present (Cardio) RATE: regular rate RHYTHM: regular rhythm GI: COMMON NORMALS: Soft to palpation and No hepatosplenomegaly present A USCULTATION: Yes normoactive bowel sounds PALPATION: Yes Soft to palpation, No Tenderness to palpation present (GI), No Guarding due to palpation present (GI) and Yes No hepatosplenomegaly present Extremity: COMMON NORMALS: normal to inspection, capillary refill normal, no clubbing, cyanosis or edema, no calf tenderness and no pedal edema Skin: COMMON NORMALS: no rashes or lesions noted GENERAL SKIN EXAM: no rashes or lesions noted Course 2 Vital Signs: Vital signs: Vital Signs Temperature 97.6 F 05/04/24 11:42 Pulse Rate 96 05/04/24 13:51 Respiratory Rate 16 05/04/24 11:42 Blood Pressure 113/56 05/04/24 13:51 Pulse Oximetry 94 05/04/24 13:51 Oxygen Delivery Me thod Room Air 05/04/24 11:42 Oxygen Flow Rate 4 05/04/24 08:02 MDM - Seizure MDM Narrative Medical decision making narrative: Patient recovered resolved his postictal state we are going to make plans to discharge him back to the senior care and he had another seizure and then a third seizure. He was given another gram of Keppra also started on Depacon 1 g he is given 2 doses of Ativan of 2 mg each (1 dose after each seizure.). He remains postictal at this time. He did have increased swelling on his CT compared to previous CTs. Prior to original plans to discharge I had had Dr. Amado who is on-call for neurology come down and see the patient. She did not feel at that point that he needed to be admitted. We have made the arrangements for transfer back to the nursing homes and he had seizures and we changed him to an admission Dr. Amado will consult. Discussed with hospitalist orders written Lab Data 05/04/24 03:27 05/04/24 03:27 Labs: Radiology Impressions Head CT 05/03/24 10:54 IMPRESSION: 1. Diffuse, new effacement of the sulci and extra-axial spaces as compared to 04/29/2023. There is no midline shift or inferior displacement of the cerebellar tonsils. Ventricles are more slitlike than on the prior examinations. Findings are suspicious for cerebral edema. No obvious infarct. 2. No intracranial hemorrhage. Notified Jasmeet Fuentes DO at 05/03/2024 11:40 AM. Chest X-Ray 05/03/24 10:55 Impression: Cardiomegaly Laboratory Results WBC 8.36 10^3/uL (3.29-11.43) 05/03/24 11:42 RBC 4.57 10^6/uL (3.85-5.65) 05/03/24 11:42 Hgb 12.40 g/dL (11.27-16.99) 05/03/24 11:42 Hct 39.2 % (37-53) 05/03/24 11:42 MCV 85.8 fl (82-101) 05/03/24 11:42 MCH 27.1 pg (27-33) 05/03/24 11:42 MCHC 31.6 g/dL (30-55) 05/03/24 11:42 RDW 13.7 % (12.1-15.1) 05/03/24 11:42 Plt Count 322 10^3/cmm (157-399) 05/03/24 11:42 MPV 9.6 fL (7.4-10.4) 05/03/24 11:42 Neut % (Auto) 85.2 % 05/03/24 11:42 Lymph % (Auto) 6.1 % 05/03/24 11:42 [place] % (Auto) 6.9 % 05/03/24 11:42 Eos % (Auto) 1.0 % 05/03/24 11:42 Baso % (Auto) 0.2 % 05/03/24 11:42 Neut # (Auto) 7.12 10^3/uL (1.8-7.7) 05/03/24 11:42 Lymph # (Auto) 0.5 10^3/uL (0.8-4.8) L 05/03/24 11:42 [place] # (Auto) 0.6 10^3/uL (0.2-0.9) 05/03/24 11:42 Eos # (Auto) 0.1 10^3/uL (0.0-0.8) 05/03/24 11:42 Baso # (Auto) 0.0 10^3/uL (0.0-0.1) 05/03/24 11:42 Nucleated RBC % (auto) 0 % 05/03/24 11:42 Nucleated RBCs # 0.0 /100WBC 05/03/24 11:42 Sodium 137 mmol/L (136-145) 05/03/24 11:42 Potassium 3.8 mmol/L (3.5-5.1) 05/03/24 11:42 Chloride 101 mmol/L (98-107) 05/03/24 11:42 Carbon Dioxide 25 mmol/L (22-29) 05/03/24 11:42 Anion Gap 14.8 (5-19) 05/03/24 11:42 BUN 12 mg/dL (6-20) 05/03/24 11:42 Creatinine 0.3 mg/dL (0.7-1.2) L 05/03/24 11:42 GFR Calculation 365.3 mL/min (90-130) H 05/03/24 11:42 Glucose 92 mg/dL (65-115) 05/03/24 11:42 Calculated Osmolality 283 mOsm/kg (285-295) L 05/03/24 11:42 Calcium 9.5 mg/dL (8.5-10.5) 05/03/24 11:42 Magnesium 1.7 mg/dL (1.7-2.3) 05/03/24 11:42 Total Bilirubin 0.3 mg/dL (0.15-1.2) 05/03/24 11:42 AST 22 U/L (0-40) 05/03/24 11:42 ALT 17 U/L (0-41) 05/03/24 11:42 Alkaline Phosphatase 106 U/L (40-130) 05/03/24 11:42 Total Protein 6.9 g/dL (6.6-8.7) 05/03/24 11:42 Albumin 3.8 g/dL (3.5-5.2) 05/03/24 11:42 Globulin 3.1 g/dL (1.3-4.6) 05/03/24 11:42 Urine Color Yellow (Yellow) 05/03/24 17:07 Urine Appearance Clear (CLEAR) 05/03/24 17:07 Urine pH 5.5 (5-7) 05/03/24 17:07 Ur Specific [place] 1.024 (1.005-1.030) 05/03/24 17:07 Urine Protein Negative (Negative) 05/03/24 17:07 Urine Glucose (UA) Negative (Normal) 05/03/24 17:07 Urine Ketones Negative (Negative) 05/03/24 17:07 Urine Blood 2+ (Negative) A 05/03/24 17:07 Urine Nitrate Negative (Negative) 05/03/24 17:07 Urine Bilirubin Negative (Negative) 05/03/24 17:07 Urine Urobilinogen 1.0 mg/dL (Negative) 05/03/24 17:07 Ur Leukocyte Esterase Negative (Negative) 05/03/24 17:07 Urine RBC 51-100 /hpf (0-2) H 05/03/24 17:07 Urine WBC 0-5 /hpf (0-5) 05/03/24 17:07 Ur Squamous Epith Cells 0-5 /hpf (0-5) 05/03/24 17:07 Amorphous Sediment Not Reportable 05/03/24 17:07 Urine Bacteria None seen /hpf (NONE) 05/03/24 17:07 Hyaline Casts 0.40 /lpf 05/03/24 17:07 Gastric Occult Blood Negative (Negative) 05/03/24 11:20 Levetiracetam 46.1 mcg/mL (6.0-46.0) H 05/03/24 16:39 All radiology interpretation(s) finalized by discharge Discharge Plan Discharge Patient Disposition: Placed in Observation Admit Provider: Wen Lopez Clinical Impression: Generalized seizure, Abnormal CT of the head Condition: Stable Discharge Orders: Discharge Order (Routine); Ordered 05/04/24 Ordered By: Wen Lopez Discharge Diet: Usual diet Discharge Activity: Increase activity as tolerated Coding Level of Care Code ED Tow Truck Dispatcher for Marcus Cobos
--- NOTE | 2024-05-03 11:18 | PC.PHAR ---
[facility]
[2024-05-03 12:13] LABS: Basophils % 0.2 %; Eosinophils # 0.1 10^3/uL (0.0-0.8); Hematocrit 39.2 % (37-53); Lymphocytes # 0.5 10^3/uL (0.8-4.8); Lymphocytes % 6.1 %; Mean Corpuscular HGB Conc 31.6 g/dL (30-55); Mean Corpuscular Hemoglobin 27.1 pg (27-33); Mean Corpuscular Volume 85.8 fl (82-101); Mean Platelet Volume 9.6 fL (7.4-10.4); Monocytes # 0.6 10^3/uL (0.2-0.9); Monocytes % 6.9 %; Neutrophils # 7.12 10^3/uL (1.8-7.7); Neutrophils % 85.2 %; Nucleated Red Blood Cells % 0 %; Platelet Count 322 10^3/cmm (157-399); Red Blood Count 4.57 10^6/uL (3.85-5.65); Red Cell Distribution Width 13.7 % (12.1-15.1); White Blood Count 8.36 10^3/uL (3.29-11.43)
[2024-05-03 12:25] LABS: Gastricult Occult Blood Negative (Negative)
[2024-05-03 12:39] LABS: Alanine Aminotransferase 17 U/L (0-41); Albumin Level 3.8 g/dL (3.5-5.2); Alkaline Phosphatase 106 U/L (40-130); Anion Gap 14.8 (5-19); Aspartate Amino Transferase 22 U/L (0-40); Blood Urea Nitrogen 12 mg/dL (6-20); Calcium 9.5 mg/dL (8.5-10.5); Carbon Dioxide 25 mmol/L (22-29); Chloride 101 mmol/L (98-107); Creatinine Clr Calc Pharmacy 330.5249; Globulin 3.1 g/dL (1.3-4.6); Glomerular Filtration Rate 365.3 mL/min (90-130); Glucose 92 mg/dL (65-115); Magnesium 1.7 mg/dL (1.7-2.3); Osmolality Calculated 283 mOsm/kg (285-295); Potassium 3.8 mmol/L (3.5-5.1); Sodium 137 mmol/L (136-145); Total Bilirubin 0.3 mg/dL (0.15-1.2); Total Protein 6.9 g/dL (6.6-8.7)
[2024-05-03] MEDS: LORazepam 2 mg/mL INJ 1 mL IVP ×2 (15:44→18:21)
[2024-05-03] MEDS: levETIRAcetam 1,000 MG/100 ML PREMIX 400 MG IV (15:44)
[2024-05-03] MEDS: valproic acid inj 1,000 MG in sodium chloride 0.9% 50 ML 55 MG IV (16:44)
--- NOTE | 2024-05-03 16:57 | PC.NURSE ---
PT was on bedside monitor waiting for medicaid ride when oxygen saturation dropped to 80's. Nurse to room PT appeared to be having a seizure, physician to bedside, new orders received.
--- NOTE | 2024-05-03 17:01 | PC.NURSE ---
attempted to call report back to edwardo morales CT, no answer.
[2024-05-03 17:14] LABS: Bilirubin Urine Negative (Negative); Blood Urine 2+ (Negative); Glucose Urine UA Negative (Normal); Ketones Urine Negative (Negative); Leukocyte Esterase Urine Negative (Negative); Nitrate Urine Negative (Negative); Protein Urine Negative (Negative); Specific Gravity, Urine 1.024 (1.005-1.030); Urine Appearance Clear (CLEAR); Urine Color Yellow (Yellow); pH Urine 5.5 (5-7)
[2024-05-03 17:18] LABS: Add Urine Microscopic? YES; Bacteria Urine None Seen /hpf; RBC Urine 51-100 /hpf (0-2); Squamous Epithelial Cell Urine 0-5 /hpf (0-5); WBC Urine 0-5 /hpf (0-5)
[2024-05-03 17:32] LABS: Add Urine Culture? Yes
--- NOTE | 2024-05-03 17:44 | PM.HP ---
Providers/Chief Complaint Primary Care Provider: SPENSER Quezada Chief Complaint: post seizure History of Present Illness Hussein Man is a 23 year old male with history of autism, cardiomyopathy due to metabolic or nutritional cause, MDD, declining functional status, seizure disorder, hypothyroidism, panic disorder, chronic GERD, benign pituitary tumor, was brought in by EMS from assisted for seizure episode. He had a CT head which showed diffuse cerebral edema, neurology consulted in ED and recommended no further management. But then he had a second episode of seizure in the ED and hence being admitted for further evaluation. He takes Keppra 1 g twice daily. During my assessment, he was postictal, was able to open eyes occasionally and answer questions with few words. Denied any complaint of pain. As per the ER bedside nurse, he was found to have posturing of his body, no tonic-clonic seizure activity noted, drooling and unresponsive during seizure-like episode. He received IV valproic acid 1 g, Ativan 2 mg and IV Keppra 1 g in ED. family not available at bedside to obtain further information, as per assisted records he is bed bound. He was also found to be tachycardic in ER at 110 to 115 bpm. Most recently visited Dr. Mariee of in cardiology outpatient department, has known history of sinus tachycardia and cardiomyopathy. Review of Systems General: Reports: ROS unobtainable due to mental status Medications/Allergies Home Medications Medication Instructions Recorded Confirmed Last Taken Type diltiazem HCl 30 mg tablet 30 mg PO Q8H #90 tabs 05/12/23 05/03/24 05/03/24 Rx (Cardizem) levetiracetam 1,000 mg tablet 1,000 mg PO BID #60 tabs 05/12/23 05/03/24 05/03/24 Rx (Keppra) sertraline 100 mg tablet 100 mg peg-tube QAM #30 tabs 05/12/23 05/03/24 05/03/24 Rx baclofen 20 mg tablet 20 mg PO BID 01/13/24 05/03/24 05/03/24 History acetaminophen 325 mg tablet 650 mg PO Q4H PRN Pain 05/03/24 05/03/24 Unknown History levothyroxine 50 mcg tablet 50 mcg PO DAILY 05/03/24 05/03/24 05/02/24 History magnesium hydroxide 400 mg/5 mL 30 ml PO DAILY 05/03/24 05/03/24 Unknown History oral suspension (Milk of Magnesia) metoprolol tartrate 25 mg tablet 12.5 mg PO DAILY 05/03/24 05/03/24 05/03/24 History risperidone 1 mg tablet 1.5 mg PO BID 05/03/24 05/03/24 05/03/24 History vitamin B complex-zinc 3.6 30 ml PO TID 05/03/24 05/03/24 Unknown History mg-manganese 0.75 mg/15 mL oral liquid (Eldertonic) Allergies Allergy/AdvReac Type Severity Reaction Status Date / Time No Known Allergies Allergy Verified 01/13/24 10:55 PFSH Acute PFSH: Medical History Cardiomyopathy due metabolic or nutritional disease Autism MDD (major depressive disorder) Tinea cruris Rash Self neglect Declining functional status Abnormal urinalysis Volvulus of intestine Partial small bowel obstruction Shock Acute hypokalemia Acute hypotension Altered mental status Intractable epilepsy Bicytopenia Generalized weakness Anemia Breakthrough seizure Hallux valgus (acquired) Chest pain Vitamin B12 deficiency Allergic rhinitis Vitamin D deficiency Urinary incontinence Hypothyroid Lt inguinal pain Intellectual disability Nicotine dependence, chewing tobacco, uncomplicated Muscle cramps Bilateral foot pain Panic disorder Hyperglycemia Chronic GERD Difficulty swallowing Anxiety Hearing loss in left ear Fever Encounter for screening for COVID-19 Mid back pain on left side Hemoptysis Constipation, chronic Benign tumor of pituitary gland Asthma Seasonal allergies Seizures Acute cystitis Gross hematuria Asthma Surgical History History of tonsillectomy and adenoidectomy Hx of hernia repair Family History Father Heart disease Social History Smoking and tobacco/nicotine status: never used tobacco/nicotine Quit status (tobacco/nicotine): has quit using Second hand smoke exposure: No Alcohol intake: never Substance/Drug Use: never Caregiver/support person: Yes Lives independently: No Housing: Jail Marital status: Single service: No Current occupational status: disabled Current gender identity: Male Vitals/I&O/Wt Last Vital Signs Temp 99.3 F 05/03/24 16:59 Pulse 118 H 05/03/24 16:54 Resp 16 05/03/24 16:54 BP 101/60 05/03/24 16:54 Pulse Ox 97 05/03/24 16:54 O2 Del Method Room Air 05/03/24 16:42 05/03/24 05/03/24 05/03/24 06:59 14:59 22:59 Intake Total 100 / 100 Balance 100 / 100 Weight last 48 hrs Weight 69.853 kg Physical Exam Narrative: He is postictal, drowsy, not comprehensive but opens eyes to verbal stimuli Chest clear to auscultation bilaterally Cardiovascular normal heart sounds Abdomen soft nontender nondistended normal bowel sounds Extremities no edema noted bilaterally Data 05/03/24 11:42 05/03/24 11:42 A&P Assessment and plan (1) Generalized seizure: (2) Pressure ulcer of right buttock, stage 2: (3) Pressure ulcer of left buttock, stage 3: (4) Cardiomyopathy due metabolic or nutritional disease: (5) Sinus tachycardia: (6) Major depressive disorder, recurrent, moderate: Plan Hussein Man is a 23 year old male with history of autism, cardiomyopathy due to metabolic or nutritional cause, MDD, declining functional status, seizure disorder, hypothyroidism, panic disorder, chronic GERD, benign pituitary tumor, was brought in by EMS from assisted for seizure episode. #Intractable seizure-neurology consulted in ED He received IV valproic acid 1 g, IV Keppra 1 g and IV Ativan 2 mg in ER for seizure episode Currently postictal. Will follow-up neurology for further recommendation Continue ANALYTICAL RESEARCH PROGRAM MANAGER p.o. Keppra 1 g twice daily and baclofen N.p.o. for now CXR showed cardiomegaly. CTH IMPRESSION: 1. Diffuse, new effacement of the sulci and extra-axial spaces as compared to 04/29/2023. There is no midline shift or inferior displacement of the cerebellar tonsils. Ventricles are more slitlike than on the prior examinations. Findings are suspicious for cerebral edema. No obvious infarct. 2. No intracranial hemorrhage. #Tachycardia and cardiomyopathy-continue ANALYTICAL RESEARCH PROGRAM MANAGER diltiazem, metoprolol #Hypothyroidism-continue ANALYTICAL RESEARCH PROGRAM MANAGER levothyroxine #MDD-continue ANALYTICAL RESEARCH PROGRAM MANAGER sertraline DVT prophylaxis with subcutaneous Lovenox GI prophylaxis with IV Pepcid 20 mg twice daily CODE STATUS, family not available, he will be full code by default. Attestations Medical Necessity Statement*: He needs continued hospitalization not crossing 2 midnights for management of seizures neurology consult and adjustment of medications,. Time Spent in Patient Care: 40 minutes Coding Level of Care Code Acute Code for Chg Fwd Diagnoses Generalized seizure R56.9 Pressure ulcer of right buttock, stage 2 L89.312 Pressure ulcer of left buttock, stage 3 L89.323 Cardiomyopathy due metabolic or nutritional disease E63.9; E88.9; I43 Sinus tachycardia R00.0 Major depressive disorder, recurrent, moderate F33.1 Time Spent (min) 40
[2024-05-03] MEDS: sodium chloride 0.9% 1,000 ML 40 ML IV (20:27)
[2024-05-03] MEDS: baclofen 10 mg Tablet 20 MG PO (20:28)
[2024-05-03] MEDS: levETIRAcetam 500 mg Tablet 1000 MG PO (20:28)
[2024-05-03] MEDS: enoxaparin 40 mg/0.4 mL Syringe SUBCUT (20:29)
[2024-05-03] MEDS: famotidine 20 mg/2 mL INJ IVP (20:29)
[2024-05-03] MEDS: dilTIAZem 30 mg Tablet PO (20:29)
[2024-05-04] VITALS (8 sets, daily range): BP systolic 105–126; BP diastolic 51–72; PULSE 96–104; RESP 13–21; TEMP 36.4–37.4; O2SAT 85–95
[2024-05-04] MEDS: dilTIAZem 30 mg Tablet PO ×2 (01:57→11:37)
[2024-05-04 04:20] LABS: Basophils % 0.4 %; Eosinophils % 0.6 %; Hematocrit 38.7 % (37-53); Lymphocytes # 1.1 10^3/uL (0.8-4.8); Lymphocytes % 15.7 %; Mean Corpuscular Hemoglobin 26.4 pg (27-33); Mean Corpuscular Volume 85.2 fl (82-101); Mean Platelet Volume 9.5 fL (7.4-10.4); Monocytes # 0.4 10^3/uL (0.2-0.9); Monocytes % 5.6 %; Neutrophils # 5.56 10^3/uL (1.8-7.7); Neutrophils % 77.4 %; Nucleated Red Blood Cells % 0 %; Platelet Count 310 10^3/cmm (157-399); Red Blood Count 4.54 10^6/uL (3.85-5.65); Red Cell Distribution Width 13.8 % (12.1-15.1); White Blood Count 7.18 10^3/uL (3.29-11.43)
[2024-05-04 04:46] LABS: Alanine Aminotransferase 13 U/L (0-41); Albumin Level 3.9 g/dL (3.5-5.2); Alkaline Phosphatase 106 U/L (40-130); Anion Gap 15.9 (5-19); Aspartate Amino Transferase 19 U/L (0-40); Blood Urea Nitrogen 8 mg/dL (6-20); Calcium 9.9 mg/dL (8.5-10.5); Carbon Dioxide 26 mmol/L (22-29); Chloride 101 mmol/L (98-107); Creatinine Clr Calc Pharmacy 330.5249; Globulin 2.7 g/dL (1.3-4.6); Glomerular Filtration Rate 365.3 mL/min (90-130); Glucose 74 mg/dL (65-115); Magnesium 1.8 mg/dL (1.7-2.3); Osmolality Calculated 285 mOsm/kg (285-295); Potassium 3.9 mmol/L (3.5-5.1); Sodium 139 mmol/L (136-145); Thyroid Stimulating Hormone 0.02 uIU/mL (0.27-4.20); Total Bilirubin 0.4 mg/dL (0.15-1.2); Total Protein 6.6 g/dL (6.6-8.7)
[2024-05-04] MEDS: sertraline 100 mg Tablet PEG-TUBE (06:16)
[2024-05-04] MEDS: famotidine 20 mg/2 mL INJ IVP (06:16)
[2024-05-04] MEDS: metoprolol tartrate 25 mg Tablet 12.5 MG PO (08:50)
[2024-05-04] MEDS: potassium chloride ER 20 mEq Tablet 40 MEQ PO (08:50)
[2024-05-04] MEDS: magnesium oxide 400 mg tablet PO (08:50)
[2024-05-04] MEDS: baclofen 10 mg Tablet 20 MG PO (08:51)
[2024-05-04] MEDS: levETIRAcetam 500 mg Tablet 1000 MG PO (08:51)
[2024-05-04] MEDS: magnesium hydroxide 30 mL UDC PO (08:51)
[2024-05-04] MEDS: levothyroxine 50 mcg Tablet PO (08:51)
--- NOTE | 2024-05-04 08:59 | PM.CONSULT ---
Providers/Reason For Consult Consulting Physician/Specialty*: Dr. Jasmeet Fuentes Reason for Consult*: Seizures [id number] Attending Physician: Wen Lopez MD Primary Care Provider: SPENSER Quezada History of Present Illness History of Present Illness Hussein Man is a 23 year old male unknown to me. He was sent to the ER after a generalized seizure. He was given a loading dose of Keppra and I talked with Dr. Fuentes and advised outpatient neurology follow-up. Unfortunately, he had another seizure with prolonged postictal state and was admitted. He was seen by Dr. Sánchez 04/11/2023 for seizures [id number]. He had thrombocytopenia and was taken off of Depakote and started on Keppra. His EEG showed diffuse nonspecific slowing consistent with his developmental disorder. He was described as having a seizure that consisted of inward rotation of the arms, repetitive. He was treated with IV Vimpat and Keppra. He was sick with C. difficile and was treated with IV antibiotics. Dr. Sánchez also started him on fosphenytoin. He had an extremely prolonged hospitalization because of C. difficile. Prior to discharge Dr. Zheng described that the patient was able to tell her that he had 3 CAT scans, that he was in the hospital and could not remember any of the details of his stay. He resides at [facility]. He is normally in a wheelchair. When he came to cardiac clinic in January he was in a wheelchair with bilateral leg edema. He was eating solid food but still had a feeding tube. He was on Keppra 1000 mg twice daily at that time. He was not on any other anticonvulsants. He has a baseline of cardiomyopathy and autism. He is considered to be allergic to Depakote because he was on it previously and developed thrombocytopenia. He had an MRI of the brain 04/06/2023 there was normal. MRA was also normal at that time, ordered by Dr. Bustos. That study did show mild diffuse atrophy, nonspecific. His current CAT scan suggest that he does not have atrophy. Review of Systems Narrative: He has not had any fever in the hospital. No difficulty with respirations. His behavior has been uncomplicated. No further seizures since admission. Medications/Allergies Home Medications Medication Instructions Recorded Confirmed Last Taken Type diltiazem HCl 30 mg tablet 30 mg PO Q8H #90 tabs 05/12/23 05/03/24 05/03/24 Rx (Cardizem) levetiracetam 1,000 mg tablet 1,000 mg PO BID #60 tabs 05/12/23 05/03/24 05/03/24 Rx (Keppra) sertraline 100 mg tablet 100 mg peg-tube QAM #30 tabs 05/12/23 05/03/24 05/03/24 Rx baclofen 20 mg tablet 20 mg PO BID 01/13/24 05/03/24 05/03/24 History acetaminophen 325 mg tablet 650 mg PO Q4H PRN Pain 05/03/24 05/03/24 Unknown History levothyroxine 50 mcg tablet 50 mcg PO DAILY 05/03/24 05/03/24 05/02/24 History magnesium hydroxide 400 mg/5 mL 30 ml PO DAILY 05/03/24 05/03/24 Unknown History oral suspension (Milk of Magnesia) metoprolol tartrate 25 mg tablet 12.5 mg PO DAILY 05/03/24 05/03/24 05/03/24 History risperidone 1 mg tablet 1.5 mg PO BID 05/03/24 05/03/24 05/03/24 History vitamin B complex-zinc 3.6 30 ml PO TID 05/03/24 05/03/24 Unknown History mg-manganese 0.75 mg/15 mL oral liquid (Eldertonic) lamotrigine 25 mg tablet (Lamictal) 50 mg (2 x 25 mg) PO BID 14 days 05/04/24 Unknown Rx #56 tabs Allergies Allergy/AdvReac Type Severity Reaction Status Date / Time No Known Allergies Allergy Verified 01/13/24 10:55 Current Medications Generic Name Dose Route Start Last Admin Trade Name Freq PRN Reason Stop Dose Admin Baclofen 20 mg 05/03/24 18:30 05/04/24 08:51 Baclofen 10 Mg Tablet PO 20 mg BID BUD Administration Diltiazem HCl 30 mg 05/03/24 18:30 05/04/24 01:57 Diltiazem 30 Mg Tablet PO 30 mg Q8H BUD Administration Enoxaparin Sodium 40 mg 05/03/24 18:30 05/03/24 20:29 Enoxaparin 40 Mg/0.4 Ml Syringe SUBCUT 40 mg Q24H BUD Administration Famotidine 20 mg 05/03/24 18:30 05/04/24 06:16 Famotidine 20 Mg/2 Ml Inj IVP 20 mg Q12H BUD Administration Sodium Chloride 1,000 mls @ 40 mls/hr 05/03/24 18:15 05/03/24 20:27 Sodium Chloride 0.9% IV 40 mls/hr .Q24H BUD Administration Levetiracetam 1,000 mg 05/03/24 18:30 05/04/24 08:51 Levetiracetam 500 Mg Tablet PO 1,000 mg BID BUD Administration Levothyroxine Sodium 50 mcg 05/04/24 09:00 05/04/24 08:51 Levothyroxine 50 Mcg Tablet PO 50 mcg DAILY BUD Administration Lorazepam 2 mg 05/03/24 18:09 05/03/24 18:21 Lorazepam 2 Mg/Ml Inj 1 Ml IVP 2 mg Q4H PRN Administration ANXIETY Magnesium Hydroxide 30 ml 05/04/24 09:00 05/04/24 08:51 Magnesium Hydroxide 30 Ml Udc PO 30 ml DAILY BUD Administration Metoprolol Tartrate 12.5 mg 05/04/24 09:00 05/04/24 08:50 Metoprolol Tartrate 25 Mg Tablet PO 12.5 mg DAILY BUD Administration Sertraline HCl 100 mg 05/04/24 06:00 05/04/24 06:16 Sertraline 100 Mg Tablet PEG-TUBE 100 mg QAM BUD Administration PFSH Acute PFSH: Medical History Cardiomyopathy due metabolic or nutritional disease Autism MDD (major depressive disorder) Tinea cruris Rash Self neglect Declining functional status Abnormal urinalysis Volvulus of intestine Partial small bowel obstruction Shock Acute hypokalemia Acute hypotension Altered mental status Intractable epilepsy Bicytopenia Generalized weakness Anemia Breakthrough seizure Hallux valgus (acquired) Chest pain Vitamin B12 deficiency Allergic rhinitis Vitamin D deficiency Urinary incontinence Hypothyroid Lt inguinal pain Intellectual disability Nicotine dependence, chewing tobacco, uncomplicated Muscle cramps Bilateral foot pain Panic disorder Hyperglycemia Chronic GERD Difficulty swallowing Anxiety Hearing loss in left ear Fever Encounter for screening for COVID-19 Mid back pain on left side Hemoptysis Constipation, chronic Benign tumor of pituitary gland Asthma Seasonal allergies Seizures Acute cystitis Gross hematuria Asthma Surgical History History of tonsillectomy and adenoidectomy Hx of hernia repair Family History Father Heart disease Social History Smoking and tobacco/nicotine status: never used tobacco/nicotine Quit status (tobacco/nicotine): has quit using Second hand smoke exposure: No Alcohol intake: never Substance/Drug Use: never Caregiver/support person: Yes Lives independently: No Housing: Alf Marital status: Single service: No Current occupational status: disabled Current gender identity: Male Vitals/I&O/Wt Last Vital Signs Temp 99.2 F 05/04/24 07:17 Pulse 101 H 05/04/24 08:02 Resp 16 05/04/24 08:02 BP 105/51 05/04/24 07:17 Pulse Ox 92 05/04/24 08:02 O2 Del Method Nasal Cannula 05/04/24 08:02 O2 Flow Rate 4 05/04/24 08:02 05/03/24 05/04/24 05/04/24 22:59 06:59 14:59 Intake Total 310 / 310 Balance 310 / 310 Weight last 48 hrs Weight 154 lb Weight 154 lb Weight 154 lb Physical Exam Narrative: He was alert laying in the bed. He would not speak. He would not follow commands. He would make eye contact. He fixes and follows me with his eyes. He is mute. Motor exam reveals that he pulls away from me in all 4 extremities. Deep tendon reflexes 2+ throughout. Plantar response flexor. Coordination: No specific cerebellar signs. Cardiac: S1 and S2 normal without murmur or gallop. Chest clear to auscultation. Abdomen deferred. Extremities: No rash. 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 Will get a send him back home after a loading dose of Keppra but he had another seizure in the emergency department and was postictal. I think the best drug to add for him would be lamotrigine and will start with 50 mg twice daily. That drug might be somewhat positive for him. As I am dictating this I discovered an old visit from 2010 as I thought his name was familiar. 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 I saw him in the ER in 2010 and at that time his EEG showed generalized spikes. He also had a generalized tonic-clonic seizure with severe opisthotonus and incontinence. He was only 10 at that time and he was going to school. He was violent, cruel to the family cat and was complaining of headaches. I had seen him prior to that for something, but the consult does not mention what it was. He did not have a speech disorder at that time but was reticent. I last saw him in December 2013 and I was trying to get him off of Depakote because he had behavioral problems with that drug. I put him on Vimpat hoping it would help with his attitude and it seemed to do that. When I attempted to wean Depakote he had another generalized tonic-clonic seizure. His mother said she thought his behavior was worse on Depakote. His mother became a problem and I did not see him further for that reason. Qualifiers: Epilepsy type: partial idiopathic, localized onset Status epilepticus: without status epilepticus Qualified Code(s): G40.019 - Localization-related (focal) (partial) idiopathic epilepsy and epileptic syndromes with seizures of localized onset, intractable, without status epilepticus (2) Generalized seizure: (3) Major depressive disorder, recurrent, moderate: (4) Cardiomyopathy due metabolic or nutritional disease: (5) Developmental disorder of speech and language, unspecified: Coding Level of Care Code Acute Code for [facility] Fwd Diagnoses Partial idiopathic epilepsy with seizures of localized onset, intractable, without status epilepticus G40.019 Epilepsy type: partial idiopathic, localized onset Status epilepticus: without status epilepticus Generalized seizure R56.9 Major depressive disorder, recurrent, moderate F33.1 Cardiomyopathy due metabolic or nutritional disease E63.9; E88.9; I43 Developmental disorder of speech and language, unspecified F80.9
[2024-05-04 10:24] LABS: Levetiracetam Immunoassy 46.1 mcg/mL (6.0-46.0)
--- NOTE | 2024-05-04 11:02 | P.DS_ITS ---
Discharge Providers Date of Admission: 05/03/24 18:42 Date of Discharge: May 04, 2024 Attending Provider at Admission: Wen Lopez MD Attending Provider at Discharge: Wen Lopez MD Primary Care Provider: SPENSER Quezada Diagnoses at Discharge Discharge Diagnosis (1) Generalized seizure: Status: Acute (2) Pressure ulcer of right buttock, stage 2: Status: Acute (3) Pressure ulcer of left buttock, stage 3: Status: Acute (4) Cardiomyopathy due metabolic or nutritional disease: Status: Acute (5) Sinus tachycardia: Status: Acute (6) Major depressive disorder, recurrent, moderate: Status: Acute Reason for Visit Reason for Visit: post seizure Brief History: Hussein Man is a 23 year old male with history of autism, cardiomyopathy due to metabolic or nutritional cause, MDD, declining functional status, seizure disorder, hypothyroidism, panic disorder, chronic GERD, benign pituitary tumor, was brought in by EMS from shelter for seizure episode. He had a CT head which showed diffuse cerebral edema, neurology consulted in ED and recommended no further management. But then he had a second episode of seizure in the ED and hence being admitted for further evaluation. He takes Keppra 1 g twice daily. During my assessment, he was postictal, was able to open eyes occasionally and answer questions with few words. Denied any complaint of pain. As per the ER bedside nurse, he was found to have posturing of his body, no tonic-clonic seizure activity noted, drooling and unresponsive during seizure-like episode. He received IV valproic acid 1 g, Ativan 2 mg and IV Keppra 1 g in ED. family not available at bedside to obtain further information, as per shelter records he is bed bound. He was also found to be tachycardic in ER at 110 to 115 bpm. Most recently visited Dr. Mariee of in cardiology outpatient department, has known history of sinus tachycardia and cardiomyopathy. Hospital Course Hospital Course Assessment and plan (1) Generalized seizure: (2) Pressure ulcer of right buttock, stage 2: (3) Pressure ulcer of left buttock, stage 3: (4) Cardiomyopathy due metabolic or nutritional disease: (5) Sinus tachycardia: (6) Major depressive disorder, recurrent, moderate: Plan Hussein Man is a 23 year old male with history of autism, cardiomyopathy due to metabolic or nutritional cause, MDD, declining functional status, seizure disorder, hypothyroidism, panic disorder, chronic GERD, benign pituitary tumor, was brought in by EMS from shelter for seizure episode. #Intractable seizure-neurology consulted in ED He received IV valproic acid 1 g, IV Keppra 1 g and IV Ativan 2 mg in ER for seizure episode Currently postictal. Will follow-up neurology for further recommendation Continue [employer]IST[employer] p.o. Keppra 1 g twice daily and baclofen N.p.o. for now CXR showed cardiomegaly. CTH IMPRESSION: 1. Diffuse, new effacement of the sulci and extra-axial spaces as compared to 04/29/2023. There is no midline shift or inferior displacement of the cerebellar tonsils. Ventricles are more slitlike than on the prior examinations. Findings are suspicious for cerebral edema. No obvious infarct. 2. No intracranial hemorrhage. #Tachycardia and cardiomyopathy-continue [employer]IST[employer] diltiazem, metoprolol #Hypothyroidism-continue [employer]IST[employer] levothyroxine #MDD-continue [employer]IST[employer] sertraline DVT prophylaxis with subcutaneous Lovenox GI prophylaxis with IV Pepcid 20 mg twice daily 05/04/24 He is doing better, had no seizure episodes overnight. hemodynamically stable. Will d/c on po lamictal 50mg bid, follow up with his regular neurologist in 1 week Physical Exam Narrative: He is more awake, alert and answering questions. Chest clear to auscultation bilaterally Cardiovascular normal heart sounds Abdomen soft nontender nondistended normal bowel sounds Extremities no edema noted bilaterally Discharge Data Studies Completed and Pending Completed Studies During Hospitalization Category Date Time Status CT head wo con* [id number] Stat Cat Scan 05/03/24 10:54 Completed XR chest 1V portable [id number] Stat Exams 05/03/24 10:55 Completed Pending at discharge Category Date Time Status Urine Culture Stat Lab 05/03/24 17:07 Received Radiology Impressions Head CT 05/03/24 10:54 IMPRESSION: 1. Diffuse, new effacement of the sulci and extra-axial spaces as compared to 04/29/2023. There is no midline shift or inferior displacement of the cerebellar tonsils. Ventricles are more slitlike than on the prior examinations. Findings are suspicious for cerebral edema. No obvious infarct. 2. No intracranial hemorrhage. Notified Jasmeet Fuentes DO at 05/03/2024 11:40 AM. Chest X-Ray 05/03/24 10:55 Impression: Cardiomegaly Laboratory Results WBC 7.18 10^3/uL (3.29-11.43) 05/04/24 03: RBC 4.54 10^6/uL (3.85-5.65) 05/04/24 03:27 Hgb 12.00 g/dL (11.27-16.99) 05/04/24 03: Hct 38.7 % (37-53) 05/04/24 03: MCV 85.2 fl (82-101) 05/04/24 03:27 MCH 26.4 pg (27-33) L 05/04/24 03: MCHC 31.0 g/dL (30-55) 05/04/24 03: RDW 13.8 % (12.1-15.1) 05/04/24 03:27 Plt Count 310 10^3/cmm (157-399) 05/04/24 03: MPV 9.5 fL (7.4-10.4) 05/04/24 03: Neut % (Auto) 77.4 % 05/04/24 03: Lymph % (Auto) 15.7 % 05/04/24 03: [place] % (Auto) 5.6 % 05/04/24 03: Eos % (Auto) 0.6 % 05/04/24 03: Baso % (Auto) 0.4 % 05/04/24 03:27 Neut # (Auto) 5.56 10^3/uL (1.8-7.7) 05/04/24 03: Lymph # (Auto) 1.1 10^3/uL (0.8-4.8) 05/04/24 03:27 [place] # (Auto) 0.4 10^3/uL (0.2-0.9) 05/04/24 03: Eos # (Auto) 0.0 10^3/uL (0.0-0.8) 05/04/24 03:27 Baso # (Auto) 0.0 10^3/uL (0.0-0.1) 05/04/24 03: Nucleated RBC % (auto) 0 % 05/04/24 03: Nucleated RBCs # 0.0 /100WBC 05/04/24 03:27 Sodium 139 mmol/L (136-145) 05/04/24 03:27 Potassium 3.9 mmol/L (3.5-5.1) 05/04/24 03:27 Chloride 101 mmol/L (98-107) 05/04/24 03:27 Carbon Dioxide 26 mmol/L (22-29) 05/04/24 03:27 Anion Gap 15.9 (5-19) 05/04/24 03:27 BUN 8 mg/dL (6-20) 05/04/24 03:27 Creatinine 0.3 mg/dL (0.7-1.2) L 05/04/24 03:27 GFR Calculation 365.3 mL/min (90-130) H 05/04/24 03:27 Glucose 74 mg/dL (65-115) 05/04/24 03:27 Calculated Osmolality 285 mOsm/kg (285-295) 05/04/24 03:27 Calcium 9.9 mg/dL (8.5-10.5) 05/04/24 03:27 Magnesium 1.8 mg/dL (1.7-2.3) 05/04/24 03:27 Total Bilirubin 0.4 mg/dL (0.15-1.2) 05/04/24 03:27 AST 19 U/L (0-40) 05/04/24 03:27 ALT 13 U/L (0-41) 05/04/24 03:27 Alkaline Phosphatase 106 U/L (40-130) 05/04/24 03:27 Total Protein 6.6 g/dL (6.6-8.7) 05/04/24 03:27 Albumin 3.9 g/dL (3.5-5.2) 05/04/24 03:27 Globulin 2.7 g/dL (1.3-4.6) 05/04/24 03:27 TSH 0.02 uIU/mL (0.27-4.20) L 05/04/24 03:27 Urine Color Yellow (Yellow) 05/03/24 17:07 Urine Appearance Clear (CLEAR) 05/03/24 17:07 Urine pH 5.5 (5-7) 05/03/24 17:07 Ur Specific [place] 1.024 (1.005-1.030) 05/03/24 17:07 Urine Protein Negative (Negative) 05/03/24 17:07 Urine Glucose (UA) Negative (Normal) 05/03/24 17:07 Urine Ketones Negative (Negative) 05/03/24 17:07 Urine Blood 2+ (Negative) A 05/03/24 17:07 Urine Nitrate Negative (Negative) 05/03/24 17:07 Urine Bilirubin Negative (Negative) 05/03/24 17:07 Urine Urobilinogen 1.0 mg/dL (Negative) 05/03/24 17:07 Ur Leukocyte Esterase Negative (Negative) 05/03/24 17:07 Urine RBC 51-100 /hpf (0-2) H 05/03/24 17:07 Urine WBC 0-5 /hpf (0-5) 05/03/24 17:07 Ur Squamous Epith Cells 0-5 /hpf (0-5) 05/03/24 17:07 Amorphous Sediment Not Reportable 05/03/24 17:07 Urine Bacteria None seen /hpf (NONE) 05/03/24 17:07 Hyaline Casts 0.40 /lpf 05/03/24 17:07 Gastric Occult Blood Negative (Negative) 05/03/24 11:20 Levetiracetam 46.1 mcg/mL (6.0-46.0) H 05/03/24 16:39 Vitals Last Vital Signs Temp 99.2 F 05/04/24 07:17 Pulse 101 H 05/04/24 08:02 Resp 16 05/04/24 08:02 BP 105/51 05/04/24 07:17 Pulse Ox 92 05/04/24 08:02 O2 Del Method Nasal Cannula 05/04/24 08:02 O2 Flow Rate 4 05/04/24 08:02 Discharge Plan Discharge Patient Disposition: Xfer SNF Condition: Stable Prescriptions: New lamotrigine [Lamictal] 25 mg tablet 50 mg PO BID 14 Days Qty: 56 0RF Continued baclofen 20 mg tablet 20 mg PO BID sertraline 100 mg Tablet 100 mg peg-tube QAM Qty: 30 0RF levetiracetam [Keppra] 1,000 mg tablet 1,000 mg PO BID Qty: 60 0RF diltiazem HCl [Cardizem] 30 mg tablet 30 mg PO Q8H Qty: 90 0RF Rx Instructions: hold if bp systolic < 90 levothyroxine 50 mcg Tablet 50 mcg PO DAILY metoprolol tartrate 25 mg tablet 12.5 mg PO DAILY Rx Instructions: take 1/2 tablet by mouth daily acetaminophen 325 mg Tablet 650 mg PO Q4H PRN (Reason: Pain) magnesium hydroxide [Milk of Magnesia] 400 mg/5 mL Suspension 30 ml PO DAILY risperidone 1 mg Tablet 1.5 mg PO BID Rx Instructions: take 1 and 1/2 tablet by mouth twice daily for major depressive disorder Eldertonic 3.6 mg-0.75 mg /15 mL Liquid 30 ml PO TID Discharge Orders: Discharge Order (Routine); Ordered 05/04/24 Ordered By: Wen Lopez Referrals: Shima Larson FNP [Primary Care Provider] - Discharge Diet: Usual diet Discharge Activity: Increase activity as tolerated Patient Instructions: Opioid Safety, Pain Management Activity Restrictions/Additional Instructions: Thank you for choosing [facility] for your healthcare needs today. It is very important that you follow up as instructed or that you return to the Emergency Department should you have concerns or if your condition changes or worsens in any way. You are seen after a seizure. Your exam was unremarkable. CT of the head showed some slight changes we had the neurologist see you. 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 Discharge Attestations Time Spent in Discharge Care*: less than 30 min Quality Metrics Clinical Quality Measures [ No reported AMI, CVA or VTE this stay] Coding Level of Care Code Acute Code for [facility] Fwd Diagnoses Generalized seizure R56.9 Pressure ulcer of right buttock, stage 2 L89.312 Pressure ulcer of left buttock, stage 3 L89.323 Cardiomyopathy due metabolic or nutritional disease E63.9; E88.9; I43 Sinus tachycardia R00.0 Major depressive disorder, recurrent, moderate F33.1 Time Spent (min) 20
--- NOTE | 2024-05-04 13:50 | PC.NURSE ---
Report is called to DELBERT Reis at [facility] at 1350.
--- NOTE | 2024-05-04 16:31 | PC.NURSE ---
Miguel Martin transported the patient to [facility], left the unit at 1630.
== END 2024-05-04 16:31 | disposition skilled nursing facility (03) ==
LOC: ER 16:14 → CSU 05-04 07:09
PROVIDERS: Admitting Provider Internal Medicine; Emergency Provider Family Medicine; PCP Nurse Practitioner Family; Visit Provider Internal Medicine
DX: R56.9 Unspecified convulsions (principal); L89.312 Pressure ulcer of right buttock, stage 2; L89.323 Pressure ulcer of left buttock, stage 3; E63.9 Nutritional deficiency, unspecified; E88.9 Metabolic disorder, unspecified; I43 Cardiomyopathy in diseases classified elsewhere; R00.0 Tachycardia, unspecified; F33.1 Major depressive disorder, recurrent, moderate; F84.0 Autistic disorder; E03.9 Hypothyroidism, unspecified
CPT/HCPCS: 36415; 70450; 71045; 80053; 80177; 81001; 82271; 83735; 84443; 85025; 87086; 93005; 94664; 96365; 96372; 96375; 96376; 99285; A9270; G0378; J1650; J1953; J2060; J3490; J7030

== ENCOUNTER 2024-09-08 05:22 | Inpatient (IN) | payer MEDICAID, SELFPAY ==
[2024-09-08] VITALS (25 sets, daily range): BP systolic 91–118; BP diastolic 56–71; PULSE 76–117; RESP 12–22; TEMP 36.9; O2SAT 89–100; BMI 23.0
--- NOTE | 2024-09-08 05:26 | XRR_ITS ---
PROCEDURE INFORMATION: Exam: XR Chest Exam date and time: 09/08/2024 4:32 AM Age: 24 years old Clinical indication: Other: Seizure TECHNIQUE: Imaging protocol: Radiologic exam of the chest. Views: 1 view. COMPARISON: CR XR chest 1V portable [id number] 05/03/2024 11:04 AM FINDINGS: Lungs: Mild diffuse interstitial prominence has developed. Slight vascular prominence. Mild cardiac decompensation might be present although that would be unexpected in a patient of this age. Pleural spaces: Unremarkable. No pleural effusion. No pneumothorax. Heart/Mediastinum: Magnification of the heart and mediastinal structures by the AP positioning. Bones/joints: Unremarkable. XR/XR chest 1V portable [id number] IMPRESSION: Mild nonspecific interstitial prominence has developed.
--- NOTE | 2024-09-08 05:27 | W.ED.SEIZURE ---
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 EMS reports multiple episodes lasting up to 10 minutes. They also report he was a little bit hypoxemic in the upper 80s and so they placed him on some oxygen. Seizure History: Yes Related Data Home Medications ?Medication ?Instructions ?Recorded ?Confirmed baclofen 20 mg tablet 20 mg PO BID 01/13/24 09/08/24 acetaminophen 325 mg tablet 650 mg feeding tube Q4H PRN Fever 05/03/24 09/08/24 Or Pain levothyroxine 50 mcg tablet 50 mcg feeding tube DAILY 05/03/24 09/08/24 magnesium hydroxide 400 mg/5 mL 30 ml feeding tube DAILY PRN 05/03/24 09/08/24 oral suspension (Milk of Magnesia) Constipation metoprolol tartrate 25 mg tablet 12.5 mg PO DAILY 05/03/24 09/08/24 vitamin B complex-zinc 3.6 30 ml PO TID 05/03/24 09/08/24 mg-manganese 0.75 mg/15 mL oral liquid (Eldertonic) fluticasone propionate 50 2 inh inhalation BEDTIME 09/08/24 09/08/24 mcg/actuation blister powder for inhalation guaifenesin 100 mg/5 mL oral 300 mg PO Q4H 09/08/24 09/08/24 liquid (Saida-Tussin) lamotrigine 25 mg tablet 50 mg PO BID 09/08/24 09/08/24 loratadine 10 mg tablet (Claritin) 10 mg feeding tube DAILY PRN 09/08/24 09/08/24 Allergic Symptoms risperidone 3 mg tablet (Risperdal) 1.5 mg PO TID 09/08/24 09/08/24 Previous Rx's ?Medication ?Instructions ?Recorded diltiazem HCl 30 mg tablet 30 mg PO Q8H #90 tabs 05/12/23 (Cardizem) levetiracetam 1,000 mg tablet 1,000 mg PO BID #60 tabs 05/12/23 (Keppra) sertraline 100 mg tablet 100 mg peg-tube QAM #30 tabs 05/12/23 Allergies Allergy/AdvReac Type Severity Reaction Status Date / Time No Known Allergies Allergy Verified 09/08/24 05:29 Review of Systems General: Reports: ROS unobtainable due to medical condition PFSH ED PFSH: Medical History (Updated 09/08/24 @ 12:56 by Mateo Mackenzie MD) Breakthrough seizure Pressure ulcer of right buttock, stage 2 Pressure ulcer of left buttock, stage 3 Sinus tachycardia Major depressive disorder, recurrent, moderate Cardiomyopathy due metabolic or nutritional disease Autism MDD (major depressive disorder) Tinea cruris Rash Self neglect Declining functional status Abnormal urinalysis Volvulus of intestine Partial small bowel obstruction Shock Acute hypokalemia Acute hypotension Altered mental status Intractable epilepsy Bicytopenia Generalized weakness Anemia Hallux valgus (acquired) Chest pain Vitamin B12 deficiency Allergic rhinitis Vitamin D deficiency Urinary incontinence Hypothyroid Lt inguinal pain Intellectual disability Nicotine dependence, chewing tobacco, uncomplicated Muscle cramps Bilateral foot pain Panic disorder Hyperglycemia Chronic GERD Difficulty swallowing Anxiety Hearing loss in left ear Fever Encounter for screening for COVID-19 Mid back pain on left side Hemoptysis Constipation, chronic Benign tumor of pituitary gland Asthma Seasonal allergies Seizures Acute cystitis Gross hematuria Asthma Surgical History History of tonsillectomy and adenoidectomy Hx of hernia repair Family History Father Heart disease Social History Smoking and tobacco/nicotine status: never used tobacco/nicotine Quit status (tobacco/nicotine): has quit using Second hand smoke exposure: No Alcohol intake: never Substance/Drug Use: never Caregiver/support person: Yes Lives independently: No Housing: Prison Marital status: Single service: No Current occupational status: disabled Current gender identity: Male Physical Exam Narrative: EXAM NARRATIVE: General: responds minimally to painful stimuli. Eyes are open. He does look towards movements. He does move his hand when I ask him to. But does appear quite postictal. Skin: Warm, dry Head: Normocephalic, atraumatic. Neck: Supple, trachea midline. Eye: Extraocular movements are intact. Ears, nose, mouth and throat: Dry oral mucosa. Cardiovascular: Regular rate and rhythm, Normal peripheral perfusion. Respiratory: Lungs are clear to auscultation, respirations are non-labored, breath sounds are equal, Symmetrical chest wall expansion. Gastrointestinal: Soft, Non distended, Normal bowel sounds. Musculoskeletal: no deformity. Neurological: Not Alert and oriented Psychiatric: unable to assess. Course Vital Signs: Vital signs: Vital Signs Temperature 98.5 F 09/08/24 05:26 Pulse Rate 76 09/09/24 05:36 Respiratory Rate 14 09/09/24 04:00 Blood Pressure 99/61 09/09/24 04:00 Pulse Oximetry 96 09/09/24 04:00 Oxygen Delivery Me thod Room Air 09/08/24 20:55 Oxygen Flow Rate 3 09/08/24 12:29 MDM - Seizure Lab Data 09/09/24 03:53 09/09/24 03:53 Labs: Radiology Impressions Chest X-Ray 09/08/24 05:26 IMPRESSION: Mild nonspecific interstitial prominence has developed. Chest CT 09/08/24 07:13 IMPRESSION: 1. Diffuse bilateral reticular nodular opacifications most likely due to pneumonia. 2. Additional superimposed more discrete pulmonary nodules scattered throughout both lungs. The largest 8 mm at the LEFT lung base. These nodules were not present in 2022. Differential includes infection, septic emboli or metastatic disease. 3. Mediastinal and hilar lymphadenopathy. Mildly enlarged LEFT axillary lymph node. Neoplastic versus infectious /reactive. 4. Partially visualized LEFT neck mass measuring 1.8 x 2.4 cm just deep to the sternocleidomastoid muscle. This may be a lymph node. Not present on the prior study from 02/19/2022. Neck CT 09/08/24 10:22 IMPRESSION: 1. No neck mass or cervical adenopathy. The prominent soft tissue along the LEFT neck seen on the chest CT was probably due to rotation of the patient. 2. Normal larynx. 3. LEFT maxillary sinusitis. Abdomen/Pelvis CT 09/08/24 10:57 IMPRESSION: 1. Normal position of the PEG tube. No adjacent inflammation or abscess identified along the tract. 2. Reidentified is a reticular nodular pattern and superimposed pulmonary nodules at the lung bases. Differential includes infection, septic emboli and metastatic disease. 3. Small indeterminate distal paraesophageal lymph nodes and bilateral inguinal lymph nodes. May be reactive as the normal shape of the lymph node is maintained. 4. No ascites. 5. Circumferential rectal wall thickening. New since 2022. Recommend evaluation for proctitis. 6. Chronic but progression of bilateral hip osteonecrosis. Laboratory Results WBC 12.70 10^3/uL (3.29-11.43) H 09/08/24 05:37 RBC 5.11 10^6/uL (3.85-5.65) 09/08/24 05:37 Hgb 12.90 g/dL (11.27-16.99) 09/08/24 05:37 Hct 43.0 % (37-53) 09/08/24 05:37 MCV 84.1 fl (82-101) 09/08/24 05:37 MCH 25.2 pg (27-33) L 09/08/24 05:37 MCHC 30.0 g/dL (30-55) 09/08/24 05:37 RDW 14.4 % (12.1-15.1) 09/08/24 05:37 Plt Count 332 10^3/cmm (157-399) 09/08/24 05:37 MPV 9.1 fL (7.4-10.4) 09/08/24 05:37 Neut % (Auto) 88.9 % 09/08/24 05:37 Lymph % (Auto) 4.6 % 09/08/24 05:37 [place] % (Auto) 5.9 % 09/08/24 05:37 Eos % (Auto) 0.0 % 09/08/24 05:37 Baso % (Auto) 0.2 % 09/08/24 05:37 Neut # (Auto) 11.28 10^3/uL (1.8-7.7) H 09/08/24 05:37 Lymph # (Auto) 0.6 10^3/uL (0.8-4.8) L 09/08/24 05:37 [place] # (Auto) 0.8 10^3/uL (0.2-0.9) 09/08/24 05:37 Eos # (Auto) 0.0 10^3/uL (0.0-0.8) 09/08/24 05:37 Baso # (Auto) 0.0 10^3/uL (0.0-0.1) 09/08/24 05:37 Nucleated RBC % (auto) 0 % 09/08/24 05:37 Nucleated RBCs # 0.0 /100WBC 09/08/24 05:37 ESR 25 mm/hr (0-10) H 09/08/24 08:31 Specimen Type Arterial 09/08/24 05:37 Sample Site Brachial, right 09/08/24 05:37 ABG pH 7.40 (7.35-7.45) 09/08/24 05:37 ABG pCO2 40.6 mmHg (35-45) 09/08/24 05:37 ABG pO2 84.4 mmHg (80.0-100.0) 09/08/24 05:37 ABG HCO3 25.0 mmol/L (22-26) 09/08/24 05:37 ABG O2 Saturation 97.3 09/08/24 05:37 ABG Base Excess 0.1 mmol/L (-2.0-2.0) 09/08/24 05:37 Filiberto Test N/a 09/08/24 05:37 A-a O2 Gradient 1.5 mmHg (5-10) L 09/08/24 05:37 Hematocrit 38.8 % (42-52) L 09/08/24 05:37 Hgb O2 Saturation 95.4 % (95-100) 09/08/24 05:37 Carboxyhemoglobin 1.4 %THgb (0.4-20.1) 09/08/24 05:37 Methemoglobin 0.6 % (0.4-1.5) 09/08/24 05:37 Total Hemoglobin 12.7 g/dL (14-18) L 09/08/24 05:37 Sodium 140.0 mmol/L (131-143) 09/08/24 05:37 Potassium 3.2 mmol/L (3.5-5.0) L 09/08/24 05:37 Glucose 104.0 mg/dL (70-115) 09/08/24 05:37 Ionized Calcium 1.2 mmol/L (1.1-1.4) 09/08/24 05:37 O2 Delivery Device Nc 09/08/24 05:37 O2 Liters/Min 1.0 % 09/08/24 05:37 Evaluation Engineer ID [email or web address] 09/08/24 05:37 Sodium 141 mmol/L (136-145) 09/08/24 05:37 Potassium 4.4 mmol/L (3.5-5.1) 09/08/24 05:37 Chloride 101 mmol/L (98-107) 09/08/24 05:37 Carbon Dioxide 24 mmol/L (22-29) 09/08/24 05:37 Anion Gap 20.4 (5-19) H 09/08/24 05:37 BUN 10 mg/dL (6-20) 09/08/24 05:37 Creatinine 0.5 mg/dL (0.7-1.2) L 09/08/24 05:37 GFR Calculation 201.0 mL/min (90-130) H 09/08/24 05:37 Glucose 102 mg/dL (65-115) 09/08/24 05:37 Calculated Osmolality 291 mOsm/kg (285-295) 09/08/24 05:37 Lactic Acid 3.8 mmol/L (0.5-2.2) H 09/08/24 05:37 Lactic Acid (Sepsis) 0.8 mmol/L (0.5-2.2) 09/08/24 08:34 Calcium 9.8 mg/dL (8.5-10.5) 09/08/24 05:37 Total Bilirubin 0.5 mg/dL (0.15-1.2) 09/08/24 05:37 AST 20 U/L (0-40) 09/08/24 05:37 ALT 11 U/L (0-41) 09/08/24 05:37 Alkaline Phosphatase 110 U/L (40-130) 09/08/24 05:37 Creatine Kinase 1019 U/L (39-308) H* 09/08/24 13:04 Troponin T Baseline 78 ng/L (0-15) H 09/08/24 13:04 C-Reactive Protein 130.5 mg/L (0.0-4.9) H 09/08/24 08:31 NT-Pro-B Natriuret Pep 687 pg/mL (0-125) H 09/08/24 05:37 Total Protein 7.9 g/dL (6.6-8.7) 09/08/24 05:37 Albumin 4.1 g/dL (3.5-5.2) 09/08/24 05:37 Globulin 3.8 g/dL (1.3-4.6) 09/08/24 05:37 Procalcitonin 0.07 ng/mL (0-0.5) 09/08/24 08:31 TSH 7.75 uIU/mL (0.27-4.20) H 09/08/24 13:04 Free T4 1.13 ng/dL (0.82-1.77) 09/08/24 13:04 Free T3 1.6 PG/ML (2.0-4.4) L 09/08/24 13:04 Urine Color Dark yellow (Yellow) A 09/08/24 05:45 Urine Appearance Slightly cloudy (CLEAR) 09/08/24 05:45 Urine pH 5 (5-7) 09/08/24 05:45 Ur Specific [place] 1.020 (1.005-1.030) 09/08/24 05:45 Urine Protein 1+ (Negative) A 09/08/24 05:45 Urine Glucose (UA) Norm (Normal) 09/08/24 05:45 Urine Ketones 1+ (Negative) H 09/08/24 05:45 Urine Blood 3+ (Negative) A 09/08/24 05:45 Urine Nitrate Negative (Negative) 09/08/24 05:45 Urine Bilirubin Neg (Negative) 09/08/24 05:45 Urine Urobilinogen Neg mg/dL (Negative) 09/08/24 05:45 Ur Leukocyte Esterase Negative (Negative) 09/08/24 05:45 Urine RBC >100 /hpf (0-2) H 09/08/24 05:45 Urine WBC 0-5 /hpf (0-5) 09/08/24 05:45 Ur Squamous Epith Cells 0-5 /hpf (0-5) 09/08/24 05:45 Amorphous Sediment 2+ /hpf 09/08/24 05:45 Urine Bacteria Trace /hpf (NONE) 09/08/24 05:45 Hyaline Casts 5.36 /lpf 09/08/24 05:45 Urine Mucus 3+ /hpf 09/08/24 05:45 Influenza A (PCR) Negative (Negative) 09/08/24 05:37 Influenza Type B (PCR) Negative (Negative) 09/08/24 05:37 RSV (PCR) Negative (Negative) 09/08/24 05:37 SARS-CoV-2 (PCR) Negative (Negative) 09/08/24 05:37 ED provider radiology interpretation(s): Patient care transitioned to Dr. Fuentes shift change Discharge Plan Discharge Patient Disposition: Admitted As Inpatient Admit Provider: Mateo Mackenzie Clinical Impression: Epileptic seizure, Acute hypoxic respiratory failure Pneumonia Qualifiers: Pneumonia type: due to unspecified organism Laterality: bilateral Lung location: unspecified part of lung Qualified Code(s): J18.9 - Pneumonia, unspecified organism Condition: Stable Coding Level of Care Code ED Block Mason for Chg Fwd Documented by User: Chandra Larson DO 09/08/24 13:53 HPI - Seizure General: Chief Complaint: Seizure Stated Complaint: seizures Time Seen by Provider: 09/08/24 05:23 Related Data Home Medications ?Medication ?Instructions ?Recorded ?Confirmed baclofen 20 mg tablet 20 mg PO BID 01/13/24 09/08/24 acetaminophen 325 mg tablet 650 mg feeding tube Q4H PRN Fever 05/03/24 09/08/24 Or Pain levothyroxine 50 mcg tablet 50 mcg feeding tube DAILY 05/03/24 09/08/24 magnesium hydroxide 400 mg/5 mL 30 ml feeding tube DAILY PRN 05/03/24 09/08/24 oral suspension (Milk of Magnesia) Constipation metoprolol tartrate 25 mg tablet 12.5 mg PO DAILY 05/03/24 09/08/24 vitamin B complex-zinc 3.6 30 ml PO TID 05/03/24 09/08/24 mg-manganese 0.75 mg/15 mL oral liquid (Eldertonic) fluticasone propionate 50 2 inh inhalation BEDTIME 09/08/24 09/08/24 mcg/actuation blister powder for inhalation guaifenesin 100 mg/5 mL oral 300 mg PO Q4H 09/08/24 09/08/24 liquid (Saida-Tussin) lamotrigine 25 mg tablet 50 mg PO BID 09/08/24 09/08/24 loratadine 10 mg tablet (Claritin) 10 mg feeding tube DAILY PRN 09/08/24 09/08/24 Allergic Symptoms risperidone 3 mg tablet (Risperdal) 1.5 mg PO TID 09/08/24 09/08/24 Previous Rx's ?Medication ?Instructions ?Recorded diltiazem HCl 30 mg tablet 30 mg PO Q8H #90 tabs 05/12/23 (Cardizem) levetiracetam 1,000 mg tablet 1,000 mg PO BID #60 tabs 05/12/23 (Keppra) sertraline 100 mg tablet 100 mg peg-tube QAM #30 tabs 05/12/23 Allergies Allergy/AdvReac Type Severity Reaction Status Date / Time No Known Allergies Allergy Verified 09/08/24 05:29 [facility] ED PFSH: Medical History (Updated 09/08/24 @ 12:56 by Mateo Mackenzie MD) Breakthrough seizure Pressure ulcer of right buttock, stage 2 Pressure ulcer of left buttock, stage 3 Sinus tachycardia Major depressive disorder, recurrent, moderate Cardiomyopathy due metabolic or nutritional disease Autism MDD (major depressive disorder) Tinea cruris Rash Self neglect Declining functional status Abnormal urinalysis Volvulus of intestine Partial small bowel obstruction Shock Acute hypokalemia Acute hypotension Altered mental status Intractable epilepsy Bicytopenia Generalized weakness Anemia Hallux valgus (acquired) Chest pain Vitamin B12 deficiency Allergic rhinitis Vitamin D deficiency Urinary incontinence Hypothyroid Lt inguinal pain Intellectual disability Nicotine dependence, chewing tobacco, uncomplicated Muscle cramps Bilateral foot pain Panic disorder Hyperglycemia Chronic GERD Difficulty swallowing Anxiety Hearing loss in left ear Fever Encounter for screening for COVID-19 Mid back pain on left side Hemoptysis Constipation, chronic Benign tumor of pituitary gland Asthma Seasonal allergies Seizures Acute cystitis Gross hematuria Asthma Surgical History History of tonsillectomy and adenoidectomy Hx of hernia repair Family History Father Heart disease Social History Smoking and tobacco/nicotine status: never used tobacco/nicotine Quit status (tobacco/nicotine): has quit using Second hand smoke exposure: No Alcohol intake: never Substance/Drug Use: never Caregiver/support person: Yes Lives independently: No Housing: Prison Marital status: Single service: No Current occupational status: disabled Current gender identity: Male Course Vital Signs: Vital signs: Vital Signs Temperature 98.5 F 09/08/24 05:26 Pulse Rate 76 09/09/24 05:36 Respiratory Rate 14 09/09/24 04:00 Blood Pressure 99/61 09/09/24 04:00 Pulse Oximetry 96 09/09/24 04:00 Oxygen Delivery Me thod Room Air 09/08/24 20:55 Oxygen Flow Rate 3 09/08/24 12:29 MDM - Seizure Lab Data 09/09/24 03:53 09/09/24 03:53 Labs: Radiology Impressions Chest X-Ray 09/08/24 05:26 IMPRESSION: Mild nonspecific interstitial prominence has developed. Chest CT 09/08/24 07:13 IMPRESSION: 1. Diffuse bilateral reticular nodular opacifications most likely due to pneumonia. 2. Additional superimposed more discrete pulmonary nodules scattered throughout both lungs. The largest 8 mm at the LEFT lung base. These nodules were not present in 2022. Differential includes infection, septic emboli or metastatic disease. 3. Mediastinal and hilar lymphadenopathy. Mildly enlarged LEFT axillary lymph node. Neoplastic versus infectious /reactive. 4. Partially visualized LEFT neck mass measuring 1.8 x 2.4 cm just deep to the sternocleidomastoid muscle. This may be a lymph node. Not present on the prior study from 02/19/2022. Neck CT 09/08/24 10:22 IMPRESSION: 1. No neck mass or cervical adenopathy. The prominent soft tissue along the LEFT neck seen on the chest CT was probably due to rotation of the patient. 2. Normal larynx. 3. LEFT maxillary sinusitis. Abdomen/Pelvis CT 09/08/24 10:57 IMPRESSION: 1. Normal position of the PEG tube. No adjacent inflammation or abscess identified along the tract. 2. Reidentified is a reticular nodular pattern and superimposed pulmonary nodules at the lung bases. Differential includes infection, septic emboli and metastatic disease. 3. Small indeterminate distal paraesophageal lymph nodes and bilateral inguinal lymph nodes. May be reactive as the normal shape of the lymph node is maintained. 4. No ascites. 5. Circumferential rectal wall thickening. New since 2022. Recommend evaluation for proctitis. 6. Chronic but progression of bilateral hip osteonecrosis. Laboratory Results WBC 12.70 10^3/uL (3.29-11.43) H 09/08/24 05:37 RBC 5.11 10^6/uL (3.85-5.65) 09/08/24 05:37 Hgb 12.90 g/dL (11.27-16.99) 09/08/24 05:37 Hct 43.0 % (37-53) 09/08/24 05:37 MCV 84.1 fl (82-101) 09/08/24 05:37 MCH 25.2 pg (27-33) L 09/08/24 05:37 MCHC 30.0 g/dL (30-55) 09/08/24 05:37 RDW 14.4 % (12.1-15.1) 09/08/24 05:37 Plt Count 332 10^3/cmm (157-399) 09/08/24 05:37 MPV 9.1 fL (7.4-10.4) 09/08/24 05:37 Neut % (Auto) 88.9 % 09/08/24 05:37 Lymph % (Auto) 4.6 % 09/08/24 05:37 [place] % (Auto) 5.9 % 09/08/24 05:37 Eos % (Auto) 0.0 % 09/08/24 05:37 Baso % (Auto) 0.2 % 09/08/24 05:37 Neut # (Auto) 11.28 10^3/uL (1.8-7.7) H 09/08/24 05:37 Lymph # (Auto) 0.6 10^3/uL (0.8-4.8) L 09/08/24 05:37 [place] # (Auto) 0.8 10^3/uL (0.2-0.9) 09/08/24 05:37 Eos # (Auto) 0.0 10^3/uL (0.0-0.8) 09/08/24 05:37 Baso # (Auto) 0.0 10^3/uL (0.0-0.1) 09/08/24 05:37 Nucleated RBC % (auto) 0 % 09/08/24 05:37 Nucleated RBCs # 0.0 /100WBC 09/08/24 05:37 ESR 25 mm/hr (0-10) H 09/08/24 08:31 Specimen Type Arterial 09/08/24 05:37 Sample Site Brachial, right 09/08/24 05:37 ABG pH 7.40 (7.35-7.45) 09/08/24 05:37 ABG pCO2 40.6 mmHg (35-45) 09/08/24 05:37 ABG pO2 84.4 mmHg (80.0-100.0) 09/08/24 05:37 ABG HCO3 25.0 mmol/L (22-26) 09/08/24 05:37 ABG O2 Saturation 97.3 09/08/24 05:37 ABG Base Excess 0.1 mmol/L (-2.0-2.0) 09/08/24 05:37 Filiberto Test N/a 09/08/24 05:37 A-a O2 Gradient 1.5 mmHg (5-10) L 09/08/24 05:37 Hematocrit 38.8 % (42-52) L 09/08/24 05:37 Hgb O2 Saturation 95.4 % (95-100) 09/08/24 05:37 Carboxyhemoglobin 1.4 %THgb (0.4-20.1) 09/08/24 05:37 Methemoglobin 0.6 % (0.4-1.5) 09/08/24 05:37 Total Hemoglobin 12.7 g/dL (14-18) L 09/08/24 05:37 Sodium 140.0 mmol/L (131-143) 09/08/24 05:37 Potassium 3.2 mmol/L (3.5-5.0) L 09/08/24 05:37 Glucose 104.0 mg/dL (70-115) 09/08/24 05:37 Ionized Calcium 1.2 mmol/L (1.1-1.4) 09/08/24 05:37 O2 Delivery Device Nc 09/08/24 05:37 O2 Liters/Min 1.0 % 09/08/24 05:37 Evaluation Engineer ID [email or web address] 09/08/24 05:37 Sodium 141 mmol/L (136-145) 09/08/24 05:37 Potassium 4.4 mmol/L (3.5-5.1) 09/08/24 05:37 Chloride 101 mmol/L (98-107) 09/08/24 05:37 Carbon Dioxide 24 mmol/L (22-29) 09/08/24 05:37 Anion Gap 20.4 (5-19) H 09/08/24 05:37 BUN 10 mg/dL (6-20) 09/08/24 05:37 Creatinine 0.5 mg/dL (0.7-1.2) L 09/08/24 05:37 GFR Calculation 201.0 mL/min (90-130) H 09/08/24 05:37 Glucose 102 mg/dL (65-115) 09/08/24 05:37 Calculated Osmolality 291 mOsm/kg (285-295) 09/08/24 05:37 Lactic Acid 3.8 mmol/L (0.5-2.2) H 09/08/24 05:37 Lactic Acid (Sepsis) 0.8 mmol/L (0.5-2.2) 09/08/24 08:34 Calcium 9.8 mg/dL (8.5-10.5) 09/08/24 05:37 Total Bilirubin 0.5 mg/dL (0.15-1.2) 09/08/24 05:37 AST 20 U/L (0-40) 09/08/24 05:37 ALT 11 U/L (0-41) 09/08/24 05:37 Alkaline Phosphatase 110 U/L (40-130) 09/08/24 05:37 Creatine Kinase 1019 U/L (39-308) H* 09/08/24 13:04 Troponin T Baseline 78 ng/L (0-15) H 09/08/24 13:04 C-Reactive Protein 130.5 mg/L (0.0-4.9) H 09/08/24 08:31 NT-Pro-B Natriuret Pep 687 pg/mL (0-125) H 09/08/24 05:37 Total Protein 7.9 g/dL (6.6-8.7) 09/08/24 05:37 Albumin 4.1 g/dL (3.5-5.2) 09/08/24 05:37 Globulin 3.8 g/dL (1.3-4.6) 09/08/24 05:37 Procalcitonin 0.07 ng/mL (0-0.5) 09/08/24 08:31 TSH 7.75 uIU/mL (0.27-4.20) H 09/08/24 13:04 Free T4 1.13 ng/dL (0.82-1.77) 09/08/24 13:04 Free T3 1.6 PG/ML (2.0-4.4) L 09/08/24 13:04 Urine Color Dark yellow (Yellow) A 09/08/24 05:45 Urine Appearance Slightly cloudy (CLEAR) 09/08/24 05:45 Urine pH 5 (5-7) 09/08/24 05:45 Ur Specific [place] 1.020 (1.005-1.030) 09/08/24 05:45 Urine Protein 1+ (Negative) A 09/08/24 05:45 Urine Glucose (UA) Norm (Normal) 09/08/24 05:45 Urine Ketones 1+ (Negative) H 09/08/24 05:45 Urine Blood 3+ (Negative) A 09/08/24 05:45 Urine Nitrate Negative (Negative) 09/08/24 05:45 Urine Bilirubin Neg (Negative) 09/08/24 05:45 Urine Urobilinogen Neg mg/dL (Negative) 09/08/24 05:45 Ur Leukocyte Esterase Negative (Negative) 09/08/24 05:45 Urine RBC >100 /hpf (0-2) H 09/08/24 05:45 Urine WBC 0-5 /hpf (0-5) 09/08/24 05:45 Ur Squamous Epith Cells 0-5 /hpf (0-5) 09/08/24 05:45 Amorphous Sediment 2+ /hpf 09/08/24 05:45 Urine Bacteria Trace /hpf (NONE) 09/08/24 05:45 Hyaline Casts 5.36 /lpf 09/08/24 05:45 Urine Mucus 3+ /hpf 09/08/24 05:45 Influenza A (PCR) Negative (Negative) 09/08/24 05:37 Influenza Type B (PCR) Negative (Negative) 09/08/24 05:37 RSV (PCR) Negative (Negative) 09/08/24 05:37 SARS-CoV-2 (PCR) Negative (Negative) 09/08/24 05:37 All radiology interpretation(s) finalized by discharge ED provider radiology interpretation(s): Patient care transitioned to Dr. Larson shift change Patient care transitioned myself at shift change, appears patient may have presented with hypoxemia and a seizure. Patient was placed on 3 L of oxygen per nasal cannula keeping saturation upwards of 89+ percent. Patient has a white count of 12.7, lactic acid 3.8, patient was given a septic bolus as well as Zosyn. Chest x-ray showed mild nonspecific interstitial prominence, chest CT was obtained that showed diffuse bilateral opacities most likely pneumonia with some discrete pulmonary nodules and lymphadenopathy Discharge Plan Discharge Patient Disposition: Admitted As Inpatient Admit Provider: Mateo Mackenzie Clinical Impression: Epileptic seizure, Acute hypoxic respiratory failure Pneumonia Qualifiers: Pneumonia type: due to unspecified organism Laterality: bilateral Lung location: unspecified part of lung Qualified Code(s): J18.9 - Pneumonia, unspecified organism Condition: Stable Coding Level of Care Code ED Block Mason for Marcus Cobos
[2024-09-08] MEDS: levETIRAcetam 1,000 MG/100 ML PREMIX 400 MG IV ×2 (05:40→15:22)
[2024-09-08 05:48] LABS: ABG PCO2 40.6 mmHg (35-45); Alveolar-Arterial Oxygen Gradi 1.5 mmHg (5-10); Arterial Blood Gas Hematocrit 38.8 % (42-52); Base Excess ABG 0.1 mmol/L (-2.0-2.0); Blood Gas Sample Site Brachial, right; Blood Gas Sample Type Arterial; Carboxyhemoglobin 1.4 %THgb (0.4-20.1); HGB O2 Sat 95.4 % (95-100); Ionized Calcium Level - ABG 1.2 mmol/L (1.1-1.4); Methemoglobin 0.6 % (0.4-1.5); Oxygen Device NC; Oxygen Saturation ABG 97.3; PO2 ABG 84.4 mmHg (80.0-100.0); Potassium Level - ABG 3.2 mmol/L (3.5-5.0); Total Hemoglobin 12.7 g/dL (14-18)
[2024-09-08 05:49] LABS: Basophils % 0.2 %; Lymphocytes # 0.6 10^3/uL (0.8-4.8); Lymphocytes % 4.6 %; Mean Corpuscular Hemoglobin 25.2 pg (27-33); Mean Corpuscular Volume 84.1 fl (82-101); Mean Platelet Volume 9.1 fL (7.4-10.4); Monocytes # 0.8 10^3/uL (0.2-0.9); Monocytes % 5.9 %; Neutrophils # 11.28 10^3/uL (1.8-7.7); Neutrophils % 88.9 %; Nucleated Red Blood Cells % 0 %; Platelet Count 332 10^3/cmm (157-399); Red Blood Count 5.11 10^6/uL (3.85-5.65); Red Cell Distribution Width 14.4 % (12.1-15.1)
[2024-09-08 06:09] LABS: Alanine Aminotransferase 11 U/L (0-41); Albumin Level 4.1 g/dL (3.5-5.2); Alkaline Phosphatase 110 U/L (40-130); Anion Gap 20.4 (5-19); Aspartate Amino Transferase 20 U/L (0-40); Blood Urea Nitrogen 10 mg/dL (6-20); Calcium 9.8 mg/dL (8.5-10.5); Carbon Dioxide 24 mmol/L (22-29); Chloride 101 mmol/L (98-107); Creatinine Clr Calc Pharmacy 182.8015; Globulin 3.8 g/dL (1.3-4.6); Glucose 102 mg/dL (65-115); Osmolality Calculated 291 mOsm/kg (285-295); Potassium 4.4 mmol/L (3.5-5.1); Sodium 141 mmol/L (136-145); Total Bilirubin 0.5 mg/dL (0.15-1.2); Total Protein 7.9 g/dL (6.6-8.7)
[2024-09-08 06:11] LABS: Lactic Sepsis W/Reflex 3.8 mmol/L (0.5-2.2)
[2024-09-08 06:12] LABS: Hyaline Casts Urine 5.36 /lpf; RBC Urine >100 /hpf (0-2); Squamous Epithelial Cell Urine 0-5 /hpf (0-5); WBC Urine 0-5 /hpf (0-5)
[2024-09-08 06:29] LABS: Bilirubin Urine Neg (Negative); Blood Urine 3+ (Negative); Glucose Urine UA Norm (Normal); Ketones Urine 1+ (Negative); Leukocyte Esterase Urine Negative (Negative); Nitrate Urine Negative (Negative); Protein Urine 1+ (Negative); UA Slide Review UA Slide Review Perf; Urine Appearance Slightly Cloudy (CLEAR); Urine Color Dark Yellow (Yellow); Urobilinogen Urine Neg (Negative); pH Urine 5 (5-7)
[2024-09-08 06:30] LABS: Add Urine Culture? Yes; Amorphous Sediment Urine 2+ /hpf; Bacteria Urine TRACE /hpf; Mucus Urine 3+ /hpf
[2024-09-08] MEDS: piperacillin-tazobactam 3.375 GM in sodium chloride 0.9% (plus) 50 ML IV ×3 (06:31→22:54)
[2024-09-08 06:46] LABS: Influenza A NEGATIVE (Negative); Influenza B NEGATIVE (Negative); Respiratory Syncytial Virus Ce NEGATIVE (Negative); SARS-CoV-2 PCR NEGATIVE (Negative)
[2024-09-08 06:54] LABS: Procalcitonin 0.06 ng/mL (0-0.5)
[2024-09-08 07:10] LABS: NT Pro B Type Natriuretic Pept 687 pg/mL (0-125)
--- NOTE | 2024-09-08 07:13 | CT_ITS ---
WS: [id number] CT chest w con* [id number] HISTORY: Respiratory failure, hypoxia, abnormal x-ray TECHNIQUE: Axial imaging performed through the thorax. Coronal and sagittal reformats are submitted. All CT scans at [facility] use at least one of these dose optimization techniques: automated exposure control; mA and/or kV adjustment per patient size (includes targeted exams where dose is matched to clinical indication); or iterative reconstruction. CONTRAST: Omnipaque 350; 100 mL IV. DLP: 369.62 mGy.cm COMPARISON: 04/30/2023 Lungs and central airway: Low lung volumes due to poor inspiration. Diffuse mild groundglass attenuation and hazy attenuation. Nodular interstitial lung disease predominantly in the mid to lower lung warner. Additional scattered pulmonary nodules are superimposed on the reticulations. These nodules are scattered throughout both lungs, greatest in the lower lung warner with the largest measuring 8 mm at the LEFT lung base. These nodules were not present on the study of 04/30/2023. Pleura: Normal. No pleural effusion. Heart and pericardium: Mild cardiomegaly. Mediastinum and feliberto: Mediastinal and hilar lymphadenopathy. Periaortic lymph nodes measure 1.9 cm. Bilateral hilar adenopathy measuring up to 1.8 cm. Subcarinal lymph node 1.7 cm. Distal paraesophageal lymph node 1.4 cm. Mildly hyperemic 1.3 cm LEFT axillary lymph node. Esophagus is mildly dilated and filled with air. Vessels: Normal aorta. Normal size pulmonary artery. Chest wall and lower neck: Low-attenuation mass measuring 1.8 x 2.4 cm along the LEFT neck at the level of the hyoid bone. Mass is deep to the sternocleidomastoid muscle. This is incompletely visualized but not present on the study of 02/19/2022. Upper abdomen: Normal adrenal glands. Osseous structures: No destructive process. CT/CT chest w con* [id number] IMPRESSION: 1. Diffuse bilateral reticular nodular opacifications most likely due to pneum onia. 2. Additional superimposed more discrete pulmonary nodules scattered throughou t both lungs. The largest 8 mm at the LEFT lung base. These nodules were not pr esent in 2022. Differential includes infection, septic emboli or metastatic dis ease. 3. Mediastinal and hilar lymphadenopathy. Mildly enlarged LEFT axillary lymph node. Neoplastic versus infectious /reactive. 4. Partially visualized LEFT neck mass measuring 1.8 x 2.4 cm just deep to the sternocleidomastoid muscle. This may be a lymph node. Not present on the prior study from 02/19/2022.
[2024-09-08] MEDS: iohexol 350 mg/mL 500 mL Btl (per mL) IV ×2 (07:25→11:52)
[2024-09-08 07:35] LABS: Reflex Lactate Order REFLEX LACTIC ORDERD
[2024-09-08 09:01] LABS: Lactic Acid level (Lactate) 0.8 mmol/L (0.5-2.2)
--- NOTE | 2024-09-08 09:16 | PC.NURSE ---
updated pt's mother on admission
--- NOTE | 2024-09-08 10:12 | PC.NURSE ---
gave update to nurse at [facility] on patient admission, no further questions.
--- NOTE | 2024-09-08 10:22 | CT_ITS ---
WS: [id number] CT NECK WITH CONTRAST HISTORY: Abnormal left neck mass on chest CT near the sternocleidomas TECHNIQUE: Contiguous 2 mm axial images are performed through the neck with intravenous contrast. Sagittal and coronal reformats are also submitted. All CT scans at [facility] use at least one of these dose optimization techniques: automated exposure control; mA and/or kV adjustment per patient size (includes targeted exams where dose is matched to clinical indication); or iterative reconstruction. CONTRAST: CONTRAST: Omnipaque 350; 100 mL IV. DLP: 1049.42 mGy.cm COMPARISON: Chest CT 09/08/2024 Left-sided neck mass is suspected from the prior CT is not identified. Very symmetric appearance of the sternocleidomastoid muscles on this neck CT in a normal appearance. Findings on the prior CT were probably related to positioning and rotation of the patient. Small bilateral cervical chain lymph nodes. Small high RIGHT paratracheal lymph nodes. No pathologically enlarged nodes. Nasopharynx and oropharynx and the larynx are negative. No neck mass. Thyroid gland and salivary glands are normally enhancing with no masses. No osseous abnormalities. Visualized portions of the skull base demonstrate no abnormalities. Orbits and globes are within normal limits. No soft tissue masses. Air-fluid level LEFT maxillary sinus. Mastoid air cells are clear. Previously described reticular and nodular opacifications in the lung apices were described by chest CT on the same day. CT/CT neck w con* [id number] IMPRESSION: 1. No neck mass or cervical adenopathy. The prominent soft tissue along the LE FT neck seen on the chest CT was probably due to rotation of the patient. 2. Normal larynx. 3. LEFT maxillary sinusitis.
[2024-09-08 10:30] LABS: Erythrocyte Sedimentation Rate 25 mm/hr (0-10)
--- NOTE | 2024-09-08 10:54 | PC.NURSE ---
Dr. Mackenzie at bedside, discussed plan of care/concerns with pt.
--- NOTE | 2024-09-08 10:57 | CT_ITS ---
WS: [id number] CT ABDOMEN AND PELVIS WITH CONTRAST HISTORY: Abnormal drainage from PEG, elevated lactic acid, hematuria TECHNIQUE: Imaging performed of the abdomen and pelvis with IV contrast. Single phase imaging of the abdomen. Coronal and sagittal reformats are submitted. All CT scans at [facility] use at least one of these dose optimization techniques: automated exposure control; mA and/or kV adjustment per patient size (includes targeted exams where dose is matched to clinical indication); or iterative reconstruction. IV CONTRAST: Omnipaque 350; 100 mL IV. Oral contrast: No DLP: 1049.42 mGy.cm COMPARISON: 04/30/2023 Lower thorax: Reticular nodular pattern with additional well-circumscribed pulmonary nodules at the lung bases. Heart is normal size. Small hiatal hernia. Distal RIGHT paraesophageal lymph nodes. Mild distal mucosal wall thickening. Liver/biliary system: Normal size with no intrahepatic dilatation. Gallbladder: Normal. No gallstones or wall thickening. No pericholecystic fluid. Pancreas: Normal size pancreas and pancreatic duct. No adjacent inflammation. Spleen: Normal size spleen. No mass or infarct. Adrenal glands: Normal. Right kidney: Normal. Left kidney: Normal. Aorta: Normal. Lymphadenopathy: Top normal size RIGHT paraesophageal lymph node at 9 mm. There is a small lymph nodes present. No midline significantly enlarged mesenteric lymph nodes. Bilateral inguinal lymph nodes. These lymph nodes are just slightly enlarged and hyperemic. Normal lymph node shape is obtained. These are likely reactive. Free fluid: None. GI tract: PEG tube within the stomach. No small bowel obstruction. Normal appendix. There is mild circumferential rectal wall thickening. New since 04/30/2023.. Minimal adjacent mesorectal fat stranding. Abdominal wall: Ventral abdominal wall hernia contains fat only. Pelvis: No free fluid. Normal urinary bladder distention. Bones: Severe degenerative/dysmorphic changes noted at the hip joints, LEFT greater than RIGHT. These are chronic findings of osteonecrosis with progression since 04/30/2023. Very slight anterior wedging of T11, T12 and L1. CT/CT abdomen pelvis w con* [id number] IMPRESSION: 1. Normal position of the PEG tube. No adjacent inflammation or abscess identi fied along the tract. 2. Reidentified is a reticular nodular pattern and superimposed pulmonary nodu les at the lung bases. Differential includes infection, septic emboli and metas tatic disease. 3. Small indeterminate distal paraesophageal lymph nodes and bilateral inguina l lymph nodes. May be reactive as the normal shape of the lymph node is maintai beverly. 4. No ascites. 5. Circumferential rectal wall thickening. New since 2022. Recommend evaluatio n for proctitis. 6. Chronic but progression of bilateral hip osteonecrosis.
[2024-09-08 11:08] LABS: C Reactive Protein 130.5 mg/L (0.0-4.9)
[2024-09-08 11:12] LABS: Procalcitonin 0.07 ng/mL (0-0.5)
--- NOTE | 2024-09-08 12:47 | PM.HP ---
Providers/Chief Complaint Primary Care Provider: Chi Tavera MD Chief Complaint: seizures History of Present Illness Hussein Man is a 24 year old male with a past medical history of autism, cardiomyopathy, declining functional status, seizure disorder, hypothyroidism, GERD, benign pituitary tumor, who presents to [facility] due to seizures. Currently patient is postictal, he does awaken, but does not follow commands, Peoples equal, reactive to light, he does withdraw from pain, maintaining his airway, his GCS score 12 currently on 3 L, blood pressures 90s over 60s, according to ER provider patient was brought into the emergency room by ambulance due to recurrence of solid seizures overnight, lasting up to 10 minutes, concerns for hypoxia, in the emergency room he has received sepsis bolus, Juliane Langley hospitalist team was called for admission. Review of Systems General: Reports: ROS unobtainable due to mental status Medications/Allergies Home Medications ?Medication ?Instructions ?Recorded ?Confirmed ?Last Taken ?Type diltiazem HCl 30 mg tablet 30 mg PO Q8H #90 tabs 05/12/23 09/08/24 09/07/24 20:00 Rx (Cardizem) levetiracetam 1,000 mg tablet 1,000 mg PO BID #60 tabs 05/12/23 09/08/24 09/07/24 20:00 Rx (Keppra) sertraline 100 mg tablet 100 mg peg-tube QAM #30 tabs 05/12/23 09/08/24 09/07/24 Rx baclofen 20 mg tablet 20 mg PO BID 01/13/24 09/08/24 09/07/24 21:00 History acetaminophen 325 mg tablet 650 mg feeding tube Q4H PRN Fever 05/03/24 09/08/24 Unknown History Or Pain levothyroxine 50 mcg tablet 50 mcg feeding tube DAILY 05/03/24 09/08/24 09/07/24 History magnesium hydroxide 400 mg/5 mL 30 ml feeding tube DAILY PRN 05/03/24 09/08/24 Unknown History oral suspension (Milk of Magnesia) Constipation metoprolol tartrate 25 mg tablet 12.5 mg PO DAILY 05/03/24 09/08/24 09/07/24 08:00 History vitamin B complex-zinc 3.6 30 ml PO TID 05/03/24 09/08/2409/07/25 21:00 History mg-manganese 0.75 mg/15 mL oral liquid (Eldertonic) fluticasone propionate 50 2 inh inhalation BEDTIME 09/08/24 09/08/24 09/07/24 History mcg/actuation blister powder for inhalation guaifenesin 100 mg/5 mL oral 300 mg PO Q4H 09/08/24 09/08/24 09/07/24 History liquid (Saida-Tussin) lamotrigine 25 mg tablet 50 mg PO BID 09/08/24 09/08/24 09/07/24 History loratadine 10 mg tablet (Claritin) 10 mg feeding tube DAILY PRN 09/08/24 09/08/24 09/07/24 History Allergic Symptoms risperidone 3 mg tablet (Risperdal) 1.5 mg PO TID 09/08/24 09/08/24 09/07/24 20:00 History Allergies Allergy/AdvReac Type Severity Reaction Status Date / Time No Known Allergies Allergy Verified 09/08/24 05:29 PFSH Acute PFSH: Medical History (Updated 09/08/24 @ 12:56 by Mateo Mackenzie MD) Breakthrough seizure Pressure ulcer of right buttock, stage 2 Pressure ulcer of left buttock, stage 3 Sinus tachycardia Major depressive disorder, recurrent, moderate Cardiomyopathy due metabolic or nutritional disease Autism MDD (major depressive disorder) Tinea cruris Rash Self neglect Declining functional status Abnormal urinalysis Volvulus of intestine Partial small bowel obstruction Shock Acute hypokalemia Acute hypotension Altered mental status Intractable epilepsy Bicytopenia Generalized weakness Anemia Hallux valgus (acquired) Chest pain Vitamin B12 deficiency Allergic rhinitis Vitamin D deficiency Urinary incontinence Hypothyroid Lt inguinal pain Intellectual disability Nicotine dependence, chewing tobacco, uncomplicated Muscle cramps Bilateral foot pain Panic disorder Hyperglycemia Chronic GERD Difficulty swallowing Anxiety Hearing loss in left ear Fever Encounter for screening for COVID-19 Mid back pain on left side Hemoptysis Constipation, chronic Benign tumor of pituitary gland Asthma Seasonal allergies Seizures Acute cystitis Gross hematuria Asthma Surgical History History of tonsillectomy and adenoidectomy Hx of hernia repair Family History Father Heart disease Social History Smoking and tobacco/nicotine status: never used tobacco/nicotine Quit status (tobacco/nicotine): has quit using Second hand smoke exposure: No Alcohol intake: never Substance/Drug Use: never Caregiver/support person: Yes Lives independently: No Housing: Residential Marital status: Single service: No Current occupational status: disabled Current gender identity: Male Vitals/I&O/Wt Last Vital Signs Temp 98.5 F 09/08/24 05:26 Pulse 85 09/08/24 12:29 Resp 13 09/08/24 12:29 BP 102/57 09/08/24 12:29 Pulse Ox 95 09/08/24 12:29 O2 Del Method Nasal Cannula 09/08/24 12:29 O2 Flow Rate 3 09/08/24 12:29 09/07/24 09/08/24 09/08/24 22:59 06:59 14:59 Intake Total 100 / 100 Balance 100 / 100 Weight last 48 hrs Weight 58.967 kg Physical Exam Const: COMMON NORMALS: no acute distress EXAM LIMITATIONS: altered mental status ORIENTATION/CONSCIOUSNESS: Yes awake and Yes confused; not oriented to person, not oriented to place and not oriented to time HENMT: COMMON NORMALS: normocephalic HEAD & SCALP: normocephalic Eye: COMMON NORMALS: Equal, round and reactive pupils present Neck/C-Spine: COMMON NORMALS: no JVD Lymph: LYMPHATIC: no lymphadenopathy noted Resp: EFFORT & INSPECTION: Yes symmetric chest movement, Yes tachypneic, Yes retractions and No uses accessory muscles AUSCULTATION: crackles and wheezes Cardio: COMMON NORMALS: regular rate, regular rhythm, S1 normal heart sound present and S2 normal heart sound present RATE: regular rate RHYTHM: regular rhythm HEART SOUNDS: S1 normal heart sound present and S2 normal heart sound present GI: COMMON NORMALS: Normal to inspection, nondistended, normoactive bowel sounds present, Soft to palpation and non-tender OTHER: PEG tube in place Extremity: COMMON NORMALS: no calf tenderness and no pedal edema Neuro: OTHER: Does not follow neurologic testing Sepsis: Is patient septic: Yes Focused sepsis exam performed: Yes Focused sepsis exam: DP PT pulses palpable, cap refill greater than 2 seconds, no mottling lower extremities, Date exam was performed: 09/08/24 Time exam was performed: 12:00 Data 09/08/24 05:37 09/08/24 05:37 Micro: Microbiology 09/08/24 06:30 Blood Culture - Preliminary Blood SPECIMEN COLLECTED 09/08/24 05:37 Blood Culture - Preliminary Blood SPECIMEN COLLECTED A&P Assessment and plan (1) Bilateral pneumonia: (2) Aspiration pneumonia: (3) Acute hypoxic respiratory failure: (4) Sepsis: (5) Septic shock: (6) Breakthrough seizure: Plan Acute hypoxic respiratory failure -Secondary to bilateral pneumonia -Likely component of aspiration, with breakthrough seizures CT/CT chest w con* [id number] IMPRESSION: 1. Diffuse bilateral reticular nodular opacifications most likely due to pneumonia. 2. Additional superimposed more discrete pulmonary nodules scattered throughout both lungs. The largest 8 mm at the LEFT lung base. These nodules were not present in 2022. Differential includes infection, septic emboli or metastatic disease. 3. Mediastinal and hilar lymphadenopathy. Mildly enlarged LEFT axillary lymph node. Neoplastic versus infectious /reactive. Plan -Monitor respiratory status closely in ICU -Low threshold for intubation -DuoNeb -Vancomycin -Zosyn -Blood cultures -Sputum cultures -Monitor respiratory status closely Sepsis, with septic shock -Status post sepsis bolus -MAP is around 65 -Will consider Levophed based on clinical progress -Normal saline at 125 cc an hour -Antibiotics as above Breakthrough seizures -Keppra 1000 mg IV every 12 hours -Continue Lamictal -Continue baclofen Concern for neck mass Partially visualized LEFT neck mass measuring 1.8 x 2.4 cm just deep to the sternocleidomastoid muscle. This may be a lymph node. Not present on the prior study from 02/19/2022. Neck CT CT/CT neck w con* [id number] IMPRESSION: 1. No neck mass or cervical adenopathy. The prominent soft tissue along the LEFT neck seen on the chest CT was probably due to rotation of the patient. 2. Normal larynx. 3. LEFT maxillary sinusitis. Proctitis -Will consider bowel regimen based on clinical progress Bilateral hip osteonecrosis Full code Lovenox for DVT prophylaxis PDMP PDMP Reviewed: Not Reviewed Attestations Medical Necessity Statement*: Patient requires hospitalization, inpatient, greater than 2 midnights, for pneumonia, sepsis, septic shock, breakthrough seizures, inpatient, greater than 2 midnights Coding Level of Care Code 56596 Diagnoses Bilateral pneumonia J18.9 Aspiration pneumonia J69.0 Acute hypoxic respiratory failure J96.01 Sepsis A41.9 Septic shock A41.9; R65.21 Breakthrough seizure G40.919
--- NOTE | 2024-09-08 13:02 | ECG_ITS ---
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 Measurements Intervals [place] Rate: 104 P: 40 MO: 159 QRS: 22 QRSD: 93 T: 52 QT: 330 QTc: 436 Interpretive Statements SINUS TACHYCARDIA NONSPECIFIC ST & T-WAVE ABNORMALITY Compared to ECG 05/03/2024 11:29:06 Sinus rhythm no longer present T-wave abnormality still present Electronically Signed On 09-11-2024 18:21:11 CDT by Marcel Ingram M.D. [id number] [id number]
[2024-09-08 13:37] LABS: Troponin(5th) Baseline 78 ng/L (0-15)
--- NOTE | 2024-09-08 13:45 | PC.NURSE ---
pt had incontinent bowel and urine episode, full bed change completed. pt position change to pillow under L hip. pt keeps stating no when nurse assessing needs.
[2024-09-08 13:54] LABS: Free T4 Free Thyroxine 1.13 ng/dL (0.82-1.77); T3 Free 1.6 PG/ML (2.0-4.4); Thyroid Stimulating Hormone 7.75 uIU/mL (0.27-4.20)
[2024-09-08 14:05] LABS: Creatine Phosphokinase 1019 U/L (39-308)
--- NOTE | 2024-09-08 14:48 | ECG_ITS ---
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
--- NOTE | 2024-09-08 14:57 | PHA.VACGOAL ---
Vancomycin Goal - Goal Vancomycin Goal:: 15-20 mg/L Vancomycin Indication:: Pneumonia - Therapy Current therapy:: Pip/Tazo Day of therpy:: Day []of [] . Actual body weight (kg): 130 lb - Data Labs: WBC 12.70 10^3/uL (3.29-11.43) H 09/08/24 05:37 RBC 5.11 10^6/uL (3.85-5.65) 09/08/24 05:37 Hgb 12.90 g/dL (11.27-16.99) 09/08/24 05:37 Hct 43.0 % (37-53) 09/08/24 05:37 MCV 84.1 fl (82-101) 09/08/24 05:37 MCH 25.2 pg (27-33) L 09/08/24 05:37 MCHC 30.0 g/dL (30-55) 09/08/24 05:37 RDW 14.4 % (12.1-15.1) 09/08/24 05:37 Sodium 141 mmol/L (136-145) 09/08/24 05:37 Potassium 4.4 mmol/L (3.5-5.1) 09/08/24 05:37 Chloride 101 mmol/L (98-107) 09/08/24 05:37 Carbon Dioxide 24 mmol/L (22-29) 09/08/24 05:37 Anion Gap 20.4 (5-19) H 09/08/24 05:37 BUN 10 mg/dL (6-20) 09/08/24 05:37 Creatinine 0.5 mg/dL (0.7-1.2) L 09/08/24 05:37 GFR Calculation 201.0 mL/min (90-130) H 09/08/24 05:37 Last dialysis session:: N/A Treatment plan:: new consult Regimen:: LOADING DOSE OF 1750 MG X 1 PER DOSING PROTOCOL. MAINTENANCE DOSE OF 750 MG Q8H Follow up:: WILL CONTINUE TO MONITOR AND FOLLOW UP DAILY
[2024-09-08] MEDS: enoxaparin 40 mg/0.4 mL Syringe SUBCUT (15:19)
[2024-09-08] MEDS: ipratropium-albuterol 3 mL Neb INHALATION ×2 (15:19→20:57)
[2024-09-08] MEDS: sodium chloride 0.9% 1,000 ML 125 ML IV ×2 (15:22→22:53)
[2024-09-08] MEDS: pantoprazole 40 mg SDV IVP (15:22)
[2024-09-08 15:41] LABS: Troponin 5 2HR 78.94 ng/L (0-15); Troponin 5 2HR Delta 0.94 ABS# (0-10)
[2024-09-08] MEDS: vancomycin 1,750 MG/350 ML PIGGYBACK 175 MG IV (15:52)
[2024-09-08] MEDS: risperiDONE 1 mg Tablet 1.5 MG PO ×2 (16:50→22:52)
--- NOTE | 2024-09-08 17:42 | PC.NURSE ---
Patient arrived to ICU 1725.
[2024-09-08] MEDS: baclofen 10 mg Tablet 20 MG PO (18:02)
[2024-09-08] MEDS: lamoTRIgine 25 mg Tablet 50 MG PEG-TUBE (18:02)
[2024-09-08 19:43] LABS: Troponin 5 6HR 84.84 ng/L (0-15); Troponin 5 6HR Delta 6.84 ng/L (0-12)
[2024-09-08] MEDS: VANCOMYCIN ADD-Vantage 750 MG in 0.9% NaCl ADD-Vantage 250 ML 250 MG IV (22:54)
[2024-09-09] VITALS (79 sets, daily range): BP systolic 82–128; BP diastolic 50–74; PULSE 0–113; RESP 11–29; TEMP 36.6–37.1; O2SAT 91–99
[2024-09-09 00:50] LABS: Bacillus cereus group Not Detected (NOT DETECT); Bacillus subtillis group Not Detected (NOT DETECT); Corynebacterium Not Detected (NOT DETECT); Cutibacterium acnes (P.acnes) Not Detected (NOT DETECT); Enterococcus Not Detected (NOT DETECT); Enterococcus faecalis Not Detected (NOT DETECT); Enterococcus faecium Not Detected (NOT DETECT); Lactobacillus species Not Detected (NOT DETECT); Listeria Not Detected (NOT DETECT); Listeria monocytogenes Not Detected (NOT DETECT); Micrococcus Not Detected (NOT DETECT); Pan Candida Not Detected (NOT DETECT); Pan Gram-Negative Not Detected (NOT DETECT); Staphylococcus epidermidis Not Detected (NOT DETECT); Staphylococcus lugdunensis Not Detected (NOT DETECT); Staphylococcus species Detected (NOT DETECT); Streptococcus agalactiae Not Detected (NOT DETECT); Streptococcus anginosus group Not Detected (NOT DETECT); Streptococcus pneumoniae Not Detected (NOT DETECT); Streptococcus pyogenes Not Detected (NOT DETECT); Streptococcus species Not Detected (NOT DETECT); mecA Detected (NOT DETECT); mecC Not Detected (NOT DETECT)
[2024-09-09 04:07] LABS: Basophils # 0.1 10^3/uL (0.0-0.1); Basophils % 0.8 %; Eosinophils # 0.1 10^3/uL (0.0-0.8); Eosinophils % 1.7 %; Hematocrit 33.6 % (37-53); Lymphocytes # 0.6 10^3/uL (0.8-4.8); Lymphocytes % 9.6 %; Mean Corpuscular HGB Conc 30.4 g/dL (30-55); Mean Corpuscular Hemoglobin 25.8 pg (27-33); Mean Corpuscular Volume 84.8 fl (82-101); Mean Platelet Volume 8.8 fL (7.4-10.4); Monocytes # 0.4 10^3/uL (0.2-0.9); Monocytes % 6.3 %; Neutrophils # 5.28 10^3/uL (1.8-7.7); Neutrophils % 81.3 %; Nucleated Red Blood Cells % 0 %; Platelet Count 250 10^3/cmm (157-399); Red Blood Count 3.96 10^6/uL (3.85-5.65); Red Cell Distribution Width 14.3 % (12.1-15.1); White Blood Count 6.49 10^3/uL (3.29-11.43)
[2024-09-09 04:19] LABS: INR 1.16 (0.8-1.2)
[2024-09-09 04:28] LABS: Lactic Sepsis W/Reflex 0.6 mmol/L (0.5-2.2)
[2024-09-09] MEDS: levETIRAcetam 1,000 MG/100 ML PREMIX 400 MG IV ×2 (04:34→16:38)
[2024-09-09 04:37] LABS: Alanine Aminotransferase 8 U/L (0-41); Albumin Level 3.4 g/dL (3.5-5.2); Alkaline Phosphatase 81 U/L (40-130); Anion Gap 20.5 (5-19); Aspartate Amino Transferase 14 U/L (0-40); Blood Urea Nitrogen 5 mg/dL (6-20); Calcium 8.6 mg/dL (8.5-10.5); Carbon Dioxide 18 mmol/L (22-29); Chloride 106 mmol/L (98-107); Creatinine Clr Calc Pharmacy 248.6625; Globulin 2.5 g/dL (1.3-4.6); Glucose 63 mg/dL (65-115); Magnesium 1.6 mg/dL (1.7-2.3); Osmolality Calculated 287 mOsm/kg (285-295); Phosphorus 2.4 mg/dL (2.5-4.5); Potassium 3.5 mmol/L (3.5-5.1); Sodium 141 mmol/L (136-145); Thyroid Stimulating Hormone 6.95 uIU/mL (0.27-4.20); Total Bilirubin 0.4 mg/dL (0.15-1.2); Total Protein 5.9 g/dL (6.6-8.7)
[2024-09-09 04:39] LABS: Cholesterol < 4 mg/dL (0-200); Triglycerides 14 mg/dL (0-150)
[2024-09-09 04:40] LABS: Chol HDL Ratio 1.33 mg/dL (1.0-5.00); HDL Cholesterol 3 mg/dL (60-100); LDL Cholesterol Calculated -2 mg/dL (50-129); LDL HDL Ratio -0.67 RATIO (0.00-3.22)
[2024-09-09 04:53] LABS: Estmated Average Glucose 82; Hemoglobin A1C 4.5 % (4.0-6.0)
[2024-09-09] MEDS: sertraline 100 mg Tablet PEG-TUBE (05:45)
[2024-09-09] MEDS: VANCOMYCIN ADD-Vantage 750 MG in 0.9% NaCl ADD-Vantage 250 ML 250 MG IV ×3 (06:39→23:30)
[2024-09-09] MEDS: piperacillin-tazobactam 3.375 GM in sodium chloride 0.9% (plus) 50 ML IV ×3 (06:39→23:29)
[2024-09-09] MEDS: sodium chloride 0.9% 1,000 ML 125 ML IV ×2 (07:42→16:37)
[2024-09-09] MEDS: ipratropium-albuterol 3 mL Neb INHALATION ×4 (08:19→19:45)
[2024-09-09] MEDS: levothyroxine 50 mcg Tablet PEG-TUBE (08:46)
[2024-09-09] MEDS: baclofen 10 mg Tablet 20 MG PO ×2 (08:46→17:05)
[2024-09-09] MEDS: risperiDONE 1 mg Tablet 1.5 MG PO ×3 (08:46→21:19)
[2024-09-09] MEDS: lamoTRIgine 25 mg Tablet 50 MG PEG-TUBE ×2 (08:46→17:05)
--- NOTE | 2024-09-09 13:37 | PC.NUTR ---
Addendum entered and electronically signed by Sissy Gastelum 09/10/24 09:16: If continuous feeding appropriate, recommend Jevity 1.5 beginning @ 15mls/hr increasing 15mls Q8H as tolerated until goal rate of 45mls/hr is reached with FWF 140mls Q4H or per MD discretion. Original Note: Spoke with nurse from [facility]. She said Pt has been eating by mouth since June and has not used his PEG tube since then. When he goes below 50% of PO intake, then they switch to using his PEG tube but again have not used his PEG tube since June. Currently he is on a regular diet but is very picky and prefers grilled cheese and cheeseburgers. He can take his meds by mouth but can be stubborn with them. When he is on a PEG TF regimen he has Jevity 1.5 x 5 cartons (240mls) throughout the day with 60mls FWF flush before and after bolus feeding.
[2024-09-09] MEDS: pantoprazole 40 mg SDV IVP (14:34)
[2024-09-09] MEDS: enoxaparin 40 mg/0.4 mL Syringe SUBCUT (14:34)
--- NOTE | 2024-09-09 14:35 | PC.SLP ---
[employer] attempted to work with the patient and trial a cheeseburger, which is one of the patient's primary food items he consumes at the nursing facility where he resides. The patient refused oral intake. He refused any offers of liquids also. [employer] will attempt to follow-up with the patient tomorrow.
--- NOTE | 2024-09-09 16:03 | P.PN_ITS ---
Subjective 2 Subjective: Patient was seen this morning, he responds to his name, but does not follow other commands, is quite withdrawn, afebrile overnight, normotensive Vitals/I&O/Wt Last Vital Signs Temp 98 F 09/09/24 09:00 Pulse 110 H 09/09/24 15:30 Resp 20 H 09/09/24 15:30 BP 116/59 09/09/24 15:30 Pulse Ox 96 09/09/24 15:18 O2 Del Method Room Air 09/09/24 15:18 O2 Flow Rate 3 09/08/24 12:29 09/09/24 09/09/24 09/09/24 06:59 14:59 22:59 Intake Total 1400 / 4596.583 400 / 400 Balance 1400 / 4596.583 400 / 400 Weight last 48 hrs Weight 71.7 kg Weight 58.967 kg Physical Exam 2 Const: COMMON NORMALS: no acute distress EXAM LIMITATIONS: altered mental status ORIENTATION/CONSCIOUSNESS: Yes awake, Yes oriented to person and Yes confused; not oriented to place and not oriented to time HENMT: COMMON NORMALS: normocephalic HEAD & SCALP: normocephalic Eye: COMMON NORMALS: Equal, round and reactive pupils present PUPIL: Yes Equal, round and reactive pupils present Neck/C-Spine: COMMON NORMALS: no JVD Resp: COMMON NORMALS: normal respiratory effort, No retractions, No use of accessory muscles and clear to auscultation bilaterally AUSCULTATION: clear to auscultation bilaterally Cardio: COMMON NORMALS: no JVD, regular rate, regular rhythm, S1 normal heart sound present and S2 normal heart sound present RATE: regular rate RHYTHM: regular rhythm HEART SOUNDS: S1 normal heart sound present and S2 normal heart sound present GI: COMMON NORMALS: Normal to inspection, nondistended, normoactive bowel sounds present, Soft to palpation, non-tender, No hepatosplenomegaly present, no masses and no bruits PALPATION: Yes Soft to palpation and Yes No hepatosplenomegaly present Extremity: COMMON NORMALS: capillary refill normal, no clubbing, cyanosis or edema, no calf tenderness and no pedal edema Neuro: SENSORIUM/ORIENTATION: Yes oriented to person, No oriented to place and No oriented to time Data 09/09/24 03:53 09/09/24 03:53 Micro: Microbiology 09/08/24 05:45 Urine Culture - Preliminary Urine,Clean Catch 09/08/24 05:37 Blood Culture - Preliminary Blood NEGATIVE TO DATE 09/08/24 06:30 Blood Culture - Preliminary Blood Staphylococcus aureus A&P Assessment and plan (1) Bilateral pneumonia: (2) Aspiration pneumonia: (3) Acute hypoxic respiratory failure: (4) Sepsis: (5) Septic shock: (6) Breakthrough seizure: (7) Staphylococcus aureus bacteremia with sepsis: (8) Encephalopathy acute: Plan Staphylococcus aureus bacteremia with sepsis -CT scan as below, showed a possibility of septic emboli due to discrete pulm nodules scattered throughout both lungs -Source? -Possible endocarditis -No other significant skin breaks, or DTI's -No other artificial hardware -Patient also has a PEG tube, with increased drainage around tube and purulent output Plan -N.p.o. midnight, for transesophageal echocardiogram -Follow blood cultures -Repeat blood cultures tomorrow -Continue vancomycin -CT head -Monitor in ICU closely Acute encephalopathy -Has baseline developmental disorder -CT head -Neurochecks Acute hypoxic respiratory failure -Secondary to bilateral pneumonia -Concerns for septic emboli as above? -Likely component of aspiration, with breakthrough seizures CT/CT chest w con* [id number] IMPRESSION: 1. Diffuse bilateral reticular nodular opacifications most likely due to pneumonia. 2. Additional superimposed more discrete pulmonary nodules scattered throughout both lungs. The largest 8 mm at the LEFT lung base. These nodules were not present in 2022. Differential includes infection, septic emboli or metastatic disease. 3. Mediastinal and hilar lymphadenopathy. Mildly enlarged LEFT axillary lymph node. Neoplastic versus infectious /reactive. Plan -Monitor respiratory status closely in ICU -Low threshold for intubation -DuoNeb -Vancomycin -Zosyn -Blood cultures -Sputum cultures -Monitor respiratory status closely Sepsis, with septic shock -Status post sepsis bolus -MAP is around 65 -Will consider Levophed based on clinical progress -Continue IV fluids -Antibiotics as above Breakthrough seizures -Keppra 1000 mg IV every 12 hours -Continue Lamictal -Continue baclofen Concern for neck mass Partially visualized LEFT neck mass measuring 1.8 x 2.4 cm just deep to the sternocleidomastoid muscle. This may be a lymph node. Not present on the prior study from 02/19/2022. Neck CT CT/CT neck w con* [id number] IMPRESSION: 1. No neck mass or cervical adenopathy. The prominent soft tissue along the LEFT neck seen on the chest CT was probably due to rotation of the patient. 2. Normal larynx. 3. LEFT maxillary sinusitis. Proctitis -Will consider bowel regimen based on clinical progress Bilateral hip osteonecrosis Will have dietary see patient, speech therapy see patient, keep n.p.o. Full code Lovenox for DVT prophylaxis Plan for today continue IV antibiotics, monitor respiratory status closely, follow speech therapy eval, follow dietary eval, consult cardiology PDMP PDMP Reviewed: Not Reviewed Attestations 2 Medical Necessity Statement*: Patient requires hospitalization for acute hypoxic respiratory failure, Staph aureus bacteremia, sepsis, acute encephalopathy, seizures Diagnoses Bilateral pneumonia J18.9 Aspiration pneumonia J69.0 Acute hypoxic respiratory failure J96.01 Sepsis A41.9 Septic shock A41.9; R65.21 Breakthrough seizure G40.919 Staphylococcus aureus bacteremia with sepsis A41.01 Encephalopathy acute G93.40
[2024-09-09 23:15] LABS: Vancomycin Trough 8.8 ug/mL (10-15)
[2024-09-10] VITALS (45 sets, daily range): BP systolic 93–130; BP diastolic 57–77; PULSE 68–109; RESP 11–24; TEMP 36.5–37.6; O2SAT 94–100
[2024-09-10] MEDS: sodium chloride 0.9% 1,000 ML 125 ML IV ×3 (03:15→20:03)
[2024-09-10 04:17] LABS: Basophils % 0.5 %; Eosinophils # 0.1 10^3/uL (0.0-0.8); Eosinophils % 2.1 %; Hematocrit 38.7 % (37-53); Lymphocytes # 0.5 10^3/uL (0.8-4.8); Lymphocytes % 9.1 %; Mean Corpuscular HGB Conc 29.7 g/dL (30-55); Mean Corpuscular Hemoglobin 25.4 pg (27-33); Mean Corpuscular Volume 85.6 fl (82-101); Mean Platelet Volume 9.6 fL (7.4-10.4); Monocytes # 0.5 10^3/uL (0.2-0.9); Monocytes % 8.1 %; Neutrophils # 4.55 10^3/uL (1.8-7.7); Neutrophils % 79.8 %; Nucleated Red Blood Cells % 0 %; Platelet Count 310 10^3/cmm (157-399); Red Blood Count 4.52 10^6/uL (3.85-5.65); Red Cell Distribution Width 14.5 % (12.1-15.1)
[2024-09-10 04:30] LABS: INR 1.13 (0.8-1.2)
[2024-09-10 04:41] LABS: Alanine Aminotransferase 9 U/L (0-41); Albumin Level 3.7 g/dL (3.5-5.2); Alkaline Phosphatase 92 U/L (40-130); Anion Gap 25.5 (5-19); Aspartate Amino Transferase 13 U/L (0-40); Blood Urea Nitrogen 2 mg/dL (6-20); Calcium 9.1 mg/dL (8.5-10.5); Carbon Dioxide 15 mmol/L (22-29); Chloride 103 mmol/L (98-107); Globulin 3.2 g/dL (1.3-4.6); Glucose 79 mg/dL (65-115); Magnesium 1.4 mg/dL (1.7-2.3); Osmolality Calculated 285 mOsm/kg (285-295); Phosphorus 2.3 mg/dL (2.5-4.5); Potassium 3.5 mmol/L (3.5-5.1); Sodium 140 mmol/L (136-145); Total Bilirubin 0.5 mg/dL (0.15-1.2); Total Protein 6.9 g/dL (6.6-8.7)
[2024-09-10 04:48] LABS: Procalcitonin 0.04 ng/mL (0-0.5)
[2024-09-10 04:59] LABS: C Reactive Protein 119.3 mg/L (0.0-4.9)
[2024-09-10] MEDS: levETIRAcetam 1,000 MG/100 ML PREMIX 400 MG IV ×2 (05:18→16:01)
[2024-09-10] MEDS: sertraline 100 mg Tablet PEG-TUBE (05:18)
[2024-09-10] MEDS: piperacillin-tazobactam 3.375 GM in sodium chloride 0.9% (plus) 50 ML IV ×3 (06:43→22:25)
[2024-09-10] MEDS: VANCOMYCIN ADD-Vantage 750 MG in 0.9% NaCl ADD-Vantage 250 ML 250 MG IV (06:44)
[2024-09-10] MEDS: ipratropium-albuterol 3 mL Neb INHALATION ×4 (08:08→20:21)
--- NOTE | 2024-09-10 08:29 | CT_ITS ---
WS: [id number] CT HEAD NONCONTRAST HISTORY: ams TECHNIQUE: Contiguous axial imaging performed through the brain. Bone and soft tissue windows. Sagittal and coronal reformats reviewed. All CT scans at [facility] use at least one of these dose optimization techniques: automated exposure control; mA and/or kV adjustment per patient size (includes targeted exams where dose is matched to clinical indication); or iterative reconstruction. DLP: 1116.05 mGy.cm COMPARISON: 04/29/2023, 05/03/2024 No acute intracranial hemorrhage, midline shift or mass effect. No atrophy or prior infarcts or herniation. Significant change in appearance of the sulci since 04/29/2023. The exact cause is not determined but there has been no change since 05/03/2024. There is no midline shift. No obvious edema. Ventricles: Normal size with no hydrocephalus. No inferior displacement of the cerebellar tonsils. Paranasal sinuses: Mucoperiosteal thickening in the maxillary sinuses. Small air-fluid level LEFT maxillary sinus. Mastoid air cells: Well pneumatized. Calvarium and scalp: Skull is intact with no soft tissue edema or swelling. CT/CT head wo con* [id number] IMPRESSION: 1. No acute intracranial hemorrhage. No edema. 2. CT head is similar to 05/03/2024.
[2024-09-10] MEDS: baclofen 10 mg Tablet 20 MG PO ×2 (09:01→17:31)
[2024-09-10] MEDS: risperiDONE 1 mg Tablet 1.5 MG PO ×3 (09:01→20:06)
[2024-09-10] MEDS: potassium phosphate (mEq K) 40 MEQ in sodium chloride 0.9% (100 ml) 100 ML 27.25 MEQ IV (09:02)
[2024-09-10] MEDS: levothyroxine 50 mcg Tablet PEG-TUBE (09:02)
[2024-09-10] MEDS: magnesium sulfate premix 1 GM/100 ML PIGGYBACK IV (09:02)
[2024-09-10] MEDS: lamoTRIgine 25 mg Tablet 50 MG PEG-TUBE ×2 (09:02→17:31)
--- NOTE | 2024-09-10 09:35 | USCV_ITS ---
Hussein Man Age: 24 Gender: M : 2000 Exam Date: 09/10/2024 11:00 Ordering Phys: Lindsay Jiménez MD ([email or web address]) Technologist: Exam Location: [facility] [place] Indication: Bact infection BP: 110 / 70 HR: 93 Rhythm: Sinus Technical Quality: Adequate MEASUREMENTS (Male / Female) Normal Values 2D ECHO LV Diastolic Diameter PLAX 3.5 cm 4.2 - 5.9 / 3.9 - 5.3 cm IVS Diastolic Thickness 1.1 cm 0.6 - 1.0 / 0.6 - 0.9 cm IVS Systolic Thickness 1.2 cm LVPW Diastolic Thickness 1.1 cm 0.6 - 1.0 / 0.6 - 0.9 cm LVPW Systolic Thickness 1.6 cm LVOT Diameter 2.0 cm LV Ejection Fraction 2D Teich 64.0 % LV Ejection Fraction MOD 4C 72.7 % LV Ejection Fraction MOD 2C 67.8 % LV Ejection Fraction 2C AL 68.4 % LA Diameter 3.2 cm RA Systolic Volume 4C AL 25.3 ml RA Systolic Volume 4C MOD 23.3 ml LA Sys Volume AL 31.9 cm cubed LA Sys Volume Index AL 18.3 cm cubed/m squared Aorta at Sinotubular Diameter 2.4 cm M-MODE LA Ao Ratio MM 1.1 AV Cusp Separation MM 2.6 cm DOPPLER AV Peak Velocity 115.0 cm/s LVOT Peak Velocity 84.0 cm/s AV Area Cont Eq vti 2.2 cm squared AV Area Cont Eq pk 2.4 cm squared MV Peak Velocity 100.0 cm/s MV Area PHT 5.2 cm squared TR Peak Velocity 205.0 cm/s TR Peak Gradient 16.8 mmHg TV Peak E Velocity 84.0 cm/s PV Peak Velocity 114.0 cm/s FINDINGS Left Ventricle Normal left ventricular size, systolic function and wall thickness, with no regional wall motion abnormalities. Left ventricular ejection fraction is estimated at 60 %. Normal diastolic function. Right Ventricle The right ventricle is normal in size and function. Right Atrium The right atrium is normal in size. Left Atrium The left atrium is normal in size. Mitral Valve Structurally normal mitral valve without significant stenosis or prolapse. There is no mitral regurgitation. Aortic Valve Structurally normal aortic valve without significant sclerosis or stenosis. There is no aortic regurgitation. Tricuspid Valve Tricuspid valve not well visualized. Pulmonic Valve Appear to be thickened however it is not well-visualized cannot rule out vegetation. If clinically indicated though it is less likely to be involve however FIDE is a better modality for further exploration of persistent bacteremia. Pericardium Normal pericardium without effusion. Aorta Normal ascending aorta dimension. IVC The inferior vena cava appears normal. CONCLUSIONS Normal left ventricular size, systolic function and wall thickness, with no regional wall motion abnormalities. Left ventricular ejection fraction is estimated at 60 %. Normal diastolic function. Appear to be thickened however it is not well-visualized cannot rule out vegetation. If clinically indicated though it is less likely to be involve however FIDE is a better modality for further exploration of persistent bacteremia. Tricuspid valve not well visualized. There is no pericardial effusion. Right atrial pressure is around 5 mm of mercury. Lindsay Jiménez MD (Electronically Signed) Final Date: 10 September 2024 13:43 S
--- NOTE | 2024-09-10 12:26 | P.CONIM_ITS ---
<Statement entered by Lindsay Jiménez MD - 09/11/24 00:20> Patient was evaluated and cared for in conjunction with an advanced practice practitioner. I personally examined the patient and reviewed the chart and all pertinent data including imaging, telemetry, and laboratory results. I discussed the patient in detail with the advanced practice practitioner. Please see their note for complete H&P testing result and agreed upon plan of care for the patient. 24-year-old male with persistent bacteremia growing staph aureus underwent transthoracic echo which due to suboptimal quality did not reveal proper evaluation of tricuspid and pulmonic valve it is the reason we have been consulted and asked for transesophageal echocardiogram due to high suspicion for endocarditis GENERAL: Patient is awake but not consentable due to being mentally challenged HEART: Regular S1 and S2. Faint systolic murmur but no rub or gallop. LUNGS: Clear to auscultate bilaterally. CENTRAL NERVOUS SYSTEM: Grossly nonfocal. EXTREMITIES: Contractures Assessment and plan Persistent bacteremia Inadequate/suboptimal transthoracic echocardiogram not able to well-visualized tricuspid and pulmonic valve Plan: We therefore proceeded with transesophageal echocardiogram under anesthesia using propofol, please see anesthesiology note. It did not reveal obvious vegetation. Patient left ventricular ejection fraction appeared to be normal no significant valvular abnormality. Providers/Reason For Consult 2 Consulting Physician/Specialty*: Lindsay Jiménez MD Reason for Consult*: Bacteriemia of unknown source Requesting Physician: Dr. Macknezie Attending Physician: Mateo Mackenzie MD Primary Care Provider: Chi Tavera MD History of Present Illness History of Present Illness Hussein Man is a 24 year old male with a history of autism, cardiomyopathy, declining functional status, seizure disorder, hypothyroidism, GERD, benign pituitary tumor, who presented to the hospital due to seizures. He was brought to the ER by ambulance due to recurrence of solid seizures lasting up to 10 minutes with concern of hypoxia. In the ER he received sepsis bolus, Zosyn, and Keppra. His white blood cell was elevated at 12.7. Vital signs are stable. Currently he is slightly tachycardic. He does have a low-grade fever. A chest CT showed pulmonary nodules scattered throughout the lungs that could represent infection, septic emboli or metastatic disease with mediastinal and hilar adenopathy. He also had a left neck mass measuring 1.8 x 2.4 cm. These findings were not present from the prior study a few years ago. His blood culture was positive for Staph aureus. He had a scan of his abdomen that ruled out abcess or infection at his peg tube site. Due to this we have been asked to see the patient for possible transesophageal echocardiogram. Review of Systems 2 Narrative: Unable to obtain due to patient is nonverbal. Medications/Allergies Home Medications ?Medication ?Instructions ?Recorded ?Confirmed ?Last Taken ?Type diltiazem HCl 30 mg tablet 30 mg PO Q8H #90 tabs 05/1209/08/24 09/07/24 20:00 Rx (Cardizem) levetiracetam 1,000 mg tablet 1,000 mg PO BID #60 tabs 05/12/23 09/08/24 09/07/24 20:00 Rx (Keppra) sertraline 100 mg tablet 100 mg peg-tube QAM #30 tabs 05/12/23 09/08/24 09/07/24 Rx baclofen 20 mg tablet 20 mg PO BID 01/13/2409/07/24 21:00 History acetaminophen 325 mg tablet 650 mg feeding tube Q4H OH N Fever 05/03/24 09/08/24 Unknown History Or Pain levothyroxine 50 mcg tablet 50 mcg feeding tube DAILY 05/03/24 09/08/24 09/07/24 History magnesium hydroxide 400 mg/5 mL 30 ml feeding tube ANDREA LY PRN 05/03/24 09/08/24 Unknown History oral suspension (Milk of Magnesia) Constipation metoprolol tartrate 25 mg tablet 12.5 mg PO DAILY 04/1009/08/24 09/07/24 08:00 History vitamin B complex-zinc 3.6 30 ml PO TID 05/03/2409/0809/07/24 21:00 History mg-manganese 0.75 mg/15 mL oral liquid (Eldertonic) fluticasone propionate 50 2 inh inhalation BEDTIME 08/0309/08/24 09/07/24 History mcg/actuation blister powder for inhalation guaifenesin 100 mg/5 mL oral 300 mg PO Q4H 09/08/2409/07/24 History liquid (Saida-Tussin) lamotrigine 25 mg tablet 50 mg PO BID 09/08/2409/07/24 History loratadine 10 mg tablet (Claritin) 10 mg feeding tube DAILY PRN 09/08/24 09/08/24 09/07/24 History Allergic Symptoms risperidone 3 mg tablet (Risperdal) 1.5 mg PO TID 08/0309/08/24 09/07/24 20:00 History Allergies Allergy/AdvReac Type Severity Reaction Status Date / Time No Known Allergies Allergy Verified 09/08/24 05:29 Current Medications Generic Name Dose Route Start Last Admin Trade Name Freq PRN Reason Stop Dose Admin Albuterol/Ipratropium 3 ml 09/08/24 16:00 09/10/24 11:15 Ipratropium-Albuterol 3 Ml Neb INHALATION 3 ml QID.RESPIRATORY BUD Administration Baclofen 20 mg 09/08/24 18:00 09/10/24 09:01 Baclofen 10 Mg Tablet PO 20 mg BID BUD Administration Enoxaparin Sodium 40 mg 09/08/24 14:36 09/09/24 14:34 Enoxaparin 40 Mg/0.4 Ml Syringe SUBCUT 40 mg Q24H BUD Administration Levetiracetam 1,000 mg in 100 mls @ 400 mls/hr 09/08/24 16:00 09/10/24 06:26 Keppra IV Infused Q12H BUD Infusion Piperacillin Sod/Tazobactam 50 mls @ 12.5 mls/hr 09/08/24 15:00 09/10/24 11:40 Sod 3.375 gm/ Sodium Chloride IV Infused Q8H BUD Infusion Sodium Chloride 1,000 mls @ 125 mls/hr 09/09/24 16:15 09/10/24 11:40 Sodium Chloride 0.9% IV 125 mls/hr .Q8H BUD Administration Potassium Phosphate 40 meq/ 109.0909 mls @ 27.25 mls/hr 09/10/24 08:31 09/10/24 09:02 Sodium Chloride IV 09/10/24 12:31 27.25 mls/hr ONCE ONE Administration Lamotrigine 50 mg 09/08/24 18:00 09/10/24 09:02 Lamotrigine 25 Mg Tablet PEG-TUBE 50 mg BID BUD Administration Levothyroxine Sodium 50 mcg 09/09/24 09:00 09/10/24 09:02 Levothyroxine 50 Mcg Tablet PEG-TUBE 50 mcg DAILY BUD Administration Pantoprazole Sodium 40 mg 09/08/24 14:36 09/09/24 14:34 Pantoprazole 40 Mg Sdv IVP 40 mg Q24H BUD Administration Risperidone 1.5 mg 09/08/24 15:00 09/10/24 09:01 Risperidone 1 Mg Tablet PO 1.5 mg TID BUD Administration Sertraline HCl 100 mg 09/09/24 06:00 09/10/24 05:18 Sertraline 100 Mg Tablet PEG-TUBE 100 mg QAM BUD Administration PFSH Acute 2 PFSH: Medical History (Updated 09/09/24 @ 16:13 by Mateo Mackenzie MD) Breakthrough seizure Pressure ulcer of right buttock, stage 2 Pressure ulcer of left buttock, stage 3 Sinus tachycardia Major depressive disorder, recurrent, moderate Cardiomyopathy due metabolic or nutritional disease Autism MDD (major depressive disorder) Tinea cruris Rash Self neglect Declining functional status Abnormal urinalysis Volvulus of intestine Partial small bowel obstruction Shock Acute hypokalemia Acute hypotension Altered mental status Intractable epilepsy Bicytopenia Generalized weakness Anemia Hallux valgus (acquired) Chest pain Vitamin B12 deficiency Allergic rhinitis Vitamin D deficiency Urinary incontinence Hypothyroid Lt inguinal pain Intellectual disability Nicotine dependence, chewing tobacco, uncomplicated Muscle cramps Bilateral foot pain Panic disorder Hyperglycemia Chronic GERD Difficulty swallowing Anxiety Hearing loss in left ear Fever Encounter for screening for COVID-19 Mid back pain on left side Hemoptysis Constipation, chronic Benign tumor of pituitary gland Asthma Seasonal allergies Seizures Acute cystitis Gross hematuria Asthma Surgical History History of tonsillectomy and adenoidectomy Hx of hernia repair Family History Father Heart disease Social History Smoking and tobacco/nicotine status: never used tobacco/nicotine Quit status (tobacco/nicotine): has quit using Second hand smoke exposure: No Alcohol intake: never Substance/Drug Use: never Caregiver/support person: Yes Lives independently: No Housing: [facility] Marital status: Single service: No Current occupational status: disabled Current gender identity: Male Vitals/I&O/Wt Last Vital Signs Temp 99.7 F H 09/10/24 08:00 Pulse 109 H 09/10/24 12:00 Resp 11 L 09/10/24 12:00 BP 105/66 09/10/24 12:00 Pulse Ox 96 09/10/24 12:00 O2 Del Method Room Air 09/10/24 12:00 O2 Flow Rate 3 09/08/24 12:29 09/09/24 09/10/24 09/10/24 22:59 06:59 14:59 Intake Total 430 / 830 1400 / 2230 1460 / 1460 Output Total 750 / 750 1400 / 2150 1150 / 1150 Balance -320 / 80 0 / 80 310 / 310 Weight last 48 hrs Weight 143 lb 4.807 oz Weight 158 lb 1.143 oz Physical Exam 2 Narrative: General: No apparent distress HENMT: normoceophalic Respiratory: Normal respiratory effort, clear to auscultation bilaterally throughout all lung warner, no use of accessory muscles Cardio: No JVD, regular rate, regular rhythm, S1 S2 normal, no murmurs, peripheral pulses 2+ radial palpated bilaterally GI: Normal to inspection, nondistended Extremities: Full ROM, normal, normal capillary refill, no cyanosis or edema Neuro: Does not respond verbally to questions Skin: No rashes or lesions noted, no wounds Urinary Catheter Management: Wins[place]: Cath Placed During This Visit: yes Reason for Continuing Indwelling Catheter: Accurate Measurement of Urinary Output in Critically Ill Patients Urinary Catheter Date of Insertion: 09/09/24 Urinary Catheter Time of Insertion: 21:30 Data 09/10/24 03:48 09/10/24 03:48 Micro: Microbiology 09/08/24 06:30 Blood Culture - Preliminary Blood Staphylococcus aureus 09/09/24 16:30 Body Fluid Culture - Preliminary Other Source 09/08/24 05:45 Urine Culture - Final Urine,Clean Catch 09/10/24 03:52 Blood Culture - Preliminary Blood SPECIMEN COLLECTED 09/10/24 03:48 Blood Culture - Preliminary Blood SPECIMEN COLLECTED A&P Assessment and plan (1) Septic shock: (2) Staphylococcus aureus bacteremia with sepsis: (3) Bilateral pneumonia: Plan Patient has unknown source of staph aureus with blood cultures being positive. At this point, it is recommended that patient proceed with transesophageal echocardiogram to evaluate for possible endocarditis. I have gotten consent over the phone from patient's guardian Felicia Man. We will keep him NPO and procede around 1. Thank you, Dr. Mackenzie, for allowing us to care for this very pleasant 24 year old gentleman. PDMP PDMP Reviewed: Not Reviewed Coding Level of Care Code Acute Code for Chg Fwd Diagnoses Septic shock A41.9; R65.21 Staphylococcus aureus bacteremia with sepsis A41.01 Bilateral pneumonia J18.9
--- NOTE | 2024-09-10 13:23 | ANES.PREANE2 ---
Pre-Anesthetic Assessment Height/Weight: Height 5 ft 3 in Weight 143 lb 4.807 oz Temp Pulse Resp BP Pulse Ox O2 Del Method O2 Flow Rate 99.7 F H 109 H 11 L 105/66 96 Room Air 3 09/10/24 08:00 09/10/24 12:00 09/10/24 12:00 09/10/24 12:00 09/10/24 12:00 09/10/24 12:00 09/08/24 12:29 Preop Diagnosis: Staphylococcus aureus bacteremia with sepsis Was Beta Yuridia taken within 24 hours: Yes Was Clonidine taken within 24 hours: N/A Social No alcohol and No tobacco Exam Unable to be obtained as patient would not tolerate examination Airway Comments: Comments: Unable to be obtained as patient will not tolerate examination Anesthetic Plan ASA status: 3 Anesthesia: MAC Other: Patient initially arrived 09/08/2024 with prolonged seizure activity prior to arrival. Spoke with patient's mom who states that he has been dealing with recurrent seizures for the last year Patient takes chronic Keppra at baseline Patient has Staphylococcus aureus bacteremia with sepsis. CT scan showing septic emboli and pulmonary nodules of bilateral lungs Patient has developmental disorder at baseline Patient is currently on CIWA protocol Vitals are currently stable. Mildly tachycardic with HR 109 Labs from today reviewed and acceptable for procedure Plan for MAC anesthesia Medications/Allergies Home Medications ?Medication ?Instructions ?Recorded ?Confirmed ?Last Taken ?Type diltiazem HCl 30 mg tablet 30 mg PO Q8H #90 tabs 05/12/23 09/08/24 09/07/24 20:00 Rx (Cardizem) levetiracetam 1,000 mg tablet 1,000 mg PO BID #60 tabs 05/12/23 09/08/24 09/07/24 20:00 Rx (Keppra) sertraline 100 mg tablet 100 mg peg-tube QAM #30 tabs 05/12/23 09/08/24 09/07/24 Rx baclofen 20 mg tablet 20 mg PO BID 01/13/24 09/08/24 09/07/24 21:00 History acetaminophen 325 mg tablet 650 mg feeding tube Q4H PRN Fever 05/03/24 09/08/24 Unknown History Or Pain levothyroxine 50 mcg tablet 50 mcg feeding tube DAILY 05/03/24 09/08/24 09/07/24 History magnesium hydroxide 400 mg/5 mL 30 ml feeding tube DAILY PRN 05/03/24 09/08/24 Unknown History oral suspension (Milk of Magnesia) Constipation metoprolol tartrate 25 mg tablet 12.5 mg PO DAILY 05/03/24 09/08/24 09/07/24 08:00 History vitamin B complex-zinc 3.6 30 ml PO TID 05/03/24 09/08/24 09/07/24 21:00 History mg-manganese 0.75 mg/15 mL oral liquid (Eldertonic) fluticasone propionate 50 2 inh inhalation BEDTIME 09/08/24 09/08/24 09/07/24 History mcg/actuation blister powder for inhalation guaifenesin 100 mg/5 mL oral 300 mg PO Q4H 09/08/24 09/08/24 09/07/24 History liquid (Saida-Tussin) lamotrigine 25 mg tablet 50 mg PO BID 09/08/24 09/08/24 09/07/24 History loratadine 10 mg tablet (Claritin) 10 mg feeding tube DAILY PRN 09/08/24 09/08/24 09/07/24 History Allergic Symptoms risperidone 3 mg tablet (Risperdal) 1.5 mg PO TID 09/08/24 09/08/24 09/07/24 20:00 History Allergies Allergy/AdvReac Type Severity Reaction Status Date / Time No Known Allergies Allergy Verified 09/08/24 05:29 Current Medications Generic Name Dose Route Start Last Admin Trade Name Freq PRN Reason Stop Dose Admin Albuterol/Ipratropium 3 ml 09/08/24 16:00 09/10/24 11:15 Ipratropium-Albuterol 3 Ml Neb INHALATION 3 ml QID.RESPIRATORY BUD Administration Baclofen 20 mg 09/08/24 18:00 09/10/24 09:01 Baclofen 10 Mg Tablet PO 20 mg BID BUD Administration Enoxaparin Sodium 40 mg 09/08/24 14:36 09/09/24 14:34 Enoxaparin 40 Mg/0.4 Ml Syringe SUBCUT 40 mg Q24H BUD Administration Levetiracetam 1,000 mg in 100 mls @ 400 mls/hr 09/08/24 16:00 09/10/24 06:26 Keppra IV Infused Q12H BUD Infusion Piperacillin Sod/Tazobactam 50 mls @ 12.5 mls/hr 09/08/24 15:00 09/10/24 11:40 Sod 3.375 gm/ Sodium Chloride IV Infused Q8H BUD Infusion Sodium Chloride 1,000 mls @ 125 mls/hr 09/09/24 16:15 09/10/24 11:40 Sodium Chloride 0.9% IV 125 mls/hr .Q8H BUD Administration Lamotrigine 50 mg 09/08/24 18:00 09/10/24 09:02 Lamotrigine 25 Mg Tablet PEG-TUBE 50 mg BID BUD Administration Levothyroxine Sodium 50 mcg 09/09/24 09:00 09/10/24 09:02 Levothyroxine 50 Mcg Tablet PEG-TUBE 50 mcg DAILY BUD Administration Pantoprazole Sodium 40 mg 09/08/24 14:36 09/09/24 14:34 Pantoprazole 40 Mg Sdv IVP 40 mg Q24H BUD Administration Risperidone 1.5 mg 09/08/24 15:00 09/10/24 09:01 Risperidone 1 Mg Tablet PO 1.5 mg TID BUD Administration Sertraline HCl 100 mg 09/09/24 06:00 09/10/24 05:18 Sertraline 100 Mg Tablet PEG-TUBE 100 mg QAM BUD Administration PFSH Anesthesia Medical History (Updated 09/09/24 @ 16:13 by Mateo Mackenzie MD) Breakthrough seizure Pressure ulcer of right buttock, stage 2 Pressure ulcer of left buttock, stage 3 Sinus tachycardia Major depressive disorder, recurrent, moderate Cardiomyopathy due metabolic or nutritional disease Autism MDD (major depressive disorder) Tinea cruris Rash Self neglect Declining functional status Abnormal urinalysis Volvulus of intestine Partial small bowel obstruction Shock Acute hypokalemia Acute hypotension Altered mental status Intractable epilepsy Bicytopenia Generalized weakness Anemia Hallux valgus (acquired) Chest pain Vitamin B12 deficiency Allergic rhinitis Vitamin D deficiency Urinary incontinence Hypothyroid Lt inguinal pain Intellectual disability Nicotine dependence, chewing tobacco, uncomplicated Muscle cramps Bilateral foot pain Panic disorder Hyperglycemia Chronic GERD Difficulty swallowing Anxiety Hearing loss in left ear Fever Encounter for screening for COVID-19 Mid back pain on left side Hemoptysis Constipation, chronic Benign tumor of pituitary gland Asthma Seasonal allergies Seizures Acute cystitis Gross hematuria Asthma Surgical History History of tonsillectomy and adenoidectomy Hx of hernia repair Family History Father Heart disease Social History Smoking and tobacco/nicotine status: never used tobacco/nicotine Quit status (tobacco/nicotine): has quit using Second hand smoke exposure: No Alcohol intake: never Substance/Drug Use: never Caregiver/support person: Yes Lives independently: No Housing: [facility] Marital status: Single service: No Current occupational status: disabled Current gender identity: Male Data Anesthesia 09/10/24 03:48 09/10/24 03:48 Short CBC 09/09/24 09/10/24 Range/Units 03:53 03:48 WBC 6.49 5.70 (3.29-11.43) 10^3/uL Hgb 10.20 L 11.50 (11.27-16.99) g/dL Hct 33.6 L 38.7 (37-53) % MCV 84.8 85.6 (82-101) fl Plt Count 250 310 (157-399) 10^3/cmm Neut % (Auto) 81.3 79.8 % Neut # (Auto) 5.28 4.55 (1.8-7.7) 10^3/uL BMP 09/09/24 09/10/24 03:53 03:48 Sodium 141 140 Potassium 3.5 3.5 Chloride 106 103 Carbon Dioxide 18 L 15 L BUN 5 L 2 L Creatinine 0.4 L 0.5 L Glucose 63 L 79 Calcium 8.6 9.1 Cardiac Enzymes 09/08/24 09/08/24 09/08/24 Range/Units 13:04 15:03 19:14 Creatine Kinase 1019 H* (39-308) U/L Troponin T Baseline 78 H (0-15) ng/L Troponin T 120 Minute 78.94 H (0-15) ng/L Delta Troponin T 0.94 (0-10) ABS# Troponin T Hi Sens 6Hr 84.84 H (0-15) ng/L Troponin T Hi Sens 6Hr Delta 6.84 (0-12) ng/L Liver Function 09/09/24 09/10/24 Range/Units 03:53 03:48 Total Bilirubin 0.4 0.5 (0.15-1.2) mg/dL AST 14 13 (0-40) U/L ALT 8 9 (0-41) U/L Alkaline Phosphatase 81 92 (40-130) U/L Albumin 3.4 L 3.7 (3.5-5.2) g/dL Coags 09/09/24 09/10/24 03:53 03:48 PT 15.60 H 15.30 H INR 1.16 1.13 C-Reactive Protein 119.3 H Microbiology 09/08/24 06:30 Blood Culture - Preliminary Blood Staphylococcus aureus 09/09/24 16:30 Body Fluid Culture - Preliminary Other Source 09/08/24 05:45 Urine Culture - Final Urine,Clean Catch 09/10/24 03:52 Blood Culture - Preliminary Blood SPECIMEN COLLECTED 09/10/24 03:48 Blood Culture - Preliminary Blood SPECIMEN COLLECTED Cardiac Studies: Echocardiogram 05/06/23
--- NOTE | 2024-09-10 14:21 | PC.NURSE ---
FIDE was performed at bedside with anesthesiologist, auto research engineer, and motorcycle technician. Procedure was uneventful.
--- NOTE | 2024-09-10 14:26 | ANE.PACU2 ---
Inpatient post-anesthesia follow up: Airway intact: Yes Vital signs: Temperature 99.7 F Pulse Rate 109 Respiratory Rate 11 Blood Pressure 105/66 Pulse Oximetry 96 Oxygen Delivery Me thod Room Air Oxygen Flow Rate 3 Fraction of Inspir ed Oxygen Hydration adequate: Yes Nausea and vomiting: No Pain level: 1 Mental status: Baseline
--- NOTE | 2024-09-10 14:40 | P.PN_ITS ---
Subjective 2 Subjective: Patient was seen this morning, he does awaken, does not follow commands, afebrile overnight, normotensive Vitals/I&O/Wt Last Vital Signs Temp 98.9 F 09/10/24 14:00 Pulse 89 09/10/24 14:00 Resp 18 09/10/24 13:30 BP 106/70 09/10/24 14:00 Pulse Ox 100 09/10/24 14:00 O2 Del Method Nasal Cannula 09/10/24 14:00 O2 Flow Rate 3 09/10/24 14:00 09/09/24 09/10/24 09/10/24 22:59 06:59 14:59 Intake Total 430 / 830 1400 / 2230 1460 / 1460 Output Total 750 / 750 1400 / 2150 1150 / 1150 Balance -320 / 80 0 / 80 310 / 310 Weight last 48 hrs Weight 65 kg Weight 71.7 kg Physical Exam 2 Const: COMMON NORMALS: no acute distress Neck/C-Spine: COMMON NORMALS: no JVD Resp: COMMON NORMALS: normal respiratory effort, No retractions, No use of accessory muscles and clear to auscultation bilaterally AUSCULTATION: clear to auscultation bilaterally Cardio: COMMON NORMALS: no JVD, regular rate, regular rhythm, S1 normal heart sound present and S2 normal heart sound present RATE: regular rate RHYTHM: regular rhythm HEART SOUNDS: S1 normal heart sound present and S2 normal heart sound present GI: COMMON NORMALS: Normal to inspection, nondistended, normoactive bowel sounds present and non-tender Extremity: COMMON NORMALS: no pedal edema Psych: COMMON NORMALS: mental status grossly normal Urinary Catheter Management: Wins[place]: Cath Placed During This Visit: yes Reason for Continuing Indwelling Catheter: Accurate Measurement of Urinary Output in Critically Ill Patients Urinary Catheter Date of Insertion: 09/09/24 Urinary Catheter Time of Insertion: 21:30 Data 09/10/24 03:48 09/10/24 03:48 Micro: Microbiology 09/08/24 06:30 Blood Culture - Preliminary Blood Staphylococcus aureus 09/09/24 16:30 Body Fluid Culture - Preliminary Other Source 09/08/24 05:45 Urine Culture - Final Urine,Clean Catch 09/10/24 03:52 Blood Culture - Preliminary Blood SPECIMEN COLLECTED 09/10/24 03:48 Blood Culture - Preliminary Blood SPECIMEN COLLECTED A&P Assessment and plan (1) Bilateral pneumonia: (2) Aspiration pneumonia: (3) Acute hypoxic respiratory failure: (4) Sepsis: (5) Septic shock: (6) Breakthrough seizure: (7) Staphylococcus aureus bacteremia with sepsis: (8) Encephalopathy acute: Plan Staphylococcus aureus bacteremia with sepsis -CT scan as below, showed a possibility of septic emboli due to discrete pulm nodules scattered throughout both lungs -Source? - Concern for endocarditis -No other significant skin breaks, or DTI's -No other artificial hardware -Patient also has a PEG tube, with increased drainage around tube and purulent output Plan -N.p.o. for transesophageal echocardiogram -Follow blood cultures -Repeat blood cultures tomorrow -Continue vancomycin -CT head pending pending pending -Cultures from PEG tube site -Monitor in ICU closely Acute encephalopathy -Has baseline developmental disorder -CT head -Neurochecks Acute hypoxic respiratory failure -Secondary to bilateral pneumonia -Concerns for septic emboli as above? -Likely component of aspiration, with breakthrough seizures CT/CT chest w con* [id number] IMPRESSION: 1. Diffuse bilateral reticular nodular opacifications most likely due to pneumonia. 2. Additional superimposed more discrete pulmonary nodules scattered throughout both lungs. The largest 8 mm at the LEFT lung base. These nodules were not present in 2022. Differential includes infection, septic emboli or metastatic disease. 3. Mediastinal and hilar lymphadenopathy. Mildly enlarged LEFT axillary lymph node. Neoplastic versus infectious /reactive. Plan -Monitor respiratory status closely in ICU -Low threshold for intubation -DuoNeb -Vancomycin -Zosyn -Blood cultures -Sputum cultures -Monitor respiratory status closely Sepsis, with septic shock -Status post sepsis bolus -MAP is around 65 -Will consider Levophed based on clinical progress -Continue IV fluids -Antibiotics as above Breakthrough seizures -Keppra 1000 mg IV every 12 hours -Continue Lamictal -Continue baclofen Concern for neck mass Partially visualized LEFT neck mass measuring 1.8 x 2.4 cm just deep to the sternocleidomastoid muscle. This may be a lymph node. Not present on the prior study from 02/19/[address]22. Neck CT CT/CT neck w con* [id number] IMPRESSION: 1. No neck mass or cervical adenopathy. The prominent soft tissue along the LEFT neck seen on the chest CT was probably due to rotation of the patient. 2. Normal larynx. 3. LEFT maxillary sinusitis. Proctitis -Will consider bowel regimen based on clinical progress Bilateral hip osteonecrosis Will have dietary see patient, speech therapy see patient, keep n.p.o. Full code Lovenox for DVT prophylaxis Plan for today continue IV antibiotics, monitor respiratory status closely, f transesophageal echocardiogram, follow repeat cultures PDMP PDMP Reviewed: Not Reviewed Attestations 2 Medical Necessity Statement*: Patient requires hospitalization for staphylococcal aureus bacteremia Diagnoses Bilateral pneumonia J18.9 Aspiration pneumonia J69.0 Acute hypoxic respiratory failure J96.01 Sepsis A41.9 Septic shock A41.9; R65.21 Breakthrough seizure G40.919 Staphylococcus aureus bacteremia with sepsis A41.01 Encephalopathy acute G93.40
[2024-09-10] MEDS: VANCOMYCIN ADD-Vantage 1,000 MG in 0.9% NaCl ADD-Vantage 250 ML 250 MG IV ×2 (16:02→22:26)
[2024-09-10] MEDS: enoxaparin 40 mg/0.4 mL Syringe SUBCUT (16:02)
[2024-09-10] MEDS: pantoprazole 40 mg SDV IVP (16:04)
--- NOTE | 2024-09-10 16:10 | USCV_ITS ---
Hussein Man Age: 24 Gender: M : 2000 Exam Date: 09/10/2024 13:50 Ordering Phys: Maeto Mackenzie MD Technologist: Exam Location: [facility] [place] Indication: ? bact BP: / HR: Rhythm: Sinus Technical Quality: Good MEASUREMENTS (Male / Female) Normal Values FINDINGS Left Ventricle Normal left ventricular size, systolic function and wall thickness, with no regional wall motion abnormalities. Left ventricular ejection fraction is estimated at 60 %. No intracardiac shunt noted.No vegetation noted. Right Ventricle The right ventricle is normal in size and function. Right Atrium Normal right atrial size. Left Atrium No left atrial mass or thrombus visualized. No thrombus present in the left atrial appendage. Mitral Valve Structurally normal mitral valve. No mitral valve stenosis. Trace mitral valve regurgitation. Aortic Valve Structurally normal trileaflet aortic valve. No aortic valve stenosis. No aortic valve regurgitation. Tricuspid Valve Structurally normal tricuspid valve. No tricuspid valve stenosis. Trace tricuspid valve regurgitation. Pulmonic Valve Structurally normal pulmonic valve. No pulmonary valve stenosis. No pulmonary valve regurgitation. Pericardium Normal pericardium without effusion. Aorta Normal ascending aorta dimension. IVC Inferior vena cava not visualized. CONCLUSIONS Normal left ventricular size, systolic function and wall thickness, with no regional wall motion abnormalities. Left ventricular ejection fraction is estimated at 60 %. No intracardiac shunt noted.No vegetation noted. There is no pericardial effusion. There are no intracardiac masses. No significant valve abnormalities. No vegetation noted based on this study Lindsay Jiménez MD (Electronically Signed) Final Date: 10 September 2024 22:13 S
--- NOTE | 2024-09-10 17:02 | PC.SLP ---
INSURANCE CHECKER evaluation attempted from 4:40 to 5:05 pm. Patient given choices of various beverages and food items. Increased time given to process and give responses. Grilled cheese from cafeteria attempted as well as coke. Patient allowed coke to touch his lips and a very small amount to enter oral cavity (1/4 teaspoon). Further attempts ran down his chin due to refusal of oral intake. Patient shook his head no to items presented. Unable to complete metal tile lather evaluation at this time. Will attempt tomorrow.
--- NOTE | 2024-09-10 18:46 | PC.NURSE ---
Report was given to HARJINDER Kimbrough in med surge. Patient was transferred with all belongings. Patient was stable during transfer.
[2024-09-11] VITALS (13 sets, daily range): BP systolic 98–114; BP diastolic 57–70; PULSE 81–118; RESP 15–19; TEMP 36.4–37.4; O2SAT 92–97
[2024-09-11 00:42] LABS: Glucose Point of Care 74 mg/dL (70-110)
[2024-09-11 02:24] LABS: Basophils % 0.8 %; Eosinophils # 0.2 10^3/uL (0.0-0.8); Eosinophils % 4.1 %; Hematocrit 36.8 % (37-53); Lymphocytes # 0.6 10^3/uL (0.8-4.8); Lymphocytes % 10.9 %; Mean Corpuscular HGB Conc 30.4 g/dL (30-55); Mean Corpuscular Hemoglobin 25.8 pg (27-33); Mean Corpuscular Volume 84.8 fl (82-101); Mean Platelet Volume 9.7 fL (7.4-10.4); Monocytes # 0.4 10^3/uL (0.2-0.9); Monocytes % 7.9 %; Neutrophils # 4.05 10^3/uL (1.8-7.7); Neutrophils % 76.1 %; Nucleated Red Blood Cells % 0 %; Platelet Count 303 10^3/cmm (157-399); Red Blood Count 4.34 10^6/uL (3.85-5.65); Red Cell Distribution Width 14.6 % (12.1-15.1); White Blood Count 5.32 10^3/uL (3.29-11.43)
[2024-09-11 02:48] LABS: Alanine Aminotransferase 6 U/L (0-41); Albumin Level 3.6 g/dL (3.5-5.2); Alkaline Phosphatase 88 U/L (40-130); Anion Gap 21.7 (5-19); Aspartate Amino Transferase 10 U/L (0-40); Calcium 8.9 mg/dL (8.5-10.5); Carbon Dioxide 13 mmol/L (22-29); Chloride 107 mmol/L (98-107); Creatinine Clr Calc Pharmacy 190.4433; Globulin 2.8 g/dL (1.3-4.6); Glucose 74 mg/dL (65-115); Magnesium 1.5 mg/dL (1.7-2.3); Phosphorus 2.6 mg/dL (2.5-4.5); Potassium 3.7 mmol/L (3.5-5.1); Sodium 138 mmol/L (136-145); Total Bilirubin 0.6 mg/dL (0.15-1.2); Total Protein 6.4 g/dL (6.6-8.7)
[2024-09-11 03:00] LABS: Blood Urea Nitrogen 1 mg/dL (6-20); Osmolality Calculated 280 mOsm/kg (285-295)
[2024-09-11 03:01] LABS: Procalcitonin 0.05 ng/mL (0-0.5)
[2024-09-11 03:09] LABS: INR 1.21 (0.8-1.2)
[2024-09-11 03:12] LABS: C Reactive Protein 124.6 mg/L (0.0-4.9)
[2024-09-11] MEDS: sodium chloride 0.9% 1,000 ML 125 ML IV ×3 (04:38→22:30)
[2024-09-11] MEDS: levETIRAcetam 1,000 MG/100 ML PREMIX 400 MG IV ×2 (04:38→17:02)
[2024-09-11] MEDS: VANCOMYCIN ADD-Vantage 1,000 MG in 0.9% NaCl ADD-Vantage 250 ML 250 MG IV (06:15)
[2024-09-11] MEDS: piperacillin-tazobactam 3.375 GM in sodium chloride 0.9% (plus) 50 ML IV ×3 (06:15→22:30)
[2024-09-11] MEDS: sertraline 100 mg Tablet PEG-TUBE (06:15)
[2024-09-11] MEDS: risperiDONE 1 mg Tablet 1.5 MG PO ×3 (08:09→20:38)
[2024-09-11] MEDS: levothyroxine 50 mcg Tablet PEG-TUBE (08:09)
[2024-09-11] MEDS: lamoTRIgine 25 mg Tablet 50 MG PEG-TUBE ×2 (08:09→17:12)
[2024-09-11] MEDS: baclofen 10 mg Tablet 20 MG PO ×2 (08:09→17:12)
[2024-09-11] MEDS: ipratropium-albuterol 3 mL Neb INHALATION ×4 (08:16→21:12)
--- NOTE | 2024-09-11 12:22 | CTR_ITS ---
PROCEDURE INFORMATION: Exam: CT Lumbar Spine Without Contrast Exam date and time: 09/11/2024 1:26 PM Age: 24 years old Clinical indication: Other: Discitis TECHNIQUE: Imaging protocol: Computed tomography of the lumbar spine without contrast. Radiation optimization: All CT scans at this facility use at least one of these dose optimization techniques: automated exposure control; mA and/or kV adjustment per patient size (includes targeted exams where dose is matched to clinical indication); or iterative reconstruction. COMPARISON: CT lumbar spine w con [id number] 05/04/2023 9:54 AM RADIATION DOSE METRICS: Total DLP (mGy-cm): 363.3 FINDINGS: Bones/joints: No acute fracture. Normal alignment. No significant disc bulge or herniation. No severe spinal canal stenosis. No significant neural foraminal narrowing. Kidneys and ureters: Bilateral nonobstructing renal calculi. Soft tissues: Unremarkable. CT/CT lumbar spine wo con* [id number] IMPRESSION: No acute findings.
--- NOTE | 2024-09-11 12:22 | CTR_ITS ---
PROCEDURE INFORMATION: Exam: CT Cervical Spine Without Contrast Exam date and time: 09/11/2024 1:24 PM Age: 24 years old Clinical indication: Other: Discitis TECHNIQUE: Imaging protocol: Computed tomography of the cervical spine without contrast. Radiation optimization: All CT scans at this facility use at least one of these dose optimization techniques: automated exposure control; mA and/or kV adjustment per patient size (includes targeted exams where dose is matched to clinical indication); or iterative reconstruction. COMPARISON: CT neck w con* [id number] 09/08/2024 11:32 AM RADIATION DOSE METRICS: Total DLP (mGy-cm): 159.17 FINDINGS: Bones: No acute fracture. Normal alignment. No significant disc bulge or herniation. No severe spinal canal stenosis. No significant neural foraminal narrowing. Lungs: Bilateral upper lobe pulmonary nodules, the largest in the left upper lobe measuring mm. These are incompletely imaged. Soft tissues: Unremarkable. CT/CT cervical spin wo con* [id number] IMPRESSION: 1. No acute osseous abnormality. 2. Incompletely imaged upper lobe pulmonary nodules suspicious for neoplastic disease.
--- NOTE | 2024-09-11 12:22 | CTR_ITS ---
PROCEDURE INFORMATION: Exam: CT Thoracic Spine Without Contrast Exam date and time: 09/11/2024 1:26 PM Age: 24 years old Clinical indication: Other: Discitis TECHNIQUE: Imaging protocol: Computed tomography of the thoracic spine without contrast. Radiation optimization: All CT scans at this facility use at least one of these dose optimization techniques: automated exposure control; mA and/or kV adjustment per patient size (includes targeted exams where dose is matched to clinical indication); or iterative reconstruction. COMPARISON: MR thoracic spine wo/w [id number] 05/07/2023 10:30 AM RADIATION DOSE METRICS: Total DLP (mGy-cm): 482.3 FINDINGS: Bones/joints: No acute fracture. Normal alignment. No significant disc bulge or herniation. No severe spinal canal stenosis. No significant neural foraminal narrowing. Soft tissues: Unremarkable. Extensive pulmonary nodules are present particularly in the lower lobes. These are unchanged since the CT scan several days ago. CT/CT thoracic spin wo con* [id number] IMPRESSION: Unremarkable CT Spine.
--- NOTE | 2024-09-11 12:28 | P.PN_ITS ---
Subjective 2 Subjective: - Patient was seen this morning he is al ert to person, not to place, not to time, is not verbal this morning, he does track me around the room - Patient has 2 out of 4 blood cultures positive for MRSA - Patient's transesophageal echocardiogr am did not show any significant valvular vegetations - Concerned his PEG tube could be the so urce of his patient is a MRSA bacteremia however patient continues to have poor oral intake - [facility], and patient's guardian to find out how he has been feeding at the long-term - According to speech therapy/dietary, hill araya is a picky eater, eats grilled cheese sandwiches, drinks Coke, apparently his PEG tube has not been used since June, and only be used once his p.o. intake has decreased by 50% - But I have been trying to reach out to patient's long-term [facility] however nobody is picking up at the nursing facility for the last day - I have also reached out to patient's g uardian but I have not heard back from them -Patient here has had poor appetite, poo r feeding - Will do CT scan of the spine to rule o ut discitis - Will consult general surgery Vitals/I&O/Wt Last Vital Signs Temp 98.6 F 09/11/24 11:09 Pulse 105 H 09/11/24 11:20 Resp 16 09/11/24 11:17 BP 110/68 09/11/24 11:09 Pulse Ox 97 09/11/24 11:17 O2 Del Method Room Air 09/11/24 11:17 O2 Flow Rate 3 09/10/24 14:00 09/10/24 09/11/24 09/11/24 22:59 06:59 14:59 Intake Total 1569.0909 / 3029.0909 1400 / 4429.0909 300 / 300 Output Total 1250 / 2400 1800 / 4200 1550 / 1550 Balance 319.0909 / 629.0909 -400 / 229.0909 -1250 / -1250 Weight last 48 hrs Weight 62.596 kg Weight 65 kg Physical Exam 2 Const: COMMON NORMALS: no acute distress ORIENTATION/CONSCIOUSNESS: Yes awake and Yes oriented to person; not oriented to place and not oriented to time Resp: COMMON NORMALS: normal respiratory effort, No retractions, No use of accessory muscles and clear to auscultation bilaterally AUSCULTATION: clear to auscultation bilaterally Cardio: COMMON NORMALS: regular rate, regular rhythm, S1 normal heart sound present and S2 normal heart sound present RATE: regular rate RHYTHM: r egular rhythm HEART SOUNDS: S1 normal heart sound present and S2 normal heart sound present GI: COMMON NORMALS: Normal to inspection, nondistended, normoactive bowel sounds present and non-tender Extremity: COMMON NORMALS: no pedal edema Neuro: SENSORIUM/ORIENTATION: Yes oriented to person, No oriented to place and No oriented to time Psych: COMMON NORMALS: mental status grossly normal Urinary Catheter Management: Winslow: Cath Placed During This Visit: yes Reason for Continuing Indwelling Catheter: Other Urinary Catheter Date of Insertion: 09/09/24 Urinary Catheter Time of Insertion: 21:30 Data 09/11/24 01:41 09/11/24 01:41 Micro: Microbiology 09/08/24 06:30 Blood Culture - Preliminary Blood Methicillin Resis Staph Aureus 09/09/24 16:30 Body Fluid Culture - Preliminary Other Source Gram Negative Rods 09/10/24 03:52 Blood Culture - Preliminary Blood NEGATIVE TO DATE 09/10/24 03:48 Blood Culture - Preliminary Blood NEGATIVE TO DATE 09/08/24 05:45 Urine Culture - Final Urine,Clean Catch A&P Assessment and plan (1) Bilateral pneumonia: (2) Aspiration pneumonia: (3) Acute hypoxic respiratory failure: (4) Sepsis: (5) Septic shock: (6) Breakthrough seizure: (7) Staphylococcus aureus bacteremia with sepsis: (8) Encephalopathy acute: (9) MRSA bacteremia: Plan MRSA bacteremia with sepsis -CT scan as below, showed a possibility of septic emboli due to discrete pulm nodules scattered throughout both lungs -Source? - Concern for endocarditis, transesophageal echocardiogram did not show any significant evidence of valvular vegetations -No other significant skin breaks, or DTI's -No other artificial hardware -Patient has a PEG tube, -Possible discitis? Plan - Continue vancomycin -Follow repeat blood cultures - Follow cultures of PEG tube site - CT scan of spine - Monitor closely Poor feeding - Patient has autism, and is very selective in what he eats, and who he will eat for - I have yet to receive a call back from long-term - But according to dietary, who spoke to nurses at [facility], patient has been eating by mouth since June, has not used his PEG tube since then, when he goes below 50% of p.o. intake then they will switch to PEG tube feedings, he is a picky eater and prefers grilled cheese and cheeseburgers, takes meds by mouth, but can be stubborn ? Here he has not taking anything orally so far, speech therapy has been consulted - If his oral intake remains diminished we might need to put in a nasogastric tube to help with feeding - Moreover the bigger question is is that if I do take out his PEG tube, can we just exchange it out or must be out for at least 4 weeks this will be an issue in terms of his long-term feeding Acute encephalopathy -Has baseline developmental disorder -CT head -Neurochecks Acute hypoxic respiratory failure -Secondary to bilateral pneumonia -Concerns for septic emboli as above? -Likely component of aspiration, with breakthrough seizures - Continue IV antibiotics CT/CT chest w con* [id number] IMPRESSION: 1. Diffuse bilateral reticular nodular opacifications most likely due to pneumonia. 2. Additional superimposed more discrete pulmonary nodules scattered throughout both lungs. The largest 8 mm at the LEFT lung base. These nodules were not present in 2022. Differential includes infection, septic emboli or metastatic disease. 3. Mediastinal and hilar lymphadenopathy. Mildly enlarged LEFT axillary lymph node. Neoplastic versus infectious /reactive. Plan -Monitor respiratory status closely in ICU -Low threshold for intubation -DuoNeb -Vancomycin -Zosyn -Blood cultures -Sputum cultures -Monitor respiratory status closely Sepsis, with septic shock, resolved -Status post sepsis bolus -MAP is around 65 -Will consider Levophed based on clinical progress -Continue IV fluids -Antibiotics as above Breakthrough seizures -Keppra 1000 mg IV every 12 hours -Continue Lamictal -Continue baclofen Concern for neck mass Partially visualized LEFT neck mass measuring 1.8 x 2.4 cm just deep to the sternocleidomastoid muscle. This may be a lymph node. Not present on the prior study from 02/19/2022. Neck CT CT/CT neck w con* [id number] IMPRESSION: 1. No neck mass or cervical adenopathy. The prominent soft tissue along the LEFT neck seen on the chest CT was probably due to rotation of the patient. 2. Normal larynx. 3. LEFT maxillary sinusitis. Proctitis -Will consider bowel regimen based on clinical progress Bilateral hip osteonecrosis Will have dietary see patient, speech therapy see patient, keep n.p.o. Full code Lovenox for DVT prophylaxis Plan for today continue IV antibiotics, consult general surgery, encourage p.o. intake PDMP PDMP Reviewed: Not Reviewed Attestations 2 Medical Necessity Statement*: Patient requires hospitalization for MRSA bacteremia Diagnoses Bilateral pneumonia J18.9 Aspiration pneumonia J69.0 Acute hypoxic respiratory failure J96.01 Sepsis A41.9 Septic shock A41.9; R65.21 Breakthrough seizure G40.919 Staphylococcus aureus bacteremia with sepsis A41.01 Encephalopathy acute G93.40 MRSA bacteremia R78.81; B95.62
[2024-09-11 14:41] LABS: Vancomycin Trough 10.6 ug/mL (10-15)
--- NOTE | 2024-09-11 15:06 | PM.CONSULT ---
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 He was admitted to the hospital and noted to have bacteremia. Multiple diagnostic test had been obtained to try to identify the source of bacteremia, unfortunately everything has been negative so far. The patient has a PEG tube in place and it has not been used since June so I have been consulted for possibility of removing the PEG tube to evaluate for this as a source of patient's bacteremia. Medications/Allergies Home Medications ?Medication ?Instructions ?Recorded ?Confirmed ?Last Taken ?Type diltiazem HCl 30 mg tablet 30 mg PO Q8H #90 tabs 05/12/23 09/08/24 09/07/24 20:00 Rx (Cardizem) levetiracetam 1,000 mg tablet 1,000 mg PO BID #60 tabs 05/12/23 09/08/24 09/07/24 20:00 Rx (Keppra) sertraline 100 mg tablet 100 mg peg-tube QAM #30 tabs 05/12/23 09/08/24 09/07/24 Rx baclofen 20 mg tablet 20 mg PO BID 01/13/24 09/08/24 09/07/24 21:00 History acetaminophen 325 mg tablet 650 mg feeding tube Q4H PRN Fever 05/03/24 09/08/24 Unknown History Or Pain levothyroxine 50 mcg tablet 50 mcg feeding tube DAILY 05/03/24 09/08/24 09/07/24 History magnesium hydroxide 400 mg/5 mL 30 ml feeding tube DAILY PRN 05/03/24 09/08/24 Unknown History oral suspension (Milk of Magnesia) Constipation metoprolol tartrate 25 mg tablet 12.5 mg PO DAILY 05/03/24 09/08/24 09/07/24 08:00 History vitamin B complex-zinc 3.6 30 ml PO TID 05/03/24 09/08/24 09/07/24 21:00 History mg-manganese 0.75 mg/15 mL oral liquid (Eldertonic) fluticasone propionate 50 2 inh inhalation BEDTIME 04/08/0309/08/24 09/07/24 History mcg/actuation blister powder for inhalation guaifenesin 100 mg/5 mL oral 300 mg PO Q4H 09/08/24 09/08/24 09/07/24 History liquid (Saida-Tussin) lamotrigine 25 mg tablet 50 mg PO BID 09/08/24 09/08/24 09/07/24 History loratadine 10 mg tablet (Claritin) 10 mg feeding tube DAILY PRN 09/08/24 09/08/24 09/07/24 History Allergic Symptoms risperidone 3 mg tablet (Risperdal) 1.5 mg PO TID 09/08/24 09/08/24 09/07/24 20:00 History Allergies Allergy/AdvReac Type Severity Reaction Status Date / Time No Known Allergies Allergy Verified 09/08/24 05:29 Current Medications Generic Name Dose Route Start Last Admin Trade Name Freq PRN Reason Stop Dose Admin Albuterol/Ipratropium 3 ml 09/08/24 16:00 09/11/24 11:17 Ipratropium-Albuterol 3 Ml Neb INHALATION 3 ml QID.RESPIRATORY BUD Administration Baclofen 20 mg 09/08/24 18:00 09/11/24 08:09 Baclofen 10 Mg Tablet PO 20 mg BID BUD Administration Enoxaparin Sodium 40 mg 09/08/24 14:36 09/10/24 16:02 Enoxaparin 40 Mg/0.4 Ml Syringe SUBCUT 40 mg Q24H BUD Administration Levetiracetam 1,000 mg in 100 mls @ 400 mls/hr 09/08/24 16:00 09/11/24 04:58 Keppra IV Infused Q12H BUD Infusion Piperacillin Sod/Tazobactam 50 mls @ 12.5 mls/hr 09/08/24 15:00 09/11/24 10:18 Sod 3.375 gm/ Sodium Chloride IV Infused Q8H BUD Infusion Sodium Chloride 1,000 mls @ 125 mls/hr 09/09/24 16:15 09/11/24 14:20 Sodium Chloride 0.9% IV 125 mls/hr .Q8H BUD Administration Lamotrigine 50 mg 09/08/24 18:00 09/11/24 08:09 Lamotrigine 25 Mg Tablet PEG-TUBE 50 mg BID BUD Administration Levothyroxine Sodium 50 mcg 09/09/24 09:00 09/11/24 08:09 Levothyroxine 50 Mcg Tablet PEG-TUBE 50 mcg DAILY BUD Administration Pantoprazole Sodium 40 mg 09/08/24 14:36 09/10/24 16:04 Pantoprazole 40 Mg Sdv IVP 40 mg Q24H BUD Administration Risperidone 1.5 mg 09/08/24 15:00 09/11/24 08:09 Risperidone 1 Mg Tablet PO 1.5 mg TID BUD Administration Sertraline HCl 100 mg 09/09/24 06:00 09/11/24 06:15 Sertraline 100 Mg Tablet PEG-TUBE 100 mg QAM BUD Administration PFSH Acute PFSH: Medical History (Updated 09/11/24 @ 13:29 by Mateo Mackenzie MD) Breakthrough seizure Pressure ulcer of right buttock, stage 2 Pressure ulcer of left buttock, stage 3 Sinus tachycardia Major depressive disorder, recurrent, moderate Cardiomyopathy due metabolic or nutritional disease Autism MDD (major depressive disorder) Tinea cruris Rash Self neglect Declining functional status Abnormal urinalysis Volvulus of intestine Partial small bowel obstruction Shock Acute hypokalemia Acute hypotension Altered mental status Intractable epilepsy Bicytopenia Generalized weakness Anemia Hallux valgus (acquired) Chest pain Vitamin B12 deficiency Allergic rhinitis Vitamin D deficiency Urinary incontinence Hypothyroid Lt inguinal pain Intellectual disability Nicotine dependence, chewing tobacco, uncomplicated Muscle cramps Bilateral foot pain Panic disorder Hyperglycemia Chronic GERD Difficulty swallowing Anxiety Hearing loss in left ear Fever Encounter for screening for COVID-19 Mid back pain on left side Hemoptysis Constipation, chronic Benign tumor of pituitary gland Asthma Seasonal allergies Seizures Acute cystitis Gross hematuria Asthma Surgical History History of tonsillectomy and adenoidectomy Hx of hernia repair Family History Father Heart disease Social History Smoking and tobacco/nicotine status: never used tobacco/nicotine Quit status (tobacco/nicotine): has quit using Second hand smoke exposure: No Alcohol intake: never Substance/Drug Use: never Caregiver/support person: Yes Lives independently: No Housing: Half-Way Marital status: Single service: No Current occupational status: disabled Current gender identity: Male Vitals/I&O/Wt Last Vital Signs Temp 98.6 F 09/11/24 11:09 Pulse 105 H 09/11/24 11:20 Resp 16 09/11/24 11:17 BP 110/68 09/11/24 11:09 Pulse Ox 97 09/11/24 11:17 O2 Del Method Room Air 09/11/24 11:17 O2 Flow Rate 3 09/10/24 14:00 09/11/24 09/11/24 09/11/24 06:59 14:59 22:59 Intake Total 1400 / 4429.0909 1300 / 1300 Output Total 1800 / 4200 1550 / 1550 Balance -400 / 229.0909 -250 / -250 Weight last 48 hrs Weight 138 lb Weight 143 lb 4.807 oz Physical Exam GI: OTHER: Abdominal exam is benign, PEG tube is in place, no evidence of discharge or purulence around the stoma site. Urinary Catheter Management: Winslow: Cath Placed During This Visit: yes Reason for Continuing Indwelling Catheter: Other Urinary Catheter Date of Insertion: 09/09/24 Urinary Catheter Time of Insertion: 21:30 Data 09/11/24 01:41 09/11/24 01:41 Micro: Microbiology 09/09/24 16:30 Wound Culture - Preliminary Other Source 09/08/24 06:30 Blood Culture - Preliminary Blood Methicillin Resis Staph Aureus 09/09/24 16:30 Body Fluid Culture - Preliminary Other Source Gram Negative Rods 09/10/24 03:52 Blood Culture - Preliminary Blood NEGATIVE TO DATE 09/10/24 03:48 Blood Culture - Preliminary Blood NEGATIVE TO DATE A&P Assessment and plan (1) Staphylococcus aureus bacteremia with sepsis: Plan After complete history physical examination and review of all available clinical data the following is my assessment. I have personally reviewed imaging of the abdomen, there is no evidence of any concerning features around the PEG tube in the subcutaneous tissue or in the stomach. Physical examination is unremarkable with healthy tissue around the stoma site. The PEG tube has significant gastric residue inside as it has not been flushed in a long time. There is also concern that the patient might not be able to sustain his caloric intake and that he might require enteral nutrition in the short-term. Under the circumstances and with this findings at this moment I we will recommend against removing PEG tube, as there is a very low likelihood of this being the source of infection. In the case of the tube being nonfunctional due to impact of gastric contents on the lumen I will be happy to replace that with the new PEG tube. All other management per primary PDMP PDMP Reviewed: Not Reviewed Coding Level of Care Code Acute Code for Chg Fwd Diagnoses Staphylococcus aureus bacteremia with sepsis A41.01
[2024-09-11] MEDS: pantoprazole 40 mg SDV IVP (15:13)
[2024-09-11] MEDS: vancomycin 1,250 MG/250 ML PIGGYBACK 166.67 MG IV ×2 (15:13→22:31)
[2024-09-11] MEDS: enoxaparin 40 mg/0.4 mL Syringe SUBCUT (15:28)
[2024-09-12] VITALS (12 sets, daily range): BP systolic 87–122; BP diastolic 52–76; PULSE 85–116; RESP 11–19; TEMP 36.4–37.3; O2SAT 94–99; BMI 22.1
[2024-09-12 03:51] LABS: Basophils % 0.6 %; Eosinophils # 0.3 10^3/uL (0.0-0.8); Eosinophils % 4.6 %; Hematocrit 38.2 % (37-53); Lymphocytes # 0.5 10^3/uL (0.8-4.8); Lymphocytes % 9.6 %; Mean Corpuscular HGB Conc 29.8 g/dL (30-55); Mean Corpuscular Hemoglobin 25.7 pg (27-33); Mean Platelet Volume 9.3 fL (7.4-10.4); Monocytes # 0.6 10^3/uL (0.2-0.9); Monocytes % 10.3 %; Neutrophils # 4.05 10^3/uL (1.8-7.7); Neutrophils % 74.7 %; Nucleated Red Blood Cells % 0 %; Platelet Count 314 10^3/cmm (157-399); Red Blood Count 4.44 10^6/uL (3.85-5.65); White Blood Count 5.42 10^3/uL (3.29-11.43)
[2024-09-12] MEDS: levETIRAcetam 1,000 MG/100 ML PREMIX 400 MG IV ×2 (03:58→17:48)
[2024-09-12 04:13] LABS: C Reactive Protein 153.3 mg/L (0.0-4.9)
[2024-09-12 04:14] LABS: Alanine Aminotransferase < 5 U/L (0-41); Albumin Level 3.7 g/dL (3.5-5.2); Alkaline Phosphatase 79 U/L (40-130); Anion Gap 23.8 (5-19); Aspartate Amino Transferase 8 U/L (0-40); Blood Urea Nitrogen 2 mg/dL (6-20); Calcium 9.2 mg/dL (8.5-10.5); Carbon Dioxide 14 mmol/L (22-29); Chloride 106 mmol/L (98-107); Creatinine Clr Calc Pharmacy 187.3983; Globulin 2.8 g/dL (1.3-4.6); Glucose 65 mg/dL (65-115); Magnesium 1.6 mg/dL (1.7-2.3); Osmolality Calculated 284 mOsm/kg (285-295); Phosphorus 3.3 mg/dL (2.5-4.5); Potassium 3.8 mmol/L (3.5-5.1); Sodium 140 mmol/L (136-145); Total Bilirubin 0.4 mg/dL (0.15-1.2); Total Protein 6.5 g/dL (6.6-8.7)
[2024-09-12 04:18] LABS: Procalcitonin 0.04 ng/mL (0-0.5)
[2024-09-12] MEDS: sodium chloride 0.9% 1,000 ML 125 ML IV (06:06)
[2024-09-12] MEDS: sertraline 100 mg Tablet PEG-TUBE (06:06)
[2024-09-12] MEDS: piperacillin-tazobactam 3.375 GM in sodium chloride 0.9% (plus) 50 ML IV ×3 (06:06→23:20)
[2024-09-12] MEDS: vancomycin 1,250 MG/250 ML PIGGYBACK 166.67 MG IV ×3 (06:07→22:13)
[2024-09-12] MEDS: ipratropium-albuterol 3 mL Neb INHALATION ×4 (08:35→20:53)
[2024-09-12] MEDS: levothyroxine 50 mcg Tablet PEG-TUBE (09:31)
[2024-09-12] MEDS: baclofen 10 mg Tablet 20 MG PO ×2 (09:31→17:47)
[2024-09-12] MEDS: lamoTRIgine 25 mg Tablet 50 MG PEG-TUBE ×2 (09:31→17:47)
[2024-09-12] MEDS: risperiDONE 1 mg Tablet 1.5 MG PO ×3 (09:31→20:20)
[2024-09-12] MEDS: sodium bicarbonate 50 MEQ in sodium chloride 0.45% 1,000 ML 125 MEQ IV ×2 (09:38→17:48)
[2024-09-12] MEDS: pantoprazole 40 mg SDV IVP (14:08)
[2024-09-12] MEDS: enoxaparin 40 mg/0.4 mL Syringe SUBCUT (14:09)
[2024-09-12 14:13] LABS: Anion Gap 23.5 (5-19); Blood Urea Nitrogen 2 mg/dL (6-20); Calcium 9.3 mg/dL (8.5-10.5); Carbon Dioxide 14 mmol/L (22-29); Chloride 104 mmol/L (98-107); Creatinine Clr Calc Pharmacy 136.3123; Glucose 68 mg/dL (65-115); Osmolality Calculated 280 mOsm/kg (285-295); Potassium 3.5 mmol/L (3.5-5.1); Sodium 138 mmol/L (136-145)
[2024-09-12 14:26] LABS: Vancomycin Trough 18.8 ug/mL (10-15)
--- NOTE | 2024-09-12 15:15 | P.PN_ITS ---
Subjective 2 Subjective: - Patient was seen this morning, he is a lert, awake, but does not follow commands, he is able to track me around the room, he has no pain complaints, does not appear to be in pain, his blood pressures are soft - I spoke to alf, Hussein is a picky eater, with his autism it is difficult for him to feed at times, he typically eats cheeseburgers, grilled cheese sandwiches, yesterday he did eat ice cream, but would not eat anything else - They advised me that typically he does not eat breakfast so they give him 1 carton of Jevity 1.5 240 mLs in the morning - And typically with meals if his consum ption of a meal is less than 1.5 they will give him 1 carton of Jevity 1.5 240 mL - They also tell me that he is to being for his PEG tube is looking block because he tends to chew tobacco, instead of spitting it out he tends to swallow it Vitals/I&O/Wt Last Vital Signs Temp 97.5 F L 09/12/24 13:00 Pulse 98 09/12/24 13:00 Resp 19 H 09/12/24 13:00 BP 99/62 09/12/24 13:00 Pulse Ox 99 09/12/24 13:00 O2 Del Method Room Air 09/12/24 13:00 O2 Flow Rate 3 09/10/24 14:00 09/12/24 09/12/24 09/12/24 06:59 14:59 22:59 Intake Total 1350 / 4050 672.083 / 672.083 Output Total 900 / 2450 1600 / 1600 Balance 450 / 1600 -927.917 / -927.917 Weight last 48 hrs Weight 56.841 kg Weight 43.046 kg Weight 62.596 kg Physical Exam 2 Const: COMMON NORMALS: no acute distress Resp: COMMON NORMALS: normal respiratory effort, No retractions, No use of accessory muscles and clear to auscultation bilaterally AUSCULTATION: clear to auscultation bilaterally Cardio: COMMON NORMALS: regular rate, regular rhythm, S1 normal heart sound present and S2 normal heart sound present RATE: regular rate RHYTHM: r egular rhythm HEART SOUNDS: S1 normal heart sound present and S2 normal heart sound present GI: COMMON NORMALS: Normal to inspection, nondistended, normoactive bowel sounds present and non-tender OTHER: PEG tube site looks clean and dry, Extremity: COMMON NORMALS: no pedal edema Urinary Catheter Management: Winslow: Cath Placed During This Visit: yes Reason for Continuing Indwelling Catheter: Other Urinary Catheter Date of Insertion: 09/09/24 Urinary Catheter Time of Insertion: 21:30 Data 09/12/24 02:58 09/12/24 13:47 Micro: Microbiology 09/09/24 16:30 Body Fluid Culture - Final Other Source Enterobacter cloacae Stenotrophomonas maltophilia 09/09/24 16:30 Wound Culture - Preliminary Other Source 09/08/24 06:30 Blood Culture - Preliminary Blood Methicillin Resis Staph Aureus A&P Assessment and plan (1) Bilateral pneumonia: (2) Aspiration pneumonia: (3) Acute hypoxic respiratory failure: (4) Sepsis: (5) Septic shock: (6) Breakthrough seizure: (7) Staphylococcus aureus bacteremia with sepsis: (8) Encephalopathy acute: (9) MRSA bacteremia: Plan MRSA bacteremia with sepsis -CT scan as below, showed a possibility of septic emboli due to discrete pulm nodules scattered throughout both lungs -Versus MRSA pneumonia -Source? - Concern for endocarditis, transesophageal echocardiogram did not show any significant evidence of valvular vegetations -No other significant skin breaks, or DTI's -Concern for MRSA pneumonia, although he is on room air -No other artificial hardware -Patient has a PEG tube,, although site looks clean and dry, cultures are growing stenotrophomonas, Enterobacter - CT scan of the spine did not show any evidence of discitis or vertebral osteomyelitis Plan - Continue vancomycin -Follow repeat blood cultures - Follow cultures of PEG tube site` - Monitor closely Poor feeding - Patient has autism, and is very selective in what he eats, and who he will eat for - I spoke to alf, Hussein is a picky eater, with his autism it is difficult for him to feed at times, he typically eats cheeseburgers, grilled cheese sandwiches, yesterday he did eat ice cream, but would not eat anything else - They advised me that typically he does not eat breakfast so they give him 1 carton of Jevity 1.5 240 mLs in the morning - And typically with meals if his consumption of a meal is less than 1.5 they will give him 1 carton of Jevity 1.5 240 mL - They also tell me that he is to being for his PEG tube is looking block because he tends to chew tobacco, instead of spitting it out he tends to swallow it ? Here it is difficult for him to feed orally, -Will put him on dysphagia level 6 diet, thin liquids -Instructions as above Jevity 1.5 240 mL scheduled at breakfast, and as needed with meals depending on his consumption Acute encephalopathy -Has baseline developmental disorder -CT head -Neurochecks Acute hypoxic respiratory failure -Secondary to bilateral pneumonia -Concerns for septic emboli as above? -Likely component of aspiration, with breakthrough seizures - Continue IV antibiotics CT/CT chest w con* [id number] IMPRESSION: 1. Diffuse bilateral reticular nodular opacifications most likely due to pneumonia. 2. Additional superimposed more discrete pulmonary nodules scattered throughout both lungs. The largest 8 mm at the LEFT lung base. These nodules were not present in 2022. Differential includes infection, septic emboli or metastatic disease. 3. Mediastinal and hilar lymphadenopathy. Mildly enlarged LEFT axillary lymph node. Neoplastic versus infectious /reactive. Plan -Monitor respiratory status closely in ICU -Low threshold for intubation -DuoNeb -Vancomycin -Zosyn -Blood cultures -Sputum cultures -Monitor respiratory status closely Sepsis, with septic shock, resolved -Status post sepsis bolus -MAP is around 65 -Will consider Levophed based on clinical progress -Continue IV fluids -Antibiotics as above Breakthrough seizures -Keppra 1000 mg IV every 12 hours -Continue Lamictal -Continue baclofen Concern for neck mass Partially visualized LEFT neck mass measuring 1.8 x 2.4 cm just deep to the sternocleidomastoid muscle. This may be a lymph node. Not present on the prior study from 02/19/[address]22. Neck CT CT/CT neck w con* [id number] IMPRESSION: 1. No neck mass or cervical adenopathy. The prominent soft tissue along the LEFT neck seen on the chest CT was probably due to rotation of the patient. 2. Normal larynx. 3. LEFT maxillary sinusitis. Proctitis -Will consider bowel regimen based on clinical progress Bilateral hip osteonecrosis Will have dietary see patient, speech therapy see patient, keep n.p.o. Full code Lovenox for DVT prophylaxis Plan for today continue IV antibiotics, encourage p.o. intake PDMP PDMP Reviewed: Not Reviewed Attestations 2 Medical Necessity Statement*: Patient requires hospitalization for MRSA bacteremia requiring IV antibiotics Diagnoses Bilateral pneumonia J18.9 Aspiration pneumonia J69.0 Acute hypoxic respiratory failure J96.01 Sepsis A41.9 Septic shock A41.9; R65.21 Breakthrough seizure G40.919 Staphylococcus aureus bacteremia with sepsis A41.01 Encephalopathy acute G93.40 MRSA bacteremia R78.81; B95.62
[2024-09-12 15:20] LABS: Lamotrigine (Lamictal) Level 0.8 mcg/mL (2.5-15.0)
[2024-09-12] MEDS: bisacodyl 5 mg Tablet 10 MG PO (17:47)
[2024-09-12] MEDS: polyethylene glycol 3350 Pkt 17 gm PEG-TUBE (17:47)
[2024-09-13] VITALS (12 sets, daily range): BP systolic 89–114; BP diastolic 52–72; PULSE 89–128; RESP 16–19; TEMP 36.7–37.3; O2SAT 91–96; BMI 22.1
[2024-09-13] MEDS: sodium bicarbonate 50 MEQ in sodium chloride 0.45% 1,000 ML 125 MEQ IV ×3 (01:46→19:39)
[2024-09-13] MEDS: levETIRAcetam 1,000 MG/100 ML PREMIX 400 MG IV (03:13)
[2024-09-13 06:04] LABS: Basophils % 0.8 %; Eosinophils # 0.3 10^3/uL (0.0-0.8); Eosinophils % 5.9 %; Hematocrit 35.6 % (37-53); Lymphocytes # 0.5 10^3/uL (0.8-4.8); Mean Corpuscular HGB Conc 30.9 g/dL (30-55); Mean Corpuscular Hemoglobin 25.8 pg (27-33); Mean Corpuscular Volume 83.4 fl (82-101); Mean Platelet Volume 9.3 fL (7.4-10.4); Monocytes # 0.4 10^3/uL (0.2-0.9); Monocytes % 7.3 %; Neutrophils # 3.91 10^3/uL (1.8-7.7); Neutrophils % 76.8 %; Nucleated Red Blood Cells % 0 %; Platelet Count 309 10^3/cmm (157-399); Red Blood Count 4.27 10^6/uL (3.85-5.65); Red Cell Distribution Width 15.1 % (12.1-15.1); White Blood Count 5.09 10^3/uL (3.29-11.43)
[2024-09-13 06:14] LABS: Vancomycin Trough 14.8 ug/mL (10-15)
[2024-09-13 06:15] LABS: Alanine Aminotransferase 6 U/L (0-41); Albumin Level 3.3 g/dL (3.5-5.2); Alkaline Phosphatase 69 U/L (40-130); Aspartate Amino Transferase 8 U/L (0-40); Blood Urea Nitrogen 1 mg/dL (6-20); Calcium 8.8 mg/dL (8.5-10.5); Carbon Dioxide 19 mmol/L (22-29); Chloride 104 mmol/L (98-107); Creatinine Clr Calc Pharmacy 224.9109; Globulin 3.1 g/dL (1.3-4.6); Glucose 84 mg/dL (65-115); Magnesium 1.4 mg/dL (1.7-2.3); Osmolality Calculated 285 mOsm/kg (285-295); Phosphorus 2.5 mg/dL (2.5-4.5); Sodium 140 mmol/L (136-145); Total Bilirubin 0.3 mg/dL (0.15-1.2); Total Protein 6.4 g/dL (6.6-8.7)
[2024-09-13] MEDS: vancomycin 1,250 MG/250 ML PIGGYBACK 166.67 MG IV ×3 (06:16→23:02)
[2024-09-13] MEDS: piperacillin-tazobactam 3.375 GM in sodium chloride 0.9% (plus) 50 ML IV ×2 (06:17→14:22)
[2024-09-13] MEDS: sertraline 100 mg Tablet PEG-TUBE (06:21)
[2024-09-13] MEDS: risperiDONE 1 mg Tablet 1.5 MG PO ×3 (09:02→21:44)
[2024-09-13] MEDS: baclofen 10 mg Tablet 20 MG PO ×2 (09:03→17:55)
[2024-09-13] MEDS: potassium chloride oral liq 20 mEq/15 mL UDC 40 MEQ PEG-TUBE (09:03)
[2024-09-13] MEDS: bisacodyl 5 mg Tablet 10 MG PO (09:03)
[2024-09-13] MEDS: magnesium sulfate premix 1 GM/100 ML PIGGYBACK IV (09:03)
[2024-09-13] MEDS: polyethylene glycol 3350 Pkt 17 gm PEG-TUBE (09:03)
[2024-09-13] MEDS: lamoTRIgine 25 mg Tablet 50 MG PEG-TUBE ×2 (09:03→17:55)
[2024-09-13] MEDS: levothyroxine 50 mcg Tablet PEG-TUBE (09:03)
--- NOTE | 2024-09-13 09:29 | PC.NURSE ---
feeding 60ml fwf then 240 ml of jevity 1.5 then another 60ml fwf. no residual.
--- NOTE | 2024-09-13 10:01 | PM.MISC ---
Miscellaneous Note Purpose of Documentation: Update regarding patient care. Note: I have been requested by medical team to exchange PEG tube for a new 1, to ensure that the previous wound is not the source of his current infection. I have agreed with this plan, unfortunately I have not been able to get a hold of the guards for the patient. I have called the provided number numerous times yesterday and today without success, I also called the intermediate where the patient currently resides and they were able to confirm that the mother of the patient is who is making medical decisions and gave me the number for her which she is not currently working. Since the change of the PEG tube is not emergent at this time I will continue to attempt contact with regard of the patient before proceeding with any invasive procedure
--- NOTE | 2024-09-13 11:06 | PC.SLP ---
Attempted to see patient today; patient refused. Offered a grilled cheese or cheeseburger, and a coke with ice. He did not verbalize or respond today. He kept shaking his head no and looked at TV screen the whole time.
[2024-09-13] MEDS: ipratropium-albuterol 3 mL Neb INHALATION ×3 (12:02→20:28)
--- NOTE | 2024-09-13 12:05 | PC.NUTR ---
If Pt refusing meals or eating <50% of meal, recommend bolus feeding of Jevity 1.5 400mls 3x/day with FWF 60mls before and after. If Pt unable to tolerate 400mls at one time, recommend 240mls 5x/day with FWF before and after bolus feeding to approximate regimen at facility.
--- NOTE | 2024-09-13 13:03 | XR_ITS ---
WS: [id number] Exam: XR chest 1V portable [id number] Date/Time of Exam: 09/13/2024 1:45 PM Reason For Exam: Post PICC insertion Comparison 10-01. A series of 2 AP portable chest radiographs are submitted for evaluation. The first exam is obtained at 1:47 ppm. and shows a left-sided PICC line in place extending into the RIGHT atrium. The lungs are clear. Normal cardiomediastinal silhouette. Unremarkable bony elements. There appears to be a gastrotomy feeding tube in the stomach. Second chest radiograph is obtained at 1:51 ppm. after retracting the LEFT PICC line. Position of the line appears to be at the cavoatrial junction in good position. The chest is otherwise normal. XR/XR chest 1V portable [id number] IMPRESSION: 1. Final chest radiograph shows a PICC line ending at the cavoatrial junction i n satisfactory position. The chest is otherwise negative.
[2024-09-13] MEDS: enoxaparin 40 mg/0.4 mL Syringe SUBCUT (14:21)
[2024-09-13] MEDS: pantoprazole 40 mg SDV IVP (14:22)
--- NOTE | 2024-09-13 14:23 | PICC.NOTE ---
Single lumen PICC placed to left basilic vein. Referred to vascular access nurse for PICC placement due to need for IV antibiotics. Unable to reach pt guardian by phone to discuss risks and benefits. Verbal consent given per Dr. Mackenzie for PICC placment. Left arm assessed with left basilic vein measuring 4.0 mm, straight, and apparent best choice for placement. Using sterile technique and MST, left basilic vein accessed x 1 stick. Mid-arm circumference measured 10 cm from left AC 28 cm. Trimmed cath 38 cm with 0 cm external length noted. CXR shows tip in cavoatrial junction, in good position for use per radiologist. Line secured with stat-lock. Insertion site covered with Biopatch and TSM. Report given to bedside nurse, HARJINDER Banks.
--- NOTE | 2024-09-13 15:42 | P.PN_ITS ---
Subjective 2 Subjective: Patient was seen this morning, he is alert, awake, according to nursing staff he did not have much of a dinner last night,General surgery has tried to reach out to patient's guardian Felicia to make decisions about exchange of for PEG tube however she has not called back, I tried multiple times throughout the day, however was not able to get through to her, Vitals/I&O/Wt Last Vital Signs Temp 98.0 F 09/13/24 11:37 Pulse 108 H 09/13/24 15:39 Resp 16 09/13/24 15:29 BP 97/62 09/13/24 11:37 Pulse Ox 96 09/13/24 15:29 O2 Del Method Room Air 09/13/24 15:29 O2 Flow Rate 3 09/10/24 14:00 09/13/24 09/13/24 09/13/24 06:59 14:59 22:59 Intake Total 1395.833 / 3488.749 1450 / 1450 Output Total 1550 / 4750 Balance -154.167 / -8125.960 1858 / 1450 Weight last 48 hrs Weight 56.699 kg Weight 56.841 kg Weight 43.046 kg Physical Exam 2 Const: COMMON NORMALS: no acute distress Neck/C-Spine: COMMON NORMALS: no JVD Resp: COMMON NORMALS: normal respiratory effort, No retractions, No use of accessory muscles and clear to auscultation bilaterally AUSCULTATION: clear to auscultation bilaterally Cardio: COMMON NORMALS: no JVD, regular rate, regular rhythm, S1 normal heart sound present and S2 normal heart sound present RATE: regular rate RHYTHM: regular rhythm HEART SOUNDS: S1 normal heart sound present and S2 normal heart sound present GI: COMMON NORMALS: Normal to inspection, nondistended, normoactive bowel sounds present and non-tender Extremity: COMMON NORMALS: no pedal edema Psych: COMMON NORMALS: mental status grossly normal Urinary Catheter Management: Winslow: Cath Placed During This Visit: yes Reason for Continuing Indwelling Catheter: Other Urinary Catheter Date of Insertion: 09/09/24 Urinary Catheter Time of Insertion: 21:30 Data 09/13/24 05:45 09/13/24 05:45 Micro: Microbiology 09/09/24 16:30 Wound Culture - Final Other Source Methicillin Resis Staph Aureus 09/08/24 05:37 Blood Culture - Final Blood NO GROWTH AFTER 5 DAYS 09/09/24 16:30 Body Fluid Culture - Final Other Source Enterobacter cloacae Stenotrophomonas maltophilia A&P Assessment and plan (1) Bilateral pneumonia: (2) Aspiration pneumonia: (3) Acute hypoxic respiratory failure: (4) Sepsis: (5) Septic shock: (6) Breakthrough seizure: (7) Staphylococcus aureus bacteremia with sepsis: (8) Encephalopathy acute: (9) MRSA bacteremia: Plan MRSA bacteremia with sepsis -Source, likely patient's PEG tube, with cultures growing MRSA -CT scan as below, showed a possibility of septic emboli due to discrete pulm nodules scattered throughout both lungs -Versus MRSA pneumonia -Source? - Concern for endocarditis, transesophageal echocardiogram did not show any significant evidence of valvular vegetations -No other significant skin breaks, or DTI's -Concern for MRSA pneumonia, although he is on room air -No other artificial hardware -Patient has a PEG tube, although site looks clean and dry, cultures are growing stenotrophomonas, Enterobacter and MRSA -Concerns for PEG tube being source of infection, which patient is dependent on, general surgery consulted for exchange of PEG tube - CT scan of the spine did not show any evidence of discitis or vertebral osteomyelitis Plan -General surgery is trying to reach out to family, patient's guardian to exchange a PEG tube - Continue vancomycin -Follow repeat blood cultures - Follow cultures of PEG tube site` - Monitor closely Increased anion gap metabolic acidosis, on a bicarb drip Poor feeding - Patient has autism, and is very selective in what he eats, and who he will eat for - I spoke to intermediate, Hussein is a picky eater, with his autism it is difficult for him to feed at times, he typically eats cheeseburgers, grilled cheese sandwiches, yesterday he did eat ice cream, but would not eat anything else - They advised me that typically he does not eat breakfast so they give him 1 carton of Jevity 1.5 240 mLs in the morning - And typically with meals if his consumption of a meal is less than 1.5 they will give him 1 carton of Jevity 1.5 240 mL ? Here it is difficult for him to feed orally, -Will put him on dysphagia level 6 diet, thin liquids -Instructions as above Jevity 1.5 240 mL 5 times daily here Acute encephalopathy -Has baseline developmental disorder -CT head -Neurochecks Acute hypoxic respiratory failure -Secondary to bilateral pneumonia -Concerns for septic emboli as above? -Likely component of aspiration, with breakthrough seizures - Continue IV antibiotics CT/CT chest w con* [id number] IMPRESSION: 1. Diffuse bilateral reticular nodular opacifications most likely due to pneumonia. 2. Additional superimposed more discrete pulmonary nodules scattered throughout both lungs. The largest 8 mm at the LEFT lung base. These nodules were not present in 2022. Differential includes infection, septic emboli or metastatic disease. 3. Mediastinal and hilar lymphadenopathy. Mildly enlarged LEFT axillary lymph node. Neoplastic versus infectious /reactive. Plan -Monitor respiratory status closely in ICU -Low threshold for intubation -DuoNeb -Vancomycin -Zosyn -Blood cultures -Sputum cultures -Monitor respiratory status closely Sepsis, with septic shock, resolved -Status post sepsis bolus -MAP is around 65 -Will consider Levophed based on clinical progress -Continue IV fluids -Antibiotics as above Breakthrough seizures -Keppra 1000 mg po every 12 hours -Continue Lamictal -Continue baclofen Concern for neck mass Partially visualized LEFT neck mass measuring 1.8 x 2.4 cm just deep to the sternocleidomastoid muscle. This may be a lymph node. Not present on the prior study from 02/19/[address]22. Neck CT CT/CT neck w con* [id number] IMPRESSION: 1. No neck mass or cervical adenopathy. The prominent soft tissue along the LEFT neck seen on the chest CT was probably due to rotation of the patient. 2. Normal larynx. 3. LEFT maxillary sinusitis. Proctitis -Will consider bowel regimen based on clinical progress Bilateral hip osteonecrosis Will have dietary see patient, speech therapy see patient Full code Lovenox for DVT prophylaxis Plan for today continue IV antibiotics, encourage p.o. intake, peg tube ffeding PDMP PDMP Reviewed: Not Reviewed Attestations 2 Medical Necessity Statement*: Patient requires hospitalization for MRSA bacteremia, concerns for PEG tube infection, requiring change out of peg tube Diagnoses Bilateral pneumonia J18.9 Aspiration pneumonia J69.0 Acute hypoxic respiratory failure J96.01 Sepsis A41.9 Septic shock A41.9; R65.21 Breakthrough seizure G40.919 Staphylococcus aureus bacteremia with sepsis A41.01 Encephalopathy acute G93.40 MRSA bacteremia R78.81; B95.62
[2024-09-13] MEDS: levETIRAcetam 500 MG/5 ML UDC 1000 MG PO (17:50)
--- NOTE | 2024-09-13 18:53 | PC.NURSE ---
Verbal permission given at this time from patient's mother -Felicia to surgically change patient's PEG tube. She spoke to this nurse and Lizy RN. Explained to patient's mother that patient received a PICC line today so that he can terminologist antibiotics for is MRSA infection. Patient mother verbalized understaning
[2024-09-14] VITALS (8 sets, daily range): BP systolic 95–124; BP diastolic 56–77; PULSE 91–109; RESP 12–20; TEMP 36.6–36.9; O2SAT 92–94; BMI 22.1
[2024-09-14] MEDS: sodium bicarbonate 50 MEQ in sodium chloride 0.45% 1,000 ML 125 MEQ IV (04:28)
[2024-09-14] MEDS: sertraline 100 mg Tablet PEG-TUBE (05:20)
[2024-09-14] MEDS: levETIRAcetam 500 MG/5 ML UDC 1000 MG PO (05:20)
[2024-09-14 05:52] LABS: Basophils % 0.6 %; Eosinophils # 0.2 10^3/uL (0.0-0.8); Eosinophils % 4.1 %; Lymphocytes # 0.5 10^3/uL (0.8-4.8); Lymphocytes % 10.5 %; Mean Corpuscular HGB Conc 30.8 g/dL (30-55); Mean Corpuscular Hemoglobin 25.8 pg (27-33); Mean Corpuscular Volume 83.7 fl (82-101); Mean Platelet Volume 9.9 fL (7.4-10.4); Monocytes # 0.5 10^3/uL (0.2-0.9); Neutrophils # 3.86 10^3/uL (1.8-7.7); Neutrophils % 75.4 %; Nucleated Red Blood Cells % 0 %; Platelet Count 314 10^3/cmm (157-399); Red Cell Distribution Width 15.3 % (12.1-15.1); White Blood Count 5.12 10^3/uL (3.29-11.43)
[2024-09-14] MEDS: vancomycin 1,250 MG/250 ML PIGGYBACK 166.67 MG IV (06:01)
[2024-09-14 06:11] LABS: Alanine Aminotransferase < 5 U/L (0-41); Albumin Level 3.3 g/dL (3.5-5.2); Alkaline Phosphatase 65 U/L (40-130); Anion Gap 13.8 (5-19); Aspartate Amino Transferase 8 U/L (0-40); Blood Urea Nitrogen 3 mg/dL (6-20); Calcium 8.6 mg/dL (8.5-10.5); Carbon Dioxide 27 mmol/L (22-29); Chloride 105 mmol/L (98-107); Creatinine Clr Calc Pharmacy 449.8218; Globulin 2.9 g/dL (1.3-4.6); Glomerular Filtration Rate 578.6 mL/min (90-130); Glucose 96 mg/dL (65-115); Magnesium 1.6 mg/dL (1.7-2.3); Osmolality Calculated 292 mOsm/kg (285-295); Phosphorus 1.8 mg/dL (2.5-4.5); Sodium 143 mmol/L (136-145); Total Bilirubin 0.2 mg/dL (0.15-1.2); Total Protein 6.2 g/dL (6.6-8.7)
[2024-09-14 06:30] LABS: Potassium 2.8 mmol/L (3.5-5.1)
[2024-09-14] MEDS: lidocaine 1% 5 ML in potassium chloride premix 100 ML 26.25 ML IV (07:14)
--- NOTE | 2024-09-14 07:15 | PC.NURSE ---
This nurse added 5ml lidocain 1% to potassium for [employer]
[2024-09-14] MEDS: ipratropium-albuterol 3 mL Neb INHALATION (08:12)
[2024-09-14] MEDS: baclofen 10 mg Tablet 20 MG PO (08:58)
[2024-09-14] MEDS: lamoTRIgine 25 mg Tablet 50 MG PEG-TUBE (08:58)
[2024-09-14] MEDS: potassium chloride oral liq 20 mEq/15 mL UDC 40 MEQ PEG-TUBE (08:58)
[2024-09-14] MEDS: phosphorus 250 mg Tablet PEG-TUBE (08:59)
[2024-09-14] MEDS: levothyroxine 50 mcg Tablet PEG-TUBE (08:59)
[2024-09-14] MEDS: risperiDONE 1 mg Tablet 1.5 MG PO (08:59)
--- NOTE | 2024-09-14 09:23 | PC.NURSE ---
Patient had no residual this am. Flushed 60 mls with medication. Gave 400ml Jevity 1.5, flushed with 60 ml after. Patient tolerated well.
--- NOTE | 2024-09-14 10:50 | PC.NUTR ---
Hussein is refusing meals. Recommend bolus feeds with Jevity 1.5, 400mls, with FWF 60mls before and after per following regimen: 8-9am: 400mls 2:30-3:30pm: 400mls 8-9pm: 400mls If residual >200mls, recommend more frequent feedings: Jevity 1.5, 240mls 5x/day, w/FWF 60mls before and after, at: 8am/11am/2pm/5pm/8pm to meet Pt's estimated protein/kcal needs.
--- NOTE | 2024-09-14 10:52 | PM.DCS ---
Discharge Providers Date of Admission: 09/08/24 13:48 Date of Discharge: September 14, 2024 Attending Provider at Admission: Mateo Mackenzie MD Attending Provider at Discharge: Mateo Mackenzie MD Primary Care Provider: Chi Tavera MD Diagnoses at Discharge Discharge Diagnosis (1) Bilateral pneumonia: Status: Acute (2) Aspiration pneumonia: Status: Acute (3) Acute hypoxic respiratory failure: Status: Acute (4) Sepsis: Status: Resolved (5) Septic shock: Status: Acute (6) Breakthrough seizure: Status: Acute (7) Staphylococcus aureus bacteremia with sepsis: Status: Acute (8) Encephalopathy acute: Status: Resolved (9) MRSA bacteremia: Status: Acute Reason for Visit Reason for Visit: seizures Hospital Course Hospital Course Hussein Man is a 24 year old male with a past medical history of autism, cardiomyopathy, declining functional status, seizure disorder, hypothyroidism, GERD, benign pituitary tumor, who presents to [facility] due to seizures. Currently patient is postictal, he does awaken, but does not follow commands, Peoples equal, reactive to light, he does withdraw from pain, maintaining his airway, his GCS score 12 currently on 3 L, blood pressures 90s over 60s, according to ER provider patient was brought into the emergency room by ambulance due to recurrence of solid seizures overnight, lasting up to 10 minutes, concerns for hypoxia, in the emergency room he has received sepsis bolus, Zosyn, Keppra hospitalist team was called for admission. Patient was admitted to [facility] for breakthrough seizures, was monitored as inpatient, will be discharged on Keppra thousand twice daily, continue home Lamictal, baclofen, Risperdal Patient's hospitalization was complicated with MRSA bacteremia, with sepsis, required IV antibiotics, source is likely patient's PEG tube, blood cultures growing MRSA, cultures around PEG tube growing MRSA. Repeat blood cultures so far have been had no growth, no fevers, patient has been clinically improving General Surgery was consulted for PEG tube exchange. Patient's status post PEG tube exchange, tolerated procedure well, will be discharged on 6 weeks of IV vancomycin, PICC line placed, with close follow-up with primary care provider as outpatient Patient's hospitalization was complicated by poor feeding, Poor feeding - Patient has autism, and is very selective in what he eats, and who he will eat for - I spoke to snf, Hussein is a picky eater, with his autism it is difficult for him to feed at times, he typically eats cheeseburgers, grilled cheese sandwiches, yesterday he did eat ice cream, but would not eat anything else - They advised me that typically he does not eat breakfast so they give him 1 carton of Jevity 1.5 ? Here it is difficult for him to feed orally, -Will put him on dysphagia level 6 diet, thin liquids, did not feed well - Will be discharged with PEG tube in place, with instructions as below - PEG tube feeding Jevity 1.5 400 ml at (0599-7913), 400 ml at (0612-2940), 400 ml at (2091-0489), please notify physician if residuals greater than 200 mL, free water flushes 60 mL before and after feeding Concerns for MRSA pneumonia, CT chest showing diffuse bilateral reticulonodular opacities, he was managed on IV antibiotics, IV vancomycin, overall clinically improved, remained on room air, afebrile discharged on IV vancomycin as above Patient was found to have pulmonary nodules, also mediastinal hilar lymphadenopathy, likely secondary to MRSA bacteremia. Nonetheless patient should follow-up with primary care provider as outpatient, consideration of repeat CAT scan of the chest within 6 weeks, if patient has persistent lymphadenopathy he will need to follow-up with oncology as outpatient for consideration of PET scan Patient also has chronic bilateral hip osteonecrosis, follow-up with orthopedic service as outpatient Physical Exam Const: COMMON NORMALS: no acute distress ORIENTATION/CONSCIOUSNESS: Yes awake; not oriented to person, not oriented to place and not oriented to time Resp: COMMON NORMALS: normal respiratory effort, No retractions, No use of accessory muscles and clear to auscultation bilaterally AUSCULTATION: clear to auscultation bilaterally Cardio: COMMON NORMALS: regular rate, regular rhythm, S1 normal heart sound present and S2 normal heart sound present RATE: regular rate RHYTHM: regular rhythm HEART SOUNDS: S1 normal heart sound present and S2 normal heart sound present GI: COMMON NORMALS: Normal to inspection, nondistended, normoactive bowel sounds present and non-tender OTHER: PEG tube in place, site looks clean and dry Extremity: COMMON NORMALS: no pedal edema Neuro: SENSORIUM/ORIENTATION: No oriented to person, No oriented to place and No oriented to time Psych: COMMON NORMALS: mental status grossly normal Urinary Catheter Management: Winslow: Cath Placed During This Visit: yes Reason for Continuing Indwelling Catheter: Other Urinary Catheter Date of Insertion: 09/09/24 Urinary Catheter Time of Insertion: 21:30 Discharge Data Studies Completed and Pending Completed Studies During Hospitalization Category Date Time Status CT abdomen pelvis w con* [id number] Stat Cat Scan 09/08/24 10:[address] cervical spin wo con* [id number] Routine Cat Scan 09/11/24 12:[address] chest w con* [id number] Stat Cat Scan 09/08/24 07:[address] head wo con* [id number] Routine Cat Scan 09/10/24 08:[address] lumbar spine wo con* [id number] Routine Cat Scan 09/11/24 12:[address] neck w con* [id number] Stat Cat Scan 09/08/24 10:[address] thoracic spin wo con* [id number] Routine Cat Scan 09/11/24 12:22 Completed CXRP [XR chest 1V portable [id number]] Routine Exams 09/13/24 13:03 Completed XR chest 1V portable [id number] Stat Exams 09/08/24 05:26 Completed CV. echo complete* [id number] Routine Ultrasound 09/10/24 09:35 Completed CV. echo transesophageal [id number] Routine Ultrasound 09/10/24 16:10 Completed Pending at discharge Category Date Time Status Blood Culture Stat Lab 09/08/24 05:37 Results Blood Culture Stat Lab 09/10/24 03:52 Results KEPPRA [Levetiracetam Immunoassy] Routine Lab 09/08/24 13:04 Received Sputum Culture and Gram Stain Stat Lab 09/08/24 12:46 Uncollected Radiology Impressions Chest CT 09/08/24 07:13 IMPRESSION: 1. Diffuse bilateral reticular nodular opacifications most likely due to pneumonia. 2. Additional superimposed more discrete pulmonary nodules scattered throughout both lungs. The largest 8 mm at the LEFT lung base. These nodules were not present in 2022. Differential includes infection, septic emboli or metastatic disease. 3. Mediastinal and hilar lymphadenopathy. Mildly enlarged LEFT axillary lymph node. Neoplastic versus infectious /reactive. 4. Partially visualized LEFT neck mass measuring 1.8 x 2.4 cm just deep to the sternocleidomastoid muscle. This may be a lymph node. Not present on the prior study from 02/19/2022. Neck CT 09/08/24 10:22 IMPRESSION: 1. No neck mass or cervical adenopathy. The prominent soft tissue along the LEFT neck seen on the chest CT was probably due to rotation of the patient. 2. Normal larynx. 3. LEFT maxillary sinusitis. Abdomen/Pelvis CT 09/08/24 10:57 IMPRESSION: 1. Normal position of the PEG tube. No adjacent inflammation or abscess identified along the tract. 2. Reidentified is a reticular nodular pattern and superimposed pulmonary nodules at the lung bases. Differential includes infection, septic emboli and metastatic disease. 3. Small indeterminate distal paraesophageal lymph nodes and bilateral inguinal lymph nodes. May be reactive as the normal shape of the lymph node is maintained. 4. No ascites. 5. Circumferential rectal wall thickening. New since 2022. Recommend evaluation for proctitis. 6. Chronic but progression of bilateral hip osteonecrosis. Head CT 09/10/24 08:29 IMPRESSION: 1. No acute intracranial hemorrhage. No edema. 2. CT head is similar to 05/03/2024. Cervical Spine CT 09/11/24 12:22 IMPRESSION: 1. No acute osseous abnormality. 2. Incompletely imaged upper lobe pulmonary nodules suspicious for neoplastic disease. Lumbar Spine CT 09/11/24 12:22 IMPRESSION: No acute findings. Thoracic Spine CT 09/11/24 12:22 IMPRESSION: Unremarkable CT Spine. Chest X-Ray 09/13/24 13:03 IMPRESSION: 1. Final chest radiograph shows a PICC line ending at the cavoatrial junction in satisfactory position. The chest is otherwise negative. Laboratory Results WBC 5.12 10^3/uL (3.29-11.43) 09/14/24 04:46 RBC 4.30 10^6/uL (3.85-5.65) 09/14/24 04:46 Hgb 11.10 g/dL (11.27-16.99) L 09/14/24 04:46 Hct 36.0 % (37-53) L 09/14/24 04:46 MCV 83.7 fl (82-101) 09/14/24 04:46 MCH 25.8 pg (27-33) L 09/14/24 04:46 MCHC 30.8 g/dL (30-55) 09/14/24 04:46 RDW 15.3 % (12.1-15.1) H 09/14/24 04:46 Plt Count 314 10^3/cmm (157-399) 09/14/24 04:46 MPV 9.9 fL (7.4-10.4) 09/14/24 04:46 Neut % (Auto) 75.4 % 09/14/24 04:46 Lymph % (Auto) 10.5 % 09/14/24 04:46 Edmunds % (Auto) 9.0 % 09/14/24 04:46 Eos % (Auto) 4.1 % 09/14/24 04:46 Baso % (Auto) 0.6 % 09/14/24 04:46 Neut # (Auto) 3.86 10^3/uL (1.8-7.7) 09/14/24 04:46 Lymph # (Auto) 0.5 10^3/uL (0.8-4.8) L 09/14/24 04:46 Edmunds # (Auto) 0.5 10^3/uL (0.2-0.9) 09/14/24 04:46 Eos # (Auto) 0.2 10^3/uL (0.0-0.8) 09/14/24 04:46 Baso # (Auto) 0.0 10^3/uL (0.0-0.1) 09/14/24 04:46 Nucleated RBC % (auto) 0 % 09/14/24 04:46 Nucleated RBCs # 0.0 /100WBC 09/14/24 04:46 ESR 25 mm/hr (0-10) H 09/08/24 08:31 PT 16.20 SECONDS (12.1-14.9) H 09/11/24 01:41 INR 1.21 (0.8-1.2) H 09/11/24 01:41 Specimen Type Arterial 09/08/24 05:37 Sample Site Brachial, right 09/08/24 05:37 ABG pH 7.40 (7.35-7.45) 09/08/24 05:37 ABG pCO2 40.6 mmHg (35-45) 09/08/24 05:37 ABG pO2 84.4 mmHg (80.0-100.0) 09/08/24 05:37 ABG HCO3 25.0 mmol/L (22-26) 09/08/24 05:37 ABG O2 Saturation 97.3 09/08/24 05:37 ABG Base Excess 0.1 mmol/L (-2.0-2.0) 09/08/24 05:37 Filiberto Test N/a 09/08/24 05:37 A-a O2 Gradient 1.5 mmHg (5-10) L 09/08/24 05:37 Hematocrit 38.8 % (42-52) L 09/08/24 05:37 Hgb O2 Saturation 95.4 % (95-100) 09/08/24 05:37 Carboxyhemoglobin 1.4 %THgb (0.4-20.1) 09/08/24 05:37 Methemoglobin 0.6 % (0.4-1.5) 09/08/24 05:37 Total Hemoglobin 12.7 g/dL (14-18) L 09/08/24 05:37 Sodium 140.0 mmol/L (131-143) 09/08/24 05:37 Potassium 3.2 mmol/L (3.5-5.0) L 09/08/24 05:37 Glucose 104.0 mg/dL (70-115) 09/08/24 05:37 Ionized Calcium 1.2 mmol/L (1.1-1.4) 09/08/24 05:37 O2 Delivery Device Nc 09/08/24 05:37 O2 Liters/Min 1.0 % 09/08/24 05:37 Analytical Tech ID [email or web address] 09/08/24 05:37 Sodium 143 mmol/L (136-145) 09/14/24 04:46 Potassium 2.8 mmol/L (3.5-5.1) L* 09/14/24 04:46 Chloride 105 mmol/L (98-107) 09/14/24 04:46 Carbon Dioxide 27 mmol/L (22-29) 09/14/24 04:46 Anion Gap 13.8 (5-19) 09/14/24 04:46 BUN 3 mg/dL (6-20) L 09/14/24 04:46 Creatinine 0.2 mg/dL (0.7-1.2) L 09/14/24 04:46 GFR Calculation 578.6 mL/min (90-130) H 09/14/24 04:46 Glucose 96 mg/dL (65-115) 09/14/24 04:46 POC Glucose 74 mg/dL (70-110) 09/11/24 00:37 Estimat Average Glucose 82 09/09/24 03:53 Hemoglobin A1c 4.5 % (4.0-6.0) 09/09/24 03:53 Calculated Osmolality 292 mOsm/kg (285-295) 09/14/24 04:46 Lactic Acid 1.0 mmol/L (0.5-2.2) 09/12/24 09:17 Lactic Acid (Sepsis) 0.8 mmol/L (0.5-2.2) 09/08/24 08:34 Calcium 8.6 mg/dL (8.5-10.5) 09/14/24 04:46 Phosphorus 1.8 mg/dL (2.5-4.5) L 09/14/24 04:46 Magnesium 1.6 mg/dL (1.7-2.3) L 09/14/24 04:46 Total Bilirubin 0.2 mg/dL (0.15-1.2) 09/14/24 04:46 AST 8 U/L (0-40) 09/14/24 04:46 ALT < 5 U/L (0-41) 09/14/24 04:46 Alkaline Phosphatase 65 U/L (40-130) 09/14/24 04:46 Creatine Kinase 1019 U/L (39-308) H* 09/08/24 13:04 Troponin T Baseline 78 ng/L (0-15) H 09/08/24 13:04 Troponin T 120 Minute 78.94 ng/L (0-15) H 09/08/24 15:03 Delta Troponin T 0.94 ABS# (0-10) 09/08/24 15:03 Troponin T Hi Sens 6Hr 84.84 ng/L (0-15) H 09/08/24 19:14 Troponin T Hi Sens 6Hr Delta 6.84 ng/L (0-12) 09/08/24 19:14 C-Reactive Protein 153.3 mg/L (0.0-4.9) H 09/12/24 02:58 NT-Pro-B Natriuret Pep 687 pg/mL (0-125) H 09/08/24 05:37 Total Protein 6.2 g/dL (6.6-8.7) L 09/14/24 04:46 Albumin 3.3 g/dL (3.5-5.2) L 09/14/24 04:46 Globulin 2.9 g/dL (1.3-4.6) 09/14/24 04:46 Triglycerides 14 mg/dL (0-150) 09/09/24 03:53 Cholesterol < 4 mg/dL (0-200) 09/09/24 03:53 LDL Cholesterol, Calc -2 mg/dL (50-129) L 09/09/24 03:53 HDL Cholesterol 3 mg/dL (60-100) L 09/09/24 03:53 LDL/HDL Ratio -0.67 RATIO (0.00-3.22) L 09/09/24 03:53 Cholesterol/HDL Ratio 1.33 mg/dL (1.0-5.00) 09/09/24 03:53 Procalcitonin 0.04 ng/mL (0-0.5) 09/12/24 02:58 TSH 6.95 uIU/mL (0.27-4.20) H 09/09/24 03:53 Free T4 1.13 ng/dL (0.82-1.77) 09/08/24 13:04 Free T3 1.6 PG/ML (2.0-4.4) L 09/08/24 13:04 Urine Color Dark yellow (Yellow) A 09/08/24 05:45 Urine Appearance Slightly cloudy (CLEAR) 09/08/24 05:45 Urine pH 5 (5-7) 09/08/24 05:45 Ur Specific [place] 1.020 (1.005-1.030) 09/08/24 05:45 Urine Protein 1+ (Negative) A 09/08/24 05:45 Urine Glucose (UA) Norm (Normal) 09/08/24 05:45 Urine Ketones 1+ (Negative) H 09/08/24 05:45 Urine Blood 3+ (Negative) A 09/08/24 05:45 Urine Nitrate Negative (Negative) 09/08/24 05:45 Urine Bilirubin Neg (Negative) 09/08/24 05:45 Urine Urobilinogen Neg mg/dL (Negative) 09/08/24 05:45 Ur Leukocyte Esterase Negative (Negative) 09/08/24 05:45 Urine RBC >100 /hpf (0-2) H 09/08/24 05:45 Urine WBC 0-5 /hpf (0-5) 09/08/24 05:45 Ur Squamous Epith Cells 0-5 /hpf (0-5) 09/08/24 05:45 Amorphous Sediment 2+ /hpf 09/08/24 05:45 Urine Bacteria Trace /hpf (NONE) 09/08/24 05:45 Hyaline Casts 5.36 /lpf 09/08/24 05:45 Urine Mucus 3+ /hpf 09/08/24 05:45 Vancomycin Trough 14.8 ug/mL (10-15) 09/13/24 05:45 Lamotrigine 0.8 mcg/mL (2.5-15.0) L 09/08/24 13:04 Influenza A (PCR) Negative (Negative) 09/08/24 05:37 Influenza Type B (PCR) Negative (Negative) 09/08/24 05:37 RSV (PCR) Negative (Negative) 09/08/24 05:37 SARS-CoV-2 (PCR) Negative (Negative) 09/08/24 05:37 Vitals Last Vital Signs Temp 97.8 F 09/14/24 08:00 Pulse 92 09/14/24 08:13 Resp 16 09/14/24 08:13 BP 95/61 09/14/24 08:00 Pulse Ox 93 09/14/24 08:13 O2 Del Method Room Air 09/14/24 08:13 O2 Flow Rate 3 09/10/24 14:00 Discharge Plan Discharge Patient Disposition: Home Condition: Stable Prescriptions: New sod phos di, mono-K phos mono 250 mg tablet 1 tab feeding tube BID 5 Days Qty: 10 0RF vancomycin-diluent combo no.1 1.25 gram/250 mL Piggyback 1,250 mg continuous IV infusion Q8H Qty: 1500 0RF potassium chloride 40 mEq/15 mL liquid 20 meq PO DAILY 5 Days Qty: 35 0RF Continued baclofen 20 mg tablet 20 mg PO BID sertraline 100 mg Tablet 100 mg peg-tube QAM Qty: 30 0RF levetiracetam [Keppra] 1,000 mg tablet 1,000 mg PO BID Qty: 60 0RF loratadine [Claritin] 10 mg Tablet 10 mg feeding tube DAILY PRN (Reason: Allergic Symptoms) fluticasone propionate 50 mcg/actuation Blister With Device 2 inh INHALATION BEDTIME risperidone [Risperdal] 3 mg Tablet 1.5 mg PO TID guaifenesin [Saida-Tussin] 100 mg/5 mL Liquid 300 mg PO Q4H lamotrigine 25 mg tablet 50 mg PO BID levothyroxine 50 mcg Tablet 50 mcg feeding tube DAILY acetaminophen 325 mg Tablet 650 mg feeding tube Q4H PRN (Reason: Fever Or Pain) magnesium hydroxide [Milk of Magnesia] 400 mg/5 mL Suspension 30 ml feeding tube DAILY PRN (Reason: Constipation) Eldertonic 3.6 mg-0.75 mg /15 mL Liquid 30 ml PO TID Discontinued diltiazem HCl [Cardizem] 30 mg tablet 30 mg PO Q8H Qty: 90 0RF Rx Instructions: hold if bp systolic < 90 metoprolol tartrate 25 mg tablet 12.5 mg PO DAILY Rx Instructions: take 1/2 tablet by mouth daily Discharge Orders: Discharge Order (Routine); Ordered 09/14/24 Ordered By: Mateo Mackenzie Referrals: [facility] [Outside] Shima Larson FNP [Nurse Practitioner] - Keshawn Wilson DO [Physician] - 1 month (bilateral hip osteonecrosis) Discharge Diet: Advance as tolerated Discharge Activity: Resume usual activity Patient Instructions: MRSA (Methicillin-Resistant Staphylococcus Aureus) (GEN), PICC (Peripherally Inserted Central Catheter) (GEN), Opioid Safety Activity Restrictions/Additional Instructions: - Vancomycin 1250 mg IV every 8 hours for 6 total weeks, start date 09/14/2024 - Remove PICC line thereafter - Weekly, CBC, CMP, Vanco trough - Vanco trough 14.8, 09/13/2024 - PEG tube feeding Jevity 1.5 400 ml at (0262-7724), 400 ml at (4061-5654), 400 ml at (7764-3266), please notify physician if residuals greater than 200 mL, free water flushes 60 mL before and after feeding Discharge Attestations Time Spent in Discharge Care*: greater than 30 min Quality Metrics Clinical Quality Measures [ No reported AMI, CVA or VTE this stay] Coding Level of Care Code 26073 Total time (in minutes) for Discharge: 45 Diagnoses Bilateral pneumonia J18.9 Aspiration pneumonia J69.0 Acute hypoxic respiratory failure J96.01 Sepsis A41.9 Septic shock A41.9; R65.21 Breakthrough seizure G40.919 Staphylococcus aureus bacteremia with sepsis A41.01 Encephalopathy acute G93.40 MRSA bacteremia R78.81; B95.62
--- NOTE | 2024-09-14 11:59 | XR_ITS ---
WS: [id number] Exam: XR abdomen 1V* [id number] Date/Time of Exam: 09/14/2024 12:22 PM Reason For Exam: peg tube change Radiographic contrast was injected through an indwelling PEG tube. There is satisfactory opacification of the stomach indicating that the tube is within the confines of the stomach. No extravasation outside the confines of the GI tract is noted. No acute process identified in the abdomen otherwise.
--- NOTE | 2024-09-14 12:03 | PM.ACPR ---
Procedure/Consent Time out: Time Out Performed: Yes Consent: Consent for Procedure: Consent obtained from other (indicate) (Mother who is her guard), Risks & Benefits reviewed and Agrees to proceed with procedure Procedure Narrative: With the patient in a supine position the abdomen was prepped and draped in usual sterile fashion. Timeout was conducted. The previous PEG tube was removed with traction. I then advanced a 20 [place] balloon tube into the stomach, the balloon was inflated with 10 cc of water, the bumper was cinched down and the dressing was placed around. I then tested the catheter by injecting water into the stomach the water was then retrieved and was mixed with bile and gastric contents. The catheter was flushed, we will obtain an x-ray to verify successful placement before discharge. Acute Procedures Epistaxis Control: Time out performed: Yes
--- NOTE | 2024-09-14 13:24 | PC.NURSE ---
Called report to Janny Martins RN at [facility]
[2024-09-14] MEDS: pantoprazole 40 mg SDV IVP (14:54)
[2024-09-14] MEDS: enoxaparin 40 mg/0.4 mL Syringe SUBCUT (14:54)
== END 2024-09-14 16:00 | disposition intermediate care facility (04) | DRG 871 ==
LOC: ER 12:35 → ER IP 13:49 → ICU 17:01 → MEDSURG 09-10 19:32
PROVIDERS: Emergency Medicine; Admitting Provider Family Medicine; Emergency Provider Emergency Medicine; PCP Internal Medicine; Visit Provider Family Medicine
DX: A41.2 Sepsis due to unspecified staphylococcus (principal); G93.41 Metabolic encephalopathy; J18.9 Pneumonia, unspecified organism; J69.0 Pneumonitis due to inhalation of food and vomit; R65.21 Severe sepsis with septic shock; J96.01 Acute respiratory failure with hypoxia; F84.0 Autistic disorder; I42.9 Cardiomyopathy, unspecified; F33.1 Major depressive disorder, recurrent, moderate; G40.919 Epilepsy, unspecified, intractable, without status epilepticus; M87.852 Other osteonecrosis, left femur; M87.851 Other osteonecrosis, right femur; E03.9 Hypothyroidism, unspecified; K21.9 Gastro-esophageal reflux disease without esophagitis; D64.9 Anemia, unspecified; E55.9 Vitamin D deficiency, unspecified; E53.8 Deficiency of other specified B group vitamins; F17.220 Nicotine dependence, chewing tobacco, uncomplicated; K62.89 Other specified diseases of anus and rectum; J45.909 Unspecified asthma, uncomplicated; K59.09 Other constipation; F41.0 Panic disorder [episodic paroxysmal anxiety]; Z93.1 Gastrostomy status
CPT/HCPCS: 36415; 36416; 36573; 36600; 51702; 70450; 70491; 71045; 71260; 72125; 72128; 72131; 74018; 74177; 80048; 80051; 80053; 80061; 80175; 80177; 80202; 81001; 82330; 82550; 82805; 82962; 83036; 83605; 83735; 83880; 84100; 84145; 84439; 84443; 84481; 84484; 85025; 85610; 85651; 86140; 87040; 87070; 87075; 87077; 87086; 87150; 87186; 87205; 87637; 92610; 93005; 93306; 93312; 93320; 93325; 94640; 94664; 96367; 96372; 96375; 99285; J1650; J1953; J2250; J2470; J2543; J2704; J3370; J3372; J3475; J3480; J7030; J7050; J9999; Q9963

== ENCOUNTER → 2025-01-11 13:55 | Outpatient (BNVA) | payer MEDICAID, SELFPAY | PROVIDERS: PCP Internal Medicine; Visit Provider Internal Medicine Cardiovascular Disease | DX: I42.9 Cardiomyopathy, unspecified (principal); G40.909 Epilepsy, unspecified, not intractable, without status epilepticus; I95.9 Hypotension, unspecified; Z86.19 Personal history of other infectious and parasitic diseases | CPT/HCPCS: 99213 ==